=== PATIENT | female | born 1935 | race Caucasian/White ===

== ENCOUNTER 2018-09-18 17:06 | Inpatient (IN) | payer MEDICARE, BC ==
[2018-09-18] MEDS ORDERED: SODIUM CHLORIDE 0.9% 1,000 ML IV ONE (17:15)
[2018-09-18] MEDS ORDERED: ONDANSETRON 4 MG/2 ML VIAL IVP STA (17:35)
--- NOTE | 2018-09-18 17:48 | ED ---
Altered Mental Status HPI - General Chief Complaint: Altered Mental Status Stated Complaint: Altered Mental Status Time Seen by Provider: 09/18/18 17:08 Source: EMS, RN notes reviewed, old records reviewed Mode of arrival: EMS Limitations: altered mental status - History of Present Illness Initial Comments: This is a 83-year-old female the ER for evaluation of altered mental status, patient is a poor historian and unable to give any history secondary to dementia here for Change in mental status, history of CVA. Otherwise history is obtained from EMS and patient's transferring charting, patient comes with a care facility.( MD Complaint: altered mental status, decreased responsiveness, weakness -: hour(s) Severity: moderate Consistency of Symptoms: getting worse Context: history of similar presentation Associated Symptoms: denies other symptoms - Related Data Home Medications Medication Instructions Recorded Confirmed Acetaminophen Tab [Tylenol Tab] 650 mg PO Q6H PRN 09/18/18 09/18/18 Ascorbic Acid [Vitamin C] 1,000 mg PO BID 09/18/18 09/18/18 Aspirin 81 mg PO HS 09/18/18 09/18/18 Baclofen [Lioresal] 20 mg PO BID 09/18/18 09/18/18 Cholecalciferol [Vitamin D3] 5,000 unit PO MO 09/18/18 09/18/18 Divalproex [Depakote] 250 mg PO BID@0700,1600 09/18/18 09/18/18 Ferrous Sulfate [Feosol] 325 mg PO TID@0700,1300,1900 09/18/18 09/18/18 Ipratropium-Albuterol Nebulize 3 ml INHALATION RT-Q4H PRN 09/18/18 09/18/18 [Duoneb 0.5 mg-3 mg/3 ml Soln] Levothyroxine Sodium [Synthroid] 50 mcg PO DAILY 09/18/18 09/18/18 Lisinopril [Zestril] 5 mg PO DAILY 09/18/18 09/18/18 Melatonin 9 mg PO HS PRN 09/18/18 09/18/18 Methenamine Hippurate 1 gm PO BID 09/18/18 09/18/18 Omeprazole [PriLOSEC] 20 mg PO DAILY 09/18/18 09/18/18 Sertraline [Zoloft] 100 mg PO DAILY 09/18/18 09/18/18 amLODIPine [Norvasc] 10 mg PO DAILY 09/18/18 09/18/18 rOPINIRole HCL [Requip] 0.25 mg PO DAILY 09/18/18 09/18/18 Allergies Allergy/AdvReac Type Severity Reaction Status Date / Time codeine AdvReac Unknown Verified 09/18/18 18:08 Review of Systems ROS Statement: Those systems with pertinent positive or pertinent negative responses have been documented in the HPI. ROS Other: All systems not noted in ROS Statement are negative. Past Medical History Past Medical History: CVA/TIA, GERD/Reflux, Hypertension, Memory Impairment, Osteoarthritis (OA), Thyroid Disorder Additional Past Medical History / Comment(s): restless leg syndrome, hemiplegia, hemiparesis, anemia, History of Any Multi-Drug Resistant Organisms: Unobtainable Additional Past Surgical History / Comment(s): ileostomy Past Psychological History: Unable to Obtain Smoking Status: Unknown if ever smoked Past Alcohol Use History: Unable to Obtain Past Drug Use History: Unable to Obtain General Exam Limitations: altered mental status General appearance: alert, in no apparent distress Head exam: Present: atraumatic, normocephalic, normal inspection Eye exam: Present: normal appearance, PERRL, EOMI. Absent: scleral icterus, conjunctival injection, periorbital swelling ENT exam: Present: normal exam, mucous membranes moist Neck exam: Present: normal inspection. Absent: tenderness, meningismus, lympha denopathy Respiratory exam: Present: normal lung sounds bilaterally. Absent: respiratory distress, wheezes, rales, rhonchi, stridor Cardiovascular Exam: Present: regular rate, normal rhythm, normal heart sounds. Absent: systolic murmur, diastolic murmur, rubs, gallop, clicks GI/Abdominal exam: Present: soft, normal bowel sounds. Absent: distended, tenderness, guarding, rebound, rigid Extremities exam: Present: normal inspection, full ROM, normal capillary refill. Absent: tenderness, pedal edema, joint swelling, calf tenderness Back exam: Present: normal inspection Neurological exam: Present: alert, oriented X3, CN II-XII intact Psychiatric exam: Present: normal affect, normal mood Skin exam: Present: warm, dry, intact, normal color. Absent: rash Course Vital Signs 09/18/18 17:13 Temperature 99.1 F Pulse Rate 89 Respiratory 18 Rate Blood Pressure 146/61 O2 Sat by Pulse 98 Oximetry - Reevaluation(s) Reevaluation #1: 09/18/18 18:12 Medical record reviewed as well as transfer paperwork Reevaluation #2: 09/18/18 18:12 No current improvement in patient's mental state Medical Decision Making - Medical Decision Making 83 female the ER for evaluation of altered mental status, significant urinary t ract infection dehydration with a lecture abnormalities. Patient will admit for rehydration and IV antibiotics - Lab Data Result diagrams: 09/18/18 17:18 09/18/18 17:18 Lab Results 09/18/18 09/18/18 09/18/18 Range/Units 17:18 17:18 17:18 WBC 12.5 H (3.8-10.6) k/uL RBC 3.24 L (3.80-5.40) m/uL Hgb 10.5 L (11.4-16.0) gm/dL Hct 32.5 L (34.0-46.0) % MCV 100.3 H (80.0-100.0) fL MCH 32.3 (25.0-35.0) pg MCHC 32.2 (31.0-37.0) g/dL RDW 14.6 (11.5-15.5) % Plt Count 169 (150-450) k/uL Neutrophils % 65 % Lymphocytes % 20 % Monocytes % 8 % Eosinophils % 4 % Basophils % 0 % Neutrophils # 8.1 H (1.3-7.7) k/uL Lymphocytes # 2.5 (1.0-4.8) k/uL Monocytes # 1.1 H (0-1.0) k/uL Eosinophils # 0.5 (0-0.7) k/uL Basophils # 0.0 (0-0.2) k/uL Hypochromasia Slight Macrocytosis Slight PT (9.0-12.0) sec INR (<1.2) APTT (22.0-30.0) sec Sodium 143 (137-145) mmol/L Potassium 6.4 H* (3.5-5.1) mmol/L Chloride 118 H (98-107) mmol/L Carbon Dioxide 15 L (22-30) mmol/L Anion Gap 10 mmol/L BUN 76 H (7-17) mg/dL Creatinine 1.40 H (0.52-1.04) mg/dL Est GFR (CKD-EPI)AfAm 40 (>60 ml/min/1.73 sqM) Est GFR (CKD-EPI)NonAf 35 (>60 ml/min/1.73 sqM) Glucose 101 H (74-99) mg/dL Calcium 10.5 H (8.4-10.2) mg/dL Total Bilirubin 0.3 (0.2-1.3) mg/dL AST 21 (14-36) U/L ALT 20 (9-52) U/L Alkaline Phosphatase 84 (38-126) U/L Ammonia 22 (<30) umol/L Troponin I (0.000-0.034) ng/mL Total Protein 8.5 H (6.3-8.2) g/dL Albumin 4.2 (3.5-5.0) g/dL Urine Color Urine Appearance (Clear) Urine pH (5.0-8.0) Ur Specific [place] (1.001-1.035) Urine Protein (Negative) Urine Glucose (UA) (Negative) Urine Ketones (Negative) Urine Blood (Negative) Urine Nitrite (Negative) Urine Bilirubin (Negative) Urine Urobilinogen (<2.0) mg/dL Ur Leukocyte Esterase (Negative) Urine RBC (0-5) /hpf Urine WBC (0-5) /hpf Urine WBC Clumps (None) /hpf Urine Bacteria (None) /hpf Urine Opiates Screen (NotDetected) Ur Oxycodone Screen (NotDetected) Urine Methadone Screen (NotDetected) Ur Propoxyphene Screen (NotDetected) Ur Barbiturates Screen (NotDetected) U Tricyclic Antidepress (NotDetected) Ur Phencyclidine Scrn (NotDetected) Ur Amphetamines Screen (NotDetected) U Methamphetamines Scrn (NotDetected) U Benzodiazepines Scrn (NotDetected) Urine Cocaine Screen (NotDetected) U Marijuana (THC) Screen (NotDetected) 09/18/18 09/18/18 09/18/18 Range/Units 17:18 17:18 17:56 WBC (3.8-10.6) k/uL RBC (3.80-5.40) m/uL Hgb (11.4-16.0) gm/dL Hct (34.0-46.0) % MCV (80.0-100.0) fL MCH (25.0-35.0) pg MCHC (31.0-37.0) g/dL RDW (11.5-15.5) % Plt Count (150-450) k/uL Neutrophils % % Lymphocytes % % Monocytes % % Eosinophils % % Basophils % % Neutrophils # (1.3-7.7) k/uL Lymphocytes # (1.0-4.8) k/uL Monocytes # (0-1.0) k/uL Eosinophils # (0-0.7) k/uL Basophils # (0-0.2) k/uL Hypochromasia Macrocytosis PT 10.3 (9.0-12.0) sec INR 1.0 (<1.2) APTT 20.9 L (22.0-30.0) sec Sodium (137-145) mmol/L Potassium (3.5-5.1) mmol/L Chloride (98-107) mmol/L Carbon Dioxide (22-30) mmol/L Anion Gap mmol/L BUN (7-17) mg/dL Creatinine (0.52-1.04) mg/dL Est GFR (CKD-EPI)AfAm (>60 ml/min/1.73 sqM) Est GFR (CKD-EPI)NonAf (>60 ml/min/1.73 sqM) Glucose (74-99) mg/dL Calcium (8.4-10.2) mg/dL Total Bilirubin (0.2-1.3) mg/dL AST (14-36) U/L ALT (9-52) U/L Alkaline Phosphatase (38-126) U/L Ammonia (<30) umol/L Troponin I <0.012 (0.000-0.034) ng/mL Total Protein (6.3-8.2) g/dL Albumin (3.5-5.0) g/dL Urine Color Light Yellow Urine Appearance Cloudy H (Clear) Urine pH 5.0 (5.0-8.0) Ur Specific [place] 1.013 (1.001-1.035) Urine Protein Trace H (Negative) Urine Glucose (UA) Negative (Negative) Urine Ketones Negative (Negative) Urine Blood Moderate H (Negative) Urine Nitrite Negative (Negative) Urine Bilirubin Negative (Negative) Urine Urobilinogen <2.0 (<2.0) mg/dL Ur Leukocyte Esterase Large H (Negative) Urine RBC 29 H (0-5) /hpf Urine WBC >182 H (0-5) /hpf Urine WBC Clumps Many H (None) /hpf Urine Bacteria Rare H (None) /hpf Urine Opiates Screen Not Detected (NotDetected) Ur Oxycodone Screen Not Detected (NotDetected) Urine Methadone Screen Not Detected (NotDetected) Ur Propoxyphene Screen Not Detected (NotDetected) Ur Barbiturates Screen Not Detected (NotDetected) U Tricyclic Antidepress Not Detected (NotDetected) Ur Phencyclidine Scrn Not Detected (NotDetected) Ur Amphetamines Screen Not Detected (NotDetected) U Methamphetamines Scrn Not Detected (NotDetected) U Benzodiazepines Scrn Not Detected (NotDetected) Urine Cocaine Screen Not Detected (NotDetected) U Marijuana (THC) Screen Not Detected (NotDetected) - EKG Data -: EKG Interpreted by Me (EKG shows sinus rhythm rate of 80, OR 180, QRS 90, QTc 408) Disposition Clinical Impression: Altered mental status, UTI (urinary tract infection), ARF (acute renal failure) Disposition: ADMITTED IP TO THIS [facility] Condition: Fair Is patient prescribed a controlled substance at d/c from ED?: No Referrals: Miguel Newton MD [Primary Care Provider] - 1-2 days
[2018-09-18 17:54] LABS: Albumin 4.2 g/dL (3.5-5.0); Basophils % (A) 0 %; Calcium 10.5 mg/dL (8.4-10.2); Eosinophils # (A) 0.5 k/uL (0-0.7); Eosinophils % (A) 4 %; HCT 32.5 % (34.0-46.0); HGB 10.5 gm/dL (11.4-16.0); Hypochromasia Slight; Lymphocytes # (A) 2.5 k/uL (1.0-4.8); Lymphocytes % (A) 20 %; MCH 32.3 pg (25.0-35.0); MCHC 32.2 g/dL (31.0-37.0); MCV 100.3 fL (80.0-100.0); Macrocytosis Slight; Mean Platelet Volume 10.6; Monocytes # (A) 1.1 k/uL (0-1.0); Monocytes % (A) 8 %; Neutrophils # (A) 8.1 k/uL (1.3-7.7); Neutrophils % (A) 65 %; Platelet Count 169 k/uL (150-450); RBC 3.24 m/uL (3.80-5.40); RDW 14.6 % (11.5-15.5); Total Bilirubin 0.3 mg/dL (0.2-1.3); Total Protein 8.5 g/dL (6.3-8.2); WBC 12.5 k/uL (3.8-10.6)
[2018-09-18 18:01] LABS: Potassium 6.4 mmol/L (3.5-5.1)
[2018-09-18 18:09] LABS: Prothrombin Time 10.3 sec (9.0-12.0)
[2018-09-18 18:14] LABS: Partial Thromboplastin Time 20.9 sec (22.0-30.0)
[2018-09-18 18:24] LABS: Appearance,Urine Cloudy (Clear); Bacteria,Urine Rare /hpf; Bilirubin,Urine Negative (Negative); Blood,Urine Moderate (Negative); Color,Urine Light Yellow; Glucose,Urine (UA) Negative (Negative); Ketones,Urine Negative (Negative); Leukocyte Esterase,Urine Large (Negative); Nitrite,Urine Negative (Negative); Protein,Urine Trace (Negative); RBC,Urine 29 /hpf (0-5); Specific Gravity,Urine 1.013 (1.001-1.035); Urobilinogen,Urine <2.0 mg/dL (<2.0); WBC,Urine >182 /hpf (0-5)
[2018-09-18 18:33] LABS: Amphetamine Screen,Urine Not Detected (NotDetected); Barbiturate Screen,Urine Not Detected (NotDetected); Benzodiazepines Screen,Urine Not Detected (NotDetected); Cocaine Screen,Urine Not Detected (NotDetected); Methadone Screen, Urine Not Detected (NotDetected); Opiate Screen,Urine Not Detected (NotDetected); Oxycodone Screen, Urine Not Detected (NotDetected); Phencyclidine Screen,Urine Not Detected (NotDetected); Tricyclic Antidepressant,Urine Not Detected (NotDetected); Urn Cannabinoid Scrn Not Detected (NotDetected)
[2018-09-18] MEDS ORDERED: SODIUM CHLORIDE 0.9% 1,000 ML IV STA (18:39)
[2018-09-18] MEDS ORDERED: SODIUM CHLORIDE 0.9% 500 ML 500 ML IV STA (18:39)
--- NOTE | 2018-09-18 19:57 | CT ---
EXAMINATION: CT brain wo con DATE AND TIME: 09/18/2018 7:32 PM CLINICAL INDICATION: PHH; pain TECHNIQUE: Standard departmental protocol.; 1099.4; COMPARISON: CT 06/09/2009 FINDINGS: The calvarium is intact. There is no intracranial hemorrhage. There is no intracranial mass or mass effect. No definite new intra-axial or extra-axial attenuation defect. The paranasal sinuses, middle ear cavities, and mastoid sinus air cells are clear. The orbits are unremarkable. IMPRESSION: NO ACUTE PROCESS.
[2018-09-18] MEDS ORDERED: DEXTROSE 50% SYRINGE 50 ML IVP STA (20:25)
[2018-09-18] MEDS ORDERED: INSULIN REGULAR 100 UNIT/ML VIAL IV ONE (20:25)
[2018-09-18] MEDS ORDERED: SODIUM BICARB 8.4% 50 ML SYR (1 MEQ/ML) IV STA (20:25)
[2018-09-18 22:07] VITALS: BMI 32.9
[2018-09-18] MEDS ORDERED: IPRATROPIUM-ALBUTEROL 3 ML NEB INHALATION PRN (22:32)
[2018-09-19 06:21] LABS: Glucose,Whole Blood 122 mg/dL (75-99)
[2018-09-19] MEDS: DIVALPROEX 250 MG TABLET.DR PO SCH ×2 (06:27→18:50)
[2018-09-19 07:28] LABS: Calcium 9.7 mg/dL (8.4-10.2)
[2018-09-19 07:29] LABS: Basophils % (A) 0 %; Eosinophils # (A) 0.3 k/uL (0-0.7); Eosinophils % (A) 3 %; HGB 9.5 gm/dL (11.4-16.0); Hypochromasia Slight; Lymphocytes # (A) 2.1 k/uL (1.0-4.8); Lymphocytes % (A) 22 %; MCH 32.2 pg (25.0-35.0); MCHC 31.7 g/dL (31.0-37.0); MCV 101.5 fL (80.0-100.0); Macrocytosis Slight; Mean Platelet Volume 10.1; Monocytes % (A) 10 %; Neutrophils # (A) 5.7 k/uL (1.3-7.7); Neutrophils % (A) 61 %; Platelet Count 145 k/uL (150-450); RBC 2.96 m/uL (3.80-5.40); RDW 14.6 % (11.5-15.5); WBC 9.4 k/uL (3.8-10.6)
[2018-09-19] MEDS: ACETAMINOPHEN TAB 325 MG TAB PO PRN (09:09)
[2018-09-19] MEDS: BACLOFEN 10 MG TAB PO SCH ×2 (09:09→20:00)
[2018-09-19] MEDS: ENOXAPARIN 40 MG/0.4 ML SYRINGE SQ SCH (09:10)
--- NOTE | 2018-09-19 14:10 | P.CNNES ---
History of Present Illness Consult date: 09/19/18 Reason for Consult: AMS Chief complaint: AMS History of Present Illness: Patient is a 83-year-old female,, who is a poor historian due to dementia, was brought to the hospital for altered mental status, probably worse from baseline. Patient tells me that she came to the hospital but was she was "shaking a little". Patient denies any history of Parkinson's disease, although she is on Requip very low dose. Patient is very pleasant, but confused. Patient denies any stroke symptoms, focal deficits. There was some complaints of decreased responsiveness.patient underwent computed tomography scan of the head, which revealed no acute process. blood test shows WBC 12.5 hemoglobin 10.5, with elevated MCV 100.3, platelets 169. INR normal, Chem-7 showed sodium 143 potassium 6.4, which has improved to 6.0. BUNs 76 and creatinine 1.40, which has improved to 56 and 0.79 respectively. calcium is elevated and 0.5 but now normal 9.7.UA showed, WBCs more than 182, rare bacteria. patient is on Depakote for unclear reasons. Patient does not believe she has any history of seizures. Patient has been diagnosed with UTI, started on Rocephin 1 g every 24 hours. she denies headache. Patient denies diabetes. Review of Systems Constitutional: Reports as per HPI, Denies chronic headaches, Denies fever Ears, nose, mouth and throat: Denies dysphagia, Denies headache, Denies vertigo Neurological: Reports weakness, Denies aphasia, Denies headaches, Denies visual changes Endocrine: Reports as per HPI Past Medical History Past Medical History: CVA/TIA, GERD/Reflux, Hypertension, Memory Impairment, Osteoarthritis (OA), Seizure Disorder, Thyroid Disorder Additional Past Medical History / Comment(s): restless leg syndrome, hemiplegia, hemiparesis, anemia, History of Any Multi-Drug Resistant Organisms: MRSA Date of last positivie culture/infection: 2008 MDRO Source:: stool (per pt's daughter) Additional Past Surgical History / Comment(s): ileostomy Past Anesthesia/Blood Transfusion Reactions: No Reported Reaction Past Psychological History: Anxiety Additional Psychological History / Comment(s): per pt's daughter Smoking Status: Never smoker Past Alcohol Use History: Unable to Obtain Past Drug Use History: Unable to Obtain Additional Drug Use History / Comment(s): per patient's daughter, 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 - Past Family History Father Family Medical History: Cancer Additional Family Medical History / Comment(s): lung CA Mother Family Medical History: Cancer Sister(s) Additional Family Medical History / Comment(s): emphysema Medications and Allergies Home Medications Medication Instructions Recorded Confirmed Type Acetaminophen Tab [Tylenol Tab] 650 mg PO Q6H PRN 09/18/18 09/18/18 History Ascorbic Acid [Vitamin C] 1,000 mg PO BID 09/18/18 09/18/18 History Aspirin 81 mg PO HS 09/18/18 09/18/18 History Baclofen [Lioresal] 20 mg PO BID 09/18/18 09/18/18 History Cholecalciferol [Vitamin D3] 5,000 unit PO MO 09/18/18 09/18/18 History Divalproex [Depakote] 250 mg PO BID@0700,1600 09/18/18 09/18/18 History Ferrous Sulfate [Feosol] 325 mg PO TID@0700,1300,1900 09/18/18 09/18/18 History Ipratropium-Albuterol Nebulize 3 ml INHALATION RT-Q4H PRN 09/18/18 09/18/18 History [Duoneb 0.5 mg-3 mg/3 ml Soln] Levothyroxine Sodium [Synthroid] 50 mcg PO DAILY 09/18/18 09/18/18 History Lisinopril [Zestril] 5 mg PO DAILY 09/18/18 09/18/18 History Melatonin 9 mg PO HS PRN 09/18/18 09/18/18 History Methenamine Hippurate 1 gm PO BID 09/18/18 09/18/18 History Omeprazole [PriLOSEC] 20 mg PO DAILY 09/18/18 09/18/18 History Sertraline [Zoloft] 100 mg PO DAILY 09/18/18 09/18/18 History amLODIPine [Norvasc] 10 mg PO DAILY 09/18/18 09/18/18 History rOPINIRole HCL [Requip] 0.25 mg PO DAILY 09/18/18 09/18/18 History Allergies Allergy/AdvReac Type Severity Reaction Status Date / Time codeine AdvReac Unknown Verified 09/18/18 18:08 Physical Examination - Vital Signs Vital Signs: Vital Signs Temp Pulse Pulse Resp BP BP Pulse Ox 09/19/18 12:50 97.7 F 74 16 147/78 94 L 09/19/18 11:49 99 09/19/18 08:30 98.1 F 73 16 144/61 94 L 09/19/18 04:00 98.2 F 75 19 98 09/18/18 23:31 70 19 09/18/18 23:27 98.2 F 70 19 144/65 98 09/18/18 21:59 98.6 F 82 19 149/78 96 09/18/18 21:21 76 18 132/64 99 09/18/18 21:08 77 18 132/64 99 09/18/18 20:14 65 18 104/54 100 09/18/18 17:13 99.1 F 89 18 146/61 98 Intake and Output 09/18/18 09/19/18 09/19/18 22:59 06:59 14:59 Intake Total 1300 360 Output Total 50 250 Balance 1250 110 Intake: Intake, IV Titration 800 Amount cefTRIAXone 1 gm In 800 Sodium Chloride 0.9% 50 ml @ 100 mls/hr IVPB Q24HR [facility] Rx#:[id number] Oral 500 360 Output: Urine 250 Stool 50 Other: Voiding Method Diaper Diaper # Voids 1 Weight 89.811 kg 89.8 kg On examination patient is an elderly female, in no distress. She is alert and awake, pleasantly confused. Patient states that it is year 2018, could not tell the month.. She could not tell what building she is in or the city although states that she is in [facility]. She has 6 children. She knows name of the current president. Her speech and language functions are normal. Attention span, concentration and fund of knowledge is limited. On cranial nerve examination, pupils are round and reacting to light. Visual mcgarry appears full, face is symmetric and tongue protrudes in midline. On muscle strength testing there is nopronator drift in the strength is normal in both arms distally and proximally. Patient's strength is normal in the right leg, although she has left partial foot drop. Patient states she does have chronic back issues, which probably is the cause of left foot weakness. Sensations are equal. Reflexes are diminished and plantars withdrawal. Patient has moderate postural tremor on the right, mild on the left. Patient also has moderate tremors at rest bilaterally, right slightly more than left. Tone of muscles is normal. Bulk of muscles normal. Results - Laboratory Findings CBC and BMP: 09/19/18 06:51 09/19/18 06:51 Abnormal Lab Findings: Abnormal Labs 09/18/18 09/18/18 09/18/18 17:18 17:18 17:18 WBC 12.5 H RBC 3.24 L Hgb 10.5 L Hct 32.5 L MCV 100.3 H Plt Count Neutrophils # 8.1 H Monocytes # 1.1 H APTT 20.9 L Sodium Potassium 6.4 H* Chloride 118 H Carbon Dioxide 15 L BUN 76 H Creatinine 1.40 H Glucose 101 H POC Glucose (mg/dL) Calcium 10.5 H Total Protein 8.5 H Urine Appearance Urine Protein Urine Blood Ur Leukocyte Esterase Urine RBC Urine WBC Urine WBC Clumps Urine Bacteria 09/18/18 09/19/18 09/19/18 17:56 06:20 06:51 WBC RBC 2.96 L Hgb 9.5 L Hct 30.0 L MCV 101.5 H Plt Count 145 L Neutrophils # Monocytes # APTT Sodium Potassium Chloride Carbon Dioxide BUN Creatinine Glucose POC Glucose (mg/dL) 122 H Calcium Total Protein Urine Appearance Cloudy H Urine Protein Trace H Urine Blood Moderate H Ur Leukocyte Esterase Large H Urine RBC 29 H Urine WBC >182 H Urine WBC Clumps Many H Urine Bacteria Rare H 09/19/18 06:51 WBC RBC Hgb Hct MCV Plt Count Neutrophils # Monocytes # APTT Sodium 148 H Potassium 6.0 H Chloride 122 H Carbon Dioxide 21 L BUN 56 H Creatinine Glucose 103 H POC Glucose (mg/dL) Calcium Total Protein Urine Appearance Urine Protein Urine Blood Ur Leukocyte Esterase Urine RBC Urine WBC Urine WBC Clumps Urine Bacteria Assessment and Plan Assessment: * Altered mental status, probably due to mild delirium/metabolic encephalopathy, probability due to reasons mentioned below. * Acute UTI * Acute renal insufficiency, improving. * Electrolyte imbalance, with hyperkalemia, hypocalcemia, improved. * Tremors, possibly metabolic, possible enhanced from Depakote. No definitive parkinsonism. * Dementia, at least moderate degree. Plan: * We will check Depakote level, B12, folate. * EEG to rule out any epileptiform activity and evaluate for encephalopathy. * Your medical management. * Patient has tremors, which could be related to metabolic encephalopathy versus related to Depakote. May need follow-up in the neurology office, once medically stabilized to rule out parkinsonism. * We will follow clinically.
[2018-09-19] MEDS: LISINOPRIL 5 MG TAB PO SCH (18:50)
[2018-09-19] MEDS: amLODIPine 10 MG TAB PO SCH (18:51)
[2018-09-19] MEDS: ASPIRIN 81 MG PO SCH (19:59)
[2018-09-19] MEDS: ASCORBIC ACID 500 MG TAB PO SCH (20:00)
[2018-09-19] MEDS: FAMOTIDINE 20 MG/2 ML VIAL IV SCH (20:52)
[2018-09-19] MEDS: METHENAMINE HIPPURATE 1 GM PO SCH (20:53)
[2018-09-19] MEDS ORDERED: FAMOTIDINE 20 MG/2 ML VIAL IV SCH (21:00)
--- NOTE | 2018-09-19 22:31 | P.HPIM ---
History of Present Illness This is a pleasant 83 years old male with past medical history of CVA/TIA, GERD, hypertension, memory impairment, osteoarthritis, seizure disorder, hypothyroidism, restless leg syndrome Residents with altered mental status, patient could not provide history and information, she has history of dementia, patient was sent from [facility] for altered mental status. Patient is fully awake and some orientation however she is poor historian, she does not know why she is in the hospital. however she feels generally week. Vitals are stable, patient is afebrile. WBC 12.5 on presentation coming down to 9.4 and elements of hemodilution, hemoglobin 9.5, platelets 145. Potassium 6.4 coming down to 6.0, sodium 148, creatinine 1.4, down to 0.7. Urinalysis is suspicious for infection. Urine drug screen is negative. EKG showing normal sinus rhythm at [address]-T changes.brain CT is showing no acute process. There is no chest x-ray done. Patient was started on ceftriaxone, and given intravenous fluids Review of Systems CONSTITUTIONAL: No fever, no malaise, no fatigue. HEENT: No recent visual problems or hearing problems. Denied any sore throat. CARDIOVASCULAR: No orthopnea, PND, no palpitations, no syncope. PULMONARY: No shortness of breath, no cough, no hemoptysis. GASTROINTESTINAL: No diarrhea, no nausea, no vomiting, no abdominal pain. Normoactive bowel sounds. NEUROLOGICAL: No headaches, no weakness, no numbness. HEMATOLOGICAL: Denies any bleeding or petechiae. GENITOURINARY: Denies any burning micturition, frequency, or urgency. MUSCULOSKELETAL/RHEUMATOLOGICAL: Denies any joint pain, swelling, or any muscle pain. ENDOCRINE: Denies any polyuria or polydipsia. Past Medical History Past Medical History: CVA/TIA, GERD/Reflux, Hypertension, Memory Impairment, Osteoarthritis (OA), Seizure Disorder, Thyroid Disorder Additional Past Medical History / Comment(s): restless leg syndrome, hemiplegia, hemiparesis, anemia, History of Any Multi-Drug Resistant Organisms: MRSA Date of last positivie culture/infection: 2008 MDRO Source:: stool (per pt's daughter) Additional Past Surgical History / Comment(s): ileostomy Past Anesthesia/Blood Transfusion Reactions: No Reported Reaction Past Psychological History: Anxiety Additional Psychological History / Comment(s): per pt's daughter Smoking Status: Never smoker Past Alcohol Use History: Unable to Obtain Past Drug Use History: Unable to Obtain Additional Drug Use History / Comment(s): per patient's daughter, 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 - Past Family History Father Family Medical History: Cancer Additional Family Medical History / Comment(s): lung CA Mother Family Medical History: Cancer Sister(s) Additional Family Medical History / Comment(s): emphysema Medications and Allergies Home Medications Medication Instructions Recorded Confirmed Type Acetaminophen Tab [Tylenol Tab] 650 mg PO Q6H PRN 09/18/18 09/18/18 History Ascorbic Acid [Vitamin C] 1,000 mg PO BID 09/18/18 09/18/18 History Aspirin 81 mg PO HS 09/18/18 09/18/18 History Baclofen [Lioresal] 20 mg PO BID 09/18/18 09/18/18 History Cholecalciferol [Vitamin D3] 5,000 unit PO MO 09/18/18 09/18/18 History Divalproex [Depakote] 250 mg PO BID@0700,1600 09/18/18 09/18/18 History Ferrous Sulfate [Feosol] 325 mg PO TID@0700,1300,1900 09/18/18 09/18/18 History Ipratropium-Albuterol Nebulize 3 ml INHALATION RT-Q4H PRN 09/18/18 09/18/18 History [Duoneb 0.5 mg-3 mg/3 ml Soln] Levothyroxine Sodium [Synthroid] 50 mcg PO DAILY 09/18/18 09/18/18 History Lisinopril [Zestril] 5 mg PO DAILY 09/18/18 09/18/18 History Melatonin 9 mg PO HS PRN 09/18/18 09/18/18 History Methenamine Hippurate 1 gm PO BID 09/18/18 09/18/18 History Omeprazole [PriLOSEC] 20 mg PO DAILY 09/18/18 09/18/18 History Sertraline [Zoloft] 100 mg PO DAILY 09/18/18 09/18/18 History amLODIPine [Norvasc] 10 mg PO DAILY 09/18/18 09/18/18 History rOPINIRole HCL [Requip] 0.25 mg PO DAILY 09/18/18 09/18/18 History Allergies Allergy/AdvReac Type Severity Reaction Status Date / Time codeine AdvReac Unknown Verified 09/18/18 18:08 Physical Exam Vitals: Vital Signs Temp Pulse Pulse Resp BP BP Pulse Ox 09/19/18 04:00 98.2 F 75 19 98 09/18/18 23:31 70 19 09/18/18 23:27 98.2 F 70 19 144/65 98 09/18/18 21:59 98.6 F 82 19 149/78 96 09/18/18 21:21 76 18 132/64 99 09/18/18 21:08 77 18 132/64 99 09/18/18 20:14 65 18 104/54 100 09/18/18 17:13 99.1 F 89 18 146/61 98 Intake and Output 09/18/18 09/19/18 09/19/18 22:59 06:59 14:59 Intake Total 1300 Output Total 50 Balance 1250 Intake: Intake, IV Titration 800 Amount cefTRIAXone 1 gm In 800 Sodium Chloride 0.9% 50 ml @ 100 mls/hr IVPB Q24HR [facility] Rx#:[id number] Oral 500 Output: Stool 50 Other: Voiding Method Diaper # Voids 1 Weight 89.811 kg 89.8 kg GENERAL: The patient is alert and oriented x3, not in any acute distress. Well developed, well nourished. HEENT: Pupils are round and equally reacting to light. EOMI. No scleral icterus. No conjunctival pallor. Normocephalic, atraumatic. No pharyngeal erythema. No thyromegaly. CARDIOVASCULAR: S1 and S2 present. No murmurs, rubs, or gallops. PULMONARY: Chest is clear to auscultation, no wheezing or crackles. ABDOMEN: Soft, nontender, nondistended, normoactive bowel sounds. No palpable organomegaly. MUSCULOSKELETAL: No joint swelling or deformity. EXTREMITIES: No cyanosis, clubbing, or pedal edema. NEUROLOGICAL: Gross neurological examination did not reveal any focal deficits. SKIN: No rashes. Results CBC & Chem 7: 09/19/18 06:51 09/19/18 06:51 Labs: Abnormal Lab Results - Last 24 Hours (Table) 09/18/18 09/18/18 09/18/18 Range/Units 17:18 17:18 17:18 WBC 12.5 H (3.8-10.6) k/uL RBC 3.24 L (3.80-5.40) m/uL Hgb 10.5 L (11.4-16.0) gm/dL Hct 32.5 L (34.0-46.0) % MCV 100.3 H (80.0-100.0) fL Plt Count (150-450) k/uL Neutrophils # 8.1 H (1.3-7.7) k/uL Monocytes # 1.1 H (0-1.0) k/uL APTT 20.9 L (22.0-30.0) sec Sodium (137-145) mmol/L Potassium 6.4 H* (3.5-5.1) mmol/L Chloride 118 H (98-107) mmol/L Carbon Dioxide 15 L (22-30) mmol/L BUN 76 H (7-17) mg/dL Creatinine 1.40 H (0.52-1.04) mg/dL Glucose 101 H (74-99) mg/dL POC Glucose (mg/dL) (75-99) mg/dL Calcium 10.5 H (8.4-10.2) mg/dL Total Protein 8.5 H (6.3-8.2) g/dL Urine Appearance (Clear) Urine Protein (Negative) Urine Blood (Negative) Ur Leukocyte Esterase (Negative) Urine RBC (0-5) /hpf Urine WBC (0-5) /hpf Urine WBC Clumps (None) /hpf Urine Bacteria (None) /hpf 09/18/18 09/19/18 09/19/18 Range/Units 17:56 06:20 06:51 WBC (3.8-10.6) k/uL RBC 2.96 L (3.80-5.40) m/uL Hgb 9.5 L (11.4-16.0) gm/dL Hct 30.0 L (34.0-46.0) % MCV 101.5 H (80.0-100.0) fL Plt Count 145 L (150-450) k/uL Neutrophils # (1.3-7.7) k/uL Monocytes # (0-1.0) k/uL APTT (22.0-30.0) sec Sodium (137-145) mmol/L Potassium (3.5-5.1) mmol/L Chloride (98-107) mmol/L Carbon Dioxide (22-30) mmol/L BUN (7-17) mg/dL Creatinine (0.52-1.04) mg/dL Glucose (74-99) mg/dL POC Glucose (mg/dL) 122 H (75-99) mg/dL Calcium (8.4-10.2) mg/dL Total Protein (6.3-8.2) g/dL Urine Appearance Cloudy H (Clear) Urine Protein Trace H (Negative) Urine Blood Moderate H (Negative) Ur Leukocyte Esterase Large H (Negative) Urine RBC 29 H (0-5) /hpf Urine WBC >182 H (0-5) /hpf Urine WBC Clumps Many H (None) /hpf Urine Bacteria Rare H (None) /hpf 09/19/18 Range/Units 06:51 WBC (3.8-10.6) k/uL RBC (3.80-5.40) m/uL Hgb (11.4-16.0) gm/dL Hct (34.0-46.0) % MCV (80.0-100.0) fL Plt Count (150-450) k/uL Neutrophils # (1.3-7.7) k/uL Monocytes # (0-1.0) k/uL APTT (22.0-30.0) sec Sodium 148 H (137-145) mmol/L Potassium 6.0 H (3.5-5.1) mmol/L Chloride 122 H (98-107) mmol/L Carbon Dioxide 21 L (22-30) mmol/L BUN 56 H (7-17) mg/dL Creatinine (0.52-1.04) mg/dL Glucose 103 H (74-99) mg/dL POC Glucose (mg/dL) (75-99) mg/dL Calcium (8.4-10.2) mg/dL Total Protein (6.3-8.2) g/dL Urine Appearance (Clear) Urine Protein (Negative) Urine Blood (Negative) Ur Leukocyte Esterase (Negative) Urine RBC (0-5) /hpf Urine WBC (0-5) /hpf Urine WBC Clumps (None) /hpf Urine Bacteria (None) /hpf Microbiology - Last 24 Hours (Table) 09/18/18 17:56 Urine Culture - Preliminary Urine,Catheterized Thrombosis Risk Factor Assmnt - Choose All That Apply Each Factor Represents 1 point: Obesity (BMI >25) Each Risk Factor Represents 3 Points: Age 75 years or older Thrombosis Risk Factor Assessment Total Risk Factor Score: 4 Thrombosis Risk Factor Assessment Level: Moderate Risk Assessment and Plan Assessment: Altered mental status, mostly metabolic encephalopathy Urinary tract infection Acute kidney injury, resolved Hyperkalemia Hypernatremia History of CVA with residual right hemiparesis Tremor History of GERD Essential hypertension History of memory impairment History of osteoarthritis History of seizure disorder Hypothyroidism Procedures leg syndrome Plan: This is a pleasant 83 years old female who presents with altered mental status, we'll ask for neurological evaluation. We'll do a swallow evaluation continue with IV hydration, monitor potassium level, continue with antibiotics and follow-up urine culture results. Labs and medication were reviewed.. Continue same treatment. Continue with symptomatic treatment. Resume home medication. Monitor lytes and vitals. DVT and GI prophylaxis. Further recommendations of the clinical course of the patient DVT prophylaxis: Subcutaneous Lovenox GI Prophylaxis: Pepcid PT/OT: Pending Prognosis is guarded
[2018-09-19 23:16] LABS: Anion Gap 5 mmol/L; Blood Urea Nitrogen 36 mg/dL (7-17); Calcium 9.6 mg/dL (8.4-10.2); Carbon Dioxide 23 mmol/L (22-30); Chloride 113 mmol/L (98-107); Glucose 85 mg/dL (74-99); Potassium 5.4 mmol/L (3.5-5.1); Sodium 141 mmol/L (137-145)
[2018-09-20] MEDS: PANTOPRAZOLE 40 MG TABLET PO SCH (06:28)
[2018-09-20] MEDS: LEVOTHYROXINE 50 MCG TAB PO SCH (06:29)
[2018-09-20] MEDS: FERROUS SULFATE 325 MG TAB PO SCH ×3 (06:29→18:22)
[2018-09-20] MEDS: DIVALPROEX 250 MG TABLET.DR PO SCH ×2 (06:29→18:22)
[2018-09-20 07:49] LABS: Anion Gap 5 mmol/L; Blood Urea Nitrogen 28 mg/dL (7-17); Calcium 9.7 mg/dL (8.4-10.2); Carbon Dioxide 24 mmol/L (22-30); Chloride 113 mmol/L (98-107); Glucose 108 mg/dL (74-99); Potassium 5.4 mmol/L (3.5-5.1); Sodium 142 mmol/L (137-145)
[2018-09-20 07:52] LABS: Basophils # (A) 0.1 k/uL (0-0.2); Basophils % (A) 1 %; Eosinophils # (A) 0.6 k/uL (0-0.7); Eosinophils % (A) 7 %; HCT 29.9 % (34.0-46.0); HGB 9.2 gm/dL (11.4-16.0); Hypochromasia Slight; Lymphocytes % (A) 25 %; MCH 31.2 pg (25.0-35.0); MCHC 30.6 g/dL (31.0-37.0); MCV 101.7 fL (80.0-100.0); Macrocytosis Slight; Mean Platelet Volume 10.1; Monocytes # (A) 0.7 k/uL (0-1.0); Monocytes % (A) 9 %; Neutrophils # (A) 4.3 k/uL (1.3-7.7); Neutrophils % (A) 55 %; Platelet Count 149 k/uL (150-450); RBC 2.94 m/uL (3.80-5.40); RDW 14.6 % (11.5-15.5); WBC 7.9 k/uL (3.8-10.6)
[2018-09-20] MEDS: METHENAMINE HIPPURATE 1 GM PO SCH ×2 (08:25→21:31)
[2018-09-20] MEDS: BACLOFEN 10 MG TAB PO SCH ×2 (08:27→21:39)
[2018-09-20] MEDS: amLODIPine 10 MG TAB PO SCH (08:27)
[2018-09-20] MEDS: ASCORBIC ACID 500 MG TAB PO SCH ×2 (08:27→21:39)
[2018-09-20] MEDS: LISINOPRIL 5 MG TAB PO SCH (08:28)
[2018-09-20] MEDS: ENOXAPARIN 40 MG/0.4 ML SYRINGE SQ SCH (08:28)
[2018-09-20] MEDS: SERTRALINE 100 MG TAB PO SCH (08:28)
[2018-09-20] MEDS: FAMOTIDINE 20 MG/2 ML VIAL IV SCH (08:28)
--- NOTE | 2018-09-20 10:39 | P.PN ---
Subjective Progress Note Date: 09/20/18 Principal diagnosis: Altered mental status, probably due to mild delirium/metabolic encephalopathy Patient was sleeping, did wake up and was at baseline. Offers no new complaints . Her tremors have improved. Patient's vitamin B12 level is 832 which is normal. Folate 10.0. Depakote level is pending. EEG is still pending. Her blood tests shows sodium 142, potassium 5.4, BUN/creatinine is 28, creatinine 0.57. WBC 7.9 hemoglobin 9.2 with elevated MCV 101.7 and platelets 149. Patient is receiving Rocephin for UTI. Patient also mentions that she has history of 4 back surgeries in the past. She has left foot drop, which I suspect is chronic from previous back issues. Objective - Vital Signs Vital signs: Vital Signs Temp 98.5 F 09/20/18 08:00 Pulse 78 09/20/18 08:00 Resp 18 09/20/18 08:00 BP 139/79 09/20/18 08:00 Pulse Ox 98 09/20/18 08:00 Intake & Output 09/19/18 09/20/18 09/20/18 18:59 06:59 18:59 Intake Total 600 800 118 Output Total 650 300 Balance -50 500 118 Weight 89.7 kg Intake: Oral 600 800 118 Output: Urine 600 Stool 50 Urine/Stool Mix 300 Other: Voiding Method Diaper Diaper Diaper # Voids 600 # Bowel Movements 200 - Exam On examination patient is an elderly female, in no distress. Her mental status is baseline. She is pleasantly confused from dementia. Cranial nerves are normal. Muscle strength is normal except left foot drop. - Labs CBC & Chem 7: 09/20/18 07:07 09/20/18 07:07 Labs: Abnormal Lab Results - Last 24 Hours (Table) 09/19/18 09/20/18 09/20/18 Range/Units 22:37 07:07 07:07 RBC 2.94 L (3.80-5.40) m/uL Hgb 9.2 L (11.4-16.0) gm/dL Hct 29.9 L (34.0-46.0) % MCV 101.7 H (80.0-100.0) fL MCHC 30.6 L (31.0-37.0) g/dL Plt Count 149 L (150-450) k/uL Potassium 5.4 H 5.4 H (3.5-5.1) mmol/L Chloride 113 H 113 H (98-107) mmol/L BUN 36 H 28 H (7-17) mg/dL Glucose 108 H (74-99) mg/dL Assessment and Plan Assessment: * Altered mental status, probably due to mild delirium/metabolic encephalopathy, probability due to reasons mentioned below. * Acute UTI * Acute renal insufficiency, improving. * Electrolyte imbalance, with hyperkalemia, hypocalcemia, improved. * Tremors, possibly metabolic, possible enhanced from Depakote. No definitive parkinsonism. * Dementia, at least moderate degree. Plan: * Await Depakote level * B12, folate are normal. * Await EEG to rule out any epileptiform activity and evaluate for enc ephalopathy. * Your medical management. Patient on Rocephin for UTI. * Patient's tremors have improved. Tremors possibly related to metabolic encephalopathy versus related to Depakote. May need follow-up in the neurology office, once medically stabilized to rule out parkinsonism. * We will follow clinically.
--- NOTE | 2018-09-20 11:34 | P.PN ---
Subjective This is a pleasant 83 years old male with past medical history of CVA/TIA, GERD, hypertension, memory impairment, osteoarthritis, seizure disorder, hypothyroidism, restless leg syndrome Residents with altered mental status, patient could not provide history and information, she has history of dementia, patient was sent from [facility] for altered mental status. Patient is fully awake and some orientation however she is poor historian, she does not know why she is in the hospital. however she feels generally week. Vitals are stable, patient is afebrile. WBC 12.5 on presentation coming down to 9.4 and elements of hemodilution, hemoglobin 9.5, platelets 145. Potassium 6.4 coming down to 6.0, sodium 148, creatinine 1.4, down to 0.7. Urinalysis is suspicious for infection. Urine drug screen is negative. EKG showing normal sinus rhythm at [address]-T changes.brain CT is showing no acute process. There is no chest x-ray done. Patient was started on ceftriaxone, and given intravenous fluids 09/20/2018 Patient remains fully awake, she is partially oriented, she knows in the hospital. Bouts she does not know the city. She is does not know the date, she knows Mr. Smith As the president of [facility]. She does not know where she is in hospital. She still complaining of from dysuria and suprapubic tenderness, patient remains on ceftriaxone for her UTI. Neurology input is appreciated, requesting EEG, checking B12, folate and Depakote level. Vitals are stable. CBC is unremarkable, potassium is coming down, 5.4 today, compared to 6.0 yesterday. Creatinine 0.5. Urine culture still pending My review of systems CONSTITUTIONAL: No fever, no malaise, no fatigue. HEENT: No recent visual problems or hearing problems. Denied any sore throat. CARDIOVASCULAR: No orthopnea, PND, no palpitations, no syncope. PULMONARY: No shortness of breath, no cough, no hemoptysis. GASTROINTESTINAL: No diarrhea, no nausea, no vomiting, no abdominal pain. Normoactive bowel sounds. NEUROLOGICAL: No headaches, no weakness, no numbness. HEMATOLOGICAL: Denies any bleeding or petechiae. GENITOURINARY: Denies any burning micturition, frequency, or urgency. MUSCULOSKELETAL/RHEUMATOLOGICAL: Denies any joint pain, swelling, or any muscle pain. ENDOCRINE: Denies any polyuria or polydipsia. Medication: Tylenol, albuterol, Norvasc, vitamin C, aspirin, baclofen, Rocephin, vitamin D, Depakote, Lovenox, Pepcid, ferrous sulfate, Synthroid, lisinopril, Protonix, Requip, sertraline. Objective - Vital Signs Vital signs: Vital Signs Temp 98.5 F 09/20/18 08:00 Pulse 78 09/20/18 08:00 Resp 18 09/20/18 08:00 BP 139/79 09/20/18 08:00 Pulse Ox 98 09/20/18 08:00 Intake & Output 09/19/18 09/20/18 09/20/18 18:59 06:59 18:59 Intake Total 600 800 118 Output Total 650 300 Balance -50 500 118 Weight 89.7 kg Intake: Oral 600 800 118 Output: Urine 600 Stool 50 Urine/Stool Mix 300 Other: Voiding Method Diaper Diaper Diaper # Voids 600 # Bowel Movements 200 - Exam -GENERAL: The patient is alert and oriented x2-3 partial, since admission, not in any acute distress. Generally weak HEENT: Pupils are round and equally reacting to light. EOMI. No scleral icterus. No conjunctival pallor. Normocephalic, atraumatic. No pharyngeal erythema. No thyromegaly. CARDIOVASCULAR: S1 and S2 present. No murmurs, rubs, or gallops. PULMONARY: Chest is clear to auscultation, no wheezing or crackles. ABDOMEN: Soft, nontender, nondistended, normoactive bowel sounds. No palpable organomegaly. MUSCULOSKELETAL: No joint swelling or deformity. EXTREMITIES: No cyanosis, clubbing, or pedal edema. NEUROLOGICAL: Gross neurological examination did not reveal any focal deficits. SKIN: No rashes. - Labs CBC & Chem 7: 09/20/18 07:07 09/20/18 07:07 Labs: Abnormal Lab Results - Last 24 Hours (Table) 09/19/18 09/20/18 09/20/18 Range/Units 22:37 07:07 07:07 RBC 2.94 L (3.80-5.40) m/uL Hgb 9.2 L (11.4-16.0) gm/dL Hct 29.9 L (34.0-46.0) % MCV 101.7 H (80.0-100.0) fL MCHC 30.6 L (31.0-37.0) g/dL Plt Count 149 L (150-450) k/uL Potassium 5.4 H 5.4 H (3.5-5.1) mmol/L Chloride 113 H 113 H (98-107) mmol/L BUN 36 H 28 H (7-17) mg/dL Glucose 108 H (74-99) mg/dL Assessment and Plan Assessment: Altered mental status, mostly metabolic encephalopathy Urinary tract infection Acute kidney injury, resolved Hyperkalemia Hypernatremia History of CVA with residual right hemiparesis Tremor History of GERD Essential hypertension History of memory impairment History of osteoarthritis History of seizure disorder Hypothyroidism Procedures leg syndrome Plan: This is a pleasant 83 years old female who presents with altered mental status, we'll ask for neurological evaluation. We'll do a swallow evaluation continue with IV hydration, monitor potassium level, continue with antibiotics and follow-up urine culture results. Labs and medication were reviewed.. Continue same treatment. Continue with symptomatic treatment. Resume home medication. Monitor lytes and vitals. DVT and GI prophylaxis. Further recommendations of the clinical course of the patient DVT prophylaxis: Subcutaneous Lovenox GI Prophylaxis: Pepcid PT/OT: Pending Prognosis is guarded
[2018-09-20] MEDS: ASPIRIN 81 MG PO SCH (21:39)
[2018-09-20] MEDS: MELATONIN 5 MG TABLET PO SCH (21:39)
[2018-09-21] MEDS ORDERED: FLUCONAZOLE 150 MG TAB PO STA (02:33)
[2018-09-21] MEDS ORDERED: FLUCONAZOLE 100 MG TAB PO STA (02:43)
[2018-09-21] MEDS: LEVOTHYROXINE 50 MCG TAB PO SCH (06:03)
[2018-09-21] MEDS: FERROUS SULFATE 325 MG TAB PO SCH ×3 (06:03→20:06)
[2018-09-21] MEDS: DIVALPROEX 250 MG TABLET.DR PO SCH ×2 (06:03→17:20)
[2018-09-21 08:18] LABS: Anion Gap 5 mmol/L; Blood Urea Nitrogen 21 mg/dL (7-17); Calcium 9.9 mg/dL (8.4-10.2); Carbon Dioxide 27 mmol/L (22-30); Chloride 110 mmol/L (98-107); Glucose 91 mg/dL (74-99); Sodium 142 mmol/L (137-145)
[2018-09-21] MEDS: ACETAMINOPHEN TAB 325 MG TAB PO PRN (08:30)
[2018-09-21] MEDS: ASCORBIC ACID 500 MG TAB PO SCH ×2 (08:32→20:06)
[2018-09-21] MEDS: FLUCONAZOLE 100 MG TAB PO SCH (08:32)
[2018-09-21] MEDS: SERTRALINE 100 MG TAB PO SCH (08:33)
[2018-09-21] MEDS: ENOXAPARIN 40 MG/0.4 ML SYRINGE SQ SCH (08:33)
[2018-09-21] MEDS: LISINOPRIL 5 MG TAB PO SCH (08:33)
[2018-09-21] MEDS: amLODIPine 10 MG TAB PO SCH (08:33)
[2018-09-21] MEDS: BACLOFEN 10 MG TAB PO SCH ×2 (08:33→20:06)
[2018-09-21] MEDS: PANTOPRAZOLE 40 MG TABLET PO SCH (08:33)
[2018-09-21] MEDS: METHENAMINE HIPPURATE 1 GM PO SCH ×2 (10:12→19:27)
--- NOTE | 2018-09-21 15:09 | P.PN ---
Subjective Progress Note Date: 09/21/18 Principal diagnosis: Altered mental status, probably due to mild delirium/metabolic encephalopathy Patient was awake today. Patient continues to be pleasantly confused. Offers n o new complaints. Wants to go home. Her tremors at rest has been persistent. The tremors are pill rolling, moderate on the right, mild on the left. Patient's vitamin B12 level is 832 which is normal. Folate 10.0. Depakote level is 51.8, which is therapeutic. EEG shows frontal intermittent rhythmic delta activity, suggestive of encephalopathy. Her blood tests shows sodium 142, potassium 5.4, BUN/creatinine is 28, creatinine 0.57. WBC 7.9 hemoglobin 9.2 with elevated MCV 101.7 and platelets 149. Patient is receiving Rocephin for UTI. Patient also mentions that she has history of 4 back surgeries in the past. She has left foot drop, which I suspect is chronic from previous back issues. Patient also states that she has history of seizures many years ago. Her history is somewhat questionable regarding reliability. Patient says that she lives with "many others", perhaps a [facility]. Objective - Vital Signs Vital signs: Vital Signs Temp 98.3 F 09/21/18 08:26 Pulse 82 09/21/18 08:26 Resp 20 09/21/18 08:26 BP 151/67 09/21/18 08:26 Pulse Ox 95 09/21/18 08:26 Intake & Output 09/20/18 09/21/18 09/21/18 18:59 06:59 18:59 Intake Total 168 50 540 Output Total 750 450 Balance 168 -700 90 Intake: IV 50 cefTRIAXone 1 gm In 50 Sodium Chloride 0.9% 50 ml @ 100 mls/hr IVPB Q24HR [facility] Rx#:[id number] Oral 118 50 540 Output: Urine 750 250 Stool 200 Other: Voiding Method Diaper - Exam On examination patient is an elderly female, in no distress. Her mental status is baseline. She is pleasantly confused from dementia. Cranial nerves are normal. Muscle strength is normal except left foot drop. Patient has at least moderate tremors at rest on the right, but mild on the left. - Labs CBC & Chem 7: 09/20/18 07:07 09/21/18 07:37 Labs: Abnormal Lab Results - Last 24 Hours (Table) 09/21/18 Range/Units 07:37 Chloride 110 H (98-107) mmol/L BUN 21 H (7-17) mg/dL Microbiology - Last 24 Hours (Table) 09/18/18 17:56 Urine Culture - Final Urine,Catheterized Nicole sp,not albicans/galbr Assessment and Plan Assessment: * Altered mental status, probably due to mild delirium/metabolic encephalopathy, probability due to reasons mentioned below. * Acute UTI * Acute renal insufficiency, improving. * Electrolyte imbalance, with hyperkalemia, hypocalcemia, improved. * Tremors, possibly parkinsonian. Tremors possible enhanced from Depakote and encephalopathy. * Dementia, at least moderate degree. Plan: * Depakote level therapeutic 51.8. Continue Depakote at current dose. * B12, folate are normal. * EEG showed frontal intermittent rhythmic delta activity, suggestive of encephalopathy. No definite evidence epileptiform activity seen. * Your medical management. Patient on Rocephin for UTI. * Patient's tremors have persisted. May consider starting Sinemet 25/100 one tablet twice a day for parkinsonism. * We will follow clinically.
--- NOTE | 2018-09-21 18:24 | P.PN ---
Subjective This is a pleasant 83 years old male with past medical history of CVA/TIA, GERD, hypertension, memory impairment, osteoarthritis, seizure disorder, hypothyroidism, restless leg syndrome Residents with altered mental status, patient could not provide history and information, she has history of dementia, patient was sent from [facility] for altered mental status. Patient is fully awake and some orientation however she is poor historian, she does not know why she is in the hospital. however she feels generally week. Vitals are stable, patient is afebrile. WBC 12.5 on presentation coming down to 9.4 and elements of hemodilution, hemoglobin 9.5, platelets 145. Potassium 6.4 coming down to 6.0, sodium 148, creatinine 1.4, down to 0.7. Urinalysis is suspicious for infection. Urine drug screen is negative. EKG showing normal sinus rhythm at [address]-T changes.brain CT is showing no acute process. There is no chest x-ray done. Patient was started on ceftriaxone, and given intravenous fluids 09/20/2018 Patient remains fully awake, she is partially oriented, she knows in the hospital. Bouts she does not know the city. She is does not know the date, she knows Mr. Smith As the president of [facility]. She does not know where she is in hospital. She still complaining of from dysuria and suprapubic tenderness, patient remains on ceftriaxone for her UTI. Neurology input is appreciated, requesting EEG, checking B12, folate and Depakote level. Vitals are stable. CBC is unremarkable, potassium is coming down, 5.4 today, compared to 6.0 yesterday. Creatinine 0.5. Urine culture still pending 09/21/2018 Patient looks a little bit disoriented although she is fully awake. Looks like that's close to her baseline. However she is improving regarding her dysuria. No more suprapubic tenderness. She remains hemodynamically stable. Urine culture is growing Nicole not albicans. No more leukocytosis. And her creatinine within normal limits. EKG suggestive of encephalopathy. And her Depakote level is therapeutic. Neurology follow-up is appreciated. May consider Sinemet Objective - Vital Signs Vital signs: Vital Signs Temp 98.5 F 09/21/18 14:28 Pulse 81 09/21/18 14:28 Resp 16 09/21/18 14:28 BP 127/72 09/21/18 14:28 Pulse Ox 96 09/21/18 14:28 Intake & Output 09/20/18 09/21/18 09/21/18 18:59 06:59 18:59 Intake Total 168 50 940 Output Total 750 950 Balance 168 -700 -10 Intake: IV 50 cefTRIAXone 1 gm In 50 Sodium Chloride 0.9% 50 ml @ 100 mls/hr IVPB Q24HR [facility] Rx#:[id number] Oral 118 50 940 Output: Urine 750 550 Stool 400 Other: Voiding Method Diaper Diaper - Exam -GENERAL: The patient is alert and oriented x2-3 partial, since admission, not in any acute distress. Generally weak HEENT: Pupils are round and equally reacting to light. EOMI. No scleral icterus. No conjunctival pallor. Normocephalic, atraumatic. No pharyngeal erythema. No thyromegaly. CARDIOVASCULAR: S1 and S2 present. No murmurs, rubs, or gallops. PULMONARY: Chest is clear to auscultation, no wheezing or crackles. ABDOMEN: Soft, nontender, nondistended, normoactive bowel sounds. No palpable organomegaly. MUSCULOSKELETAL: No joint swelling or deformity. EXTREMITIES: No cyanosis, clubbing, or pedal edema. NEUROLOGICAL: Gross neurological examination did not reveal any focal deficits. SKIN: No rashes. - Labs CBC & Chem 7: 09/20/18 07:07 09/21/18 07:37 Labs: Abnormal Lab Results - Last 24 Hours (Table) 09/21/18 Range/Units 07:37 Chloride 110 H (98-107) mmol/L BUN 21 H (7-17) mg/dL Microbiology - Last 24 Hours (Table) 09/18/18 17:56 Urine Culture - Final Urine,Catheterized Nicole sp,not albicans/galbr Assessment and Plan Assessment: Altered mental status, mostly metabolic encephalopathy Urinary tract infection Acute kidney injury, resolved Hyperkalemia Hypernatremia History of CVA with residual right hemiparesis Tremor History of GERD Essential hypertension History of memory impairment History of osteoarthritis History of seizure disorder Hypothyroidism Procedures leg syndrome Plan: This is a pleasant 83 years old female who presents with altered mental status, we'll ask for neurological evaluation. We'll do a swallow evaluation continue with IV hydration, monitor potassium level, continue with antibiotics and follow-up urine culture results. Labs and medication were reviewed.. Continue same treatment. Continue with symptomatic treatment. Resume home medication. Monitor lytes and vitals. DVT and GI prophylaxis. Further recommendations of the clinical course of the patient DVT prophylaxis: Subcutaneous Lovenox GI Prophylaxis: Pepcid PT/OT: Pending Prognosis is guarded
[2018-09-21] MEDS: MELATONIN 5 MG TABLET PO SCH (20:06)
[2018-09-21] MEDS: ASPIRIN 81 MG PO SCH (20:06)
[2018-09-22] MEDS: LEVOTHYROXINE 50 MCG TAB PO SCH (05:29)
[2018-09-22] MEDS: ACETAMINOPHEN TAB 325 MG TAB PO PRN ×2 (07:58→16:55)
[2018-09-22] MEDS: amLODIPine 10 MG TAB PO SCH (07:59)
[2018-09-22] MEDS: BACLOFEN 10 MG TAB PO SCH ×2 (07:59→21:54)
[2018-09-22] MEDS: SERTRALINE 100 MG TAB PO SCH (07:59)
[2018-09-22] MEDS: DIVALPROEX 250 MG TABLET.DR PO SCH ×2 (08:00→16:32)
[2018-09-22] MEDS: PANTOPRAZOLE 40 MG TABLET PO SCH (08:00)
[2018-09-22] MEDS: FERROUS SULFATE 325 MG TAB PO SCH ×3 (08:00→21:54)
[2018-09-22] MEDS: LISINOPRIL 5 MG TAB PO SCH (08:00)
[2018-09-22] MEDS: ASCORBIC ACID 500 MG TAB PO SCH ×2 (08:00→21:53)
[2018-09-22] MEDS: FLUCONAZOLE 100 MG TAB PO SCH (08:00)
[2018-09-22] MEDS: ENOXAPARIN 40 MG/0.4 ML SYRINGE SQ SCH (08:00)
[2018-09-22 08:01] LABS: Anion Gap 3 mmol/L; Blood Urea Nitrogen 18 mg/dL (7-17); Calcium 10.1 mg/dL (8.4-10.2); Carbon Dioxide 28 mmol/L (22-30); Chloride 111 mmol/L (98-107); Glucose 94 mg/dL (74-99); Potassium 5.2 mmol/L (3.5-5.1); Sodium 142 mmol/L (137-145)
[2018-09-22] MEDS: METHENAMINE HIPPURATE 1 GM PO SCH ×2 (10:33→20:12)
--- NOTE | 2018-09-22 15:13 | P.PN ---
Subjective Progress Note Date: 09/22/18 Principal diagnosis: Altered mental status, probably due to mild delirium/metabolic encephalopathy Patient was awake today. Patient continues to be pleasantly confused. Offers n o new complaints. Her tremors at rest has been persistent. The tremors are pill rolling, moderate on the right, mild on the left. Patient's vitamin B12 level is 832 which is normal. Folate 10.0. Depakote level is 51.8, which is therapeutic. EEG shows frontal intermittent rhythmic delta activity, suggestive of encephalopathy. Her blood tests shows sodium 142, potassium 5.4, BUN/creatinine is 28, creatinine 0.57. WBC 7.9 hemoglobin 9.2 with elevated MCV 101.7 and platelets 149. Patient is receiving Rocephin for UTI. Patient also mentions that she has history of 4 back surgeries in the past. She has left foot drop, which I suspect is chronic from previous back issues. Patient also states that she has history of seizures many years ago. Her history is somewhat questionable regarding reliability. Patient says that she lives with "many others", perhaps a senior living. Objective - Vital Signs Vital signs: Vital Signs Temp 98.9 F 09/22/18 14:50 Pulse 79 09/22/18 14:50 Resp 14 09/22/18 14:50 BP 144/82 09/22/18 14:50 Pulse Ox 93 L 09/22/18 14:50 Intake & Output 09/21/18 09/22/18 09/22/18 18:59 06:59 18:59 Intake Total 940 380 118 Output Total 950 625 Balance -10 -245 118 Intake: Oral 940 380 118 Output: Urine 550 175 Stool 400 450 Other: Voiding Method Diaper Diaper # Voids 1 - Exam On examination patient is an elderly female, in no distress. Her mental status is baseline. She is pleasantly confused from dementia. Cranial nerves are normal. Muscle strength is normal except left foot drop. Patient has at least moderate tremors at rest on the right, but mild on the left. - Labs CBC & Chem 7: 09/20/18 07:07 09/22/18 07:04 Labs: Abnormal Lab Results - Last 24 Hours (Table) 09/22/18 Range/Units 07:04 Potassium 5.2 H (3.5-5.1) mmol/L Chloride 111 H (98-107) mmol/L BUN 18 H (7-17) mg/dL Assessment and Plan Assessment: * Altered mental status, probably due to mild delirium/metabolic encephalopathy, probability due to reasons mentioned below. * Acute UTI * Acute renal insufficiency, improving. * Electrolyte imbalance, with hyperkalemia, hypocalcemia, improved. * Tremors, possibly parkinsonian. Tremors possible enhanced from Depakote and encephalopathy. * Dementia, at least moderate degree. Plan: * Depakote level therapeutic 51.8. Continue Depakote at current dose. * B12, folate are normal. * EEG showed frontal intermittent rhythmic delta activity, suggestive of encephalopathy. No definite evidence epileptiform activity seen. * Your medical management. Patient on Rocephin for UTI. * Patient's tremors have persisted. Will optimize dose of Requip to 0.5 mg 3 times a day for Parkinson's and possible restless legs. * We will follow clinically.
[2018-09-22] MEDS ORDERED: SODIUM POLYSTYRENE SULFONATE 15 GM/60 ML BOTTLE PO STA (15:51)
--- NOTE | 2018-09-22 15:53 | P.PN ---
Subjective This is a pleasant 83 years old male with past medical history of CVA/TIA, GERD, hypertension, memory impairment, osteoarthritis, seizure disorder, hypothyroidism, restless leg syndrome Residents with altered mental status, patient could not provide history and information, she has history of dementia, patient was sent from [facility] for altered mental status. Patient is fully awake and some orientation however she is poor historian, she does not know why she is in the hospital. however she feels generally week. Vitals are stable, patient is afebrile. WBC 12.5 on presentation coming down to 9.4 and elements of hemodilution, hemoglobin 9.5, platelets 145. Potassium 6.4 coming down to 6.0, sodium 148, creatinine 1.4, down to 0.7. Urinalysis is suspicious for infection. Urine drug screen is negative. EKG showing normal sinus rhythm at [address]-T changes.brain CT is showing no acute process. There is no chest x-ray done. Patient was started on ceftriaxone, and given intravenous fluids 09/20/2018 Patient remains fully awake, she is partially oriented, she knows in the hospital. Bouts she does not know the city. She is does not know the date, she knows Mr. Smith As the president of [facility]. She does not know where she is in hospital. She still complaining of from dysuria and suprapubic tenderness, patient remains on ceftriaxone for her UTI. Neurology input is appreciated, requesting EEG, checking B12, folate and Depakote level. Vitals are stable. CBC is unremarkable, potassium is coming down, 5.4 today, compared to 6.0 yesterday. Creatinine 0.5. Urine culture still pending 09/21/2018 Patient looks a little bit disoriented although she is fully awake. Looks like that's close to her baseline. However she is improving regarding her dysuria. No more suprapubic tenderness. She remains hemodynamically stable. Urine culture is growing Nicole not albicans. No more leukocytosis. And her creatinine within normal limits. EKG suggestive of encephalopathy. And her Depakote level is therapeutic. Neurology follow-up is appreciated. May consider Sinemet 09/22/2018 Patient today looks better. Her mentation is improved. She knows where she is at, and she knows why in the hospital just progressed compared to previous days. She remains on ceftriaxone and fluconazole. Urine culture is growing Nicole albicans. Her potassium is 5.2. We will give her 1 dose of Kayexalate. Neurol ogy follow-up and recommendation is appreciated and they adjusted her Requip for her Parkinson and possible restless legs. Physical therapy evaluation recommended ECF upon discharge for inpatient rehab. Objective - Vital Signs Vital signs: Vital Signs Temp 98.9 F 09/22/18 14:50 Pulse 79 09/22/18 14:50 Resp 14 09/22/18 14:50 BP 144/82 09/22/18 14:50 Pulse Ox 93 L 09/22/18 14:50 Intake & Output 09/21/18 09/22/18 09/22/18 18:59 06:59 18:59 Intake Total 940 380 118 Output Total 950 625 Balance -10 -245 118 Intake: Oral 940 380 118 Output: Urine 550 175 Stool 400 450 Other: Voiding Method Diaper Diaper # Voids 1 - Exam -GENERAL: The patient is alert and oriented x2-3 partial, since admission, not in any acute distress. Generally weak HEENT: Pupils are round and equally reacting to light. EOMI. No scleral icterus. No conjunctival pallor. Normocephalic, atraumatic. No pharyngeal erythema. No thyromegaly. CARDIOVASCULAR: S1 and S2 present. No murmurs, rubs, or gallops. PULMONARY: Chest is clear to auscultation, no wheezing or crackles. ABDOMEN: Soft, nontender, nondistended, normoactive bowel sounds. No palpable organomegaly. MUSCULOSKELETAL: No joint swelling or deformity. EXTREMITIES: No cyanosis, clubbing, or pedal edema. NEUROLOGICAL: Gross neurological examination did not reveal any focal deficits. SKIN: No rashes. - Labs CBC & Chem 7: 09/20/18 07:07 09/22/18 07:04 Labs: Abnormal Lab Results - Last 24 Hours (Table) 09/22/18 Range/Units 07:04 Potassium 5.2 H (3.5-5.1) mmol/L Chloride 111 H (98-107) mmol/L BUN 18 H (7-17) mg/dL Assessment and Plan Assessment: Altered mental status, mostly metabolic encephalopathy Urinary tract infection Acute kidney injury, resolved Hyperkalemia Hypernatremia History of CVA with residual right hemiparesis Tremor History of GERD Essential hypertension History of memory impairment History of osteoarthritis History of seizure disorder Hypothyroidism Procedures leg syndrome Plan: This is a pleasant 83 years old female who presents with altered mental status, we'll ask for neurological evaluation. We'll do a swallow evaluation continue with IV hydration, monitor potassium level, continue with antibiotics and follow-up urine culture results. Labs and medication were reviewed.. Continue same treatment. Continue with symptomatic treatment. Resume home medication. Monitor lytes and vitals. DVT and GI prophylaxis. Further recommendations of the clinical course of the patient DVT prophylaxis: Subcutaneous Lovenox GI Prophylaxis: Pepcid PT/OT: Pending Prognosis is guarded
[2018-09-22 15:58] LABS: Basophils # (A) 0.1 k/uL (0-0.2); Basophils % (A) 1 %; Eosinophils # (A) 0.5 k/uL (0-0.7); Eosinophils % (A) 6 %; HCT 31.2 % (34.0-46.0); HGB 9.9 gm/dL (11.4-16.0); Hypochromasia Slight; Lymphocytes # (A) 2.2 k/uL (1.0-4.8); Lymphocytes % (A) 26 %; MCH 32.1 pg (25.0-35.0); MCHC 31.7 g/dL (31.0-37.0); MCV 101.4 fL (80.0-100.0); Macrocytosis Slight; Mean Platelet Volume 11.4; Monocytes # (A) 0.9 k/uL (0-1.0); Monocytes % (A) 11 %; Neutrophils # (A) 4.5 k/uL (1.3-7.7); Neutrophils % (A) 54 %; Platelet Count 161 k/uL (150-450); RBC 3.08 m/uL (3.80-5.40); RDW 14.2 % (11.5-15.5); WBC 8.3 k/uL (3.8-10.6)
[2018-09-22 20:47] VITALS: RESP 18
[2018-09-22] MEDS: ASPIRIN 81 MG PO SCH (21:53)
[2018-09-22] MEDS: MELATONIN 5 MG TABLET PO SCH (21:54)
[2018-09-23] MEDS: LEVOTHYROXINE 50 MCG TAB PO SCH (05:58)
[2018-09-23] MEDS: FERROUS SULFATE 325 MG TAB PO SCH ×2 (05:58→12:33)
[2018-09-23] MEDS: ENOXAPARIN 40 MG/0.4 ML SYRINGE SQ SCH (08:12)
[2018-09-23] MEDS: ASCORBIC ACID 500 MG TAB PO SCH (08:13)
[2018-09-23] MEDS: FLUCONAZOLE 100 MG TAB PO SCH (08:13)
[2018-09-23] MEDS: LISINOPRIL 5 MG TAB PO SCH (08:13)
[2018-09-23] MEDS: amLODIPine 10 MG TAB PO SCH (08:13)
[2018-09-23] MEDS: BACLOFEN 10 MG TAB PO SCH (08:13)
[2018-09-23] MEDS: SERTRALINE 100 MG TAB PO SCH (08:13)
[2018-09-23] MEDS: METHENAMINE HIPPURATE 1 GM PO SCH (08:14)
[2018-09-23] MEDS: PANTOPRAZOLE 40 MG TABLET PO SCH (08:15)
[2018-09-23] MEDS: DIVALPROEX 250 MG TABLET.DR PO SCH ×2 (08:15→15:54)
[2018-09-23 09:37] LABS: Anion Gap 6 mmol/L; Blood Urea Nitrogen 15 mg/dL (7-17); Calcium 10.2 mg/dL (8.4-10.2); Carbon Dioxide 29 mmol/L (22-30); Chloride 105 mmol/L (98-107); Glucose 117 mg/dL (74-99); Potassium 4.4 mmol/L (3.5-5.1); Sodium 140 mmol/L (137-145)
[2018-09-23] MEDS ORDERED: CHOLECALCIFEROL 1,000 UNIT TAB PO SCH (12:00)
--- NOTE | 2018-09-23 12:05 | EEG ---
ELECTROENCEPHALOGRAM REPORT DATE OF STUDY: 09/20/2018 HISTORY: 83 -year-old female with history of dementia, admitted with possible syncopal spell. Study was performed to rule out any seizure activity. DESCRIPTION OF PROCEDURE: A routine 21 channel awake digital EEG recording was accomplished utilizing the 1020 international system with bipolar and referential montages. The background rhythm consists of well developed, well regulated, moderate amplitude activity in 8-9 Hz alpha. Background is posterior dominant and seems to be reactive to eye opening and closing. Photic driving response was not seen on photic stimulation. Intermittent bilaterally symmetric frontally predominant rhythmic delta activity was seen. No definitive epileptiform activity was seen. Different stages of sleep were not seen. IMPRESSION: This is an abnormal EEG due to presence of frontal intermittent rhythm delta activity. This is suggestive of intermittent generalized cerebral dysfunction as can be seen in encephalopathy of various causes. Clinical correlation is recommended. No definitive epileptiform activity was seen. MMODL / IJN: [id number] / MTDD
--- NOTE | 2018-09-23 12:55 | P.PN ---
Subjective Progress Note Date: 09/23/18 Principal diagnosis: Altered mental status, probably due to mild delirium/metabolic encephalopathy Patient was awake today. Patient's dose of Requip was increased to 0.5 mg 3 benedict es a day yesterday. Patient is tolerating it well. Her tremors at rest have improved, but continues to have significant postural tremors, right side worse than left. Patient denies any side effects of Requip. Patient's vitamin B12 level is 832 which is normal. Folate 10.0. Depakote level is 51.8, which is therapeutic. EEG shows frontal intermittent rhythmic delta activity, suggestive of encephalopathy. Her blood tests shows sodium 142, potassium 5.4, BUN/creatinine is 28, creatinine 0.57. WBC 7.9 hemoglobin 9.2 with elevated MCV 101.7 and platelets 149. Patient is receiving Rocephin for UTI. Patient also mentions that she has history of 4 back surgeries in the past. She has left foot drop, which I suspect is chronic from previous back issues. Patient also states that she has history of seizures many years ago. Her history is somewhat questionable regarding reliability. Patient says that she lives with "many others", perhaps a correction. Objective - Vital Signs Vital signs: Vital Signs Temp 98.9 F 09/23/18 07:33 Pulse 78 09/23/18 07:33 Resp 18 09/23/18 01:10 BP 169/84 09/23/18 07:33 Pulse Ox 99 09/23/18 07:33 Intake & Output 09/22/18 09/23/18 09/23/18 18:59 06:59 18:59 Intake Total 754 280 50 Output Total 300 1050 Balance 454 -770 50 Intake: IV 50 cefTRIAXone 1 gm In 50 Sodium Chloride 0.9% 50 ml @ 100 mls/hr IVPB Q24HR [facility] Rx#:[id number] Oral 754 280 Output: Urine 500 Stool 300 550 Other: Voiding Method Diaper Diaper - Exam On examination patient is an elderly female, in no distress. Her mental status is baseline. Cranial nerves are normal. Muscle strength is normal except left foot drop. Patient today has mild tremors at rest on the right, but at least moderate tremors with posture and intention. Tone is mildly increased bilaterally. - Labs CBC & Chem 7: 09/22/18 07:04 09/23/18 08:57 Labs: Abnormal Lab Results - Last 24 Hours (Table) 09/22/18 09/23/18 Range/Units 07:04 08:57 RBC 3.08 L (3.80-5.40) m/uL Hgb 9.9 L (11.4-16.0) gm/dL Hct 31.2 L (34.0-46.0) % MCV 101.4 H (80.0-100.0) fL Glucose 117 H (74-99) mg/dL Assessment and Plan Assessment: * Altered mental status, probably due to mild delirium/metabolic encephalopathy, probability due to reasons mentioned below. Improved. * Acute UTI * Acute renal insufficiency, improving. * Electrolyte imbalance, with hyperkalemia, hypocalcemia, improved. * Tremors, possibly parkinsonian. Tremors possible enhanced from Depakote and encephalopathy. * Dementia, at least moderate degree. Plan: * Depakote level therapeutic 51.8. Continue Depakote at current dose. * B12, folate are normal. * EEG showed frontal intermittent rhythmic delta activity, suggestive of encephalopathy. No definite evidence epileptiform activity seen. * Your medical management. Patient on Rocephin for UTI. * Patient's tremors have persisted. Continue Requip 0.5 mg 3 times a day for Parkinson's and possible restless legs. In the tremors persist, then may consider beta lisa or Mysoline for postural and intention tremors. Suggest switching from Depakote to another medication, as Depakote may enhance these tremors.
--- NOTE | 2018-09-23 14:13 | P.DS ---
Providers Date of admission: 09/18/18 19:28 Attending physician: Radha Phelps Consults: 09/19/18 09:07 Consult Physician Routine Consulting Provider: Be Sung Consult Reason/Comments: AMS Do you want consulting provider notified?: Yes Primary care physician: Miguel Newton [facility] Course: Diagnoses: Altered mental status, mostly metabolic encephalopathy Urinary tract infection Acute kidney injury, resolved Hyperkalemia Hypernatremia History of CVA with residual right hemiparesis Tremor History of GERD Essential hypertension History of memory impairment History of osteoarthritis History of seizure disorder Hypothyroidism Procedures leg syndrome Hospital course This is a pleasant 83 years old male with past medical history of CVA/TIA, GERD, hypertension, memory impairment, osteoarthritis, seizure disorder, hypothyroidism, restless leg syndrome. He presents with altered mental status secondary to UTI. Urine culture came back positive as for Nicole not albicans. Patient was treated with ceftriaxone. Patient showed interval improvement and her mental status came back to her baseline. Denies other symptoms. Patient has been evaluated by neurologist, I recommended EEG which was showing encephalopathy with no definitive epileptiform activity seen. B12 and folate were normal levels as well as Depakote level was therapeutic at 51.8. Neurologist suggested tenths Requip dose from 0.5 mg daily up to 3 times daily for her Parkinson and possible restless leg. Tremors improved. Patient returned to her baseline Problems and management plan was discussed with the patient and she verbalized understanding and acceptance Patient was found stable to be discharging guarded prognosis however she needs follow-up as an outpatient Gen: patient is a AAOx3, no distress CVS: S1-S2, RRR, no murmur Lungs: B/L CTA, no wheezing Abdomen: soft, no distention, no tenderness, positive bowel sounds Extremity: no leg edema or induration Time spent more than 35 minutes Patient Condition at Discharge: Fair Plan - Discharge Summary New Discharge Prescriptions: New Cefuroxime Axetil [Ceftin] 500 mg PO BID #2 tab Fluconazole [Diflucan] 200 mg PO DAILY 10 Days #7 tab rOPINIRole HCL [Requip] 0.5 mg PO TID tab Continue Melatonin 9 mg PO HS PRN PRN Reason: Insomnia Ipratropium-Albuterol Nebulize [Duoneb 0.5 mg-3 mg/3 ml Soln] 3 ml INHALATION RT-Q4H PRN PRN Reason: Shortness Of Breath Acetaminophen Tab [Tylenol] 650 mg PO Q6H PRN PRN Reason: Fever And/ Or Pain Methenamine Hippurate 1 gm PO BID Ferrous Sulfate [Iron (65 MG Elemental)] 325 mg PO TID@0700,1300,1900 Ascorbic Acid [Vitamin C] 1,000 mg PO BID Sertraline [Zoloft] 100 mg PO DAILY Divalproex [Depakote] 250 mg PO BID@0700,1600 Baclofen [Lioresal] 20 mg PO BID Omeprazole [PriLOSEC] 20 mg PO DAILY Cholecalciferol [Vitamin D3 (25 Mcg = 1000 Iu)] 5,000 unit PO MO Aspirin 81 mg PO HS amLODIPine [Norvasc] 10 mg PO DAILY Lisinopril [Zestril] 5 mg PO DAILY Levothyroxine Sodium [Synthroid] 50 mcg PO DAILY Discontinued rOPINIRole HCL [Requip] 0.25 mg PO DAILY Discharge Medication List Acetaminophen Tab [Tylenol] 650 mg PO Q6H PRN 09/18/18 [History] Ascorbic Acid [Vitamin C] 1,000 mg PO BID 09/18/18 [History] Aspirin 81 mg PO HS 09/18/18 [History] Baclofen [Lioresal] 20 mg PO BID 09/18/18 [History] Cholecalciferol [Vitamin D3 (25 Mcg = 1000 Iu)] 5,000 unit PO MO 09/18/18 [History] Divalproex [Depakote] 250 mg PO BID@0700,1600 09/18/18 [History] Ferrous Sulfate [Iron (65 MG Elemental)] 325 mg PO TID@0700,1300,1900 09/18/18 [History] Ipratropium-Albuterol Nebulize [Duoneb 0.5 mg-3 mg/3 ml Soln] 3 ml INHALATION RT-Q4H PRN 09/18/18 [History] Levothyroxine Sodium [Synthroid] 50 mcg PO DAILY 09/18/18 [History] Lisinopril [Zestril] 5 mg PO DAILY 09/18/18 [History] Melatonin 9 mg PO HS PRN 09/18/18 [History] Methenamine Hippurate 1 gm PO BID 09/18/18 [History] Omeprazole [PriLOSEC] 20 mg PO DAILY 09/18/18 [History] Sertraline [Zoloft] 100 mg PO DAILY 09/18/18 [History] amLODIPine [Norvasc] 10 mg PO DAILY 09/18/18 [History] Cefuroxime Axetil [Ceftin] 500 mg PO BID #2 tab 09/23/18 [Rx] Fluconazole [Diflucan] 200 mg PO DAILY 10 Days #7 tab 09/23/18 [Rx] rOPINIRole HCL [Requip] 0.5 mg PO TID tab 09/23/18 [Rx] Follow up Appointment(s)/Referral(s): Miguel Newton MD [Primary Care Provider] - 1-2 days Activity/Diet/Wound Care/Special Instructions: cardiac diet activity is limited till you see your doctor Discharge Disposition: TRANSFER TO SNF/ECF
[2018-09-23 14:50] VITALS: BP 126/61; PULSE 85; TEMP 98.5
== END 2018-09-23 17:20 | DRG 689 ==
LOC: EC 17:06 → 3SCARD 19:28 → 4SSUR 09-20 13:08
PROVIDERS: ADMIT Hospitalist; ATTEND Hospitalist
DX: N39.0 Urinary tract infection, site not specified (principal); G93.41 Metabolic encephalopathy; N17.9 Acute kidney failure, unspecified; E87.0 Hyperosmolality and hypernatremia; I69.351 Hemiplegia and hemiparesis following cerebral infarction affecting right dominant side; E03.9 Hypothyroidism, unspecified; E83.51 Hypocalcemia; E86.0 Dehydration; E87.5 Hyperkalemia; F41.9 Anxiety disorder, unspecified; G25.81 Restless legs syndrome; I10 Essential (primary) hypertension; K21.9 Gastro-esophageal reflux disease without esophagitis; R41.3 Other amnesia; G20 Parkinson's disease; F02.80 Dementia in other diseases classified elsewhere, unspecified severity, without behavioral disturbance, psychotic disturbance, mood disturbance, and anxiety; G25.1 Drug-induced tremor; T42.6X5A Adverse effect of other antiepileptic and sedative-hypnotic drugs, initial encounter; G40.909 Epilepsy, unspecified, not intractable, without status epilepticus; M21.372 Foot drop, left foot; Z79.82 Long term (current) use of aspirin; Z79.890 Hormone replacement therapy; Z79.899 Other long term (current) drug therapy; Z86.14 Personal history of Methicillin resistant Staphylococcus aureus infection; Z80.1 Family history of malignant neoplasm of trachea, bronchus and lung; Z82.5 Family history of asthma and other chronic lower respiratory diseases
CPT/HCPCS: 36415; 70450; 80048; 80053; 80164; 80306; 81001; 82140; 82607; 82746; 84484; 85025; 85610; 85730; 87086; 93005; 94760; 95816; 96361; 96365; 96375; 99285

== ENCOUNTER 2019-06-07 23:13 | Inpatient (IN) | payer MEDICARE, BC, OTHER ==
[2019-06-07] MEDS ORDERED: SODIUM CHLORIDE 0.9% 1,000 ML IV STA ×2 (23:30)
[2019-06-07] MEDS ORDERED: SODIUM CHLORIDE 0.9% 500 ML 500 ML IV STA (23:30)
[2019-06-07] MEDS ORDERED: IPRATROPIUM-ALBUTEROL 3 ML NEB INHALATION STA (23:30)
--- NOTE | 2019-06-07 23:31 | ED ---
Weakness HPI - General Stated complaint: Altered Mental Time Seen by Provider: 06/07/19 23:23 Source: EMS, RN notes reviewed, old records reviewed Mode of arrival: EMS Limitations: altered mental status - History of Present Illness Initial comments: This is an 84-year-old female presents today for evaluation regards to status not acting appropriately patient is a poor historian history obtained patient's chart as well as EMS and transferring nurse report. Patient unable to give history. MD Complaint: generalized weakness, lack of energy, difficulty walking -: unknown Location: generalized Severity: severe Severity scale (1-10): 9 Quality: numbness Consistency: constant Improves with: none Worsens with: none Context: recent illness, history of similar Associated Symptoms: confusion, loss of appetite, nausea/vomiting - Related Data Home Medications Medication Instructions Recorded Confirmed Acetaminophen Tab [Tylenol] 650 mg PO Q6H PRN 09/18/18 09/18/18 Ascorbic Acid [Vitamin C] 1,000 mg PO BID 09/18/18 09/18/18 Aspirin 81 mg PO HS 09/18/18 09/18/18 Baclofen [Lioresal] 20 mg PO BID 09/18/18 09/18/18 Cholecalciferol [Vitamin D3 (25 5,000 unit PO MO 09/18/18 09/18/18 Mcg = 1000 Iu)] Divalproex [Depakote] 250 mg PO BID@0700,1600 09/18/18 09/18/18 Ferrous Sulfate [Iron (65 MG 325 mg PO TID@0700,1300,1900 09/18/18 09/18/18 Elemental)] Ipratropium-Albuterol Nebulize 3 ml INHALATION RT-Q4H PRN 09/18/18 09/18/18 [Duoneb 0.5 mg-3 mg/3 ml Soln] Levothyroxine Sodium [Synthroid] 50 mcg PO DAILY 09/18/18 09/18/18 Lisinopril [Zestril] 5 mg PO DAILY 09/18/18 09/18/18 Melatonin 9 mg PO HS PRN 09/18/18 09/18/18 Methenamine Hippurate 1 gm PO BID 09/18/18 09/18/18 Omeprazole [PriLOSEC] 20 mg PO DAILY 09/18/18 09/18/18 Sertraline [Zoloft] 100 mg PO DAILY 09/18/18 09/18/18 amLODIPine [Norvasc] 10 mg PO DAILY 09/18/18 09/18/18 Previous Rx's Medication Instructions Recorded Cefuroxime Axetil [Ceftin] 500 mg PO BID #2 tab 09/23/18 Fluconazole [Diflucan] 200 mg PO DAILY 10 Days #7 tab 09/23/18 rOPINIRole HCL [Requip] 0.5 mg PO TID tab 09/23/18 Allergies Allergy/AdvReac Type Severity Reaction Status Date / Time codeine AdvReac Unknown Verified 09/18/18 18:08 Review of Systems ROS Statement: Those systems with pertinent positive or pertinent negative responses have been documented in the HPI. ROS Other: All systems not noted in ROS Statement are negative. Past Medical History Past Medical History: CVA/TIA, GERD/Reflux, Hypertension, Memory Impairment, Osteoarthritis (OA), Seizure Disorder, Thyroid Disorder Additional Past Medical History / Comment(s): restless leg syndrome, hemiplegia, hemiparesis, anemia, History of Any Multi-Drug Resistant Organisms: MRSA Date of last positivie culture/infection: 2008 MDRO Source:: stool (per pt's daughter) Additional Past Surgical History / Comment(s): ileostomy Past Anesthesia/Blood Transfusion Reactions: No Reported Reaction Past Psychological History: Anxiety Smoking Status: Never smoker Past Alcohol Use History: Unable to Obtain Past Drug Use History: Unable to Obtain - Past Family History Father Family Medical History: Cancer Additional Family Medical History / Comment(s): lung CA Mother Family Medical History: Cancer Sister(s) Additional Family Medical History / Comment(s): emphysema General Exam Limitations: altered mental status General appearance: alert, lethargic, in distress Head exam: Present: atraumatic, normocephalic, normal inspection Eye exam: Present: normal appearance, PERRL, EOMI. Absent: scleral icterus, conjunctival injection, periorbital swelling ENT exam: Present: normal exam, mucous membranes dry Neck exam: Present: normal inspection. Absent: tenderness, meningismus, lymphadenopathy Respiratory exam: Present: normal lung sounds bilaterally. Absent: respiratory distress, wheezes, rales, rhonchi, stridor Cardiovascular Exam: Present: regular rate, normal rhythm, normal heart sounds. Absent: systolic murmur, diastolic murmur, rubs, gallop, clicks GI/Abdominal exam: Present: soft, normal bowel sounds. Absent: distended, tenderness, guarding, rebound, rigid Extremities exam: Present: normal inspection, full ROM, normal capillary refill. Absent: tenderness, pedal edema, joint swelling, calf tenderness Back exam: Present: normal inspection Neurological exam: Present: alert, oriented X3, CN II-XII intact Psychiatric exam: Present: normal affect, normal mood Skin exam: Present: warm, dry, intact, normal color. Absent: rash Course Vital Signs 06/07/19 06/07/19 06/07/19 23:15 23:30 23:35 Temperature 97.3 F L Pulse Rate 87 82 84 Respiratory 24 24 20 Rate Blood Pressure 79/38 88/62 78/61 O2 Sat by Pulse 95 Oximetry 06/07/19 06/08/19 06/08/19 23:58 00:02 00:30 Temperature Pulse Rate 81 80 75 Respiratory 20 Rate Blood Pressure 82/48 O2 Sat by Pulse Oximetry 06/08/19 06/08/19 06/08/19 00:45 01:00 01:15 Temperature Pulse Rate 74 81 86 Respiratory 24 24 24 Rate Blood Pressure 78/61 90/55 67/43 O2 Sat by Pulse 95 95 Oximetry 06/08/19 06/08/19 06/08/19 01:30 01:45 02:00 Temperature Pulse Rate 86 86 90 Respiratory 20 24 24 Rate Blood Pressure 88/43 104/54 103/52 O2 Sat by Pulse 95 96 96 Oximetry 06/08/19 06/08/19 06/08/19 02:15 02:50 03:33 Temperature Pulse Rate 70 73 89 Respiratory 22 20 24 Rate Blood Pressure 106/55 107/52 87/51 O2 Sat by Pulse 98 99 96 Oximetry - Reevaluation(s) Reevaluation #1: 06/08/19 00:04 Medical record is reviewed Reevaluation #2: 06/08/19 04:14 Despite significant fluid and aggressive fluid therapy here in the area patient remained significantly altered, hypotensive - Consultations Consultation #1: Spoke with vascular surgery Dr Boris MERA for central line to possible need for access dialysis catheter. Spoke with Dr. Kenyon re renal failure, aware of oliguric arf, patient's hyperkalemia and no urine output Consultation #2: spoke w [facility] who is ok for admission Consultation #3: spoke w Dr Canales who is ok for ICU placement EKG Findings - EKG Comments: EKG Findings:: EKG shows rhythm of 86, QRS 84, QTC 437. EKG shows junctional rhythm of 84, QRS 84 QTc 453 Procedures - Central Line Placement Left IJ Consent Obtained: verbal consent Patient Placed on Monitor/Pulse Ox: Yes MD Prep: mask, gown, gloves Central Line Prep: Chlorhexidine scrub, sterile drapes applied Ultrasound Used for Placement: Yes Central Line Lumen Inserted: triple Bloods Obtained for Lab: No Central Line Position: good blood return Dressing Applied: Tegaderm Post Procedure X-Ray: other (no change) Patient Tolerated Procedure: well Complications: none, other (unable to pass guidewire) Right IJ Consent Obtained: emergent situation Patient Placed on Monitor/Pulse Ox: Yes Prep: mask, gown, gloves Central Line Prep: Chlorhexidine scrub Ultrasound Used for Placement: Yes Central Line Lumen Inserted: triple Bloods Obtained for Lab: No Central Line Position: good blood return, all ports aspirated, flushed, capped, sutured in place with 3-0 nylon Dressing Applied: Tegaderm Patient Tolerated Procedure: well Complications: none Medical Decision Making - Medical Decision Making 84 female to the ER for evaluation patient coming in under altered mental status. Patient is arousable and able to respond to commands at times thro ughout ER stay. Patient given sedation here in the ER for central line unable to achieve central line placement, patient will be admitted to the ICU will need to undergo possible kidney stone procedure, continued antibiotics, hemodynamic monitoring, possible dialysis. Patient will go to ICU, central line placed a right IJ here in the ER, patient started on Levophed and placed into the ICU - Lab Data Result diagrams: 06/07/19 23:31 06/07/19 23:31 Lab Results 06/07/19 06/07/19 06/07/19 Range/Units 23:31 23:31 23:31 WBC 14.4 H (3.8-10.6) k/uL RBC 3.75 L (3.80-5.40) m/uL Hgb 11.9 (11.4-16.0) gm/dL Hct 40.0 (34.0-46.0) % MCV 106.5 H (80.0-100.0) fL MCH 31.7 (25.0-35.0) pg MCHC 29.7 L (31.0-37.0) g/dL RDW 13.4 (11.5-15.5) % Plt Count 192 (150-450) k/uL Neutrophils % 69 % Lymphocytes % 17 % Monocytes % 8 % Eosinophils % 2 % Basophils % 1 % Neutrophils # 9.9 H (1.3-7.7) k/uL Lymphocytes # 2.4 (1.0-4.8) k/uL Monocytes # 1.2 H (0-1.0) k/uL Eosinophils # 0.3 (0-0.7) k/uL Basophils # 0.2 (0-0.2) k/uL Manual Slide Review Performed Large Platelets Present Hypochromasia Marked Macrocytosis Moderate PT (9.0-12.0) sec INR (<1.2) APTT (22.0-30.0) sec Sodium 138 (137-145) mmol/L Potassium 7.3 H* (3.5-5.1) mmol/L Chloride 111 H (98-107) mmol/L Carbon Dioxide 13 L (22-30) mmol/L Anion Gap 14 mmol/L BUN 61 H (7-17) mg/dL Creatinine 3.77 H (0.52-1.04) mg/dL Est GFR (CKD-EPI)AfAm 12 (>60 ml/min/1.73 sqM) Est GFR (CKD-EPI)NonAf 10 (>60 ml/min/1.73 sqM) Glucose 109 H (74-99) mg/dL Lactic Ac Sepsis Rflx Plasma Lactic Acid Flo 2.4 H* (0.7-2.0) mmol/L Calcium 9.4 (8.4-10.2) mg/dL Phosphorus 9.8 H* (2.5-4.5) mg/dL Magnesium 2.3 (1.6-2.3) mg/dL Total Bilirubin 0.6 (0.2-1.3) mg/dL AST 23 (14-36) U/L ALT 14 (4-34) U/L Alkaline Phosphatase 123 (38-126) U/L Creatine Kinase 33 (30-135) U/L Troponin I (0.000-0.034) ng/mL NT-Pro-B Natriuret Pep pg/mL Total Protein 9.5 H (6.3-8.2) g/dL Albumin 4.2 (3.5-5.0) g/dL TSH 1.680 (0.465-4.680) mIU/L Urine Color Urine Appearance (Clear) Urine pH (5.0-8.0) Ur Specific [place] (1.001-1.035) Urine Protein (Negative) Urine Glucose (UA) (Negative) Urine Ketones (Negative) Urine Blood (Negative) Urine Nitrite (Negative) Urine Bilirubin (Negative) Urine Urobilinogen (<2.0) mg/dL Ur Leukocyte Esterase (Negative) Urine RBC (0-5) /hpf Urine WBC (0-5) /hpf Urine WBC Clumps (None) /hpf Urine Mucus (None) /hpf Influenza Type A RNA (Not Detectd) Influenza Type B (PCR) (Not Detectd) 06/07/19 06/07/19 06/07/19 Range/Units 23:31 23:31 23:31 WBC (3.8-10.6) k/uL RBC (3.80-5.40) m/uL Hgb (11.4-16.0) gm/dL Hct (34.0-46.0) % MCV (80.0-100.0) fL MCH (25.0-35.0) pg MCHC (31.0-37.0) g/dL RDW (11.5-15.5) % Plt Count (150-450) k/uL Neutrophils % % Lymphocytes % % Monocytes % % Eosinophils % % Basophils % % Neutrophils # (1.3-7.7) k/uL Lymphocytes # (1.0-4.8) k/uL Monocytes # (0-1.0) k/uL Eosinophils # (0-0.7) k/uL Basophils # (0-0.2) k/uL Manual Slide Review Large Platelets Hypochromasia Macrocytosis PT 10.4 (9.0-12.0) sec INR 1.0 (<1.2) APTT 23.2 (22.0-30.0) sec Sodium (137-145) mmol/L Potassium (3.5-5.1) mmol/L Chloride (98-107) mmol/L Carbon Dioxide (22-30) mmol/L Anion Gap mmol/L BUN (7-17) mg/dL Creatinine (0.52-1.04) mg/dL Est GFR (CKD-EPI)AfAm (>60 ml/min/1.73 sqM) Est GFR (CKD-EPI)NonAf (>60 ml/min/1.73 sqM) Glucose (74-99) mg/dL Lactic Ac Sepsis Rflx Plasma Lactic Acid Flo (0.7-2.0) mmol/L Calcium (8.4-10.2) mg/dL Phosphorus (2.5-4.5) mg/dL Magnesium (1.6-2.3) mg/dL Total Bilirubin (0.2-1.3) mg/dL AST (14-36) U/L ALT (4-34) U/L Alkaline Phosphatase (38-126) U/L Creatine Kinase (30-135) U/L Troponin I 0.019 (0.000-0.034) ng/mL NT-Pro-B Natriuret Pep 379 pg/mL Total Protein (6.3-8.2) g/dL Albumin (3.5-5.0) g/dL TSH (0.465-4.680) mIU/L Urine Color Urine Appearance (Clear) Urine pH (5.0-8.0) Ur Specific [place] (1.001-1.035) Urine Protein (Negative) Urine Glucose (UA) (Negative) Urine Ketones (Negative) Urine Blood (Negative) Urine Nitrite (Negative) Urine Bilirubin (Negative) Urine Urobilinogen (<2.0) mg/dL Ur Leukocyte Esterase (Negative) Urine RBC (0-5) /hpf Urine WBC (0-5) /hpf Urine WBC Clumps (None) /hpf Urine Mucus (None) /hpf Influenza Type A RNA (Not Detectd) Influenza Type B (PCR) (Not Detectd) 06/07/19 06/08/19 06/08/19 Range/Units 23:31 00:21 02:18 WBC (3.8-10.6) k/uL RBC (3.80-5.40) m/uL Hgb (11.4-16.0) gm/dL Hct (34.0-46.0) % MCV (80.0-100.0) fL MCH (25.0-35.0) pg MCHC (31.0-37.0) g/dL RDW (11.5-15.5) % Plt Count (150-450) k/uL Neutrophils % % Lymphocytes % % Monocytes % % Eosinophils % % Basophils % % Neutrophils # (1.3-7.7) k/uL Lymphocytes # (1.0-4.8) k/uL Monocytes # (0-1.0) k/uL Eosinophils # (0-0.7) k/uL Basophils # (0-0.2) k/uL Manual Slide Review Large Platelets Hypochromasia Macrocytosis PT (9.0-12.0) sec INR (<1.2) APTT (22.0-30.0) sec Sodium (137-145) mmol/L Potassium (3.5-5.1) mmol/L Chloride (98-107) mmol/L Carbon Dioxide (22-30) mmol/L Anion Gap mmol/L BUN (7-17) mg/dL Creatinine (0.52-1.04) mg/dL Est GFR (CKD-EPI)AfAm (>60 ml/min/1.73 sqM) Est GFR (CKD-EPI)NonAf (>60 ml/min/1.73 sqM) Glucose (74-99) mg/dL Lactic Ac Sepsis Rflx Y Plasma Lactic Acid Flo (0.7-2.0) mmol/L Calcium (8.4-10.2) mg/dL Phosphorus (2.5-4.5) mg/dL Magnesium (1.6-2.3) mg/dL Total Bilirubin (0.2-1.3) mg/dL AST (14-36) U/L ALT (4-34) U/L Alkaline Phosphatase (38-126) U/L Creatine Kinase (30-135) U/L Troponin I (0.000-0.034) ng/mL NT-Pro-B Natriuret Pep pg/mL Total Protein (6.3-8.2) g/dL Albumin (3.5-5.0) g/dL TSH (0.465-4.680) mIU/L Urine Color Yellow Urine Appearance Turbid H (Clear) Urine pH 5.5 (5.0-8.0) Ur Specific [place] 1.012 (1.001-1.035) Urine Protein 2+ H (Negative) Urine Glucose (UA) Negative (Negative) Urine Ketones Negative (Negative) Urine Blood Moderate H (Negative) Urine Nitrite Negative (Negative) Urine Bilirubin Negative (Negative) Urine Urobilinogen <2.0 (<2.0) mg/dL Ur Leukocyte Esterase Large H (Negative) Urine RBC 57 H (0-5) /hpf Urine WBC >182 H (0-5) /hpf Urine WBC Clumps Few H (None) /hpf Urine Mucus Occasional H (None) /hpf Influenza Type A RNA Not Detected (Not Detectd) Influenza Type B (PCR) Not Detected (Not Detectd) - Radiology Data Radiology results: report reviewed (CT brain is negative for acute disease chest x-rays negative for acute disease CT abdomen and pelvis was positive right- sided hydronephrosis and ureteral stone), image reviewed Critical Care Time Critical Care Time: Yes Total Critical Care Time: 95 Disposition Clinical Impression: Altered mental status, UTI (urinary tract infection), ARF (acute renal failure), Hyperkalemia, Delirium due to general medical condition, Sepsis, Right ureteral calculus Disposition: ADMITTED IP TO THIS HOSP Condition: Critical Is patient prescribed a controlled substance at d/c from ED?: No
[2019-06-07 23:39] LABS: Basophils # (A) 0.2 k/uL (0-0.2); Basophils % (A) 1 %; Eosinophils # (A) 0.3 k/uL (0-0.7); Eosinophils % (A) 2 %; HGB 11.9 gm/dL (11.4-16.0); Hypochromasia Marked; Lymphocytes # (A) 2.4 k/uL (1.0-4.8); Lymphocytes % (A) 17 %; MCH 31.7 pg (25.0-35.0); MCHC 29.7 g/dL (31.0-37.0); MCV 106.5 fL (80.0-100.0); Macrocytosis Moderate; Mean Platelet Volume 11.8; Monocytes # (A) 1.2 k/uL (0-1.0); Monocytes % (A) 8 %; Neutrophils # (A) 9.9 k/uL (1.3-7.7); Neutrophils % (A) 69 %; Platelet Count 192 k/uL (150-450); RBC 3.75 m/uL (3.80-5.40); RDW 13.4 % (11.5-15.5); WBC 14.4 k/uL (3.8-10.6)
[2019-06-07 23:49] LABS: Partial Thromboplastin Time 23.2 sec (22.0-30.0); Prothrombin Time 10.4 sec (9.0-12.0)
[2019-06-07 23:54] LABS: Albumin 4.2 g/dL (3.5-5.0); Calcium 9.4 mg/dL (8.4-10.2); Magnesium 2.3 mg/dL (1.6-2.3); Total Bilirubin 0.6 mg/dL (0.2-1.3); Total Protein 9.5 g/dL (6.3-8.2)
[2019-06-07 23:57] LABS: Large Platelets Present
--- NOTE | 2019-06-08 00:05 | XR ---
EXAMINATION TYPE: XR chest 1V portable DATE OF EXAM: 06/07/2019 COMPARISON: 06/07/2019 HISTORY: Syncope TECHNIQUE: FINDINGS: Heart is normal. Lungs are clear of infiltrate. There is no heart failure. Costophrenic ang les are clear. There are chest leads. IMPRESSION: No active cardiopulmonary disease. There is improved inspiration and clearing of mild atelectasis at the lung bases compared to recent exam.
[2019-06-08] MEDS ORDERED: SODIUM CHLORIDE 0.9% 1,000 ML IV STA ×2 (00:06→01:56)
[2019-06-08] MEDS ORDERED: SODIUM CHLORIDE 0.9% 500 ML 500 ML IV STA ×2 (00:06→01:56)
--- NOTE | 2019-06-08 00:07 | XR ---
EXAMINATION TYPE: XR ankle limited RT DATE OF EXAM: 06/07/2019 COMPARISON: NONE HISTORY: Altered mental status Ankle pain. Bruising. TECHNIQUE: 2 views FINDINGS: Ankle mortise is anatomic. I see no fracture nor dislocation. Joint spaces are fairly perry l. IMPRESSION: No fracture seen. There is some osteopenia.
[2019-06-08 00:21] LABS: Potassium 7.3 mmol/L (3.5-5.1)
[2019-06-08 00:23] LABS: Phosphorus 9.8 mg/dL (2.5-4.5)
--- NOTE | 2019-06-08 00:40 | CT ---
EXAMINATION TYPE: CT brain wo con DATE OF EXAM: 06/08/2019 COMPARISON: 09/18/2018 HISTORY: ams CT DLP: 1106.4 mGycm Automated exposure control for dose reduction was used. There is cerebral atrophy. There is no mass effect nor midline shift. There is no sign of intracrania l hemorrhage. Calvarium is intact. There is mucosal thickening and fluid levels in the maxillary sinu ses. IMPRESSION: Cerebral atrophy. No acute intracranial abnormality. There is maxillary sinusitis that is new compare d to old exam.
[2019-06-08] MEDS ORDERED: SODIUM BICARB 8.4% 50 ML SYR (1 MEQ/ML) IV STA ×2 (00:59→07:53)
[2019-06-08] MEDS ORDERED: CALCIUM GLUCONATE 2 GM in SODIUM CHLORIDE 0.9% 100 ML IVPB ONE (00:59)
[2019-06-08] MEDS ORDERED: DEXTROSE 50% SYRINGE 50 ML IVP STA (00:59)
[2019-06-08] MEDS ORDERED: INSULIN REGULAR 100 UNIT/ML VIAL IV ONE ×2 (00:59→09:39)
[2019-06-08] MEDS ORDERED: AMPICILLIN-SULBACTAM 3 GM in SODIUM CHLORIDE 0.9% 100 ML IVPB STA (01:57)
[2019-06-08] MEDS ORDERED: cefTRIAXone IN SWFI 1,000 MG/10 ML SYRINGE IVP STA (01:57)
[2019-06-08 02:38] LABS: Appearance,Urine Turbid (Clear); Bilirubin,Urine Negative (Negative); Blood,Urine Moderate (Negative); Color,Urine Yellow; Glucose,Urine (UA) Negative (Negative); Ketones,Urine Negative (Negative); Leukocyte Esterase,Urine Large (Negative); Mucus,Urine Occasional /hpf; Nitrite,Urine Negative (Negative); PH, Urine 5.5 (5.0-8.0); Protein,Urine 2+ (Negative); RBC,Urine 57 /hpf (0-5); Urobilinogen,Urine <2.0 mg/dL (<2.0); WBC,Urine >182 /hpf (0-5)
[2019-06-08 02:40] LABS: Specific Gravity,Urine 1.012 (1.001-1.035)
[2019-06-08] MEDS ORDERED: SODIUM POLYSTYRENE SULFONATE 15 GM/60 ML BOTTLE PO STA ×2 (03:03→09:38)
--- NOTE | 2019-06-08 03:53 | CT ---
EXAMINATION TYPE: CT abdomen pelvis wo con DATE OF EXAM: 06/08/2019 COMPARISON: 06/12/2009 HISTORY: Patient presents with abdominal pain. CT DLP: 1602.4 mGycm Automated exposure control for dose reduction was used. Multiple axial sections were obtained from the diaphragm to the floor the pelvis with no contrast. There is some patchy atelectasis at the lung bases. There is no pleural effusion. There is no pericar dial effusion. Liver shows no focal defect. Spleen is intact. Stomach is intact. There are surgical clips in the lef t upper quadrant. There is no evidence of pancreatic mass. Bile ducts are not dilated. There is no ad renal mass. There is enlargement of the left and right renal pelvis. Abdominal aorta is atheromatous. There is Arroyo catheter in the urinary bladder. There is probably a 6 mm calculus in the lower right ureter. This is seen on image 117. I see no evidence of the left renal calculus. There is no free fluid in the pelvis. There is no inguinal hernia. There is apparent loop colostomy i n the right upper quadrant. There are spondylotic changes in the lumbar spine. There is no significan t compression deformity. There is osteopenia. There is 10% loss of height of L5 vertebral body. Bony pelvis is intact. There is no sign of a bowel obstruction. There is no mesenteric edema. There is no sign of free air. IMPRESSION: Right-sided hydronephrosis with a obstructing calculus in the distal right ureter. Obstruction is new compared to old exam. Right lower quadrant loop colostomy or ileostomy without evidence of a bowel o bstruction. There is patchy atelectasis at the lung bases that is new compared to old exam.
[2019-06-08] MEDS ORDERED: NALOXONE 0.4 MG/ML 1 ML VIAL IV PRN (04:08)
[2019-06-08] MEDS ORDERED: LORazepam 2 MG/ML INJ IV STA (04:29)
[2019-06-08] MEDS ORDERED: LORazepam 2 MG/ML INJ IV PRN (04:29)
--- NOTE | 2019-06-08 04:37 | US ---
EXAMINATION TYPE: US renals and bladder DATE OF EXAM: 06/08/2019 COMPARISON: CT 06/08/19 CLINICAL HISTORY: renal Fail. Difficult exam due to patient body habitus and patient non-responsive s tatus EXAM MEASUREMENTS: Right Kidney: 11.3 x 4.9 x 3.7 cm Left Kidney: 12.5 x 6.1 x 5.2 cm Right Kidney: Mild fullness of renal pelvis. Hypoechoic area laterally measuring 1.2 x 1.1 x 1.5 cm, possible cyst vs other Left Kidney: No hydronephrosis or masses seen Bladder: Not distended IMPRESSION: There is mild right-sided hydronephrosis. No evidence of solid renal mass. Small right renal cortical cyst. No perinephric fluid.
[2019-06-08] MEDS: SODIUM CHLORIDE 0.9% 1,000 ML IV SCH ×3 (05:00→21:31)
[2019-06-08] MEDS: NOREPINEPHRINE 32 MG in SODIUM CHLORIDE 0.9% 218 ML IV SCH (05:56)
[2019-06-08 06:57] LABS: Glucose,Whole Blood 112 mg/dL (75-99)
[2019-06-08 07:12] LABS: ABG Base Excess -16.8 mmol/L; ABG HCO3 13 mmol/L (21-25); ABG Oxygen Saturation 99.7 % (94-97); ABG PCO2 46 mmHg (35-45); ABG PO2 260 mmHg (83-108); ABG TCO2 15 mmol/L (19-24); Allen Test Performed? Yes
[2019-06-08 07:16] LABS: ABG PH 7.07 (7.35-7.45)
[2019-06-08 07:24] LABS: Partial Thromboplastin Time 24.6 sec (22.0-30.0); Prothrombin Time 10.3 sec (9.0-12.0)
[2019-06-08 08:00] LABS: Basophils # (A) 0.1 k/uL (0-0.2); Basophils % (A) 1 %; Eosinophils # (A) 0.1 k/uL (0-0.7); Eosinophils % (A) 1 %; HCT 34.8 % (34.0-46.0); HGB 10.5 gm/dL (11.4-16.0); Hypochromasia Marked; Lymphocytes # (A) 1.8 k/uL (1.0-4.8); Lymphocytes % (A) 12 %; MCH 32.3 pg (25.0-35.0); MCHC 30.1 g/dL (31.0-37.0); MCV 107.3 fL (80.0-100.0); Macrocytosis Moderate; Mean Platelet Volume 11.7; Monocytes # (A) 1.3 k/uL (0-1.0); Monocytes % (A) 9 %; Neutrophils # (A) 11.3 k/uL (1.3-7.7); Neutrophils % (A) 75 %; Platelet Count 175 k/uL (150-450); RBC 3.24 m/uL (3.80-5.40); RDW 13.5 % (11.5-15.5)
[2019-06-08 08:03] LABS: Albumin 3.2 g/dL (3.5-5.0); Calcium 8.7 mg/dL (8.4-10.2); Magnesium 2.1 mg/dL (1.6-2.3); Total Bilirubin 0.3 mg/dL (0.2-1.3); Total Protein 7.6 g/dL (6.3-8.2)
[2019-06-08] MEDS: PROPOFOL 1,000 MG in EMPTY BAG 1 BAG IV SCH ×4 (08:04→21:38)
[2019-06-08 08:08] LABS: Potassium 6.5 mmol/L (3.5-5.1)
[2019-06-08 08:23] LABS: Large Platelets Present
[2019-06-08 08:24] LABS: Poikilocytosis (M) Present
[2019-06-08] MEDS ORDERED: AMPICILLIN-SULBACTAM 3 GM in SODIUM CHLORIDE 0.9% 100 ML IVPB SCH (08:30)
[2019-06-08 08:45] LABS: ABG Base Excess -11.6 mmol/L; ABG HCO3 18 mmol/L (21-25); ABG Oxygen Saturation 99.9 % (94-97); ABG PCO2 56 mmHg (35-45); ABG PO2 399 mmHg (83-108); ABG TCO2 20 mmol/L (19-24); Allen Test Performed? Yes
[2019-06-08 08:48] LABS: ABG PH 7.11 (7.35-7.45)
[2019-06-08] MEDS ORDERED: ENOXAPARIN 40 MG/0.4 ML SYRINGE SQ SCH (09:00)
[2019-06-08] MEDS: DEXTROSE 5% IN WATER 1,000 ML with SODIUM BICARB (1 MEQ/ML) 150 ML IV SCH (09:15)
[2019-06-08] MEDS: CHLORHEXIDINE GLUCONATE 15 ML CUP MUCOUS MEM SCH ×2 (09:16→21:30)
[2019-06-08] MEDS: PANTOPRAZOLE 40 MG/10 ML VIAL IV SCH (09:16)
--- NOTE | 2019-06-08 09:38 | XR ---
EXAMINATION TYPE: XR chest 1V portable DATE OF EXAM: 06/08/2019 HISTORY: Tube placement. REFERENCE: Previous study dated 06/07/2019. FINDINGS: There is an interval intubation of the patient. ET tube is in satisfactory position with th e tip approximately 2.6 cm from the sukumar. An NG tube is in place and its tip is within the stomach. A right internal jugular catheter has been placed and its tip is in the right atrium. There is increasing opacity of the right lung base. This is likely a combination of atelectasis and p leural fluid. Superimposed pneumonia could not BE excluded. There is also a small left effusion. Ther e is vascular congestion and interstitial change. I could not exclude some degree of congestive heart failure. IMPRESSION: 1. SATISFACTORY TUBE PLACEMENT. 2. FINDINGS CONSISTENT WITH MILD HEART FAILURE. 3. WORSENING OPACITY, RIGHT LUNG BASE.
[2019-06-08] MEDS ORDERED: DEXTROSE 10 % IN WATER 250 ML IV ONE (09:42)
[2019-06-08] MEDS ORDERED: FUROSEMIDE 100 MG in SODIUM CHLORIDE 0.9% 90 ML IV SCH (09:45)
--- NOTE | 2019-06-08 09:59 | P.NPCON ---
History of Present Illness - Reason for Consult Consult date: 06/08/19 acute renal failure - Chief Complaint Obtundation in a patient with dementia and acute kidney injury - History of Present Illness This is an 84-year-old known with dementia, who is a resident of the correction brought here because of weakness and difficulty walking per the ER physician's note. Patient's was subsequently admitted and intubated because of his severe metabolic acidosis with pH of 7.07. Currently she is in the ICU sedated and unable to get any history from her. Her blood pressure on admission was 103/52 and has been recorded as low as 89. She has been afebrile On admission her labs showed a creatinine off 3.77, BUN was 61. Sodium 138 potassium 7.3 chloride 113 bicarb 13 and anion gap was 14. Urinalysis showed specific gravity 1012 2+ protein, large leukocyte Estrace WBCs greater than 182 RBCs 57 and moderate amount of blood. Her troponin was 0.019 CK was 33. TSH 1.68. Normal AST and AST. Lactic acid was 2.4. Calcium 9.4 and phosphorus was 9.8. white count of 14,400, ABGs shows pH 7.07 pCO2 is 46 and pO2 is 260 on 100% FiO2. She is supposedly given 4 L of IV fluids without any urine output. Over the last few hours she is starting to make some urine, 30 mL over the last 2 hours Past Medical History Past Medical History: CVA/TIA, GERD/Reflux, Hypertension, Memory Impairment, Osteoarthritis (OA), Seizure Disorder, Thyroid Disorder Additional Past Medical History / Comment(s): restless leg syndrome, hemiplegia, hemiparesis, anemia, History of Any Multi-Drug Resistant Organisms: MRSA Date of last positivie culture/infection: 2008 MDRO Source:: stool (per pt's daughter) Additional Past Surgical History / Comment(s): ileostomy Past Anesthesia/Blood Transfusion Reactions: No Reported Reaction Past Psychological History: Anxiety Smoking Status: Never smoker Past Alcohol Use History: Unable to Obtain Past Drug Use History: Unable to Obtain - Past Family History Father Family Medical History: Cancer Additional Family Medical History / Comment(s): lung CA Mother Family Medical History: Cancer Sister(s) Additional Family Medical History / Comment(s): emphysema Medications and Allergies Home Medications Medication Instructions Recorded Confirmed Type Acetaminophen Tab [Tylenol] 650 mg PO Q6H PRN 09/18/18 09/18/18 History Ascorbic Acid [Vitamin C] 1,000 mg PO BID 09/18/18 09/18/18 History Aspirin 81 mg PO HS 09/18/18 09/18/18 History Baclofen [Lioresal] 20 mg PO BID 09/18/18 09/18/18 History Cholecalciferol [Vitamin D3 (25 5,000 unit PO MO 09/18/18 09/18/18 History Mcg = 1000 Iu)] Divalproex [Depakote] 250 mg PO BID@0700,1600 09/18/18 09/18/18 History Ferrous Sulfate [Iron (65 MG 325 mg PO TID@0700,1300,1900 09/18/18 09/18/18 H istory Elemental)] Ipratropium-Albuterol Nebulize 3 ml INHALATION RT-Q4H PRN 09/18/18 09/18/18 History [Duoneb 0.5 mg-3 mg/3 ml Soln] Levothyroxine Sodium [Synthroid] 50 mcg PO DAILY 09/18/18 09/18/18 History Lisinopril [Zestril] 5 mg PO DAILY 09/18/18 09/18/18 History Melatonin 9 mg PO HS PRN 09/18/18 09/18/18 History Methenamine Hippurate 1 gm PO BID 09/18/18 09/18/18 History Omeprazole [PriLOSEC] 20 mg PO DAILY 09/18/18 09/18/18 History Sertraline [Zoloft] 100 mg PO DAILY 09/18/18 09/18/18 History amLODIPine [Norvasc] 10 mg PO DAILY 09/18/18 09/18/18 History Cefuroxime Axetil [Ceftin] 500 mg PO BID #2 tab 09/23/18 Rx Fluconazole [Diflucan] 200 mg PO DAILY 10 Days #7 tab 09/23/18 Rx rOPINIRole HCL [Requip] 0.5 mg PO TID tab 09/23/18 Rx Allergies Allergy/AdvReac Type Severity Reaction Status Date / Time codeine AdvReac Unknown Verified 09/18/18 18:08 Physical Exam Vitals: Vital Signs Temp Pulse Resp BP Pulse Ox 06/08/19 09:15 65 14 102/43 100 06/08/19 09:00 65 14 110/41 100 20 08:45 65 14 100/40 100 06/08/19 08:30 63 14 93/42 100 06/08/19 08:15 60 14 101/41 98 06/08/19 08:00 97.6 F 68 14 108/44 99 06/08/19 07:45 61 13 106/45 100 06/08/19 07:30 74 15 106/45 100 06/08/19 07:15 75 18 95/47 100 06/08/19 07:00 78 18 95/47 98 06/08/19 06:50 90 14 110/82 99 06/08/19 06:45 97.4 F L 78 16 99/45 100 06/08/19 06:18 73 24 103/47 98 06/08/19 06:00 77 18 94/55 100 06/08/19 05:50 75 18 90/44 100 06/08/19 05:40 73 18 78/51 100 06/08/19 05:30 74 18 84/49 100 06/08/19 05:20 78 18 100/42 100 06/08/19 05:10 76 16 109/83 100 06/08/19 05:00 90 16 90/60 100 06/08/19 04:50 89 22 110/52 98 06/08/19 04:40 90 15 95/48 99 06/08/19 04:30 82 20 109/66 100 06/08/19 04:20 80 16 93/49 98 06/08/19 04:10 78 18 102/48 99 06/08/19 04:00 82 20 89/50 100 06/08/19 03:33 89 24 87/51 96 06/08/19 02:50 73 20 107/52 99 06/08/19 02:15 70 22 106/55 98 06/08/19 02:00 90 24 103/52 96 06/08/19 01:45 86 24 104/54 96 06/08/19 01:30 86 20 88/43 95 06/08/19 01:15 86 24 67/43 95 06/08/19 01:00 81 24 90/55 95 06/08/19 00:45 74 24 78/61 06/08/19 00:30 75 20 82/48 06/08/19 00:02 80 06/07/19 23:58 81 06/07/19 23:35 84 20 78/61 06/07/19 23:30 82 24 88/62 06/07/19 23:15 97.3 F L 87 24 79/38 95 Intake and Output 06/07/19 06/08/19 06/08/19 22:59 06:59 14:59 Intake Total 412.698 Output Total 180 Balance 232.698 Intake: IV 390 Sodium Chloride 0.9% 1, 390 000 ml @ 130 mls/hr IV . Q7H42M [facility] Rx#:[id number] Intake, IV Titration 22.698 Amount Norepinephrine 32 mg In 8.291 Sodium Chloride 0.9% 218 ml @ 0.05 MCG/KG/MIN 1.98 mls/hr IV .Q24H [facility] Rx#: [id number] Propofol 1,000 mg In 14.407 Empty Bag 1 bag @ Titrate IV .Q0M [facility] Rx#: [id number] Output: Urine 180 Other: Weight 84.5 kg Exams and she is sedated and intubated obtunded HEENT exam no JVP neck is supple no facial asymmetry Pupils are equal Lungs are clear to auscultation fair air entry bilaterally on the ventilation. Currently on 50% FiO2 Heart sounds are unremarkable no murmur rub gallop normal sinus rhythm Abdomen soft nontender no masses felt Extremity exam reveals trace edema. Neurologically obtunded sedated Results - Lab Results Most recent lab results ABG pH 7.11 (7.35-7.45) L* 06/08/19 08:44 ABG pCO2 56 mmHg (35-45) H 06/08/19 08:44 ABG pO2 399 mmHg (83-108) H 06/08/19 08:44 ABG HCO3 18 mmol/L (21-25) L 06/08/19 08:44 ABG O2 Saturation 99.9 % (94-97) H 06/08/19 08:44 Calcium 8.7 mg/dL (8.4-10.2) 06/08/19 07:00 Phosphorus 9.8 mg/dL (2.5-4.5) H* 06/07/19 23:31 Magnesium 2.1 mg/dL (1.6-2.3) 06/08/19 07:00 06/08/19 07:00 06/08/19 07:00 Assessment and Plan Assessment: Impression 1. Acute kidney injury secondary to possibly septic syndrome with slightly high lactic acid, severe non-gap acidosis. Although she has an ostomy that could have caused her to have non-gap acidosis but previously her bicarb has been normal. So this is deemed to be from acute kidney injury. Possibly UTI with pyelonephritis. Ultrasound of the kidney shows right-sided mild hydronephrosis which was not previously noted. Computed tomography scan confirms this. 2. No evidence of any chronic kidney disease with creatinine being normal, on 09/23/2018 was 0.57 3. Dementia documented in September 2018 visit here 4. Likely urinary tract infection. 5. Severe hyperkalemia improved. Admission potassium was 7.3 and now is 6.5 with usual conservative treatment 6. Cause of right-sided hydronephrosis not clear. Urology is on the case. Computed tomography scan does not show any cause of the right hydronephrosis. 7. Obtundation cause not very clear unlikely uremia. A computed tomography scan of the head shows cerebral atrophy Recommendation 1. No indication for dialysis given this mild abnormal labs. The cause of her obtundation and change in mental status needs to be looked into more. 2. She is also making some urine and therefore she might resolve her acute kidney injury without dialysis. 3. Will give her Kayexalate 15 g every 62. 4. Agree with bicarb drip at 50 mL an hour with the D5W with 3 A of sodium bicarb. 5. Will start IV normal saline at 100 and hour, concurrently with IV Lasix drip at 10 minute ramp and hour to induce potassium loss. 6. We'll give her D50 one amp with insulin Humulin or 8 units IV to follow. 7. Will recheck labs in 4 hours from the administration of insulin and D50. 8. Waiting for the chest x-ray to see if there is need for acute dialysis today for congestive heart failure, etc. reported that there isn't new finding of possible pneumonia right lung base and mild CHF 9. If blood and urine cultures have not been drawn with García and she'll his covered with antibiotic broad-spectrum
--- NOTE | 2019-06-08 10:06 | P.HPIM ---
History of Present Illness This is a pleasant 84 years old female with past medical history of CVA with hemiparesis , GERD, hypertension, memory impairment, osteoarthritis , seizure disorder, restless leg syndrome. On the presentation patient was attended and could not provide information. She was acidotic and she got intubated immediately. Information taken from the staff and records. Patient vitals this morning are more stable. On presentation patient was hypertensive with blood pressure 79/38. Leukocytosis with the [place] of 15 K, Improving 10.5, Patient Was Acidotic with pH is 7.0 and 7.1, potassium is elevated at 7.3 and 6.5, creatinine elevated at 3.7 and 2.6. Troponin and liver enzymes are not elevated, proBNP is 379, TSH 1.6. Influenza is negative. Chest x-ray: No acute process.ankle x-ray: No fracture. CT of the brain: No acute process, cerebral atrophy per radiologist. CT of the abdomen and pelvis with no contrast showing right-sided hydronephrosis with obstructing calculus, right lower quadrant ileostomy, no bowel obstruction. On admission patient had several boluses of IV fluids, continue therapy for hyperkalemia per protocol. She was started on ceftriaxone and Unasyn. Also 4 Lovenox for DVT prophylaxis. She is making urine, 30 mL/h Review of Systems N/A Past Medical History Past Medical History: CVA/TIA, GERD/Reflux, Hypertension, Memory Impairment, Osteoarthritis (OA), Seizure Disorder, Thyroid Disorder Additional Past Medical History / Comment(s): restless leg syndrome, hemiplegia, hemiparesis, anemia, History of Any Multi-Drug Resistant Organisms: MRSA Date of last positivie culture/infection: 2008 MDRO Source:: stool (per pt's daughter) Additional Past Surgical History / Comment(s): ileostomy Past Anesthesia/Blood Transfusion Reactions: No Reported Reaction Past Psychological History: Anxiety Smoking Status: Never smoker Past Alcohol Use History: Unable to Obtain Past Drug Use History: Unable to Obtain - Past Family History Father Family Medical History: Cancer Additional Family Medical History / Comment(s): lung CA Mother Family Medical History: Cancer Sister(s) Additional Family Medical History / Comment(s): emphysema Medications and Allergies Home Medications Medication Instructions Recorded Confirmed Type Acetaminophen Tab [Tylenol] 650 mg PO Q6H PRN 09/18/18 09/18/18 History Ascorbic Acid [Vitamin C] 1,000 mg PO BID 09/18/18 09/18/18 History Aspirin 81 mg PO HS 09/18/18 09/18/18 History Baclofen [Lioresal] 20 mg PO BID 09/18/18 09/18/18 History Cholecalciferol [Vitamin D3 (25 5,000 unit PO MO 09/18/18 09/18/18 History Mcg = 1000 Iu)] Divalproex [Depakote] 250 mg PO BID@0700,1600 09/18/18 09/18/18 History Ferrous Sulfate [Iron (65 MG 325 mg PO TID@0700,1300,1900 09/18/18 09/18/18 History Elemental)] Ipratropium-Albuterol Nebulize 3 ml INHALATION RT-Q4H PRN 09/18/18 09/18/18 History [Duoneb 0.5 mg-3 mg/3 ml Soln] Levothyroxine Sodium [Synthroid] 50 mcg PO DAILY 09/18/18 09/18/18 History Lisinopril [Zestril] 5 mg PO DAILY 09/18/18 09/18/18 History Melatonin 9 mg PO HS PRN 09/18/18 09/18/18 History Methenamine Hippurate 1 gm PO BID 09/18/18 09/18/18 History Omeprazole [PriLOSEC] 20 mg PO DAILY 09/18/18 09/18/18 History Sertraline [Zoloft] 100 mg PO DAILY 09/18/18 09/18/18 History amLODIPine [Norvasc] 10 mg PO DAILY 09/18/18 09/18/18 History Cefuroxime Axetil [Ceftin] 500 mg PO BID #2 tab 09/23/18 Rx Fluconazole [Diflucan] 200 mg PO DAILY 10 Days #7 tab 09/23/18 Rx rOPINIRole HCL [Requip] 0.5 mg PO TID tab 09/23/18 Rx Allergies Allergy/AdvReac Type Severity Reaction Status Date / Time codeine AdvReac Unknown Verified 09/18/18 18:08 Physical Exam Vitals: Vital Signs Temp Pulse Resp BP Pulse Ox 06/08/19 09:15 65 14 102/43 100 06/08/19 09:00 65 14 110/41 100 06/08/19 08:45 65 14 100/40 100 20 08:30 63 14 93/42 100 06/08/19 08:15 60 14 101/41 98 06/08/19 08:00 97.6 F 68 14 108/44 99 20 07:45 61 13 106/45 100 06/08/19 07:30 74 15 106/45 100 06/08/19 07:15 75 18 95/47 100 06/08/19 07:00 78 18 95/47 98 06/08/19 06:50 90 14 110/82 99 06/08/19 06:45 97.4 F L 78 16 99/45 100 06/08/19 06:18 73 24 103/47 98 06/08/19 06:00 77 18 94/55 100 06/08/19 05:50 75 18 90/44 100 06/08/19 05:40 73 18 78/51 100 06/08/19 05:30 74 18 84/49 100 06/08/19 05:20 78 18 100/42 100 06/08/19 05:10 76 16 109/83 100 06/08/19 05:00 90 16 90/60 100 06/08/19 04:50 89 22 110/52 98 06/08/19 04:40 90 15 95/48 99 06/08/19 04:30 82 20 109/66 100 06/08/19 04:20 80 16 93/49 98 06/08/19 04:10 78 18 102/48 99 06/08/19 04:00 82 20 89/50 100 06/08/19 03:33 89 24 87/51 96 06/08/19 02:50 73 20 107/52 99 06/08/19 02:15 70 22 106/55 98 06/08/19 02:00 90 24 103/52 96 06/08/19 01:45 86 24 104/54 96 06/08/19 01:30 86 20 88/43 95 06/08/19 01:15 86 24 67/43 95 06/08/19 01:00 81 24 90/55 95 06/08/19 00:45 74 24 78/61 06/08/19 00:30 75 20 82/48 06/08/19 00:02 80 06/07/19 23:58 81 06/07/19 23:35 84 20 78/61 06/07/19 23:30 82 24 88/62 06/07/19 23:15 97.3 F L 87 24 79/38 95 Intake and Output 06/07/19 06/08/19 06/08/19 22:59 06:59 14:59 Intake Total 412.698 Output Total 180 Balance 232.698 Intake: IV 390 Sodium Chloride 0.9% 1, 390 000 ml @ 130 mls/hr IV . Q7H42M [facility] Rx#:[id number] Intake, IV Titration 22.698 Amount Norepinephrine 32 mg In 8.291 Sodium Chloride 0.9% 218 ml @ 0.05 MCG/KG/MIN 1.98 mls/hr IV .Q24H [facility] Rx#: [id number] Propofol 1,000 mg In 14.407 Empty Bag 1 bag @ Titrate IV .Q0M [facility] Rx#: [id number] Output: Urine 180 Other: Weight 84.5 kg -GENERAL: The patient is intubated and sedated HEENT: Pupils are round and equally reacting to light. EOMI. No scleral icterus. No conjunctival pallor. Normocephalic, atraumatic. No pharyngeal erythema. No thyromegaly. CARDIOVASCULAR: S1 and S2 present. No murmurs, rubs, or gallops. PULMONARY: Chest is clear to auscultation, no wheezing or crackles. -ABDOMEN: Soft, nontender, nondistended, normoactive bowel sounds. No palpable organomegaly. Arroyo catheter is in place MUSCULOSKELETAL: No joint swelling or deformity. EXTREMITIES: No cyanosis, clubbing, or pedal edema. NEUROLOGICAL: Gross neurological examination did not reveal any focal deficits. SKIN: No rashes. No petechiae Results CBC & Chem 7: 06/08/19 07:00 06/08/19 07:00 Labs: Abnormal Lab Results - Last 24 Hours (Table) 06/07/19 06/07/19 06/07/19 Range/Units 23:31 23:31 23:31 WBC 14.4 H (3.8-10.6) k/uL RBC 3.75 L (3.80-5.40) m/uL Hgb (11.4-16.0) gm/dL MCV 106.5 H (80.0-100.0) fL MCHC 29.7 L (31.0-37.0) g/dL Neutrophils # 9.9 H (1.3-7.7) k/uL Monocytes # 1.2 H (0-1.0) k/uL ABG pH (7.35-7.45) ABG pCO2 (35-45) mmHg ABG pO2 (83-108) mmHg ABG HCO3 (21-25) mmol/L ABG Total CO2 (19-24) mmol/L ABG O2 Saturation (94-97) % Potassium 7.3 H* (3.5-5.1) mmol/L Chloride 111 H (98-107) mmol/L Carbon Dioxide 13 L (22-30) mmol/L BUN 61 H (7-17) mg/dL Creatinine 3.77 H (0.52-1.04) mg/dL Glucose 109 H (74-99) mg/dL POC Glucose (mg/dL) (75-99) mg/dL Plasma Lactic Acid Flo 2.4 H* (0.7-2.0) mmol/L Phosphorus 9.8 H* (2.5-4.5) mg/dL Total Protein 9.5 H (6.3-8.2) g/dL Albumin (3.5-5.0) g/dL Urine Appearance (Clear) Urine Protein (Negative) Urine Blood (Negative) Ur Leukocyte Esterase (Negative) Urine RBC (0-5) /hpf Urine WBC (0-5) /hpf Urine WBC Clumps (None) /hpf Urine Mucus (None) /hpf 06/08/19 06/08/19 06/08/19 Range/Units 02:18 06:45 07:00 WBC 15.0 H (3.8-10.6) k/uL RBC 3.24 L (3.80-5.40) m/uL Hgb 10.5 L (11.4-16.0) gm/dL MCV 107.3 H (80.0-100.0) fL MCHC 30.1 L (31.0-37.0) g/dL Neutrophils # 11.3 H (1.3-7.7) k/uL Monocytes # 1.3 H (0-1.0) k/uL ABG pH (7.35-7.45) ABG pCO2 (35-45) mmHg ABG pO2 (83-108) mmHg ABG HCO3 (21-25) mmol/L ABG Total CO2 (19-24) mmol/L ABG O2 Saturation (94-97) % Potassium (3.5-5.1) mmol/L Chloride (98-107) mmol/L Carbon Dioxide (22-30) mmol/L BUN (7-17) mg/dL Creatinine (0.52-1.04) mg/dL Glucose (74-99) mg/dL POC Glucose (mg/dL) 112 H (75-99) mg/dL Plasma Lactic Acid Flo (0.7-2.0) mmol/L Phosphorus (2.5-4.5) mg/dL Total Protein (6.3-8.2) g/dL Albumin (3.5-5.0) g/dL Urine Appearance Turbid H (Clear) Urine Protein 2+ H (Negative) Urine Blood Moderate H (Negative) Ur Leukocyte Esterase Large H (Negative) Urine RBC 57 H (0-5) /hpf Urine WBC >182 H (0-5) /hpf Urine WBC Clumps Few H (None) /hpf Urine Mucus Occasional H (None) /hpf 06/08/19 06/08/19 06/08/19 Range/Units 07:00 07:11 08:44 WBC (3.8-10.6) k/uL RBC (3.80-5.40) m/uL Hgb (11.4-16.0) gm/dL MCV (80.0-100.0) fL MCHC (31.0-37.0) g/dL Neutrophils # (1.3-7.7) k/uL Monocytes # (0-1.0) k/uL ABG pH 7.07 L* 7.11 L* (7.35-7.45) ABG pCO2 46 H 56 H (35-45) mmHg ABG pO2 260 H 399 H (83-108) mmHg ABG HCO3 13 L 18 L (21-25) mmol/L ABG Total CO2 15 L (19-24) mmol/L ABG O2 Saturation 99.7 H 99.9 H (94-97) % Potassium 6.5 H* (3.5-5.1) mmol/L Chloride 119 H (98-107) mmol/L Carbon Dioxide 14 L (22-30) mmol/L BUN 52 H (7-17) mg/dL Creatinine 2.63 H (0.52-1.04) mg/dL Glucose 109 H (74-99) mg/dL POC Glucose (mg/dL) (75-99) mg/dL Plasma Lactic Acid Flo (0.7-2.0) mmol/L Phosphorus (2.5-4.5) mg/dL Total Protein (6.3-8.2) g/dL Albumin 3.2 L (3.5-5.0) g/dL Urine Appearance (Clear) Urine Protein (Negative) Urine Blood (Negative) Ur Leukocyte Esterase (Negative) Urine RBC (0-5) /hpf Urine WBC (0-5) /hpf Urine WBC Clumps (None) /hpf Urine Mucus (None) /hpf Assessment and Plan Assessment: Septic shock secondary to UTI Right hydronephrosis secondary to obstructing calculus Fluid overload and pulmonary congestion, could be due to renal failure Acute kidney injury and hyperkalemia, improving. However she is at-risk of hemodialysis Hypotension, on the presentation. Improved With Levothroid Elevated lactic acid came back to normal GERD Hypertension Memory impairment Osteoarthritis Seizure disorder Restless leg syndrome history of CVA with hemiparesis Plan: this is a pleasant 84 years old female who presents with septic shock secondary to UTI and obstructive right side Stone and hydronephrosis. Continue with antibiotics and fluids. Regular to change antibiotics to Zosyn. Follow-up recommendation by critical care team and urology. Follow-up recommendation by equipment application specialist. also started on lasix drip Labs and medication were reviewed.. Continue same treatment. Continue with symptomatic treatment. Resume home medication. Monitor lytes and vitals. DVT and GI prophylaxis. Further recommendations of the clinical course of the patient DVT prophylaxis: Subcutaneous Lovenox GI Prophylaxis: Pepcid PT/OT: Pending Prognosis is guarded
[2019-06-08] MEDS: PIPERACILLIN-TAZOBACTAM 3.375 GM in SODIUM CHLORIDE 0.9% 100 ML IVPB SCH ×2 (10:57→21:30)
[2019-06-08] MEDS: IPRATROPIUM-ALBUTEROL 3 ML NEB INHALATION PRN ×2 (11:04→15:25)
[2019-06-08 11:43] LABS: ABG Base Excess -12.3 mmol/L; ABG HCO3 17 mmol/L (21-25); ABG Oxygen Saturation 99.5 % (94-97); ABG PCO2 49 mmHg (35-45); ABG PO2 186 mmHg (83-108); ABG TCO2 18 mmol/L (19-24); Allen Test Performed? Yes
[2019-06-08 11:45] LABS: ABG PH 7.14 (7.35-7.45)
[2019-06-08 11:51] LABS: Glucose,Whole Blood 198 mg/dL (75-99)
--- NOTE | 2019-06-08 14:25 | P.CNPUL ---
History of Present Illness Consult date: 06/08/19 Requesting physician: Britton E Sheet Reason for consult: other (Septic shock) Chief complaint: Weakness, lack of energy, difficulty walking. Altered mental status History of present illness: This is an 84-year-old female with history of multiple medical problems including hypertension, GERD, history of previous CVA, dementia, seizure disorder, restless leg syndrome, patient lives at a skilled nursing. She was brought into the ER last night mostly complaining of generalized weakness, altered mental status, and she was found to be hypotensive, hyperkalemic with a potassium of 7.3, metabolically acidotic, patient was given fluid boluses, no improvement in the blood pressure. Hence central line was placed by the ER physician and she was started on norepinephrine. Patient was transferred to the intensive care unit, and shortly after she arrived to the ICU, I was notified by the nurse that the patient seems to be up on that, unresponsive, and ABG showed a pO2 of 260, pCO2 of 46, and pH of 7.07. Again considering her obtundation and considering her profound metabolic acidosis, I recommended immediate intubation and recommended immediate bicarb to be given and to start the patient on a bicarb drip. Postintubation ABG showed a pO2 of 399 pCO2 of 56 pH of 7.11. Her ventilator settings were adjusted and repeat ABG showed a pO2 of 186 pCO2 of 49 pH of 7.14 hence the ventilator settings were adjusted again, and she is now on tidal volume of 450 assist-control rate of 20, FiO2 of 35%, and PEEP of 5. Patient was given sodium bicarb drip, started empirically on antibiotics. She w as also placed on Lasix drip because of worsening pulmonary edema noted. Placed on norepinephrine at 0.06 mcg/kg/m, and propofol at 40 mcg/kg/m. Bicarb was continued. Lactic acid on admission was 1.2. Review of Systems ROS unobtainable: due to endotracheal tube Past Medical History Past Medical History: CVA/TIA, GERD/Reflux, Hypertension, Memory Impairment, Osteoarthritis (OA), Seizure Disorder, Thyroid Disorder Additional Past Medical History / Comment(s): restless leg syndrome, hemiplegia, hemiparesis, anemia, History of Any Multi-Drug Resistant Organisms: MRSA Date of last positivie culture/infection: 2008 MDRO Source:: stool (per pt's daughter) Additional Past Surgical History / Comment(s): ileostomy Past Anesthesia/Blood Transfusion Reactions: No Reported Reaction Past Psychological History: Anxiety Smoking Status: Never smoker Past Alcohol Use History: Unable to Obtain Past Drug Use History: Unable to Obtain - Past Family History Father Family Medical History: Cancer Additional Family Medical History / Comment(s): lung CA Mother Family Medical History: Cancer Sister(s) Additional Family Medical History / Comment(s): emphysema Medications and Allergies Home Medications Medication Instructions Recorded Confirmed Type Acetaminophen Tab [Tylenol] 650 mg PO TID@0500,1300,2100 09/18/18 06/08/19 History Ascorbic Acid [Vitamin C] 1,000 mg PO BID 09/18/18 06/08/19 History Aspirin 81 mg PO HS 09/18/18 06/08/19 History Baclofen [Lioresal] 20 mg PO BID 09/18/18 06/08/19 History Cholecalciferol [Vitamin D3 (25 7,000 unit PO MO 09/18/18 06/08/19 History Mcg = 1000 Iu)] Divalproex [Depakote] 250 mg PO BID@0700,1600 09/18/18 06/08/19 History Ipratropium-Albuterol Nebulize 3 ml INHALATION RT-Q4H PRN 09/18/18 06/08/19 History [Duoneb 0.5 mg-3 mg/3 ml Soln] Levothyroxine Sodium [Synthroid] 50 mcg PO DAILY 09/18/18 06/08/19 History Lisinopril [Zestril] 5 mg PO DAILY 09/18/18 06/08/19 History Melatonin 9 mg PO HS PRN 09/18/18 06/08/19 History Methenamine Hippurate 1 gm PO BID 09/18/18 06/08/19 History Sertraline [Zoloft] 100 mg PO DAILY 09/18/18 06/08/19 History amLODIPine [Norvasc] 10 mg PO DAILY 09/18/18 06/08/19 History Fluticasone Nasal [place] [Flonase 2 spr EA NOSTRIL DAILY 06/08/19 06/08/19 History Nasal [place]] Lactulose 30 gm PO BID 06/08/19 06/08/19 History Lansoprazole [Prevacid] 15 mg PO DAILY 06/08/19 06/08/19 History Primidone [Mysoline] 25 mg PO HS 06/08/19 06/08/19 History rOPINIRole HCL [Requip] 0.5 mg PO TID@0700,1300,1900 06/08/19 06/08/19 History traMADol HCL [Ultram] 50 mg PO TID 06/08/19 06/08/19 History Allergies Allergy/AdvReac Type Severity Reaction Status Date / Time codeine AdvReac Unknown Verified 06/08/19 10:54 Physical Exam Vitals: Vital Signs Temp Pulse Resp BP Pulse Ox 06/08/19 14:00 58 L 20 102/45 99 06/08/19 13:45 61 20 102/45 99 06/08/19 13:30 60 20 102/45 99 06/08/19 13:15 62 20 102/45 100 06/08/19 13:00 63 20 116/47 100 06/08/19 12:45 63 20 116/47 99 06/08/19 12:30 65 20 116/47 100 06/08/19 12:15 66 20 116/47 100 06/08/19 12:00 97.8 F 68 20 105/38 100 06/08/19 11:45 70 20 105/38 99 06/08/19 11:30 67 20 125/54 100 06/08/19 11:15 62 20 93/31 100 06/08/19 11:10 64 06/08/19 11:00 64 20 108/35 89 L 06/08/19 10:45 66 20 125/49 100 06/08/19 10:30 63 21 124/47 99 06/08/19 10:15 64 20 122/47 99 06/08/19 10:00 65 20 115/43 99 06/08/19 09:45 65 20 118/44 99 06/08/19 09:30 73 20 113/52 99 06/08/19 09:15 65 14 102/43 100 06/08/19 09:00 65 14 110/41 100 06/08/19 08:45 65 14 100/40 100 06/08/19 08:30 63 14 93/42 100 06/08/19 08:15 60 14 101/41 98 06/08/19 08:00 97.6 F 68 14 108/44 99 06/08/19 07:45 61 13 106/45 100 06/08/19 07:30 74 15 106/45 100 06/08/19 07:15 75 18 95/47 100 06/08/19 07:00 78 18 95/47 98 06/08/19 06:50 90 14 110/82 99 06/08/19 06:45 97.4 F L 78 16 99/45 100 06/08/19 06:18 73 24 103/47 98 06/08/19 06:00 77 18 94/55 100 06/08/19 05:50 75 18 90/44 100 06/08/19 05:40 73 18 78/51 100 06/08/19 05:30 74 18 84/49 100 06/08/19 05:20 78 18 100/42 100 06/08/19 05:10 76 16 109/83 100 06/08/19 05:00 90 16 90/60 100 06/08/19 04:50 89 22 110/52 98 06/08/19 04:40 90 15 95/48 99 06/08/19 04:30 82 20 109/66 100 06/08/19 04:20 80 16 93/49 98 06/08/19 04:10 78 18 102/48 99 06/08/19 04:00 82 20 89/50 100 06/08/19 03:33 89 24 87/51 96 06/08/19 02:50 73 20 107/52 99 06/08/19 02:15 70 22 106/55 98 06/08/19 02:00 90 24 103/52 96 06/08/19 01:45 86 24 104/54 96 06/08/19 01:30 86 20 88/43 95 06/08/19 01:15 86 24 67/43 95 06/08/19 01:00 81 24 90/55 95 06/08/19 00:45 74 24 78/61 06/08/19 00:30 75 20 82/48 06/08/19 00:02 80 06/07/19 23:58 81 06/07/19 23:35 84 20 78/61 06/07/19 23:30 82 24 88/62 06/07/19 23:15 97.3 F L 87 24 79/38 95 Intake and Output 06/07/19 06/08/19 06/08/19 22:59 06:59 14:59 Intake Total 1620.786 Output Total 2105 Balance -484.214 Intake: IV 1430 Ampicillin-Sulbactam 3 gm 100 In Sodium Chloride 0.9% 100 ml @ 200 mls/hr IVPB ONCE STA Rx#:[id number] Dextrose 10 % in Water 250 250 ml @ 999 mls/hr IV ONCE ONE Rx#:[id number] Dextrose 5% in Water 1, 150 000 ml @ 50 mls/hr IV . Q23H [facility] with Sodium Bicarb (1 Meq/ml) 150 ml Rx#:[id number] Furosemide 100 mg In 50 Sodium Chloride 0.9% 90 ml @ 10 MG/HR 10 mls/hr IV .Q10H [facility] Rx#: [id number] Piperacillin-Tazobactam 3 100 .375 gm In Sodium Chloride 0.9% 100 ml @ 25 mls/hr IVPB Q12HR [facility] Rx #:[id number] Sodium Chloride 0.9% 1, 780 000 ml @ 100 mls/hr IV . Q10H [facility] Rx#:[id number] Intake, IV Titration 90.786 Amount Norepinephrine 32 mg In 17.355 Sodium Chloride 0.9% 218 ml @ 0.05 MCG/KG/MIN 1.98 mls/hr IV .Q24H [facility] Rx#: [id number] Propofol 1,000 mg In 73.431 Empty Bag 1 bag @ Titrate IV .Q0M [facility] Rx#: [id number] Other 100 Output: Urine 2105 Other: Weight 84.5 kg ABP, PAP, CO, CI - Last 8 Hours Arterial Blood Pressure 97/42 Arterial Blood Pressure 94/41 Arterial Blood Pressure 119/47 Arterial Blood Pressure 118/48 Arterial Blood Pressure 121/52 Arterial Blood Pressure 113/49 Arterial Blood Pressure 118/49 Arterial Blood Pressure 110/46 Arterial Blood Pressure 140/55 Arterial Blood Pressure 77/31 Arterial Blood Pressure 131/53 GENERAL: Revealed 84-year-old female intubated, sedated, in no distress, on mechanical ventilation. HEENT: PERRLA, EOMI, no icterus, dry mucous membranes noted. Endotracheal tube and orogastric tube are intact. Head: Atraumatic, normocephalic CARDIOVASCULAR: S1 and S2 present. No murmurs, rubs, or gallops. PULMONARY: Diminished breath sounds at the bases, symmetrical chest expansion, no crackles nor rhonchi no wheezes. -ABDOMEN: Obese, Soft, nontender, nondistended, normoactive bowel sounds. No palpable organomegaly. Colostomy in right lower quadrant is noted. MUSCULOSKELETAL: No joint swelling or deformity. EXTREMITIES: No clubbing edema or cyanosis. NEUROLOGICAL: Could not be assessed, patient is sedated, intubated, on propofol. SKIN: No rashes. No petechiae Psychiatric could not be assessed. Results - Laboratory Findings CBC and BMP: 06/08/19 07:00 06/08/19 07:00 ABG ABG pH 7.14 (7.35-7.45) L* 06/08/19 11:42 ABG pCO2 49 mmHg (35-45) H 06/08/19 11:42 ABG pO2 186 mmHg (83-108) H 06/08/19 11:42 ABG O2 Saturation 99.5 % (94-97) H 06/08/19 11:42 PT/INR, D-dimer PT 10.3 sec (9.0-12.0) 06/08/19 07:00 INR 1.0 (<1.2) 06/08/19 07:00 Abnormal lab findings: Abnormal Labs 06/07/19 06/07/19 06/07/19 23:31 23:31 23:31 WBC 14.4 H RBC 3.75 L Hgb MCV 106.5 H MCHC 29.7 L Neutrophils # 9.9 H Monocytes # 1.2 H ABG pH ABG pCO2 ABG pO2 ABG HCO3 ABG Total CO2 ABG O2 Saturation Potassium 7.3 H* Chloride 111 H Carbon Dioxide 13 L BUN 61 H Creatinine 3.77 H Glucose 109 H POC Glucose (mg/dL) Plasma Lactic Acid Flo 2.4 H* Phosphorus 9.8 H* Total Protein 9.5 H Albumin Urine Appearance Urine Protein Urine Blood Ur Leukocyte Esterase Urine RBC Urine WBC Urine WBC Clumps Urine Mucus 06/08/19 06/08/19 06/08/19 02:18 06:45 07:00 WBC 15.0 H RBC 3.24 L Hgb 10.5 L MCV 107.3 H MCHC 30.1 L Neutrophils # 11.3 H Monocytes # 1.3 H ABG pH ABG pCO2 ABG pO2 ABG HCO3 ABG Total CO2 ABG O2 Saturation Potassium Chloride Carbon Dioxide BUN Creatinine Glucose POC Glucose (mg/dL) 112 H Plasma Lactic Acid Flo Phosphorus Total Protein Albumin Urine Appearance Turbid H Urine Protein 2+ H Urine Blood Moderate H Ur Leukocyte Esterase Large H Urine RBC 57 H Urine WBC >182 H Urine WBC Clumps Few H Urine Mucus Occasional H 06/08/19 06/08/19 06/08/19 07:00 07:11 08:44 WBC RBC Hgb MCV MCHC Neutrophils # Monocytes # ABG pH 7.07 L* 7.11 L* ABG pCO2 46 H 56 H ABG pO2 260 H 399 H ABG HCO3 13 L 18 L ABG Total CO2 15 L ABG O2 Saturation 99.7 H 99.9 H Potassium 6.5 H* Chloride 119 H Carbon Dioxide 14 L BUN 52 H Creatinine 2.63 H Glucose 109 H POC Glucose (mg/dL) Plasma Lactic Acid Flo Phosphorus Total Protein Albumin 3.2 L Urine Appearance Urine Protein Urine Blood Ur Leukocyte Esterase Urine RBC Urine WBC Urine WBC Clumps Urine Mucus 06/08/19 06/08/19 11:39 11:42 WBC RBC Hgb MCV MCHC Neutrophils # Monocytes # ABG pH 7.14 L* ABG pCO2 49 H ABG pO2 186 H ABG HCO3 17 L ABG Total CO2 18 L ABG O2 Saturation 99.5 H Potassium Chloride Carbon Dioxide BUN Creatinine Glucose POC Glucose (mg/dL) 198 H Plasma Lactic Acid Flo Phosphorus Total Protein Albumin Urine Appearance Urine Protein Urine Blood Ur Leukocyte Esterase Urine RBC Urine WBC Urine WBC Clumps Urine Mucus - Diagnostic Findings Chest x-ray: image reviewed (Right basilar atelectasis or right basilar pneumonia is suspected.. Endotracheal tube in proper position. Some component of interstitial edema is noted) Additional studies: CT of the abdomen and pelvis showed right-sided hydronephrosis with obstructing calculus in the distal right ureter, however when evaluated by urology did not feel that it was clinically significant. Assessment and Plan Assessment: Impression: Acute hypercapnic respiratory failure secondary to sepsis and septic shock, and severe metabolic acidosis Septic shock due to urinary tract infection. Right hydronephrosis, secondary to obstructing calculus, was not felt to be significant by urology on the case. Fluid overload, mostly iatrogenic, patient received at least 4 L of fluids in the ER. Hence had to be placed on Lasix drip. Very poor urine output in spite of Lasix drip. Acute kidney injury Hypotension secondary to sepsis and septic shock. Acute metabolic acidosis secondary to sepsis/septic shock History of hypertension. History of CVA. History of seizure disorder. Degenerative joint disease. GERD without esophagitis. Recommendation: Continue ventilatory support. Continue antibiotics Continue pressors GI and DVT prophylaxis. Nutritional support. Close renal monitoring may or may not require hemodialysis. Resume home meds. Hemodynamic monitoring, left radial arterial line was placed. We'll continue to follow. Critical care time is 45 minutes. Not including time spent on procedures Time with Patient: Greater than 30
[2019-06-08 14:31] LABS: Calcium 8.3 mg/dL (8.4-10.2); Potassium 4.4 mmol/L (3.5-5.1)
[2019-06-08] MEDS ORDERED: DIVALPROEX 250 MG TABLET.DR PO SCH (16:00)
--- NOTE | 2019-06-08 16:11 | P.GSCN ---
History of Present Illness Consult date: 06/08/19 Reason for Consult: UTI, Right ureteral calculus Requesting physician: Kanu Canales History of present illness: The patient iiog is an 84-year-old white female with history of multiple medical problems including hypertension, GERD, history of previous CVA, dementia, seizure disorder, restless leg syndrome, patient lives at a alf. She was brought into the ER last night with complaints of generalized weakness and altered mental status. She was found to be hypotensive and hyperkalemic with metabolically acidosis. She ws given fluid boluses, but her blood pressure failed to improve. She was admitted and transferred to the ICU. She has been treated with antibiotics, vasopressors, and fluid resuscitation. Her oliguria has improved. I am unable to obtain any urologic history from her. We have no office records pertaining to prior urologic care. Review of Systems ROS unobtainable: due to endotracheal tube Past Medical History Past Medical History: CVA/TIA, GERD/Reflux, Hypertension, Memory Impairment, Osteoarthritis (OA), Seizure Disorder, Thyroid Disorder Additional Past Medical History / Comment(s): restless leg syndrome, hemiplegia, hemiparesis, anemia, History of Any Multi-Drug Resistant Organisms: MRSA Year Discovered:: 2008 MDRO Source:: stool (per pt's daughter) Additional Past Surgical History / Comment(s): ileostomy Past Anesthesia/Blood Transfusion Reactions: No Reported Reaction Past Psychological History: Anxiety Smoking Status: Never smoker Past Alcohol Use History: Unable to Obtain Past Drug Use History: Unable to Obtain - Past Family History Father Family Medical History: Cancer Additional Family Medical History / Comment(s): lung CA Mother Family Medical History: Cancer Sister(s) Additional Family Medical History / Comment(s): emphysema Medications and Allergies Home Medications Medication Instructions Recorded Confirmed Type Acetaminophen Tab [Tylenol] 650 mg PO TID@0500,1300,2100 09/18/18 06/08/19 History Ascorbic Acid [Vitamin C] 1,000 mg PO BID 09/18/18 06/08/19 History Aspirin 81 mg PO HS 09/18/18 06/08/19 History Baclofen [Lioresal] 20 mg PO BID 09/18/18 06/08/19 History Cholecalciferol [Vitamin D3 (25 7,000 unit PO MO 09/18/18 06/08/19 History Mcg = 1000 Iu)] Divalproex [Depakote] 250 mg PO BID@0700,1600 09/18/18 06/08/19 History Ipratropium-Albuterol Nebulize 3 ml INHALATION RT-Q4H PRN 09/18/18 06/08/19 H istory [Duoneb 0.5 mg-3 mg/3 ml Soln] Levothyroxine Sodium [Synthroid] 50 mcg PO DAILY 09/18/18 06/08/19 History Lisinopril [Zestril] 5 mg PO DAILY 09/18/18 06/08/19 History Melatonin 9 mg PO HS PRN 09/18/18 06/08/19 History Methenamine Hippurate 1 gm PO BID 09/18/18 06/08/19 History Sertraline [Zoloft] 100 mg PO DAILY 09/18/18 06/08/19 History amLODIPine [Norvasc] 10 mg PO DAILY 09/18/18 06/08/19 History Fluticasone Nasal [place] [Flonase 2 spr EA NOSTRIL DAILY 06/08/19 06/08/19 History Nasal [place]] Lactulose 30 gm PO BID 06/08/19 06/08/19 History Lansoprazole [Prevacid] 15 mg PO DAILY 06/08/19 06/08/19 History Primidone [Mysoline] 25 mg PO HS 06/08/19 06/08/19 History rOPINIRole HCL [Requip] 0.5 mg PO TID@0700,1300,1900 06/08/19 06/08/19 History traMADol HCL [Ultram] 50 mg PO TID 06/08/19 06/08/19 History Allergies Allergy/AdvReac Type Severity Reaction Status Date / Time codeine AdvReac Unknown Verified 06/08/19 10:54 Surgical - Exam Vital Signs Temp Pulse Resp BP Pulse Ox 97.3 F L 87 24 79/38 95 06/07/19 23:15 06/07/19 23:15 06/07/19 23:15 06/07/19 23:15 06/07/19 23:15 - General well developed, well nourished - Abdomen Abdomen: soft, non tender, no guarding, no rigid, no rebound Results - Labs 06/08/19 07:00 06/08/19 14:10 Abnormal Lab Results - Last 24 Hours (Table) 06/07/19 06/07/19 06/07/19 Range/Units 23:31 23:31 23:31 WBC 14.4 H (3.8-10.6) k/uL RBC 3.75 L (3.80-5.40) m/uL MCV 106.5 H (80.0-100.0) fL MCHC 29.7 L (31.0-37.0) g/dL Neutrophils # 9.9 H (1.3-7.7) k/uL Monocytes # 1.2 H (0-1.0) k/uL ABG pH (7.35-7.45) ABG pCO2 (35-45) mmHg ABG pO2 (83-108) mmHg ABG HCO3 (21-25) mmol/L ABG Total CO2 (19-24) mmol/L ABG O2 Saturation (94-97) % Potassium 7.3 H* (3.5-5.1) mmol/L Chloride 111 H (98-107) mmol/L Carbon Dioxide 13 L (22-30) mmol/L BUN 61 H (7-17) mg/dL Creatinine 3.77 H (0.52-1.04) mg/dL Glucose 109 H (74-99) mg/dL POC Glucose (mg/dL) (75-99) mg/dL Plasma Lactic Acid Flo 2.4 H* (0.7-2.0) mmol/L Phosphorus 9.8 H* (2.5-4.5) mg/dL Total Protein 9.5 H (6.3-8.2) g/dL Urine Appearance (Clear) Urine Protein (Negative) Urine Blood (Negative) Ur Leukocyte Esterase (Negative) Urine RBC (0-5) /hpf Urine WBC (0-5) /hpf Urine WBC Clumps (None) /hpf Urine Mucus (None) /hpf 06/08/19 06/08/19 06/08/19 Range/Units 02:18 06:45 07:11 WBC (3.8-10.6) k/uL RBC (3.80-5.40) m/uL MCV (80.0-100.0) fL MCHC (31.0-37.0) g/dL Neutrophils # (1.3-7.7) k/uL Monocytes # (0-1.0) k/uL ABG pH 7.07 L* (7.35-7.45) ABG pCO2 46 H (35-45) mmHg ABG pO2 260 H (83-108) mmHg ABG HCO3 13 L (21-25) mmol/L ABG Total CO2 15 L (19-24) mmol/L ABG O2 Saturation 99.7 H (94-97) % Potassium (3.5-5.1) mmol/L Chloride (98-107) mmol/L Carbon Dioxide (22-30) mmol/L BUN (7-17) mg/dL Creatinine (0.52-1.04) mg/dL Glucose (74-99) mg/dL POC Glucose (mg/dL) 112 H (75-99) mg/dL Plasma Lactic Acid Flo (0.7-2.0) mmol/L Phosphorus (2.5-4.5) mg/dL Total Protein (6.3-8.2) g/dL Urine Appearance Turbid H (Clear) Urine Protein 2+ H (Negative) Urine Blood Moderate H (Negative) Ur Leukocyte Esterase Large H (Negative) Urine RBC 57 H (0-5) /hpf Urine WBC >182 H (0-5) /hpf Urine WBC Clumps Few H (None) /hpf Urine Mucus Occasional H (None) /hpf Diabetes panel 06/07/19 Range/Units 23:31 Sodium 138 (137-145) mmol/L Potassium 7.3 H* (3.5-5.1) mmol/L Chloride 111 H (98-107) mmol/L Carbon Dioxide 13 L (22-30) mmol/L BUN 61 H (7-17) mg/dL Creatinine 3.77 H (0.52-1.04) mg/dL Glucose 109 H (74-99) mg/dL Calcium 9.4 (8.4-10.2) mg/dL AST 23 (14-36) U/L ALT 14 (4-34) U/L Alkaline Phosphatase 123 (38-126) U/L Total Protein 9.5 H (6.3-8.2) g/dL Albumin 4.2 (3.5-5.0) g/dL Thyroid panel 06/07/19 Range/Units 23:31 TSH 1.680 (0.465-4.680) mIU/L Calcium panel 06/07/19 Range/Units 23:31 Calcium 9.4 (8.4-10.2) mg/dL Phosphorus 9.8 H* (2.5-4.5) mg/dL Albumin 4.2 (3.5-5.0) g/dL Pituitary panel 06/07/19 Range/Units 23:31 Sodium 138 (137-145) mmol/L Potassium 7.3 H* (3.5-5.1) mmol/L Chloride 111 H (98-107) mmol/L Carbon Dioxide 13 L (22-30) mmol/L BUN 61 H (7-17) mg/dL Creatinine 3.77 H (0.52-1.04) mg/dL Glucose 109 H (74-99) mg/dL Calcium 9.4 (8.4-10.2) mg/dL TSH 1.680 (0.465-4.680) mIU/L Adrenal panel 06/07/19 Range/Units 23:31 Sodium 138 (137-145) mmol/L Potassium 7.3 H* (3.5-5.1) mmol/L Chloride 111 H (98-107) mmol/L Carbon Dioxide 13 L (22-30) mmol/L BUN 61 H (7-17) mg/dL Creatinine 3.77 H (0.52-1.04) mg/dL Glucose 109 H (74-99) mg/dL Calcium 9.4 (8.4-10.2) mg/dL Total Bilirubin 0.6 (0.2-1.3) mg/dL AST 23 (14-36) U/L ALT 14 (4-34) U/L Alkaline Phosphatase 123 (38-126) U/L Total Protein 9.5 H (6.3-8.2) g/dL Albumin 4.2 (3.5-5.0) g/dL - Imaging CT scan - abdomen: report reviewed, image reviewed Assessment and Plan (1) UTI (urinary tract infection) Current Visit: Yes Status: Acute Code(s): N39.0 - URINARY TRACT INFECTION, SITE NOT SPECIFIED SNOMED Code(s): 20369631 (2) Right ureteral calculus Current Visit: Yes Status: Acute Code(s): N20.1 - CALCULUS OF URETER SNOMED Code(s): 75173445 Plan: The patient has obvious sepsis, possibly of urinary origin. She is being treated with Zosyn, pending a urine culture result. I have reviewed both the CT scan and renal ultrasound. She appears to have mild right hydronephrosis. The radiologist report suggests the presence of a right distal ureteral calculus, though this is difficult to determine given that the patient has multiple pelvic phleboliths. I have discussed the case with Dr. Canales. She will continue to receive IV antibiotics. If at any point it appears that she is not responding to treatment as expected, we can proceed with cystoscopy, right retrograde pyelogram, and possible right ureteral stent insertion. I do not believe that there is sufficient hydronephrosis to allow for nephrostomy tube placement.
[2019-06-08] MEDS: DIVALPROEX SPRINKLE 125 MG CAP.SPRINK PO SCH (16:28)
--- NOTE | 2019-06-08 16:59 | PCN ---
PROCEDURE NOTE OPERATIVE REPORT: Placement of left radial arterial line. PREOPERATIVE DIAGNOSIS: Acute respiratory failure. POSTOP DIAGNOSIS: Acute respiratory failure. ANESTHESIA: None deployed. PROCEDURE IN DETAIL: The left wrist was prepared in a sterile fashion and drapes were applied. The left radial artery was palpated easily cannulated, and a guidewire was placed. A Cook catheter was inserted over the guidewire, and the guidewire was removed. Good blood flow and good waveform noted, no evidence of any immediate complications. The line was secured using 3.0 silk sutures. MMODL / IJN: [id number] /
[2019-06-08 18:28] LABS: Glucose,Whole Blood 134 mg/dL (75-99)
[2019-06-08] MEDS ORDERED: PRIMIDONE 25 MG TAB PO SCH (21:00)
[2019-06-08] MEDS: ASPIRIN 81 MG PO SCH (21:30)
[2019-06-09 00:08] LABS: Glucose,Whole Blood 118 mg/dL (75-99)
[2019-06-09 04:15] LABS: ABG Base Excess -0.3 mmol/L; ABG HCO3 23 mmol/L (21-25); ABG Oxygen Saturation 98.8 % (94-97); ABG PCO2 32 mmHg (35-45); ABG PH 7.47 (7.35-7.45); ABG PO2 100 mmHg (83-108); ABG TCO2 24 mmol/L (19-24)
[2019-06-09 04:21] LABS: HCT 22.7 % (34.0-46.0); MCH 31.9 pg (25.0-35.0); MCHC 31.9 g/dL (31.0-37.0); Mean Platelet Volume 12.5; RBC 2.27 m/uL (3.80-5.40); RDW 13.8 % (11.5-15.5); WBC 6.9 k/uL (3.8-10.6)
[2019-06-09 04:25] LABS: HGB 7.2 gm/dL (11.4-16.0); MCV 100.1 fL (80.0-100.0)
[2019-06-09 04:30] LABS: Albumin 2.7 g/dL (3.5-5.0); Calcium 8.4 mg/dL (8.4-10.2); Magnesium 1.6 mg/dL (1.6-2.3); Phosphorus 3.1 mg/dL (2.5-4.5); Potassium 3.9 mmol/L (3.5-5.1); Total Bilirubin 0.3 mg/dL (0.2-1.3); Total Protein 6.4 g/dL (6.3-8.2)
[2019-06-09 04:39] LABS: Allen Test Performed? no
[2019-06-09 04:51] LABS: Band Neutrophils % 2 %; Eosinophils # (M) 0.21 k/uL (0-0.7); Lymphocytes # (M) 0.69 k/uL (1.0-4.8); Monocytes # (M) 1.66 k/uL (0-1.0); Myelocytes # (M) 0.07 k/uL (0); Myelocytes % 1 %; Neutrophils % (M) 60 %; Nucleated Red Blood Cells 0 /100 WBC (0-0); Total Cells Counted 200
[2019-06-09 04:52] LABS: Platelet Count 105 k/uL (150-450)
[2019-06-09] MEDS ORDERED: Potassium Replacement Protocol 1 EACH MISC MISCELLANE PRN (05:06)
[2019-06-09] MEDS: LEVOTHYROXINE 50 MCG TAB PO SCH (05:59)
[2019-06-09] MEDS: DIVALPROEX SPRINKLE 125 MG CAP.SPRINK PO SCH ×2 (05:59→16:01)
[2019-06-09] MEDS ORDERED: POTASSIUM BICARBONATE/CIT AC 20 MEQ TABLET.EFF NG-TUBE SCH (06:00)
[2019-06-09 06:20] LABS: Glucose,Whole Blood 133 mg/dL (75-99)
[2019-06-09] MEDS: PROPOFOL 1,000 MG in EMPTY BAG 1 BAG IV SCH ×4 (06:23→18:45)
[2019-06-09] MEDS: NOREPINEPHRINE 32 MG in SODIUM CHLORIDE 0.9% 218 ML IV SCH (07:03)
--- NOTE | 2019-06-09 08:07 | XR ---
EXAMINATION TYPE: XR chest 1V portable DATE OF EXAM: 06/09/2019 COMPARISON: Prior chest x-ray 06/08/2019 HISTORY: Intubated TECHNIQUE: Single frontal view of the chest is obtained. FINDINGS: Endotracheal tube is overlying the tracheal air column, there is an NG tube which is cours ing towards the stomach, distal tip not included on the exam. Epicardial pacing leads are suspected. Right jugular central venous catheter shows the distal tip overlying the right atrium. No evident pne umothorax. Patient is rotated. Heart size is likely stable. Lung volumes are low. There are overlying cardiac leads. Subsegmental basilar atelectatic changes are present. Prominence of the pulmonary art darcy could be indicative of pulmonary artery hypertension. Aorta is dense. IMPRESSION: Expiratory rotated exam. There may be some improvement in volume status, aeration. Proba ble basilar atelectatic changes. Additional findings above.
[2019-06-09] MEDS: DEXTROSE 5% IN WATER 1,000 ML with SODIUM BICARB (1 MEQ/ML) 150 ML IV SCH (08:10)
[2019-06-09] MEDS: PIPERACILLIN-TAZOBACTAM 3.375 GM in SODIUM CHLORIDE 0.9% 100 ML IVPB SCH ×2 (08:11→16:01)
[2019-06-09] MEDS: CHLORHEXIDINE GLUCONATE 15 ML CUP MUCOUS MEM SCH ×2 (08:11→21:10)
[2019-06-09] MEDS: PANTOPRAZOLE 40 MG/10 ML VIAL IV SCH (08:11)
[2019-06-09] MEDS: IPRATROPIUM-ALBUTEROL 3 ML NEB INHALATION PRN ×2 (08:22→12:23)
[2019-06-09] MEDS: SODIUM CHLORIDE 0.9% 1,000 ML IV SCH ×2 (08:30→22:38)
--- NOTE | 2019-06-09 08:59 | P.PN ---
Subjective Patient is seen in follow-up for acute kidney injury and hyperkalemia. Renal function is improved. Potassium level is normal. She is currently maintained on bicarb drip. Acidosis has improved. Maintained on Levophed. Vital signs are stable. General: The patient appeared well nourished and normally developed. HEENT: Head exam is unremarkable. Neck is without jugular venous distension. Intubated. LUNGS: Breath sounds decreased. HEART: Rate and Rhythm are regular. First and second heart sounds normal. No murmurs, rubs or gallops. ABDOMEN: Abdominal exam reveals normal bowel sounds. Non-tender and non- distended. No evidence of peritonitis. EXTREMITITES: No clubbing, cyanosis, or edema. Objective - Vital Signs Vital signs: Vital Signs Temp 98.7 F 06/09/19 04:00 Pulse 95 06/09/19 08:36 Resp 14 06/09/19 08:30 BP 142/59 06/09/19 08:30 Pulse Ox 97 06/09/19 08:30 Intake & Output 06/08/19 06/09/19 06/09/19 18:59 06:59 18:59 Intake Total 2298.104 1681.215 289.873 Output Total 3105 1650 360 Balance -806.896 31.215 -70.127 Weight 84.5 kg 97.8 kg Intake: IV 1830 1130 230 Ampicillin-Sulbactam 3 gm 100 100 In Sodium Chloride 0.9% 100 ml @ 200 mls/hr IVPB ONCE STA Rx#:[id number] Dextrose 10 % in Water 250 250 ml @ 999 mls/hr IV ONCE ONE Rx#:[id number] Dextrose 5% in Water 1, 350 600 100 000 ml @ 50 mls/hr IV . Q23H [facility] with Sodium Bicarb (1 Meq/ml) 150 ml Rx#:[id number] Furosemide 100 mg In 60 Sodium Chloride 0.9% 90 ml @ 10 MG/HR 10 mls/hr IV .Q10H [facility] Rx#: [id number] Piperacillin-Tazobactam 3 100 100 100 .375 gm In Sodium Chloride 0.9% 100 ml @ 25 mls/hr IVPB Q12HR [facility] Rx #:[id number] Sodium Chloride 0.9% 1, 970 330 30 000 ml @ 30 mls/hr IV . Q24H [facility] Rx#:[id number] Intake, IV Titration 208.104 220.215 5.873 Amount Norepinephrine 32 mg In 34.673 30.096 5.873 Sodium Chloride 0.9% 218 ml @ 0.05 MCG/KG/MIN 1.98 mls/hr IV .Q24H [facility] Rx#: [id number] Propofol 1,000 mg In 173.431 190.119 Empty Bag 1 bag @ Titrate IV .Q0M [facility] Rx#: [id number] Tube Feeding 60 241 54 Other 200 90 Output: Gastric Drainage 75 Urine 3105 1505 160 Stool 70 200 Other: Voiding Method Indwelling Catheter Indwelling Catheter ABP, PAP, CO, CI - Last Documented Arterial Blood Pressure 175/70 - Labs CBC & Chem 7: 06/09/19 04:10 06/09/19 04:10 Labs: Abnormal Lab Results - Last 24 Hours (Table) 06/08/19 06/08/19 06/08/19 Range/Units 11:39 11:42 14:10 RBC (3.80-5.40) m/uL Hgb (11.4-16.0) gm/dL Hct (34.0-46.0) % MCV (80.0-100.0) fL Plt Count (150-450) k/uL Lymphocytes # (Manual) (1.0-4.8) k/uL Monocytes # (Manual) (0-1.0) k/uL Myelocytes # (Manual) (0) k/uL ABG pH 7.14 L* (7.35-7.45) ABG pCO2 49 H (35-45) mmHg ABG pO2 186 H (83-108) mmHg ABG HCO3 17 L (21-25) mmol/L ABG Total CO2 18 L (19-24) mmol/L ABG O2 Saturation 99.5 H (94-97) % Chloride 117 H (98-107) mmol/L Carbon Dioxide 16 L (22-30) mmol/L BUN 50 H (7-17) mg/dL Creatinine 1.65 H (0.52-1.04) mg/dL Glucose 147 H (74-99) mg/dL POC Glucose (mg/dL) 198 H (75-99) mg/dL Calcium 8.3 L (8.4-10.2) mg/dL Albumin (3.5-5.0) g/dL 06/08/19 06/08/19 06/09/19 Range/Units 18:17 23:57 04:10 RBC (3.80-5.40) m/uL Hgb (11.4-16.0) gm/dL Hct (34.0-46.0) % MCV (80.0-100.0) fL Plt Count (150-450) k/uL Lymphocytes # (Manual) (1.0-4.8) k/uL Monocytes # (Manual) (0-1.0) k/uL Myelocytes # (Manual) (0) k/uL ABG pH (7.35-7.45) ABG pCO2 (35-45) mmHg ABG pO2 (83-108) mmHg ABG HCO3 (21-25) mmol/L ABG Total CO2 (19-24) mmol/L ABG O2 Saturation (94-97) % Chloride 114 H (98-107) mmol/L Carbon Dioxide (22-30) mmol/L BUN 40 H (7-17) mg/dL Creatinine (0.52-1.04) mg/dL Glucose 134 H (74-99) mg/dL POC Glucose (mg/dL) 134 H 118 H (75-99) mg/dL Calcium (8.4-10.2) mg/dL Albumin 2.7 L (3.5-5.0) g/dL 06/09/19 06/09/19 06/09/19 Range/Units 04:10 04:14 06:09 RBC 2.27 L (3.80-5.40) m/uL Hgb 7.2 L D (11.4-16.0) gm/dL Hct 22.7 L (34.0-46.0) % MCV 100.1 H D (80.0-100.0) fL Plt Count 105 L (150-450) k/uL Lymphocytes # (Manual) 0.69 L (1.0-4.8) k/uL Monocytes # (Manual) 1.66 H (0-1.0) k/uL Myelocytes # (Manual) 0.07 H (0) k/uL ABG pH 7.47 H (7.35-7.45) ABG pCO2 32 L (35-45) mmHg ABG pO2 (83-108) mmHg ABG HCO3 (21-25) mmol/L ABG Total CO2 (19-24) mmol/L ABG O2 Saturation 98.8 H (94-97) % Chloride (98-107) mmol/L Carbon Dioxide (22-30) mmol/L BUN (7-17) mg/dL Creatinine (0.52-1.04) mg/dL Glucose (74-99) mg/dL POC Glucose (mg/dL) 133 H (75-99) mg/dL Calcium (8.4-10.2) mg/dL Albumin (3.5-5.0) g/dL Microbiology - Last 24 Hours (Table) 06/07/19 23:45 Blood Culture - Preliminary Blood No Growth after 24 hours 06/08/19 02:18 Urine Culture - Preliminary Urine,Clean Catch Assessment and Plan Plan: Assessment: 1. Acute kidney injury mostly prerenal secondary to hypotension. Improved. Mild right-sided hydronephrosis noted on ultrasound. 2. Hyperkalemia secondary to acute kidney injury and metabolic acidosis. She was also taking lisinopril outpatient. Improved. 3. Metabolic acidosis secondary to acute kidney injury. Better. 4. Septic shock most likely secondary to UTI. Currently on Levophed. 5. Acute hypercapnic respiratory failure. Currently intubated. Plan: Discontinue bicarbonate drip. Start normal saline at 50 mL an hour. Wean Levophed. Maintain tube feeding. Wean FiO2. Follow-up cultures.
[2019-06-09] MEDS ORDERED: ENOXAPARIN 30 MG/0.3 ML SYRINGE SQ SCH (09:00)
--- NOTE | 2019-06-09 10:45 | PN ---
PROGRESS NOTE PULMONARY/CRITICAL CARE PROGRESS NOTE: DATE OF SERVICE: June 09, 2019. CRITICAL CARE TIME: 34 minutes. This is an 84-year-old female who was admitted on the with acute renal failure, urinary tract infection, sepsis, and depressed level of consciousness. She apparently then developed acute hypercapnic respiratory failure secondary to sepsis and septic shock with severe metabolic acidosis and required intubation and mechanical ventilation on the 08 of June. My partner, Dr. Canales, did a consultation on her yesterday. Please refer to his note for more specific details. Nonetheless, the patient is currently still in the ICU obviously on the ventilator. She now is on the volume assist-control mode with a set rate of 20, and breathing at 20 times a minute, tidal volume 450, FiO2 of 35%, PEEP of 5. Blood gases show a pO2 of 100, pCO2 of 32, and a pH of 7.47. This is consistent with normoxemia and mild respiratory alkalosis. The patient is on saline at 50 mL an hour, Levophed at 5 mcg/minute and Diprivan at 40 mcg/kg per minute. She is also getting Vital high-protein at 27 with a goal of 27 mL an hour. She looks relatively stable. Labs, x-rays and medications were all reviewed. The patient will get a daily interruption of sedation and spontaneous breathing trial today at 5 of pressure support and 5 of CPAP. She may or may not be ready for weaning and extubation. In addition to acute hypercapnic respiratory failure, the patient has a history of sepsis with septic shock and severe metabolic acidosis, sepsis secondary to urinary tract infection, right hydronephrosis secondary to obstructing calculi, fluid overload, acute kidney injury, hypotension, hypertension by history, CVA, seizure disorder, DJD, and GERD without esophagitis. When seen by Dr. Canales yesterday, he recommended ongoing ventilatory support, antibiotics, pressors, GI, DVT prophylaxis, and nutritional support. PHYSICAL EXAMINATION: Currently, she is stable. VITAL SIGNS: Vital signs are reviewed. Temperature 99.8, heart rate 80, respiratory rate 20, blood pressure 147/65, mean 92, saturations are 100% on 35% and 5 of PEEP. GENERAL: Appears in no acute distress. Currently sedated. HEENT: Examination is grossly unremarkable. There is an orally placed endotracheal tube and NG tube. NECK: Supple. Full range of motion. No adenopathy or thyromegaly. Neck veins are flat. CARDIOVASCULAR: Examination reveals regular rhythm and rate. Heart sounds are distant. Heart rate is 80. S1, S2 normal. No murmur. LUNGS: Reveal coarse bilateral rhonchi. No wheezes or crackles. Breath sounds equal. ABDOMEN: Soft. Bowel sounds are noted. EXTREMITIES: Are intact. Minimal edema. SKIN: Without rash. NEUROLOGIC: Examination is difficult to assess given her current level of sedation. Microbiologic studies are thus far negative, that includes both urine and blood. Chest x-ray shows some improvement in volume status with bibasilar atelectatic changes. LAB DATA: Lab data is reviewed. White count 6.9, hemoglobin 7.2, hematocrit 22.7, platelet count is a 105,000. Sodium 143, potassium 3.9, chloride 114, CO2 of 23. Anion gap is 6. BUN and creatinine were 40 and 0.95. The rest of the labs look okay. MEDICATIONS: Current medications are reviewed. The patient is currently on aspirin, Peridex, Depakote Sprinkle, Lovenox, DuoNeb, levothyroxine, Ativan, Narcan, Levophed at 5 mcg/minute, Protonix IV, Zosyn, potassium replacement therapy, Mysoline, and propofol. ASSESSMENT: 1. Acute hypercapnic respiratory failure secondary to sepsis with septic shock and severe metabolic acidosis, from a urinary tract infection, requiring intubation and mechanical ventilation on June 08, 2019. 2. Septic shock secondary to urinary tract infection, cultures currently pending. 3. Right hydronephrosis, secondary to obstructing calculus, Urology consulted. 4. Fluid overload, status post 4 L of fluid in the emergency room. 5. Acute kidney injury. 6. Hypotension, secondary to sepsis. 7. Acute metabolic acidosis, secondary to sepsis/septic shock. 8. History of benign essential hypertension. 9. History of cerebrovascular accident. 10.History of seizure disorder. 11.Degenerative joint disease. 12.Gastroesophageal reflux disease with esophagitis. 13.Anemia. 14.Thrombocytopenia. PLAN: The patient is currently on Zosyn for possible urinary tract infection/urosepsis. Medications are reviewed. Will discontinue the Ativan. The patient currently is on GI and DVT prophylaxis. We will continue to follow closely. The patient is on updrafts q.4 hours around the clock. We will do a daily interruption of sedation and a spontaneous breathing trial today. The patient may not be ready. We will continue to follow. Tube feeds are at goal. Prognosis is guarded. CRITICAL CARE TIME: 34 minutes. ZOHAIBL / IJN: [id number] /
[2019-06-09 12:13] LABS: Glucose,Whole Blood 112 mg/dL (75-99)
[2019-06-09 13:18] LABS: Hepatitis B Surface AB- Quant 3.5 mIU/mL; Hepatitis B Surface Antibody Non-Reactive (Non-Reactive); Hepatitis B Surface Antigen Non-Reactive (Non-Reactive)
[2019-06-09 13:20] LABS: Glucose,Whole Blood 127 mg/dL (75-99)
--- NOTE | 2019-06-09 15:41 | P.OP ---
Date of Procedure: 06/09/19 Preoperative Diagnosis: Sepsis from a urinary tract infection complicated by right hydronephrosis Postoperative Diagnosis: Sepsis from a urinary tract infection complicated by right hydronephrosis Procedure(s) Performed: Cystoscopy and placement of right ureteral catheter Anesthesia: none Surgeon: Stephon Evans Estimated Blood Loss (ml): 0 Pathology: none sent Condition: stable Disposition: ICU Indications for Procedure: The patient is an 84-year-old female admitted with hypotension which has been felt to be related to a urinary tract infection. Patient is currently intubated and on a ventilator. Computed tomography scan identified right hydronephrosis with what appears to be a dilated right ureter down into the region of the pelvis. At that level there appears to be at least 3 ureteral calculi measuring up to 6 or 7 mm in diameter. Placement of a right ureteral catheter is planned to ensure the right kidney is draining adequately. Description of Procedure: The patient was in her ICU bed in the supine position. She was intubated and on the ventilator. The perineum was prepped with iodoform solution and draped in a sterile fashion. The 16-Moroccan flexible cystoscope was passed through the urethra and into the bladder. There was inflammation present within the bladder but no evidence of tumor, foreign body or calculus. The right ureteral orifice was identified with some difficulty. A straight 0.035 Glidewire was advanced t hrough the right ureteral orifice and proximally up to the region of the renal pelvis. The cystoscope was withdrawn leaving the Glidewire in place. An attempt was made to pass an 8-Moroccan open-ended ureteral catheter over the Glidewire at this proved difficult initially. The Glidewire was replaced with a 0.038 straight Glidewire and with this it was easy to pass the ureteral catheter up to the region of the renal pelvis. Blood-tinged urine drained through the ureteral catheter following removal of the Glidewire. An 18-[place]occan Arroyo catheter was inserted. The ureteral catheter was inserted into the hub of the Arroyo catheter and drained through a common drainage tube. The ureteral catheter was secured to the Arroyo catheter with 2-0 silk. The patient tolerated procedure well.
[2019-06-09] MEDS: IPRATROPIUM-ALBUTEROL 3 ML NEB INHALATION SCH ×3 (15:54→23:23)
--- NOTE | 2019-06-09 17:28 | P.PN ---
Subjective This is a pleasant 84 years old female with past medical history of CVA with hemiparesis , GERD, hypertension, memory impairment, osteoarthritis , seizure disorder, restless leg syndrome. On the presentation patient was attended and could not provide information. She was acidotic and she got intubated immediately. Information taken from the staff and records. Patient vitals this morning are more stable. On presentation patient was hypertensive with blood pressure 79/38. Leukocytosis with the [place] of 15 K, Improving 10.5, Patient Was Acidotic with pH is 7.0 and 7.1, potassium is elevated at 7.3 and 6.5, creatinine elevated at 3.7 and 2.6. Troponin and liver enzymes are not elevated, proBNP is 379, TSH 1.6. Influenza is negative. Chest x-ray: No acute process.ankle x-ray: No fracture. CT of the brain: No acute process, cerebral atrophy per radiologist. CT of the abdomen and pelvis with no contrast showing right-sided hydronephrosis with obstructing calculus, right lower quadrant ileostomy, no bowel obstruction. On admission patient had several boluses of IV fluids, continue therapy for hyperkalemia per protocol. She was started on ceftriaxone and Unasyn. Also 4 Lovenox for DVT prophylaxis. She is making urine, 30 mL/h 06/09/19 pt remains in the ICU, she is improving , her vitals are stable, and better, pt is needing less levophed today, and it possible it could be stopped if pt did not need propofol because she remains intubated now, however it felt pt could come out of vent soon, and she keep improving, WBC is back to normal, hemoglobin with some dropping 10.2 down to 7.2, her acidosis is improved. ceratinine within normal limites , rest of BMP is unremarkable, sugar controlled, urologist did cystocopy showing no stone or tumor. Urine culure is growing gram negative bacilli ROS: no applicable Active Medications Generic Name Dose Route Start Last Admin Trade Name Freq PRN Reason Stop Dose Admin Albuterol/Ipratropium 3 ml 06/09/19 16:00 06/09/19 15:54 Duoneb 0.5 Mg-3 Mg/3 Ml Soln INHALATION 3 ml RT-Q4H [facility] Administration Aspirin 81 mg 06/08/19 21:00 06/08/19 21:30 Aspirin PO 81 mg HS [facility] Administration Chlorhexidine Gluconate 15 ml 06/08/19 09:00 06/09/19 08:11 Peridex MUCOUS MEM 15 ml BID [facility] Administration Divalproex Sodium 250 mg 06/08/19 16:00 06/09/19 16:01 Depakote Sprinkle PO 250 mg BID@0700,1600 [facility] Administration Enoxaparin Sodium 40 mg 06/10/19 09:00 Lovenox SQ DAILY [facility] Sodium Chloride 1,000 mls @ 30 mls/hr 06/08/19 04:15 06/08/19 21:31 Saline 0.9% IV 30 mls/hr .Q24H [facility] Administration Norepinephrine Bitartrate 32 250 mls @ 1.98 mls/hr 06/08/19 04:15 06/09/19 13:52 mg/ Sodium Chloride IV 0.07 mcg/kg/min .Q24H [facility] 2.773 mls/hr Titration Protocol 0.05 MCG/KG/MIN Propofol 1,000 mg/ IV Solution 100 mls @ 0 mls/hr 06/08/19 08:00 06/09/19 14:33 IV 40 mcg/kg/min .Q0M [facility] 23.472 mls/hr Administration Protocol Titrate Sodium Chloride 1,000 mls @ 50 mls/hr 06/09/19 08:30 06/09/19 08:30 Saline 0.9% IV 50 mls/hr .Q20H [facility] Administration Piperacillin Sod/Tazobactam 100 mls @ 25 mls/hr 06/09/19 16:00 06/09/19 16:01 Sod 3.375 gm/ Sodium Chloride IVPB 25 mls/hr Q8HR [facility] Administration Levothyroxine Sodium 50 mcg 06/09/19 06:30 06/09/19 05:59 Synthroid PO 50 mcg DAILY@0630 [facility] Administration Miscellaneous Information 1 each 06/09/19 05:06 Potassium Per Protocol MISCELLANE DAILY PRN Per Protocol Protocol Naloxone HCl 0.2 mg 06/08/19 04:08 Narcan IV Q2M PRN Opioid Reversal Pantoprazole Sodium 40 mg 06/08/19 09:00 06/09/19 08:11 Protonix IV 40 mg DAILY [facility] Administration Primidone 25 mg 06/08/19 22:21 Mysoline PO HS [facility] Objective - Vital Signs Vital signs: Vital Signs Temp 99.4 F 06/09/19 13:30 Pulse 70 06/09/19 16:30 Resp 20 06/09/19 16:30 BP 100/52 06/09/19 16:30 Pulse Ox 96 06/09/19 16:30 Intake & Output 06/08/19 06/09/19 06/09/19 18:59 06:59 18:59 Intake Total 2298.104 8235.732 1459.677 Output Total 3105 1650 1035 Balance -806.896 31.215 174.677 Weight 84.5 kg 97.8 kg Intake: IV 1830 1130 630 Ampicillin-Sulbactam 3 gm 100 100 In Sodium Chloride 0.9% 100 ml @ 200 mls/hr IVPB ONCE STA Rx#:[id number] Dextrose 10 % in Water 250 250 ml @ 999 mls/hr IV ONCE ONE Rx#:[id number] Dextrose 5% in Water 1, 350 600 100 000 ml @ 50 mls/hr IV . Q23H [facility] with Sodium Bicarb (1 Meq/ml) 150 ml Rx#:[id number] Furosemide 100 mg In 60 Sodium Chloride 0.9% 90 ml @ 10 MG/HR 10 mls/hr IV .Q10H [facility] Rx#: [id number] Piperacillin-Tazobactam 3 100 100 100 .375 gm In Sodium Chloride 0.9% 100 ml @ 25 mls/hr IVPB Q12HR [facility] Rx #:[id number] Sodium Chloride 0.9% 1, 970 330 30 000 ml @ 30 mls/hr IV . Q24H [facility] Rx#:[id number] Sodium Chloride 0.9% 1, 400 000 ml @ 50 mls/hr IV . Q20H [facility] Rx#:[id number] Intake, IV Titration 208.104 220.215 180.677 Amount Norepinephrine 32 mg In 34.673 30.096 16.492 Sodium Chloride 0.9% 218 ml @ 0.05 MCG/KG/MIN 1.98 mls/hr IV .Q24H [facility] Rx#: [id number] Propofol 1,000 mg In 173.431 190.119 164.185 Empty Bag 1 bag @ Titrate IV .Q0M [facility] Rx#: [id number] Tube Feeding 60 241 309 Other 200 90 90 Output: Gastric Drainage 75 Urine 3105 1505 635 Stool 70 400 Other: Voiding Method Indwelling Catheter Indwelling Catheter Indwelling Catheter ABP, PAP, CO, CI - Last Documented Arterial Blood Pressure 93/44 - Exam -GENERAL: The patient is intubated and sedated HEENT: Pupils are round and equally reacting to light. EOMI. No scleral icterus. No conjunctival pallor. Normocephalic, atraumatic. No pharyngeal erythema. No thyromegaly. CARDIOVASCULAR: S1 and S2 present. No murmurs, rubs, or gallops. PULMONARY: Chest is clear to auscultation, no wheezing or crackles. -ABDOMEN: Soft, nontender, nondistended, normoactive bowel sounds. No palpable organomegaly. Arroyo catheter is in place MUSCULOSKELETAL: No joint swelling or deformity. EXTREMITIES: No cyanosis, clubbing, or pedal edema. NEUROLOGICAL: Gross neurological examination did not reveal any focal deficits. SKIN: No rashes. No petechiae - Labs CBC & Chem 7: 06/09/19 04:10 06/09/19 04:10 Labs: Abnormal Lab Results - Last 24 Hours (Table) 06/08/19 06/08/19 06/09/19 Range/Units 18:17 23:57 04:10 RBC (3.80-5.40) m/uL Hgb (11.4-16.0) gm/dL Hct (34.0-46.0) % MCV (80.0-100.0) fL Plt Count (150-450) k/uL Lymphocytes # (Manual) (1.0-4.8) k/uL Monocytes # (Manual) (0-1.0) k/uL Myelocytes # (Manual) (0) k/uL ABG pH (7.35-7.45) ABG pCO2 (35-45) mmHg ABG O2 Saturation (94-97) % Chloride 114 H (98-107) mmol/L BUN 40 H (7-17) mg/dL Glucose 134 H (74-99) mg/dL POC Glucose (mg/dL) 134 H 118 H (75-99) mg/dL Albumin 2.7 L (3.5-5.0) g/dL 06/09/19 06/09/19 06/09/19 Range/Units 04:10 04:14 06:09 RBC 2.27 L (3.80-5.40) m/uL Hgb 7.2 L D (11.4-16.0) gm/dL Hct 22.7 L (34.0-46.0) % MCV 100.1 H D (80.0-100.0) fL Plt Count 105 L (150-450) k/uL Lymphocytes # (Manual) 0.69 L (1.0-4.8) k/uL Monocytes # (Manual) 1.66 H (0-1.0) k/uL Myelocytes # (Manual) 0.07 H (0) k/uL ABG pH 7.47 H (7.35-7.45) ABG pCO2 32 L (35-45) mmHg ABG O2 Saturation 98.8 H (94-97) % Chloride (98-107) mmol/L BUN (7-17) mg/dL Glucose (74-99) mg/dL POC Glucose (mg/dL) 133 H (75-99) mg/dL Albumin (3.5-5.0) g/dL 06/09/19 06/09/19 Range/Units 12:02 13:10 RBC (3.80-5.40) m/uL Hgb (11.4-16.0) gm/dL Hct (34.0-46.0) % MCV (80.0-100.0) fL Plt Count (150-450) k/uL Lymphocytes # (Manual) (1.0-4.8) k/uL Monocytes # (Manual) (0-1.0) k/uL Myelocytes # (Manual) (0) k/uL ABG pH (7.35-7.45) ABG pCO2 (35-45) mmHg ABG O2 Saturation (94-97) % Chloride (98-107) mmol/L BUN (7-17) mg/dL Glucose (74-99) mg/dL POC Glucose (mg/dL) 112 H 127 H (75-99) mg/dL Albumin (3.5-5.0) g/dL Microbiology - Last 24 Hours (Table) 06/08/19 02:18 Urine Culture - Preliminary Urine,Clean Catch Gram Neg Bacilli 06/07/19 23:45 Blood Culture - Preliminary Blood No Growth after 24 hours Assessment and Plan Assessment: Septic shock secondary to UTI Right hydronephrosis secondary to obstructing calculus Fluid overload and pulmonary congestion, could be due to renal failure Acute kidney injury and hyperkalemia, improving. However she is at-risk of hemodialysis Hypotension, on the presentation. Improved With Levothroid Elevated lactic acid came back to normal GERD Hypertension Memory impairment Osteoarthritis Seizure disorder Restless leg syndrome history of CVA with hemiparesis Plan: this is a pleasant 84 years old female who presents with septic shock secondary to UTI and obstructive right side Stone and hydronephrosis. Continue with a ntibiotics and fluids. Regular to change antibiotics to Zosyn. Follow-up recommendation by critical care team and urology. Follow-up recommendation by medical instructor. [facility] Labs and medication were reviewed. monitor hemoglobin. Continue same treatment. Continue with symptomatic treatment. Resume home medication. Monitor lytes and vitals. DVT and GI prophylaxis. Further recommendations of the clinical course of the patient DVT prophylaxis: Subcutaneous Lovenox GI Prophylaxis: Pepcid Prognosis is guarded
[2019-06-09 18:23] LABS: Glucose,Whole Blood 127 mg/dL (75-99)
[2019-06-09 20:23] LABS: Basophils # (A) 0.1 k/uL (0-0.2); Basophils % (A) 1 %; Eosinophils # (A) 0.4 k/uL (0-0.7); Eosinophils % (A) 4 %; HCT 30.3 % (34.0-46.0); Lymphocytes # (A) 2.8 k/uL (1.0-4.8); Lymphocytes % (A) 24 %; MCH 31.2 pg (25.0-35.0); MCHC 31.4 g/dL (31.0-37.0); MCV 99.3 fL (80.0-100.0); Monocytes # (A) 1.1 k/uL (0-1.0); Monocytes % (A) 10 %; Neutrophils # (A) 6.8 k/uL (1.3-7.7); Neutrophils % (A) 59 %; Platelet Count 143 k/uL (150-450); RBC 3.06 m/uL (3.80-5.40); RDW 13.7 % (11.5-15.5); WBC 11.5 k/uL (3.8-10.6)
[2019-06-09 20:28] LABS: HGB 9.5 gm/dL (11.4-16.0)
[2019-06-09 20:45] LABS: Anisocytosis (M) Present; Hypochromasia (M) Present; Stomatocytes Present
[2019-06-09] MEDS: ASPIRIN 81 MG PO SCH (21:10)
[2019-06-09] MEDS: PRIMIDONE 50 MG TAB PO SCH (21:10)
[2019-06-10] LABS: Glucose,Whole Blood 118 mg/dL (75-99)
[2019-06-10] MEDS: PIPERACILLIN-TAZOBACTAM 3.375 GM in SODIUM CHLORIDE 0.9% 100 ML IVPB SCH ×4 (00:01→23:18)
[2019-06-10] MEDS: PROPOFOL 1,000 MG in EMPTY BAG 1 BAG IV SCH ×2 (02:23→05:45)
[2019-06-10] MEDS: IPRATROPIUM-ALBUTEROL 3 ML NEB INHALATION SCH ×5 (03:06→19:39)
[2019-06-10 04:22] LABS: Basophils # (A) 0.1 k/uL (0-0.2); Basophils % (A) 1 %; Eosinophils # (A) 0.5 k/uL (0-0.7); Eosinophils % (A) 4 %; HCT 29.9 % (34.0-46.0); HGB 9.5 gm/dL (11.4-16.0); Lymphocytes # (A) 2.9 k/uL (1.0-4.8); Lymphocytes % (A) 26 %; MCH 31.4 pg (25.0-35.0); MCHC 31.6 g/dL (31.0-37.0); MCV 99.4 fL (80.0-100.0); Mean Platelet Volume 11.9; Monocytes # (A) 1.3 k/uL (0-1.0); Monocytes % (A) 12 %; Neutrophils # (A) 5.9 k/uL (1.3-7.7); Neutrophils % (A) 53 %; Platelet Count 134 k/uL (150-450); RBC 3.01 m/uL (3.80-5.40); RDW 13.8 % (11.5-15.5); WBC 11.1 k/uL (3.8-10.6)
[2019-06-10 04:33] LABS: ABG Base Excess 1.4 mmol/L; ABG HCO3 25 mmol/L (21-25); ABG PCO2 32 mmHg (35-45); ABG PO2 118 mmHg (83-108); ABG TCO2 26 mmol/L (19-24); Allen Test Performed? Yes
[2019-06-10 04:33] LABS: African American GFR (CKD) >90 (>60 ml/min/1.73 sqM); Anion Gap 4 mmol/L; Blood Urea Nitrogen 26 mg/dL (7-17); Calcium 8.8 mg/dL (8.4-10.2); Carbon Dioxide 25 mmol/L (22-30); Chloride 112 mmol/L (98-107); Glucose 108 mg/dL (74-99); Non-African American GFR(CKD) 83 (>60 ml/min/1.73 sqM); Potassium 4.2 mmol/L (3.5-5.1); Sodium 141 mmol/L (137-145)
[2019-06-10] MEDS: NOREPINEPHRINE 32 MG in SODIUM CHLORIDE 0.9% 218 ML IV SCH (05:46)
[2019-06-10] MEDS: SODIUM CHLORIDE 0.9% 1,000 ML IV SCH ×2 (05:46→23:19)
[2019-06-10] MEDS: DIVALPROEX SPRINKLE 125 MG CAP.SPRINK PO SCH ×2 (06:07→17:36)
[2019-06-10] MEDS: LEVOTHYROXINE 50 MCG TAB PO SCH (06:07)
--- NOTE | 2019-06-10 08:15 | XR ---
EXAMINATION TYPE: XR chest 1V portable DATE OF EXAM: 06/10/2019 COMPARISON: Prior chest x-ray 06/09/2019 HISTORY: Intubated TECHNIQUE: Single frontal view of the chest is obtained. FINDINGS: Endotracheal tube and NG tube are overlying appropriate positions, right jugular central v enous catheter is stable with the distal tip over the right atrium. Patient is rotated and there are overlying cardiac leads. Aorta is dense. No evident pneumothorax. Central vascularity is prominent. H eart remains enlarged. Right hemidiaphragm somewhat elevated, may be technical. Subsegmental basilar atelectatic changes are suspected. IMPRESSION: Cardiomegaly, possible underlying pulmonary artery hypertension. Basilar atelectasis. Ro tated exam.
[2019-06-10] MEDS: CHLORHEXIDINE GLUCONATE 15 ML CUP MUCOUS MEM SCH ×2 (08:29→20:08)
[2019-06-10] MEDS: ENOXAPARIN 40 MG/0.4 ML SYRINGE SQ SCH (08:29)
--- NOTE | 2019-06-10 08:29 | P.PN ---
Subjective This is a pleasant 84 years old female with past medical history of CVA with hemiparesis , GERD, hypertension, memory impairment, osteoarthritis , seizure disorder, restless leg syndrome. On the presentation patient was attended and could not provide information. She was acidotic and she got intubated immediately. Information taken from the staff and records. Patient vitals this morning are more stable. On presentation patient was hypertensive with blood pressure 79/38. Leukocytosis with the [place] of 15 K, Improving 10.5, Patient Was Acidotic with pH is 7.0 and 7.1, potassium is elevated at 7.3 and 6.5, creatinine elevated at 3.7 and 2.6. Troponin and liver enzymes are not elevated, proBNP is 379, TSH 1.6. Influenza is negative. Chest x-ray: No acute process.ankle x-ray: No fracture. CT of the brain: No acute process, cerebral atrophy per radiologist. CT of the abdomen and pelvis with no contrast showing right-sided hydronephrosis with obstructing calculus, right lower quadrant ileostomy, no bowel obstruction. On admission patient had several boluses of IV fluids, continue therapy for hyperkalemia per protocol. She was started on ceftriaxone and Unasyn. Also 4 Lovenox for DVT prophylaxis. She is making urine, 30 mL/h 06/09/19 pt remains in the ICU, she is improving , her vitals are stable, and better, pt is needing less levophed today, and it possible it could be stopped if pt did not need propofol because she remains intubated now, however it felt pt could come out of vent soon, and she keep improving, WBC is back to normal, hemoglobin with some dropping 10.2 down to 7.2, her acidosis is improved. ceratinine within normal limites , rest of BMP is unremarkable, sugar controlled, urologist did cystocopy showing no stone or tumor. Urine culure is growing gram negative bacilli 06/10/2019 Patient remains in the ICU intubated, her vent reading its FiO2 of 30% with PEEP of 5 and tidal volume of 450, pulmonary/critical care team and managing her vent. This is the patient underwent cystoscopy and placement of ureteral catheter right side all the way down to the Arroyo catheter. Discussed with the staff, we need to keep the Arroyo catheter as per the urologist. Patient has normal saline at 50 mL, she is a little dose of Levophed, Arroyo catheter with his right ureteral catheter are in place. Patient is getting tube feeds. Vitals and labs reviewed with no significant change. Urine cultures are growing gram-negative bacilli Patient undergoing weaning trials today ROS: no applicable Active Medications Generic Name Dose Route Start Last Admin Trade Name Freq PRN Reason Stop Dose Admin Albuterol/Ipratropium 3 ml 06/09/19 16:00 06/10/19 07:43 Duoneb 0.5 Mg-3 Mg/3 Ml Soln INHALATION 3 ml RT-Q4H JACINTO Administration Aspirin 81 mg 06/08/19 21:00 06/09/19 21:10 Aspirin PO 81 mg HS JACINTO Administration Chlorhexidine Gluconate 15 ml 06/08/19 09:00 06/09/19 21:10 Peridex MUCOUS MEM 15 ml BID JAC[facility]TO Administration Divalproex Sodium 250 mg 06/08/19 16:00 06/10/19 06:07 Depakote Sprinkle PO 250 mg BID@0700,1600 JAC[facility]TO Administration Enoxaparin Sodium 40 mg 06/10/19 09:00 Lovenox SQ DAILY JACINTO Sodium Chloride 1,000 mls @ 30 mls/hr 06/08/19 04:15 06/09/19 22:38 Saline 0.9% IV 30 mls/hr .Q24H [facility]AC[facility]TO Administration Norepinephrine Bitartrate 32 250 mls @ 1.98 mls/hr 06/08/19 04:15 06/10/19 07:34 mg/ Sodium Chloride IV 0.03 mcg/kg/min .Q24H [facility]TO 1.188 mls/hr Titration Protocol 0.05 MCG/KG/MIN Propofol 1,000 mg/ IV Solution 100 mls @ 0 mls/hr 06/08/19 08:00 06/10/19 07:05 IV 40 mcg/kg/min .Q0M JAC[facility]TO 22.872 mls/hr Titration Protocol Titrate Sodium Chloride 1,000 mls @ 50 mls/hr 06/09/19 08:30 06/10/19 05:46 Saline 0.9% IV 50 mls/hr .Q20H [facility]TO Administration Piperacillin Sod/Tazobactam 100 mls @ 25 mls/hr 06/09/19 16:00 06/10/19 00:01 Sod 3.375 gm/ Sodium Chloride IVPB 25 mls/hr Q8HR [facility]TO Administration Levothyroxine Sodium 50 mcg 06/09/19 06:30 06/10/19 06:07 Synthroid PO 50 mcg DAILY@0630 JACINTO Administration Miscellaneous Information 1 each 06/09/19 05:06 Potassium Per Protocol MISCELLANE DAILY PRN Per Protocol Protocol Naloxone HCl 0.2 mg 06/08/19 04:08 Narcan IV Q2M PRN Opioid Reversal Pantoprazole Sodium 40 mg 06/08/19 09:00 06/09/19 08:11 Protonix IV 40 mg DAILY JACINTO Administration Primidone 25 mg 06/08/19 22:21 06/09/19 21:10 Mysoline PO 25 mg HS JACINTO Administration Objective - Vital Signs Vital signs: Vital Signs Temp 98.6 F 06/10/19 04:00 Pulse 58 L 06/10/19 08:00 Resp 16 06/10/19 07:00 BP 101/46 06/10/19 07:00 Pulse Ox 96 06/10/19 07:00 Intake & Output 06/09/19 06/10/19 06/10/19 18:59 06:59 18:59 Intake Total 5192.402 3659.184 118.199 Output Total 1135 1010 50 Balance 284.721 285.184 68.199 Weight 95.3 kg Intake: IV 730 700 50 Dextrose 5% in Water 1, 100 000 ml @ 50 mls/hr IV . Q23H [facility]TO with Sodium Bicarb (1 Meq/ml) 150 ml Rx#:[id number] Piperacillin-Tazobactam 3 100 100 .375 gm In Sodium Chloride 0.9% 100 ml @ 25 mls/hr IVPB Q12HR [facility] Rx #:[id number] Sodium Chloride 0.9% 1, 30 000 ml @ 30 mls/hr IV . Q24H [facility]TO Rx#:[id number] Sodium Chloride 0.9% 1, 500 600 50 000 ml @ 50 mls/hr IV . Q20H [facility]ACINTO Rx#:[id number] Intake, IV Titration 290.721 208.184 41.199 Amount Norepinephrine 32 mg In 27.954 9.406 2.079 Sodium Chloride 0.9% 218 ml @ 0.05 MCG/KG/MIN 1.98 mls/hr IV .Q24H [facility]AC[facility]TO Rx#: [id number] Propofol 1,000 mg In 262.767 198.778 39.12 Empty Bag 1 bag @ Titrate IV .Q0M [facility] Rx#: [id number] Tube Feeding 309 297 27 Other 90 90 Output: Urine 735 660 50 Stool 400 350 Other: Voiding Method Indwelling Catheter Indwelling Catheter ABP, PAP, CO, CI - Last Documented Arterial Blood Pressure 135/64 - Exam -GENERAL: The patient is intubated and sedated HEENT: Pupils are round and equally reacting to light. EOMI. No scleral icterus. No conjunctival pallor. Normocephalic, atraumatic. No pharyngeal erythema. No thyromegaly. CARDIOVASCULAR: S1 and S2 present. No murmurs, rubs, or gallops. PULMONARY: Chest is clear to auscultation, no wheezing or crackles. -ABDOMEN: Soft, nontender, nondistended, normoactive bowel sounds. No palpable organomegaly. Arroyo catheter is in place MUSCULOSKELETAL: No joint swelling or deformity. EXTREMITIES: No cyanosis, clubbing, or pedal edema. NEUROLOGICAL: Gross neurological examination did not reveal any focal deficits. SKIN: No rashes. No petechiae - Labs CBC & Chem 7: 06/10/19 04:10 06/10/19 04:10 Labs: Abnormal Lab Results - Last 24 Hours (Table) 06/09/19 06/09/19 06/09/19 Range/Units 12:02 13:10 18:12 WBC (3.8-10.6) k/uL RBC (3.80-5.40) m/uL Hgb (11.4-16.0) gm/dL Hct (34.0-46.0) % Plt Count (150-450) k/uL Monocytes # (0-1.0) k/uL ABG pH (7.35-7.45) ABG pCO2 (35-45) mmHg ABG pO2 (83-108) mmHg ABG Total CO2 (19-24) mmol/L ABG O2 Saturation (94-97) % Chloride (98-107) mmol/L BUN (7-17) mg/dL Glucose (74-99) mg/dL POC Glucose (mg/dL) 112 H 127 H 127 H (75-99) mg/dL 06/09/19 06/09/19 06/10/19 Range/Units 20:10 23:48 04:10 WBC 11.5 H 11.1 H (3.8-10.6) k/uL RBC 3.06 L 3.01 L (3.80-5.40) m/uL Hgb 9.5 L D 9.5 L (11.4-16.0) gm/dL Hct 30.3 L 29.9 L (34.0-46.0) % Plt Count 143 L 134 L (150-450) k/uL Monocytes # 1.1 H 1.3 H (0-1.0) k/uL ABG pH (7.35-7.45) ABG pCO2 (35-45) mmHg ABG pO2 (83-108) mmHg ABG Total CO2 (19-24) mmol/L ABG O2 Saturation (94-97) % Chloride (98-107) mmol/L BUN (7-17) mg/dL Glucose (74-99) mg/dL POC Glucose (mg/dL) 118 H (75-99) mg/dL 06/10/19 06/10/19 Range/Units 04:10 04:28 WBC (3.8-10.6) k/uL RBC (3.80-5.40) m/uL Hgb (11.4-16.0) gm/dL Hct (34.0-46.0) % Plt Count (150-450) k/uL Monocytes # (0-1.0) k/uL ABG pH 7.50 H (7.35-7.45) ABG pCO2 32 L (35-45) mmHg ABG pO2 118 H (83-108) mmHg ABG Total CO2 26 H (19-24) mmol/L ABG O2 Saturation 99.0 H (94-97) % Chloride 112 H (98-107) mmol/L BUN 26 H (7-17) mg/dL Glucose 108 H (74-99) mg/dL POC Glucose (mg/dL) (75-99) mg/dL Microbiology - Last 24 Hours (Table) 06/07/19 23:45 Blood Culture - Preliminary Blood No Growth after 48 hours 06/08/19 02:18 Urine Culture - Preliminary Urine,Clean Catch Gram Neg Bacilli Assessment and Plan Assessment: Septic shock secondary to UTI Right hydronephrosis secondary with low suspicion for obstructing calculus by urologist, status post right ureteral catheter placement Fluid overload and pulmonary congestion, could be due to renal failure, improved Acute kidney injury and hyperkalemia, improving. However she is at-risk of hemodialysis Hypotension, on the presentation. Improved With Levophed Elevated lactic acid came back to normal GERD Hypertension Memory impairment Osteoarthritis Seizure disorder Restless leg syndrome history of CVA with hemiparesis Plan: this is a pleasant 84 years old female who presents with septic shock secondary to UTI and obstructive right side Stone and hydronephrosis, status post right ureteral catheter. Continue with antibiotics and fluids. Continue with antibiotics to Zosyn. Follow-up recommendation by critical care team and urology. Follow-up recommendation by statement clerk. Labs and medication were reviewed. monitor hemoglobin. Continue same treatment. Continue with symptomatic treatment. Resume home medication. Monitor lytes and vitals. DVT and GI prophylaxis. Further recommendations of the clinical course of the patient DVT prophylaxis: Subcutaneous Lovenox GI Prophylaxis: Pepcid Prognosis is guarded
[2019-06-10] MEDS: PANTOPRAZOLE 40 MG/10 ML VIAL IV SCH (08:30)
--- NOTE | 2019-06-10 09:14 | PN ---
PROGRESS NOTE PULMONARY/CRITICAL CARE PROGRESS NOTE: DATE OF SERVICE: 06/10/2019 CRITICAL CARE TIME: 34 minutes This is an 84-year-old female admitted on 06/08 with acute renal failure, urinary tract infection, sepsis, and mental status changes. She apparently developed acute hypercapnic respiratory failure secondary to sepsis and septic shock with severe metabolic acidosis and required intubation and mechanical ventilation on 06/08. My partner, Dr. Canales did a consultation on Sunday last. Anyway, the patient remains on the mechanical ventilator. She is on the volume assist-control mode rate of 20, tidal volume 450, FiO2 of 35% to be dropped to 30%, PEEP of 5. Blood gases show a pO2 of 118, pCO2 of 32, pH of 7.5. That was on 35%. Blood gases consistent with hyperoxia and a combination of respiratory and metabolic alkalosis. She is getting saline at 50 mL an hour, Diprivan at 40 mcg/kg/per minute, Levophed at 5 mcg/minute and Vital high- protein at 27 mL and hour which is goal. Today, will try a daily interruption of sedation and spontaneous breathing trial. Yesterday, Dr. Evans, from Urology, placed a right ureteral stent. The patient had a relatively uneventful night according to the nurses. Current vital signs are reviewed, temperature is 98.6, heart rate 58, respiratory rate 20, blood pressure 101/46 mean 64, saturations are 96% on the 30% 5 of PEEP. Appears in no acute distress. Currently sedated. HEENT: Examination is grossly unremarkable. There is an orally placed endotracheal tube and NG tube. NECK: Supple, full range of motion. No adenopathy. Neck veins are flat. CARDIOVASCULAR: Examination reveals regular rhythm and rate. Heart rate 60. S1, S2 normal. No murmur. LUNGS: Reveal coarse rhonchi. Breath sounds are diminished. No crackles. ABDOMEN: Soft, bowel sounds are heard. EXTREMITIES: Intact. No edema. SKIN: Without rash. NEUROLOGIC: Examination could not be properly assessed because of her current level of sedation. Microbiology is reviewed. Urine showing some gram-negative bacilli. It has not yet been identified. There is greater than 100,000 colony-forming units per mL. LAB DATA: Reviewed. White count 11.1, hemoglobin 9.5, hematocrit 29.9, platelet count 134,000, sodium 141, potassium 4.2, chloride 112, CO2 is 25, anion gap is 4. BUN and creatinine were 26 and 0.62. Calcium 8.8. A chest x-ray today shows some cardiomegaly and bibasilar atelectasis. MEDICATIONS: Reviewed. Currently, she is on aspirin, chlorhexidine, Depakote, Lovenox, DuoNeb levothyroxine, Narcan, norepinephrine, Protonix, Zosyn, potassium replacement, Mysoline, propofol and a saline IV. ASSESSMENT: 1. Acute hypercapnic respiratory failure secondary to sepsis with septic shock and severe metabolic acidosis, secondary to urinary tract infection with gram-negative bacilli, yet to be identified, which required intubation and mechanical ventilation on June 08, 2019. 2. Gram-negative bacillary septic shock secondary to urinary tract infection, urosepsis, cultures pending. 3. Right hydronephrosis, secondary to obstructing calculus, status post stent placement on June 09. 4. Fluid overload, status post 4 L of fluid in the emergency room. 5. Acute kidney injury, likely secondary to acute tubular necrosis. 6. Hypotension, secondary to sepsis, improved. 7. Acute metabolic acidosis secondary to sepsis/septic shock. 8. History of benign essential hypertension. 9. History of cerebrovascular accident. 10.History of seizure disorder. 11.History of degenerative joint disease. 12.History of gastroesophageal reflux disease with esophagitis. 13.History of anemia. 14.Thrombocytopenia. PLAN: Currently, the patient is on good antibiotics updrafts, nutrition, and norepinephrine for blood pressure support. Will attempt a daily interruption of sedation and spontaneous breathing trial. Urology was kind enough yesterday placed a right ureteral stent. The patient is not a reasonable blood gases. It does show evidence of both a respiratory and metabolic alkalosis. Additional recommendations and suggestions forthcoming. Prognosis is guarded. We should have a discussion about code status given her age. Additional recommendations and suggestions are forthcoming. CRITICAL CARE TIME: 34 minutes. MMODL / IJN: [id number] /
--- NOTE | 2019-06-10 09:45 | CDI ---
Documentation Clarification Form Date: 06/10/2019 09:14:23 AM From: Isis Warren Admit Date: 06/08/2019 04:11:00 AM Patient Name: Sumaya Yanez Visit Number: [id number] Discharge Date: ATTENTION: The Clinical Documentation Specialists (CDI) and [facility] Coding Staff appreciate your assistance in clarifying documentation. Please respond to the clarification below the line at the bottom and electronically sign. The CDI & [facility] Coding staff will review the response and follow-up if needed. Please note: Queries are made part of the Legal Health Record. If you have any questions, please contact the author of this message via ITS. Dr. Jarquin E Sharad Altered Mental Status was documented in the ED Note History/Risk Factors: 84-year-old female presents to ED via EMS from [facility] for not acting appropriately, confusion, loss of appetite, nausea and vomiting. Medical History - CVA; GERD; HTN; OA; Seizure disorder; Dementia Clinical Indicators: per H & P On the presentation patient was attended and could not provide information Labs: 06/07/2019 Wbc 14.4; Neutrophils 9.9; K 7.3; Lactic acid 2.4; Phosphorus 9.8; 06/08 CT Brain Cerebral atrophy. No acute intracranial abnormality. Treatment: 06/08 Ampicillin IVPB x1 followed by Q6H; Rocephin IVP x1; Zosyn Ivpb x 1 then followed by Zosyn Ivpb Q8Hr; 0.9ns 3L bolus In your professional opinion, please clarify the etiology of the Altered Mental Status, if known. * Metabolic Encephalopathy due to Sepsis * Metabolic Encephalopathy due to (please specify) * Metabolic Encephalopathy Ruled Out * Other condition (please specify) * Unable to determine (Last Revision: August 2017) Metabolic Encephalopathy due to Sepsis , and other eg renal failure (multifatorial) MTDD
[2019-06-10 09:56] LABS: ABG Base Excess 1.1 mmol/L; ABG HCO3 26 mmol/L (21-25); ABG PCO2 46 mmHg (35-45); ABG PH 7.37 (7.35-7.45); ABG PO2 95 mmHg (83-108); ABG TCO2 28 mmol/L (19-24)
[2019-06-10 10:05] LABS: Allen Test Performed? no
--- NOTE | 2019-06-10 10:35 | P.PN ---
Subjective Patient is seen in follow-up for acute kidney injury and hyperkalemia. Renal function is improved. Potassium level is normal. She is currently maintained on . normal saline at 50 mL an hour Acidosis has improved. Off vasopressors. Currently being weaned. Vital signs are stable. General: The patient appeared well nourished and normally developed. HEENT: Head exam is unremarkable. Neck is without jugular venous distension. Intubated. LUNGS: Breath sounds decreased. HEART: Rate and Rhythm are regular. First and second heart sounds normal. No murmurs, rubs or gallops. ABDOMEN: Abdominal exam reveals normal bowel sounds. Non-tender and non- distended. No evidence of peritonitis. EXTREMITITES: No clubbing, cyanosis, or edema. Objective - Vital Signs Vital signs: Vital Signs Temp 98.6 F 06/10/19 08:00 Pulse 69 06/10/19 09:00 Resp 24 06/10/19 09:00 BP 117/57 06/10/19 09:00 Pulse Ox 98 06/10/19 09:00 Intake & Output 06/09/19 06/10/19 06/10/19 18:59 06:59 18:59 Intake Total 0449.851 8664.184 402.107 Output Total 1135 1010 190 Balance 284.721 285.184 212.107 Weight 95.3 kg Intake: IV 730 700 200 Dextrose 5% in Water 1, 100 000 ml @ 50 mls/hr IV . Q23H JACINTO with Sodium Bicarb (1 Meq/ml) 150 ml Rx#:[id number] Piperacillin-Tazobactam 3 100 100 50 .375 gm In Sodium Chloride 0.9% 100 ml @ 25 mls/hr IVPB Q12HR [facility] Rx #:[id number] Sodium Chloride 0.9% 1, 30 000 ml @ 30 mls/hr IV . Q24H [facility] Rx#:[id number] Sodium Chloride 0.9% 1, 500 600 150 000 ml @ 50 mls/hr IV . Q20H [facility]TO Rx#:[id number] Intake, IV Titration 290.721 208.184 88.107 Amount Norepinephrine 32 mg In 27.954 9.406 3.386 Sodium Chloride 0.9% 218 ml @ 0.05 MCG/KG/MIN 1.98 mls/hr IV .Q24H [facility] Rx#: [id number] Propofol 1,000 mg In 262.767 198.778 84.721 Empty Bag 1 bag @ Titrate IV .Q0M [facility] Rx#: [id number] Tube Feeding 309 297 54 Other 90 90 60 Output: Urine 735 660 190 Stool 400 350 Other: Voiding Method Indwelling Catheter Indwelling Catheter Indwelling Catheter ABP, PAP, CO, CI - Last Documented Arterial Blood Pressure 131/44 - Labs CBC & Chem 7: 06/10/19 04:10 06/10/19 04:10 Labs: Abnormal Lab Results - Last 24 Hours (Table) 06/09/19 06/09/19 06/09/19 Range/Units 12:02 13:10 18:12 WBC (3.8-10.6) k/uL RBC (3.80-5.40) m/uL Hgb (11.4-16.0) gm/dL Hct (34.0-46.0) % Plt Count (150-450) k/uL Monocytes # (0-1.0) k/uL ABG pH (7.35-7.45) ABG pCO2 (35-45) mmHg ABG pO2 (83-108) mmHg ABG HCO3 (21-25) mmol/L ABG Total CO2 (19-24) mmol/L ABG O2 Saturation (94-97) % Chloride (98-107) mmol/L BUN (7-17) mg/dL Glucose (74-99) mg/dL POC Glucose (mg/dL) 112 H 127 H 127 H (75-99) mg/dL 06/09/19 06/09/19 06/10/19 Range/Units 20:10 23:48 04:10 WBC 11.5 H 11.1 H (3.8-10.6) k/uL RBC 3.06 L 3.01 L (3.80-5.40) m/uL Hgb 9.5 L D 9.5 L (11.4-16.0) gm/dL Hct 30.3 L 29.9 L (34.0-46.0) % Plt Count 143 L 134 L (150-450) k/uL Monocytes # 1.1 H 1.3 H (0-1.0) k/uL ABG pH (7.35-7.45) ABG pCO2 (35-45) mmHg ABG pO2 (83-108) mmHg ABG HCO3 (21-25) mmol/L ABG Total CO2 (19-24) mmol/L ABG O2 Saturation (94-97) % Chloride (98-107) mmol/L BUN (7-17) mg/dL Glucose (74-99) mg/dL POC Glucose (mg/dL) 118 H (75-99) mg/dL 06/10/19 06/10/19 06/10/19 Range/Units 04:10 04:28 09:52 WBC (3.8-10.6) k/uL RBC (3.80-5.40) m/uL Hgb (11.4-16.0) gm/dL Hct (34.0-46.0) % Plt Count (150-450) k/uL Monocytes # (0-1.0) k/uL ABG pH 7.50 H (7.35-7.45) ABG pCO2 32 L 46 H (35-45) mmHg ABG pO2 118 H (83-108) mmHg ABG HCO3 26 H (21-25) mmol/L ABG Total CO2 26 H 28 H (19-24) mmol/L ABG O2 Saturation 99.0 H (94-97) % Chloride 112 H (98-107) mmol/L BUN 26 H (7-17) mg/dL Glucose 108 H (74-99) mg/dL POC Glucose (mg/dL) (75-99) mg/dL Microbiology - Last 24 Hours (Table) 06/07/19 23:45 Blood Culture - Preliminary Blood No Growth after 48 hours 06/08/19 02:18 Urine Culture - Preliminary Urine,Clean Catch Gram Neg Bacilli Assessment and Plan Plan: Assessment: 1. Acute kidney injury mostly prerenal secondary to hypotension. Resolved. Mild right-sided hydronephrosis noted on ultrasound. 2. Hyperkalemia secondary to acute kidney injury and metabolic acidosis. She was also taking lisinopril outpatient. Improved. 3. Metabolic acidosis secondary to acute kidney injury. Better. 4. Septic shock secondary to UTI. Urine culture positive for gram-negative bacilli. Off Levophed. 5. Acute hypercapnic respiratory failure. Currently intubated. Plan: Maintain normal saline at 50 mL an hour. Wean FiO2. No changes from nephrology standpoint.
[2019-06-10] MEDS ORDERED: HYDROmorphone 0.5 MG/0.5 ML SYRINGE IVP STA (11:02)
[2019-06-10 12:05] LABS: Glucose,Whole Blood 101 mg/dL (75-99)
[2019-06-10] MEDS ORDERED: ACETAMINOPHEN IV (For NPO) 1,000 MG in EMPTY BAG 1 BAG IVPB PRN (12:40)
[2019-06-10] MEDS ORDERED: amLODIPine 10 MG TAB PO PRN (17:56)
[2019-06-10] MEDS: LISINOPRIL 5 MG TAB PO SCH (18:06)
[2019-06-10] MEDS: traMADol 50 MG TAB PO PRN (18:06)
[2019-06-10] MEDS: ASPIRIN 81 MG PO SCH (20:03)
[2019-06-10] MEDS: PRIMIDONE 50 MG TAB PO SCH (20:03)
[2019-06-10] MEDS: ACETAMINOPHEN TAB 325 MG TAB PO PRN (20:10)
[2019-06-10] MEDS ORDERED: LACTULOSE 20 GM/30 ML CUP PO PRN (20:15)
[2019-06-10] MEDS: BACLOFEN 10 MG TAB PO SCH (21:05)
[2019-06-11] MEDS: IPRATROPIUM-ALBUTEROL 3 ML NEB INHALATION SCH ×2 (00:17→03:43)
[2019-06-11] MEDS ORDERED: ONDANSETRON 4 MG/2 ML VIAL IVP STA (00:34)
[2019-06-11] MEDS: NOREPINEPHRINE 32 MG in SODIUM CHLORIDE 0.9% 218 ML IV SCH (03:42)
[2019-06-11 04:45] LABS: HCT 26.7 % (34.0-46.0); HGB 8.4 gm/dL (11.4-16.0); Hypochromasia Moderate; MCHC 31.3 g/dL (31.0-37.0); MCV 102.2 fL (80.0-100.0); Macrocytosis Slight; Mean Platelet Volume 11.8; Platelet Count 123 k/uL (150-450); RBC 2.61 m/uL (3.80-5.40); RDW 13.4 % (11.5-15.5); WBC 8.3 k/uL (3.8-10.6)
[2019-06-11 04:57] LABS: African American GFR (CKD) >90 (>60 ml/min/1.73 sqM); Anion Gap 8 mmol/L; Blood Urea Nitrogen 13 mg/dL (7-17); Calcium 8.3 mg/dL (8.4-10.2); Carbon Dioxide 25 mmol/L (22-30); Chloride 113 mmol/L (98-107); Glucose 82 mg/dL (74-99); Magnesium 1.2 mg/dL (1.6-2.3); Non-African American GFR(CKD) 85 (>60 ml/min/1.73 sqM); Potassium 3.7 mmol/L (3.5-5.1); Sodium 146 mmol/L (137-145)
[2019-06-11] MEDS: LEVOTHYROXINE 50 MCG TAB PO SCH (05:43)
[2019-06-11] MEDS ORDERED: POTASSIUM CHLORIDE ER 20 MEQ TAB.ER PO SCH (06:00)
[2019-06-11] MEDS: DIVALPROEX SPRINKLE 125 MG CAP.SPRINK PO SCH ×2 (06:02→15:07)
[2019-06-11 06:19] LABS: Band Neutrophils % 4 %; Eosinophils # (M) 0.66 k/uL (0-0.7); Lymphocytes # (M) 2.57 k/uL (1.0-4.8); Neutrophils % (M) 51 %; Nucleated Red Blood Cells 0 /100 WBC (0-0); Total Cells Counted 100
[2019-06-11 06:27] LABS: Anisocytosis (M) Present
[2019-06-11 06:28] LABS: Large Platelets Present; Polychromasia Present
[2019-06-11] MEDS ORDERED: Magnesium Replacement Protocol 1 EACH MISC MISCELLANE PRN (07:33)
--- NOTE | 2019-06-11 08:18 | XR ---
EXAMINATION TYPE: XR chest 1V portable DATE OF EXAM: 06/11/2019 COMPARISON: Prior chest x-ray 06/10/2019 HISTORY: Tube placement, abnormal chest x-ray TECHNIQUE: Single frontal view of the chest is obtained. FINDINGS: There is been interval removal of endotracheal and NG tube. Pulmonary artery again is prom inently, aorta is dense and ectatic. Right jugular central venous catheter is stable with the tip in the right atrium. No evident pneumothorax. Interval improved visualization of the right hemidiaphragm . Heart is enlarged and stable. Patient is rotated. There are overlying cardiac leads. IMPRESSION: Interval extubation. Improved aeration. Suspect cardiomegaly with appearance possibly ac centuated due to rotation, correlate for pulmonary artery hypertension
[2019-06-11] MEDS: MAGNESIUM SULFATE-D5W PMX 1 GM in DEXTROSE/WATER 1 100ML.BAG IVPB SCH ×3 (08:22→10:49)
[2019-06-11] MEDS: PIPERACILLIN-TAZOBACTAM 3.375 GM in SODIUM CHLORIDE 0.9% 100 ML IVPB SCH (08:23)
[2019-06-11] MEDS: FLUTICASONE 50MCG/SPRAY NASAL 16GM EA NOSTRIL SCH (08:23)
[2019-06-11] MEDS: BACLOFEN 10 MG TAB PO SCH ×2 (08:23→21:52)
[2019-06-11] MEDS: ENOXAPARIN 40 MG/0.4 ML SYRINGE SQ SCH (08:23)
[2019-06-11] MEDS: PANTOPRAZOLE 40 MG/10 ML VIAL IV SCH (08:24)
[2019-06-11] MEDS: traMADol 50 MG TAB PO PRN ×2 (08:24→22:01)
[2019-06-11] MEDS: LISINOPRIL 5 MG TAB PO SCH (08:24)
[2019-06-11] MEDS: SERTRALINE 100 MG TAB PO SCH (08:24)
--- NOTE | 2019-06-11 08:47 | P.PN ---
Subjective Patient is seen in follow-up for acute kidney injury and hyperkalemia. Renal function is improved. Potassium level is normal. She is currently maintained on normal saline at 50 mL an hour Acidosis has improved. Off vasopressors. Extubated yesterday. Currently on full liquid diet. Vital signs are stable. General: The patient appeared well nourished and normally developed. HEENT: Head exam is unremarkable. Neck is without jugular venous distension. Intubated. LUNGS: Breath sounds decreased. HEART: Rate and Rhythm are regular. First and second heart sounds normal. No murmurs, rubs or gallops. ABDOMEN: Abdominal exam reveals normal bowel sounds. Non-tender and non- distended. No evidence of peritonitis. EXTREMITITES: No clubbing, cyanosis, or edema. Objective - Vital Signs Vital signs: Vital Signs Temp 98.9 F 06/11/19 04:00 Pulse 78 06/11/19 07:00 Resp 12 06/11/19 07:00 BP 119/78 06/11/19 07:00 Pulse Ox 97 06/11/19 07:00 Intake & Output 06/10/19 06/11/19 06/11/19 18:59 06:59 18:59 Intake Total 279.801 5060 Output Total 615 765 Balance 248.833 8095 Weight 96.3 kg Intake: IV 700 850 Piperacillin-Tazobactam 3 100 .375 gm In Sodium Chloride 0.9% 100 ml @ 25 mls/hr IVPB Q12HR [facility] Rx #:[id number] Piperacillin-Tazobactam 3 200 .375 gm In Sodium Chloride 0.9% 100 ml @ 25 mls/hr IVPB Q8HR [facility] Rx# :[id number] Sodium Chloride 0.9% 1, 600 650 000 ml @ 50 mls/hr IV . Q20H [facility] Rx#:[id number] Intake, IV Titration 88.107 Amount Norepinephrine 32 mg In 3.386 Sodium Chloride 0.9% 218 ml @ 0.05 MCG/KG/MIN 1.98 mls/hr IV .Q24H [facility] Rx#: [id number] Propofol 1,000 mg In 84.721 Empty Bag 1 bag @ Titrate IV .Q0M [facility] Rx#: [id number] Oral 930 Tube Feeding 54 Other 60 Output: Urine 615 665 Stool 100 Other: Voiding Method Indwelling Catheter Indwelling Catheter ABP, PAP, CO, CI - Last Documented Arterial Blood Pressure 152/65 - Labs CBC & Chem 7: 06/11/19 04:28 06/11/19 04:28 Labs: Abnormal Lab Results - Last 24 Hours (Table) 06/10/19 06/10/19 06/11/19 Range/Units 09:52 11:53 04:28 RBC 2.61 L (3.80-5.40) m/uL Hgb 8.4 L (11.4-16.0) gm/dL Hct 26.7 L (34.0-46.0) % MCV 102.2 H (80.0-100.0) fL Plt Count 123 L (150-450) k/uL ABG pCO2 46 H (35-45) mmHg ABG HCO3 26 H (21-25) mmol/L ABG Total CO2 28 H (19-24) mmol/L Sodium (137-145) mmol/L Chloride (98-107) mmol/L POC Glucose (mg/dL) 101 H (75-99) mg/dL Calcium (8.4-10.2) mg/dL Magnesium (1.6-2.3) mg/dL 06/11/19 Range/Units 04:28 RBC (3.80-5.40) m/uL Hgb (11.4-16.0) gm/dL Hct (34.0-46.0) % MCV (80.0-100.0) fL Plt Count (150-450) k/uL ABG pCO2 (35-45) mmHg ABG HCO3 (21-25) mmol/L ABG Total CO2 (19-24) mmol/L Sodium 146 H (137-145) mmol/L Chloride 113 H (98-107) mmol/L POC Glucose (mg/dL) (75-99) mg/dL Calcium 8.3 L (8.4-10.2) mg/dL Magnesium 1.2 L (1.6-2.3) mg/dL Microbiology - Last 24 Hours (Table) 06/07/19 23:45 Blood Culture - Preliminary Blood No Growth after 72 hours 06/08/19 02:18 Urine Culture - Final Urine,Clean Catch Escherichia coli Assessment and Plan Plan: Assessment: 1. Acute kidney injury mostly prerenal secondary to hypotension. Resolved. Mild right-sided hydronephrosis noted on ultrasound. 2. Hyperkalemia secondary to acute kidney injury and metabolic acidosis. She was also taking lisinopril outpatient. Improved. 3. Metabolic acidosis secondary to acute kidney injury. Better. 4. Septic shock secondary to UTI. Urine culture positive for E. coli. Off Levophed. 5. Acute hypercapnic respiratory failure. Extubated June 10. 6. Hypomagnesemia from poor oral intake. 7. Mild hypernatremia secondary to lack of oral water intake. Plan: Hep-Lock IV fluids. Encouraged oral intake, including water. Replace magnesium. 3 g IV today. Repeat electrolytes in the morning.
--- NOTE | 2019-06-11 09:10 | PN ---
PROGRESS NOTE PULMONARY/CRITICAL CARE PROGRESS NOTE: DATE OF SERVICE: 06/11/2019 This is an 84-year-old female who was extubated on June 10. She was actually admitted on June 08. She was admitted with acute renal failure, urinary tract infection, sepsis, mental status changes. Yesterday, she had good weaning parameters and blood gases and she was extubated successfully. She was intubated because of acute hypercapnic respiratory failure secondary to sepsis and septic shock. Anyway, currently, she is on between 2 to 3 L of O2 by nasal cannula and a saline IV at 50 mL an hour. Updrafts can be discontinued. Art line can be discontinued. Triple-lumen catheter can also be discontinued. The patient could be transferred out to the general medical floor without telemetry. She is doing much better. She is awake and alert. She is sitting up in bed. She wants to go home. Also, I should point out that on 06/09, Dr. Evans placed a right-sided ureteral stent. Current vital signs are reviewed. Currently, temperature is 98.9, heart rate is 78, respiratory rate 12, blood pressure 119/78 mean 91, saturations are 97% on 3 L. Appears in no acute distress. HEENT: Examination is grossly unremarkable. Mucous membranes are moist. No oral lesions. NECK: Supple. Full range of motion. No adenopathy. Neck veins are flat. CARDIOVASCULAR: Examination reveals regular rhythm and rate. S1, S2 normal. No S3, S4, or murmur. Heart sounds are distant. LUNGS: Reveal mostly clear breath sounds. A few scattered rhonchi. No wheezes or crackles. ABDOMEN: Soft. EXTREMITIES: Intact. Mild edema. SKIN: Without rash. NEUROLOGIC: Examination is brief but nonfocal. Urine cultures from 06/08 were positive for Escherichia coli. LABS: Reviewed. White count 8.3, hemoglobin 8.4, hematocrit 26.7, platelet count 123,000, sodium 146, potassium 3.7, chloride is 113, CO2 of 25, anion gap is 8. BUN and creatinine were 13 and 0.58. Magnesium 1.2. X-RAY: A chest x-ray was done. It shows soft a chest x-ray was done. It shows some minimal basilar atelectasis and small pleural effusions. MEDICATIONS: Reviewed. She is currently on Tylenol, Norvasc, aspirin, baclofen, vitamin D3, Depakote, Lovenox, Flonase nasal spray, lactulose, levothyroxine, lisinopril, magnesium replacement, Narcan, chronic Protonix Zosyn, potassium replacement, Mysoline, Requip, Zoloft, and Ultram. ASSESSMENT: 1. Acute hypercapnic respiratory failure secondary to sepsis with septic shock and severe metabolic acidosis secondary to an Escherichia coli urinary tract infection, which required intubation and mechanical ventilation on 06/08, and successful extubation on 06/10. 2. Escherichia coli septic shock secondary to Escherichia coli urinary tract infection with urosepsis. 3. Right hydronephrosis, secondary to obstructing calculus, status post right-sided ureteral stent on June 09. 4. Fluid overload, status post 4 L of fluid in the emergency room, improved. 5. Acute kidney injury, likely secondary to acute tubular necrosis. 6. History of hypotension secondary to sepsis, improved. 7. Acute metabolic acidosis secondary to septic shock, much improved. 8. Benign essential hypertension. 9. History of cerebrovascular accident. 10.History of seizure disorder. 11.History of degenerative joint disease. 12.History of gastroesophageal reflux disease. 13.Anemia. 14.Thrombocytopenia. PLAN: The patient was extubated successfully on 06/10. We are going to DC the updrafts, DC the art line and DC the triple-lumen catheter. She is getting O2 at 2 to 3 L by nasal cannula and a 0.9 IV at 50 mL an hour. Will transfer her to a general medical floor without telemetry. Additional recommendations and suggestions are forthcoming. The E coli in her urine is sensitive to the ampicillin/states the Bactrim and parentheses Zosyn) medication that she is currently on. No additional recommendations are made. Prognosis is guarded. We do need to address and clarify code status. The patient states that she would not want to be reintubated again. Apparently, the daughter would want her to be reintubated again if it would come to that. MMODL / IJN: [id number] /
[2019-06-11 10:36] VITALS: BMI 36.4
--- NOTE | 2019-06-11 11:08 | P.PN ---
Progress Note - Text Progress Note Date: 06/11/19 The patient is afebrile. She is hemodynamically stable and was extubated yesterday. It is planned that she will be transferred from the intensive care unit today. White blood count has improved and is 8300. BUN/creatinine have also improved and are 13/0.58. She denies any abdominal or flank pain at the present time. I discussed with the patient treatment options for her distal right ureteral calculi. She will require antibiotic treatment for at least another 10-14 days prior to elective right ureteroscopy with lithotripsy. It may be possible to use a more narrow spectrum antibiotic then Zosyn based on her urine culture which grew E. coli which was sensitive to all antibiotics tested. If she is transferred to a shelter it may be possible to leave the Arroyo catheter and right ureteral catheter in place instead of converting the patient to a right double-J catheter.
[2019-06-11 11:21] LABS: Glucose,Whole Blood 118 mg/dL (75-99)
--- NOTE | 2019-06-11 11:54 | P.PN ---
Subjective This is a pleasant 84 years old female with past medical history of CVA with hemiparesis , GERD, hypertension, memory impairment, osteoarthritis , seizure disorder, restless leg syndrome. On the presentation patient was attended and could not provide information. She was acidotic and she got intubated immediately. Information taken from the staff and records. Patient vitals this morning are more stable. On presentation patient was hypertensive with blood pressure 79/38. Leukocytosis with the [place] of 15 K, Improving 10.5, Patient Was Acidotic with pH is 7.0 and 7.1, potassium is elevated at 7.3 and 6.5, creatinine elevated at 3.7 and 2.6. Troponin and liver enzymes are not elevated, proBNP is 379, TSH 1.6. Influenza is negative. Chest x-ray: No acute process.ankle x-ray: No fracture. CT of the brain: No acute process, cerebral atrophy per radiologist. CT of the abdomen and pelvis with no contrast showing right-sided hydronephrosis with obstructing calculus, right lower quadrant ileostomy, no bowel obstruction. On admission patient had several boluses of IV fluids, continue therapy for hyperkalemia per protocol. She was started on ceftriaxone and Unasyn. Also 4 Lovenox for DVT prophylaxis. She is making urine, 30 mL/h 06/09/19 pt remains in the ICU, she is improving , her vitals are stable, and better, pt is needing less levophed today, and it possible it could be stopped if pt did not need propofol because she remains intubated now, however it felt pt could come out of vent soon, and she keep improving, WBC is back to normal, hemoglobin with some dropping 10.2 down to 7.2, her acidosis is improved. ceratinine within normal limites , rest of BMP is unremarkable, sugar controlled, urologist did cystocopy showing no stone or tumor. Urine culure is growing gram negative bacilli 06/10/2019 Patient remains in the ICU intubated, her vent reading its FiO2 of 30% with PEEP of 5 and tidal volume of 450, pulmonary/critical care team and managing her vent. This is the patient underwent cystoscopy and placement of ureteral catheter right side all the way down to the Arroyo catheter. Discussed with the staff, we need to keep the Arroyo catheter as per the urologist. Patient has normal saline at 50 mL, she is a little dose of Levophed, Arroyo catheter with his right ureteral catheter are in place. Patient is getting tube feeds. Vitals and labs reviewed with no significant change. Urine cultures are growing gram-negative bacilli Patient undergoing weaning trials today 06/11/2019 Patient status post extubation, she is fully awake, she is oriented to what she has she knows she has infection in her bladder however she is always confused regarding where she is at. She is eating and drinking with no problems. She was transferred to the general medical floor. She will need follow-up as an outpatient with urologist upon discharge to take the right ureter catheter out. Arroyo catheter is still in place. We going to switch her from Zosyn to Cipro, on monitor her EKG tomorrow. Also we will check her electrolytes and replace her low magnesium of 1.2 today. Possible discharge in 24-48 hours Objective - Vital Signs Vital signs: Vital Signs Temp 98.4 F 06/11/19 10:33 Pulse 72 06/11/19 10:33 Resp 16 06/11/19 10:33 BP 137/72 06/11/19 10:33 Pulse Ox 95 06/11/19 10:33 Intake & Output 06/10/19 06/11/19 06/11/19 18:59 06:59 18:59 Intake Total 093.753 8804 250 Output Total 615 765 180 Balance 885.797 8892 70 Weight 96.3 kg 96.3 kg Intake: IV 700 850 250 Magnesium Sulfate-D5w Pmx 100 1 gm In Dextrose/Water 1 100ml.bag @ 100 mls/hr IVPB Q1H [facility] Rx#: [id number] Piperacillin-Tazobactam 3 100 .375 gm In Sodium Chloride 0.9% 100 ml @ 25 mls/hr IVPB Q12HR [facility] Rx #:[id number] Piperacillin-Tazobactam 3 200 100 .375 gm In Sodium Chloride 0.9% 100 ml @ 25 mls/hr IVPB Q8HR [facility] Rx# :[id number] Sodium Chloride 0.9% 1, 600 650 50 000 ml @ 50 mls/hr IV . Q20H [facility] Rx#:[id number] Intake, IV Titration 88.107 Amount Norepinephrine 32 mg In 3.386 Sodium Chloride 0.9% 218 ml @ 0.05 MCG/KG/MIN 1.98 mls/hr IV .Q24H [facility] Rx#: [id number] Propofol 1,000 mg In 84.721 Empty Bag 1 bag @ Titrate IV .Q0M [facility] Rx#: [id number] Oral 930 Tube Feeding 54 Other 60 Output: Urine 615 665 180 Stool 100 Other: Voiding Method Indwelling Catheter Indwelling Catheter Indwelling Catheter ABP, PAP, CO, CI - Last Documented Arterial Blood Pressure 160/94 - Exam -GENERAL: The patient is intubated and sedated HEENT: Pupils are round and equally reacting to light. EOMI. No scleral icterus. No conjunctival pallor. Normocephalic, atraumatic. No pharyngeal erythema. No thyromegaly. CARDIOVASCULAR: S1 and S2 present. No murmurs, rubs, or gallops. PULMONARY: Chest is clear to auscultation, no wheezing or crackles. -ABDOMEN: Soft, nontender, nondistended, normoactive bowel sounds. No palpable organomegaly. Arroyo catheter is in place MUSCULOSKELETAL: No joint swelling or deformity. EXTREMITIES: No cyanosis, clubbing, or pedal edema. NEUROLOGICAL: Gross neurological examination did not reveal any focal deficits. SKIN: No rashes. No petechiae - Labs CBC & Chem 7: 06/11/19 04:28 06/11/19 04:28 Labs: Abnormal Lab Results - Last 24 Hours (Table) 06/10/19 06/11/19 06/11/19 Range/Units 11:53 04:28 04:28 RBC 2.61 L (3.80-5.40) m/uL Hgb 8.4 L (11.4-16.0) gm/dL Hct 26.7 L (34.0-46.0) % MCV 102.2 H (80.0-100.0) fL Plt Count 123 L (150-450) k/uL Sodium 146 H (137-145) mmol/L Chloride 113 H (98-107) mmol/L POC Glucose (mg/dL) 101 H (75-99) mg/dL Calcium 8.3 L (8.4-10.2) mg/dL Magnesium 1.2 L (1.6-2.3) mg/dL 06/11/19 Range/Units 11:19 RBC (3.80-5.40) m/uL Hgb (11.4-16.0) gm/dL Hct (34.0-46.0) % MCV (80.0-100.0) fL Plt Count (150-450) k/uL Sodium (137-145) mmol/L Chloride (98-107) mmol/L POC Glucose (mg/dL) 118 H (75-99) mg/dL Calcium (8.4-10.2) mg/dL Magnesium (1.6-2.3) mg/dL Microbiology - Last 24 Hours (Table) 06/07/19 23:45 Blood Culture - Preliminary Blood No Growth after 72 hours 06/08/19 02:18 Urine Culture - Final Urine,Clean Catch Escherichia coli Assessment and Plan Assessment: Septic shock secondary to UTI Right hydronephrosis secondary with low suspicion for obstructing calculus by urologist, status post right ureteral catheter placement Fluid overload and pulmonary congestion, could be due to renal failure, improved Acute kidney injury and hyperkalemia, improving. However she is at-risk of hemodialysis Hypotension, on the presentation. Improved With Levophed Elevated lactic acid came back to normal GERD Hypertension Memory impairment Osteoarthritis Seizure disorder Restless leg syndrome history of CVA with hemiparesis Plan: this is a pleasant 84 years old female who presents with septic shock secondary to UTI and obstructive right side Stone and hydronephrosis, status post right ureteral catheter. Continue with antibiotics. Discontinue fluids. Follow-up recommendation by critical care team and urology. Her stop melatonin Labs and medication were reviewed. monitor hemoglobin. Continue same treatment. Continue with symptomatic treatment. Resume home medication. Monitor lytes and vitals. DVT and GI prophylaxis. Further recommendations of the clinical course of the patient DVT prophylaxis: Subcutaneous heparin GI Prophylaxis: Pepcid Possible discharge from 24-48 hours. Patient might benefit from palliative consult as an outpatient
[2019-06-11] MEDS: CIPROFLOXACIN HCL 500 MG TAB PO SCH ×2 (12:09→21:52)
[2019-06-11] MEDS: amLODIPine 5 MG TAB PO SCH (12:09)
[2019-06-11 16:54] LABS: Glucose,Whole Blood 99 mg/dL (75-99)
[2019-06-11 21:22] LABS: Glucose,Whole Blood 103 mg/dL (75-99)
[2019-06-11] MEDS: ASPIRIN 81 MG PO SCH (21:52)
[2019-06-11] MEDS: HEPARIN SODIUM,PORCINE 5,000 UNIT/ML 1 ML VIAL SQ SCH (21:52)
[2019-06-11] MEDS: PRIMIDONE 50 MG TAB PO SCH (21:53)
[2019-06-11 22:32] VITALS: PULSE 76; RESP 20
[2019-06-12] MEDS: LEVOTHYROXINE 50 MCG TAB PO SCH (05:36)
[2019-06-12] MEDS: ACETAMINOPHEN TAB 325 MG TAB PO PRN (05:40)
[2019-06-12 07:30] LABS: Glucose,Whole Blood 90 mg/dL (75-99)
[2019-06-12] MEDS: PANTOPRAZOLE 40 MG/10 ML VIAL IV SCH (07:55)
[2019-06-12] MEDS: amLODIPine 5 MG TAB PO SCH (07:56)
[2019-06-12] MEDS: SERTRALINE 100 MG TAB PO SCH (07:56)
[2019-06-12] MEDS: BACLOFEN 10 MG TAB PO SCH (07:56)
[2019-06-12] MEDS: HEPARIN SODIUM,PORCINE 5,000 UNIT/ML 1 ML VIAL SQ SCH (07:56)
[2019-06-12] MEDS: DIVALPROEX SPRINKLE 125 MG CAP.SPRINK PO SCH ×2 (07:56→17:18)
[2019-06-12] MEDS: LISINOPRIL 5 MG TAB PO SCH (07:57)
[2019-06-12] MEDS: CIPROFLOXACIN HCL 500 MG TAB PO SCH (07:57)
--- NOTE | 2019-06-12 08:54 | US ---
EXAMINATION TYPE: US venous doppler duplex LE DATE OF EXAM: 06/12/2019 7:25 AM COMPARISON: NONE CLINICAL HISTORY: Rule out DVT. No redness or swelling. Exam performed portable. Poor historian. SIDE PERFORMED: Bilateral TECHNIQUE: The lower extremity deep venous system is examined utilizing real time linear array sonog cb with graded compression, doppler sonography and color-flow sonography. VESSELS IMAGED: External Iliac Vein (EIV) Common Femoral Vein Deep Femoral Vein Greater Saphenous Vein * Femoral Vein Popliteal Vein Small Saphenous Vein * Proximal Calf Veins (* superficial vessels) Right Leg: Negative for DVT Left Leg: Negative for DVT. IMPRESSION: 1. No diagnostic evidence of DVT as visualized.
[2019-06-12 09:05] LABS: Magnesium 1.6 mg/dL (1.6-2.3); Potassium 5.2 mmol/L (3.5-5.1)
[2019-06-12] MEDS: FLUTICASONE 50MCG/SPRAY NASAL 16GM EA NOSTRIL SCH (11:36)
--- NOTE | 2019-06-12 12:03 | P.PN ---
Subjective Progress Note Date: 06/12/19 Principal diagnosis: Acute hypercapnic respiratory failure secondary to sepsis with septic shock and severe metabolic acidosis related to E. coli urinary tract infection On 06/12/2019 patient seen in follow-up on general medical floor. She is awake and alert, in no acute distress, she is currently on 2 L of oxygen, maintaining stable oxygenation, her pulse ox is 97%. Denies any difficulty breathing, no fever or chills, she is on ciprofloxacin for E. coli urinary tract infection, Arroyo catheter remains in place, no hematuria, patient is producing adequate amount of urine. Her lung sounds are clear diminished at the bases, no cough or congestion, patient is awake and alert, oriented 3, no altered mentation, she wants to go home. Urology is following in regards to her distal right ureteral calculi, and patient is status post cystoscopy and placement of right ureteral catheter on 06/09/2019. Objective - Vital Signs Vital signs: Vital Signs Temp 98.4 F 06/12/19 05:04 Pulse 76 06/12/19 05:04 Resp 20 06/12/19 08:00 BP 133/78 06/12/19 05:04 Pulse Ox 97 06/12/19 05:04 Intake & Output 06/11/19 06/12/19 06/12/19 18:59 06:59 18:59 Intake Total 790 Output Total 480 1100 Balance 310 -1100 Weight 96.3 kg 95.5 kg Intake: IV 250 Magnesium Sulfate-D5w Pmx 100 1 gm In Dextrose/Water 1 100ml.bag @ 100 mls/hr IVPB Q1H [facility] Rx#: [id number] Piperacillin-Tazobactam 3 100 .375 gm In Sodium Chloride 0.9% 100 ml @ 25 mls/hr IVPB Q8HR [facility] Rx# :[id number] Sodium Chloride 0.9% 1, 50 000 ml @ 50 mls/hr IV . Q20H [facility] Rx#:[id number] Oral 540 Output: Urine 480 800 Stool 300 Other: Voiding Method Indwelling Catheter Indwelling Catheter Indwelling Catheter ABP, PAP, CO, CI - Last Documented Arterial Blood Pressure 160/94 - Exam GENERAL EXAM: Alert, very pleasant, currently on 3 L of oxygen with a pulse ox of 97% comfortable in no apparent distress. HEAD: Normocephalic/atraumatic. EYES: Normal reaction of pupils, equal size. Conjunctiva pink, sclera white. NOSE: Clear with pink turbinates. THROAT: No erythema or exudates. NECK: No masses, no JVD, no thyroid enlargement, no adenopathy. CHEST: No chest wall deformity. Symmetrical expansion. LUNGS: Equal air entry with no crackles, wheeze, rhonchi or dullness. CVS: Regular rate and rhythm, normal S1 and S2, no gallops, no murmurs, no rubs ABDOMEN: Soft, nontender. No hepatosplenomegaly, normal bowel sounds, no guarding or rigidity. EXTREMITIES: No clubbing, no edema, no cyanosis, 2+ pulses and upper and lower extremities. MUSCULOSKELETAL: Muscle strength and tone normal. SPINE: No scoliosis or deformity SKIN: No rashes CENTRAL NERVOUS SYSTEM: Alert and oriented -3. No focal deficits, tone is normal in all 4 extremities. PSYCHIATRIC: Alert and oriented -3. Appropriate affect. Intact judgment and insight. - Labs CBC & Chem 7: 06/11/19 04:28 06/12/19 07:29 Labs: Abnormal Lab Results - Last 24 Hours (Table) 06/11/19 06/12/19 Range/Units 21:21 07:29 Potassium 5.2 H (3.5-5.1) mmol/L POC Glucose (mg/dL) 103 H (75-99) mg/dL Microbiology - Last 24 Hours (Table) 06/07/19 23:45 Blood Culture - Preliminary Blood No Growth after 96 hours Assessment and Plan Plan: Assessment: #1. Acute hypoxic respiratory failure related to septic shock liver due to E. coli urinary tract infection. She required intubation and mechanical ventilation, and she was successfully weaned and extubated on the 06/10/2019 #2. E. coli septic shock related to urinary tract infection #3. Right hydronephrosis, secondary to obstructing calculus, status post right- sided ureteral stent placement on 06/09/2019 #4. Acute kidney injury related to ATN, resolved #5. Acute metabolic acidosis secondary to septic shock improved, resolved #6. Benign essential hypertension #7. History of CVA #8. History of seizure disorder #9. History of degenerative joint disease #10. History of GERD #11. Anemia #12. Thrombocytopenia, likely related to sepsis, Plan: Patient is doing well, continue antibiotics or urology recommendations, hemodynamically stable, no respiratory complaints, wean FiO2, encourage deep breathing and coughing, increase activity as tolerated pulmonary critical care service will sign off and follow on as-needed basis I performed a history & physical examination of the patient and discussed their management with my nurse practitioner, Martha Robertson. I reviewed the nurse practitioner's note and agree with the documented findings and plan of care. Lung sounds are positive for diminished breath sounds. The findings and the impression was discussed with the patient. I attest to the documentation by the nurse practitioner. Time with Patient: Less than 30
[2019-06-12 12:18] LABS: Glucose,Whole Blood 101 mg/dL (75-99)
--- NOTE | 2019-06-12 13:45 | P.PN ---
Subjective Patient is seen in follow-up for acute kidney injury and hyperkalemia. Renal function is improved. Potassium level 5.2 today. Acidosis has improved. No complaints at this time. Vital signs are stable. General: The patient appeared well nourished and normally developed. HEENT: Head exam is unremarkable. Neck is without jugular venous distension. Intubated. LUNGS: Breath sounds decreased. HEART: Rate and Rhythm are regular. First and second heart sounds normal. No murmurs, rubs or gallops. ABDOMEN: Abdominal exam reveals normal bowel sounds. Non-tender and non- distended. No evidence of peritonitis. EXTREMITITES: No clubbing, cyanosis, or edema. Objective - Vital Signs Vital signs: Vital Signs Temp 98.4 F 06/12/19 05:04 Pulse 76 06/12/19 05:04 Resp 20 06/12/19 08:00 BP 133/78 06/12/19 05:04 Pulse Ox 97 06/12/19 05:04 Intake & Output 06/11/19 06/12/19 06/12/19 18:59 06:59 18:59 Intake Total 790 Output Total 480 1100 1000 Balance 310 -1100 -1000 Weight 96.3 kg 95.5 kg Intake: IV 250 Magnesium Sulfate-D5w Pmx 100 1 gm In Dextrose/Water 1 100ml.bag @ 100 mls/hr IVPB Q1H [facility] Rx#: [id number] Piperacillin-Tazobactam 3 100 .375 gm In Sodium Chloride 0.9% 100 ml @ 25 mls/hr IVPB Q8HR [facility] Rx# :[id number] Sodium Chloride 0.9% 1, 50 000 ml @ 50 mls/hr IV . Q20H [facility] Rx#:[id number] Oral 540 Output: Urine [id number] Uretheral (Arroyo) 1000 Stool 300 Other: Voiding Method Indwelling Catheter Indwelling Catheter Indwelling Catheter ABP, PAP, CO, CI - Last Documented Arterial Blood Pressure 160/94 - Labs CBC & Chem 7: 06/11/19 04:28 06/12/19 07:29 Labs: Abnormal Lab Results - Last 24 Hours (Table) 06/11/19 06/12/19 06/12/19 Range/Units 21:21 07:29 12:14 Potassium 5.2 H (3.5-5.1) mmol/L POC Glucose (mg/dL) 103 H 101 H (75-99) mg/dL Microbiology - Last 24 Hours (Table) 06/07/19 23:45 Blood Culture - Preliminary Blood No Growth after 96 hours Assessment and Plan Plan: Assessment: 1. Acute kidney injury mostly prerenal secondary to hypotension. Resolved. Mild right-sided hydronephrosis noted on ultrasound. 2. Hyperkalemia secondary to acute kidney injury and metabolic acidosis. Potassium slightly high today - she is on lisinopril. 3. Metabolic acidosis secondary to acute kidney injury. Better. 4. Septic shock secondary to UTI. Urine culture positive for E. coli. Off Levophed. 5. Acute hypercapnic respiratory failure. Extubated June 10. 6. Hypomagnesemia from poor oral intake. 7. Mild hypernatremia secondary to lack of oral water intake. Plan: Encouraged oral intake, including water. Replace magnesium. 2 g IV today. Repeat electrolytes in the morning. Monitor potassium - will d/c lisinopril if rises further.
[2019-06-12] MEDS ORDERED: MAGNESIUM SULFATE-D5W PMX 1 GM in DEXTROSE/WATER 1 100ML.BAG IVPB SCH (14:00)
[2019-06-12 15:45] VITALS: BP 157/78; TEMP 98.1
--- NOTE | 2019-06-12 17:06 | P.DS ---
Providers Date of admission: 06/08/19 04:11 Attending physician: Radha Phelps Consults: 06/08/19 04:08 Consult Physician Routine Consulting Provider: Heron Zavala Consult Reason/Comments: stone Do you want consulting provider notified?: Yes Consult Physician Routine Consulting Provider: Kanu Canales Consult Reason/Comments: ICU Do you want consulting provider notified?: Yes Consult Physician Urgent Consulting Provider: Jeniffer Kenyon Consult Reason/Comments: renalFail Do you want consulting provider notified?: Yes Primary care physician: [facility] Course: Diagnoses: Septic shock secondary to UTI, improved Right hydronephrosis secondary to and with low suspicion for obstructing calculus by urologist, status post right ureteral catheter placement Fluid overload and pulmonary congestion, could be due to renal failure, improved Acute kidney injury and hyperkalemia, improving. Patient did not need hemodialysis Hypotension, on the presentation. Improved Elevated lactic acid came back to normal GERD Hypertension Memory impairment Osteoarthritis Seizure disorder Restless leg syndrome history of CVA with hemiparesis Hospital course: This is a pleasant 84 years old female with past medical history of CVA with hemiparesis , GERD, hypertension, memory impairment, osteoarthritis , seizure disorder, restless leg syndrome. On the presentation patient was acidotic and she got intubated immediately. Patient was sent to the ICU for septic shock, received IV antibiotics, vasa pressors and IV fluids. Patient initially was treated with Zosyn. She's been followed by several consultants including pulmonary/critical care, urologist and cadd instructor as she had acute kidney injury and hyperkalemia and she was high risk for hemodialysis however she did not need eventually any dialysis. With therapy patient showed improvement, her blood pressure stabilized and she does not need any more pressors, she got extubated. Her mentation is went back to her baseline, she tolerated diet well, she can committed and understands as usual. Her leukocytosis came back to normal. CAT scan of the abdomen on admission showed right hydronephrosis there was possible of right kidney stone and urologist evaluated the patient however he wasn't sure about the kidney stone. Patient underwent cystoscopy with right uteral catheter placed and kept with the Lizama catheter with a recommendation for outpatient follow-up with urologist. Patient's urine culture came back positive for E. coli and patient was switched to Cipro. EKG was checked after started on Cipro and showed normal sinus rhythm at 80 per minute and her QTC was 422 are not prolonged. Patient will need antibiotics for 10-14 days per Urologist. On the day of discharge patient denies chest pain, abdominal pain, no nausea vomiting, no diarrhea. No fever. Lizama catheter and right ureteral catheter are in place. She still complaining of from mild right leg pain.venous doppler was negative for dvt also her potassium was high 5.2 , so dc lisinopril and pt was placed on amlodipine 10 mg daily Patient was cleared for discharge by all consultants including pulmonary, urologist and cadd instructor Problems and management plan were discussed with the patient and he verbalized understanding and acceptance Patient was found stable and can be discharged home however he needs follow-up as an outpatient. Patient was instructed to follow up with PCP within one week and patient agrees. Patient instructed to follow up with urologist in 1-2 weeks, an appointment is made for the pt with his urologist on 07/01 for possible removal of his lizama and ureteral catheter, please keep lizama catheter in till her appointment pt is recommended to have cadd instructor follow up as outpt in 2 week , monitor BP and potassium level Patient might benefit from palliative care consult as an outpatient We're comment a repeat urinalysis after finishing her course of oral antibiotic Gen: patient is a AAOx2-3, no distress CVS: S1-S2, RRR, no murmur Lungs: B/L CTA, no wheezing Abdomen: soft, no distention, no tenderness, positive bowel sounds Extremity: no leg edema or induration Time spent more than 35 minutes Patient Condition at Discharge: Critical Plan - Discharge Summary Discharge Rx Participant: No New Discharge Prescriptions: New Ciprofloxacin HCl [Cipro] 500 mg PO BID #20 tab Heparin Sodium,Porcine [Heparin Sodium] 5,000 unit SQ Q12HR vial amLODIPine [Norvasc] 5 mg PO DAILY tab Magnesium Oxide [Magox 400] 400 mg PO DAILY #60 tablet Continue Melatonin 9 mg PO HS PRN PRN Reason: Insomnia Ipratropium-Albuterol Nebulize [Duoneb 0.5 mg-3 mg/3 ml Soln] 3 ml INHALATION RT-Q4H PRN PRN Reason: Shortness Of Breath Acetaminophen Tab [Tylenol] 650 mg PO TID@0500,1300,2100 Methenamine Hippurate 1 gm PO BID Ascorbic Acid [Vitamin C] 1,000 mg PO BID Sertraline [Zoloft] 100 mg PO DAILY Divalproex [Depakote] 250 mg PO BID@0700,1600 Baclofen [Lioresal] 20 mg PO BID Cholecalciferol [Vitamin D3 (25 Mcg = 1000 Iu)] 7,000 unit PO MO Aspirin 81 mg PO HS Lisinopril [Zestril] 5 mg PO DAILY Levothyroxine Sodium [Synthroid] 50 mcg PO DAILY Lactulose 30 gm PO BID Primidone [Mysoline] 25 mg PO HS Lansoprazole [Prevacid] 15 mg PO DAILY Fluticasone Nasal [place] [Flonase Nasal [place]] 2 spr EA NOSTRIL DAILY rOPINIRole HCL [Requip] 0.5 mg PO TID@0700,1300,1900 traMADol HCL [Ultram] 50 mg PO TID #3 tab Discontinued amLODIPine [Norvasc] 10 mg PO DAILY Discharge Medication List Acetaminophen Tab [Tylenol] 650 mg PO TID@0500,1300,2100 09/18/18 [History] Ascorbic Acid [Vitamin C] 1,000 mg PO BID 09/18/18 [History] Aspirin 81 mg PO HS 09/18/18 [History] Baclofen [Lioresal] 20 mg PO BID 09/18/18 [History] Cholecalciferol [Vitamin D3 (25 Mcg = 1000 Iu)] 7,000 unit PO MO 09/18/18 [History] Divalproex [Depakote] 250 mg PO BID@0700,1600 09/18/18 [History] Ipratropium-Albuterol Nebulize [Duoneb 0.5 mg-3 mg/3 ml Soln] 3 ml INHALATION RT-Q4H PRN 09/18/18 [History] Levothyroxine Sodium [Synthroid] 50 mcg PO DAILY 09/18/18 [History] Melatonin 9 mg PO HS PRN 09/18/18 [History] Methenamine Hippurate 1 gm PO BID 09/18/18 [History] Sertraline [Zoloft] 100 mg PO DAILY 09/18/18 [History] Fluticasone Nasal [place] [Flonase Nasal [place]] 2 spr EA NOSTRIL DAILY 06/08/19 [History] Lactulose 30 gm PO BID 06/08/19 [History] Lansoprazole [Prevacid] 15 mg PO DAILY 06/08/19 [History] Primidone [Mysoline] 25 mg PO HS 06/08/19 [History] rOPINIRole HCL [Requip] 0.5 mg PO TID@0700,1300,1900 06/08/19 [History] Ciprofloxacin HCl [Cipro] 500 mg PO BID #20 tab 06/12/19 [Rx] Heparin Sodium,Porcine [Heparin Sodium] 5,000 unit SQ Q12HR vial 06/12/19 [Rx] Magnesium Oxide [Magox 400] 400 mg PO DAILY #60 tablet 06/12/19 [Rx] amLODIPine [Norvasc] 10 mg PO DAILY #30 tablet 06/12/19 [Rx] traMADol HCL [Ultram] 50 mg PO TID #3 tab 06/12/19 [Rx] Follow up Appointment(s)/Referral(s): Miguel Newton MD [Primary Care Provider] - 1-2 days [facility], [NON-STAFF] - 1 Week Stephon Evans MD [STAFF PHYSICIAN] - 07/01/19 2:20 pm Patient Instructions/Handouts: Ureteral Stones (DC) Activity/Diet/Wound Care/Special Instructions: Heart healthy diet Activity is limited till you see your doctor, fall precautions, up with assist. Turn q 2 hours. Elevate legs at rest. Ileostomy left quadrant Lizama catheter removed 06-12-19 at 1 pm. DNR code status, MRSA precautions. *Patient might benefit from palliative care consult as an outpatient *Follow up closely with urologist as an outpatient *repeat urinalysis after finishing her course of oral antibiotic monitor potassium level, if high then stop lisinopril and monitor BP Discharge Disposition: TRANSFER TO SNF/ECF
[2019-06-12 17:17] LABS: Glucose,Whole Blood 86 mg/dL (75-99)
--- NOTE | 2019-06-12 20:00 | P.PN ---
Progress Note - Text Progress Note Date: 06/12/19 The patient is afebrile and continues to improve clinically. White blood count is 8300. BUN/creatinine are 13/0.58. Unfortunately last night the right ureteral catheter became dislodged and fell out. Her Arroyo catheter was removed this morning. The patient is being transferred to a residential later today. She should be seen back in follow-up in approximately 3 weeks. If her renal function is normal at that time then CT scan of the abdomen and pelvis with IV contrast may be considered as it remains unclear whether the patient has multiple distal left ureteral calculi.
[2019-06-13] MEDS ORDERED: PANTOPRAZOLE 40 MG TABLET PO SCH (09:00)
[2019-06-16] MEDS ORDERED: CHOLECALCIFEROL 1,000 UNIT TAB PO SCH (09:00)
== END 2019-06-12 18:43 | DRG 853 ==
LOC: EC 23:13 → 2SICU 06-08 04:11 → 6NMEDSUR 06-11 10:24
PROVIDERS: ADMIT Hospitalist; ATTEND Hospitalist
PROC: 05HM33Z Insertion of Infusion Device into Right Internal Jugular Vein, Percutaneous Approach (ICD-10-PCS; 2019-06-07)
PROC: 03HC33Z Insertion of Infusion Device into Left Radial Artery, Percutaneous Approach (ICD-10-PCS; 2019-06-08)
PROC: 5A1945Z Respiratory Ventilation, 24-96 Consecutive Hours (ICD-10-PCS; 2019-06-08)
PROC: 0T9380Z Drainage of Right Kidney Pelvis with Drainage Device, Via Natural or Artificial Opening Endoscopic (ICD-10-PCS; principal; 2019-06-09)
DX: A41.51 Sepsis due to Escherichia coli [E. coli] (principal); J96.01 Acute respiratory failure with hypoxia; J96.02 Acute respiratory failure with hypercapnia; N17.0 Acute kidney failure with tubular necrosis; R65.21 Severe sepsis with septic shock; G93.41 Metabolic encephalopathy; E87.0 Hyperosmolality and hypernatremia; E87.4 Mixed disorder of acid-base balance; F05 Delirium due to known physiological condition; I69.359 Hemiplegia and hemiparesis following cerebral infarction affecting unspecified side; J98.11 Atelectasis; N13.6 Pyonephrosis; D69.59 Other secondary thrombocytopenia; F03.90 Unspecified dementia, unspecified severity, without behavioral disturbance, psychotic disturbance, mood disturbance, and anxiety; I11.9 Hypertensive heart disease without heart failure; D64.9 Anemia, unspecified; E83.42 Hypomagnesemia; E87.5 Hyperkalemia; E87.70 Fluid overload, unspecified; F41.9 Anxiety disorder, unspecified; G25.81 Restless legs syndrome; G40.909 Epilepsy, unspecified, not intractable, without status epilepticus; K21.0 Gastro-esophageal reflux disease with esophagitis; M19.90 Unspecified osteoarthritis, unspecified site; E07.9 Disorder of thyroid, unspecified; M79.604 Pain in right leg; Z79.82 Long term (current) use of aspirin; Z79.890 Hormone replacement therapy; Z79.899 Other long term (current) drug therapy; Z86.14 Personal history of Methicillin resistant Staphylococcus aureus infection; Z80.1 Family history of malignant neoplasm of trachea, bronchus and lung; Z82.5 Family history of asthma and other chronic lower respiratory diseases
CPT/HCPCS: 36415; 36556; 36600; 70450; 71045; 74176; 76770; 80048; 80053; 81001; 82550; 82805; 83605; 83735; 83880; 84100; 84132; 84443; 84484; 85025; 85610; 85730; 86704; 86706; 87040; 87077; 87086; 87186; 87340; 87502; 93005; 93970; 94002; 94003; 94640; 96360; 96361; 96365; 96366; 96367; 96375; 99291; 99292

== ENCOUNTER 2020-08-29 18:04 | Inpatient (IN) | payer MEDICARE, BC, OTHER ==
--- NOTE | 2020-08-29 18:50 | ED ---
General Adult HPI - General Chief complaint: Weakness Stated complaint: lethargic Time Seen by Provider: 08/29/20 18:48 Source: patient, EMS Mode of arrival: EMS Limitations: no limitations - History of Present Illness Initial comments: Patient presents to the ED by ambulance from her detention for evaluation. Per EMS, the patient was sent to the ED for evaluation of weakness and lethargy. Patient admits to feeling generally weak. Patient is complaining of having right flank pain, which she states she has had for the past few days. Patient also admits to feeling mildly short of breath. Patient denies trauma or injury, fever or chills, headache, focal numbness/weakness/neuro deficit, cough or cold symptoms, chest pain, palpitations, dizziness, nausea or vomiting, diarrhea or constipation, bloody or melanotic stool, dysuria/hematuria/urinary symptoms, leg or calf swelling or pain, or any other symptoms or complaints. Patient is reportedly being treated for UTI. - Related Data Home Medications Medication Instructions Recorded Confirmed Acetaminophen Tab [Tylenol] 650 mg PO TID@0500,1300,2100 09/18/18 08/29/20 Aspirin 81 mg PO HS@199909/18/18 08/29/20 Levothyroxine Sodium [Synthroid] 50 mcg PO DAILY@0500 09/18/18 08/29/20 Melatonin 3 mg PO HS@199909/18/18 08/29/20 Sertraline [Zoloft] 100 mg PO DAILY 09/18/18 08/29/20 Lactulose 30 gm PO BID 06/08/19 08/29/20 Primidone [Mysoline] 25 mg PO HS@199906/08/19 08/29/20 Allopurinol [Zyloprim] 300 mg PO DAILY 01/12/20 08/29/20 Carbidopa-Levodopa 25-100 mg 1 tab PO AC-BID@0700,1300 01/12/20 08/29/20 [Sinemet 25-100 mg] Mag Hydrox/Aluminum Hyd/Simeth 30 ml PO Q6H PRN 01/12/20 08/29/20 [Mylanta Maximum Strength Liq] Metoprolol Tartrate [Lopressor] 12.5 mg PO BID@0700,1900 01/12/20 08/29/20 rOPINIRole HCL [Requip] 0.5 mg PO TID@0700,1300,1900 01/12/20 08/29/20 Benzocaine [Anbesol] 1 applic MUCOUS MEM TID PRN 08/29/20 08/29/20 Benzocaine/Menthol [Cepacol Sore 1 lozenge MM Q4H PRN 08/29/20 08/29/20 Throat Lozenge] HYDROcodone/APAP 5-325MG [[employer] 1 tab PO Q8H PRN 08/29/20 08/29/20 5-325] Pantoprazole Sodium [Protonix] 40 mg PO DAILY 08/29/20 08/29/20 Simethicone Chew [Mylicon Chew] 80 mg PO AC-TID@07,12,17 08/29/20 08/29/20 amLODIPine [Norvasc] 10 mg PO DAILY@0500 08/29/20 08/29/20 levETIRAcetam [Keppra] 500 mg PO BID@0700,1900 08/29/20 08/29/20 traMADol HCL 50 mg PO Q6H 08/29/20 08/29/20 Previous Rx's Medication Instructions Recorded Baclofen [Lioresal] 10 mg PO DAILY tab 01/16/20 Allergies Allergy/AdvReac Type Severity Reaction Status Date / Time amoxicillin [From Augmentin] Allergy Unknown Verified 08/29/20 20:13 clavulanic acid Allergy Unknown Verified 08/29/20 20:13 [From Augmentin] codeine Allergy Unknown Verified 08/29/20 20:13 Review of Systems ROS Statement: Those systems with pertinent positive or pertinent negative responses have been documented in the HPI. ROS Other: All systems not noted in ROS Statement are negative. Past Medical History Past Medical History: CVA/TIA, GERD/Reflux, Hypertension, Memory Impairment, Osteoarthritis (OA), Seizure Disorder, Thyroid Disorder Additional Past Medical History / Comment(s): restless leg syndrome, hemiplegia, hemiparesis, anemia, History of Any Multi-Drug Resistant Organisms: ESBL, MRSA Date of last positivie culture/infection: 01/12/20 ESBL/ MRSA 2008 MDRO Source:: ESBL URINE MRSA STOOL Past Surgical History: Back Surgery, Cholecystectomy Additional Past Surgical History / Comment(s): ileostomy Past Anesthesia/Blood Transfusion Reactions: No Reported Reaction Past Psychological History: Anxiety Smoking Status: Never smoker Past Alcohol Use History: Unable to Obtain Past Drug Use History: Unable to Obtain - Past Family History Father Family Medical History: Cancer Additional Family Medical History / Comment(s): lung CA Mother Family Medical History: Cancer Sister(s) Additional Family Medical History / Comment(s): emphysema General Exam Limitations: altered mental status General appearance: alert, in no apparent distress Head exam: Present: atraumatic, normocephalic Eye exam: Present: normal appearance, PERRL, EOMI ENT exam: Present: mucous membranes moist Neck exam: Present: other (Trachea is in midline). Absent: tenderness, meningismus Respiratory exam: Present: normal lung sounds bilaterally. Absent: respiratory distress, wheezes, rales, rhonchi, stridor Cardiovascular Exam: Present: regular rate, normal rhythm, normal heart sounds, other (Normal radial pulses bilaterally) GI/Abdominal exam: Present: soft, normal bowel sounds, other (Obese abdomen; moderate epigastric/right upper quadrant abdominal tenderness; colostomy bag is in place). Absent: guarding, rebound Extremities exam: Absent: tenderness, pedal edema, calf tenderness Back exam: Absent: tenderness, CVA tenderness (R), CVA tenderness (L) Neurological exam: Present: alert, other (Patient is oriented to person and place, but not to time). Absent: motor sensory deficit Psychiatric exam: Present: normal affect, normal mood Skin exam: Present: warm, dry, intact, normal color Course Vital Signs 08/29/20 08/29/20 08/29/20 18:23 18:53 20:10 Temperature 99.7 F H 98.4 F Pulse Rate 74 94 Respiratory 16 16 18 Rate Blood Pressure 135/77 126/70 O2 Sat by Pulse 98 97 Oximetry 08/29/20 21:22 Temperature 101.3 F H Pulse Rate 96 Respiratory 18 Rate Blood Pressure 116/60 O2 Sat by Pulse 94 L Oximetry - Reevaluation(s) Reevaluation #1: 08/29/20 22:27 Case, H&P, test results and ED management thus far were discussed with Dr. Zavala (urology). He states that he will plan for ureteral stent placement tonight. He recommends admitting the patient to the patient's primary care service. He has no further recommendations at this time. 08/29/20 22:37 Case, H&P, test results, ED management and my discussion with Dr. Zavala as above were discussed with mid-level provider Meghan. She accepts admission on behalf of herself and Dr. Phelps. She has no further recommendations at this time. 08/29/20 22:53 Patient denies development of any new symptoms while in the ED. Patient states that her pain has improved with ED treatment. Patient remains alert and breathing comfortably. Patient is aware of her test results and my discussions as above. EKG Findings - EKG Comments: EKG Findings:: Normal sinus rhythm, occasional PACs, ventricular rate of 100 bpm, normal [place] and QRS intervals, normal QT interval, normal axis, no ST or T- wave abnormality Medical Decision Making - Medical Decision Making I suspect that the patient's pain and weakness are likely secondary to bilateral ureterolithiasis and urosepsis. Patient's lactic acid level is 2.4. Patient's Covid study is negative, and her chest x-ray is unremarkable. Patient has been treated with IV fluids and IV antibiotics in the ED. Dr. Zavala (urology) has been consulted, and he states that he will be taking the patient to the OR for stent placement. Mid-level provider Meghan has accepted hospital admission on behalf of herself and Dr. Phelps. - Lab Data Result diagrams: 08/29/20 19:48 08/29/20 19:48 Lab Results 08/29/20 08/29/20 08/29/20 Range/Units 19:48 19:48 19:48 WBC 21.1 H (3.8-10.6) k/uL RBC 3.89 (3.80-5.40) m/uL Hgb 12.2 (11.4-16.0) gm/dL Hct 39.0 (34.0-46.0) % MCV 100.2 H (80.0-100.0) fL MCH 31.2 (25.0-35.0) pg MCHC 31.2 (31.0-37.0) g/dL RDW 15.2 (11.5-15.5) % Plt Count 149 L (150-450) k/uL MPV 10.3 Neutrophils % (Manual) 83 % Band Neuts % (Manual) 14 % Lymphocytes % (Manual) 1 % Monocytes % (Manual) 2 % Neutrophils # (Manual) 20.40 H (1.3-7.7) k/uL Lymphocytes # (Manual) 0.21 L (1.0-4.8) k/uL Monocytes # (Manual) 0.42 (0-1.0) k/uL Nucleated RBCs 0 (0-0) /100 WBC Manual Slide Review Performed Toxic Granulation Present Polychromasia Present Hypochromasia Slight Anisocytosis (manual) Present Macrocytosis Slight PT 11.0 (9.0-12.0) sec INR 1.0 (<1.2) APTT 22.2 (22.0-30.0) sec Sodium (137-145) mmol/L Potassium (3.5-5.1) mmol/L Chloride (98-107) mmol/L Carbon Dioxide (22-30) mmol/L Anion Gap mmol/L BUN (7-17) mg/dL Creatinine (0.52-1.04) mg/dL Est GFR (CKD-EPI)AfAm (>60 ml/min/1.73 sqM) Est GFR (CKD-EPI)NonAf (>60 ml/min/1.73 sqM) Glucose (74-99) mg/dL Lactic Ac Sepsis Rflx Plasma Lactic Acid Flo (0.7-2.0) mmol/L Calcium (8.4-10.2) mg/dL Magnesium (1.6-2.3) mg/dL Total Bilirubin (0.2-1.3) mg/dL AST (14-36) U/L ALT (4-34) U/L Alkaline Phosphatase (38-126) U/L Troponin I (0.000-0.034) ng/mL NT-Pro-B Natriuret Pep pg/mL Total Protein (6.3-8.2) g/dL Albumin (3.5-5.0) g/dL Urine Color Yellow Urine Appearance Cloudy H (Clear) Urine pH 8.0 (5.0-8.0) Ur Specific [place] 1.011 (1.001-1.035) Urine Protein 1+ H (Negative) Urine Glucose (UA) Negative (Negative) Urine Ketones Negative (Negative) Urine Blood Moderate H (Negative) Urine Nitrite Negative (Negative) Urine Bilirubin Negative (Negative) Urine Urobilinogen <2.0 (<2.0) mg/dL Ur Leukocyte Esterase Large H (Negative) Urine RBC 53 H (0-5) /hpf Urine WBC 171 H (0-5) /hpf Ur Squamous Epith Cells 1 (0-4) /hpf Urine Bacteria Many H (None) /hpf Urine Mucus Rare H (None) /hpf Valproic Acid ug/mL Coronavirus (PCR) (Not Detectd) 08/29/20 08/29/20 08/29/20 Range/Units 19:48 19:48 19:48 WBC (3.8-10.6) k/uL RBC (3.80-5.40) m/uL Hgb (11.4-16.0) gm/dL Hct (34.0-46.0) % MCV (80.0-100.0) fL MCH (25.0-35.0) pg MCHC (31.0-37.0) g/dL RDW (11.5-15.5) % Plt Count (150-450) k/uL MPV Neutrophils % (Manual) % Band Neuts % (Manual) % Lymphocytes % (Manual) % Monocytes % (Manual) % Neutrophils # (Manual) (1.3-7.7) k/uL Lymphocytes # (Manual) (1.0-4.8) k/uL Monocytes # (Manual) (0-1.0) k/uL Nucleated RBCs (0-0) /100 WBC Manual Slide Review Toxic Granulation Polychromasia Hypochromasia Anisocytosis (manual) Macrocytosis PT (9.0-12.0) sec INR (<1.2) APTT (22.0-30.0) sec Sodium 136 L (137-145) mmol/L Potassium 3.9 (3.5-5.1) mmol/L Chloride 101 (98-107) mmol/L Carbon Dioxide 29 (22-30) mmol/L Anion Gap 6 mmol/L BUN 15 (7-17) mg/dL Creatinine 1.11 H (0.52-1.04) mg/dL Est GFR (CKD-EPI)AfAm 53 (>60 ml/min/1.73 sqM) Est GFR (CKD-EPI)NonAf 46 (>60 ml/min/1.73 sqM) Glucose 118 H (74-99) mg/dL Lactic Ac Sepsis Rflx Plasma Lactic Acid Flo 2.4 H* (0.7-2.0) mmol/L Calcium 9.4 (8.4-10.2) mg/dL Magnesium 1.4 L (1.6-2.3) mg/dL Total Bilirubin 0.9 (0.2-1.3) mg/dL AST 26 (14-36) U/L ALT 6 (4-34) U/L Alkaline Phosphatase 97 (38-126) U/L Troponin I 0.022 (0.000-0.034) ng/mL NT-Pro-B Natriuret Pep pg/mL Total Protein 7.9 (6.3-8.2) g/dL Albumin 3.6 (3.5-5.0) g/dL Urine Color Urine Appearance (Clear) Urine pH (5.0-8.0) Ur Specific [place] (1.001-1.035) Urine Protein (Negative) Urine Glucose (UA) (Negative) Urine Ketones (Negative) Urine Blood (Negative) Urine Nitrite (Negative) Urine Bilirubin (Negative) Urine Urobilinogen (<2.0) mg/dL Ur Leukocyte Esterase (Negative) Urine RBC (0-5) /hpf Urine WBC (0-5) /hpf Ur Squamous Epith Cells (0-4) /hpf Urine Bacteria (None) /hpf Urine Mucus (None) /hpf Valproic Acid <10.0 ug/mL Coronavirus (PCR) (Not Detectd) 08/29/20 08/29/20 08/29/20 Range/Units 19:48 19:48 20:25 WBC (3.8-10.6) k/uL RBC (3.80-5.40) m/uL Hgb (11.4-16.0) gm/dL Hct (34.0-46.0) % MCV (80.0-100.0) fL MCH (25.0-35.0) pg MCHC (31.0-37.0) g/dL RDW (11.5-15.5) % Plt Count (150-450) k/uL MPV Neutrophils % (Manual) % Band Neuts % (Manual) % Lymphocytes % (Manual) % Monocytes % (Manual) % Neutrophils # (Manual) (1.3-7.7) k/uL Lymphocytes # (Manual) (1.0-4.8) k/uL Monocytes # (Manual) (0-1.0) k/uL Nucleated RBCs (0-0) /100 WBC Manual Slide Review Toxic Granulation Polychromasia Hypochromasia Anisocytosis (manual) Macrocytosis PT (9.0-12.0) sec INR (<1.2) APTT (22.0-30.0) sec Sodium (137-145) mmol/L Potassium (3.5-5.1) mmol/L Chloride (98-107) mmol/L Carbon Dioxide (22-30) mmol/L Anion Gap mmol/L BUN (7-17) mg/dL Creatinine (0.52-1.04) mg/dL Est GFR (CKD-EPI)AfAm (>60 ml/min/1.73 sqM) Est GFR (CKD-EPI)NonAf (>60 ml/min/1.73 sqM) Glucose (74-99) mg/dL Lactic Ac Sepsis Rflx Y Plasma Lactic Acid Flo (0.7-2.0) mmol/L Calcium (8.4-10.2) mg/dL Magnesium (1.6-2.3) mg/dL Total Bilirubin (0.2-1.3) mg/dL AST (14-36) U/L ALT (4-34) U/L Alkaline Phosphatase (38-126) U/L Troponin I (0.000-0.034) ng/mL NT-Pro-B Natriuret Pep 1020 pg/mL Total Protein (6.3-8.2) g/dL Albumin (3.5-5.0) g/dL Urine Color Urine Appearance (Clear) Urine pH (5.0-8.0) Ur Specific [place] (1.001-1.035) Urine Protein (Negative) Urine Glucose (UA) (Negative) Urine Ketones (Negative) Urine Blood (Negative) Urine Nitrite (Negative) Urine Bilirubin (Negative) Urine Urobilinogen (<2.0) mg/dL Ur Leukocyte Esterase (Negative) Urine RBC (0-5) /hpf Urine WBC (0-5) /hpf Ur Squamous Epith Cells (0-4) /hpf Urine Bacteria (None) /hpf Urine Mucus (None) /hpf Valproic Acid ug/mL Coronavirus (PCR) Not Detected (Not Detectd) - Radiology Data Radiology results: report reviewed (Chest x-ray: No acute process; noncontrast CT abdomen/pelvis: 5 mm right distal ureter and left proximal ureter obstructing calculi with moderate hydronephrosis) Disposition Clinical Impression: Bilateral ureteral calculi, UTI (urinary tract infection), Sepsis Disposition: ADMITTED IP TO THIS HOSP Condition: Stable Is patient prescribed a controlled substance at d/c from ED?: No Referrals: Miguel Newton MD [Primary Care Provider] - 1-2 days Time of Disposition: 22:38
[2020-08-29] MEDS ORDERED: SODIUM CHLORIDE 0.9% 500 ML 500 ML IV STA (19:03)
[2020-08-29] MEDS ORDERED: MORPHINE SULFATE 4 MG/ML SYRINGE IV STA (19:03)
--- NOTE | 2020-08-29 20:15 | XR ---
EXAMINATION TYPE: XR chest 1V portable DATE OF EXAM: 08/29/2020 COMPARISON: 01/12/2020. HISTORY: Weakness. TECHNIQUE: Single frontal view of the chest is obtained. FINDINGS: There is no focal air space opacity, pleural effusion, or pneumothorax seen. The cardiac silhouette size is within normal limits. Stable hilar prominence may relate to lymphadenopathy versus enlarged pulmonary arteries. The osseous structures are intact. Left upper quadrant surgical clips again seen. IMPRESSION: No acute process.
[2020-08-29 20:18] LABS: Sodium 136 mmol/L (137-145)
[2020-08-29 20:20] LABS: ALT 6 U/L (4-34); AST 26 U/L (14-36); African American GFR (CKD) 53 (>60 ml/min/1.73 sqM); Albumin 3.6 g/dL (3.5-5.0); Alkaline Phosphatase 97 U/L (38-126); Anion Gap 6 mmol/L; Blood Urea Nitrogen 15 mg/dL (7-17); Calcium 9.4 mg/dL (8.4-10.2); Carbon Dioxide 29 mmol/L (22-30); Chloride 101 mmol/L (98-107); Glucose 118 mg/dL (74-99); Magnesium 1.4 mg/dL (1.6-2.3); Non-African American GFR(CKD) 46 (>60 ml/min/1.73 sqM); Potassium 3.9 mmol/L (3.5-5.1); Total Bilirubin 0.9 mg/dL (0.2-1.3); Total Protein 7.9 g/dL (6.3-8.2)
[2020-08-29 20:25] LABS: Valproic Acid (Depakene) <10.0 ug/mL
[2020-08-29 20:34] LABS: HGB 12.2 gm/dL (11.4-16.0); Hypochromasia Slight; MCH 31.2 pg (25.0-35.0); MCHC 31.2 g/dL (31.0-37.0); MCV 100.2 fL (80.0-100.0); Macrocytosis Slight; Mean Platelet Volume 10.3; Platelet Count 149 k/uL (150-450); RBC 3.89 m/uL (3.80-5.40); RDW 15.2 % (11.5-15.5); WBC 21.1 k/uL (3.8-10.6)
[2020-08-29 20:37] LABS: Partial Thromboplastin Time 22.2 sec (22.0-30.0)
--- NOTE | 2020-08-29 21:03 | CT ---
EXAMINATION TYPE: CT abdomen pelvis wo con DATE OF EXAM: 08/29/2020 COMPARISON: None available. HISTORY: abdominal pain, vomiting, fever CT DLP: 1253.4 mGycm Automated exposure control for dose reduction was used. TECHNIQUE: Helical acquisition of images was performed from the lung bases through the pelvis. FINDINGS: LUNG BASES: Trace right pleural effusion with bibasilar atelectasis. LIVER/GB: No significant abnormality is appreciated. Cholecystectomy. PANCREAS: No significant abnormality is seen. SPLEEN: No significant abnormality is seen. ADRENALS: No significant abnormality is seen. KIDNEYS: 5 mm calculus in the right distal ureter with moderate right hydronephrosis. Additional 5 mm calculus in the left proximal ureter with less pronounced moderate hydronephrosis. Also 3 mm layerin g calculus in the urinary bladder just distal to the left ureterovesicular junction. Mild urinary rayne dder wall thickening. FREE AIR: No free air is visualized RETROPERITONEAL ADENOPATHY: None visualized REPRODUCTIVE ORGANS: No significant abnormality is seen URINARY BLADDER: No significant abnormality is seen. PELVIC ADENOPATHY: None visualized. OSSEOUS STRUCTURES: No significant abnormality is seen. BOWEL: Partial colectomy and right ostomy is seen. No bowel obstruction, free air or fluid. Postsurg ical clips in the right. OTHER: Gluteal subcutaneous soft tissue dystrophic calcifications seen. IMPRESSION: 5 MM RIGHT DISTAL URETER AND LEFT PROXIMAL URETER OBSTRUCTING CALCULI WITH MODERATE HYDRONEPHROSIS. ADDITIONAL LAYERING CALCIFICATION IN THE LEFT URINARY BLADDER, COMPATIBLE WITH MILK OF CALCIUM. Chronic and incidental findings as above.
[2020-08-29 21:09] LABS: Band Neutrophils % 14 %; Lymphocytes # (M) 0.21 k/uL (1.0-4.8); Monocytes # (M) 0.42 k/uL (0-1.0); Neutrophils % (M) 83 %; Nucleated Red Blood Cells 0 /100 WBC (0-0); Total Cells Counted 100
[2020-08-29 21:10] LABS: Anisocytosis (M) Present; Polychromasia Present; Toxic Granulation Present
[2020-08-29] MEDS ORDERED: LEVOFLOXACIN 750MG-D5W PMX 750 MG in DEXTROSE/WATER 1 150ML.BAG IVPB STA (21:20)
[2020-08-29 22:23] LABS: Appearance,Urine Cloudy (Clear); Bacteria,Urine Many /hpf; Bilirubin,Urine Negative (Negative); Blood,Urine Moderate (Negative); Color,Urine Yellow; Glucose,Urine (UA) Negative (Negative); Ketones,Urine Negative (Negative); Leukocyte Esterase,Urine Large (Negative); Mucus,Urine Rare /hpf; Nitrite,Urine Negative (Negative); Protein,Urine 1+ (Negative); RBC,Urine 53 /hpf (0-5); Specific Gravity,Urine 1.011 (1.001-1.035); Squamous Epithelial Cell,Urine 1 /hpf (0-4); Urobilinogen,Urine <2.0 mg/dL (<2.0); WBC,Urine 171 /hpf (0-5)
[2020-08-29] MEDS ORDERED: MORPHINE SULFATE 4 MG/ML SYRINGE IV PRN (22:48)
[2020-08-29] MEDS ORDERED: NALOXONE 0.4 MG/ML 1 ML VIAL IV PRN (22:48)
[2020-08-29] MEDS ORDERED: ONDANSETRON 4 MG/2 ML VIAL IVP PRN (22:48)
--- NOTE | 2020-08-29 23:36 | P.GSCN ---
History of Present Illness Consult date: 08/29/20 Reason for Consult: UTI with sepsis Requesting physician: Radha Phelps History of present illness: The patient is an 85-year-old white female who [facility]. She has a history of multiple medical problems including hypertension, GERD, history of previous CVA, dementia, seizure disorder, and restless leg syndrome. She is being treated for a UTI. She has a history of kidney stones. She was transferred to the emergency room for evaluation of weakness and lethargy. She is a vague historian but reports abdominal pain which is predominantly right sided. Evaluation in the emergency room has shown her to be febrile with an elevated WBC count. Urinalysis is consistent with infection, and CT scan shows bilateral ureteral obstructing calculi. Review of Systems - Constitutional Reports fever - Gastrointestinal Reports abdominal pain - Genitourinary Genitourinary: Reports flank pain, Reports kidney stones Past Medical History Past Medical History: CVA/TIA, GERD/Reflux, Hypertension, Memory Impairment, Osteoarthritis (OA), Seizure Disorder, Thyroid Disorder Additional Past Medical History / Comment(s): restless leg syndrome, hemiplegia, hemiparesis, anemia, History of Any Multi-Drug Resistant Organisms: ESBL, MRSA Year Discovered:: 01/12/20 ESBL/ MRSA 2008 MDRO Source:: ESBL URINE MRSA STOOL Past Surgical History: Back Surgery, Cholecystectomy Additional Past Surgical History / Comment(s): ileostomy Past Anesthesia/Blood Transfusion Reactions: No Reported Reaction Past Psychological History: Anxiety Smoking Status: Never smoker Past Alcohol Use History: Unable to Obtain Past Drug Use History: Unable to Obtain - Past Family History Father Family Medical History: Cancer Additional Family Medical History / Comment(s): lung CA Mother Family Medical History: Cancer Sister(s) Additional Family Medical History / Comment(s): emphysema Medications and Allergies Home Medications Medication Instructions Recorded Confirmed Type Acetaminophen Tab [Tylenol] 650 mg PO TID@0500,1300,2100 09/18/18 08/29/20 History Aspirin 81 mg PO HS@199909/18/18 08/29/20 History Levothyroxine Sodium [Synthroid] 50 mcg PO DAILY@0500 09/18/18 08/29/20 History Melatonin 3 mg PO HS@199909/18/18 08/29/20 History Sertraline [Zoloft] 100 mg PO DAILY 09/18/18 08/29/20 History Lactulose 30 gm PO BID 06/08/19 08/29/20 History Primidone [Mysoline] 25 mg PO HS@199906/08/19 08/29/20 History Allopurinol [Zyloprim] 300 mg PO DAILY 01/12/20 08/29/20 History Carbidopa-Levodopa 25-100 mg 1 tab PO AC-BID@0700,1300 01/12/20 08/29/20 History [Sinemet 25-100 mg] Mag Hydrox/Aluminum Hyd/Simeth 30 ml PO Q6H PRN 01/12/20 08/29/20 History [Mylanta Maximum Strength Liq] Metoprolol Tartrate [Lopressor] 12.5 mg PO BID@0700,1900 01/12/20 08/29/20 History rOPINIRole HCL [Requip] 0.5 mg PO TID@0700,1300,1900 01/12/20 08/29/20 History Baclofen [Lioresal] 10 mg PO DAILY tab 01/16/20 08/29/20 Rx Benzocaine [Anbesol] 1 applic MUCOUS MEM TID PRN 08/29/20 08/29/20 History Benzocaine/Menthol [Cepacol Sore 1 lozenge MM Q4H PRN 08/29/20 08/29/20 History Throat Lozenge] HYDROcodone/APAP 5-325MG [[place] 1 tab PO Q8H PRN 08/29/20 08/29/20 History 5-325] Pantoprazole Sodium [Protonix] 40 mg PO DAILY 08/29/20 08/29/20 History Simethicone Chew [Mylicon Chew] 80 mg PO AC-TID@07,12,17 08/29/20 08/29/20 History amLODIPine [Norvasc] 10 mg PO DAILY@0500 08/29/20 08/29/20 History levETIRAcetam [Keppra] 500 mg PO BID@0700,1900 08/29/20 08/29/20 History traMADol HCL 50 mg PO Q6H 08/29/20 08/29/20 History Allergies Allergy/AdvReac Type Severity Reaction Status Date / Time amoxicillin [From Augmentin] Allergy Unknown Verified 08/29/20 20:13 clavulanic acid Allergy Unknown Verified 08/29/20 20:13 [From Augmentin] codeine Allergy Unknown Verified 08/29/20 20:13 Surgical - Exam Vital Signs Temp Pulse Resp BP Pulse Ox 99.7 F H 74 16 135/77 98 08/29/20 18:23 08/29/20 18:23 08/29/20 18:23 08/29/20 18:23 08/29/20 18:23 - General well developed, well nourished, no distress - Respiratory normal respiratory effort - Abdomen Soft, non-distended. Mild right-sided tenderness, no guarding. Right lower quadrant ileostomy. - Psychiatric oriented to time, oriented to person, oriented to place, speech is normal, memory intact Results - Labs 08/29/20 19:48 08/29/20 19:48 Abnormal Lab Results - Last 24 Hours (Table) 08/29/20 08/29/20 08/29/20 Range/Units 19:48 19:48 19:48 WBC 21.1 H (3.8-10.6) k/uL MCV 100.2 H (80.0-100.0) fL Plt Count 149 L (150-450) k/uL Neutrophils # (Manual) 20.40 H (1.3-7.7) k/uL Lymphocytes # (Manual) 0.21 L (1.0-4.8) k/uL Sodium 136 L (137-145) mmol/L Creatinine 1.11 H (0.52-1.04) mg/dL Glucose 118 H (74-99) mg/dL Plasma Lactic Acid Flo (0.7-2.0) mmol/L Magnesium 1.4 L (1.6-2.3) mg/dL Urine Appearance Cloudy H (Clear) Urine Protein 1+ H (Negative) Urine Blood Moderate H (Negative) Ur Leukocyte Esterase Large H (Negative) Urine RBC 53 H (0-5) /hpf Urine WBC 171 H (0-5) /hpf Urine Bacteria Many H (None) /hpf Urine Mucus Rare H (None) /hpf 08/29/20 Range/Units 19:48 WBC (3.8-10.6) k/uL MCV (80.0-100.0) fL Plt Count (150-450) k/uL Neutrophils # (Manual) (1.3-7.7) k/uL Lymphocytes # (Manual) (1.0-4.8) k/uL Sodium (137-145) mmol/L Creatinine (0.52-1.04) mg/dL Glucose (74-99) mg/dL Plasma Lactic Acid Flo 2.4 H* (0.7-2.0) mmol/L Magnesium (1.6-2.3) mg/dL Urine Appearance (Clear) Urine Protein (Negative) Urine Blood (Negative) Ur Leukocyte Esterase (Negative) Urine RBC (0-5) /hpf Urine WBC (0-5) /hpf Urine Bacteria (None) /hpf Urine Mucus (None) /hpf Diabetes panel 08/29/20 Range/Units 19:48 Sodium 136 L (137-145) mmol/L Potassium 3.9 (3.5-5.1) mmol/L Chloride 101 (98-107) mmol/L Carbon Dioxide 29 (22-30) mmol/L BUN 15 (7-17) mg/dL Creatinine 1.11 H (0.52-1.04) mg/dL Glucose 118 H (74-99) mg/dL Calcium 9.4 (8.4-10.2) mg/dL AST 26 (14-36) U/L ALT 6 (4-34) U/L Alkaline Phosphatase 97 (38-126) U/L Total Protein 7.9 (6.3-8.2) g/dL Albumin 3.6 (3.5-5.0) g/dL Calcium panel 08/29/20 Range/Units 19:48 Calcium 9.4 (8.4-10.2) mg/dL Albumin 3.6 (3.5-5.0) g/dL Pituitary panel 08/29/20 Range/Units 19:48 Sodium 136 L (137-145) mmol/L Potassium 3.9 (3.5-5.1) mmol/L Chloride 101 (98-107) mmol/L Carbon Dioxide 29 (22-30) mmol/L BUN 15 (7-17) mg/dL Creatinine 1.11 H (0.52-1.04) mg/dL Glucose 118 H (74-99) mg/dL Calcium 9.4 (8.4-10.2) mg/dL Adrenal panel 08/29/20 Range/Units 19:48 Sodium 136 L (137-145) mmol/L Potassium 3.9 (3.5-5.1) mmol/L Chloride 101 (98-107) mmol/L Carbon Dioxide 29 (22-30) mmol/L BUN 15 (7-17) mg/dL Creatinine 1.11 H (0.52-1.04) mg/dL Glucose 118 H (74-99) mg/dL Calcium 9.4 (8.4-10.2) mg/dL Total Bilirubin 0.9 (0.2-1.3) mg/dL AST 26 (14-36) U/L ALT 6 (4-34) U/L Alkaline Phosphatase 97 (38-126) U/L Total Protein 7.9 (6.3-8.2) g/dL Albumin 3.6 (3.5-5.0) g/dL - Imaging CT scan - abdomen: report reviewed, image reviewed Assessment and Plan (1) Acute pyelonephritis Current Visit: Yes Status: Acute Code(s): N10 - ACUTE PYELONEPHRITIS SNOMED Code(s): 31837234 (2) Bilateral ureteral calculi Current Visit: Yes Status: Acute Code(s): N20.1 - CALCULUS OF URETER SNOMED Code(s): 01795098 (3) Hydronephrosis with renal and ureteral calculous obstruction Current Visit: Yes Status: Acute Code(s): N13.2 - HYDRONEPHROSIS WITH RENAL AND URETERAL CALCULOUS OBSTRUCTION SNOMED Code(s): 953378802 Plan: Urinalysis is consistent with infection. Given the combination of fever, leukocytosis, and elevated lactic acid level, she appears to have acute pyelonephritis complicated by bilateral ureteral calculi. CT scan shows bilateral moderate hydronephrosis. She has a left proximal ureteral calculus which measures approximately 7 mm in size, and a 5 mm right distal ureteral calculus. She will undergo emergent placement of bilateral ureteral stents. I discussed this with her, and I also called her daughter to make her aware of the planned procedure. Time with Patient: Greater than 30
[2020-08-29] MEDS ORDERED: LACTATED RINGERS 1,000 ML IV ONE (23:44)
[2020-08-29] MEDS ORDERED: SUCCINYLCHOLINE CHLORIDE 100 MG/5 ML SYR IV ONE (23:44)
[2020-08-29] MEDS ORDERED: ePHEDrine SULFATE/0.9% NACL/PF 50 MG/5 ML SYRINGE IV ONE (23:44)
[2020-08-29] MEDS ORDERED: LIDOCAINE 1% INJ 10MG/ML (20 ML MDV) ONE (23:44)
[2020-08-29] MEDS ORDERED: PROPOFOL 10 MG/ML 20 ML VIAL IV ONE (23:44)
[2020-08-29] MEDS ORDERED: PHENYLEPHRINE-0.9% NACL SYG 1,000 MCG/10 ML SYRINGE ONE (23:44)
[2020-08-30] MEDS ORDERED: LACTATED RINGERS 1,000 ML IV ONE (00:31)
--- NOTE | 2020-08-30 00:45 | P.OP ---
Date of Procedure: 08/30/20 Preoperative Diagnosis: I lateral hydronephrosis secondary to bilateral ureteral calculi Postoperative Diagnosis: Same Procedure(s) Performed: Cystoscopy, bilateral ureteral stent insertion Anesthesia: PRIYAA Surgeon: Heron Zavala Estimated Blood Loss (ml): 0 IV fluids (ml): 1,000 Pathology: none sent Condition: stable Disposition: PACU Indications for Procedure: The patient is an 85-year-old white female who resides at a long-term. Evaluation in the emergency room has shown her to be febrile with an elevated WBC count. CT scan shows bilateral moderate hydronephrosis. She has a left proximal ureteral calculus which measures approximately 7 mm in size, and a 5 mm right distal ureteral calculus. Urinalysis is consistent with infection, and she thus comes for stent placement. Operative Findings: Successful bilateral ureteral stent placement. Significant right pyonephrosis. Description of Procedure: The patient was taken to the operating room and placed in the dorsolithotomy p osition, with legs supported in Marco Antonio stirrups. The external genitalia was prepped and draped sterilely. The 30 lens was used to introduce the 22-Eritrean Stortz cystoscopic sheath through the urethra and into the bladder under direct vision. The bladder was examined in its entirety. A whitish film covered much of the bladder mucosa. No calculi were seen. No tumors were seen. The right ureteral orifice was identified. It was increased in caliber, with some purulent urine draining from it. A 5-Eritrean open-ended catheter was passed through the cystoscope. An angle-tip 0.035 inch Glidewire was passed through the ureteral catheter. The right ureteral orifice was cannulated, and the Glidewire was slowly advanced up to the renal pelvis. The ureter was somewhat tortuous, extending to the midline within the mid to proximal ureter. A 24 cm, 6-Eritrean double-J ureteral stent was placed over the wire. Proper stent positioning was verified fluoroscopically and endoscopically. Grossly purulent urine drained through the stent. A left ureteral stent was placed in an identical fashion. The stent drained urine from the left renal pelvis which was slightly cloudy in appearance. The beak of the cystoscope was placed immediately adjacent to the distal end of the right ureteral stent. Urine was collected and sent for culture and sensitivity. The cystoscope was removed. A 16-Eritrean Arroyo catheter was placed. The urine draining through the catheter was grossly purulent. The patient tolerated the procedure well was taken to the recovery room in stable condition.
[2020-08-30] MEDS: SODIUM CHLORIDE 0.9% 1,000 ML IV SCH ×3 (01:44→16:25)
[2020-08-30 03:17] LABS: HCT 35.8 % (34.0-46.0); HGB 10.6 gm/dL (11.4-16.0); Hypochromasia Marked; MCH 30.6 pg (25.0-35.0); MCHC 29.6 g/dL (31.0-37.0); MCV 103.3 fL (80.0-100.0); Macrocytosis Slight; Mean Platelet Volume 10.7; Platelet Count 148 k/uL (150-450); RBC 3.46 m/uL (3.80-5.40); RDW 15.2 % (11.5-15.5)
[2020-08-30 03:21] LABS: AST 34 U/L (14-36); African American GFR (CKD) 47 (>60 ml/min/1.73 sqM); Alkaline Phosphatase 65 U/L (38-126); Anion Gap 9 mmol/L; Blood Urea Nitrogen 18 mg/dL (7-17); Calcium 8.8 mg/dL (8.4-10.2); Carbon Dioxide 23 mmol/L (22-30); Chloride 103 mmol/L (98-107); Glucose 110 mg/dL (74-99); Non-African American GFR(CKD) 41 (>60 ml/min/1.73 sqM); Potassium 4.4 mmol/L (3.5-5.1); Sodium 135 mmol/L (137-145); Total Bilirubin 0.7 mg/dL (0.2-1.3); Total Protein 6.8 g/dL (6.3-8.2)
[2020-08-30] MEDS ORDERED: SODIUM CHLORIDE 0.9% 500 ML 500 ML IV ONE ×2 (03:48→07:00)
[2020-08-30 04:34] LABS: ALT <6 U/L (4-34)
[2020-08-30 06:11] LABS: Anisocytosis (M) Present; Band Neutrophils % 20 %; Lymphocytes # (M) 0.84 k/uL (1.0-4.8); Monocytes # (M) 0.84 k/uL (0-1.0); Neutrophils % (M) 74 %; Nucleated Red Blood Cells 0 /100 WBC (0-0); Polychromasia Present; Total Cells Counted 100
--- NOTE | 2020-08-30 06:48 | XR ---
EXAMINATION TYPE: XR chest 1V portable DATE OF EXAM: 08/30/2020 CLINICAL HISTORY: Difficulty breathing progress study. TECHNIQUE: Single AP portable upright view of the chest is obtained. COMPARISON: Chest x-ray from one day earlier and older studies. Chest CT January 13, 2020. FINDINGS: There is background chronic emphysematous change with developing bilateral multifocal opac ities. Stable cardiomegaly with atherosclerotic aorta. Stable increased soft tissue density right par atracheal region. Surgical clips left upper quadrant redemonstrated. Underlying scoliotic curvature r edemonstrated IMPRESSION: Chronic emphysematous and pulmonary fibrotic changes with new bilateral multifocal opacit ies, correlate for covid-19 infection in current environment.
--- NOTE | 2020-08-30 08:45 | P.PN ---
Progress Note - Text Progress Note Date: 08/30/20 The patient is considerably more alert this morning. She is afebrile. She is tolerating breakfast. The urine is slightly cloudy in appearance, much improved. Continue IV antibiotics, pending the culture results. I explained to her that after the infection has cleared, she will undergo cystoscopy, bilateral ureteral stent removal, bilateral ureteroscopy with laser lithotripsy.
[2020-08-30] MEDS ORDERED: LEVOFLOXACIN 500MG-D5W PMX 500 MG in DEXTROSE/WATER 1 100ML.BAG IVPB SCH (09:00)
[2020-08-30] MEDS: HYDROcodone/APAP 5-325MG 1 EACH TAB PO PRN ×2 (09:06→16:25)
--- NOTE | 2020-08-30 09:21 | FL ---
EXAMINATION TYPE: FL guidance operating room DATE OF EXAM: 08/30/2020 HISTORY: Fluoroscopy time Less than 1 minute seconds of fluoroscopy provided. IMPRESSION: 1. Fluoroscopy time.
[2020-08-30] MEDS ORDERED: MAG HYDROX/AL HYDROX/SIMETH 30 ML CUP PO PRN (10:27)
[2020-08-30] MEDS ORDERED: BENZOCAINE/MENTHOL LOZENG 1 EACH LOZENGE MUCOUS MEM PRN (10:27)
[2020-08-30] MEDS ORDERED: BENZOCAINE 20 % GEL 15 GM TUBE MM PRN (10:27)
[2020-08-30 10:33] LABS: African American GFR (CKD) 40 (>60 ml/min/1.73 sqM); Anion Gap 6 mmol/L; Blood Urea Nitrogen 22 mg/dL (7-17); Calcium 8.1 mg/dL (8.4-10.2); Carbon Dioxide 28 mmol/L (22-30); Chloride 101 mmol/L (98-107); Glucose 105 mg/dL (74-99); Non-African American GFR(CKD) 35 (>60 ml/min/1.73 sqM); Potassium 4.3 mmol/L (3.5-5.1); Sodium 135 mmol/L (137-145)
[2020-08-30 10:35] LABS: Basophils % (A) 0 %; Eosinophils # (A) 0.1 k/uL (0-0.7); Eosinophils % (A) 0 %; HCT 30.5 % (34.0-46.0); HGB 9.2 gm/dL (11.4-16.0); Hypochromasia Marked; Lymphocytes # (A) 1.4 k/uL (1.0-4.8); Lymphocytes % (A) 6 %; MCH 31.3 pg (25.0-35.0); MCHC 30.3 g/dL (31.0-37.0); MCV 103.2 fL (80.0-100.0); Macrocytosis Slight; Mean Platelet Volume 11.3; Monocytes # (A) 1.1 k/uL (0-1.0); Monocytes % (A) 5 %; Neutrophils # (A) 20.8 k/uL (1.3-7.7); Neutrophils % (A) 88 %; Platelet Count 161 k/uL (150-450); RBC 2.96 m/uL (3.80-5.40); RDW 15.6 % (11.5-15.5); WBC 23.6 k/uL (3.8-10.6)
[2020-08-30] MEDS: traMADol 50 MG TAB PO SCH ×3 (10:58→23:58)
[2020-08-30] MEDS: PANTOPRAZOLE 40 MG TABLET PO SCH (10:58)
[2020-08-30] MEDS: allopurinoL 300 MG TAB PO SCH (10:58)
[2020-08-30] MEDS ORDERED: MEROPENEM 500 MG in SODIUM CHLORIDE 0.9% 100 ML IVPB SCH (11:00)
[2020-08-30] MEDS ORDERED: MEROPENEM 0.5 GM in SODIUM CHLORIDE 0.9% 100 ML IVPB SCH (11:00)
[2020-08-30] MEDS: CARBIDOPA-LEVODOPA 25-100 MG 1 EACH TAB PO SCH (11:18)
[2020-08-30] MEDS: SIMETHICONE 80 MG CHEWABLE PO SCH ×2 (11:18→16:52)
[2020-08-30] MEDS: SERTRALINE 100 MG TAB PO SCH (11:18)
[2020-08-30 11:44] LABS: Band Neutrophils % 14 %; Lymphocytes # (M) 0.94 k/uL (1.0-4.8); Monocytes # (M) 1.65 k/uL (0-1.0); Neutrophils % (M) 76 %; Nucleated Red Blood Cells 0 /100 WBC (0-0); Total Cells Counted 200
[2020-08-30 11:45] LABS: Basophilic Stippling Present
--- NOTE | 2020-08-30 12:43 | P.HPIM ---
History of Present Illness 85-year-old female [facility] after she started complaining of pain in the right flank area moderate severity sharp and crampy in nature found to have bilateral obstructing ureteral stones from the CT urine analysis significantly abnormal consistent with infection and purulent drainage patient presently has a Arroyo catheter, patient underwent cystoscopy and ureteral stent placement. Patient was febrile with elevated white blood cell count chest x-ray mostly is consistent with pulmonary edema on the BNP is only minimally elevated and patient has lactic acidosis because of which I'm continuing antibiotics patient had lactic as well as on 3.2. Covid 19 was negative patient had ESBL Proteus in the urine in the past because of which patient's levofloxacin is being switched to meropenem and infectious disease will evaluated the patient patient also has a stage II sacral decubitus ulcer for which wound care is being consulted Review of Systems REVIEW OF SYSTEMS: CONSTITUTIONAL: As mentioned in HPI HEENT: No recent visual problems or hearing problems. Denied any sore throat. CARDIOVASCULAR: No chest pain, orthopnea, PND, no palpitations, no syncope. PULMONARY: No shortness of breath, no cough, no hemoptysis. GASTROINTESTINAL: As mentioned in HPI NEUROLOGICAL: No headaches, no weakness, no numbness. HEMATOLOGICAL: Denies any bleeding or petechiae. GENITOURINARY: Denies any burning micturition, frequency, or urgency. MUSCULOSKELETAL/RHEUMATOLOGICAL: Denies any joint pain, swelling, or any muscle pain. ENDOCRINE: Denies any polyuria or polydipsia. The rest of the 14-point review of systems is negative. Past Medical History Past Medical History: CVA/TIA, GERD/Reflux, Hypertension, Memory Impairment, Osteoarthritis (OA), Seizure Disorder, Thyroid Disorder Additional Past Medical History / Comment(s): restless leg syndrome, hemiplegia, hemiparesis, anemia, History of Any Multi-Drug Resistant Organisms: ESBL, MRSA Date of last positivie culture/infection: 01/12/20 ESBL/ MRSA 2009 MDRO Source:: ESBL URINE MRSA STOOL Past Surgical History: Back Surgery, Cholecystectomy Additional Past Surgical History / Comment(s): ileostomy Past Anesthesia/Blood Transfusion Reactions: No Reported Reaction Past Psychological History: Anxiety Smoking Status: Never smoker Past Alcohol Use History: Unable to Obtain Past Drug Use History: Unable to Obtain - Past Family History Father Family Medical History: Cancer Additional Family Medical History / Comment(s): lung CA Mother Family Medical History: Cancer Sister(s) Additional Family Medical History / Comment(s): emphysema Medications and Allergies Home Medications Medication Instructions Recorded Confirmed Type Acetaminophen Tab [Tylenol] 650 mg PO TID@0500,1300,2100 09/18/18 08/29/20 His tory Aspirin 81 mg PO HS@199909/18/18 08/29/20 History Levothyroxine Sodium [Synthroid] 50 mcg PO DAILY@0500 09/18/18 08/29/20 History Melatonin 3 mg PO HS@199909/18/18 08/29/20 History Sertraline [Zoloft] 100 mg PO DAILY 09/18/18 08/29/20 History Lactulose 30 gm PO BID 06/08/19 08/29/20 History Primidone [Mysoline] 25 mg PO HS@199906/08/19 08/29/20 History Allopurinol [Zyloprim] 300 mg PO DAILY 01/12/20 08/29/20 History Carbidopa-Levodopa 25-100 mg 1 tab PO AC-BID@0700,1300 01/12/20 08/29/20 History [Sinemet 25-100 mg] Mag Hydrox/Aluminum Hyd/Simeth 30 ml PO Q6H PRN 01/12/20 08/29/20 History [Mylanta Maximum Strength Liq] Metoprolol Tartrate [Lopressor] 12.5 mg PO BID@0700,1900 01/12/20 08/29/20 History rOPINIRole HCL [Requip] 0.5 mg PO TID@0700,1300,1900 01/12/20 08/29/20 History Baclofen [Lioresal] 10 mg PO DAILY tab 01/16/20 08/29/20 Rx Benzocaine [Anbesol] 1 applic MUCOUS MEM TID PRN 08/29/20 08/29/20 History Benzocaine/Menthol [Cepacol Sore 1 lozenge MM Q4H PRN 08/29/20 08/29/20 History Throat Lozenge] HYDROcodone/APAP 5-325MG [Mallory 1 tab PO Q8H PRN 08/29/20 08/29/20 History 5-325] Pantoprazole Sodium [Protonix] 40 mg PO DAILY 08/29/20 08/29/20 History Simethicone Chew [Mylicon Chew] 80 mg PO AC-TID@07,12,17 08/29/20 08/29/20 History amLODIPine [Norvasc] 10 mg PO DAILY@0500 08/29/20 08/29/20 History levETIRAcetam [Keppra] 500 mg PO BID@0700,1900 08/29/20 08/29/20 History traMADol HCL 50 mg PO Q6H 08/29/20 08/29/20 History Allergies Allergy/AdvReac Type Severity Reaction Status Date / Time amoxicillin [From Augmentin] Allergy Unknown Verified 08/29/20 20:13 clavulanic acid Allergy Unknown Verified 08/29/20 20:13 [From Augmentin] codeine Allergy Unknown Verified 08/29/20 20:13 Physical Exam Vitals: Vital Signs Temp Pulse Pulse Pulse Resp BP BP 08/30/20 11:07 105 H 100/50 08/30/20 10:47 98.8 F 72 20 162/90 08/30/20 07:30 98.3 F 89 94 20 115/63 08/30/20 07:15 08/30/20 03:47 102 H 94/49 08/30/20 03:31 95 101/61 08/30/20 03:16 87 111/69 08/30/20 03:01 97 98/61 08/30/20 02:46 98 94/59 08/30/20 02:31 101 H 109/65 08/30/20 02:15 103 H 96/60 08/30/20 02:01 114 H 119/69 08/30/20 01:46 97.7 F 113 H 32 H 133/58 08/30/20 01:10 98 18 146/62 08/30/20 00:55 96 16 115/56 08/30/20 00:40 98.1 F 95 18 102/51 08/29/20 22:49 101.3 F H 104 H 20 102/68 08/29/20 21:22 101.3 F H 96 18 116/60 08/29/20 20:10 98.4 F 94 18 126/70 08/29/20 18:53 16 08/29/20 18:23 99.7 F H 74 16 135/77 Pulse Ox 08/30/20 11:07 95 08/30/20 10:47 94 L 08/30/20 07:30 99 08/30/20 07:15 96 08/30/20 03:47 08/30/20 03:31 08/30/20 03:16 08/30/20 03:01 08/30/20 02:46 08/30/20 02:31 08/30/20 02:15 08/30/20 02:01 08/30/20 01:46 94 L 08/30/20 01:10 98 08/30/20 00:55 100 08/30/20 00:40 92 L 08/29/20 22:49 98 08/29/20 21:22 94 L 08/29/20 20:10 97 08/29/20 18:53 08/29/20 18:23 98 Intake and Output 08/29/20 08/30/20 08/30/20 22:59 06:59 14:59 Intake Total 2250 Balance 2250 Intake: IV 1100 Intake, IV Titration 900 Amount Sodium Chloride 0.9% 1, 400 000 ml @ 100 mls/hr IV . Q10H [facility], [facility] Rx#:[id number] Sodium Chloride 0.9% 500 500 ml 500 ml @ 999 mls/hr IV .Q31M ONE Rx#:[id number] Oral 250 Other: Voiding Method Indwelling Catheter Indwelling Catheter Weight 120.202 kg 120.202 kg PHYSICAL EXAMINATION: GENERAL: The patient is alert and oriented x3, not in any acute distress. Has generalized weakness, parkinsonian tremor HEENT: Pupils are round and equally reacting to light. EOMI. No scleral icterus. No conjunctival pallor. Normocephalic, atraumatic. No pharyngeal erythema. No thyromegaly. CARDIOVASCULAR: S1 and S2 present. No murmurs, rubs, or gallops. PULMONARY: Chest is clear to auscultation, no wheezing or crackles. ABDOMEN: Soft, nontender, nondistended, normoactive bowel sounds. No palpable o rganomegaly. MUSCULOSKELETAL: No joint swelling or deformity. EXTREMITIES: No cyanosis, clubbing, or pedal edema. NEUROLOGICAL: Gross neurological examination did not reveal any focal deficits. SKIN: No rashes. Results CBC & Chem 7: 08/30/20 10:02 08/30/20 10:02 Labs: Abnormal Lab Results - Last 24 Hours (Table) 08/29/20 08/29/20 08/29/20 Range/Units 19:48 19:48 19:48 WBC 21.1 H (3.8-10.6) k/uL RBC (3.80-5.40) m/uL Hgb (11.4-16.0) gm/dL Hct (34.0-46.0) % MCV 100.2 H (80.0-100.0) fL MCHC (31.0-37.0) g/dL RDW (11.5-15.5) % Plt Count 149 L (150-450) k/uL Neutrophils # (1.3-7.7) k/uL Neutrophils # (Manual) 20.40 H (1.3-7.7) k/uL Lymphocytes # (Manual) 0.21 L (1.0-4.8) k/uL Monocytes # (0-1.0) k/uL Monocytes # (Manual) (0-1.0) k/uL Sodium 136 L (137-145) mmol/L BUN (7-17) mg/dL Creatinine 1.11 H (0.52-1.04) mg/dL Glucose 118 H (74-99) mg/dL Plasma Lactic Acid Flo (0.7-2.0) mmol/L Calcium (8.4-10.2) mg/dL Magnesium 1.4 L (1.6-2.3) mg/dL Albumin (3.5-5.0) g/dL Urine Appearance Cloudy H (Clear) Urine Protein 1+ H (Negative) Urine Blood Moderate H (Negative) Ur Leukocyte Esterase Large H (Negative) Urine RBC 53 H (0-5) /hpf Urine WBC 171 H (0-5) /hpf Urine Bacteria Many H (None) /hpf Urine Mucus Rare H (None) /hpf 08/29/20 08/29/20 08/30/20 Range/Units 19:48 22:38 02:48 WBC 28.0 H (3.8-10.6) k/uL RBC 3.46 L (3.80-5.40) m/uL Hgb 10.6 L (11.4-16.0) gm/dL Hct (34.0-46.0) % MCV 103.3 H (80.0-100.0) fL MCHC 29.6 L (31.0-37.0) g/dL RDW (11.5-15.5) % Plt Count 148 L (150-450) k/uL Neutrophils # (1.3-7.7) k/uL Neutrophils # (Manual) 26.30 H (1.3-7.7) k/uL Lymphocytes # (Manual) 0.84 L (1.0-4.8) k/uL Monocytes # (0-1.0) k/uL Monocytes # (Manual) (0-1.0) k/uL Sodium (137-145) mmol/L BUN (7-17) mg/dL Creatinine (0.52-1.04) mg/dL Glucose (74-99) mg/dL Plasma Lactic Acid Flo 2.4 H* 2.7 H* (0.7-2.0) mmol/L Calcium (8.4-10.2) mg/dL Magnesium (1.6-2.3) mg/dL Albumin (3.5-5.0) g/dL Urine Appearance (Clear) Urine Protein (Negative) Urine Blood (Negative) Ur Leukocyte Esterase (Negative) Urine RBC (0-5) /hpf Urine WBC (0-5) /hpf Urine Bacteria (None) /hpf Urine Mucus (None) /hpf 08/30/20 08/30/20 08/30/20 Range/Units 02:48 02:48 05:13 WBC (3.8-10.6) k/uL RBC (3.80-5.40) m/uL Hgb (11.4-16.0) gm/dL Hct (34.0-46.0) % MCV (80.0-100.0) fL MCHC (31.0-37.0) g/dL RDW (11.5-15.5) % Plt Count (150-450) k/uL Neutrophils # (1.3-7.7) k/uL Neutrophils # (Manual) (1.3-7.7) k/uL Lymphocytes # (Manual) (1.0-4.8) k/uL Monocytes # (0-1.0) k/uL Monocytes # (Manual) (0-1.0) k/uL Sodium 135 L (137-145) mmol/L BUN 18 H (7-17) mg/dL Creatinine 1.22 H (0.52-1.04) mg/dL Glucose 110 H (74-99) mg/dL Plasma Lactic Acid Flo 4.8 H* 4.3 H* (0.7-2.0) mmol/L Calcium (8.4-10.2) mg/dL Magnesium (1.6-2.3) mg/dL Albumin 3.0 L (3.5-5.0) g/dL Urine Appearance (Clear) Urine Protein (Negative) Urine Blood (Negative) Ur Leukocyte Esterase (Negative) Urine RBC (0-5) /hpf Urine WBC (0-5) /hpf Urine Bacteria (None) /hpf Urine Mucus (None) /hpf 08/30/20 08/30/20 08/30/20 Range/Units 10:02 10:02 10:02 WBC 23.6 H (3.8-10.6) k/uL RBC 2.96 L (3.80-5.40) m/uL Hgb 9.2 L (11.4-16.0) gm/dL Hct 30.5 L (34.0-46.0) % MCV 103.2 H (80.0-100.0) fL MCHC 30.3 L (31.0-37.0) g/dL RDW 15.6 H (11.5-15.5) % Plt Count (150-450) k/uL Neutrophils # 20.8 H (1.3-7.7) k/uL Neutrophils # (Manual) 21.20 H (1.3-7.7) k/uL Lymphocytes # (Manual) 0.94 L (1.0-4.8) k/uL Monocytes # 1.1 H (0-1.0) k/uL Monocytes # (Manual) 1.65 H (0-1.0) k/uL Sodium 135 L (137-145) mmol/L BUN 22 H (7-17) mg/dL Creatinine 1.38 H (0.52-1.04) mg/dL Glucose 105 H (74-99) mg/dL Plasma Lactic Acid Flo 3.2 H* (0.7-2.0) mmol/L Calcium 8.1 L (8.4-10.2) mg/dL Magnesium (1.6-2.3) mg/dL Albumin (3.5-5.0) g/dL Urine Appearance (Clear) Urine Protein (Negative) Urine Blood (Negative) Ur Leukocyte Esterase (Negative) Urine RBC (0-5) /hpf Urine WBC (0-5) /hpf Urine Bacteria (None) /hpf Urine Mucus (None) /hpf Microbiology - Last 24 Hours (Table) 08/29/20 19:48 Urine Culture - Preliminary Urine,Voided Thrombosis Risk Factor Assmnt - Choose All That Apply Any of the Below Risk Factors Present?: Yes Each Factor Represents 1 point: Medical pt on bed rest, Obesity (BMI >25), Sepsis (< 1month) Other Risk Factors: Yes Each Risk Factor Represents 3 Points: Age 75 years or older Thrombosis Risk Factor Assessment Total Risk Factor Score: 6 Thrombosis Risk Factor Assessment Level: High Risk Assessment and Plan Plan: Sepsis secondary to urinary tract infection, acute pyelonephritis: Patient has bilateral ureteral calculi patient has had a ureteral stent placement patient will be started on meropenem -Bilateral hydronephrosis, pyelonephritis -Stage II sacral decubitus ulcer wound care will be consulted barrier cream, infectious disease with a valid the patient has a -History of Parkinson's: Patient was resumed on her home medications -CVAT at the past -Gastroesophageal reflux disease Hypertension seizure disorder -Hypothyroidism -DVT prophylaxis with Lovenox for above-mentioned chronic medical problems patient will be resumed on appropriate home medications
--- NOTE | 2020-08-30 13:11 | P.CONS ---
History of Present Illness - Reason for Consult Consult date: 08/30/20 Wound care - History of Present Illness This is an 85-year-old patient being seen on [address] for a nonhealing ulceration to the coccyx. Patient states that the ulceration has been there for multiple months she's been utilizing of cream at home. Patient states that the ulceration has improved significantly. However she had noticed some bleeding from the site just recently. Patient does have tenderness and pain to the site. Ulceration shows a nonhealing pressure ulceration with fatty layer exposure to the coccyx. Maceration and ecchymosis noted to the periwound. Granulation seen throughout the wound bed. Wound edges are attached to the wound base. No undermining or tunneling noted. Patient past medical history significant for CVA, GERD, hypertension, hypothyroidism. Review Of Systems: Constitutional: No fever, no chills, no night sweats. No weight change. No weakness, fatigue or lethargy. No daytime sleepiness. Integumentary:reports wounds, no lesions. No rash or pruritus. No unusual bruising. No change in hair or nails. My wound care physical exam Assessment/plan: 1. Stage II pressure ulcer coccyx. Apply zinc barrier cream daily, turn patient every 2 hours. Utilize a waffle cushion when sitting. May utilize a mattress overlay as needed. Thank you for the consultation any questions please contact the wound care center DNP note has been reviewed and discussed with Dr. Sexton and the impression and plan of care has been directed as dictated. Past Medical History Past Medical History: CVA/TIA, GERD/Reflux, Hypertension, Memory Impairment, Osteoarthritis (OA), Seizure Disorder, Thyroid Disorder Additional Past Medical History / Comment(s): restless leg syndrome, hemiplegia, hemiparesis, anemia, History of Any Multi-Drug Resistant Organisms: ESBL, MRSA Year Discovered:: 01/12/20 ESBL/ MRSA 2009 MDRO Source:: ESBL URINE MRSA STOOL Past Surgical History: Back Surgery, Cholecystectomy Additional Past Surgical History / Comment(s): ileostomy Past Anesthesia/Blood Transfusion Reactions: No Reported Reaction Past Psychological History: Anxiety Smoking Status: Never smoker Past Alcohol Use History: Unable to Obtain Past Drug Use History: Unable to Obtain - Past Family History Father Family Medical History: Cancer Additional Family Medical History / Comment(s): lung CA Mother Family Medical History: Cancer Sister(s) Additional Family Medical History / Comment(s): emphysema Medications and Allergies Home Medications Medication Instructions Recorded Confirmed Type Acetaminophen Tab [Tylenol] 650 mg PO TID@0500,1300,2100 09/18/18 08/29/20 History Aspirin 81 mg PO HS@199909/18/18 08/29/20 History Levothyroxine Sodium [Synthroid] 50 mcg PO DAILY@0500 09/18/18 08/29/20 History Melatonin 3 mg PO HS@199909/18/18 08/29/20 History Sertraline [Zoloft] 100 mg PO DAILY 09/18/18 08/29/20 History Lactulose 30 gm PO BID 06/08/19 08/29/20 History Primidone [Mysoline] 25 mg PO HS@199906/08/19 08/29/20 History Allopurinol [Zyloprim] 300 mg PO DAILY 01/12/20 08/29/20 History Carbidopa-Levodopa 25-100 mg 1 tab PO AC-BID@0700,1300 01/12/20 08/29/20 History [Sinemet 25-100 mg] Mag Hydrox/Aluminum Hyd/Simeth 30 ml PO Q6H PRN 01/12/20 08/29/20 History [Mylanta Maximum Strength Liq] Metoprolol Tartrate [Lopressor] 12.5 mg PO BID@0700,1900 01/12/20 08/29/20 History rOPINIRole HCL [Requip] 0.5 mg PO TID@0700,1300,1900 01/12/20 08/29/20 History Baclofen [Lioresal] 10 mg PO DAILY tab 01/16/20 08/29/20 Rx Benzocaine [Anbesol] 1 applic MUCOUS MEM TID PRN 08/29/20 08/29/20 History Benzocaine/Menthol [Cepacol Sore 1 lozenge MM Q4H PRN 08/29/20 08/29/20 History Throat Lozenge] HYDROcodone/APAP 5-325MG [[place] 1 tab PO Q8H PRN 08/29/20 08/29/20 History 5-325] Pantoprazole Sodium [Protonix] 40 mg PO DAILY 08/29/20 08/29/20 History Simethicone Chew [Mylicon Chew] 80 mg PO AC-TID@07,12,17 08/29/20 08/29/20 History amLODIPine [Norvasc] 10 mg PO DAILY@0500 08/29/20 08/29/20 History levETIRAcetam [Keppra] 500 mg PO BID@0700,1900 08/29/20 08/29/20 History traMADol HCL 50 mg PO Q6H 08/29/20 08/29/20 History Allergies Allergy/AdvReac Type Severity Reaction Status Date / Time amoxicillin [From Augmentin] Allergy Unknown Verified 08/29/20 20:13 clavulanic acid Allergy Unknown Verified 08/29/20 20:13 [From Augmentin] codeine Allergy Unknown Verified 08/29/20 20:13 Physical Exam Vitals: Vital Signs Temp Pulse Pulse Pulse Resp BP BP 08/30/20 12:40 98.3 F 68 19 98/61 08/30/20 11:07 105 H 100/50 08/30/20 10:47 98.8 F 72 20 162/90 08/30/20 07:30 98.3 F 89 94 20 115/63 08/30/20 07:15 08/30/20 03:47 102 H 94/49 08/30/20 03:31 95 101/61 08/30/20 03:16 87 111/69 08/30/20 03:01 97 98/61 08/30/20 02:46 98 94/59 08/30/20 02:31 101 H 109/65 08/30/20 02:15 103 H 96/60 08/30/20 02:01 114 H 119/69 08/30/20 01:46 97.7 F 113 H 32 H 133/58 08/30/20 01:10 98 18 146/62 08/30/20 00:55 96 16 115/56 08/30/20 00:40 98.1 F 95 18 102/51 08/29/20 22:49 101.3 F H 104 H 20 102/68 08/29/20 21:22 101.3 F H 96 18 116/60 08/29/20 20:10 98.4 F 94 18 126/70 08/29/20 18:53 16 08/29/20 18:23 99.7 F H 74 16 135/77 Pulse Ox 08/30/20 12:40 96 08/30/20 11:07 95 08/30/20 10:47 94 L 08/30/20 07:30 99 08/30/20 07:15 96 08/30/20 03:47 08/30/20 03:31 08/30/20 03:16 08/30/20 03:01 08/30/20 02:46 08/30/20 02:31 08/30/20 02:15 08/30/20 02:01 08/30/20 01:46 94 L 08/30/20 01:10 98 08/30/20 00:55 100 08/30/20 00:40 92 L 08/29/20 22:49 98 08/29/20 21:22 94 L 08/29/20 20:10 97 08/29/20 18:53 08/29/20 18:23 98 Intake and Output 08/29/20 08/30/20 08/30/20 22:59 06:59 14:59 Intake Total 2250 Balance 2250 Intake: IV 1100 Intake, IV Titration 900 Amount Sodium Chloride 0.9% 1, 400 000 ml @ 100 mls/hr IV . Q10H JACINTO Rx#:[id number] Sodium Chloride 0.9% 500 500 ml 500 ml @ 999 mls/hr IV .Q31M ONE Rx#:[id number] Oral 250 Other: Voiding Method Indwelling Catheter Indwelling Catheter Weight 120.202 kg 120.202 kg Results CBC & Chem 7: 08/30/20 10:02 08/30/20 10:02 Labs: Abnormal Lab Results - Last 24 Hours (Table) 08/29/20 08/29/20 08/29/20 Range/Units 19:48 19:48 19:48 WBC 21.1 H (3.8-10.6) k/uL RBC (3.80-5.40) m/uL Hgb (11.4-16.0) gm/dL Hct (34.0-46.0) % MCV 100.2 H (80.0-100.0) fL MCHC (31.0-37.0) g/dL RDW (11.5-15.5) % Plt Count 149 L (150-450) k/uL Neutrophils # (1.3-7.7) k/uL Neutrophils # (Manual) 20.40 H (1.3-7.7) k/uL Lymphocytes # (Manual) 0.21 L (1.0-4.8) k/uL Monocytes # (0-1.0) k/uL Monocytes # (Manual) (0-1.0) k/uL Sodium 136 L (137-145) mmol/L BUN (7-17) mg/dL Creatinine 1.11 H (0.52-1.04) mg/dL Glucose 118 H (74-99) mg/dL Plasma Lactic Acid Flo (0.7-2.0) mmol/L Calcium (8.4-10.2) mg/dL Magnesium 1.4 L (1.6-2.3) mg/dL Albumin (3.5-5.0) g/dL Urine Appearance Cloudy H (Clear) Urine Protein 1+ H (Negative) Urine Blood Moderate H (Negative) Ur Leukocyte Esterase Large H (Negative) Urine RBC 53 H (0-5) /hpf Urine WBC 171 H (0-5) /hpf Urine Bacteria Many H (None) /hpf Urine Mucus Rare H (None) /hpf 08/29/20 08/29/20 08/30/20 Range/Units 19:48 22:38 02:48 WBC 28.0 H (3.8-10.6) k/uL RBC 3.46 L (3.80-5.40) m/uL Hgb 10.6 L (11.4-16.0) gm/dL Hct (34.0-46.0) % MCV 103.3 H (80.0-100.0) fL MCHC 29.6 L (31.0-37.0) g/dL RDW (11.5-15.5) % Plt Count 148 L (150-450) k/uL Neutrophils # (1.3-7.7) k/uL Neutrophils # (Manual) 26.30 H (1.3-7.7) k/uL Lymphocytes # (Manual) 0.84 L (1.0-4.8) k/uL Monocytes # (0-1.0) k/uL Monocytes # (Manual) (0-1.0) k/uL Sodium (137-145) mmol/L BUN (7-17) mg/dL Creatinine (0.52-1.04) mg/dL Glucose (74-99) mg/dL Plasma Lactic Acid Flo 2.4 H* 2.7 H* (0.7-2.0) mmol/L Calcium (8.4-10.2) mg/dL Magnesium (1.6-2.3) mg/dL Albumin (3.5-5.0) g/dL Urine Appearance (Clear) Urine Protein (Negative) Urine Blood (Negative) Ur Leukocyte Esterase (Negative) Urine RBC (0-5) /hpf Urine WBC (0-5) /hpf Urine Bacteria (None) /hpf Urine Mucus (None) /hpf 08/30/20 08/30/20 08/30/20 Range/Units 02:48 02:48 05:13 WBC (3.8-10.6) k/uL RBC (3.80-5.40) m/uL Hgb (11.4-16.0) gm/dL Hct (34.0-46.0) % MCV (80.0-100.0) fL MCHC (31.0-37.0) g/dL RDW (11.5-15.5) % Plt Count (150-450) k/uL Neutrophils # (1.3-7.7) k/uL Neutrophils # (Manual) (1.3-7.7) k/uL Lymphocytes # (Manual) (1.0-4.8) k/uL Monocytes # (0-1.0) k/uL Monocytes # (Manual) (0-1.0) k/uL Sodium 135 L (137-145) mmol/L BUN 18 H (7-17) mg/dL Creatinine 1.22 H (0.52-1.04) mg/dL Glucose 110 H (74-99) mg/dL Plasma Lactic Acid Flo 4.8 H* 4.3 H* (0.7-2.0) mmol/L Calcium (8.4-10.2) mg/dL Magnesium (1.6-2.3) mg/dL Albumin 3.0 L (3.5-5.0) g/dL Urine Appearance (Clear) Urine Protein (Negative) Urine Blood (Negative) Ur Leukocyte Esterase (Negative) Urine RBC (0-5) /hpf Urine WBC (0-5) /hpf Urine Bacteria (None) /hpf Urine Mucus (None) /hpf 08/30/20 08/30/20 08/30/20 Range/Units 10:02 10:02 10:02 WBC 23.6 H (3.8-10.6) k/uL RBC 2.96 L (3.80-5.40) m/uL Hgb 9.2 L (11.4-16.0) gm/dL Hct 30.5 L (34.0-46.0) % MCV 103.2 H (80.0-100.0) fL MCHC 30.3 L (31.0-37.0) g/dL RDW 15.6 H (11.5-15.5) % Plt Count (150-450) k/uL Neutrophils # 20.8 H (1.3-7.7) k/uL Neutrophils # (Manual) 21.20 H (1.3-7.7) k/uL Lymphocytes # (Manual) 0.94 L (1.0-4.8) k/uL Monocytes # 1.1 H (0-1.0) k/uL Monocytes # (Manual) 1.65 H (0-1.0) k/uL Sodium 135 L (137-145) mmol/L BUN 22 H (7-17) mg/dL Creatinine 1.38 H (0.52-1.04) mg/dL Glucose 105 H (74-99) mg/dL Plasma Lactic Acid Flo 3.2 H* (0.7-2.0) mmol/L Calcium 8.1 L (8.4-10.2) mg/dL Magnesium (1.6-2.3) mg/dL Albumin (3.5-5.0) g/dL Urine Appearance (Clear) Urine Protein (Negative) Urine Blood (Negative) Ur Leukocyte Esterase (Negative) Urine RBC (0-5) /hpf Urine WBC (0-5) /hpf Urine Bacteria (None) /hpf Urine Mucus (None) /hpf Microbiology - Last 24 Hours (Table) 08/29/20 19:48 Urine Culture - Preliminary Urine,Voided Assessment and Plan (1) Pressure ulcer of sacral region, stage 2 Current Visit: Yes Status: Acute Code(s): L89.152 - PRESSURE ULCER OF SACRAL REGION, STAGE 2 SNOMED Code(s): 252417754
[2020-08-30] MEDS: ACETAMINOPHEN TAB 325 MG TAB PO SCH ×2 (13:28→21:16)
--- NOTE | 2020-08-30 14:39 | CDI ---
Documentation Clarification Form Date: 08/30/2020 02:25:02 PM From: Kaitlin Manuel CCS, CCDS Admit Date: 08/29/2020 10:48:00 PM Patient Name: Sumaya Yanez Visit Number: [id number] Discharge Date: ATTENTION: The Clinical Documentation Specialists (CDI) and [facility] Coding Staff appreciate your assistance in clarifying documentation. Please respond to the clarification below the line at the bottom and electronically sign. The CDI & [facility] Coding staff will review the response and follow-up if needed. Please note: Queries are made part of the Legal Health Record. If you have any questions, please contact the author of this message via ITS. Dr. Heron Zavala: The patient's Hemoglobin was 12.2 with Hematocrit 39.0 on the day of admission 08/29. On 08/30 the patient's Hemoglobin is 9.2, Hematocrit 30.5. The patient also has a documented history of anemia without further specificity in the Past Medical History in the 08/29 ED Note, the 08/30 History & Physical, the 08/29 Urology Consult and the 08/30 Wound Care Consult. Please clarify the type & specificity of the patient's anemia if known. History/Risk Factors Per the Past Medical History: CVA, Hemiparesis, GERD, Hypertension, Osteoarthritis, Seizure Disorder, Hypothyroid, Restless Leg Syndrome, ESBL & MRSA in Urine & Stool and Anemia. Clinical indicators: Presented to the ED on 08/29 via EMS with weakness, lethargy and SOB. Reportedly being treated for UTI per the ED note. ED Clinical Impression: Sepsis, UTI, Bilateral Ureteral Calculi. 08/29 VS: T 99.7, P 74, R 16, BP 135/77, PO 98 2Lnc, BMI: 46.9 LABS: Hgb, Hct per above. 08/29 WBC: 21.1, Pl Ct 149, neut 20.40, Lymph 0.21, Na 136, Cr 1.11, Glucose 118, Lactic Acid 2.4, 2.7; Mag 1.4. 08/29 UA: cloudy, 1+ protein, moderate blood, large esterase, RBC 53, WBC 171. Procedure 08/30: Cystoscopy, Bilateral ureteral stent insertion. Treatment 4/11: IV Morphine, IV fluid 500 mls @ 999 mls/hr q31M, IV Levaquin, IV Zofran, IV fluid 1,000 mls @ 100 mls/hr q10H, IV Lactated Ringers as directed. Please further specify the type, acuity & cause of the patients anemia if known: [ ] Acute blood loss anemia, please specify cause if know: [ ] Acute blood loss anemia, a complication of the patient's procedure [ ] Acute blood loss anemia, not a complication of the patient's procedure [ ] Acute on chronic blood loss anemia [ ] Chronic blood loss anemia [ ] Anemia in chronic disease(s), please specify: [ ] Hemolytic anemia [ ] Drug induced anemia [ ] Nutritional anemia [X] Unable to determine [ ] Other, please specify (Template Last Revised: June 2020) MTDD
[2020-08-30] MEDS ORDERED: CARBIDOPA-LEVODOPA 25-100 MG 1 EACH TAB PO STA (16:13)
[2020-08-30] MEDS: levETIRAcetam 500 MG TAB PO SCH (20:09)
[2020-08-30] MEDS: METOPROLOL TARTRATE 12.5 MG TAB PO SCH (20:09)
[2020-08-30] MEDS: HEPARIN SODIUM,PORCINE/PF 5,000 UNIT/0.5 ML SYRINGE SQ SCH (21:16)
[2020-08-30] MEDS: ASPIRIN 81 MG PO SCH (21:16)
[2020-08-30] MEDS: PRIMIDONE 25 MG TAB PO SCH (21:16)
[2020-08-30] MEDS: LACTULOSE 20 GM/30 ML CUP PO SCH (21:18)
[2020-08-30] MEDS ORDERED: SODIUM CHLORIDE 0.9% 2,000 ML IV ONE (22:09)
--- NOTE | 2020-08-30 22:26 | P.EN ---
A team note Activated at 10:04 PM, arrived on the scene shortly after. Discussed the case in detail with the RN and reviewed the chart. The patient was admitted with urosepsis and underwent stent placement and lithotripsy earlier. Cultures had grown gram-negative bacilli with speciation not yet performed. The patient was noted to be short of breath by the RN with SpO2 low of 78% on 3 L nasal cannula. The RN also obtained a BP reading of 92/58 at which time she activated the A team. The patient reported having chronic lower back and buttock pain. She also reported some shortness of breath. Upon examination, the patient is an elderly female in mild respiratory distress on 100% nonrebreather mask. On lung examination she was noted to have bilateral rales and some scattered rhonchi. Abdomen was soft and nontender with no guarding. The patient was oriented to person and place. The RN noted the patient was receiving 100 mL/h of fluid over the past 2 days. Repeat blood pressure at the bedside was 158/82, temp 98.6, pulse 90, and SpO2 of 96% on 100% nonrebreather mask. Assessment/plan Shortness of breath, hypoxia -Suspicious for possible fluid overload -Obtain chest x-ray -Decrease IV fluids to 50 mL an hour -Plan to order lasix if pulmonary edema noted -Primary team notified -The patient is currently on meropenem for urosepsis with ESBL
--- NOTE | 2020-08-30 22:40 | XR ---
EXAMINATION TYPE: XR chest 1V portable DATE OF EXAM: 08/30/2020 COMPARISON: 08/30/2020 6:30 AM HISTORY: Fluid overload. Hypoxemia. TECHNIQUE: FINDINGS: Heart is enlarged. There is some pulmonary vascular congestion. There is blunting of the co stophrenic angles bilaterally. Thoracic aorta is atheromatous. There are chest leads. IMPRESSION: There is probably congestive heart failure. Bilateral pleural effusions increased compare d to exam this morning..
--- NOTE | 2020-08-30 22:59 | CONS ---
CONSULTATION DATE OF SERVICE: 08/30/2020 REASON FOR CONSULTATION: 1. Complicated urinary tract infection. 2. Bacteremia. HISTORY OF PRESENT ILLNESS: The patient is an 85-year-old female, a prison resident. The patient was sent to the ER at [facility] yesterday for evaluation of weakness, lethargy, generalized feeling weak and right flank pain. The patient said it had been going on for a few days before presenting to the hospital. The patient describes her pain to be more sharp in nature, almost 6 to 7 out of 10. No radiation. There is associated nausea but no vomiting. Denies having any diarrhea. The patient apparently was getting treatment for UTI at the prison. With these symptoms, the patient was evaluated by the ER physician. On arrival in the ER, the patient did have a low- grade fever of 99.7 and a subsequent fever of 101.3 degrees Fahrenheit. The patient did have tachycardia. Her white count was elevated at 21.1. Repeat was 23.6. The patient did have mildly elevated creatinine. Urine was positive. The patient did have a CT of abdomen and pelvis with evidence of bilateral hydronephrosis. Patient was taken to the OR and is status post cystoscopy last night and placement of bilateral ureteral stents. The patient was initially treated with Levaquin. Subsequently the antibiotic has been switched over to meropenem. Previous history of ESBL infection. Infectious Disease was consulted for further management of antibiotic therapy. REVIEW OF SYSTEMS: Positive points have been mentioned in the HPI. Rest of the systems are negative. PAST MEDICAL HISTORY: Recurrent urinary tract infections, CVA, TIA, gastroesophageal reflux disease, hypertension, memory impairment, osteoarthritis, seizure disorder, hypothyroidism, restless leg syndrome, hemiplegia, hemiparesis and ESBL E coli urinary tract infection. PAST SURGICAL HISTORY: Back surgery and cholecystectomy and ileostomy. SOCIAL HISTORY: No history of smoking, drinking or drug use. Currently a prison resident. FAMILY HISTORY: Father with history of lung cancer. ALLERGIES: AMOXICILLIN AND CODEINE. MEDICATIONS: The patient is currently on Tylenol, [place], Maalox, Zyloprim, aspirin, baclofen, Orajel, Cepacol lozenges, Sinemet, heparin, lactulose, Keppra, Synthroid, melatonin, meropenem 500 q.12, Lopressor, Narcan, Zofran, Protonix, Mysoline, Requip, Zoloft, Ultram. PHYSICAL EXAMINATION: Blood pressure 137/70 with a pulse of 81, temperature 98, T-max of 101. She is 93% on 3 L nasal cannula. General description is an elderly female lying in bed in no distress. No tachypnea or accessory muscles of respiration use. HEENT: Examination shows pallor. No scleral icterus. Oral mucous membrane is dry. NECK: Trachea is central. No thyromegaly. LUNGS: Unlabored breathing. Decreased breath sounds at the bases. No wheeze or crackle. HEART: S1, S2. Regular rate and rhythm. ABDOMEN: Soft, mildly tender, left-sided. No guarding. No rigidity. No organomegaly. EXTREMITIES: No edema of the feet. SKIN EXAMINATION: No rash or mass palpable. The patient apparently did have a pressure ulcer to the sacral area; however, RN was not available to help turn the patient, so the wound could not be examined. Wound Care has been consulted, and they will be evaluating the wound. Neurologically the patient is awake, alert, oriented x3. Mood and affect normal. LABS: Hemoglobin 9.2 with white count 23.6, BUN of 22, creatinine 1.38. Lactic acid 4.3. Repeat is 1.5. Urine is positive. Blood culture with Gram-negative bacilli. DIAGNOSTIC IMPRESSION AND PLAN: 1. Patient presented to hospital with sepsis in this patient who did have a fever, tachycardia, elevated white count and elevated lactic acid secondary to complicated urinary tract infection in this patient who did have evidence of bilateral hydronephrosis secondary to the bilateral ureteral stones, status post cystoscopy and bilateral ureteral stent placement with a previous history of ESBL pathogen. Will need to cover for the resistant Gram-negative while waiting for the culture to finalize. 2. Patient with renal insufficiency, high risk of nephrotoxicity. 3. PENICILLIN ALLERGY. That will limit the number of antibiotics safe to use. PLAN: 1. Blood cultures will be repeated to document clearance of bacteremia. 2. Adjust dose of meropenem 1 gram q.12 hours. 3. Will follow her clinical condition and culture to further adjust medication. Thank you for this consultation. Will follow this patient along with you. MMODL / IJN: [id number] /
[2020-08-30] MEDS ORDERED: FUROSEMIDE 10 MG/ML 4 ML VIAL IV ONE (23:16)
[2020-08-31] MEDS: MEROPENEM 1,000 MG in SODIUM CHLORIDE 0.9% 100 ML IVPB SCH ×2 (00:09→13:29)
[2020-08-31] MEDS: ACETAMINOPHEN TAB 325 MG TAB PO SCH ×3 (05:39→19:59)
[2020-08-31] MEDS: LEVOTHYROXINE 50 MCG TAB PO SCH (05:39)
[2020-08-31] MEDS: traMADol 50 MG TAB PO SCH ×4 (05:39→23:16)
[2020-08-31] MEDS: CARBIDOPA-LEVODOPA 25-100 MG 1 EACH TAB PO SCH ×2 (09:29→13:06)
[2020-08-31] MEDS: HEPARIN SODIUM,PORCINE/PF 5,000 UNIT/0.5 ML SYRINGE SQ SCH ×2 (09:29→20:02)
[2020-08-31] MEDS: SIMETHICONE 80 MG CHEWABLE PO SCH ×3 (09:29→17:57)
[2020-08-31] MEDS: allopurinoL 300 MG TAB PO SCH (09:29)
[2020-08-31] MEDS: SERTRALINE 100 MG TAB PO SCH (09:29)
[2020-08-31] MEDS: levETIRAcetam 500 MG TAB PO SCH ×2 (09:29→19:59)
[2020-08-31] MEDS: PANTOPRAZOLE 40 MG TABLET PO SCH (09:29)
[2020-08-31] MEDS: LACTULOSE 20 GM/30 ML CUP PO SCH ×2 (09:30→20:02)
[2020-08-31 10:16] LABS: African American GFR (CKD) 28 (>60 ml/min/1.73 sqM); Anion Gap 7 mmol/L; Basophils % (A) 0 %; Blood Urea Nitrogen 32 mg/dL (7-17); Calcium 8.8 mg/dL (8.4-10.2); Carbon Dioxide 24 mmol/L (22-30); Chloride 100 mmol/L (98-107); Eosinophils # (A) 0.2 k/uL (0-0.7); Eosinophils % (A) 1 %; Glucose 83 mg/dL (74-99); HCT 30.2 % (34.0-46.0); HGB 8.9 gm/dL (11.4-16.0); Hypochromasia Marked; Lymphocytes # (A) 1.5 k/uL (1.0-4.8); Lymphocytes % (A) 7 %; MCH 30.9 pg (25.0-35.0); MCHC 29.6 g/dL (31.0-37.0); MCV 104.3 fL (80.0-100.0); Macrocytosis Moderate; Mean Platelet Volume 11.8; Monocytes # (A) 1.2 k/uL (0-1.0); Monocytes % (A) 6 %; Neutrophils # (A) 18.3 k/uL (1.3-7.7); Neutrophils % (A) 85 %; Non-African American GFR(CKD) 24 (>60 ml/min/1.73 sqM); Platelet Count 144 k/uL (150-450); Potassium 4.7 mmol/L (3.5-5.1); RBC 2.89 m/uL (3.80-5.40); RDW 15.4 % (11.5-15.5); Sodium 131 mmol/L (137-145); WBC 21.5 k/uL (3.8-10.6)
[2020-08-31] MEDS: SODIUM CHLORIDE 0.9% 1,000 ML IV SCH (11:54)
[2020-08-31] MEDS: METOPROLOL TARTRATE 12.5 MG TAB PO SCH ×2 (13:05→20:47)
--- NOTE | 2020-08-31 15:17 | P.PN ---
Subjective Progress Note Date: 08/31/20 85-year-old female was transferred here from [facility] after she started complaining of pain in the right flank area moderate severity sharp and crampy in nature found to have bilateral obstructing ureteral stones from the CT urine analysis significantly abnormal consistent with infection and purulent drainage patient presently has a Arroyo catheter, patient underwent cystoscopy and ureteral stent placement. Patient was febrile with elevated white blood cell count chest x-ray mostly is consistent with pulmonary edema on the BNP is only minimally elevated and patient has lactic acidosis because of which I'm continuing antibiotics patient had lactic as well as on 3.2. Covid 19 was negative patient had ESBL Proteus in the urine in the past because of which patient's levofloxacin is being switched to meropenem and infectious disease will evaluated the patient patient also has a stage II sacral decubitus ulcer for which wound care is being consulted 08/31/2020 Patient is seen and evaluated this morning continues to be lethargic although arousable and continues to be confused when aroused. An Ateam is called on the patient yesterday evening or increasing shortness of breath and patient was placed on nonrebreather and chest x-ray showed probable CHF was given 80 mg of Lasix IV push. Patient is continued on 4 L via nasal cannula. Infectious disease and urology following patient's IV antibiotic have been switched to ceftriaxone while awaiting for cultures to finalized. Blood culture preliminary showing Proteus species and urine culture preliminary was showing gram-negative bacilli with repeat cultures obtained and currently pending. IV fluids have been discontinued and patient is currently on 4 L and denies any shortness of breath. Patient is lethargic although arousable on exam. Review of systems: Unable to obtain as patient is lethargic this morning Objective - Vital Signs Vital signs: Vital Signs Temp 98 F 08/31/20 11:32 Pulse 91 08/31/20 11:32 Resp 20 08/31/20 11:32 BP 138/72 08/31/20 11:32 Pulse Ox 98 08/31/20 11:32 Intake & Output 08/30/20 08/31/20 08/31/20 18:59 06:59 18:59 Intake Total 1600 Output Total 800 Balance 800 Intake: Intake, IV Titration 1100 Amount Levofloxacin 500Mg-D5w 100 Pmx 500 mg In Dextrose/ Water 1 100ml.bag @ 100 mls/hr IVPB Q24H [facility] Rx#: [id number] Sodium Chloride 0.9% 500 1000 ml 500 ml @ 999 mls/hr IV .Q31M ONE Rx#:[id number] Oral 500 Output: Urine 400 Urine/Stool Mix 400 Other: Voiding Method Indwelling Catheter Indwelling Catheter Indwelling Catheter - Exam GENERAL: The patient is alert and oriented x2, not in any acute distress. Lethargic. Has generalized weakness, parkinsonian tremor HEENT: Pupils are round and equally reacting to light. EOMI. No scleral icterus. No conjunctival pallor. Normocephalic, atraumatic. No pharyngeal erythema. No thyromegaly. CARDIOVASCULAR: S1 and S2 present. No murmurs, rubs, or gallops. PULMONARY: Diminished breath sounds bilaterally with some scattered crackles noted. ABDOMEN: Soft, nontender, nondistended, normoactive bowel sounds. No palpable organomegaly. MUSCULOSKELETAL: No joint swelling or deformity. EXTREMITIES: No cyanosis, clubbing, or pedal edema. NEUROLOGICAL: Gross neurological examination did not reveal any focal deficits. SKIN: No rashes. - Labs CBC & Chem 7: 08/31/20 05:50 08/31/20 05:50 Labs: Abnormal Lab Results - Last 24 Hours (Table) 08/31/20 08/31/20 Range/Units 05:50 05:50 WBC 21.5 H (3.8-10.6) k/uL RBC 2.89 L (3.80-5.40) m/uL Hgb 8.9 L (11.4-16.0) gm/dL Hct 30.2 L (34.0-46.0) % MCV 104.3 H (80.0-100.0) fL MCHC 29.6 L (31.0-37.0) g/dL Plt Count 144 L (150-450) k/uL Neutrophils # 18.3 H (1.3-7.7) k/uL Monocytes # 1.2 H (0-1.0) k/uL Sodium 131 L (137-145) mmol/L BUN 32 H (7-17) mg/dL Creatinine 1.86 H (0.52-1.04) mg/dL Microbiology - Last 24 Hours (Table) 08/29/20 22:20 Blood Culture Gram Stain - Preliminary Blood Blood Culture - Preliminary Proteus spec 08/30/20 00:29 Urine Culture - Preliminary Urine,Voided 08/29/20 22:20 Blood Culture - Final Blood 08/29/20 19:48 Urine Culture - Preliminary Urine,Voided Assessment and Plan Assessment: -Lactic acidosis: Secondary to severe sepsis -Acute renal failure secondary to sepsis probably acute tubular necrosis and prerenal azotemia patient will continued on IV fluids -Sepsis secondary to urinary tract infection, acute pyelonephritis: Patient has bilateral ureteral calculi patient has had a ureteral stent placement patient was started on meropenem and has transitioned to ceftriaxone. Infectious disease is following preliminary culture showing ismael-negative bacilli and blood culture showing Proteus species and repeat blood cultures have been obtained and pending at this time. Repeat urine culture pending as well for finalization. -Bilateral hydronephrosis, pyelonephritis -Stage II sacral decubitus ulcer wound care and infectious disease following -History of Parkinson's: Patient was resumed on her home medications -CVA in the past -Gastroesophageal reflux disease -Hypertension -seizure disorder -Hypothyroidism -DVT prophylaxis with Lovenox Plan: For above-mentioned chronic medical problems patient will be resumed on appropriate home medications. IV antibiotics transitioned to ceftriaxone while awaiting for finalization. Repeat blood cultures and urine cultures pending. Infectious disease along with urology following and have consulted nephrology as patient's creatinine is trending up at 1.86. Patient currently maintained on 4 L of oxygen and will continue at this time. an A team was called on the patient last night for increased shortness of breath and was placed on nonrebreather. Chest x-ray showed probably congestive heart failure with bilateral pleural effusions increased compared to previous exam and was given a dose of Lasix. Prognosis is guarded. Will repeat a.m. labs and continue to monitor closely. Social work is following us patient is in ECF return once stabilized and discharged.
[2020-08-31] MEDS: HYDROcodone/APAP 5-325MG 1 EACH TAB PO PRN (16:21)
--- NOTE | 2020-08-31 19:35 | P.PN ---
Progress Note - Text Progress Note Date: 08/31/20 S/P bilateral ureteral stent placement by Dr Zavala for septic stones on 08/29. Patient is still confused, Having increasing shortness of breath and patient was placed on nonrebreather. Blood culture growing Proteus species. WBC down to 21.5 from 23.6. Having adequate urine output -Keep lizama in place -F/U on urine culture and blood culture, ID is onboard -Will eventually need bilateral ureteroscopy to address her ureteral stone once she completes her antibiotics, this will be arranged for her as an outpatient
[2020-08-31] MEDS: PRIMIDONE 25 MG TAB PO SCH (19:59)
[2020-08-31] MEDS: ASPIRIN 81 MG PO SCH (19:59)
--- NOTE | 2020-08-31 22:05 | PN ---
PROGRESS NOTE DATE OF SERVICE: 08/31/2020 REASON FOR FOLLOWUP: Gram-negative UTI and bacteremia. INTERVAL HISTORY: The patient is afebrile. The patient is slightly sleepy and lethargic today but denies having any chest pain or cough. No abdominal pain or diarrhea. PHYSICAL EXAMINATION: Blood pressure 105/56, pulse of 90, temperature 98.5. She is 96% on 4 L nasal cannula. General description is an elderly female lying in bed in no distress. RESPIRATORY SYSTEM: Unlabored breathing. Clear to auscultation anteriorly. HEART: S1, S2. Regular rate and rhythm. ABDOMEN: Soft. No tenderness. LABS: Hemoglobin is 8.9, white count 21.5, BUN of 32, creatinine 1.86. Blood culture with Proteus mirabilis. negative. DIAGNOSTIC IMPRESSION AND PLAN: Patient with Proteus mirabilis bacteremia secondary to complicated urinary tract infection in this patient who is status post cystoscopy and ureteral stent placement. Plan is to switch her antibiotic therapy to Rocephin 2 grams daily and monitor her clinical course closely. Continue with supportive care. MMODL / IJN: [id number] /
[2020-09-01] MEDS: LEVOTHYROXINE 50 MCG TAB PO SCH (04:48)
[2020-09-01] MEDS: traMADol 50 MG TAB PO SCH ×3 (04:48→19:45)
[2020-09-01] MEDS: ACETAMINOPHEN TAB 325 MG TAB PO SCH ×3 (04:49→19:44)
[2020-09-01] MEDS: METOPROLOL TARTRATE 12.5 MG TAB PO SCH ×2 (09:28→19:44)
[2020-09-01] MEDS: levETIRAcetam 500 MG TAB PO SCH ×2 (09:29→19:44)
[2020-09-01] MEDS: SIMETHICONE 80 MG CHEWABLE PO SCH ×3 (09:29→19:43)
[2020-09-01] MEDS: allopurinoL 100 MG TAB PO SCH (09:30)
[2020-09-01] MEDS: PANTOPRAZOLE 40 MG TABLET PO SCH (09:30)
[2020-09-01] MEDS: SERTRALINE 100 MG TAB PO SCH (09:30)
[2020-09-01] MEDS: LACTULOSE 20 GM/30 ML CUP PO SCH ×2 (09:30→19:44)
[2020-09-01] MEDS: HEPARIN SODIUM,PORCINE/PF 5,000 UNIT/0.5 ML SYRINGE SQ SCH ×2 (09:30→20:47)
[2020-09-01] MEDS: CARBIDOPA-LEVODOPA 25-100 MG 1 EACH TAB PO SCH ×2 (09:31→13:02)
[2020-09-01 09:37] LABS: Glucose,Whole Blood 92 mg/dL (75-99)
[2020-09-01 10:27] LABS: African American GFR (CKD) 30 (>60 ml/min/1.73 sqM); Anion Gap 9 mmol/L; Blood Urea Nitrogen 46 mg/dL (7-17); Calcium 9.1 mg/dL (8.4-10.2); Carbon Dioxide 23 mmol/L (22-30); Chloride 102 mmol/L (98-107); Glucose 87 mg/dL (74-99); Magnesium 1.7 mg/dL (1.6-2.3); Non-African American GFR(CKD) 26 (>60 ml/min/1.73 sqM); Potassium 5.2 mmol/L (3.5-5.1); Sodium 134 mmol/L (137-145)
[2020-09-01] MEDS: ERTAPENEM 0.5 GM in SODIUM CHLORIDE 0.9% 50 ML IVPB SCH (11:14)
[2020-09-01] MEDS ORDERED: FUROSEMIDE 10 MG/ML 4 ML VIAL IV STA (11:17)
--- NOTE | 2020-09-01 11:18 | P.NPCON ---
History of Present Illness - Reason for Consult acute renal failure - History of Present Illness Reason for consultation: Acute kidney injury History of present illness: A stent patient is a 85-year-old female seen in consultation for acute kidney injury. Creatinine was 1.11 on admission on 08/29/2020 and peaked at 1.86 yesterday. It is slightly better at 1.76 today. Patient was brought to the hospital by the EMS for generalized weakness and lethargy. She was also having right flank pain. Patient's urine culture as well as blood cultures are positive for Proteus mirabilis. She is maintained on IV antibiotics. CT of the abdomen and pelvis done this admission revealed moderate right-sided hydronephrosis. She underwent cystoscopy with bilateral ureteral stent insertion on August 30. Patient is nonoliguric. Urine output documented is 1100 mL in the last 24 hours. She also had 1500 mL output of urine and stool mix. She is off IV fluids. Chest x-ray yesterday was suggestive of fluid overload. She is currently on 2 L nasal cannula. Blood pressure stable. I don't see any nonsteroidals and her home medications. Vital signs are stable. General: The patient appeared well nourished and normally developed. HEENT: Head exam is unremarkable. Neck is without jugular venous distension. LUNGS: Breath sounds decreased. HEART: Rate and Rhythm are regular. ABDOMEN: Soft, no distention. EXTREMITITES: No edema. Past Medical History Past Medical History: CVA/TIA, GERD/Reflux, Hypertension, Memory Impairment, Osteoarthritis (OA), Seizure Disorder, Thyroid Disorder Additional Past Medical History / Comment(s): restless leg syndrome, hemiplegia, hemiparesis, anemia, History of Any Multi-Drug Resistant Organisms: ESBL, MRSA Date of last positivie culture/infection: 01/12/20 ESBL/ MRSA 2009 MDRO Source:: ESBL URINE MRSA STOOL Past Surgical History: Back Surgery, Cholecystectomy Additional Past Surgical History / Comment(s): ileostomy Past Anesthesia/Blood Transfusion Reactions: No Reported Reaction Past Psychological History: Anxiety Smoking Status: Never smoker Past Alcohol Use History: Unable to Obtain Past Drug Use History: Unable to Obtain - Past Family History Father Family Medical History: Cancer Additional Family Medical History / Comment(s): lung CA Mother Family Medical History: Cancer Sister(s) Additional Family Medical History / Comment(s): emphysema Medications and Allergies Home Medications Medication Instructions Recorded Confirmed Type Acetaminophen Tab [Tylenol] 650 mg PO TID@0500,1300,2100 09/18/18 08/29/20 History Aspirin 81 mg PO HS@199909/18/18 08/29/20 History Levothyroxine Sodium [Synthroid] 50 mcg PO DAILY@0500 09/18/18 08/29/20 History Melatonin 3 mg PO HS@199909/18/18 08/29/20 History Sertraline [Zoloft] 100 mg PO DAILY 09/18/18 08/29/20 History Lactulose 30 gm PO BID 06/08/19 08/29/20 History Primidone [Mysoline] 25 mg PO HS@199906/08/19 08/29/20 History Allopurinol [Zyloprim] 300 mg PO DAILY 01/12/20 08/29/20 History Carbidopa-Levodopa 25-100 mg 1 tab PO AC-BID@0700,1300 01/12/20 08/29/20 History [Sinemet 25-100 mg] Mag Hydrox/Aluminum Hyd/Simeth 30 ml PO Q6H PRN 01/12/20 08/29/20 History [Mylanta Maximum Strength Liq] Metoprolol Tartrate [Lopressor] 12.5 mg PO BID@0700,1900 01/12/20 08/29/20 History rOPINIRole HCL [Requip] 0.5 mg PO TID@0700,1300,1900 01/12/20 08/29/20 History Baclofen [Lioresal] 10 mg PO DAILY tab 01/16/20 08/29/20 Rx Benzocaine [Anbesol] 1 applic MUCOUS MEM TID PRN 08/29/20 08/29/20 History Benzocaine/Menthol [Cepacol Sore 1 lozenge MM Q4H PRN 08/29/20 08/29/20 History Throat Lozenge] HYDROcodone/APAP 5-325MG [[place] 1 tab PO Q8H PRN 08/29/20 08/29/20 History 5-325] Pantoprazole Sodium [Protonix] 40 mg PO DAILY 08/29/20 08/29/20 History Simethicone Chew [Mylicon Chew] 80 mg PO AC-TID@07,12,17 08/29/20 08/29/20 History amLODIPine [Norvasc] 10 mg PO DAILY@0500 08/29/20 08/29/20 History levETIRAcetam [Keppra] 500 mg PO BID@0700,1900 08/29/20 08/29/20 History traMADol HCL 50 mg PO Q6H 08/29/20 08/29/20 History Allergies Allergy/AdvReac Type Severity Reaction Status Date / Time amoxicillin [From Augmentin] Allergy Unknown Verified 08/29/20 20:13 clavulanic acid Allergy Unknown Verified 08/29/20 20:13 [From Augmentin] codeine Allergy Unknown Verified 08/29/20 20:13 Physical Exam Vitals: Vital Signs Temp Pulse Resp BP Pulse Ox 09/01/20 04:55 98.7 F 80 22 130/72 93 L 08/31/20 20:20 98.5 F 90 18 105/56 96 08/31/20 19:55 18 08/31/20 11:32 98 F 91 20 138/72 98 Intake and Output 08/31/20 09/01/20 09/01/20 22:59 06:59 14:59 Intake Total 600 Output Total 1800 800 Balance -1800 -200 Intake: Oral 600 Output: Urine 800 300 Uretheral (Arroyo) 300 Stool 1000 500 Other: Voiding Method Indwelling Catheter Results - Lab Results Most recent lab results Calcium 9.1 mg/dL (8.4-10.2) 09/01/20 08:55 Magnesium 1.7 mg/dL (1.6-2.3) 09/01/20 08:55 08/31/20 05:50 09/01/20 08:55 Assessment and Plan Plan: Assessment: 1. Acute kidney injury secondary to ATN from sepsis and obstructive uropathy. Creatinine peaked at 1.86 this admission and is 1.76 today. Creatinine in December 2019 was 0.8. 2. Hydronephrosis and nephrolithiasis status post bilateral ureteral stent placement on August 30. Urology following. 3. Severe sepsis secondary to Proteus UTI and bacteremia. On IV antibiotics. 4. Volume overload. Effusions noted on chest x-ray. Plan: Strict is and os. Lasix 40 mg IV once today. Check chest x-ray in the morning. Encourage oral intake. Avoid nephrotoxins. Continue to monitor renal function and urine output. Thank you for the consultation. I will continue to follow the patient with you during her hospital stay.
--- NOTE | 2020-09-01 11:41 | XR ---
EXAMINATION TYPE: XR chest 1V portable DATE OF EXAM: 09/01/2020 CLINICAL HISTORY: Shortness of breath and congestion. TECHNIQUE: Single AP portable upright view of the chest is obtained. COMPARISON: Chest x-ray from 2 days earlier and older studies FINDINGS: Suboptimal due to portable technique and patient's large body habitus. There is background chronic emphysematous change with persistent bilateral multifocal opacities. Stable cardiomegaly with atherosclerotic aorta. Stable increased soft tissue density right paratracheal region. Underlying sc oliotic curvature redemonstrated. Suspect small right pleural effusion on current study. IMPRESSION: Chronic emphysematous and pulmonary fibrotic changes with worsening bilateral multifocal opacities, suspect infection progression or worsening CHF exacerbation. Correlate clinically.
[2020-09-01 11:54] LABS: Glucose,Whole Blood 104 mg/dL (75-99)
--- NOTE | 2020-09-01 15:45 | P.PN ---
Subjective Progress Note Date: 09/01/20 85-year-old female [facility] after she started complaining of pain in the right flank area moderate severity sharp and crampy in nature found to have bilateral obstructing ureteral stones from the CT urine analysis significantly abnormal consistent with infection and purulent drainage patient presently has a Arroyo catheter, patient underwent cystoscopy and ureteral stent placement. Patient was febrile with elevated white blood cell count chest x-ray mostly is consistent with pulmonary edema on the BNP is only minimally elevated and patient has lactic acidosis because of which I'm continuing antibiotics patient had lactic as well as on 3.2. Covid 19 was negative patient had ESBL Proteus in the urine in the past because of which patient's levofloxacin is being switched to meropenem and infectious disease will evaluated the patient patient also has a stage II sacral decubitus ulcer for which wound care is being consulted 08/31/2020 Patient is seen and evaluated this morning continues to be lethargic although arousable and continues to be confused when aroused. An Ateam is called on the patient yesterday evening or increasing shortness of breath and patient was placed on nonrebreather and chest x-ray showed probable CHF was given 80 mg of Lasix IV push. Patient is continued on 4 L via nasal cannula. Infectious disease and urology following patient's IV antibiotic have been switched to ceftriaxone while awaiting for cultures to finalized. Blood culture preliminary showing Proteus species and urine culture preliminary was showing gram-negative bacilli with repeat cultures obtained and currently pending. IV fluids have been discontinued and patient is currently on 4 L and denies any shortness of breath. Patient is lethargic although arousable on exam. 09/01/2020 Patient is seen this morning and continues to be lethargic although arousable and fatigues very easily. Chest x-ray was done today showing chronic emphysematous and pulmonary fibrotic changes with worsening bilateral multifocal opacities with suspected infection progression or worsening CHF exacerbation. Infectious disease along with nephrology following and patient is maintained on IV antibiotics which was recently transitioned to Invance. Patient is continued on 4-5 L of oxygen via nasal cannula and per family she normally wears 3 L chronically. Patient will be given a dose of IV Lasix today. IV fluids have been discontinued. Patient is unable to stay awake long enough for oral intake, speech evaluated the patient and unable to do the assessment as patient was ex tremely lethargic and not following commands. Will have speech reevaluate the patient once more awake. Sodium is 134 with a potassium of 5.2 and creatinine slightly improved at 1.76. Magnesium is 1.7. Covid send out was negative. Will repeat a.m. labs and continue to monitor closely. Review of systems: Unable to obtain as patient is lethargic this morning Objective - Vital Signs Vital signs: Vital Signs Temp 98.7 F 09/01/20 04:55 Pulse 80 09/01/20 04:55 Resp 22 09/01/20 04:55 BP 130/72 09/01/20 04:55 Pulse Ox 93 L 09/01/20 04:55 Intake & Output 08/31/20 09/01/20 09/01/20 18:59 06:59 18:59 Intake Total 600 Output Total 1800 800 Balance -1800 -200 Intake: Oral 600 Output: Urine 800 300 Uretheral (Arroyo) 300 Stool 1000 500 Other: Voiding Method Indwelling Catheter Indwelling Catheter - Exam GENERAL: The patient is alert and oriented x1-2, not in any acute distress. Lethargic. Has generalized weakness, parkinsonian tremor HEENT: Pupils are round and equally reacting to light. EOMI. No scleral icterus. No conjunctival pallor. Normocephalic, atraumatic. No pharyngeal erythema. No thyromegaly. CARDIOVASCULAR: S1 and S2 present. No murmurs, rubs, or gallops. PULMONARY: Diminished breath sounds bilaterally with some scattered crackles noted. ABDOMEN: Soft, nontender, nondistended, normoactive bowel sounds. No palpable organomegaly. MUSCULOSKELETAL: No joint swelling or deformity. EXTREMITIES: No cyanosis, clubbing, or pedal edema. NEUROLOGICAL: Gross neurological examination did not reveal any focal deficits. Diffusely weak SKIN: No rashes. - Labs CBC & Chem 7: 08/31/20 05:50 09/01/20 08:55 Labs: Abnormal Lab Results - Last 24 Hours (Table) 09/01/20 Range/Units 08:55 Sodium 134 L (137-145) mmol/L Potassium 5.2 H (3.5-5.1) mmol/L BUN 46 H (7-17) mg/dL Creatinine 1.76 H (0.52-1.04) mg/dL Microbiology - Last 24 Hours (Table) 08/29/20 19:48 Urine Culture - Final Urine,Voided Proteus mirabilis 08/29/20 22:20 Blood Culture Gram Stain - Final Blood Blood Culture - Final Proteus mirabilis 08/31/20 05:50 Blood Culture - Preliminary Blood No Growth after 24 hours 08/30/20 00:29 Urine Culture - Preliminary Urine,Voided Gram Neg Bacilli Assessment and Plan Assessment: -Lactic acidosis: Secondary to severe sepsis -Acute renal failure secondary to sepsis probably acute tubular necrosis and prerenal azotemia, improving -Sepsis secondary to urinary tract infection, acute pyelonephritis: Patient has bilateral ureteral calculi patient has had a ureteral stent placement. IV antibiotics transitioned Invanz. Infectious disease is following preliminary culture showing gram-negative bacilli and blood culture showing Proteus mirabilis and repeat blood cultures have been obtained and pending at this time. Repeat urine culture pending as well for finalization. -Bilateral hydronephrosis, pyelonephritis -Stage II sacral decubitus ulcer wound care and infectious disease following -History of Parkinson's: Patient was resumed on her home medications -CVA in the past -Gastroesophageal reflux disease -Hypertension -seizure disorder -Hypothyroidism -DVT prophylaxis with Lovenox Plan: For above-mentioned chronic medical problems patient will be resumed on appropriate home medications. IV antibiotics transitioned to Invanz while awaiting for finalization. Initial urine and blood culture showing Proteus mirabilis and repeat urine preliminary showing gram-negative bacilli and most recent blood culture is negative. Infectious disease along with urology and nephrology following. Patient currently maintained on 4 L of oxygen and will continue at this time. Discussed with daughters about treatment plan and updated them and per patient's request would like to continue with full CODE STATUS. Prognosis is guarded. Will repeat a.m. labs and continue to monitor closely. Will order 2-D echo. Social work is following us patient is in ECF return once stabilized and discharged.
[2020-09-01 17:10] LABS: Glucose,Whole Blood 91 mg/dL (75-99)
--- NOTE | 2020-09-01 18:39 | PN ---
PROGRESS NOTE DATE OF SERVICE: 09/01/2020 REASON FOR FOLLOWUP: Complicated urinary tract infection. INTERVAL HISTORY: The patient was seen on rounds this morning. The patient was afebrile. The patient was awake, staring at the ceiling and did not answer any question. Symptom apparently started that morning per the nurse taking care of her. The patient did have a normal blood sugar. The patient did not answer any question. No vomiting or diarrhea or any other changes reported by nursing staff. PHYSICAL EXAMINATION: Blood pressure is 94/59 with a pulse of 78, temperature 97.8. She is 100% on 4 L nasal cannula. General description is an elderly female lying in bed in no distress. RESPIRATORY SYSTEM: Unlabored breathing. Clear to auscultation anteriorly. HEART: S1, S2. Regular rate and rhythm. ABDOMEN: Soft. No tenderness. LABS: Hemoglobin is 8.9, white count 21.5, BUN of 26, creatinine 1.76. Urine is showing ESBL E coli. The blood cultures were ESBL pathogen. DIAGNOSTIC IMPRESSION AND PLAN: Patient with a complicated urinary tract infection with on the culture report, both the blood and the urine showing ESBL. Antibiotic will be switched over to Invanz. Blood cultures repeat are pending as well as repeat urine cultures. Monitor clinical course closely. MMODL / IJN: [id number] /
[2020-09-01] MEDS: PRIMIDONE 25 MG TAB PO SCH (19:44)
[2020-09-01] MEDS: ASPIRIN 81 MG PO SCH (19:44)
[2020-09-01 20:31] LABS: Glucose,Whole Blood 97 mg/dL (75-99)
[2020-09-02] MEDS: LEVOTHYROXINE 50 MCG TAB PO SCH (04:18)
[2020-09-02] MEDS: traMADol 50 MG TAB PO SCH ×4 (04:18→23:14)
[2020-09-02] MEDS: ACETAMINOPHEN TAB 325 MG TAB PO SCH ×3 (04:18→19:46)
[2020-09-02 06:35] LABS: Basophils % (A) 0 %; Eosinophils # (A) 0.1 k/uL (0-0.7); Eosinophils % (A) 1 %; HCT 28.5 % (34.0-46.0); HGB 8.7 gm/dL (11.4-16.0); Hypochromasia Marked; Lymphocytes % (A) 8 %; MCH 31.3 pg (25.0-35.0); MCHC 30.5 g/dL (31.0-37.0); MCV 102.8 fL (80.0-100.0); Macrocytosis Slight; Mean Platelet Volume 10.8; Monocytes # (A) 0.9 k/uL (0-1.0); Monocytes % (A) 7 %; Neutrophils # (A) 9.9 k/uL (1.3-7.7); Neutrophils % (A) 80 %; Platelet Count 147 k/uL (150-450); RBC 2.77 m/uL (3.80-5.40); RDW 15.2 % (11.5-15.5); WBC 12.3 k/uL (3.8-10.6)
[2020-09-02 07:27] LABS: Glucose,Whole Blood 96 mg/dL (75-99)
[2020-09-02] MEDS: HYDROcodone/APAP 5-325MG 1 EACH TAB PO PRN ×2 (07:40→19:46)
[2020-09-02] MEDS: PANTOPRAZOLE 40 MG TABLET PO SCH (07:52)
[2020-09-02] MEDS: SIMETHICONE 80 MG CHEWABLE PO SCH ×3 (07:53→16:32)
[2020-09-02] MEDS: levETIRAcetam 500 MG TAB PO SCH ×2 (07:53→19:19)
[2020-09-02] MEDS: METOPROLOL TARTRATE 12.5 MG TAB PO SCH ×2 (07:53→19:19)
[2020-09-02] MEDS: ERTAPENEM 0.5 GM in SODIUM CHLORIDE 0.9% 50 ML IVPB SCH (07:54)
[2020-09-02] MEDS: CARBIDOPA-LEVODOPA 25-100 MG 1 EACH TAB PO SCH ×2 (07:54→12:02)
--- NOTE | 2020-09-02 08:27 | XR ---
EXAMINATION TYPE: XR chest 1V DATE OF EXAM: 09/02/2020 COMPARISON: Chest x-ray 09/01/2020 HISTORY: Shortness of breath TECHNIQUE: Single frontal view of the chest is obtained. FINDINGS: Findings are similar, there is obscured right hemidiaphragm, increased attenuation at the lung bases right greater than left. No evident pneumothorax. Cardiac mediastinal silhouette shows a s imilar appearance, prominence of pulmonary artery may be indicative of pulmonary artery hypertension. Mediastinum shows a widened appearance. The aorta is dense. IMPRESSION: Correlate for pneumonia, possible associated effusion, possible aortic aneurysm, pulmona ry artery hypertension, indeterminate mediastinal widening, patient is rotated
--- NOTE | 2020-09-02 08:52 | ECHOF ---
Referral Reason:Shortness of breath MEASUREMENTS -------- HEIGHT: 160.0 cm WEIGHT: 119.7 kg BP: 94/59 RVIDd: 4.1 cm (< 3.3) IVSd: 1.1 cm (0.6 - 1.1) LVIDd: 3.9 cm (3.9 - 5.3) LVPWd: 1.2 cm (0.6 - 1.1) IVSs: 1.5 cm LVIDs: 2.5 cm LVPWs: 1.5 cm LAESV Index (A-L): 30.58 ml/m Ao Diam: 3.0 cm (2.0 - 3.7) AV Cusp: 1.8 cm (1.5 - 2.6) LA Diam: 5.3 cm (2.7 - 3.8) MV EXCURSION: 17.009 mm (> 18.000) MV EF SLOPE: 85 mm/s (70 - 150) EPSS: 0.4 cm MV E Padilla: 0.96 m/s MV DecT: 216 ms MV A Padilla: 1.16 m/s MV E/A Ratio: 0.83 RAP: 5.00 mmHg RVSP: 49.95 mmHg FINDINGS -------- Sinus rhythm. This was a technically difficult study with suboptimal apical views. The left ventricular size is normal. There is mild concentric left ventricular hypertrophy. Overa ll left ventricular systolic function is low-normal with, an EF between 50 - 55 %. Atypical septal wall motion The right ventricle is moderately enlarged. Paradoxical motion of the right ventricular septum is c onsistent with right ventricular overload and/or elevated right ventricular end-diastolic pressure. Moderator band is visualized in the right ventricular apex. LA is midly dilated 29-33ml/m2. The right atrium was not well visualized. 5.0mg of Lumason was utilized for enhancement of images Interatrial and interventricular septum intact. There is mild aortic valve sclerosis. There is no evidence of aortic regurgitation. There is no e vidence of aortic stenosis. Mild mitral annular calcification present. Mild mitral regurgitation is present. Moderate to severe tricuspid regurgitation present. There is moderate pulmonary hypertension. The right ventricular systolic pressure, as measured by Doppler, is 49.95mmHg. There is no pulmonic regurgitation present. The aortic root size is normal. IVC Not well visulized. There is no pericardial effusion. CONCLUSIONS -------- 1. The left ventricular size is normal. 2. There is mild concentric left ventricular hypertrophy. 3. Overall left ventricular systolic function is low-normal with, an EF between 50 - 55 %. 4. Atypical septal wall motion 5. The right ventricle is moderately enlarged. 6. LA is midly dilated 29-33ml/m2. 7. There is mild aortic valve sclerosis. 8. Mild mitral regurgitation is present. 9. Moderate to severe tricuspid regurgitation present. 10. There is moderate pulmonary hypertension. 11. The right ventricular systolic pressure, as measured by Doppler, is 49.95mmHg. TRUCK SERVICE MANAGER: Melody Lloyd RDCS
[2020-09-02 09:50] LABS: African American GFR (CKD) 29.2 (60.0-200.0); Anion Gap 11.5 mmol/L (4.00-12.00); BUN/Creat Ratio 32.78 Ratio (12.00-20.00); Calcium 8.7 mg/dL (8.7-10.3); Carbon Dioxide 19.5 mmol/L (21.6-31.8); Magnesium 1.7 mg/dL (1.5-2.4); Non-African American GFR(CKD) 25.2 (60.0-200.0); Potassium 5.2 mmol/L (3.5-5.5)
[2020-09-02] MEDS: HEPARIN SODIUM,PORCINE/PF 5,000 UNIT/0.5 ML SYRINGE SQ SCH ×2 (10:49→19:45)
[2020-09-02] MEDS: allopurinoL 100 MG TAB PO SCH (10:50)
[2020-09-02] MEDS: SERTRALINE 100 MG TAB PO SCH (10:50)
[2020-09-02] MEDS: LACTULOSE 20 GM/30 ML CUP PO SCH ×2 (10:50→20:09)
[2020-09-02 11:02] LABS: Glucose,Whole Blood 112 mg/dL (75-99)
[2020-09-02] MEDS ORDERED: FUROSEMIDE 10 MG/ML 4 ML VIAL IV STA (11:02)
--- NOTE | 2020-09-02 11:04 | P.PN ---
Subjective Patient is seen in follow-up for acute kidney injury. Renal function stable. Nonoliguric. Currently on Ventimask. Remains off IV fluids. Did receive a dose of IV Lasix yesterday. Oral intake is poor. Vital signs are stable. General: The patient appeared well nourished and normally developed. HEENT: On Ventimask. LUNGS: Breath sounds decreased. HEART: Rate and Rhythm are regular. ABDOMEN: Soft, no distention. EXTREMITITES: No edema. Objective - Vital Signs Vital signs: Vital Signs Temp 97.8 F 09/02/20 08:05 Pulse 92 09/02/20 08:05 Resp 18 09/02/20 08:05 BP 138/51 09/02/20 08:05 Pulse Ox 95 09/02/20 09:00 Intake & Output 09/01/20 09/02/20 09/02/20 18:59 06:59 18:59 Intake Total 0 Output Total 500 Balance -500 Intake: Oral 0 Output: Urine 500 Uretheral (Arroyo) 200 Other: Voiding Method Indwelling Catheter Indwelling Catheter Indwelling Catheter # Voids 0 # Bowel Movements 1 - Labs CBC & Chem 7: 09/02/20 05:32 09/02/20 05:32 Labs: Abnormal Lab Results - Last 24 Hours (Table) 09/01/20 09/02/20 09/02/20 Range/Units 11:52 05:32 05:32 WBC 12.3 H (3.8-10.6) k/uL RBC 2.77 L (3.80-5.40) m/uL Hgb 8.7 L (11.4-16.0) gm/dL Hct 28.5 L (34.0-46.0) % MCV 102.8 H (80.0-100.0) fL MCHC 30.5 L (31.0-37.0) g/dL Plt Count 147 L (150-450) k/uL Neutrophils # 9.9 H (1.3-7.7) k/uL Sodium 134 L (135-145) mmol/L Carbon Dioxide 19.5 L (21.6-31.8) mmol/L BUN 59.0 H (9.0-27.0) mg/dL Creatinine 1.8 H (0.6-1.5) mg/dL Est GFR (CKD-EPI)AfAm 29.2 L (60.0-200.0) Est GFR (CKD-EPI)NonAf 25.2 L (60.0-200.0) BUN/Creatinine Ratio 32.78 H (12.00-20.00) Ratio POC Glucose (mg/dL) 104 H (75-99) mg/dL Microbiology - Last 24 Hours (Table) 08/29/20 22:20 Blood Culture Gram Stain - Final Blood Blood Culture - Final Proteus mirabilis 08/31/20 05:50 Blood Culture - Preliminary Blood No Growth after 48 hours 08/30/20 00:29 Urine Culture - Final Urine,Voided Proteus mirabilis 08/29/20 19:48 Urine Culture - Final Urine,Voided Proteus mirabilis Assessment and Plan Plan: Assessment: 1. Acute kidney injury secondary to ATN from sepsis and obstructive uropathy. Creatinine peaked at 1.86 this admission and is stable at 1.8 today. Creatinine in December 2019 was 0.8. 2. Hydronephrosis and nephrolithiasis status post bilateral ureteral stent placement on August 30. Urology following. 3. Severe sepsis secondary to Proteus UTI and bacteremia. On IV antibiotics. 4. Volume overload. Effusions noted on chest x-ray. Status post IV Lasix yesterday. 5. Acute on chronic diastolic CHF and moderate to severe tricuspid regurgitation and moderate pulmonary hypertension. 6. Metabolic acidosis secondary to acute kidney injury. Plan: Remains off IV fluids. Encourage oral intake. Repeat Lasix 40 mg IV once today. Avoid nephrotoxins. Continue to monitor renal function and urine output. Wean FiO2. Continue to monitor renal function and urine output. Add oral bicarbonate.
[2020-09-02] MEDS ORDERED: SODIUM BICARBONATE TAB 650 MG TAB PO SCH (11:15)
[2020-09-02 12:34] VITALS: BMI 46.9
[2020-09-02 13:46] LABS: ABG Base Excess -4.2 mmol/L; ABG HCO3 25 mmol/L (21-25); ABG Oxygen Saturation 97.6 % (94-97); ABG PCO2 69 mmHg (35-45); ABG PO2 114 mmHg (83-108); ABG TCO2 27 mmol/L (19-24); Allen Test Performed? Yes
[2020-09-02 13:47] LABS: ABG PH 7.16 (7.35-7.45)
[2020-09-02] MEDS ORDERED: SODIUM BICARB 8.4% 50 ML SYR (1 MEQ/ML) IV STA (14:26)
--- NOTE | 2020-09-02 15:00 | P.CNPUL ---
History of Present Illness Consult date: 09/02/20 Reason for consult: dyspnea Chief complaint: Altered mental status History of present illness: 85-year-old female patient, hospitalized for complications of gram-negative UTI and sepsis. The patient was having right flank pain and CAT scan of the abdomen showed moderate right-sided hydronephrosis and the patient underwent cystoscopy and bilateral ureteral stent insertion on 08/30/2020. I was asked to evaluate this patient as the patient was having some altered mentation and respiratory acidosis. Upon further evaluation, I started the patient has been infected with Proteus mirabilis and this was of a urinary source and the blood culture was also positive. She is currently on IV Invanz. Hemodynamically stable and she was on 2 L. The series of chest x-rays were done on this patient and the patient developed some right lower lobe consolidation/effusion and during the course of her treatment the patient also developed an acute kidney injury. Her serum creatinine came up to 1.8 from a baseline of 1.1. The blood gases from this morning showed a pH of 7.16 with a pCO2 of 69 and pO2 of 114 and this was on FiO2 of 36%. Serum bicarb is 19. Anion gap is 11. Lactic acid level is down to 0.9. Her COVID-19 testing was negative. The patient is morbidly obese. She carries a BMI of 46.5. She has very small lung volumes and a chest x-ray and obviously there is a component of restrictive lung disease and chronic hypercapnic respiratory failure as the patient has some degree of metabolic alkalosis with a serum bicarb of 29 at time of admission. Assessed his blood gases consistent with acute on top of chronic hypercapnic respiratory failure/acidosis contributing factors could be metabolic acidosis and chronic respiratory insufficiency with further complications related to the right lower lobe pneumonia/effusion. She is a residential resident. She is a poor historian. . At the bedside and all of this information was discussed with her. Review of Systems ROS unobtainable: due to mental status Past Medical History Past Medical History: CVA/TIA, GERD/Reflux, Hypertension, Memory Impairment, Osteoarthritis (OA), Seizure Disorder, Thyroid Disorder Additional Past Medical History / Comment(s): restless leg syndrome, hemiplegia, hemiparesis, anemia, History of Any Multi-Drug Resistant Organisms: ESBL, MRSA Date of last positivie culture/infection: 08/30/20 ESBL/ MRSA 2008 MDRO Source:: ESBL URINE MRSA STOOL Past Surgical History: Back Surgery, Cholecystectomy Additional Past Surgical History / Comment(s): ileostomy Past Anesthesia/Blood Transfusion Reactions: No Reported Reaction Past Psychological History: Anxiety Smoking Status: Never smoker Past Alcohol Use History: Unable to Obtain Past Drug Use History: Unable to Obtain - Past Family History Father Family Medical History: Cancer Additional Family Medical History / Comment(s): lung CA Mother Family Medical History: Cancer Sister(s) Additional Family Medical History / Comment(s): emphysema Medications and Allergies Home Medications Medication Instructions Recorded Confirmed Type Acetaminophen Tab [Tylenol] 650 mg PO TID@0500,1300,2100 09/18/18 08/29/20 History Aspirin 81 mg PO HS@199909/18/18 08/29/20 History Levothyroxine Sodium [Synthroid] 50 mcg PO DAILY@0500 09/18/18 08/29/20 History Melatonin 3 mg PO HS@199909/18/18 08/29/20 History Sertraline [Zoloft] 100 mg PO DAILY 09/18/18 08/29/20 History Lactulose 30 gm PO BID 06/08/19 08/29/20 History Primidone [Mysoline] 25 mg PO HS@199906/08/19 08/29/20 History Allopurinol [Zyloprim] 300 mg PO DAILY 01/12/20 08/29/20 History Carbidopa-Levodopa 25-100 mg 1 tab PO AC-BID@0700,1300 01/12/20 08/29/20 History [Sinemet 25-100 mg] Mag Hydrox/Aluminum Hyd/Simeth 30 ml PO Q6H PRN 01/12/20 08/29/20 History [Mylanta Maximum Strength Liq] Metoprolol Tartrate [Lopressor] 12.5 mg PO BID@0700,1900 01/12/20 08/29/20 History rOPINIRole HCL [Requip] 0.5 mg PO TID@0700,1300,1900 01/12/20 08/29/20 History Baclofen [Lioresal] 10 mg PO DAILY tab 01/16/20 08/29/20 Rx Benzocaine [Anbesol] 1 applic MUCOUS MEM TID PRN 08/29/20 08/29/20 History Benzocaine/Menthol [Cepacol Sore 1 lozenge MM Q4H PRN 08/29/20 08/29/20 History Throat Lozenge] HYDROcodone/APAP 5-325MG [[place] 1 tab PO Q8H PRN 08/29/20 08/29/20 History 5-325] Pantoprazole Sodium [Protonix] 40 mg PO DAILY 08/29/20 08/29/20 History Simethicone Chew [Mylicon Chew] 80 mg PO AC-TID@07,12,17 08/29/20 08/29/20 History amLODIPine [Norvasc] 10 mg PO DAILY@0500 08/29/20 08/29/20 History levETIRAcetam [Keppra] 500 mg PO BID@0700,1900 08/29/20 08/29/20 History traMADol HCL 50 mg PO Q6H 08/29/20 08/29/20 History Allergies Allergy/AdvReac Type Severity Reaction Status Date / Time amoxicillin [From Augmentin] Allergy Unknown Verified 08/29/20 20:13 clavulanic acid Allergy Unknown Verified 08/29/20 20:13 [From Augmentin] codeine Allergy Unknown Verified 08/29/20 20:13 Physical Exam Vitals: Vital Signs Temp Pulse Pulse Resp BP Pulse Ox 09/02/20 13:08 98.8 F 71 18 112/51 97 09/02/20 10:21 85 19 09/02/20 09:00 95 09/02/20 08:05 97.8 F 92 18 138/51 95 09/02/20 03:49 98.2 F 90 18 117/64 94 L 09/01/20 20:05 89 78 20 09/01/20 20:04 98 09/01/20 19:30 97.8 F 82 20 100 09/01/20 17:14 100 09/01/20 16:59 94 L Intake and Output 09/01/20 09/02/20 09/02/20 22:59 06:59 14:59 Intake Total 0 Output Total 100 400 Balance -100 -400 Intake: Oral 0 Output: Urine 100 400 Uretheral (Arroyo) 200 Other: Voiding Method Indwelling Catheter Indwelling Catheter # Voids 0 # Bowel Movements 1 Weight 120.202 kg Obese, comfortable, not having any acute respiratory distress, BMI 46.9 Head exam was generally normal. There was no scleral icterus or corneal arcus. Mucous membranes were moist. Neck was supple and without jugular venous distension, thyromegaly, or carotid bruits. Carotids were easily palpable bilaterally. There was no adenopathy. Mallampati class IV Lungs diminished specially in the right lung base along with some dullness to percussion. No wheezes. Cardiac exam revealed the PMI to be normally situated and sized. The rhythm was regular and no extrasystoles were noted during several minutes of auscultation. The first and second heart sounds were normal and physiologic splitting of the second heart sound was noted. There were no murmurs, rubs, clicks, or gallops. Abdomen is obese and orders cannot be accurately palpated. No direct tenderness. No rebound tenderness. No guarding. Examination of the extremities revealed easily palpable radial, femoral and pedal pulses. There was no cyanosis, clubbing or edema. Examination of the skin revealed no evidence of significant rashes, suspicious appearing nevi or other concerning lesions. Neurologically, the patient underlying dementia. She was arousable and she was following some simple commands. She cannot provide any history. She has obvious impairment of the cognitive functions. She does have also some chronic deficits related to previous CVA. Results - Laboratory Findings CBC and BMP: 09/02/20 05:32 09/02/20 05:32 ABG ABG pH 7.16 (7.35-7.45) L* 09/02/20 13:38 ABG pCO2 69 mmHg (35-45) H 09/02/20 13:38 ABG pO2 114 mmHg (83-108) H 09/02/20 13:38 ABG O2 Saturation 97.6 % (94-97) H 09/02/20 13:38 PT/INR, D-dimer PT 11.0 sec (9.0-12.0) 08/29/20 19:48 INR 1.0 (<1.2) 08/29/20 19:48 Abnormal lab findings: Abnormal Labs 08/29/20 08/29/20 08/29/20 19:48 19:48 19:48 WBC 21.1 H RBC Hgb Hct MCV 100.2 H MCHC RDW Plt Count 149 L Neutrophils # Neutrophils # (Manual) 20.40 H Lymphocytes # (Manual) 0.21 L Monocytes # Monocytes # (Manual) ABG pH ABG pCO2 ABG pO2 ABG Total CO2 ABG O2 Saturation Sodium 136 L Potassium Carbon Dioxide BUN Creatinine 1.11 H Est GFR (CKD-EPI)AfAm Est GFR (CKD-EPI)NonAf BUN/Creatinine Ratio Glucose 118 H POC Glucose (mg/dL) Plasma Lactic Acid Flo Calcium Magnesium 1.4 L Albumin Urine Appearance Cloudy H Urine Protein 1+ H Urine Blood Moderate H Ur Leukocyte Esterase Large H Urine RBC 53 H Urine WBC 171 H Urine Bacteria Many H Urine Mucus Rare H 08/29/20 08/29/20 08/30/20 19:48 22:38 02:48 WBC 28.0 H RBC 3.46 L Hgb 10.6 L Hct MCV 103.3 H MCHC 29.6 L RDW Plt Count 148 L Neutrophils # Neutrophils # (Manual) 26.30 H Lymphocytes # (Manual) 0.84 L Monocytes # Monocytes # (Manual) ABG pH ABG pCO2 ABG pO2 ABG Total CO2 ABG O2 Saturation Sodium Potassium Carbon Dioxide BUN Creatinine Est GFR (CKD-EPI)AfAm Est GFR (CKD-EPI)NonAf BUN/Creatinine Ratio Glucose POC Glucose (mg/dL) Plasma Lactic Acid Flo 2.4 H* 2.7 H* Calcium Magnesium Albumin Urine Appearance Urine Protein Urine Blood Ur Leukocyte Esterase Urine RBC Urine WBC Urine Bacteria Urine Mucus 08/30/20 08/30/20 08/30/20 02:48 02:48 05:13 WBC RBC Hgb Hct MCV MCHC RDW Plt Count Neutrophils # Neutrophils # (Manual) Lymphocytes # (Manual) Monocytes # Monocytes # (Manual) ABG pH ABG pCO2 ABG pO2 ABG Total CO2 ABG O2 Saturation Sodium 135 L Potassium Carbon Dioxide BUN 18 H Creatinine 1.22 H Est GFR (CKD-EPI)AfAm Est GFR (CKD-EPI)NonAf BUN/Creatinine Ratio Glucose 110 H POC Glucose (mg/dL) Plasma Lactic Acid Flo 4.8 H* 4.3 H* Calcium Magnesium Albumin 3.0 L Urine Appearance Urine Protein Urine Blood Ur Leukocyte Esterase Urine RBC Urine WBC Urine Bacteria Urine Mucus 08/30/20 08/30/20 08/30/20 10:02 10:02 10:02 WBC 23.6 H RBC 2.96 L Hgb 9.2 L Hct 30.5 L MCV 103.2 H MCHC 30.3 L RDW 15.6 H Plt Count Neutrophils # 20.8 H Neutrophils # (Manual) 21.20 H Lymphocytes # (Manual) 0.94 L Monocytes # 1.1 H Monocytes # (Manual) 1.65 H ABG pH ABG pCO2 ABG pO2 ABG Total CO2 ABG O2 Saturation Sodium 135 L Potassium Carbon Dioxide BUN 22 H Creatinine 1.38 H Est GFR (CKD-EPI)AfAm Est GFR (CKD-EPI)NonAf BUN/Creatinine Ratio Glucose 105 H POC Glucose (mg/dL) Plasma Lactic Acid Flo 3.2 H* Calcium 8.1 L Magnesium Albumin Urine Appearance Urine Protein Urine Blood Ur Leukocyte Esterase Urine RBC Urine WBC Urine Bacteria Urine Mucus 08/31/20 08/31/20 09/01/20 05:50 05:50 08:55 WBC 21.5 H RBC 2.89 L Hgb 8.9 L Hct 30.2 L MCV 104.3 H MCHC 29.6 L RDW Plt Count 144 L Neutrophils # 18.3 H Neutrophils # (Manual) Lymphocytes # (Manual) Monocytes # 1.2 H Monocytes # (Manual) ABG pH ABG pCO2 ABG pO2 ABG Total CO2 ABG O2 Saturation Sodium 131 L 134 L Potassium 5.2 H Carbon Dioxide BUN 32 H 46 H Creatinine 1.86 H 1.76 H Est GFR (CKD-EPI)AfAm Est GFR (CKD-EPI)NonAf BUN/Creatinine Ratio Glucose POC Glucose (mg/dL) Plasma Lactic Acid Flo Calcium Magnesium Albumin Urine Appearance Urine Protein Urine Blood Ur Leukocyte Esterase Urine RBC Urine WBC Urine Bacteria Urine Mucus 09/01/20 09/02/20 09/02/20 11:52 05:32 05:32 WBC 12.3 H RBC 2.77 L Hgb 8.7 L Hct 28.5 L MCV 102.8 H MCHC 30.5 L RDW Plt Count 147 L Neutrophils # 9.9 H Neutrophils # (Manual) Lymphocytes # (Manual) Monocytes # Monocytes # (Manual) ABG pH ABG pCO2 ABG pO2 ABG Total CO2 ABG O2 Saturation Sodium 134 L Potassium Carbon Dioxide 19.5 L BUN 59.0 H Creatinine 1.8 H Est GFR (CKD-EPI)AfAm 29.2 L Est GFR (CKD-EPI)NonAf 25.2 L BUN/Creatinine Ratio 32.78 H Glucose POC Glucose (mg/dL) 104 H Plasma Lactic Acid Flo Calcium Magnesium Albumin Urine Appearance Urine Protein Urine Blood Ur Leukocyte Esterase Urine RBC Urine WBC Urine Bacteria Urine Mucus 09/02/20 09/02/20 10:59 13:38 WBC RBC Hgb Hct MCV MCHC RDW Plt Count Neutrophils # Neutrophils # (Manual) Lymphocytes # (Manual) Monocytes # Monocytes # (Manual) ABG pH 7.16 L* ABG pCO2 69 H ABG pO2 114 H ABG Total CO2 27 H ABG O2 Saturation 97.6 H Sodium Potassium Carbon Dioxide BUN Creatinine Est GFR (CKD-EPI)AfAm Est GFR (CKD-EPI)NonAf BUN/Creatinine Ratio Glucose POC Glucose (mg/dL) 112 H Plasma Lactic Acid Flo Calcium Magnesium Albumin Urine Appearance Urine Protein Urine Blood Ur Leukocyte Esterase Urine RBC Urine WBC Urine Bacteria Urine Mucus Assessment and Plan Plan: 1 altered mental status, multifactorial. The patient has metabolic encephal opathy in addition to that the patient has acute on chronic hypercapnic respiratory failure with respiratory metabolic acidosis or contributing to the altered mentation. Noted the patient has some baseline dementia 2 acute kidney injury with development of an anion gap metabolic acidosis 3 metabolic acidosis of a non-anion gap type in addition to acute on top of chronic hypercapnic respiratory failure. The patient is morbidly obese and probably she has some restrictive lung disease and unable to wash out the carbon dioxide and the patient could've encountered the situation of acute on top of chronic hypercapnic respiratory failure especially with the setting of metabolic acidosis and right lower lobe pneumonia 4 right lower lobe pneumonia/infiltration/consolidation 5 septic shock secondary to Proteus UTI and septicemia/bacteremia 6 right-sided hydronephrosis [id number] stent insertion 7 morbid obesity with a BMI of 46.9 8 previous history of CVA 9 dementia 10 residential resident 11 memory impairment secondary to dementia 12 hypertension 13 14 hypothyroidism 15 osteoarthritis Plan Continue IV Invanz regarding Proteus mirabilis septicemia Monitor renal function The patient has an anion gap metabolic acidosis. We'll correct the bicarb deficit improved acid-base status. I'm going to give the patient to ampules of sodium bicarbonate total of 100 mEq. Following that she will placed on a bicarb infusion over the next 24 hours at the rate of 75 mL an hour of 150 mEq of sodium bicarbonate mixed in D5 water May need to use BiPAP for the next 24 hours and we'll utilize a noninvasive depression of 10/5 We will continue IV Invanz covering UTI and possibly right lower lobe pneumonia Establish CODE STATUS. Advanced directives have been established apparently and would like to have all the paperwork forwarded to us to document and input in the medical record the patient's CODE STATUS and advanced directives Repeat chest x-ray in the morning Repeat blood gases in the morning We'll follow
--- NOTE | 2020-09-02 15:53 | PN ---
PROGRESS NOTE DATE OF SERVICE: 09/02/2020 REASON FOR FOLLOWUP: Urinary tract infection. INTERVAL HISTORY: The patient is afebrile. The patient is slightly more awake and alert today. She is breathing comfortably. No chest pain or cough. Denies any abdominal pain. No diarrhea has been reported. PHYSICAL EXAMINATION: Blood pressure 112/51, pulse of 71, temperature 98.8. She is 97% on 4 L nasal cannula. General description is an elderly female lying in bed in no distress. RESPIRATORY SYSTEM: Unlabored breathing. Clear to auscultation anteriorly. HEART: S1, S2. Regular rate and rhythm. ABDOMEN: Soft. No tenderness. LABS: White count is down to 12.3, BUN of 59, creatinine 1.8. DIAGNOSTIC IMPRESSION AND PLAN: Patient with extended-spectrum beta-lactamase Proteus mirabilis urinary tract infection and bacteremia. Repeat blood culture is negative. She is on Invanz. Recommend getting a midline to continue on the IV Invanz as an outpatient to finish a total 2-week course of therapy. Continue supportive care. MMODL / IJN: [id number] /
--- NOTE | 2020-09-02 15:57 | P.PN ---
Subjective Progress Note Date: 09/02/20 85-year-old female was transferred here from correction after she started complaining of pain in the right flank area moderate severity sharp and crampy in nature found to have bilateral obstructing ureteral stones from the CT urine analysis significantly abnormal consistent with infection and purulent drainage patient presently has a Arroyo catheter, patient underwent cystoscopy and ureteral stent placement. Patient was febrile with elevated white blood cell count chest x-ray mostly is consistent with pulmonary edema on the BNP is only minimally elevated and patient has lactic acidosis because of which I'm continuing antibiotics patient had lactic as well as on 3.2. Covid 19 was negative patient had ESBL Proteus in the urine in the past because of which patient's levofloxacin is being switched to meropenem and infectious disease will evaluated the patient patient also has a stage II sacral decubitus ulcer for which wound care is being consulted 08/31/2020 Patient is seen and evaluated this morning continues to be lethargic although arousable and continues to be confused when aroused. An [facility]team is called on the patient yesterday evening or increasing shortness of breath and patient was placed on nonrebreather and chest x-ray showed probable CHF was given 80 mg of Lasix IV push. Patient is continued on 4 L via nasal cannula. Infectious disease and urology following patient's IV antibiotic have been switched to ceftriaxone while awaiting for cultures to finalized. Blood culture preliminary showing Proteus species and urine culture preliminary was showing gram-negative bacilli with repeat cultures obtained and currently pending. IV fluids have been discontinued and patient is currently on 4 L and denies any shortness of breath. Patient is lethargic although arousable on exam. 09/01/2020 Patient is seen this morning and continues to be lethargic although arousable and fatigues very easily. Chest x-ray was done today showing chronic emphysematous and pulmonary fibrotic changes with worsening bilateral multifocal opacities with suspected infection progression or worsening CHF exacerbation. Infectious disease along with nephrology following and patient is maintained on IV antibiotics which was recently transitioned to Invance. Patient is continued on 4-5 L of oxygen via nasal cannula and per family she normally wears 3 L chronically. Patient will be given a dose of IV Lasix today. IV fluids have been discontinued. Patient is unable to stay awake long enough for oral intake, speech evaluated the patient and unable to do the assessment as patient was ex tremely lethargic and not following commands. Will have speech reevaluate the patient once more awake. Sodium is 134 with a potassium of 5.2 and creatinine slightly improved at 1.76. Magnesium is 1.7. Covid send out was negative. Will repeat a.m. labs and continue to monitor closely. 09/02/2020 Patient is seen this morning appears more awake although continues to be lethargic and falls asleep easily. Patient is maintained on nasal cannula with intermittent Ventimask and chest x-ray today shows to correlate for pneumonia with possible associated effusion, possible aortic aneurysm, pulmonary artery hypertension and indeterminate mediastinal widening. pulmonary was consulted. Nephrology, urology and infectious disease also following. Patient continues on Invanz while awaiting for cultures to finalize. IV fluids have been discontinued and will add sodium bicarb and patient will be placed on BiPAP with another dose of Lasix given today. Review of systems: Unable to obtain as patient is lethargic this morning Objective - Vital Signs Vital signs: Vital Signs Temp 97.8 F 09/02/20 08:05 Pulse 92 09/02/20 08:05 Resp 18 09/02/20 08:05 BP 138/51 09/02/20 08:05 Pulse Ox 95 09/02/20 09:00 Intake & Output 09/01/20 09/02/20 09/02/20 18:59 06:59 18:59 Intake Total 0 Output Total 500 Balance -500 Intake: Oral 0 Output: Urine 500 Uretheral (Arroyo) 200 Other: Voiding Method Indwelling Catheter Indwelling Catheter # Voids 0 # Bowel Movements 1 - Exam GENERAL: The patient is alert and oriented x1-2, not in any acute distress. Lethargic although more awake today. Has generalized weakness, parkinsonian tremor HEENT: Pupils are round and equally reacting to light. EOMI. No scleral icterus. No conjunctival pallor. Normocephalic, atraumatic. No pharyngeal erythema. No thyromegaly. CARDIOVASCULAR: S1 and S2 present. No murmurs, rubs, or gallops. PULMONARY: Diminished breath sounds bilaterally with some scattered crackles noted. ABDOMEN: Soft, nontender, nondistended, normoactive bowel sounds. No palpable organomegaly. MUSCULOSKELETAL: No joint swelling or deformity. EXTREMITIES: No cyanosis, clubbing, or pedal edema. NEUROLOGICAL: Gross neurological examination did not reveal any focal deficits. Diffusely weak SKIN: No rashes. - Labs CBC & Chem 7: 09/02/20 05:32 09/02/20 05:32 Labs: Abnormal Lab Results - Last 24 Hours (Table) 09/01/20 09/01/20 09/02/20 Range/Units 08:55 11:52 05:32 WBC 12.3 H (3.8-10.6) k/uL RBC 2.77 L (3.80-5.40) m/uL Hgb 8.7 L (11.4-16.0) gm/dL Hct 28.5 L (34.0-46.0) % MCV 102.8 H (80.0-100.0) fL MCHC 30.5 L (31.0-37.0) g/dL Plt Count 147 L (150-450) k/uL Neutrophils # 9.9 H (1.3-7.7) k/uL Sodium 134 L (137-145) mmol/L Potassium 5.2 H (3.5-5.1) mmol/L BUN 46 H (7-17) mg/dL Creatinine 1.76 H (0.52-1.04) mg/dL POC Glucose (mg/dL) 104 H (75-99) mg/dL Microbiology - Last 24 Hours (Table) 08/31/20 05:50 Blood Culture - Preliminary Blood No Growth after 48 hours 08/30/20 00:29 Urine Culture - Final Urine,Voided Proteus mirabilis 08/29/20 19:48 Urine Culture - Final Urine,Voided Proteus mirabilis 08/29/20 22:20 Blood Culture Gram Stain - Final Blood Blood Culture - Final Proteus mirabilis Assessment and Plan Assessment: -Lactic acidosis: Secondary to severe sepsis -Acute hypercapnic respiratory failure and currently requiring BiPAP -Right lower lobe pneumonia as noted on x-ray -Acute renal failure secondary to sepsis probably acute tubular necrosis and p rerenal azotemia, improving -Altered mental status, multifactorial secondary to metabolic acidosis, acute hypercapnic respiratory failure, infection, sepsis, underlying dementia -Sepsis secondary to urinary tract infection, acute pyelonephritis: Patient has bilateral ureteral calculi patient has had a ureteral stent placement. IV antibiotics transitioned Invanz. Infectious disease is following and culture showing Proteus mirabilis -Acute on chronic diastolic congestive heart failure, acute exacerbation with effusions noted on x-ray, echo shows LV systolic function is low to normal with an EF between 50 and 55% with some mild mitral regurgitation and moderate to severe tricuspid regurgitation along with moderate pulmonary hypertension present -Bilateral hydronephrosis, pyelonephritis -Stage II sacral decubitus ulcer wound care and infectious disease following -History of Parkinson's: Patient was resumed on her home medications -CVA in the past -Gastroesophageal reflux disease -Hypertension -seizure disorder -Hypothyroidism -DVT prophylaxis with Lovenox Plan: For above-mentioned chronic medical problems patient will be resumed on appropriate home medications. IV antibiotics transitioned to Invanz cultures finalizing showing Proteus mirabilis. His recent blood cultures have been negative. Infectious disease along with urology and nephrology following. Pulmonary consulted for the possibility of pneumonia with volume overload and acute respiratory failure. Patient currently maintained on venti mask and being transitioned to BiPAP. No CODE STATUS was changed. Prognosis is guarded. Will repeat a.m. labs and continue to monitor closely. Social work is following as patient is an ECF return once stabilized and discharged.
[2020-09-02] MEDS: DEXTROSE 5% IN WATER 1,000 ML with SODIUM BICARB (1 MEQ/ML) 150 ML IV SCH (16:32)
[2020-09-02 17:37] LABS: Glucose,Whole Blood 104 mg/dL (75-99)
[2020-09-02] MEDS: IPRATROPIUM-ALBUTEROL 3 ML NEB INHALATION SCH (18:49)
[2020-09-02] MEDS: BUDESONIDE 0.5 MG/2 ML NEBU INHALATION SCH (18:49)
[2020-09-02] MEDS: PRIMIDONE 25 MG TAB PO SCH (19:24)
[2020-09-02] MEDS: ASPIRIN 81 MG PO SCH (19:24)
[2020-09-02 20:14] LABS: Glucose,Whole Blood 146 mg/dL (75-99)
[2020-09-03] MEDS: traMADol 50 MG TAB PO SCH ×4 (05:08→22:12)
[2020-09-03] MEDS: ACETAMINOPHEN TAB 325 MG TAB PO SCH ×3 (05:08→20:10)
[2020-09-03] MEDS: LEVOTHYROXINE 50 MCG TAB PO SCH (05:09)
[2020-09-03] MEDS: DEXTROSE 5% IN WATER 1,000 ML with SODIUM BICARB (1 MEQ/ML) 150 ML IV SCH ×2 (05:54→15:02)
[2020-09-03 07:32] LABS: Glucose,Whole Blood 110 mg/dL (75-99)
[2020-09-03] MEDS: IPRATROPIUM-ALBUTEROL 3 ML NEB INHALATION SCH ×4 (07:40→20:37)
[2020-09-03] MEDS: BUDESONIDE 0.5 MG/2 ML NEBU INHALATION SCH ×2 (07:40→20:37)
[2020-09-03] MEDS: LACTULOSE 20 GM/30 ML CUP PO SCH ×2 (07:50→20:11)
[2020-09-03] MEDS: HYDROcodone/APAP 5-325MG 1 EACH TAB PO PRN (07:51)
[2020-09-03] MEDS: allopurinoL 100 MG TAB PO SCH (07:52)
[2020-09-03] MEDS: SERTRALINE 100 MG TAB PO SCH (07:53)
[2020-09-03] MEDS: HEPARIN SODIUM,PORCINE/PF 5,000 UNIT/0.5 ML SYRINGE SQ SCH ×2 (07:53→20:11)
[2020-09-03] MEDS: ERTAPENEM 0.5 GM in SODIUM CHLORIDE 0.9% 50 ML IVPB SCH (08:47)
[2020-09-03] MEDS: SIMETHICONE 80 MG CHEWABLE PO SCH ×3 (08:51→17:18)
[2020-09-03] MEDS: METOPROLOL TARTRATE 12.5 MG TAB PO SCH ×2 (08:51→20:17)
[2020-09-03] MEDS: PANTOPRAZOLE 40 MG TABLET PO SCH (08:52)
[2020-09-03] MEDS: CARBIDOPA-LEVODOPA 25-100 MG 1 EACH TAB PO SCH ×2 (08:52→12:17)
[2020-09-03] MEDS: levETIRAcetam 500 MG TAB PO SCH ×2 (08:52→20:17)
--- NOTE | 2020-09-03 11:27 | P.PN ---
Subjective Patient is seen in follow-up for acute kidney injury. Renal function stable. Nonoliguric. Now on BiPAP. Oral intake poor. Hemodynamically stable. Vital signs are stable. General: The patient appeared well nourished and normally developed. HEENT: On BiPAP. LUNGS: Breath sounds decreased. HEART: Rate and Rhythm are regular. ABDOMEN: Soft, no distention. EXTREMITITES: No edema. Objective - Vital Signs Vital signs: Vital Signs Temp 97.7 F 09/03/20 08:11 Pulse 68 09/03/20 08:18 Resp 17 09/03/20 08:18 BP 158/87 09/03/20 08:11 Pulse Ox 96 09/03/20 08:11 Intake & Output 09/02/20 09/03/20 09/03/20 18:59 06:59 18:59 Intake Total 150 Output Total 1400 2000 500 Balance -1400 -1850 -500 Weight 120.202 kg Intake: Oral 150 Output: Urine 800 2000 250 Uretheral (Arroyo) 1000 Stool 600 Urine/Stool Mix 250 Other: Voiding Method Indwelling Catheter Indwelling Catheter Indwelling Catheter - Labs CBC & Chem 7: 09/02/20 05:32 09/02/20 05:32 Labs: Abnormal Lab Results - Last 24 Hours (Table) 09/02/20 09/02/20 09/02/20 Range/Units 13:38 17:25 20:10 ABG pH 7.16 L* (7.35-7.45) ABG pCO2 69 H (35-45) mmHg ABG pO2 114 H (83-108) mmHg ABG Total CO2 27 H (19-24) mmol/L ABG O2 Saturation 97.6 H (94-97) % POC Glucose (mg/dL) 104 H 146 H (75-99) mg/dL 09/03/20 Range/Units 07:30 ABG pH (7.35-7.45) ABG pCO2 (35-45) mmHg ABG pO2 (83-108) mmHg ABG Total CO2 (19-24) mmol/L ABG O2 Saturation (94-97) % POC Glucose (mg/dL) 110 H (75-99) mg/dL Microbiology - Last 24 Hours (Table) 08/31/20 05:50 Blood Culture - Preliminary Blood No Growth after 72 hours 08/29/20 22:20 Blood Culture Gram Stain - Final Blood Blood Culture - Final Proteus mirabilis Assessment and Plan Plan: Assessment: 1. Acute kidney injury secondary to ATN from sepsis and obstructive uropathy. Creatinine peaked at 1.86 this admission and stable at 1.8 as of yesterday. Creatinine in December 2019 was 0.8. 2. Hydronephrosis and nephrolithiasis status post bilateral ureteral stent placement on August 30. Urology following. 3. Severe sepsis secondary to Proteus UTI and bacteremia. On IV antibiotics. 4. Volume overload. Effusions noted on chest x-ray. Status post IV Lasix yesterday. 5. Acute on chronic diastolic CHF and moderate to severe tricuspid regurgit ation and moderate pulmonary hypertension. 6. Metabolic acidosis secondary to acute kidney injury. Unable to tolerate oral bicarbonate. Given 2 A of bicarb IV push and now maintained on bicarb drip per pulmonology. Plan: Avoid nephrotoxins. Continue to monitor renal function and urine output. Wean FiO2. Follow-up morning labs. If acidosis improved, Hep-Lock IV fluids.
[2020-09-03 11:51] LABS: Glucose,Whole Blood 105 mg/dL (75-99)
[2020-09-03 14:05] LABS: African American GFR (CKD) 47.7 (60.0-200.0); Anion Gap 10.8 mmol/L (4.00-12.00); BUN/Creat Ratio 46.67 Ratio (12.00-20.00); Calcium 8.9 mg/dL (8.7-10.3); Carbon Dioxide 26.2 mmol/L (21.6-31.8); Magnesium 1.7 mg/dL (1.5-2.4); Non-African American GFR(CKD) 41.2 (60.0-200.0); Potassium 3.9 mmol/L (3.5-5.5)
[2020-09-03 17:00] LABS: Glucose,Whole Blood 148 mg/dL (75-99)
[2020-09-03 17:51] LABS: ABG PCO2 66 mmHg (35-45); ABG PH 7.35 (7.35-7.45); ABG PO2 93 mmHg (83-108); Allen Test Performed? Yes
[2020-09-03 17:52] LABS: ABG Base Excess 10.5 mmol/L; ABG HCO3 36 mmol/L (21-25); ABG Oxygen Saturation 97.3 % (94-97); ABG TCO2 38 mmol/L (19-24)
--- NOTE | 2020-09-03 18:04 | P.PN ---
Subjective Progress Note Date: 09/03/20 85-year-old female was transferred here from snf after she started complaining of pain in the right flank area moderate severity sharp and crampy in nature found to have bilateral obstructing ureteral stones from the CT urine analysis significantly abnormal consistent with infection and purulent drainage patient presently has a Arroyo catheter, patient underwent cystoscopy and ureteral stent placement. Patient was febrile with elevated white blood cell count chest x-ray mostly is consistent with pulmonary edema on the BNP is only minimally elevated and patient has lactic acidosis because of which I'm continuing antibiotics patient had lactic as well as on 3.2. Covid 19 was negative patient had ESBL Proteus in the urine in the past because of which patient's levofloxacin is being switched to meropenem and infectious disease will evaluated the patient patient also has a stage II sacral decubitus ulcer for which wound care is being consulted Objective - Vital Signs Vital signs: Vital Signs Temp 97.7 F 09/03/20 08:11 Pulse 68 09/03/20 08:18 Resp 17 09/03/20 08:18 BP 158/87 09/03/20 08:11 Pulse Ox 96 09/03/20 08:11 Intake & Output 09/02/20 09/03/20 09/03/20 18:59 06:59 18:59 Intake Total 150 Output Total 1400 2000 500 Balance -1400 -1850 -500 Weight 120.202 kg Intake: Oral 150 Output: Urine 800 2000 250 Uretheral (Arroyo) 1000 Stool 600 Urine/Stool Mix 250 Other: Voiding Method Indwelling Catheter Indwelling Catheter Indwelling Catheter - Exam GENERAL: The patient is alert and oriented x1-2, not in any acute distress. Lethargic although more awake today. Has generalized weakness, parkinsonian tremor HEENT: Pupils are round and equally reacting to light. EOMI. No scleral icterus. No conjunctival pallor. Normocephalic, atraumatic. No pharyngeal erythema. No thyromegaly. CARDIOVASCULAR: S1 and S2 present. No murmurs, rubs, or gallops. PULMONARY: Diminished breath sounds bilaterally with some scattered crackles noted. ABDOMEN: Soft, nontender, nondistended, normoactive bowel sounds. No palpable organomegaly. MUSCULOSKELETAL: No joint swelling or deformity. EXTREMITIES: No cyanosis, clubbing, or pedal edema. NEUROLOGICAL: Gross neurological examination did not reveal any focal deficits. Diffusely weak SKIN: No rashes. - Labs CBC & Chem 7: 09/02/20 05:32 09/03/20 06:30 Labs: Abnormal Lab Results - Last 24 Hours (Table) 09/02/20 09/02/20 09/02/20 Range/Units 13:38 17:25 20:10 ABG pH 7.16 L* (7.35-7.45) ABG pCO2 69 H (35-45) mmHg ABG pO2 114 H (83-108) mmHg ABG Total CO2 27 H (19-24) mmol/L ABG O2 Saturation 97.6 H (94-97) % POC Glucose (mg/dL) 104 H 146 H (75-99) mg/dL 09/03/20 Range/Units 07:30 ABG pH (7.35-7.45) ABG pCO2 (35-45) mmHg ABG pO2 (83-108) mmHg ABG Total CO2 (19-24) mmol/L ABG O2 Saturation (94-97) % POC Glucose (mg/dL) 110 H (75-99) mg/dL Microbiology - Last 24 Hours (Table) 08/31/20 05:50 Blood Culture - Preliminary Blood No Growth after 72 hours 08/29/20 22:20 Blood Culture Gram Stain - Final Blood Blood Culture - Final Proteus mirabilis Assessment and Plan Assessment: -Lactic acidosis: Secondary to severe sepsis -Acute hypercapnic respiratory failure and currently requiring BiPAP -Right lower lobe pneumonia as noted on x-ray -Acute renal failure secondary to sepsis probably acute tubular necrosis and prerenal azotemia, improving -Altered mental status, multifactorial secondary to metabolic acidosis, acute hypercapnic respiratory failure, infection, sepsis, underlying dementia -Sepsis secondary to urinary tract infection, acute pyelonephritis: Patient has bilateral ureteral calculi patient has had a ureteral stent placement. IV antibiotics transitioned Invanz. Infectious disease is following and culture showing Proteus mirabilis -Acute on chronic diastolic congestive heart failure, acute exacerbation with effusions noted on x-ray, echo shows LV systolic function is low to normal with an EF between 50 and 55% with some mild mitral regurgitation and moderate to sev ere tricuspid regurgitation along with moderate pulmonary hypertension present -Bilateral hydronephrosis, pyelonephritis -Stage II sacral decubitus ulcer wound care and infectious disease following -History of Parkinson's: Patient was resumed on her home medications -CVA in the past -Gastroesophageal reflux disease -Hypertension -seizure disorder -Hypothyroidism -DVT prophylaxis with Lovenox Plan: For above-mentioned chronic medical problems patient will be resumed on appropriate home medications. IV antibiotics transitioned to Invanz cultures finalizing showing Proteus mirabilis. His recent blood cultures have been negative. Infectious disease along with urology and nephrology following. Pulmonary consulted for the possibility of pneumonia with volume overload and acute respiratory failure. Patient currently maintained on venti mask and being transitioned to BiPAP. No CODE STATUS was changed. Prognosis is guarded. Will repeat a.m. labs and continue to monitor closely. Social work is following as patient is an ECF return once stabilized and discharged.
--- NOTE | 2020-09-03 18:56 | P.PN ---
Subjective Progress Note Date: 09/03/20 85-year-old female patient, hospitalized for complications of gram-negative UTI and sepsis. The patient was having right flank pain and CAT scan of the abdomen showed moderate right-sided hydronephrosis and the patient underwent cystoscopy and bilateral ureteral stent insertion on 08/30/2020. I was asked to evaluate this patient as the patient was having some altered mentation and respiratory acidosis. Upon further evaluation, I started the patient has been infected with Proteus mirabilis and this was of a urinary source and the blood culture was also positive. She is currently on IV Invanz. Hemodynamically stable and she was on 2 L. The series of chest x-rays were done on this patient and the patient developed some right lower lobe consolidation/effusion and during the course of her treatment the patient also developed an acute kidney injury. Her serum creatinine came up to 1.8 from a baseline of 1.1. The blood gases from this morning showed a pH of 7.16 with a pCO2 of 69 and pO2 of 114 and this was on FiO2 of 36%. Serum bicarb is 19. Anion gap is 11. Lactic acid level is bree n to 0.9. Her COVID-19 testing was negative. The patient is morbidly obese. She carries a BMI of 46.5. She has very small lung volumes and a chest x-ray and obviously there is a component of restrictive lung disease and chronic hypercapnic respiratory failure as the patient has some degree of metabolic alkalosis with a serum bicarb of 29 at time of admission. Assessed his blood gases consistent with acute on top of chronic hypercapnic respiratory failure/acidosis contributing factors could be metabolic acidosis and chronic respiratory insufficiency with further complications related to the right lower lobe pneumonia/effusion. She is a [facility] resident. She is a poor historian. . At the bedside and all of this information was discussed with her. On today's evaluation of 09/03/2020, I'm seeing the patient for a follow-up. The patient has remained in the BiPAP all day yesterday and the patient is much more awake and alert. Of course she is a poor historian. Nevertheless, the G and his somnolence is improved. She has been on a bicarb infusion. He'll functions improved and the patient's creatinine is down to 1.0 bicarb is up to 26. Note that the patient has chronic metabolic alkalosis. If her blood gases was done after the patient was taken off the BiPAP and she was placed on a Ventimask. Her pH is 7.35 with a pCO2 of 66 and pO2 of 93 and she seemed to be quite comfortable. As such, I discontinued BiPAP for a while. No other issues for now. She is still on antibiotics to no fever or chills. She is being treated for septic shock. Objective - Vital Signs Vital signs: Vital Signs Temp 98.9 F 09/03/20 12:57 Pulse 60 09/03/20 15:45 Resp 16 09/03/20 15:45 BP 123/82 09/03/20 12:57 Pulse Ox 98 09/03/20 15:31 Intake & Output 09/02/20 09/03/20 09/03/20 18:59 06:59 18:59 Intake Total 150 850 Output Total 1400 2000 500 Balance -1400 -1850 350 Weight 120.202 kg Intake: Intake, IV Titration 850 Amount Dextrose 5% in Water 1, 800 000 ml @ 100 mls/hr IV . [id number] JACINTO with Sodium Bicarb (1 Meq/ml) 150 ml Rx#:[id number] Ertapenem 0.5 gm In 50 Sodium Chloride 0.9% 50 ml @ 100 mls/hr IVPB DAILY JACINTO Rx#:[id number] Oral 150 Output: Urine 800 2000 250 Uretheral (Arroyo) 1000 Stool 600 Urine/Stool Mix 250 Other: Voiding Method Indwelling Catheter Indwelling Catheter Indwelling Catheter # Bowel Movements 3 - Exam Obese, comfortable, not having any acute respiratory distress, BMI 46.9, much more alert and awake Head exam was generally normal. There was no scleral icterus or corneal arcus. Mucous membranes were moist. Neck was supple and without jugular venous distension, thyromegaly, or carotid bruits. Carotids were easily palpable bilaterally. There was no adenopathy. Mal lampati class IV Lungs diminished specially in the right lung base along with some dullness to percussion. No wheezes. Cardiac exam revealed the PMI to be normally situated and sized. The rhythm was regular and no extrasystoles were noted during several minutes of auscultation. The first and second heart sounds were normal and physiologic splitting of the second heart sound was noted. There were no murmurs, rubs, clicks, or gallops. Abdomen is obese and orders cannot be accurately palpated. No direct tenderness. No rebound tenderness. No guarding. Examination of the extremities revealed easily palpable radial, femoral and pedal pulses. There was no cyanosis, clubbing or edema. Examination of the skin revealed no evidence of significant rashes, suspicious appearing nevi or other concerning lesions. Neurologically, the patient underlying dementia. awake and alert and pleasantly confused. Moving all 4 extremities. - Labs CBC & Chem 7: 09/02/20 05:32 09/03/20 06:30 Labs: Abnormal Lab Results - Last 24 Hours (Table) 09/02/20 09/03/20 09/03/20 Range/Units 20:10 06:30 07:30 ABG pCO2 (35-45) mmHg ABG HCO3 (21-25) mmol/L ABG Total CO2 (19-24) mmol/L ABG O2 Saturation (94-97) % BUN 56.0 H (9.0-27.0) mg/dL Est GFR (CKD-EPI)AfAm 47.7 L (60.0-200.0) Est GFR (CKD-EPI)NonAf 41.2 L (60.0-200.0) BUN/Creatinine Ratio 46.67 H (12.00-20.00) Ratio Glucose 120 H (70-110) mg/dL POC Glucose (mg/dL) 146 H 110 H (75-99) mg/dL 09/03/20 09/03/20 09/03/20 Range/Units 11:50 16:57 17:43 ABG pCO2 66 H (35-45) mmHg ABG HCO3 36 H (21-25) mmol/L ABG Total CO2 38 H (19-24) mmol/L ABG O2 Saturation 97.3 H (94-97) % BUN (9.0-27.0) mg/dL Est GFR (CKD-EPI)AfAm (60.0-200.0) Est GFR (CKD-EPI)NonAf (60.0-200.0) BUN/Creatinine Ratio (12.00-20.00) Ratio Glucose (70-110) mg/dL POC Glucose (mg/dL) 105 H 148 H (75-99) mg/dL Microbiology - Last 24 Hours (Table) 08/31/20 05:50 Blood Culture - Preliminary Blood No Growth after 72 hours Assessment and Plan Plan: 1 altered mental status, multifactorial.improved. The patient has metabolic encephalopathy in addition to that the patient has acute on chronic hypercapnic respiratory failure with respiratory metabolic acidosis or contributing to the altered mentation. Noted the patient has some baseline dementia. The patient was treated with a bicarb infusion. Acute kidney injury is improved. Metabolic acidosis improved. Acid base status is also improved and the patient is doing better and she was taken off the BiPAP 2 acute kidney injury with development of an anion gap metabolic acidosis.the renal function is improving and the patient continues to be on a bicarb drip. 3 metabolic acidosis of a non-anion gap type in addition to acute on top of chronic hypercapnic respiratory failure. The patient is morbidly obese and probably she has some restrictive lung disease and unable to wash out the carbon dioxide and the patient could've encountered the situation of acute on top of chronic hypercapnic respiratory failure especially with the setting of metabolic acidosis and right lower lobe pneumonia. The acid base status is improved and please refer to the most recent blood gas. 4 right lower lobe pneumonia/infiltration/consolidation 5 septic shock secondary to Proteus UTI and septicemia/bacteremia 6 right-sided hydronephrosis [id number] stent insertion 7 morbid obesity with a BMI of 46.9 8 previous history of CVA 9 dementia 10 [facility] resident 11 memory impairment secondary to dementia 12 hypertension 13 14 hypothyroidism 15 osteoarthritis Plan Continue IV Invanz regarding Proteus mirabilis septicemia Monitor renal function, creatinine is improving continue the bicarb infusion at 75 mL an hour of 150 mEq of sodium bicarbonate mixed in D5 water May need to use BiPAP for the next 24 hours and we'll utilize a noninvasive depression of 10/5,, continue the BiPAP overnight and for now the patient is an 40% Ventimask. The patient can be gradually weaned off the FiO2. We will continue IV Invanz covering UTI and possibly right lower lobe pneumonia Establish CODE STATUS. Advanced directives have been established apparently and would like to have all the paperwork forwarded to us to document and input in the medical record the patient's CODE STATUS and advanced directives Repeat chest x-ray in the morning We'll follow
[2020-09-03] MEDS: ASPIRIN 81 MG PO SCH (20:10)
[2020-09-03] MEDS: PRIMIDONE 25 MG TAB PO SCH (20:17)
[2020-09-03 20:49] LABS: Glucose,Whole Blood 123 mg/dL (75-99)
--- NOTE | 2020-09-03 20:56 | PN ---
PROGRESS NOTE DATE OF SERVICE: 09/03/2020 REASON FOR FOLLOWUP: ESBL Proteus UTI and bacteremia. INTERVAL HISTORY: The patient is afebrile. The patient did have slight worsening of respiratory status requiring a BiPAP. Slightly sleepy, lethargic. No vomiting or diarrhea or any other changes reported by the nursing staff. PHYSICAL EXAMINATION: Blood pressure 123/82, pulse of 72, temperature 98.9. She is 99% on BiPAP. General description is a middle-aged female lying in bed in no distress. RESPIRATORY SYSTEM: Unlabored breathing. Clear to auscultation anteriorly. HEART: S1, S2. Regular rate and rhythm. ABDOMEN: Soft. No tenderness. LABS: BUN of 56, creatinine 1.2. DIAGNOSTIC IMPRESSION AND PLAN: Patient with ESBL Proteus urinary tract infection bacteremia. Repeat blood culture has been negative. The patient is currently on ertapenem; to continue to finish her total 2-week course of therapy. Monitor clinical course closely. MMMARIPOSAL / IJN: [id number] /
[2020-09-04] MEDS: MELATONIN 3 MG TABLET PO PRN (00:40)
[2020-09-04] MEDS: HYDROcodone/APAP 5-325MG 1 EACH TAB PO PRN ×2 (03:29→14:28)
[2020-09-04] MEDS: DEXTROSE 5% IN WATER 1,000 ML with SODIUM BICARB (1 MEQ/ML) 150 ML IV SCH ×2 (03:30→15:07)
[2020-09-04] MEDS: traMADol 50 MG TAB PO SCH ×4 (06:15→20:12)
[2020-09-04] MEDS: ACETAMINOPHEN TAB 325 MG TAB PO SCH ×3 (06:17→20:09)
[2020-09-04] MEDS: LEVOTHYROXINE 50 MCG TAB PO SCH (06:18)
[2020-09-04 07:04] LABS: Glucose,Whole Blood 109 mg/dL (75-99)
[2020-09-04] MEDS: IPRATROPIUM-ALBUTEROL 3 ML NEB INHALATION SCH ×4 (08:16→20:34)
[2020-09-04] MEDS: BUDESONIDE 0.5 MG/2 ML NEBU INHALATION SCH ×2 (08:16→20:34)
[2020-09-04] MEDS: allopurinoL 100 MG TAB PO SCH (08:43)
[2020-09-04] MEDS: BACLOFEN 10 MG TAB PO PRN (08:44)
[2020-09-04] MEDS: LACTULOSE 20 GM/30 ML CUP PO SCH ×2 (08:45→20:21)
[2020-09-04] MEDS: HEPARIN SODIUM,PORCINE/PF 5,000 UNIT/0.5 ML SYRINGE SQ SCH ×2 (08:45→20:12)
[2020-09-04] MEDS: PANTOPRAZOLE 40 MG TABLET PO SCH (08:45)
[2020-09-04] MEDS: SIMETHICONE 80 MG CHEWABLE PO SCH ×3 (08:46→16:20)
[2020-09-04] MEDS: SERTRALINE 100 MG TAB PO SCH (08:46)
[2020-09-04] MEDS: CARBIDOPA-LEVODOPA 25-100 MG 1 EACH TAB PO SCH ×2 (08:46→12:08)
[2020-09-04] MEDS: levETIRAcetam 500 MG TAB PO SCH ×2 (08:47→20:11)
[2020-09-04] MEDS: METOPROLOL TARTRATE 12.5 MG TAB PO SCH ×2 (08:49→20:11)
[2020-09-04] MEDS: ERTAPENEM 0.5 GM in SODIUM CHLORIDE 0.9% 50 ML IVPB SCH (08:59)
[2020-09-04 09:20] LABS: African American GFR (CKD) 96.3 (60.0-200.0); Anion Gap 4.2 mmol/L (4.00-12.00); BUN/Creat Ratio 48.33 Ratio (12.00-20.00); Calcium 8.6 mg/dL (8.7-10.3); Carbon Dioxide 36.8 mmol/L (21.6-31.8); Magnesium 1.5 mg/dL (1.5-2.4); Non-African American GFR(CKD) 83.1 (60.0-200.0); Potassium 3.5 mmol/L (3.5-5.5)
[2020-09-04 12:00] LABS: Glucose,Whole Blood 120 mg/dL (75-99)
--- NOTE | 2020-09-04 15:47 | P.PN ---
Progress Note - Text Progress Note Date: 09/04/20 S/P bilateral ureteral stent placement by Dr Zavala for septic stones on 08/29. Patient mental status improved today, she is more alert and responsive., Blood culture growing Proteus on Ertapenam. WBC down to 12.5. Having adequate urine output -Will need total of 14 days of abx from urology standpoint -Will eventually need bilateral ureteroscopy to address her ureteral stone once she completes her antibiotics, this will be arranged for her as an outpatient. Please contact Urology once she is ready to be discharged to arrange for outpatient bilateral ureteroscopy
--- NOTE | 2020-09-04 16:00 | P.PN ---
Subjective Progress Note Date: 09/04/20 85-year-old female patient, hospitalized for complications of gram-negative UTI and sepsis. The patient was having right flank pain and CAT scan of the abdomen showed moderate right-sided hydronephrosis and the patient underwent cystoscopy and bilateral ureteral stent insertion on 08/30/2020. I was asked to evaluate this patient as the patient was having some altered mentation and respiratory acidosis. Upon further evaluation, I started the patient has been infected with Proteus mirabilis and this was of a urinary source and the blood culture was also positive. She is currently on IV Invanz. Hemodynamically stable and she was on 2 L. The series of chest x-rays were done on this patient and the patient developed some right lower lobe consolidation/effusion and during the course of her treatment the patient also developed an acute kidney injury. Her serum creatinine came up to 1.8 from a baseline of 1.1. The blood gases from this morning showed a pH of 7.16 with a pCO2 of 69 and pO2 of 114 and this was on FiO2 of 36%. Serum bicarb is 19. Anion gap is 11. Lactic acid level is bree n to 0.9. Her COVID-19 testing was negative. The patient is morbidly obese. She carries a BMI of 46.5. She has very small lung volumes and a chest x-ray and obviously there is a component of restrictive lung disease and chronic hypercapnic respiratory failure as the patient has some degree of metabolic alkalosis with a serum bicarb of 29 at time of admission. Assessed his blood gases consistent with acute on top of chronic hypercapnic respiratory failure/acidosis contributing factors could be metabolic acidosis and chronic respiratory insufficiency with further complications related to the right lower lobe pneumonia/effusion. She is a detention resident. She is a poor historian. . At the bedside and all of this information was discussed with her. On today's evaluation of 09/03/2020, I'm seeing the patient for a follow-up. The patient has remained in the BiPAP all day yesterday and the patient is much more awake and alert. Of course she is a poor historian. Nevertheless, the G and his somnolence is improved. She has been on a bicarb infusion. He'll functions improved and the patient's creatinine is down to 1.0 bicarb is up to 26. Note that the patient has chronic metabolic alkalosis. If her blood gases was done after the patient was taken off the BiPAP and she was placed on a Ventimask. Her pH is 7.35 with a pCO2 of 66 and pO2 of 93 and she seemed to be quite comfortable. As such, I discontinued BiPAP for a while. No other issues for now. She is still on antibiotics to no fever or chills. She is being treated for septic shock. On today's evaluation of 09/04/2020, the patient remains on 40% Ventimask. Doing extremely well. Serum bicarb is up to 34. She remains on a bicarb infusion. No new complaints. She is swallowing. She wants more fluids. No nausea. No emesis. No fever or chills. She still on antibiotics. The patient is recovering from her septic shock. Electrolytes were noted. Serum bicarb is up to 36. Sodium is at 142. Glucose is 120. She has dementia and her mental status in general is impaired as the patient has cognitive impairments. Nevertheless, the neurologic exam is nonfocal. No cough. No sputum production. She has not used the BiPAP overnight. Objective - Vital Signs Vital signs: Vital Signs Temp 98.8 F 09/04/20 11:55 Pulse 69 09/04/20 11:55 Resp 22 09/04/20 11:55 BP 155/85 09/04/20 11:55 Pulse Ox 97 09/04/20 15:08 Intake & Output 09/03/20 09/04/20 09/04/20 18:59 06:59 18:59 Intake Total 850 Output Total 925 447 9836 Balance 350 -150 -1350 Intake: Intake, IV Titration 850 Amount Dextrose 5% in Water 1, 800 000 ml @ 100 mls/hr IV . [id number] JACINTO with Sodium Bicarb (1 Meq/ml) 150 ml Rx#:[id number] Ertapenem 0.5 gm In 50 Sodium Chloride 0.9% 50 ml @ 100 mls/hr IVPB DAILY JACINTO Rx#:[id number] Output: Urine 250 550 Stool 150 800 Urine/Stool Mix 250 Other: Voiding Method Indwelling Catheter Indwelling Catheter # Bowel Movements 3 - Exam Obese, comfortable, not having any acute respiratory distress, BMI 46.9, much more alert and awake, currently on a 40% Ventimask Head exam was generally normal. There was no scleral icterus or corneal arcus. Mucous membranes were moist. Neck was supple and without jugular venous distension, thyromegaly, or carotid bruits. Carotids were easily palpable bilaterally. There was no adenopathy. Mallampati class IV Lungs diminished specially in the right lung base along with some dullness to percussion. No wheezes. Cardiac exam revealed the PMI to be normally situated and sized. The rhythm was regular and no extrasystoles were noted during several minutes of auscultation. The first and second heart sounds were normal and physiologic splitting of the second heart sound was noted. There were no murmurs, rubs, clicks, or gallops. Abdomen is obese and orders cannot be accurately palpated. No direct tenderness. No rebound tenderness. No guarding. Examination of the extremities revealed easily palpable radial, femoral and pedal pulses. There was no cyanosis, clubbing or edema. Examination of the skin revealed no evidence of significant rashes, suspicious appearing nevi or other concerning lesions. Neurologically, the patient underlying dementia. awake and alert and pleasantly confused. Moving all 4 extremities. - Labs CBC & Chem 7: 09/02/20 05:32 09/04/20 05:40 Labs: Abnormal Lab Results - Last 24 Hours (Table) 09/03/20 09/03/20 09/03/20 Range/Units 16:57 17:43 20:48 ABG pCO2 66 H (35-45) mmHg ABG HCO3 36 H (21-25) mmol/L ABG Total CO2 38 H (19-24) mmol/L ABG O2 Saturation 97.3 H (94-97) % Carbon Dioxide (21.6-31.8) mmol/L BUN (9.0-27.0) mg/dL BUN/Creatinine Ratio (12.00-20.00) Ratio POC Glucose (mg/dL) 148 H 123 H (75-99) mg/dL Calcium (8.7-10.3) mg/dL 09/04/20 09/04/20 09/04/20 Range/Units 05:40 06:57 11:57 ABG pCO2 (35-45) mmHg ABG HCO3 (21-25) mmol/L ABG Total CO2 (19-24) mmol/L ABG O2 Saturation (94-97) % Carbon Dioxide 36.8 H (21.6-31.8) mmol/L BUN 29.0 H (9.0-27.0) mg/dL BUN/Creatinine Ratio 48.33 H (12.00-20.00) Ratio POC Glucose (mg/dL) 109 H 120 H (75-99) mg/dL Calcium 8.6 L (8.7-10.3) mg/dL Microbiology - Last 24 Hours (Table) 08/31/20 05:50 Blood Culture - Preliminary Blood No Growth after 96 hours Assessment and Plan Plan: 1 altered mental status, multifactorial.improved. This was related to a combination of hypercapnic encephalopathy and metabolic encephalopathy, both improved. 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 Please refer to the most recent blood gases and there was improvement and acid base status 4 right lower lobe pneumonia/infiltration/consolidation 5 septic shock secondary to Proteus UTI and septicemia/bacteremia 6 right-sided hydronephrosis [id number] stent insertion 7 morbid obesity with a BMI of 46.9 8 previous history of CVA 9 dementia 10 detention resident 11 memory impairment secondary to dementia 12 hypertension 13 14 hypothyroidism 15 osteoarthritis Plan Continue IV Invanz regarding Proteus mirabilis septicemia kidney function is normalized Serum bicarb is up to 36 Discontinue bicarb infusion Wean FiO2 to nasal cannula Consider using the BiPAP overnight Continue IV Invanz Establish CODE STATUS Pulmonary critical care services will sign off
--- NOTE | 2020-09-04 17:00 | P.PN ---
Subjective Progress Note Date: 09/04/20 Principal diagnosis: Altered mental status, multifactorial.improved. This was related to a c ombination of hypercapnic encephalopathy and metabolic encephalopathy, both improved. Acute kidney injury with development of an anion gap metabolic acidosis, recovered Metabolic acidosis of a non-anion gap type in addition to acute on top of chronic hypercapnic respiratory failure. Please refer to the most recent blood gases and there was improvement and acid base status Right lower lobe pneumonia/infiltration/consolidation Septic shock secondary to Proteus UTI and septicemia/bacteremia Right-sided hydronephrosis [id number] stent insertion 85-year-old female was transferred here from snf after she started complaining of pain in the right flank area moderate severity sharp and crampy in nature found to have bilateral obstructing ureteral stones from the CT urine analysis significantly abnormal consistent with infection and purulent drainage patient presently has a Arroyo catheter, patient underwent cystoscopy and ureteral stent placement. Patient was febrile with elevated white blood cell count chest x-ray mostly is consistent with pulmonary edema on the BNP is only minimally elevated and patient has lactic acidosis because of which I'm continuing antibiotics patient had lactic as well as on 3.2. Covid 19 was negative patient had ESBL Proteus in the urine in the past because of which patient's levofloxacin is being switched to meropenem and infectious disease will evaluated the patient patient also has a stage II sacral decubitus ulcer for which wound care is being consulted Objective - Vital Signs Vital signs: Vital Signs Temp 98.0 F 09/04/20 05:00 Pulse 72 09/04/20 08:29 Resp 16 09/04/20 05:00 BP 128/67 09/04/20 05:00 Pulse Ox 94 L 09/04/20 05:00 Intake & Output 09/03/20 09/04/20 09/04/20 18:59 06:59 18:59 Intake Total 850 Output Total 500 150 Balance 350 -150 Intake: Intake, IV Titration 850 Amount Dextrose 5% in Water 1, 800 000 ml @ 100 mls/hr IV . [id number] JACINTO with Sodium Bicarb (1 Meq/ml) 150 ml Rx#:[id number] Ertapenem 0.5 gm In 50 Sodium Chloride 0.9% 50 ml @ 100 mls/hr IVPB DAILY JACINTO Rx#:[id number] Output: Urine 250 Stool 150 Urine/Stool Mix 250 Other: Voiding Method Indwelling Catheter # Bowel Movements 3 - Exam GENERAL: The patient is alert and oriented x1-2, not in any acute distress. Lethargic although more awake today. Has generalized weakness, parkinsonian tremor HEENT: Pupils are round and equally reacting to light. EOMI. No scleral icterus. No conjunctival pallor. Normocephalic, atraumatic. No pharyngeal erythema. No thyromegaly. CARDIOVASCULAR: S1 and S2 present. No murmurs, rubs, or gallops. PULMONARY: Diminished breath sounds bilaterally with some scattered crackles noted. ABDOMEN: Soft, nontender, nondistended, normoactive bowel sounds. No palpable organomegaly. MUSCULOSKELETAL: No joint swelling or deformity. EXTREMITIES: No cyanosis, clubbing, or pedal edema. NEUROLOGICAL: Gross neurological examination did not reveal any focal deficits. Diffusely weak SKIN: No rashes. - Labs CBC & Chem 7: 09/02/20 05:32 09/04/20 05:40 Labs: Abnormal Lab Results - Last 24 Hours (Table) 09/03/20 09/03/20 09/03/20 Range/Units 06:30 11:50 16:57 ABG pCO2 (35-45) mmHg ABG HCO3 (21-25) mmol/L ABG Total CO2 (19-24) mmol/L ABG O2 Saturation (94-97) % Carbon Dioxide (21.6-31.8) mmol/L BUN 56.0 H (9.0-27.0) mg/dL Est GFR (CKD-EPI)AfAm 47.7 L (60.0-200.0) Est GFR (CKD-EPI)NonAf 41.2 L (60.0-200.0) BUN/Creatinine Ratio 46.67 H (12.00-20.00) Ratio Glucose 120 H (70-110) mg/dL POC Glucose (mg/dL) 105 H 148 H (75-99) mg/dL Calcium (8.7-10.3) mg/dL 09/03/20 09/03/20 09/04/20 Range/Units 17:43 20:48 05:40 ABG pCO2 66 H (35-45) mmHg ABG HCO3 36 H (21-25) mmol/L ABG Total CO2 38 H (19-24) mmol/L ABG O2 Saturation 97.3 H (94-97) % Carbon Dioxide 36.8 H (21.6-31.8) mmol/L BUN 29.0 H (9.0-27.0) mg/dL Est GFR (CKD-EPI)AfAm (60.0-200.0) Est GFR (CKD-EPI)NonAf (60.0-200.0) BUN/Creatinine Ratio 48.33 H (12.00-20.00) Ratio Glucose (70-110) mg/dL POC Glucose (mg/dL) 123 H (75-99) mg/dL Calcium 8.6 L (8.7-10.3) mg/dL 09/04/20 Range/Units 06:57 ABG pCO2 (35-45) mmHg ABG HCO3 (21-25) mmol/L ABG Total CO2 (19-24) mmol/L ABG O2 Saturation (94-97) % Carbon Dioxide (21.6-31.8) mmol/L BUN (9.0-27.0) mg/dL Est GFR (CKD-EPI)AfAm (60.0-200.0) Est GFR (CKD-EPI)NonAf (60.0-200.0) BUN/Creatinine Ratio (12.00-20.00) Ratio Glucose (70-110) mg/dL POC Glucose (mg/dL) 109 H (75-99) mg/dL Calcium (8.7-10.3) mg/dL Microbiology - Last 24 Hours (Table) 08/31/20 05:50 Blood Culture - Preliminary Blood No Growth after 96 hours Assessment and Plan Assessment: -Lactic acidosis: Secondary to severe sepsis -Acute hypercapnic respiratory failure and currently requiring BiPAP -Right lower lobe pneumonia as noted on x-ray -Acute renal failure secondary to sepsis probably acute tubular necrosis and prerenal azotemia, improving -Altered mental status, multifactorial secondary to metabolic acidosis, acute hypercapnic respiratory failure, infection, sepsis, underlying dementia -Sepsis secondary to urinary tract infection, acute pyelonephritis: Patient has bilateral ureteral calculi patient has had a ureteral stent placement. IV antib iotics transitioned Invanz. Infectious disease is following and culture showing Proteus mirabilis -Acute on chronic diastolic congestive heart failure, acute exacerbation with effusions noted on x-ray, echo shows LV systolic function is low to normal with an EF between 50 and 55% with some mild mitral regurgitation and moderate to severe tricuspid regurgitation along with moderate pulmonary hypertension present -Bilateral hydronephrosis, pyelonephritis -Stage II sacral decubitus ulcer wound care and infectious disease following -History of Parkinson's: Patient was resumed on her home medications -CVA in the past -Gastroesophageal reflux disease -Hypertension -seizure disorder -Hypothyroidism -DVT prophylaxis with Lovenox Plan: For above-mentioned chronic medical problems patient will be resumed on appropriate home medications. IV antibiotics transitioned to Invanz cultures finalizing showing Proteus mirabilis. His recent blood cultures have been negative. Infectious disease along with urology and nephrology following. Pulmonary consulted for the possibility of pneumonia with volume overload and acute respiratory failure. Patient currently maintained on venti mask and being transitioned to BiPAP. No CODE STATUS was changed. Prognosis is guarded. Will repeat a.m. labs and continue to monitor closely. Social work is following as patient is an ECF return once stabilized and discharged.
[2020-09-04 17:25] LABS: Glucose,Whole Blood 121 mg/dL (75-99)
--- NOTE | 2020-09-04 17:33 | PN ---
PROGRESS NOTE Patient is seen for followup for acute kidney injury, metabolic acidosis, which has improved. Creatinine has improved to 0.6. It peaked at about 1.8 mg/dL. The patient has an indwelling Arroyo catheter. She has had good urine output. PHYSICAL EXAMINATION: On examination today, blood pressure was 115/85, heart rate 69 per minute. Patient is afebrile. She is maintained on nasal cannula. Examination of the heart S1, S2. Examination of the lungs, bilateral breath sounds are heard. Abdomen is soft, nontender. Examination of lower extremities shows no significant edema. 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 LAB: Show sodium 142, potassium 3.5, chloride 101, CO2 is 36.8, BUN 29, serum creatinine 0.6 mg/dL. ASSESSMENT: 1. Acute kidney injury associated with acute tubular necrosis or obstructive uropathy, currently improved. 2. Hydronephrosis, nephrolithiasis, status post bilateral ureteral stent placement on August 30, being followed by Urology. 3. Severe sepsis associated with Proteus urinary tract infection and bacteremia. 4. Volume overload, improved status post IV Lasix. 5. Metabolic acidosis, improved with IV bicarb. 6. Acute on chronic diastolic congestive heart failure with moderate to severe tricuspid regurgitation and moderate pulmonary hypertension. PLAN: Discontinue IV bicarb, encourage increased oral intake. MMODL / IJN: [id number] /
--- NOTE | 2020-09-04 19:01 | PN ---
PROGRESS NOTE DATE OF SERVICE: 09/04/2020 REASON FOR FOLLOWUP: ESBL Proteus UTI and bacteremia. INTERVAL HISTORY: The patient is currently afebrile. Patient is breathing comfortably. The patient denies having any chest pain or cough. No abdominal pain or diarrhea. PHYSICAL EXAMINATION: Blood pressure 155/85, pulse of 69, temperature 98.8. She is 92% on 4 L nasal cannula. General description is an elderly female lying in bed in no distress. Respiratory system: Unlabored breathing, clear to auscultation anteriorly. Heart S1, S2. Regular rate and rhythm. Abdomen soft, no tenderness. LABS: BUN of 29, creatinine 0.6. Blood culture repeat 08/31 so far negative. DIAGNOSTIC IMPRESSION AND PLAN: Patient with ESBL Proteus mirabilis urinary tract infection and bacteremia. Patient is covered with Ertapenem 1 g daily to continue thru midline and continue with antibiotics to finish a total 2 week course of therapy and close outpatient followup. MMODL / IJN: [id number] /
[2020-09-04] MEDS: ASPIRIN 81 MG PO SCH (20:11)
[2020-09-04] MEDS: PRIMIDONE 25 MG TAB PO SCH (20:11)
[2020-09-04 20:48] LABS: Glucose,Whole Blood 100 mg/dL (75-99)
[2020-09-05] MEDS: HYDROcodone/APAP 5-325MG 1 EACH TAB PO PRN ×3 (00:18→17:37)
[2020-09-05] MEDS: LEVOTHYROXINE 50 MCG TAB PO SCH (05:27)
[2020-09-05] MEDS: ACETAMINOPHEN TAB 325 MG TAB PO SCH ×3 (05:28→19:30)
[2020-09-05] MEDS: traMADol 50 MG TAB PO SCH ×4 (05:29→21:31)
[2020-09-05] MEDS: IPRATROPIUM-ALBUTEROL 3 ML NEB INHALATION SCH ×4 (07:00→20:06)
[2020-09-05] MEDS: BUDESONIDE 0.5 MG/2 ML NEBU INHALATION SCH ×2 (07:00→20:06)
[2020-09-05 07:10] LABS: Glucose,Whole Blood 93 mg/dL (75-99)
[2020-09-05] MEDS: PANTOPRAZOLE 40 MG TABLET PO SCH (09:45)
[2020-09-05] MEDS: allopurinoL 100 MG TAB PO SCH (09:45)
[2020-09-05] MEDS: METOPROLOL TARTRATE 12.5 MG TAB PO SCH ×2 (09:47→21:27)
[2020-09-05] MEDS: HEPARIN SODIUM,PORCINE/PF 5,000 UNIT/0.5 ML SYRINGE SQ SCH ×2 (09:47→19:30)
[2020-09-05] MEDS: CARBIDOPA-LEVODOPA 25-100 MG 1 EACH TAB PO SCH ×2 (09:48→15:01)
[2020-09-05] MEDS: levETIRAcetam 500 MG TAB PO SCH ×2 (09:48→19:30)
[2020-09-05] MEDS: LACTULOSE 20 GM/30 ML CUP PO SCH ×2 (09:49→19:29)
[2020-09-05] MEDS: SIMETHICONE 80 MG CHEWABLE PO SCH ×4 (09:49→16:10)
[2020-09-05] MEDS: SERTRALINE 100 MG TAB PO SCH (09:59)
[2020-09-05] MEDS: ERTAPENEM 1 GM in SODIUM CHLORIDE 0.9% 50 ML IVPB SCH (10:10)
[2020-09-05 11:20] LABS: Glucose,Whole Blood 106 mg/dL (75-99)
--- NOTE | 2020-09-05 13:24 | PN ---
PROGRESS NOTE Patient is seen for followup for acute kidney injury. Renal function has improved significantly with creatinine down to 0.6 today. It had peaked at about 1.86 mg/dL. Currently patient is off IV fluids. She has an indwelling Arroyo catheter, 24 hour urine output documented at about 1.2 L. PHYSICAL EXAMINATION: On examination today, blood pressure 166/91, heart rate 70 per minute, she is afebrile. Examination of the heart S1, S2. Examination of the lungs, bilateral breath sounds are heard. Abdomen is soft, nontender. Examination of lower extremities shows no significant edema. LABS: From yesterday show sodium 142, potassium 3.5, CO2 is 36.8, BUN 29, creatinine 0.6. ASSESSMENT: 1. Acute kidney injury, acute tubular necrosis/obstructive uropathy, currently improved. 2. Hydronephrosis/nephrolithiasis, status post bilateral ureteral stent placement on August 30, followed by Urology. 3. Sepsis associated with Proteus urinary tract infection and bacteremia. 4. Volume overload status post Lasix. 5. Acute on chronic diastolic congestive heart failure. 6. Moderate to severe tricuspid regurgitation and moderate pulmonary hypertension. PLAN: Continue off IV fluids. Repeat labs. MMODL / IJN: [id number] /
[2020-09-05] MEDS: BACLOFEN 10 MG TAB PO PRN (16:20)
[2020-09-05 16:55] LABS: Glucose,Whole Blood 137 mg/dL (75-99)
--- NOTE | 2020-09-05 17:30 | P.PN ---
Subjective Progress Note Date: 09/05/20 Principal diagnosis: Altered mental status, multifactorial.improved. This was related to a c ombination of hypercapnic encephalopathy and metabolic encephalopathy, both improved. Acute kidney injury with development of an anion gap metabolic acidosis, recovered Metabolic acidosis of a non-anion gap type in addition to acute on top of chronic hypercapnic respiratory failure. Please refer to the most recent blood gases and there was improvement and acid base status Right lower lobe pneumonia/infiltration/consolidation Septic shock secondary to Proteus UTI and septicemia/bacteremia Right-sided hydronephrosis [id number] stent insertion 85-year-old female was [facility] after she started complaining of pain in the right flank area moderate severity sharp and crampy in nature found to have bilateral obstructing ureteral stones from the CT urine analysis significantly abnormal consistent with infection and purulent drainage patient presently has a Arroyo catheter, patient underwent cystoscopy and ureteral stent placement. Patient was febrile with elevated white blood cell count chest x-ray mostly is consistent with pulmonary edema on the BNP is only minimally elevated and patient has lactic acidosis because of which I'm continuing antibiotics patient had lactic as well as on 3.2. Covid 19 was negative patient had ESBL Proteus in the urine in the past because of which patient's levofloxacin is being switched to meropenem and infectious disease will evaluated the patient patient also has a stage II sacral decubitus ulcer for which wound care is being consulted 09/05/2020 Patient is seen and evaluated for follow-up; patient is awake alert and oriented Vital signs are stable with a temperature of 97.8, pulse 70, and his physician's 16 and blood pressure 166/91, SpO2 of 97% on 3 L Patient was discussed in great detail with daughter and family has opted for hospice care; case management/PORT TRAFFIC MANAGER consulted and await final decision from family regarding plans to take patient home with hospice versus hospice facility versus SNF Objective - Vital Signs Vital signs: Vital Signs Temp 97.8 F 09/05/20 11:09 Pulse 67 09/05/20 11:13 Resp 16 09/05/20 11:09 BP 166/91 09/05/20 11:09 Pulse Ox 97 09/05/20 11:09 Intake & Output 09/04/20 09/05/20 09/05/20 18:59 06:59 18:59 Output Total 1550 750 Balance -1550 -750 Output: Urine 550 550 Stool 1000 200 Other: Voiding Method Indwelling Catheter Indwelling Catheter Indwelling Catheter # Voids 0 - Exam GENERAL: The patient is alert and oriented x1-2, not in any acute distress. Lethargic although more awake today. Has generalized weakness, parkinsonian tremor HEENT: Pupils are round and equally reacting to light. EOMI. No scleral icterus. No conjunctival pallor. Normocephalic, atraumatic. No pharyngeal erythema. No thyromegaly. CARDIOVASCULAR: S1 and S2 present. No murmurs, rubs, or gallops. PULMONARY: Diminished breath sounds bilaterally with some scattered crackles noted. ABDOMEN: Soft, nontender, nondistended, normoactive bowel sounds. No palpable organomegaly. MUSCULOSKELETAL: No joint swelling or deformity. EXTREMITIES: No cyanosis, clubbing, or pedal edema. NEUROLOGICAL: Gross neurological examination did not reveal any focal deficits. Diffusely weak SKIN: No rashes. - Labs CBC & Chem 7: 09/02/20 05:32 09/04/20 05:40 Labs: Abnormal Lab Results - Last 24 Hours (Table) 09/04/20 09/04/20 09/05/20 Range/Units 17:22 20:46 11:09 POC Glucose (mg/dL) 121 H 100 H 106 H (75-99) mg/dL Microbiology - Last 24 Hours (Table) 08/31/20 05:50 Blood Culture - Preliminary Blood No Growth after 120 hours Assessment and Plan Assessment: -Lactic acidosis: Secondary to severe sepsis -Acute hypercapnic respiratory failure and currently requiring BiPAP -Right lower lobe pneumonia as noted on x-ray -Acute renal failure secondary to sepsis probably acute tubular necrosis and prerenal azotemia, improving -Altered mental status, multifactorial secondary to metabolic acidosis, acute hypercapnic respiratory failure, infection, sepsis, underlying dementia -Sepsis secondary to urinary tract infection, acute pyelonephritis: Patient has bilateral ureteral calculi patient has had a ureteral stent placement. IV antibiotics transitioned Invanz. Infectious disease is following and culture showing Proteus mirabilis -Acute on chronic diastolic congestive heart failure, acute exacerbation with effusions noted on x-ray, echo shows LV systolic function is low to normal with an EF between 50 and 55% with some mild mitral regurgitation and moderate to severe tricuspid regurgitation along with moderate pulmonary hypertension present -Bilateral hydronephrosis, pyelonephritis -Stage II sacral decubitus ulcer wound care and infectious disease following -History of Parkinson's: Patient was resumed on her home medications -CVA in the past -Gastroesophageal reflux disease -Hypertension -seizure disorder -Hypothyroidism -DVT prophylaxis with Lovenox Plan: For above-mentioned chronic medical problems patient will be resumed on appropriate home medications. IV antibiotics transitioned to Invanz cultures finalizing showing Proteus mirabilis. His recent blood cultures have been negative. Infectious disease along with urology and nephrology following. Pulmonary consulted for the possibility of pneumonia with volume overload and acute respiratory failure. Patient currently maintained on venti mask and being transitioned to BiPAP. No CODE STATUS was changed. Prognosis is guarded. Will repeat a.m. labs and continue to monitor closely. Social work is following as patient is an ECF return once stabilized and discharged.
--- NOTE | 2020-09-05 18:33 | PN ---
PROGRESS NOTE DATE OF SERVICE: 09/05/2020. REASON FOR FOLLOW UP: ESBL proteus mirabilis, UTI and bacteremia. INTERVAL HISTORY: Patient is currently afebrile. The patient is more awake and alert. She is feeling better. Breathing comfortably and wants to go home. No chest pain or cough. No abdominal pain or diarrhea. PHYSICAL EXAMINATION: Blood pressure 166/91 with a pulse of 70. Temperature is 97.8. She is 97% on 3 L nasal cannula. General description is an elderly female lying in bed in no distress. Respiratory system: Unlabored breathing, clear to auscultation anteriorly. Heart S1, S2. Regular rate and rhythm. Abdomen soft, no tenderness. LABS: No new labs have been obtained today. Blood culture repeat 08/31 has been negative. DIAGNOSTIC IMPRESSION AND PLAN: The patient with ESBL proteus mirabilis urinary tract infection and bacteremia. Repeat blood cultures negative, on Invanz to continue for another 7 days to finish a 2 week course of therapy on discharge. Continue supportive care. MMODL / IJN: [id number] /
[2020-09-05] MEDS: ASPIRIN 81 MG PO SCH (19:29)
[2020-09-05] MEDS: PRIMIDONE 25 MG TAB PO SCH (19:30)
[2020-09-05 20:24] LABS: Glucose,Whole Blood 129 mg/dL (75-99)
[2020-09-05] MEDS: MELATONIN 3 MG TABLET PO PRN (21:35)
[2020-09-06] MEDS: HYDROcodone/APAP 5-325MG 1 EACH TAB PO PRN ×2 (02:29→15:52)
[2020-09-06] MEDS: traMADol 50 MG TAB PO SCH ×4 (04:12→23:37)
[2020-09-06] MEDS: LEVOTHYROXINE 50 MCG TAB PO SCH (04:13)
[2020-09-06] MEDS: ACETAMINOPHEN TAB 325 MG TAB PO SCH ×3 (04:13→20:42)
[2020-09-06 07:20] LABS: Glucose,Whole Blood 84 mg/dL (75-99)
[2020-09-06] MEDS: LACTULOSE 20 GM/30 ML CUP PO SCH ×2 (08:46→22:15)
[2020-09-06] MEDS: CARBIDOPA-LEVODOPA 25-100 MG 1 EACH TAB PO SCH ×2 (08:48→14:16)
[2020-09-06] MEDS: METOPROLOL TARTRATE 12.5 MG TAB PO SCH ×2 (08:48→20:40)
[2020-09-06] MEDS: PANTOPRAZOLE 40 MG TABLET PO SCH (08:48)
[2020-09-06] MEDS: levETIRAcetam 500 MG TAB PO SCH ×2 (08:48→20:40)
[2020-09-06] MEDS: SIMETHICONE 80 MG CHEWABLE PO SCH ×3 (08:49→18:05)
[2020-09-06] MEDS: HEPARIN SODIUM,PORCINE/PF 5,000 UNIT/0.5 ML SYRINGE SQ SCH ×2 (08:50→20:42)
[2020-09-06] MEDS: allopurinoL 100 MG TAB PO SCH (08:50)
[2020-09-06] MEDS: SERTRALINE 100 MG TAB PO SCH (08:50)
[2020-09-06] MEDS: ERTAPENEM 1 GM in SODIUM CHLORIDE 0.9% 50 ML IVPB SCH (08:51)
[2020-09-06] MEDS: IPRATROPIUM-ALBUTEROL 3 ML NEB INHALATION SCH ×4 (09:12→19:40)
[2020-09-06] MEDS: BUDESONIDE 0.5 MG/2 ML NEBU INHALATION SCH ×2 (09:12→19:40)
[2020-09-06 12:04] LABS: Glucose,Whole Blood 85 mg/dL (75-99)
--- NOTE | 2020-09-06 15:53 | P.PN ---
Subjective Progress Note Date: 09/06/20 This is an 85-year-old female who was recently admitted for right flank pain and was found to have bilateral obstructing ureteral stones on CT and recently underwent cystoscopy with bilateral ureteral stent placement with urology and is being closely monitored. Multiple medical consultations following including infectious disease, pulmonary, nephrology, and urology. Patient is maintained on IV Invanz as urine cultures finalized showing Proteus mirabilis with ESBL. Patient will likely need IV antibiotic therapy in the outpatient setting. Patient is also being seen by wound care for a stage II sacral decubitus ulcer. Patient is more alert and awake today and was reevaluated by speech therapy and started on dysphagia 3 chopped diet and tolerating foods more appropriately. Patient is being evaluated by physical therapy. Social work is following as patient is a resident at [facility]. Review of systems: Constitutional: No reports of fatigue, fever, or chills Cardiovascular: No reports of chest pain or palpitations Respiratory: No reports of shortness of breath or cough GI: No reports of nausea, vomiting, or diarrhea : No reports of dysuria or retention Neurovascular:Reports generalized weakness All medications have been reviewed Active Medications Acetaminophen (Acetaminophen Tab 325 Mg Tab) 650 mg PO TID@0500,1300,2100 [facility] Last Admin: 09/06/20 14:15 Dose: 650 mg Documented by: Hydrocodone Bitart/Acetaminophen (Hydrocodone/Apap 5-325mg 1 Each Tab) 1 each PO Q8H PRN PRN Reason: Pain Last Admin: 09/06/20 02:29 Dose: 1 each Documented by: Al Hydroxide/Mg Hydroxide (Mag Hydrox/Al Hydrox/Simeth 30 Ml Cup) 30 ml PO Q6H PRN PRN Reason: Indigestion Last Admin: 09/05/20 22:09 Dose: 30 ml Documented by: Albuterol/Ipratropium (Ipratropium-Albuterol 3 Ml Neb) 3 ml INHALATION RT-QID [facility] Last Admin: 09/06/20 11:51 Dose: 3 ml Documented by: Allopurinol (Allopurinol 100 Mg Tab) 200 mg PO DAILY [facility] Last Admin: 09/06/20 08:50 Dose: 200 mg Documented by: Aspirin (Aspirin 81 Mg) 81 mg PO HS@2000 [facility] Last Admin: 09/05/20 19:29 Dose: 81 mg Documented by: Baclofen (Baclofen 10 Mg Tab) 5 mg PO DAILY PRN PRN Reason: Muscle Spasm Last Admin: 09/05/20 16:20 Dose: 5 mg Documented by: Benzocaine (Benzocaine 20 % Gel 15 Gm Tube) 0.5 gm MM TID PRN PRN Reason: MOUTH PAIN Benzocaine/Menthol (Benzocaine/Menthol Lozeng 1 Each Lozenge) 1 each MUCOUS MEM Q4H PRN PRN Reason: COUGH/CONGESTION Budesonide (Budesonide 0.5 Mg/2 Ml Nebu) 0.5 mg INHALATION RT-BID [facility] Last Admin: 09/06/20 09:12 Dose: 0.5 mg Documented by: Carbidopa/Levodopa (Carbidopa-Levodopa 25-100 Mg 1 Each Tab) 1 each PO AC- BID@0700,1300 [facility] Last Admin: 09/06/20 14:16 Dose: 1 each Documented by: Heparin Sodium (Porcine) (Heparin Sodium,Porcine/Pf 5,000 Unit/0.5 Ml Syringe) 5,000 unit SQ Q12HR [facility] Last Admin: 09/06/20 08:50 Dose: 5,000 unit Documented by: Ertapenem 1 gm/ Sodium (Chloride) 50 mls @ 100 mls/hr IVPB DAILY [facility]; Protocol Last Admin: 09/06/20 08:51 Dose: 100 mls/hr Documented by: Lactulose (Lactulose 20 Gm/30 Ml Cup) 30 gm PO BID [facility] Last Admin: 09/06/20 08:46 Dose: 30 gm Documented by: Levetiracetam (Levetiracetam 500 Mg Tab) 500 mg PO BID@0700,1900 [facility] Last Admin: 09/06/20 08:48 Dose: 500 mg Documented by: Levothyroxine Sodium (Levothyroxine 50 Mcg Tab) 50 mcg PO DAILY@0500 [facility] Last Admin: 09/06/20 04:13 Dose: 50 mcg Documented by: Melatonin (Melatonin 3 Mg Tablet) 3 mg PO HS@2000 PRN PRN Reason: Insomnia Last Admin: 09/05/20 21:35 Dose: 3 mg Documented by: Metoprolol Tartrate (Metoprolol Tartrate 12.5 Mg Tab) 12.5 mg PO BID@0700,1900 [facility] Last Admin: 09/06/20 08:48 Dose: 12.5 mg Documented by: Naloxone HCl (Naloxone 0.4 Mg/Ml 1 Ml Vial) 0.2 mg IV Q2M PRN PRN Reason: Opioid Reversal Ondansetron HCl (Ondansetron 4 Mg/2 Ml Vial) 4 mg IVP Q8HR PRN PRN Reason: Nausea And Vomiting Pantoprazole Sodium (Pantoprazole 40 Mg Tablet) 40 mg PO DAILY@0730 [facility] Last Admin: 09/06/20 08:48 Dose: 40 mg Documented by: Primidone (Primidone 25 Mg Tab) 25 mg PO HS@1999 [facility] Last Admin: 09/05/20 19:30 Dose: 25 mg Documented by: Ropinirole HCl (Ropinirole Hcl 0.25 Mg Tab) 0.5 mg PO TID@0700,1300,1900 [facility] Last Admin: 09/06/20 14:15 Dose: 0.5 mg Documented by: Sertraline HCl (Sertraline 100 Mg Tab) 100 mg PO DAILY [facility] Last Admin: 09/06/20 08:50 Dose: 100 mg Documented by: Simethicone (Simethicone 80 Mg Chewable) 80 mg PO AC-TID@,12,17 [facility] Last Admin: 09/06/20 14:16 Dose: 80 mg Documented by: Tramadol HCl (Tramadol 50 Mg Tab) 50 mg PO Q6H [facility] Last Admin: 09/06/20 11:00 Dose: 50 mg Documented by: Objective - Vital Signs Vital signs: Vital Signs Temp 97.6 F 09/06/20 04:40 Pulse 68 09/06/20 11:51 Resp 20 09/06/20 04:40 BP 155/84 09/06/20 04:40 Pulse Ox 92 L 09/06/20 04:40 Intake & Output 09/05/20 09/06/20 09/06/20 18:59 06:59 18:59 Intake Total 50 100 Output Total 750 600 800 Balance -700 -500 -800 Intake: Intake, IV Titration 50 Amount Ertapenem 1 gm In Sodium 50 Chloride 0.9% 50 ml @ 100 mls/hr IVPB DAILY [facility] Rx #:[id number] Oral 100 Output: Urine 450 400 Uretheral (Arroyo) 200 Stool 300 200 800 Other: Voiding Method Indwelling Catheter Indwelling Catheter # Bowel Movements 2 - Exam GENERAL: The patient is alert and oriented x2, not in any acute distress. more awake today. Has generalized weakness, parkinsonian tremor. Temp is 98.0F, pulse is 68, respirations are 19, blood pressure is 160/81, oxygen saturation is 99% on 3 L via nasal cannula. HEENT: Pupils are round and equally reacting to light. EOMI. No scleral icterus. No conjunctival pallor. Normocephalic, atraumatic. No pharyngeal erythema. No thyromegaly. CARDIOVASCULAR: S1 and S2 muffled PULMONARY: Diminished breath sounds bilaterally with some scattered crackles noted. ABDOMEN: Soft, nontender, nondistended, normoactive bowel sounds. No palpable organomegaly. MUSCULOSKELETAL: No joint swelling or deformity. EXTREMITIES: No cyanosis, clubbing, or pedal edema. NEUROLOGICAL: Gross neurological examination did not reveal any focal deficits. Diffusely weak SKIN: No rashes. - Labs CBC & Chem 7: 09/02/20 05:32 09/04/20 05:40 Labs: Abnormal Lab Results - Last 24 Hours (Table) 09/05/20 09/05/20 Range/Units 16:54 20:19 POC Glucose (mg/dL) 137 H 129 H (75-99) mg/dL Microbiology - Last 24 Hours (Table) 08/31/20 05:50 Blood Culture - Final Blood No Growth after 144 hours Assessment and Plan Assessment: -Lactic acidosis: Secondary to severe sepsis -Acute hypercapnic respiratory failure requiring BiPAP, improving -Right lower lobe pneumonia as noted on x-ray -Acute renal failure secondary to sepsis probably acute tubular necrosis and prerenal azotemia, improving -Altered mental status, multifactorial secondary to a combination of metabolic encephalopathy and acute hypercapnic respiratory failure, improved -Sepsis secondary to urinary tract infection, acute pyelonephritis with bilateral ureteral calculi that is post bilateral ureteral stent placement. -Acute on chronic diastolic congestive heart failure, acute exacerbation, echo shows LV systolic function is low to normal with an EF between 50 and 55% with some mild mitral regurgitation and moderate to severe tricuspid regurgitation along with moderate pulmonary hypertension present -Bilateral hydronephrosis, pyelonephritis -Stage II sacral decubitus ulcer -History of Parkinson's -Parkinsonian tremor -CVA in the past -Gastroesophageal reflux disease -Hypertension -seizure disorder -Hypothyroidism -DVT prophylaxis with Lovenox -No code Recommendations and discussion: Recommend continue with current medications, management, and symptomatic treatment. PT/OT evaluating the patient. Multiple medical consultations following including nephrology, infectious disease, pulmonary, and urology. Patient is maintained on IV Invanz with cultures finalizing showing Proteus mirabilis in the blood and urine and most recent repeat blood cultures have been negative. Patient will need a midline and IV antibiotic therapy for an additional week per infectious disease to finish the course. Family requested an informational hospice meeting although have refused to sign on and they are not ready for hospice at this time. Social Work is following patient will be returning to [facility] where she is a resident once stabilized and discharged. Due to multiple complex medical issues, prognosis is guarded. Possible discharge in 24-48 hours.
--- NOTE | 2020-09-06 16:48 | PN ---
PROGRESS NOTE DATE OF SERVICE: 09/06/2020 REASON FOR FOLLOWUP: ESBL Proteus mirabilis UTI and bacteremia. INTERVAL HISTORY: The patient is currently afebrile. The patient is breathing comfortably. Denies having any chest pain or cough. No abdominal pain or diarrhea. PHYSICAL EXAMINATION: Blood pressure 160/81, pulse of 58, temperature 98. She is 99% on 3 L nasal cannula. General description is an elderly female lying in bed in no distress. RESPIRATORY SYSTEM: Unlabored breathing. Clear to auscultation anteriorly. HEART: S1, S2. Regular rate and rhythm. ABDOMEN: Soft. No tenderness. LABS: Repeat blood culture negative. No blood work was done today. DIAGNOSTIC IMPRESSION AND PLAN: Patient with extended-spectrum beta-lactamase Proteus mirabilis urinary tract infection and bacteremia. The patient has clinically responded to Rocephin and plan was a total of 2 weeks of antibiotic. However, possible plan for hospice; if that is the case, we will hold off asking for the midline. Plan of care was discussed with the admitting physician. HU / JANEY: [id number] /
[2020-09-06 16:49] LABS: Glucose,Whole Blood 102 mg/dL (75-99)
[2020-09-06 17:19] LABS: African American GFR (CKD) >90 (>60 ml/min/1.73 sqM); Blood Urea Nitrogen 15 mg/dL (7-17); Calcium 8.6 mg/dL (8.4-10.2); Chloride 96 mmol/L (98-107); Glucose 117 mg/dL (74-99); Magnesium 1.2 mg/dL (1.6-2.3); Non-African American GFR(CKD) >90 (>60 ml/min/1.73 sqM); Potassium 3.6 mmol/L (3.5-5.1); Sodium 139 mmol/L (137-145)
[2020-09-06 17:25] LABS: Anion Gap 4 mmol/L; Carbon Dioxide 39 mmol/L (22-30)
[2020-09-06] MEDS: ASPIRIN 81 MG PO SCH (20:41)
[2020-09-06] MEDS: PRIMIDONE 25 MG TAB PO SCH (20:42)
[2020-09-07] MEDS: traMADol 50 MG TAB PO SCH ×3 (04:59→16:38)
[2020-09-07] MEDS: ACETAMINOPHEN TAB 325 MG TAB PO SCH ×2 (05:42→11:36)
[2020-09-07] MEDS: LEVOTHYROXINE 50 MCG TAB PO SCH (05:42)
[2020-09-07 06:13] VITALS: BP 174/79; TEMP 98
[2020-09-07] MEDS: IPRATROPIUM-ALBUTEROL 3 ML NEB INHALATION SCH ×3 (07:27→15:15)
[2020-09-07 07:28] LABS: Glucose,Whole Blood 82 mg/dL (75-99)
[2020-09-07] MEDS: BUDESONIDE 0.5 MG/2 ML NEBU INHALATION SCH (07:28)
[2020-09-07] MEDS: HEPARIN SODIUM,PORCINE/PF 5,000 UNIT/0.5 ML SYRINGE SQ SCH (07:41)
[2020-09-07] MEDS: allopurinoL 100 MG TAB PO SCH (07:41)
[2020-09-07] MEDS: PANTOPRAZOLE 40 MG TABLET PO SCH (07:41)
[2020-09-07] MEDS: SIMETHICONE 80 MG CHEWABLE PO SCH ×3 (07:42→16:38)
[2020-09-07] MEDS: CARBIDOPA-LEVODOPA 25-100 MG 1 EACH TAB PO SCH ×2 (07:42→11:35)
[2020-09-07] MEDS: levETIRAcetam 500 MG TAB PO SCH (07:43)
[2020-09-07] MEDS: METOPROLOL TARTRATE 12.5 MG TAB PO SCH (07:43)
[2020-09-07] MEDS: SERTRALINE 100 MG TAB PO SCH (07:43)
[2020-09-07] MEDS: LACTULOSE 20 GM/30 ML CUP PO SCH (07:45)
[2020-09-07] MEDS: HYDROcodone/APAP 5-325MG 1 EACH TAB PO PRN ×2 (07:54→15:44)
[2020-09-07] MEDS: ERTAPENEM 1 GM in SODIUM CHLORIDE 0.9% 50 ML IVPB SCH (07:54)
[2020-09-07] MEDS ORDERED: Magnesium Replacement Protocol 1 EACH MISC MISCELLANE PRN (09:31)
[2020-09-07 11:13] VITALS: RESP 18
[2020-09-07] MEDS: MAGNESIUM SULFATE-D5W PMX 1 GM in DEXTROSE/WATER 1 100ML.BAG IVPB SCH ×3 (11:36→16:55)
--- NOTE | 2020-09-07 14:06 | P.DS ---
Providers Date of admission: 08/29/20 22:48 Expected date of discharge: 09/07/20 Attending physician: Radha Phelps Consults: 08/29/20 22:49 Consult Physician Urgent Consulting Provider: Heron Zavala Consult Reason/Comments: Bilateral obstructing ureteral calculi, UTI, sepsis Do you want consulting provider notified?: Already Contacted 08/30/20 10:32 Consult Physician Routine Consulting Provider: Mahad Mix Consult Reason/Comments: UTI Do you want consulting provider notified?: Yes 08/31/20 14:04 Consult Physician Urgent Consulting Provider: Alfredo Rod Consult Reason/Comments: Hydronephrosis, DEEPAK, recent ureteral stent placement Do you want consulting provider notified?: Yes 09/02/20 09:13 Consult Physician Urgent Consulting Provider: Bita Marsh Consult Reason/Comments: pulm HTN, effusion, PNA? Do you want consulting provider notified?: Yes Primary care physician: Miguel Newton Hospital Course: Final diagnosis -Lactic acidosis: Secondary to severe sepsis -Acute hypercapnic respiratory failure requiring BiPAP, improving -Right lower lobe pneumonia as noted on x-ray -Acute renal failure secondary to sepsis probably acute tubular necrosis and prerenal azotemia, improving -Altered mental status, multifactorial secondary to a combination of metabolic encephalopathy and acute hypercapnic respiratory failure, improved -Sepsis secondary to urinary tract infection, acute pyelonephritis with bilateral ureteral calculi that is post bilateral ureteral stent placement. -Acute on chronic diastolic congestive heart failure, acute exacerbation, echo shows LV systolic function is low to normal with an EF between 50 and 55% with some mild mitral regurgitation and moderate to severe tricuspid regurgitation along with moderate pulmonary hypertension present -Bilateral hydronephrosis, pyelonephritis -Stage II sacral decubitus ulcer -History of Parkinson's -Parkinsonian tremor -CVA in the past -Gastroesophageal reflux disease -Hypertension -seizure disorder -Hypothyroidism -DVT prophylaxis with Lovenox -No code Discharge disposition Patient is being discharged in a stable condition with guarded prognosis to [facility] where she is a resident. Patient will follow-up with Dr. Newton in the outpatient setting upon discharge. Patient will need to follow- up with urology Dr. Zavala in the outpatient setting in 1 week. Patient will also need to continue with IV antibiotics per infectious disease as directed. Total time taken is greater than 35 minutes. Hospital course This is an 85-year-old female who was recently admitted for right flank pain found to have bilateral obstructing ureteral stones and underwent cystoscopy with bilateral ureteral stent placement and will need follow-up with Dr. Zavala in the outpatient setting in 1 week. Patient will continue on IV antibiotic therapy per infectious disease as directed. Patient is to receive a midline for IV antibiotics. Patient also to continue with local wound care of the sacral decubitus ulcer. Patient will be continued on dysphagia 3 Diet with strict aspiration precautions, head of the bed elevated 30-45 at all times, supervision with meals and ensures twice daily with meals. Also recommend to continue with nebulizing treatments and patient is currently maintained on 3 L of oxygen. Repeat labs in a few days to monitor CBC, electrolytes, and kidney functions. Patient is more alert and awake today and states like to return home. Currently no reports of chest pain, shortness of breath, or palpitations. Patient is afebrile. No reports of nausea or vomiting and patient is tolerating diet. Patient will be going to [facility] today. On exam vital signs are stable. Cardio S1, S2 are muffled. Respiratory system shows diminished breath sounds at the bases with no wheezing or rhonchi noted. Abdomen is soft and nontender. Nervous system shows diffuse weakness. Please refer to medication reconciliation sheet for a list of medications. Patient Condition at Discharge: Stable Plan - Discharge Summary New Discharge Prescriptions: New allopurinoL [Zyloprim] 200 mg PO DAILY tab Ipratropium-Albuterol Nebulize [Duoneb 0.5 mg-3 mg/3 ml Soln] 3 ml INHALATION RT-QID ml Budesonide [Pulmicort] 0.5 mg INHALATION RT-BID ml Continue Melatonin 3 mg PO HS@2000 Acetaminophen Tab [Tylenol] 650 mg PO TID@0500,1300,2100 Sertraline [Zoloft] 100 mg PO DAILY Aspirin 81 mg PO HS@2000 Levothyroxine Sodium [Synthroid] 50 mcg PO DAILY@0500 Lactulose 30 gm PO BID Primidone [Mysoline] 25 mg PO HS@2000 Mag Hydrox/Aluminum Hyd/Simeth [Mylanta Maximum Strength Liq] 30 ml PO Q6H PRN PRN Reason: Indigestion rOPINIRole HCL [Requip] 0.5 mg PO TID@0700,1300,1900 Metoprolol Tartrate [Lopressor] 12.5 mg PO BID@0700,1900 Carbidopa-Levodopa 25-100 mg [Sinemet 25-100 mg] 1 tab PO AC-BID@0700,1300 Baclofen [Lioresal] 10 mg PO DAILY tab Pantoprazole Sodium [Protonix] 40 mg PO DAILY Simethicone Chew [Mylicon Chew] 80 mg PO AC-TID@,, amLODIPine [Norvasc] 10 mg PO DAILY@0500 Benzocaine/Menthol [Cepacol Sore Throat Lozenge] 1 lozenge MM Q4H PRN PRN Reason: COUGH/CONGESTION Benzocaine [Anbesol] 1 applic MUCOUS MEM TID PRN PRN Reason: MOUTH PAIN levETIRAcetam [Keppra] 500 mg PO BID@0700,1900 HYDROcodone/APAP 5-325MG [[place] 5-325] 1 tab PO Q8H PRN #10 tab PRN Reason: Pain traMADol HCL 50 mg PO Q6H #10 tab Discontinued Allopurinol [Zyloprim] 300 mg PO DAILY Discharge Medication List Acetaminophen Tab [Tylenol] 650 mg PO TID@0500,1300,2100 09/18/18 [History] Aspirin 81 mg PO HS@199909/18/18 [History] Levothyroxine Sodium [Synthroid] 50 mcg PO DAILY@0500 09/18/18 [History] Melatonin 3 mg PO HS@199909/18/18 [History] Sertraline [Zoloft] 100 mg PO DAILY 09/18/18 [History] Lactulose 30 gm PO BID 06/08/19 [History] Primidone [Mysoline] 25 mg PO HS@199906/08/19 [History] Carbidopa-Levodopa 25-100 mg [Sinemet 25-100 mg] 1 tab PO AC-BID@0700,1300 01/12/20 [History] Mag Hydrox/Aluminum Hyd/Simeth [Mylanta Maximum Strength Liq] 30 ml PO Q6H PRN 01/12/20 [History] Metoprolol Tartrate [Lopressor] 12.5 mg PO BID@0700,1900 01/12/20 [History] rOPINIRole HCL [Requip] 0.5 mg PO TID@0700,1300,1900 01/12/20 [History] Baclofen [Lioresal] 10 mg PO DAILY tab 01/16/20 [Rx] Benzocaine [Anbesol] 1 applic MUCOUS MEM TID PRN 08/29/20 [History] Benzocaine/Menthol [Cepacol Sore Throat Lozenge] 1 lozenge MM Q4H PRN 08/29/20 [History] Pantoprazole Sodium [Protonix] 40 mg PO DAILY 08/29/20 [History] Simethicone Chew [Mylicon Chew] 80 mg PO AC-TID@07,12,17 08/29/20 [History] amLODIPine [Norvasc] 10 mg PO DAILY@0500 08/29/20 [History] levETIRAcetam [Keppra] 500 mg PO BID@0700,1900 08/29/20 [History] Budesonide [Pulmicort] 0.5 mg INHALATION RT-BID ml 09/07/20 [Rx] HYDROcodone/APAP 5-325MG [[place] 5-325] 1 tab PO Q8H PRN #10 tab 09/07/20 [Rx] Ipratropium-Albuterol Nebulize [Duoneb 0.5 mg-3 mg/3 ml Soln] 3 ml INHALATION RT-QID ml 09/07/20 [Rx] allopurinoL [Zyloprim] 200 mg PO DAILY tab 09/07/20 [Rx] traMADol HCL 50 mg PO Q6H #10 tab 09/07/20 [Rx] Follow up Appointment(s)/Referral(s): Miguel Newton MD [Primary Care Provider] - 1-2 days Heron Zavala MD [STAFF PHYSICIAN] - 1 Week Ambulatory/Diagnostic Orders: Complete Blood Count w/diff [LAB.AMB] Time Frame: 2 Days, Location: None Selected Patient Instructions/Handouts: Urinary Tract Infection in Women (DC) Activity/Diet/Wound Care/Special Instructions: Per Dr. Dover, catheter is to be removed at time of discharge. Schedule follow- up with Dr. Zavala. Patient is returning to [facility] Activity as tolerated Opinion with IV antibiotics per infectious disease Continue with dysphagia level III chopped diet with aspiration precautions and one-to-one supervision and had of the bed elevated 30-45 Continue with ensure oral supplements twice a day with meals Repeat CBC and CMP in 2-3 days Discharge Disposition: TRANSFER TO SNF/ECF
[2020-09-07 15:19] VITALS: PULSE 65
--- NOTE | 2020-09-07 16:26 | PN ---
PROGRESS NOTE DATE OF SERVICE: 09/07/2020 REASON FOR FOLLOWUP: ESBL Proteus mirabilis UTI and bacteremia. INTERVAL HISTORY: The patient is currently afebrile. The patient is breathing comfortably. The patient denies having any chest pain or shortness of breath or cough. No abdominal pain or diarrhea. PHYSICAL EXAMINATION: Blood pressure is 174/79, pulse of 64, temperature is 98. She is 100% on 3 L nasal cannula. General description is an elderly female lying in bed in no distress. RESPIRATORY SYSTEM: Unlabored breathing clear to auscultation anteriorly. HEART: S1, S2. Regular rate and rhythm. ABDOMEN: Soft, no tenderness. LABS: BUN of 15, creatinine 0.42. Blood culture repeat on the was negative. DIAGNOSTIC IMPRESSION AND PLAN: Patient with ESBL Proteus mirabilis urinary tract infection and bacteremia. Followup blood culture negative. Patient to continue with IV Invanz for another days to finish a 2-week course of therapy and close outpatient followup. MMODL / IJN: [id number] /
== END 2020-09-07 17:21 | DRG 853 ==
LOC: EC 18:04 → 5NMEDONC 22:48
PROVIDERS: ADMIT Hospitalist; ATTEND Hospitalist
PROC: 0T788DZ Dilation of Bilateral Ureters with Intraluminal Device, Via Natural or Artificial Opening Endoscopic (ICD-10-PCS; principal; 2020-08-30)
PROC: 5A09457 Assistance with Respiratory Ventilation, 24-96 Consecutive Hours, Continuous Positive Airway Pressure (ICD-10-PCS; 2020-09-02)
PROC: 05HB33Z Insertion of Infusion Device into Right Basilic Vein, Percutaneous Approach (ICD-10-PCS; 2020-09-07 12:40)
DX: A41.59 Other Gram-negative sepsis (principal); N17.0 Acute kidney failure with tubular necrosis; J96.22 Acute and chronic respiratory failure with hypercapnia; R65.21 Severe sepsis with septic shock; G93.41 Metabolic encephalopathy; I50.33 Acute on chronic diastolic (congestive) heart failure; J18.9 Pneumonia, unspecified organism; E87.4 Mixed disorder of acid-base balance; N13.6 Pyonephrosis; Z68.42 Body mass index [BMI] 45.0-49.9, adult; I69.359 Hemiplegia and hemiparesis following cerebral infarction affecting unspecified side; L89.152 Pressure ulcer of sacral region, stage 2; I27.20 Pulmonary hypertension, unspecified; Z43.2 Encounter for attention to ileostomy; G20 Parkinson's disease; F02.80 Dementia in other diseases classified elsewhere, unspecified severity, without behavioral disturbance, psychotic disturbance, mood disturbance, and anxiety; I11.0 Hypertensive heart disease with heart failure; G40.909 Epilepsy, unspecified, not intractable, without status epilepticus; E66.01 Morbid (severe) obesity due to excess calories; Z66 Do not resuscitate; Z20.822 Contact with and (suspected) exposure to COVID-19; G25.81 Restless legs syndrome; E03.9 Hypothyroidism, unspecified; I08.1 Rheumatic disorders of both mitral and tricuspid valves; D64.9 Anemia, unspecified; K21.9 Gastro-esophageal reflux disease without esophagitis; J98.4 Other disorders of lung; F41.9 Anxiety disorder, unspecified; M19.90 Unspecified osteoarthritis, unspecified site; Z79.82 Long term (current) use of aspirin; Z79.890 Hormone replacement therapy; Z79.891 Long term (current) use of opiate analgesic; Z79.899 Other long term (current) drug therapy; Z86.14 Personal history of Methicillin resistant Staphylococcus aureus infection; Z86.19 Personal history of other infectious and parasitic diseases; Z90.49 Acquired absence of other specified parts of digestive tract; Z87.19 Personal history of other diseases of the digestive system; Z87.39 Personal history of other diseases of the musculoskeletal system and connective tissue; Z71.3 Dietary counseling and surveillance; Z87.440 Personal history of urinary (tract) infections; Z87.442 Personal history of urinary calculi; Z98.890 Other specified postprocedural states; Z88.5 Allergy status to narcotic agent; Z88.0 Allergy status to penicillin; Z80.1 Family history of malignant neoplasm of trachea, bronchus and lung; Z82.5 Family history of asthma and other chronic lower respiratory diseases
CPT/HCPCS: 36410; 36415; 36600; 71045; 74176; 76937; 80048; 80053; 80164; 81001; 82805; 83605; 83735; 83880; 84484; 85025; 85610; 85730; 87040; 87077; 87086; 87186; 87635; 93005; 93306; 94640; 94660; 94760; 96361; 96374; 99285

== ENCOUNTER 2020-09-08 02:11 | Inpatient (IN) | payer MEDICARE, BC, OTHER ==
--- NOTE | 2020-09-08 02:36 | ED ---
General Adult HPI - General Stated complaint: MARLENA Time Seen by Provider: 09/08/20 02:18 Source: patient, EMS, RN notes reviewed, old records reviewed Mode of arrival: EMS Limitations: no limitations - History of Present Illness Initial comments: 85-year-old female presents emergency Department via EMS from [facility] chief complaint of shortness of breath. Patient reportedly was found have some mild difficult to breathing they noted that her pulse ox dropped and they increased her oxygen from 2 L to 6 L. Patient states she has no specific complaints at this time. She was just discharged 09/07/20 for UTI bacteremia.patient denies any chest pain no headache or dizziness. She states she does feel tired. Patient does have an extensive past history. No reported recent fevers. - Related Data Home Medications Medication Instructions Recorded Confirmed Acetaminophen Tab [Tylenol] 650 mg PO TID@0500,1300,2100 09/18/18 08/29/20 Aspirin 81 mg PO HS@199909/18/18 08/29/20 Levothyroxine Sodium [Synthroid] 50 mcg PO DAILY@0500 09/18/18 08/29/20 Melatonin 3 mg PO HS@199909/18/18 08/29/20 Sertraline [Zoloft] 100 mg PO DAILY 09/18/18 08/29/20 Lactulose 30 gm PO BID 06/08/19 08/29/20 Primidone [Mysoline] 25 mg PO HS@199906/08/19 08/29/20 Carbidopa-Levodopa 25-100 mg 1 tab PO AC-BID@0700,1300 01/12/20 08/29/20 [Sinemet 25-100 mg] Mag Hydrox/Aluminum Hyd/Simeth 30 ml PO Q6H PRN 01/12/20 08/29/20 [Mylanta Maximum Strength Liq] Metoprolol Tartrate [Lopressor] 12.5 mg PO BID@0700,1900 01/12/20 08/29/20 rOPINIRole HCL [Requip] 0.5 mg PO TID@0700,1300,1900 01/12/20 08/29/20 Benzocaine [Anbesol] 1 applic MUCOUS MEM TID PRN 08/29/20 08/29/20 Benzocaine/Menthol [Cepacol Sore 1 lozenge MM Q4H PRN 08/29/20 08/29/20 Throat Lozenge] Pantoprazole Sodium [Protonix] 40 mg PO DAILY 08/29/20 08/29/20 Simethicone Chew [Mylicon Chew] 80 mg PO AC-TID@07,12,17 08/29/20 08/29/20 amLODIPine [Norvasc] 10 mg PO DAILY@0500 08/29/20 08/29/20 levETIRAcetam [Keppra] 500 mg PO BID@0700,1900 08/29/20 08/29/20 Previous Rx's Medication Instructions Recorded Baclofen [Lioresal] 10 mg PO DAILY tab 01/16/20 Budesonide [Pulmicort] 0.5 mg INHALATION RT-BID ml 09/07/20 Ertapenem [INVanz] 1 gm IVPB Q24H #8 bag 09/07/20 HYDROcodone/APAP 5-325MG [[place] 1 tab PO Q8H PRN #10 tab 09/07/20 5-325] Ipratropium-Albuterol Nebulize 3 ml INHALATION RT-QID ml 09/07/20 [Duoneb 0.5 mg-3 mg/3 ml Soln] allopurinoL [Zyloprim] 200 mg PO DAILY tab 09/07/20 traMADol HCL 50 mg PO Q6H #10 tab 09/07/20 Allergies Allergy/AdvReac Type Severity Reaction Status Date / Time amoxicillin [From Augmentin] Allergy Unknown Verified 08/29/20 20:13 clavulanic acid Allergy Unknown Verified 08/29/20 20:13 [From Augmentin] codeine Allergy Unknown Verified 08/29/20 20:13 Review of Systems ROS Statement: Those systems with pertinent positive or pertinent negative responses have been documented in the HPI. ROS Other: All systems not noted in ROS Statement are negative. Past Medical History Past Medical History: CVA/TIA, GERD/Reflux, Hypertension, Memory Impairment, Osteoarthritis (OA), Seizure Disorder, Thyroid Disorder Additional Past Medical History / Comment(s): restless leg syndrome, hemiplegia, hemiparesis, anemia, History of Any Multi-Drug Resistant Organisms: ESBL, MRSA Date of last positivie culture/infection: 08/30/20 ESBL/ MRSA 2008 MDRO Source:: ESBL URINE MRSA STOOL Past Surgical History: Back Surgery, Cholecystectomy Additional Past Surgical History / Comment(s): ileostomy Past Anesthesia/Blood Transfusion Reactions: No Reported Reaction Past Psychological History: Anxiety Smoking Status: Never smoker Past Alcohol Use History: Unable to Obtain Past Drug Use History: Unable to Obtain - Past Family History Father Family Medical History: Cancer Additional Family Medical History / Comment(s): lung CA Mother Family Medical History: Cancer Sister(s) Additional Family Medical History / Comment(s): emphysema General Exam Limitations: no limitations General appearance: alert, in no apparent distress, obese Head exam: Present: atraumatic, normocephalic, normal inspection Eye exam: Present: normal appearance, PERRL. Absent: scleral icterus, conjunctival injection, periorbital swelling ENT exam: Present: mucous membranes moist Neck exam: Present: normal inspection, full ROM. Absent: tenderness, meningismus, lymphadenopathy Respiratory exam: Present: normal lung sounds bilaterally. Absent: respiratory distress, wheezes, rales, rhonchi, stridor Cardiovascular Exam: Present: normal rhythm, tachycardia, normal heart sounds. Absent: systolic murmur, diastolic murmur, rubs, gallop, clicks GI/Abdominal exam: Present: soft, normal bowel sounds, other (Colostomy noted). Absent: distended, tenderness, guarding, rebound, rigid Disposition Referrals: Miguel Newton MD [Primary Care Provider] - 1-2 days
[2020-09-08 03:02] LABS: Basophils % (A) 0 %; Eosinophils # (A) 0.1 k/uL (0-0.7); Eosinophils % (A) 0 %; HCT 32.1 % (34.0-46.0); HGB 9.6 gm/dL (11.4-16.0); Hypochromasia Moderate; INR 1.1 (<1.2); Lymphocytes # (A) 0.8 k/uL (1.0-4.8); Lymphocytes % (A) 6 %; MCH 30.2 pg (25.0-35.0); MCV 100.6 fL (80.0-100.0); Macrocytosis Slight; Mean Platelet Volume 9.9; Monocytes # (A) 0.6 k/uL (0-1.0); Monocytes % (A) 5 %; Neutrophils # (A) 10.6 k/uL (1.3-7.7); Neutrophils % (A) 86 %; Partial Thromboplastin Time 23.5 sec (22.0-30.0); Platelet Count 231 k/uL (150-450); Prothrombin Time 11.9 sec (9.0-12.0); RBC 3.19 m/uL (3.80-5.40); RDW 14.9 % (11.5-15.5); WBC 12.3 k/uL (3.8-10.6)
[2020-09-08 03:06] LABS: Albumin 3.3 g/dL (3.5-5.0); Calcium 8.9 mg/dL (8.4-10.2); Magnesium 1.6 mg/dL (1.6-2.3); Potassium 3.7 mmol/L (3.5-5.1); Total Bilirubin 0.5 mg/dL (0.2-1.3); Total Protein 7.4 g/dL (6.3-8.2)
--- NOTE | 2020-09-08 03:34 | XR ---
EXAM: XR Chest, 2 Views CLINICAL HISTORY: ITS.REASON XR Reason: difficulty breathing TECHNIQUE: Frontal and lateral views of the chest. COMPARISON: Chest radiograph on 09/02/2020 FINDINGS: Hardware: None. Lungs/pleura: Similar to slightly increased moderate right pleural effusion. Similar trace left pleural effusion. Associated lower lung atelectasis versus pneumonia. Possible background of pulmonary vasculature congestion/edema. Heart/mediastinum: Similar enlargement of the cardiac silhouette. Atherosclerotic calcifications of the aorta. Soft tissues: Unremarkable. Bones: No acute fracture. Degenerative changes of the spine. Upper abdomen: Cholecystectomy clips in the upper abdomen. IMPRESSION: 1. Similar to slightly increased moderate right pleural effusion. Similar trace left pleural effusion. Associated lower lung atelectasis versus pneumonia. 2. Possible background of pulmonary vasculature congestion/edema.
[2020-09-08] MEDS ORDERED: FUROSEMIDE 10 MG/ML 2 ML VIAL IV ONE (03:45)
[2020-09-08] MEDS ORDERED: FUROSEMIDE 10 MG/ML 4 ML VIAL IV SCH (05:00)
[2020-09-08] MEDS: traMADol 50 MG TAB PO SCH ×4 (06:20→23:08)
[2020-09-08] MEDS: HYDROcodone/APAP 5-325MG 1 EACH TAB PO PRN (06:21)
[2020-09-08] MEDS: CARBIDOPA-LEVODOPA 25-100 MG 1 EACH TAB PO SCH ×2 (06:55→12:18)
[2020-09-08] MEDS: LEVOTHYROXINE 50 MCG TAB PO SCH (06:56)
[2020-09-08] MEDS: PANTOPRAZOLE 40 MG TABLET PO SCH (06:56)
[2020-09-08] MEDS: ACETAMINOPHEN TAB 325 MG TAB PO SCH ×3 (06:56→20:35)
[2020-09-08] MEDS: amLODIPine 10 MG TAB PO SCH (06:56)
[2020-09-08] MEDS: levETIRAcetam 500 MG TAB PO SCH ×2 (06:56→17:22)
[2020-09-08] MEDS: METOPROLOL TARTRATE 12.5 MG TAB PO SCH ×2 (07:00→17:22)
[2020-09-08] MEDS: LACTULOSE 20 GM/30 ML CUP PO SCH ×3 (08:22→21:44)
[2020-09-08] MEDS: SERTRALINE 100 MG TAB PO SCH ×2 (08:22→08:27)
[2020-09-08] MEDS: BUDESONIDE 0.5 MG/2 ML NEBU INHALATION SCH ×2 (08:44→21:28)
[2020-09-08] MEDS: IPRATROPIUM-ALBUTEROL 3 ML NEB INHALATION SCH ×4 (08:44→21:28)
[2020-09-08] MEDS: SIMETHICONE 80 MG CHEWABLE PO SCH ×3 (09:36→17:23)
[2020-09-08 10:37] VITALS: BMI 74.1
[2020-09-08 11:53] LABS: Glucose,Whole Blood 120 mg/dL (75-99)
[2020-09-08] MEDS ORDERED: BENZOCAINE 20 % GEL 15 GM TUBE MM PRN (15:38)
[2020-09-08] MEDS ORDERED: ERTAPENEM 1 GM VIAL IVPB SCH (15:45)
[2020-09-08] MEDS ORDERED: ACETAMINOPHEN TAB 325 MG TAB PO SCH (16:00)
[2020-09-08 16:27] LABS: Glucose,Whole Blood 91 mg/dL (75-99)
--- NOTE | 2020-09-08 16:27 | CT ---
EXAMINATION TYPE: CT chest wo con DATE OF EXAM: 09/08/2020 COMPARISON: CT chest January 13, 2020 HISTORY: right pleural effusion CT DLP: 682.3 mGycm. Automated Exposure Control for Dose Reduction was Utilized. TECHNIQUE: CT scan of the thorax is performed without IV contrast. FINDINGS: Current exam suboptimal as integrated by motion artifact. LUNGS: Bilateral mild underlying emphysematous change. Small to moderate-sized right pleural effusion or fluid collection is increased in size from most recent CT. There is associated right mid to basil ar compressive atelectasis extending to the hilum. Left lung shows tiny left pleural effusion and ass ociated compressive atelectasis. No pneumothorax is seen bilaterally. No new mediastinal shift. MEDIASTINUM: Lack of IV contrast is noted to limit evaluation for mediastinal and especially hilar ad enopathy. There are no definitive new greater than 1 cm mediastinal lymph nodes. Persistent cardiomeg zachary. Persistent lipomatous hypertrophy of the intra-arterial septum. Calcification at level of mitral and aortic valves redemonstrated. No pericardial effusion. OTHER: Surgical clips and sutures in the anterior left upper quadrant redemonstrated. Markedly exagge rated curvature seen on sagittal images. IMPRESSION: Small to moderate-sized right pleural effusion increased in size from prior CT. Associate d right lung compressive atelectasis. Cardiomegaly with tiny left pleural effusion noted. Suboptimal study without IV contrast.
--- NOTE | 2020-09-08 16:42 | HP ---
HISTORY AND PHYSICAL DATE OF SERVICE: 09/08/2020 CHIEF COMPLAINT: Shortness of breath. HISTORY OF PRESENT ILLNESS: This is an 85-year-old woman with a past medical history of multiple medical problems including possibly acute right lobe pneumonia, history of possible UTI and sepsis and multiple medical issues. Patient improved significantly. Patient also had ESBL Proteus mirabilis UTI and bacteremia. Followup blood cultures negative. The patient was started on Invanz and the patient was sent to the [facility]. At [facility], the patient was found to be extremely short of breath and patient subsequently sent to [facility] and was found to have CHF acute exacerbation. Patient given IV Lasix and patient closely monitored at this time. There is no history of fever, rigors, chills. No headache, loss of consciousness, seizures at this time. PAST MEDICAL HISTORY: History of CVA, TIA, GERD, hypertension, memory impairment, DJD, seizure disorder, hemiparesis, hemiplegia, anemia, ESBL Proteus, MRSA. MEDICATIONS ARE: Ultram, Zoloft, Requip, Mylicon, Mysoline, Protonix. Lopressor, Cooks, Keppra, melatonin, DuoNeb, Invanz, Sinemet, Cepacol, Norvasc, Zyloprim, Pulmicort, Doses reviewed. ALLERGIES: AMOXICILLIN, CLAVULANIC ACID, CODEINE. FAMILY HISTORY: History of lung cancer in the family. SOCIAL HISTORY: History of smoking. No alcohol. REVIEW OF SYSTEMS: ENT: No diminished vision or hearing. CARDIOVASCULAR: As mentioned earlier. RESPIRATORY: As mentioned earlier. GI: No nausea or vomiting. : No dysuria. NERVOUS SYSTEM: As mentioned earlier. ALLERGY/IMMUNOLOGY: No asthma or hayfever. MUSCULOSKELETAL: As mentioned earlier. HEMATOLOGY: No history of anemia. ENDOCRINE: No history of diabetes. Hypothyroidism. CONSTITUTIONAL: As mentioned earlier. DERMATOLOGY: Negative. RHEUMATOLOGY: Negative. PSYCHIATRY: As mentioned earlier. PHYSICAL EXAM: GENERAL: Patient is alert and oriented times two. VITAL SIGNS: Pulse 76, blood pressure 153/85, respirations 18, temperature normal, pulse ox 99% on 3 liters. HEENT: Conjunctivae normal. NECK: No jugular venous distention. No carotid bruits. No lymph node enlargement. RESPIRATORY: Breath sounds diminished at the bases. A few scattered rhonchi and crackles. HEART: S1 and S2, muffled. ABDOMEN: Soft, obese, no tenderness. EXTREMITIES: No edema, no swelling. NERVOUS: Higher functions as mentioned earlier. Moves all four limbs. No focal motor or sensory deficits. LYMPHATICS: No lymph nodes palpable in the neck or axillae. SKIN: No rashes. JOINTS: No active deforming arthropathy. LABS: At this time shows WBC 12.2, hemoglobin 9.6, MCV 100.6, sodium 137, potassium 3.7. Troponin 0.087 and 0.146. ASSESSMENT: 1. Congestive heart failure acute exacerbation with acute on chronic diastolic dysfunction, ejection fraction 50-55%. 2. Troponin elevated up to 0.146. Possible acute col-GE-vnbtcaa-elevation myocardial infarction. 3. History of recent ESBL Proteus bacteremia and urinary tract infection .. 4. History of possible right lower pneumonia and right pleural effusion. 5. Increased WBC. 6. Increased MCV. 7. Anemia, chronic of undetermined etiology. 8. History of cerebrovascular accident and transient ischemic attack. 9. Gastroesophageal reflux disease. 10.Hypertension. 11.History of dementia. 12.History of degenerative joint disease. 13.History of seizure disorder. 14.Hypothyroidism. 15.Restless legs syndrome. 16.History of hemiplegia. 17.History of hemiparesis. 18.History of MRSA. 19.History of anxiety. 20.Obesity with body mass index of 74.1. RECOMMENDATIONS AND DISCUSSION: Recommend to continue current management and continue symptomatic treatment. Otherwise at this time continue with IV Lasix. Follow closely with Cardiology and Pulmonology and Infectious Disease. The patient is on Invanz which will be continued. Prognosis guarded because of multiple complex medical issues. Further recommendations to follow. MMODL / IJN: [id number] / [facility]
[2020-09-08 16:59] LABS: ALT <6 U/L (4-34); AST 26 U/L (14-36); African American GFR (CKD) 76 (>60 ml/min/1.73 sqM); Albumin 3.6 g/dL (3.5-5.0); Alkaline Phosphatase 94 U/L (38-126); Anion Gap 10 mmol/L; Blood Urea Nitrogen 16 mg/dL (7-17); Calcium 9.4 mg/dL (8.4-10.2); Carbon Dioxide 34 mmol/L (22-30); Chloride 94 mmol/L (98-107); Glucose 89 mg/dL (74-99); Non-African American GFR(CKD) 66 (>60 ml/min/1.73 sqM); Potassium 4.1 mmol/L (3.5-5.1); Sodium 138 mmol/L (137-145); Total Bilirubin 0.3 mg/dL (0.2-1.3); Total Protein 8.1 g/dL (6.3-8.2)
[2020-09-08] MEDS: ERTAPENEM 1 GM in SODIUM CHLORIDE 0.9% 50 ML IVPB SCH (17:23)
--- NOTE | 2020-09-08 18:08 | P.CRDCN ---
History of Present Illness History of present illness: HISTORY OF PRESENTING ILLNESS Patient is a pleasant 85 year old female with history of CVA, GERD, dementia, altered mental status, hydronephrosis, s/p uretral stent 08/30/20, restless leg syndrome, right lower lobe consolidation, DEEPAK and HTN. She was recently hospitalized for AMS, sepsis with UTI and proteus bacteremia and had hydronephrosis with uretral stent placement. She was discharged yesterday and sent back to [facility] however pet patient her "breathing was off" and therefore was sent back to the hospital. She felt more SOB and reported to have decreased O2 sats requiring increasing oxygen at [facility] and therefore sent to ER. She denies any chest pain or pressure. CT showed small to moderate right pleural effusion increased in size from prior CT with emphysematous changes and compressive atelectasis. Tiny left pleural effusion. Troponins were 0.087, 0.137, 0.146, proBNP 3930, Coronavirus negative, Cr 0.73, BUN 14, WBC 12.3, Hgb 9.6. Troponins previously normal x 1 08/29. Echo from 09/01/2020 showed EF 50- 55%, moderately enlarged RV, paradoxical septal motion consistent with pressure, overload, moderate to severe TR, RVSP 49. She admits she has never really felt back to normal respiratory gagnon since Covid 1.5 yrs ago. No cardiac history in the past and does not follow in the office with a neurophysiologist. REVIEW OF SYSTEMS At the time of my exam: CONSTITUTIONAL: No fatigue and weakness. Denies fever or chills. CARDIOVASCULAR: Denies chest pain, +shortness of breath, no orthopnea, PND or palpitations. RESPIRATORY: Denies cough. GASTROINTESTINAL: Denies abdominal pain, diarrhea, constipation, nausea or vomiting. MUSCULOSKELETAL: Denies myalgias. NEUROLOGIC: Denies numbness, tingling, headacbe or weakness. ENDOCRINE: Denies fatigue, weight change, polydipsia or polyurina. GENITOURINARY: Denies burning, hematuria or urgency with micturation. HEMATOLOGIC: Denies history of anemia or bleeding. PHYSICAL EXAMINATION Vitals reviewed CONSTITUTIONAL: No apparent distress. HEENT: Head is normocephalic. Pupils are equal, round. Mucous membranes of the mouth are dry. No JVD. No carotid bruit. CHEST EXAMINATION:Decreased breath sounds on the right, mild crackles bilaterally HEART EXAMINATION: Regular rate and rhythm. S1, S2 heard. No murmurs, gallops or rub. ABDOMEN: Soft, Positive bowel sounds. EXTREMITIES: 2+ peripheral pulses, no LE edema NEUROLOGIC EXAMINATION: No focal deficits noted ASSESSMENT 1. Acute on chronic hypoxic respiratory failure 2. Right moderate pleural effusion worse then prior CT 3. Mildly elevated troponins, no obvious angina however does have some dyspnea 4. Acute on chronic diastolic heart failure 5. Pulmonary hypertension RVSP of 49 6. Moderate RV dilation 7. Anemia PLAN Patient with worsened SOB, 1 day after discharge and IVF given during prior hospitalization for DEEPAK. Monitor response of diuresis. Monitor Cr closely. If there is some ambiguity of fluid status may consider right heart cath to assess filling pressures as well as to evaluate degree of pulmonary hypertension. If patient not improving may consider thoracentesis for diagnostic and theraputic purposes. Check limited 2D echo as troponins have increased more since last admission. Past Medical History Past Medical History: CVA/TIA, GERD/Reflux, Hypertension, Memory Impairment, Osteoarthritis (OA), Seizure Disorder, Thyroid Disorder Additional Past Medical History / Comment(s): restless leg syndrome, hemiplegia, hemiparesis, anemia, History of Any Multi-Drug Resistant Organisms: ESBL, MRSA Date of last positivie culture/infection: 08/30/20 ESBL/ MRSA 2008 MDRO Source:: ESBL URINE MRSA STOOL Past Surgical History: Back Surgery, Cholecystectomy Additional Past Surgical History / Comment(s): ileostomy Past Anesthesia/Blood Transfusion Reactions: No Reported Reaction Past Psychological History: Anxiety Additional Psychological History / Comment(s): per pt's daughter Smoking Status: Never smoker Past Alcohol Use History: Unable to Obtain Past Drug Use History: Unable to Obtain Additional Drug Use History / Comment(s): per patient's daughter, 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 - Past Family History Father Family Medical History: Cancer Additional Family Medical History / Comment(s): lung CA Mother Family Medical History: Cancer Sister(s) Additional Family Medical History / Comment(s): emphysema Medications and Allergies Home Medications Medication Instructions Recorded Confirmed Type Aspirin 81 mg PO HS@199909/18/18 09/08/20 History Levothyroxine Sodium [Synthroid] 50 mcg PO DAILY@0500 09/18/18 09/08/20 History Melatonin 3 mg PO HS@199909/18/18 09/08/20 History Sertraline [Zoloft] 100 mg PO DAILY 09/18/18 09/08/20 History Lactulose 30 gm PO BID 06/08/19 09/08/20 History Primidone [Mysoline] 25 mg PO HS@199906/08/19 09/08/20 History Carbidopa-Levodopa 25-100 mg 1 tab PO AC-BID@0700,1300 01/12/20 09/08/20 History [Sinemet 25-100 mg] Mag Hydrox/Aluminum Hyd/Simeth 30 ml PO Q6H PRN 01/12/20 09/08/20 History [Mylanta Maximum Strength Liq] Metoprolol Tartrate [Lopressor] 12.5 mg PO BID@0700,1900 01/12/20 09/08/20 History rOPINIRole HCL [Requip] 0.5 mg PO TID@0700,1300,1900 01/12/20 09/08/20 History Baclofen [Lioresal] 10 mg PO DAILY tab 01/16/20 09/08/20 Rx Benzocaine [Anbesol] 1 applic MUCOUS MEM TID PRN 08/29/20 09/08/20 History Benzocaine/Menthol [Cepacol Sore 1 lozenge MM Q4H PRN 08/29/20 09/08/20 History Throat Lozenge] Pantoprazole Sodium [Protonix] 40 mg PO DAILY 08/29/20 09/08/20 History Simethicone Chew [Mylicon Chew] 80 mg PO AC-TID@07,12,17 08/29/20 09/08/20 History amLODIPine [Norvasc] 10 mg PO DAILY@0500 08/29/20 09/08/20 History levETIRAcetam [Keppra] 500 mg PO BID@0700,1900 08/29/20 09/08/20 History Budesonide [Pulmicort] 0.5 mg INHALATION RT-BID ml 09/07/20 09/08/20 Rx Ertapenem [INVanz] 1 gm IVPB Q24H #8 bag 09/07/20 09/08/20 Rx HYDROcodone/APAP 5-325MG [[place] 1 tab PO Q8H PRN #10 tab 09/07/20 09/08/20 Rx 5-325] Ipratropium-Albuterol Nebulize 3 ml INHALATION RT-QID ml 09/07/20 09/08/20 Rx [Duoneb 0.5 mg-3 mg/3 ml Soln] allopurinoL [Zyloprim] 200 mg PO DAILY tab 09/07/20 09/08/20 Rx traMADol HCL 50 mg PO Q6H #10 tab 09/07/20 09/08/20 Rx Acetaminophen [Tylenol 8 Hour] 650 mg PO Q8H 09/08/20 09/08/20 History Allergies Allergy/AdvReac Type Severity Reaction Status Date / Time amoxicillin [From Augmentin] Allergy Unknown Verified 09/08/20 06:36 clavulanic acid Allergy Unknown Verified 09/08/20 06:36 [From Augmentin] codeine Allergy Unknown Verified 09/08/20 06:36 Physical Exam Vitals: Vital Signs Temp Pulse Pulse Resp BP BP Pulse Ox 09/08/20 15:48 93 09/08/20 15:36 79 09/08/20 13:45 76 18 09/08/20 12:05 85 09/08/20 11:48 85 09/08/20 11:00 76 18 153/83 99 09/08/20 08:58 83 09/08/20 08:47 82 09/08/20 08:20 80 16 09/08/20 08:18 97.7 F 80 16 137/86 96 09/08/20 07:52 79 20 133/82 98 09/08/20 07:00 103 H 19 133/85 97 09/08/20 06:00 96 09/08/20 04:00 93 17 111/65 96 09/08/20 03:25 101 H 18 98 09/08/20 03:01 19 09/08/20 02:59 87 19 118/63 96 09/08/20 02:15 98.5 F 101 H 19 120/100 96 Intake and Output 09/08/20 09/08/20 09/08/20 06:59 14:59 22:59 Intake Total 480 Balance 480 Intake: Oral 480 Other: # Voids 1 Weight 202 kg 202 kg 89.5 kg Results 09/08/20 02:43 09/08/20 08:52 Cardiac Enzymes 09/08/20 09/08/20 09/08/20 Range/Units 02:43 02:43 05:44 AST 24 (14-36) U/L Troponin I 0.087 H* 0.137 H* (0.000-0.034) ng/mL 09/08/20 09/08/20 Range/Units 08:52 08:52 AST 26 (14-36) U/L Troponin I 0.146 H* (0.000-0.034) ng/mL Coagulation 09/08/20 Range/Units 02:43 PT 11.9 (9.0-12.0) sec APTT 23.5 (22.0-30.0) sec CBC 09/08/20 Range/Units 02:43 WBC 12.3 H (3.8-10.6) k/uL RBC 3.19 L (3.80-5.40) m/uL Hgb 9.6 L (11.4-16.0) gm/dL Hct 32.1 L (34.0-46.0) % Plt Count 231 (150-450) k/uL Comprehensive Metabolic Panel 09/08/20 09/08/20 Range/Units 02:43 08:52 Sodium 137 138 (137-145) mmol/L Potassium 3.7 4.1 (3.5-5.1) mmol/L Chloride 93 L 94 L (98-107) mmol/L Carbon Dioxide 37 H 34 H (22-30) mmol/L BUN 14 16 (7-17) mg/dL Creatinine 0.73 0.82 (0.52-1.04) mg/dL Glucose 132 H 89 (74-99) mg/dL Calcium 8.9 9.4 (8.4-10.2) mg/dL AST 24 26 (14-36) U/L ALT 7 <6 (4-34) U/L Alkaline Phosphatase 94 94 (38-126) U/L Total Protein 7.4 8.1 (6.3-8.2) g/dL Albumin 3.3 L 3.6 (3.5-5.0) g/dL Current Medications Generic Name Dose Route Start Last Admin Trade Name Freq PRN Reason Stop Dose Admin Acetaminophen 650 mg 09/08/20 05:00 09/08/20 12:19 Acetaminophen Tab 325 Mg Tab PO 650 mg TID@0500,1300,2100 JACINTO Administration Hydrocodone Bitart/Acetaminophen 1 each 09/08/20 05:00 09/08/20 06:21 Hydrocodone/Apap 5-325mg 1 Each Tab PO 1 each Q8H PRN Administration Pain Al Hydroxide/Mg Hydroxide 30 ml 09/08/20 05:00 Mag Hydrox/Al Hydrox/Simeth 30 Ml Cup PO Q6H PRN Indigestion Albuterol/Ipratropium 3 ml 09/08/20 08:00 09/08/20 15:34 Ipratropium-Albuterol 3 Ml Neb INHALATION 3 ml RT-QID JACINTO Administration Allopurinol 200 mg 09/09/20 09:00 Allopurinol 100 Mg Tab PO DAILY JACINTO Alprazolam 0.25 mg 09/08/20 15:43 Alprazolam 0.25 Mg Tab PO TID PRN Anxiety Amlodipine Besylate 10 mg 09/08/20 05:00 09/08/20 06:56 Amlodipine 10 Mg Tab PO 10 mg DAILY@0500 JACINTO Administration Aspirin 81 mg 09/08/20 20:00 Aspirin 81 Mg PO HS@2000 [facility] Baclofen 10 mg 09/09/20 09:00 Baclofen 10 Mg Tab PO DAILY [facility] Benzocaine 1 gm 09/08/20 15:38 Benzocaine 20 % Gel 15 Gm Tube MM TID PRN MOUTH PAIN Budesonide 0.5 mg 09/08/20 08:00 09/08/20 08:44 Budesonide 0.5 Mg/2 Ml Nebu INHALATION 0.5 mg RT-BID JACINTO Administration Carbidopa/Levodopa 1 each 09/08/20 07:00 09/08/20 12:18 Carbidopa-Levodopa 25-100 Mg 1 Each Tab PO 1 each AC-BID@0700,1300 JACINTO Administration Furosemide 40 mg 09/09/20 00:00 Furosemide 10 Mg/Ml 4 Ml Vial IV Q8HR [facility] Ertapenem 1 gm/ Sodium 50 mls @ 100 mls/hr 09/08/20 16:00 09/08/20 17:23 Chloride IVPB 09/15/20 16:01 100 mls/hr Q24H JACINTO Administration Lactulose 30 gm 09/08/20 09:00 09/08/20 08:27 Lactulose 20 Gm/30 Ml Cup PO Not Given BID [facility] Levetiracetam 500 mg 09/08/20 07:00 09/08/20 17:22 Levetiracetam 500 Mg Tab PO 500 mg BID@0700,1900 JACINTO Administration Levothyroxine Sodium 50 mcg 09/08/20 06:30 09/08/20 06:56 Levothyroxine 50 Mcg Tab PO 50 mcg DAILY@0630 JACINTO Administration Melatonin 3 mg 09/08/20 20:00 Melatonin 3 Mg Tablet PO HS@2000 JACINTO Metoprolol Tartrate 12.5 mg 09/08/20 07:00 09/08/20 17:22 Metoprolol Tartrate 12.5 Mg Tab PO 12.5 mg BID@0700,1900 JACINTO Administration Pantoprazole Sodium 40 mg 09/08/20 07:30 09/08/20 06:56 Pantoprazole 40 Mg Tablet PO 40 mg AC-BRKFST JACINTO Administration Primidone 25 mg 09/08/20 20:00 Primidone 25 Mg Tab PO HS@2000 JACNITO Ropinirole HCl 0.5 mg 09/08/20 07:00 09/08/20 17:22 Ropinirole Hcl 0.25 Mg Tab PO 0.5 mg TID@0700,1300,1900 JACINTO Administration Sertraline HCl 100 mg 09/08/20 09:00 09/08/20 08:27 Sertraline 100 Mg Tab PO Not Given DAILY JACINTO Simethicone 80 mg 09/08/20 07:00 09/08/20 17:23 Simethicone 80 Mg Chewable PO 80 mg AC-TID@07,12,17 JACINTO Administration Sodium Chloride 10 ml 09/08/20 09:00 09/08/20 08:22 Sodium Chloride 0.9% Flush 10 Ml Syringe IV 10 ml BID JACINTO Administration Tramadol HCl 50 mg 09/08/20 05:00 09/08/20 17:22 Tramadol 50 Mg Tab PO 50 mg Q6H JACINTO Administration Intake and Output 09/08/20 09/08/20 09/08/20 06:59 14:59 22:59 Intake Total 480 Balance 480 Intake: Oral 480 Other: # Voids 1 Weight 202 kg 202 kg 89.5 kg Patient Weight 09/09/20 06:59 Weight 89.5 kg 09/08/20 02:43 09/08/20 08:52
[2020-09-08 20:27] LABS: Glucose,Whole Blood 82 mg/dL (75-99)
[2020-09-08] MEDS: ALPRAZolam 0.25 MG TAB PO PRN (20:35)
[2020-09-08] MEDS: ASPIRIN 81 MG PO SCH (20:35)
[2020-09-08] MEDS: MELATONIN 3 MG TABLET PO SCH (20:35)
[2020-09-08] MEDS: PRIMIDONE 25 MG TAB PO SCH (22:01)
[2020-09-08] MEDS: FUROSEMIDE 10 MG/ML 4 ML VIAL IV SCH (23:07)
[2020-09-09] MEDS: HYDROcodone/APAP 5-325MG 1 EACH TAB PO PRN (03:14)
[2020-09-09] MEDS: levETIRAcetam 500 MG TAB PO SCH ×2 (06:04→17:43)
[2020-09-09] MEDS: METOPROLOL TARTRATE 12.5 MG TAB PO SCH ×2 (06:04→17:44)
[2020-09-09] MEDS: amLODIPine 10 MG TAB PO SCH (06:05)
[2020-09-09] MEDS: LEVOTHYROXINE 50 MCG TAB PO SCH (06:05)
[2020-09-09] MEDS: SIMETHICONE 80 MG CHEWABLE PO SCH ×3 (06:05→17:43)
[2020-09-09] MEDS: ACETAMINOPHEN TAB 325 MG TAB PO SCH ×3 (06:05→20:33)
[2020-09-09] MEDS: traMADol 50 MG TAB PO SCH ×4 (06:05→22:57)
[2020-09-09] MEDS: CARBIDOPA-LEVODOPA 25-100 MG 1 EACH TAB PO SCH ×2 (06:11→13:11)
[2020-09-09] MEDS: PANTOPRAZOLE 40 MG TABLET PO SCH (06:34)
[2020-09-09] MEDS: IPRATROPIUM-ALBUTEROL 3 ML NEB INHALATION SCH ×4 (07:51→20:33)
[2020-09-09] MEDS: BUDESONIDE 0.5 MG/2 ML NEBU INHALATION SCH ×2 (08:01→20:33)
--- NOTE | 2020-09-09 08:45 | XR ---
EXAMINATION TYPE: XR chest 1V portable DATE OF EXAM: 09/09/2020 COMPARISON: Chest x-ray and chest CT 09/08/2020 HISTORY: Congestive heart failure TECHNIQUE: Single frontal view of the chest is obtained. FINDINGS: Patient is rotated. No evident pneumothorax. Right hemidiaphragm is elevated. There is fidencio e improvement in the prominence of the pulmonary arteries, aeration. No evident pneumothorax. Aorta i s dense. Cardiac mediastinal silhouette likely stable. There are overlying artifacts. There is underl yaw emphysema. IMPRESSION: There is some improvement in aeration, possibly volume status, pneumonia not excluded, c onsider atelectasis, edema, there is a right pleural effusion.
[2020-09-09] MEDS: SERTRALINE 100 MG TAB PO SCH (09:31)
[2020-09-09] MEDS: ALPRAZolam 0.25 MG TAB PO PRN (09:31)
[2020-09-09] MEDS: FUROSEMIDE 10 MG/ML 4 ML VIAL IV SCH ×3 (09:31→22:57)
[2020-09-09] MEDS: allopurinoL 100 MG TAB PO SCH (09:31)
[2020-09-09] MEDS: BACLOFEN 10 MG TAB PO SCH (09:32)
[2020-09-09] MEDS: LACTULOSE 20 GM/30 ML CUP PO SCH ×2 (09:32→20:32)
--- NOTE | 2020-09-09 09:32 | P.PN ---
Subjective HISTORY OF PRESENTING ILLNESS Patient is a pleasant 85 year old female with history of CVA, GERD, dementia, altered mental status, hydronephrosis, s/p uretral stent 08/30/20, restless leg syndrome, right lower lobe consolidation, DEEPAK and HTN. She was recently hospitalized for AMS, sepsis with UTI and proteus bacteremia and had hydronephrosis with uretral stent placement. She was discharged yesterday and sent back to [facility] however pet patient her "breathing was off" and therefore was sent back to the hospital. She felt more SOB and reported to have decreased O2 sats requiring increasing oxygen at [facility] and therefore sent to ER. She denies any chest pain or pressure. CT showed small to moderate right pleural effusion increased in size from prior CT with emphysematous changes and compressive atelectasis. Tiny left pleural effusion. Troponins were 0.087, 0.137, 0.146, proBNP 3930, Coronavirus negative, Cr 0.73, BUN 14, WBC 12.3, Hgb 9.6. Troponins previously normal x 1 08/29. Echo from 09/01/2020 showed EF 50- 55%, moderately enlarged RV, paradoxical septal motion consistent with pressure, overload, moderate to severe TR, RVSP 49. She admits she has never really felt back to normal respiratory gagnon since Covid 1.5 yrs ago. No cardiac history in the past and does not follow in the office with a rivet catcher. 09/09 Patient seen and examined. Patient denies any chest pain or pressure. 2-D echo limited pending. She is continuing with IV diuresis and states she is feeling better in terms of her shortness breath. REVIEW OF SYSTEMS At the time of my exam: CONSTITUTIONAL: No fatigue and weakness. Denies fever or chills. CARDIOVASCULAR: Denies chest pain, +shortness of breath, no orthopnea, PND or palpitations. RESPIRATORY: Denies cough. GASTROINTESTINAL: Denies abdominal pain, diarrhea, constipation, nausea or vomiting. MUSCULOSKELETAL: Denies myalgias. NEUROLOGIC: Denies numbness, tingling, headacbe or weakness. ENDOCRINE: Denies fatigue, weight change, polydipsia or polyurina. GENITOURINARY: Denies burning, hematuria or urgency with micturation. HEMATOLOGIC: Denies history of anemia or bleeding. PHYSICAL EXAMINATION Vitals reviewed CONSTITUTIONAL: No apparent distress. HEENT: Head is normocephalic. Pupils are equal, round. Mucous membranes of the mouth are dry. No JVD. No carotid bruit. CHEST EXAMINATION:Decreased breath sounds on the right, mild crackles bilaterally HEART EXAMINATION: Regular rate and rhythm. S1, S2 heard. No murmurs, gallops or rub. ABDOMEN: Soft, Positive bowel sounds. EXTREMITIES: 2+ peripheral pulses, no LE edema NEUROLOGIC EXAMINATION: No focal deficits noted ASSESSMENT 1. Acute on chronic hypoxic respiratory failure 2. Right moderate pleural effusion worse then prior CT 3. Mildly elevated troponins, no obvious angina however does have some dyspnea 4. Acute on chronic diastolic heart failure 5. Pulmonary hypertension RVSP of 49 6. Moderate RV dilation 7. Anemia PLAN Check limited 2-D echo. Continue with IV diuresis. Monitor creatinine closely. If worsening kidney function or some ambiguity may consider right heart catheterization and may also consider thoracentesis for right-sided pleural effusion however continue with diuresis for now. Continue with supportive care. Objective - Vital Signs Vital signs: Vital Signs Temp 97.8 F 09/09/20 03:17 Pulse 75 09/09/20 08:17 Resp 15 09/09/20 03:17 BP 172/80 09/09/20 03:17 Pulse Ox 97 09/09/20 03:17 Intake & Output 09/08/20 09/09/20 09/09/20 18:59 06:59 18:59 Intake Total 480 550 240 Output Total 600 Balance 480 -50 240 Weight 89.5 kg 94 kg Intake: Oral 480 550 240 Output: Urine 300 Stool 300 Other: Voiding Method External Catheter # Voids 1 - Labs CBC & Chem 7: 09/08/20 02:43 09/08/20 08:52 Labs: Abnormal Lab Results - Last 24 Hours (Table) 09/08/20 09/08/20 09/08/20 Range/Units 08:52 08:52 11:46 Chloride 94 L (98-107) mmol/L Carbon Dioxide 34 H (22-30) mmol/L POC Glucose (mg/dL) 120 H (75-99) mg/dL Magnesium (1.6-2.3) mg/dL Troponin I 0.146 H* (0.000-0.034) ng/mL 09/09/20 Range/Units 07:45 Chloride (98-107) mmol/L Carbon Dioxide (22-30) mmol/L POC Glucose (mg/dL) (75-99) mg/dL Magnesium 1.3 L (1.6-2.3) mg/dL Troponin I (0.000-0.034) ng/mL
[2020-09-09 09:53] LABS: Basophils % (A) 0 %; Eosinophils # (A) 0.3 k/uL (0-0.7); Eosinophils % (A) 4 %; HCT 31.3 % (34.0-46.0); HGB 9.6 gm/dL (11.4-16.0); Hypochromasia Slight; Lymphocytes # (A) 1.2 k/uL (1.0-4.8); Lymphocytes % (A) 18 %; MCH 30.4 pg (25.0-35.0); MCHC 30.6 g/dL (31.0-37.0); MCV 99.3 fL (80.0-100.0); Macrocytosis Slight; Mean Platelet Volume 10.3; Monocytes # (A) 0.4 k/uL (0-1.0); Monocytes % (A) 6 %; Neutrophils # (A) 4.7 k/uL (1.3-7.7); Neutrophils % (A) 70 %; Platelet Count 206 k/uL (150-450); RBC 3.15 m/uL (3.80-5.40); WBC 6.7 k/uL (3.8-10.6)
--- NOTE | 2020-09-09 10:42 | CONS ---
CONSULTATION DATE OF SERVICE: 09/08/2020. REASON FOR CONSULTATION: ESBL and Proteus mirabilis bacteremia, UTI. HISTORY OF PRESENT ILLNESS: The patient is an 85-year-old female who was recently admitted to this facility. The patient was treated for ESBL and Proteus mirabilis UTI and bacteremia. The patient has been on IV Invanz. Patient did get a Midline yesterday and was subsequently discharged to the [facility] on IV Invanz 1 gram daily for another 8 days to finish a total 2 week course of therapy from negative blood cultures. The patient was afebrile and she was breathing comfortably and did not have any respiratory symptoms. The patient has been brought back to [facility] fitness management director with concern for shortness of breath, which apparently started when she was at the [facility]. The patient denies having any chest pain. The patient did have a cough which has been dry in nature and mild. The patient denies having any fever or chills. Denies having any headache. No URI symptoms. Shortness of breath is mild with no chest pain. No nausea, no vomiting. No abdominal pain or any diarrhea. On presentation to the hospital, the patient was afebrile. The patient is currently saturating 96% on 3 L nasal cannula and she was 96% on arrival to the ER. Patient did have a white count of 12.3. Creatinine was normal. Troponins mildly elevated. Faulkner PCR was negative. The patient did have a CT of the chest with evidence of bilateral effusion mostly on the right side with some compressive atelectasis, cardiomegaly. The patient has been continued on ertapenem. Infectious Disease was consulted for further management. REVIEW OF SYSTEMS: Positive points have been mentioned in HPI. Rest of systems are negative. PAST MEDICAL HISTORY: Recurrent urinary tract infection with recent Proteus mirabilis bacteremia and UTI, CVA, TIA, gastroesophageal reflux disease, hypertension, osteoarthritis, seizure disorder, hypothyroidism. PAST SURGICAL HISTORY: Ileostomy, cholecystectomy and back surgery. SOCIAL HISTORY: No history of smoking, drinking or drug use. FAMILY HISTORY: Father with history of lung cancer. Sister with history of emphysema. ALLERGIES: Allergies to AUGMENTIN and CODEINE. MEDICATIONS: Medications include the patient is currently on Tylenol, [place], Maalox, DuoNeb, Zyloprim, Xanax, Norvasc, aspirin, baclofen, ertapenem 1 gram daily, Lasix, lactulose, Keppra, Synthroid, melatonin, Lopressor, Protonix, Requip, Zoloft. PHYSICAL EXAMINATION: Blood pressure is 124/70 with a pulse of 75, temperature 98.1. She is 96% on 3 L nasal cannula. General description is an elderly female lying in bed in no distress. No tachypnea or accessory muscles of respiration use. HEENT: Examination shows pallor, no scleral icterus. Oral mucous membrane is dry. NECK: Trachea central. No thyromegaly. LUNGS: Unlabored breathing, decreased breath sounds at the base. No wheeze or crackles. HEART S1, S2. Regular rate and rhythm. ABDOMEN: Soft, no tenderness. No guarding or rigidity. EXTREMITIES: Some trace edema of feet. SKIN EXAMINATION: No rash or mass palpable. NEUROLOGICAL: Patient is awake, alert, oriented x3. Mood and affect normal. LABS: Hemoglobin 9.6, white count 12.3, BUN of 16, creatinine 0.82. Electrolytes have been normal. Liver enzymes are normal. Troponins are elevated. Faulkner PCR was negative. CT report as mentioned above. DIAGNOSTIC IMPRESSION: 1. Patient presented to the hospital with increasing shortness of breath, more likely underlying cardiac etiology in this patient did have elevated troponin with cardiomegaly and bilateral pleural effusion, right greater than left. Clinically not behaving as pneumonia and faulkner PCR has been negative. 2. Patient with ESBL Proteus mirabilis urinary tract infection and bacteremia for which the patient is currently on ertapenem. PLAN: 1. Patient to continue the ertapenem 1 gram daily to finish a total 2 week course of therapy following negative blood culture. 2. Manage and elevated troponin per admitting and Cardiology team. 3. We will follow on clinical condition to further adjust medication if needed. Thank you for this consultation. Will follow this patient along with you. MMODL / IJN: [id number] /
[2020-09-09 14:16] LABS: Appearance,Urine Clear (Clear); Bacteria,Urine Occasional /hpf; Bilirubin,Urine Negative (Negative); Blood,Urine Large (Negative); Color,Urine Light Yellow; Glucose,Urine (UA) Negative (Negative); Ketones,Urine Negative (Negative); Leukocyte Esterase,Urine Large (Negative); Nitrite,Urine Negative (Negative); Protein,Urine Trace (Negative); RBC,Urine 108 /hpf (0-5); Squamous Epithelial Cell,Urine 1 /hpf (0-4); Urobilinogen,Urine <2.0 mg/dL (<2.0); WBC,Urine 33 /hpf (0-5)
[2020-09-09] MEDS ORDERED: IOPAMIDOL CONTRAST (ORAL USE) VIAL PO PRN (14:36)
[2020-09-09] MEDS ORDERED: Potassium Replacement Protocol 1 EACH MISC MISCELLANE PRN ×2 (14:39→16:34)
[2020-09-09] MEDS ORDERED: Magnesium Replacement Protocol 1 EACH MISC MISCELLANE PRN (14:39)
--- NOTE | 2020-09-09 15:25 | US ---
EXAMINATION TYPE: US chest DATE OF EXAM: 09/09/2020 COMPARISON: CT 09/08/2020 CLINICAL HISTORY: bilateral pleural effusion . TECHNIQUE: Targeted ultrasound of the posterior lower bilateral hemithoraces EXAM MEASUREMENTS: Right Pleural Effusion pocket size: 3.3 cm Right skin surface to fluid distance: 2.9 cm Left Pleural Effusion pocket size: 1.1 cm Right side marked for possible thoracentesis outside the dept. Left side NOT marked for possible thoracentesis outside the dept due to low fluid pocket. Pulmonologists are able to review the images in the patient?s EMR. IMPRESSIONS: Bilateral pleural effusions right greater than left
--- NOTE | 2020-09-09 15:30 | PN ---
PROGRESS NOTE DATE OF SERVICE: 09/09/2020 INTERVAL HISTORY: This is an 85-year-old woman who was admitted with CHF acute exacerbation. Also has a right pleural effusion which is increased compared to the previous x-ray. The patient also had abnormal UTI. The patient is on broad-spectrum IV antibiotics. PAST MEDICAL HISTORY: Reviewed. REVIEW OF SYMPTOMS: CARDIOVASCULAR: No angina. RESPIRATORY: As mentioned earlier. GI: As mentioned earlier. : No dysuria. NERVOUS SYSTEM: No numbness or weakness. MEDICATIONS: Reviewed include Tylenol, [place], Maalox, zyloprim, Xanax, Norvasc, aspirin. Doses are reviewed. PHYSICAL EXAMINATION: GENERAL: Patient is alert and oriented times three. VITAL SIGNS: Pulse 72, blood pressure 149/60, respirations 16, normal, pulse ox 96% on 3 liters. HEENT: Conjunctivae normal. NECK: No jugular venous distention. No carotid bruits. RESPIRATORY: Breath sounds diminished at the bases. A few scattered rhonchi and crackles. HEART: S1 and S2, muffled. ABDOMEN: Soft, obese, no tenderness. EXTREMITIES: No edema, no swelling. NERVOUS: No focal deficits. LAB: Hemoglobin 9.6, magnesium 1.6. ASSESSMENT: 1. Shortness of breath, possibly congestive heart failure acute exacerbation with acute on chronic diastolic dysfunction ejection fraction 50-55%. 2. Troponin elevated up to 0.146, rule out acute [id number]-YR-[id number]-elevation myocardial infarction. 3. Right pleural effusion. 4. History of recent ESBL Proteus bacteremia and urinary tract infection. 5. Possible right lower lobe pneumonia with right pleural effusion. 6. Increased WBC. 7. Increased MCV. 8. Anemia, chronic of undetermined etiology. 9. History of cerebrovascular accident, transient ischemic attack. 10.Gastroesophageal reflux disease. 11.Hypertension. 12.History of dementia. 13.Degenerative joint disease. 14.History of seizure disorder. 15.Hypothyroidism. 16.Restless legs syndrome. 17.History of hemiplegia. 18.History of hemiparesis. 19.History of MRSA. 20.History of anxiety. 21.Obesity with body mass index 74.1. 22.Hypomagnesemia. RECOMMENDATIONS AND DISCUSSION: In this 85-year-old woman who presented with multiple complex medical issues, the patient is started on IV Lasix. The patient is diuresing but however the x-ray showed persistent pleural effusion. At this time I recommend evaluation by Pulmonary and repeat labs. Supplement magnesium. Also recommend pulmonary consultation Dr. Canales. The prognosis is guarded because of multiple complex medical issues. Further recommendations to follow. MMODL / IJN: [id number] /
--- NOTE | 2020-09-09 15:43 | PN ---
PROGRESS NOTE DATE OF SERVICE: 09/09/2020 REASON FOR FOLLOWUP: Proteus mirabilis UTI and bacteremia. INTERVAL HISTORY: The patient is currently afebrile. The patient is breathing more comfortably. The patient denies having any chest pain, shortness breath or cough. No abdominal pain or diarrhea. PHYSICAL EXAMINATION: Blood pressure 139/65, pulse of 72, temperature 98.1. She is 96% on 3 L nasal cannula. General description is an elderly female lying in bed in no distress. RESPIRATORY SYSTEM: Unlabored breathing. Clear to auscultation anteriorly. HEART: S1, S2. Regular rate and rhythm. ABDOMEN: Soft. No tenderness. LABS: Hemoglobin is 9.6, white count 6.7. Repeat UA is slightly positive. DIAGNOSTIC IMPRESSION AND PLAN: Patient with Proteus mirabilis urinary tract infection and bacteremia, covered with ertapenem more likely [place]o colonization. [place] catheter should be changed. No need for further adjustment of antibiotic at this point. Continue supportive care. MMODL / IJN: [id number] /
[2020-09-09 16:04] LABS: ALT <6 U/L (4-34); AST 23 U/L (14-36); African American GFR (CKD) >90 (>60 ml/min/1.73 sqM); Albumin 3.4 g/dL (3.5-5.0); Alkaline Phosphatase 95 U/L (38-126); Blood Urea Nitrogen 17 mg/dL (7-17); Calcium 8.9 mg/dL (8.4-10.2); Chloride 88 mmol/L (98-107); Glucose 167 mg/dL (74-99); Non-African American GFR(CKD) 85 (>60 ml/min/1.73 sqM); Potassium 3.4 mmol/L (3.5-5.1); Sodium 136 mmol/L (137-145); Total Bilirubin 0.3 mg/dL (0.2-1.3); Total Protein 7.4 g/dL (6.3-8.2)
[2020-09-09 16:10] LABS: Anion Gap 9 mmol/L; Carbon Dioxide 39 mmol/L (22-30)
--- NOTE | 2020-09-09 16:23 | P.CNPUL ---
History of Present Illness Consult date: 09/09/20 Reason for consult: pleural effusion Chief complaint: Shortness of breath History of present illness: This is an 85-year-old female with history of multiple medical problems including previous CVA, dementia, hydronephrosis, history of ureteral stent placement on 08/30/2020, history of hypertension, patient was recently hospitalized for sepsis, urinary tract infection secondary to Proteus mirabilis, and she had Proteus mirabilis bacteremia. This was secondary to urinary tract infection, and I believe it was ESBL Proteus mirabilis. Patient was discharged home on 09/07/2020, however while at the medical [place], patient was complaining of shortness of breath, but no cough, no fever, no chills, no hemoptysis, and her O2 saturation was noted to be dropping. Patient was seen in the ER, and her CT of the chest showed small right-sided pleural effusion, associated right basilar atelectasis, troponins where slightly elevated, and her BNP level was elevated almost 4000. Patient was admitted, and this consult was initiated. Echocardiogram from the last admission showed good LV function but it did show moderately enlarged right ventricle, moderate severe tricuspid regurgitation, and right-sided pulmonary hypertension with RVSP of 49. Patient tested negative for COVID-19. Considering the findings and her abnormal chest x-ray and CT of the chest, this consult was initiated. I reviewed the CT of the chest on this patient yesterday, and I recommended aggressive diuresis, follow-up chest x-ray today showed significant improvement with very minimal pleural effusion on the right side compared to the chest x-ray on admission, an ultrasound showed only a 3.0 cm pocket on the right side, and a small tiny pocket of fluid on the left side. Neither one is large enough to perform safe thoracentesis. Hence I will recommend that we continue diuretics, as the presentation seems to be more of a presentation of congestive heart failure and bilateral pleural effusions responding overnight to diuresis. Not to mention the patient had elevated BNP level on admission. Looking at her urinalysis, patient seems to have evidence of urinary tract infection, and final culture is pending, I would not be surprised if the cultures come back positive for Proteus mirabilis again. May have to be seen by infectious disease for her ESBL infection. Review of Systems CONSTITUTIONAL: Negative. CARDIOVASCULAR: Negative. RESPIRATORY: As noted in HPI. GASTROINTESTINAL: Negative. MUSCULOSKELETAL: Negative. NEUROLOGIC: Negative. ENDOCRINE: Negative GENITOURINARY: Negative HEMATOLOGIC: Negative Psychiatric: Negative. Skin: Negative Past Medical History Past Medical History: CVA/TIA, GERD/Reflux, Hypertension, Memory Impairment, Osteoarthritis (OA), Seizure Disorder, Thyroid Disorder Additional Past Medical History / Comment(s): restless leg syndrome, hemiplegia, hemiparesis, anemia, History of Any Multi-Drug Resistant Organisms: ESBL, MRSA Date of last positivie culture/infection: 08/30/20 ESBL/ MRSA 2008 MDRO Source:: ESBL URINE MRSA STOOL Past Surgical History: Back Surgery, Cholecystectomy Additional Past Surgical History / Comment(s): ileostomy Past Anesthesia/Blood Transfusion Reactions: No Reported Reaction Past Psychological History: Anxiety Additional Psychological History / Comment(s): per pt's daughter Smoking Status: Never smoker Past Alcohol Use History: Unable to Obtain Past Drug Use History: Unable to Obtain Additional Drug Use History / Comment(s): per patient's daughter, 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 - Past Family History Father Family Medical History: Cancer Additional Family Medical History / Comment(s): lung CA Mother Family Medical History: Cancer Sister(s) Additional Family Medical History / Comment(s): emphysema Medications and Allergies Home Medications Medication Instructions Recorded Confirmed Type Aspirin 81 mg PO HS@199909/18/18 09/08/20 History Levothyroxine Sodium [Synthroid] 50 mcg PO DAILY@0500 09/18/18 09/08/20 History Melatonin 3 mg PO HS@199909/18/18 09/08/20 History Sertraline [Zoloft] 100 mg PO DAILY 09/18/18 09/08/20 History Lactulose 30 gm PO BID 06/08/19 09/08/20 History Primidone [Mysoline] 25 mg PO HS@199906/08/19 09/08/20 History Carbidopa-Levodopa 25-100 mg 1 tab PO AC-BID@0700,1300 01/12/20 09/08/20 History [Sinemet 25-100 mg] Mag Hydrox/Aluminum Hyd/Simeth 30 ml PO Q6H PRN 01/12/20 09/08/20 History [Mylanta Maximum Strength Liq] Metoprolol Tartrate [Lopressor] 12.5 mg PO BID@0700,1900 01/12/20 09/08/20 History rOPINIRole HCL [Requip] 0.5 mg PO TID@0700,1300,1900 01/12/20 09/08/20 History Baclofen [Lioresal] 10 mg PO DAILY tab 01/16/20 09/08/20 Rx Benzocaine [Anbesol] 1 applic MUCOUS MEM TID PRN 08/29/20 09/08/20 History Benzocaine/Menthol [Cepacol Sore 1 lozenge MM Q4H PRN 08/29/20 09/08/20 History Throat Lozenge] Pantoprazole Sodium [Protonix] 40 mg PO DAILY 08/29/20 09/08/20 History Simethicone Chew [Mylicon Chew] 80 mg PO AC-TID@07,12,17 08/29/20 09/08/20 History amLODIPine [Norvasc] 10 mg PO DAILY@0500 08/29/20 09/08/20 History levETIRAcetam [Keppra] 500 mg PO BID@0700,1900 08/29/20 09/08/20 History Budesonide [Pulmicort] 0.5 mg INHALATION RT-BID ml 09/07/20 09/08/20 Rx Ertapenem [INVanz] 1 gm IVPB Q24H #8 bag 09/07/20 09/08/20 Rx HYDROcodone/APAP 5-325MG [Helen 1 tab PO Q8H PRN #10 tab 09/07/20 09/08/20 Rx 5-325] Ipratropium-Albuterol Nebulize 3 ml INHALATION RT-QID ml 09/07/20 09/08/20 Rx [Duoneb 0.5 mg-3 mg/3 ml Soln] allopurinoL [Zyloprim] 200 mg PO DAILY tab 09/07/20 09/08/20 Rx traMADol HCL 50 mg PO Q6H #10 tab 09/07/20 09/08/20 Rx Acetaminophen [Tylenol 8 Hour] 650 mg PO Q8H 09/08/20 09/08/20 History Allergies Allergy/AdvReac Type Severity Reaction Status Date / Time amoxicillin [From Augmentin] Allergy Unknown Verified 09/08/20 06:36 clavulanic acid Allergy Unknown Verified 09/08/20 06:36 [From Augmentin] codeine Allergy Unknown Verified 09/08/20 06:36 Physical Exam Vitals: Vital Signs Temp Pulse Pulse Resp BP Pulse Ox 09/09/20 15:58 64 09/09/20 15:49 52 L 09/09/20 15:28 98.6 F 61 18 151/99 95 09/09/20 13:26 98.1 F 72 17 139/65 96 09/09/20 11:08 98.2 F 72 16 149/67 96 09/09/20 08:17 75 09/09/20 08:04 70 09/09/20 08:00 98.3 F 62 18 162/84 96 09/09/20 03:17 97.8 F 67 15 172/80 97 09/09/20 02:11 18 09/08/20 23:18 98.1 F 75 18 124/70 96 09/08/20 21:37 88 09/08/20 21:30 80 09/08/20 19:50 98.4 F 77 18 191/84 95 09/08/20 17:54 98.5 F 78 18 177/81 95 Intake and Output 09/09/20 09/09/20 09/09/20 06:59 14:59 22:59 Intake Total 550 480 Output Total 600 1425 Balance -50 -945 Intake: Oral 550 480 Output: Urine 300 1275 Stool 300 150 Other: Voiding Method External Catheter Weight 94 kg Physical Exam revealed 85-year-old female in no distress, on 3 L nasal cannula. Her O2 saturations 95% Head: Atraumatic, normocephalic. HEENT:[Neck is supple.] [No neck masses.] [No thyromegaly.] [No JVD.] Chest: [Symmetrical chest expansion, crackles on the right base. No rhonchi and no wheezes..] Cardiac Exam: Normal S1 and S2, no S3 gallop, 2/6 systolic murmur thought the precordium. Abdomen: [Obese, Soft, nontender, no megaly, no rebound, no guarding, normal bowel sounds.] Extremities: [No clubbing, trace of edema, no cyanosis.] Neurological Exam: Awake, not a great historian, follows simple instructions, no gross focal deficit otherwise. Psychiatric: Normal mood, affect, and slightly confused mental status. Skin: No rashes. Results - Laboratory Findings CBC and BMP: 09/09/20 07:45 09/08/20 08:52 PT/INR, D-dimer PT 11.9 sec (9.0-12.0) 09/08/20 02:43 INR 1.1 (<1.2) 09/08/20 02:43 Abnormal lab findings: Abnormal Labs 09/08/20 09/08/20 09/08/20 02:43 02:43 02:43 WBC 12.3 H RBC 3.19 L Hgb 9.6 L Hct 32.1 L MCV 100.6 H MCHC 30.0 L Neutrophils # 10.6 H Lymphocytes # 0.8 L Chloride 93 L Carbon Dioxide 37 H Glucose 132 H POC Glucose (mg/dL) Magnesium Troponin I 0.087 H* Albumin 3.3 L Urine Protein Urine Blood Ur Leukocyte Esterase Urine RBC Urine WBC Urine Bacteria 09/08/20 09/08/20 09/08/20 05:44 08:52 08:52 WBC RBC Hgb Hct MCV MCHC Neutrophils # Lymphocytes # Chloride 94 L Carbon Dioxide 34 H Glucose POC Glucose (mg/dL) Magnesium Troponin I 0.137 H* 0.146 H* Albumin Urine Protein Urine Blood Ur Leukocyte Esterase Urine RBC Urine WBC Urine Bacteria 09/08/20 09/09/20 09/09/20 11:46 07:45 07:45 WBC RBC 3.15 L Hgb 9.6 L Hct 31.3 L MCV MCHC 30.6 L Neutrophils # Lymphocytes # Chloride Carbon Dioxide Glucose POC Glucose (mg/dL) 120 H Magnesium 1.3 L Troponin I Albumin Urine Protein Urine Blood Ur Leukocyte Esterase Urine RBC Urine WBC Urine Bacteria 09/09/20 12:09 WBC RBC Hgb Hct MCV MCHC Neutrophils # Lymphocytes # Chloride Carbon Dioxide Glucose POC Glucose (mg/dL) Magnesium Troponin I Albumin Urine Protein Trace H Urine Blood Large H Ur Leukocyte Esterase Large H Urine RBC 108 H Urine WBC 33 H Urine Bacteria Occasional H - Diagnostic Findings Chest x-ray: image reviewed (As noted in HPI.) CT scan - chest: image reviewed Additional studies: Ultrasound of the chest was reviewed, and there is no evidence of significant pleural effusion to consider safe thoracentesis. Assessment and Plan Assessment: Impression: Acute on chronic hypoxic respiratory failure. Secondary mostly to bilateral pleural effusions right more so than left, suspect acute on chronic diastolic congestive heart failure. Acute on chronic diastolic congestive heart failure. ESBL Proteus mirabilis/urinary tract infection. Pulmonary hypertension. Chronic anemia. Benign essential hypertension. History of seizure disorder. Degenerative joint disease. History of CVA/TIA. Recurrent urinary tract infection. Recommendation: Continue diuretics. Chest x-ray today showed significant improvement compared the chest x-ray on admission. And obviously the patient is responding to diuretics. Incentive spirometry. Will not recommend thoracentesis after reviewing the ultrasound of the chest. Strongly recommend infectious disease consultation for her recurrent Proteus mirabilis infection in the urine/ESBL. Patient may need to be on [place]. Continue to monitor daily electrolytes and renal profile while on high-dose of diuretics. We'll continue to follow. Time with Patient: Greater than 30
[2020-09-09] MEDS: ERTAPENEM 1 GM in SODIUM CHLORIDE 0.9% 50 ML IVPB SCH (17:43)
[2020-09-09] MEDS: POTASSIUM CHLORIDE ER 20 MEQ TAB.ER PO SCH ×2 (17:44→18:44)
--- NOTE | 2020-09-09 18:40 | CT ---
EXAMINATION TYPE: CT abdomen pelvis wo con DATE OF EXAM: 09/09/2020 COMPARISON: Same day CT chest HISTORY: Nephrolithiasis. CT DLP: 1116.6 mGycm Automated exposure control for dose reduction was used. TECHNIQUE: Helical acquisition of images was performed from the lung bases through the pelvis withou t administration of intravenous contrast. Lack of intravenous contrast limits evaluation of abdominal pelvic viscera and vasculature. CONTRAST: Performed with Oral Contrast and without intravenous contrast. FINDINGS: LUNG BASES: Bilateral pleural effusions. Atelectasis of the right lower lobe and right middle lobe. T here are cystic changes of the left lung base. There is beam hardening and motion artifact of the upper abdomen. LIVER: Calcified granuloma. BILIARY SYSTEM: Patient appears status post cholecystectomy. PANCREAS: No peripancreatic stranding or fluid collection. SPLEEN: Not enlarged. ADRENALS: Normal. KIDNEYS: There is motion artifact of the kidneys. There are bilateral coiled ureteral stents. Right u reteral stent proximally coiled over the renal collecting system. Left ureteral stent proximally coil ed over the ureteropelvic junction. Distally both coils are within the urinary bladder. There is mode rate bilateral hydroureteronephrosis. No urolithiasis is seen. BOWEL: There is some hyperdense fecal debris within the rectal vault. Patient is status post colecto my of the ascending, transverse, and descending colon. The anastomosis at the proximal sigmoid colon appears intact. There is a right lower quadrant ileostomy with a herniated loop of nonobstructed non thickened small bowel. There is no evidence of bowel obstruction. PERITONEUM: No pneumoperitoneum. No free fluid. LYMPH NODES: No lymphadenopathy. PELVIS: Urinary bladder unremarkable. Status post hysterectomy. Pelvic phleboliths. VASCULATURE: Abdominal aorta normal in caliber with marked calcified atherosclerotic disease. MUSCULOSKELETAL: Intrathecal spinal stimulator device with battery pack within the right lateral abd omen. There is anasarca and skin thickening of the right lateral abdomen. Dystrophic calcifications o f the bilateral flanks likely sequela of old trauma or injections. Postsurgical changes of the lumbar spine with left hemilaminectomies at multiple levels. There is decreased osseous mineralization in t he range of osteoporosis. Multiple mild compression fracture deformities of the thoracolumbar spine u nchanged versus 08/29/2020. IMPRESSION: 1. Bilateral coiled ureteral stents with moderate bilateral hydroureteronephrosis. Right proximal travis nt coiled over the renal pelvis. Left proximal stent coiled over the ureteropelvic junction. Both dis william coils are within the urinary bladder. No urolithiasis. 2. Additional findings as above.
[2020-09-09] MEDS: PRIMIDONE 25 MG TAB PO SCH (20:33)
[2020-09-09] MEDS: MELATONIN 3 MG TABLET PO SCH (20:33)
[2020-09-09] MEDS: ASPIRIN 81 MG PO SCH (20:33)
[2020-09-09] MEDS: MAG HYDROX/AL HYDROX/SIMETH 30 ML CUP PO PRN (20:50)
[2020-09-10] MEDS: HYDROcodone/APAP 5-325MG 1 EACH TAB PO PRN (03:26)
[2020-09-10] MEDS: MAG HYDROX/AL HYDROX/SIMETH 30 ML CUP PO PRN ×2 (03:56→22:15)
[2020-09-10] MEDS: LEVOTHYROXINE 50 MCG TAB PO SCH (06:10)
[2020-09-10] MEDS: METOPROLOL TARTRATE 12.5 MG TAB PO SCH ×2 (06:10→18:11)
[2020-09-10] MEDS: PANTOPRAZOLE 40 MG TABLET PO SCH (06:10)
[2020-09-10] MEDS: SIMETHICONE 80 MG CHEWABLE PO SCH ×3 (06:10→16:35)
[2020-09-10] MEDS: traMADol 50 MG TAB PO SCH ×4 (06:11→22:10)
[2020-09-10] MEDS: CARBIDOPA-LEVODOPA 25-100 MG 1 EACH TAB PO SCH ×2 (06:11→12:02)
[2020-09-10] MEDS: levETIRAcetam 500 MG TAB PO SCH ×2 (06:11→18:11)
[2020-09-10] MEDS: ACETAMINOPHEN TAB 325 MG TAB PO SCH ×3 (06:11→21:16)
[2020-09-10] MEDS: amLODIPine 10 MG TAB PO SCH (06:11)
[2020-09-10] MEDS: IPRATROPIUM-ALBUTEROL 3 ML NEB INHALATION SCH ×4 (07:49→20:51)
[2020-09-10] MEDS: BUDESONIDE 0.5 MG/2 ML NEBU INHALATION SCH ×2 (07:49→20:51)
[2020-09-10] MEDS: ALPRAZolam 0.25 MG TAB PO PRN (09:08)
[2020-09-10] MEDS: SERTRALINE 100 MG TAB PO SCH (09:09)
[2020-09-10] MEDS: allopurinoL 100 MG TAB PO SCH (09:09)
[2020-09-10] MEDS: BACLOFEN 10 MG TAB PO SCH (09:09)
[2020-09-10] MEDS: FUROSEMIDE 10 MG/ML 4 ML VIAL IV SCH ×3 (09:10→23:11)
[2020-09-10] MEDS: LACTULOSE 20 GM/30 ML CUP PO SCH ×2 (09:10→21:19)
--- NOTE | 2020-09-10 10:04 | ECHOF ---
Referral Reason:re: new NSTEMI MEASUREMENTS -------- HEIGHT: 165.1 cm WEIGHT: 93.9 kg BP: 172/80 RVIDd: 3.5 cm (< 3.3) Ao Diam: 2.9 cm (2.0 - 3.7) AV Cusp: 1.9 cm (1.5 - 2.6) RAP: 15.00 mmHg RVSP: 51.44 mmHg FINDINGS -------- Atrial fibrillation. Limited Study Overall left ventricular systolic function is low-normal with, an EF between 50 - 55 %. Mid inferos eptal LV wall motion is hypokinetic. The right ventricle is mildly enlarged. Mild tricuspid regurgitation present. There is moderate pulmonary hypertension. The right ventric ular systolic pressure, as measured by Doppler, is 51.44mmHg. CONCLUSIONS -------- 1. Limited Study 2. Overall left ventricular systolic function is low-normal with, an EF between 50 - 55 %. 3. Mid inferoseptal LV wall motion is hypokinetic. 4. The right ventricle is mildly enlarged. 5. Mild tricuspid regurgitation present. 6. There is moderate pulmonary hypertension. 7. The right ventricular systolic pressure, as measured by Doppler, is 51.44mmHg. STRUCTURAL TEST ENGINEER: Angelica Olivas RDCS
--- NOTE | 2020-09-10 11:18 | P.PN ---
Subjective HISTORY OF PRESENTING ILLNESS Patient is a pleasant 85 year old female with history of CVA, GERD, dementia, altered mental status, hydronephrosis, s/p uretral stent 08/30/20, restless leg syndrome, right lower lobe consolidation, DEEPAK and HTN. She was recently hospitalized for AMS, sepsis with UTI and proteus bacteremia and had hydronephrosis with uretral stent placement. She was discharged yesterday and sent back to [facility] however pet patient her "breathing was off" and therefore was sent back to the hospital. She felt more SOB and reported to have decreased O2 sats requiring increasing oxygen at [facility] and therefore sent to ER. She denies any chest pain or pressure. CT showed small to moderate right pleural effusion increased in size from prior CT with emphysematous changes and compressive atelectasis. Tiny left pleural effusion. Troponins were 0.087, 0.137, 0.146, proBNP 3930, Coronavirus negative, Cr 0.73, BUN 14, WBC 12.3, Hgb 9.6. Troponins previously normal x 1 08/29. Echo from 09/01/2020 showed EF 50- 55%, moderately enlarged RV, paradoxical septal motion consistent with pressure, overload, moderate to severe TR, RVSP 49. She admits she has never really felt back to normal respiratory gagnon since Covid 1.5 yrs ago. 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 09/09 Patient seen and examined. Patient denies any chest pain or pressure. 2-D echo limited pending. She is continuing with IV diuresis and states she is feeling better in terms of her shortness breath. 09/10 Echo performed which showed ejection fraction 50-55%, inferior hypokinesis. Patient has been responding to IV diuresis and chest x-ray improved. Pulmonary evaluated patient without much fluid on ultrasound to perform thoracentesis. Additionally she had a CAT scan abdomen and pelvis for her UTI, ureteral stents. She states her shortness breath. Denies chest pain. REVIEW OF SYSTEMS At the time of my exam: CONSTITUTIONAL: No fatigue and weakness. Denies fever or chills. CARDIOVASCULAR: Denies chest pain, +shortness of breath, no orthopnea, PND or palpitations. RESPIRATORY: Denies cough. GASTROINTESTINAL: Denies abdominal pain, diarrhea, constipation, nausea or vomiting. MUSCULOSKELETAL: Denies myalgias. NEUROLOGIC: Denies numbness, tingling, headacbe or weakness. ENDOCRINE: Denies fatigue, weight change, polydipsia or polyurina. GENITOURINARY: Denies burning, hematuria or urgency with micturation. HEMATOLOGIC: Denies history of anemia or bleeding. PHYSICAL EXAMINATION Vitals reviewed CONSTITUTIONAL: No apparent distress. HEENT: Head is normocephalic. Pupils are equal, round. Mucous membranes of the mouth are dry. No JVD. No carotid bruit. CHEST EXAMINATION:Decreased breath sounds on the right, mild crackles bilaterally HEART EXAMINATION: Regular rate and rhythm. S1, S2 heard. No murmurs, gallops or rub. ABDOMEN: Soft, Positive bowel sounds. EXTREMITIES: 2+ peripheral pulses, no LE edema NEUROLOGIC EXAMINATION: No focal deficits noted ASSESSMENT 1. Acute on chronic hypoxic respiratory failure 2. Right moderate pleural effusion worse then prior CT 3. Mildly elevated troponins, no obvious angina however does have some dyspnea 4. Acute on chronic diastolic heart failure 5. Pulmonary hypertension RVSP of 49 6. Moderate RV dilation 7. Anemia PLAN 2-D echo reviewed with predominantly preserved ejection fraction, do not suspect mildly elevated troponins related to acute coronary syndrome denies any chest pain. She has been responding to IV diuresis with creatinine improving. Electrolytes are being replaced. Pulmonary evaluated patient and no significant effusion to perform thoracentesis. Continue with current regimen. Objective - Vital Signs Vital signs: Vital Signs Temp 98 F 09/10/20 08:00 Pulse 80 09/10/20 08:02 Resp 16 09/10/20 08:00 BP 121/66 09/10/20 08:00 Pulse Ox 94 L 09/10/20 08:00 Intake & Output 09/09/20 09/10/20 09/10/20 18:59 06:59 18:59 Intake Total 480 180 Output Total 2350 1600 200 Balance -1869 Weight 74 kg Intake: Oral 480 180 Output: Urine 2024 1000 Stool 325 600 200 Other: Voiding Method External Catheter External Catheter # Bowel Movements 1 - Labs CBC & Chem 7: 09/09/20 07:45 09/09/20 14:51 Labs: Abnormal Lab Results - Last 24 Hours (Table) 09/08/20 09/09/20 09/09/20 Range/Units 02:43 12:09 14:51 Sodium 136 L (137-145) mmol/L Potassium 3.4 L (3.5-5.1) mmol/L Chloride 88 L (98-107) mmol/L Carbon Dioxide 39 H (22-30) mmol/L Glucose 167 H (74-99) mg/dL Albumin 3.4 L (3.5-5.0) g/dL Procalcitonin 0.24 H (0.02-0.09) ng/mL Urine Protein Trace H (Negative) Urine Blood Large H (Negative) Ur Leukocyte Esterase Large H (Negative) Urine RBC 108 H (0-5) /hpf Urine WBC 33 H (0-5) /hpf Urine Bacteria Occasional H (None) /hpf Microbiology - Last 24 Hours (Table) 09/09/20 12:09 Urine Culture - Preliminary Urine,Voided
[2020-09-10 11:43] LABS: Basophils # (A) 0.1 k/uL (0-0.2); Basophils % (A) 1 %; Eosinophils # (A) 0.4 k/uL (0-0.7); Eosinophils % (A) 5 %; HCT 33.1 % (34.0-46.0); HGB 10.3 gm/dL (11.4-16.0); Hypochromasia Slight; Lymphocytes # (A) 1.5 k/uL (1.0-4.8); Lymphocytes % (A) 21 %; MCH 30.9 pg (25.0-35.0); MCV 99.5 fL (80.0-100.0); Macrocytosis Slight; Mean Platelet Volume 9.8; Monocytes # (A) 0.6 k/uL (0-1.0); Monocytes % (A) 7 %; Neutrophils # (A) 4.7 k/uL (1.3-7.7); Neutrophils % (A) 63 %; Platelet Count 200 k/uL (150-450); RBC 3.33 m/uL (3.80-5.40); RDW 14.8 % (11.5-15.5); WBC 7.5 k/uL (3.8-10.6)
[2020-09-10] MEDS ORDERED: Phosphorus Replacement Protoco 1 EACH MISC MISCELLANE PRN (14:27)
[2020-09-10] MEDS ORDERED: Magnesium Replacement Protocol 1 EACH MISC MISCELLANE PRN (14:27)
--- NOTE | 2020-09-10 15:43 | PN ---
PROGRESS NOTE DATE OF SERVICE: 09/10/2020 REASON FOR FOLLOWUP: ESBL Proteus mirabilis UTI and bacteremia. INTERVAL HISTORY: The patient is currently afebrile. The patient is breathing comfortably on room air. Denies any chest pain or cough. No abdominal pain. No diarrhea. PHYSICAL EXAMINATION: Blood pressure 153/79, pulse of 79, temperature 98.3. She is 93% on room air. General description is an elderly female lying in bed in no distress. RESPIRATORY SYSTEM: Unlabored breathing, clear to auscultation anteriorly. HEART: S1, S2. Regular rate and rhythm. ABDOMEN: Soft, no tenderness. LABS: Hemoglobin 10.3, white count 7.5, BUN of 17, creatinine 0.56. Repeat urine is so far negative. DIAGNOSTIC IMPRESSION AND PLAN: Patient with Proteus mirabilis urinary tract infection with bacteremia. A repeat CT scan did show evidence of bilateral coiled ureteral stents with moderate bilateral hydronephrosis. The patient will benefit from Urology evaluation possible replacement of the stents. Patient to continue with Invanz and monitor clinical course closely. MMODL / IJN: [id number] /
[2020-09-10] MEDS: MAGNESIUM OXIDE 400 MG TAB PO SCH ×2 (16:35→22:09)
--- NOTE | 2020-09-10 16:59 | PN ---
PROGRESS NOTE DATE OF SERVICE: 09/10/2020 INTERVAL HISTORY: This 85-year-old woman who was admitted with shortness of breath with CHF, acute exacerbation, also had right pleural effusion. The patient is being closely monitored at this time. CT scan of the abdomen and pelvis was done yesterday which showed bilateral coiled ureteral stents with moderate bilateral hydroureter nephrosis. Distal coils appear to be in place in the bladder. Past medical history reviewed. PHYSICAL EXAMINATION: Patient is alert, oriented x2. Pulse 79, blood pressure 153/70, respiration 18, temperature 98.3, pulse ox 93% on room air. HEENT: Conjunctivae normal. NECK: No jugular venous distention. CARDIOVASCULAR SYSTEM: S1, S2 muffled. RESPIRATORY SYSTEM: Breath sounds diminished at the bases. A few scattered rhonchi. ABDOMEN: Soft. NERVOUS SYSTEM: No focal deficit. LABS: Hemoglobin 10.3, sodium 136, potassium 3.4 and magnesium is 1. REVIEW OF SYSTEMS: CARDIOVASCULAR SYSTEM: No angina, palpitations. RESPIRATORY SYSTEM: As mentioned earlier. GI: As mentioned earlier. : No dysuria or retention. NERVOUS SYSTEM: No numbness, weakness. CURRENT MEDICATIONS: Reviewed. They include Tylenol, [place], Maalox, zyloprim, Xanax, Norvasc, Orajel, ertapenem. Doses are reviewed. ASSESSMENT: 1. Shortness of breath, possibly congestive heart failure, acute exacerbation, with acute on chronic diastolic dysfunction, ejection fraction 50% to 55%. 2. Troponin elevated up to 0.146, possible acute vvk-[id number]-[id number]-elevation myocardial infarction. 3. Right pleural effusion. 4. Change in mental status, acute metabolic encephalopathy, multifactorial; acute on chronic metabolic encephalopathy. 5. History of recent extended-spectrum beta-lactamase Proteus bacteremia and urinary tract infection. 6. Possible right lower lobe pneumonia with right pleural effusion. 7. Increased white count. 8. Increased mean corpuscular volume. 9. Bilateral ureteral stents. 10.Anemia, chronic, of undetermined etiology. 11.History of cerebrovascular accident, transient ischemic attack. 12.Gastroesophageal reflux disease. 13.Hypertension. 14.History of dementia. 15.History of degenerative joint disease. 16.History of seizure disorder. 17.Hypothyroidism. 18.Restless legs syndrome. 19.History of hemiplegia. 20.History of hemiparesis. 21.History of methicillin-resistant Staphylococcus aeruginosa. 22.History of anxiety. 23.Obesity with body mass index of 74.5. 24.Hypomagnesemia. RECOMMENDATIONS AND DISCUSSION: I recommend to continue current medications, continue with the monitoring, symptomatic treatment. Continue with the diuretics. The patient is not a candidate for thoracocentesis on the right pleural tap, according to Dr. Canales. The patient is on ertapenem. Dr. Mix is following the patient closely. Recent urine culture is negative. Continue to monitor. Supplement potassium and magnesium. I would also recommend regular magnesium supplementation as well. Guarded prognosis. Further recommendations to follow. MMODL / IJN: [id number] /
--- NOTE | 2020-09-10 16:59 | P.PN ---
Subjective Progress Note Date: 09/10/20 Principal diagnosis: Acute on chronic hypoxic respiratory failure secondary to bilateral pleural effusions, strongly suspect acute on chronic diastolic congestive heart failure This is an 85-year-old female with history of multiple medical problems including previous CVA, dementia, hydronephrosis, history of ureteral stent placement on 08/30/2020, history of hypertension, patient was recently hospitalized for sepsis, urinary tract infection secondary to Proteus mirabilis, and she had Proteus mirabilis bacteremia. This was secondary to urinary tract infection, and I believe it was ESBL Proteus mirabilis. Patient was discharged home on 09/07/2020, however while at the medical [facility], patient was complaining of shortness of breath, but no cough, no fever, no chills, no hemoptysis, and her O2 saturation was noted to be dropping. Patient was seen in the ER, and her CT of the chest showed small right-sided pleural effusion, associated right basilar atelectasis, troponins where slightly elevated, and her BNP level was elevated almost 4000. Patient was admitted, and this consult was initiated. Echocardiogram from the last admission showed good LV function but it did show moderately enlarged right ventricle, moderate severe tricuspid regurgitation, and right-sided pulmonary hypertension with RVSP of 49. Patient tested negative for COVID-19. Considering the findings and her abnormal chest x-ray and CT of the chest, this consult was initiated. I reviewed the CT of the chest on this patient yesterday, and I recommended aggressive diuresis, follow-up chest x-ray today showed significant improvement with very minimal pleural effusion on the right side compared to the chest x-ray on admission, an ultrasound showed only a 3.0 cm pocket on the right side, and a small tiny pocket of fluid on the left side. Neither one is large enough to perform safe thoracentesis. Hence I will recommend that we continue diuretics, as the presentation seems to be more of a presentation of congestive heart failure and bilateral pleural effusions responding overnight to diuresis. Not to mention the patient had elevated BNP level on admission. Looking at her urinalysis, patient seems to have evidence of urinary tract infection, and final culture is pending, I would not be surprised if the cultures come back positive for Proteus mirabilis again. May have to be seen by infectious disease for her ESBL infection. Patient was reevaluated today on 09/10/2020, patient is feeling better, breathing a lot easier, she is actually on room air, obviously she is responding well to diuretics. O2 saturation is 93% on room air, patient is afebrile, vital signs are stable. CBC is relatively normal, renal profile is normal. Electrolytesenc normal. Urinalysis remains abnormal, I believe cultures are pending. Pro- calcitonin is not significantly or clinically elevated. Objective - Vital Signs Vital signs: Vital Signs Temp 98.3 F 09/10/20 12:01 Pulse 76 09/10/20 15:45 Resp 18 09/10/20 12:01 BP 153/79 09/10/20 12:01 Pulse Ox 93 L 09/10/20 12:01 Intake & Output 09/09/20 09/10/20 09/10/20 18:59 06:59 18:59 Intake Total 480 420 Output Total 2350 1600 850 Balance -1870 -1600 -430 Weight 74 kg Intake: Oral 480 420 Output: Urine 2024 1000 600 Stool 325 600 250 Other: Voiding Method External Catheter External Catheter # Bowel Movements 1 - Exam Physical Exam revealed 85-year-old female in no distress, on room air, O2 saturation 93% Head: Atraumatic, normocephalic. 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 Abdomen: [Obese, Soft, nontender, no megaly, no rebound, no guarding, normal bowel sounds.] Extremities: [No clubbing, trace of edema, no cyanosis.] Neurological Exam: Awake, no gross focal deficits. Psychiatric: Normal mood, affect, normal mental status today. Skin: No rashes. - Labs CBC & Chem 7: 09/10/20 10:17 09/09/20 14:51 Labs: Abnormal Lab Results - Last 24 Hours (Table) 09/08/20 09/10/20 09/10/20 Range/Units 02:43 10:17 10:17 RBC 3.33 L (3.80-5.40) m/uL Hgb 10.3 L (11.4-16.0) gm/dL Hct 33.1 L (34.0-46.0) % Magnesium 1.0 L (1.6-2.3) mg/dL Procalcitonin 0.24 H (0.02-0.09) ng/mL Microbiology - Last 24 Hours (Table) 09/09/20 12:09 Urine Culture - Preliminary Urine,Voided Assessment and Plan Assessment: Impression: Acute on chronic hypoxic respiratory failure. Secondary mostly to bilateral pleural effusions right more so than left, suspect acute on chronic diastolic congestive heart failure. Acute on chronic diastolic congestive heart failure. ESBL Proteus mirabilis/urinary tract infection. Pulmonary hypertension. Chronic anemia. Benign essential hypertension. History of seizure disorder. Degenerative joint disease. History of CVA/TIA. Recurrent urinary tract infection. Recommendation: Continue diuretics. Incentive spirometry. Will not recommend thoracentesis after reviewing the ultrasound of the chest. Continue ertapenem for her ESBL UTI. We'll continue to follow. Time with Patient: Less than 30
[2020-09-10] MEDS: ERTAPENEM 1 GM in SODIUM CHLORIDE 0.9% 50 ML IVPB SCH (17:44)
[2020-09-10] MEDS: ASPIRIN 81 MG PO SCH (21:18)
[2020-09-10] MEDS: MELATONIN 3 MG TABLET PO SCH (21:18)
[2020-09-10] MEDS: PRIMIDONE 25 MG TAB PO SCH (21:19)
[2020-09-11] MEDS: ALPRAZolam 0.25 MG TAB PO PRN (01:38)
[2020-09-11] MEDS: ACETAMINOPHEN TAB 325 MG TAB PO SCH ×3 (05:24→22:08)
[2020-09-11] MEDS: amLODIPine 10 MG TAB PO SCH (05:25)
[2020-09-11] MEDS: traMADol 50 MG TAB PO SCH ×4 (05:25→23:58)
[2020-09-11] MEDS: PANTOPRAZOLE 40 MG TABLET PO SCH (06:39)
[2020-09-11] MEDS: LEVOTHYROXINE 50 MCG TAB PO SCH (06:39)
[2020-09-11] MEDS: CARBIDOPA-LEVODOPA 25-100 MG 1 EACH TAB PO SCH ×2 (06:39→12:22)
[2020-09-11] MEDS: levETIRAcetam 500 MG TAB PO SCH ×2 (06:39→18:56)
[2020-09-11] MEDS: METOPROLOL TARTRATE 12.5 MG TAB PO SCH ×2 (06:39→18:56)
[2020-09-11] MEDS: SIMETHICONE 80 MG CHEWABLE PO SCH ×3 (06:40→16:36)
[2020-09-11] MEDS: BUDESONIDE 0.5 MG/2 ML NEBU INHALATION SCH ×2 (07:58→21:17)
[2020-09-11] MEDS: IPRATROPIUM-ALBUTEROL 3 ML NEB INHALATION SCH ×4 (07:58→21:17)
[2020-09-11] MEDS: FUROSEMIDE 10 MG/ML 4 ML VIAL IV SCH ×3 (09:10→23:59)
[2020-09-11] MEDS: LACTULOSE 20 GM/30 ML CUP PO SCH ×2 (09:11→22:09)
[2020-09-11] MEDS: allopurinoL 100 MG TAB PO SCH (09:11)
[2020-09-11] MEDS: MAGNESIUM OXIDE 400 MG TAB PO SCH ×3 (09:11→22:09)
[2020-09-11] MEDS: SERTRALINE 100 MG TAB PO SCH (09:11)
[2020-09-11] MEDS: BACLOFEN 10 MG TAB PO SCH (09:11)
[2020-09-11] MEDS ORDERED: Magnesium Replacement Protocol 1 EACH MISC MISCELLANE PRN (09:40)
[2020-09-11] MEDS: MAGNESIUM SULFATE-D5W PMX 1 GM in DEXTROSE/WATER 1 100ML.BAG IVPB SCH ×4 (09:53→14:15)
[2020-09-11] MEDS: HYDROcodone/APAP 5-325MG 1 EACH TAB PO PRN (11:22)
[2020-09-11] MEDS: ERTAPENEM 1 GM in SODIUM CHLORIDE 0.9% 50 ML IVPB SCH (16:24)
--- NOTE | 2020-09-11 16:46 | P.PN ---
Subjective Progress Note Date: 09/11/20 Principal diagnosis: Acute on chronic hypoxic respiratory failure secondary to bilateral pleural effusions, strongly suspect acute on chronic diastolic congestive heart failure This is an 85-year-old female with history of multiple medical problems including previous CVA, dementia, hydronephrosis, history of ureteral stent placement on 08/30/2020, history of hypertension, patient was recently hospitalized for sepsis, urinary tract infection secondary to Proteus mirabilis, and she had Proteus mirabilis bacteremia. This was secondary to urinary tract infection, and I believe it was ESBL Proteus mirabilis. Patient was discharged home on 09/07/2020, however while at the medical [facility], patient was complaining of shortness of breath, but no cough, no fever, no chills, no hemoptysis, and her O2 saturation was noted to be dropping. Patient was seen in the ER, and her CT of the chest showed small right-sided pleural effusion, associated right basilar atelectasis, troponins where slightly elevated, and her BNP level was elevated almost 4000. Patient was admitted, and this consult was initiated. Echocardiogram from the last admission showed good LV function but it did show moderately enlarged right ventricle, moderate severe tricuspid regurgitation, and right-sided pulmonary hypertension with RVSP of 49. Patient tested negative for COVID-19. Considering the findings and her abnormal chest x-ray and CT of the chest, this consult was initiated. I reviewed the CT of the chest on this patient yesterday, and I recommended aggressive diuresis, follow-up chest x-ray today showed significant improvement with very minimal pleural effusion on the right side compared to the chest x-ray on admission, an ultrasound showed only a 3.0 cm pocket on the right side, and a small tiny pocket of fluid on the left side. Neither one is large enough to perform safe thoracentesis. Hence I will recommend that we continue diuretics, as the presentation seems to be more of a presentation of congestive heart failure and bilateral pleural effusions responding overnight to diuresis. Not to mention the patient had elevated BNP level on admission. Looking at her urinalysis, patient seems to have evidence of urinary tract infection, and final culture is pending, I would not be surprised if the cultures come back positive for Proteus mirabilis again. May have to be seen by infectious disease for her ESBL infection. Patient was reevaluated today on 09/10/2020, patient is feeling better, breathing a lot easier, she is actually on room air, obviously she is responding well to diuretics. O2 saturation is 93% on room air, patient is afebrile, vital signs are stable. CBC is relatively normal, renal profile is normal. Electrolytesenc normal. Urinalysis remains abnormal, I believe cultures are pending. Pro- calcitonin is not significantly or clinically elevated. Patient was reevaluated today on 09/11/2020, patient is doing great, sitting in bed, in no distress, she is on 3 L nasal cannula with O2 sat showed 95%, patient denies any cough no wheezing no shortness of breath. CT of the abdomen and pelvis showed bilateral cortical ureteral stents with moderate bilateral hydroureteronephrosis, however that is being addressed by the admitting physician. Pulmonary-gagnon patient is doing great. Objective - Vital Signs Vital signs: Vital Signs Temp 98.0 F 09/11/20 12:00 Pulse 76 09/11/20 12:00 Resp 16 09/11/20 14:00 BP 136/72 09/11/20 12:00 Pulse Ox 95 09/11/20 12:00 Intake & Output 09/10/20 09/11/20 09/11/20 18:59 06:59 18:59 Intake Total 660 350 Output Total 1200 800 800 Balance -540 -800 -450 Weight 75.5 kg Intake: Oral 660 350 Output: Urine 600 800 500 Stool 600 300 Other: Voiding Method External Catheter External Catheter # Bowel Movements 1 - Exam Physical Exam revealed 85-year-old female in no distress, on 3 L nasal cannula O2 saturation 95%. Head: Atraumatic, normocephalic. HEENT:[Neck is supple.] [No neck masses.] [No thyromegaly.] [No JVD.] Chest: [Symmetrical chest expansion, stretching machine tender frame breath sounds at the bases no rhonchi no wheezes Cardiac Exam: Normal S1 and S2, no S3 gallop, 2/6 systolic murmur thought the precordium. Abdomen: [Obese, Soft, nontender, no megaly, no rebound, no guarding, normal bowel sounds.] Extremities: [No clubbing, trace of edema, no cyanosis.] Neurological Exam: Awake, no gross focal deficits. Psychiatric: Normal mood, affect, normal mental status today. Skin: No rashes. - Labs CBC & Chem 7: 09/10/20 10:17 09/09/20 14:51 Labs: Abnormal Lab Results - Last 24 Hours (Table) 09/11/20 Range/Units 08:12 Magnesium 0.9 L* (1.6-2.3) mg/dL Microbiology - Last 24 Hours (Table) 09/09/20 12:09 Urine Culture - Preliminary Urine,Voided Group D Enterococcus 09/09/20 14:51 Blood Culture - Preliminary Blood No Growth after 24 hours Assessment and Plan Assessment: Impression: Acute on chronic hypoxic respiratory failure. Secondary mostly to bilateral ple ural effusions right more so than left, suspect acute on chronic diastolic congestive heart failure. Acute on chronic diastolic congestive heart failure. ESBL Proteus mirabilis/urinary tract infection. Being addressed by infectious disease on the case. Bilateral ureteral hydronephrosis being addressed by the admitting physician. And by infectious disease considering her recurrent UTI. Pulmonary hypertension. Chronic anemia. Benign essential hypertension. History of seizure disorder. Degenerative joint disease. History of CVA/TIA. Recurrent urinary tract infection. With bilateral ureteral hydronephrosis. Recommendation: Continue diuretics. Incentive spirometry. Will not recommend thoracentesis after reviewing the ultrasound of the chest. Continue ertapenem for her ESBL UTI. We'll continue to follow. Time with Patient: Less than 30
--- NOTE | 2020-09-11 17:13 | P.PN ---
Subjective HISTORY OF PRESENTING ILLNESS Patient is a pleasant 85 year old female with history of CVA, GERD, dementia, altered mental status, hydronephrosis, s/p uretral stent 08/30/20, restless leg syndrome, right lower lobe consolidation, DEEPAK and HTN. She was recently hospitalized for AMS, sepsis with UTI and proteus bacteremia and had hydronephrosis with uretral stent placement. She was discharged yesterday and sent back to [facility] however pet patient her "breathing was off" and therefore was sent back to the hospital. She felt more SOB and reported to have decreased O2 sats requiring increasing oxygen at [facility] and therefore sent to ER. She denies any chest pain or pressure. CT showed small to moderate right pleural effusion increased in size from prior CT with emphysematous changes and compressive atelectasis. Tiny left pleural effusion. Troponins were 0.087, 0.137, 0.146, proBNP 3930, Coronavirus negative, Cr 0.73, BUN 14, WBC 12.3, Hgb 9.6. Troponins previously normal x 1 08/29. Echo from 09/01/2020 showed EF 50- 55%, moderately enlarged RV, paradoxical septal motion consistent with pressure, overload, moderate to severe TR, RVSP 49. She admits she has never really felt back to normal respiratory gagnon since Covid 1.5 yrs ago. No cardiac history in the past and does not follow in the office with a soap inspector. 09/09 Patient seen and examined. Patient denies any chest pain or pressure. 2-D echo limited pending. She is continuing with IV diuresis and states she is feeling better in terms of her shortness breath. 09/10 Echo performed which showed ejection fraction 50-55%, inferior hypokinesis. Patient has been responding to IV diuresis and chest x-ray improved. Pulmonary evaluated patient without much fluid on ultrasound to perform thoracentesis. Additionally she had a CAT scan abdomen and pelvis for her UTI, ureteral stents. She states her shortness breath. Denies chest pain. 09/11 Patient seen and examined with daughter at bedside. Patient continues to diuresis with IV Lasix. Denies any chest pain or pressure. She continues improved with her shortness breath. She was able to stand up however. Week and walking with a walker a few steps. REVIEW OF SYSTEMS At the time of my exam: CONSTITUTIONAL: No fatigue and weakness. Denies fever or chills. CARDIOVASCULAR: Denies chest pain, +shortness of breath, no orthopnea, PND or palpitations. RESPIRATORY: Denies cough. GASTROINTESTINAL: Denies abdominal pain, diarrhea, constipation, nausea or vomiting. MUSCULOSKELETAL: Denies myalgias. NEUROLOGIC: Denies numbness, tingling, headacbe or weakness. ENDOCRINE: Denies fatigue, weight change, polydipsia or polyurina. GENITOURINARY: Denies burning, hematuria or urgency with micturation. HEMATOLOGIC: Denies history of anemia or bleeding. PHYSICAL EXAMINATION Vitals reviewed CONSTITUTIONAL: No apparent distress. HEENT: Head is normocephalic. Pupils are equal, round. Mucous membranes of the mouth are dry. No JVD. No carotid bruit. CHEST EXAMINATION:Decreased breath sounds on the right, mild crackles bilaterally HEART EXAMINATION: Regular rate and rhythm. S1, S2 heard. No murmurs, gallops or rub. ABDOMEN: Soft, Positive bowel sounds. EXTREMITIES: 2+ peripheral pulses, no LE edema NEUROLOGIC EXAMINATION: No focal deficits noted ASSESSMENT 1. Acute on chronic hypoxic respiratory failure 2. Right moderate pleural effusion worse then prior CT 3. Mildly elevated troponins, no obvious angina however does have some dyspnea 4. Acute on chronic diastolic heart failure 5. Pulmonary hypertension RVSP of 49 6. Moderate RV dilation 7. Anemia PLAN Magnesium noted to be low and receiving replacement. Continues to diuresis with 40 mg Lasix IV every 8 hours. Creatinine has been stable. She denies any chest pain or pressure. We will check repeat chest x-ray for tomorrow and monitor response. Possible decrease in diuretics to twice a day or oral if chest x-ray improving. Echo with preserved ejection fraction predominantly and with continued treat mildly elevated troponin I nuclear as she is not having any current angina. May consider stress test as an outpatient if she develops any angina-type symptoms. Objective - Vital Signs Vital signs: Vital Signs Temp 98.0 F 09/11/20 12:00 Pulse 76 09/11/20 12:00 Resp 16 09/11/20 14:00 BP 136/72 09/11/20 12:00 Pulse Ox 95 09/11/20 12:00 Intake & Output 09/10/20 09/11/20 09/11/20 18:59 06:59 18:59 Intake Total 660 350 Output Total 1200 800 800 Balance -540 -800 -450 Weight 75.5 kg Intake: Oral 660 350 Output: Urine 600 800 500 Stool 600 300 Other: Voiding Method External Catheter External Catheter # Bowel Movements 1 - Labs CBC & Chem 7: 09/10/20 10:17 09/09/20 14:51 Labs: Abnormal Lab Results - Last 24 Hours (Table) 09/11/20 Range/Units 08:12 Magnesium 0.9 L* (1.6-2.3) mg/dL Microbiology - Last 24 Hours (Table) 09/09/20 12:09 Urine Culture - Preliminary Urine,Voided Group D Enterococcus 09/09/20 14:51 Blood Culture - Preliminary Blood No Growth after 24 hours
--- NOTE | 2020-09-11 18:18 | PN ---
PROGRESS NOTE DATE OF SERVICE: 09/11/2020 INTERVAL HISTORY: This is an 85-year-old woman who was admitted with shortness of breath, possible CHF exacerbation, acute on chronic diastolic dysfunction, also had elevated troponin. The patient also had right pleural effusion. Dr. Canales is recommending against any attempted aspiration because of the aspiration at this time. The patient is clinically improving. The patient is still on Lasix. PHYSICAL EXAMINATION: GENERAL: Patient is alert and oriented times three. VITAL SIGNS: Pulse 76, blood pressure 130/72, respirations 16, temperature 98, pulse ox 94% on 2 liters. HEENT: Conjunctivae normal. NECK: No jugular venous distention. No carotid bruits. No lymph node enlargement. RESPIRATORY: Breath sounds diminished at the bases. No rhonchi, no crackles. HEART: S1 and S2, muffled. ABDOMEN: Soft, no tenderness. No masses palpable. EXTREMITIES: No edema, no swelling. NERVOUS: No focal deficits. LAB STUDIES: WBC 10.2, magnesium is 0.9. ASSESSMENT: 1. Shortness of breath, possibly congestive heart failure acute exacerbation with acute on chronic diastolic dysfunction with ejection fraction 50-55%. 2. Troponin elevated up to 0.146, possible acute [id number]-elevation myocardial infarction. 3. Severe hypomagnesemia. 4. Right pleural effusion. 5. Change in mental status, acute metabolic encephalopathy multifactorial acute on chronic metabolic encephalopathy. 6. History of recent ESBL Proteus bacteremia and urinary tract infection. 7. Possible right lower lobe pneumonia with right pleural effusion. 8. Increased WBC. 9. History of increased MCV. 10.Bilateral ureteral stents. 11.Anemia, chronic of undetermined etiology. 12.History of cerebrovascular accident, transient ischemic attack. 13.Gastroesophageal reflux disease. 14.Hypertension. 15.History of dementia. 16.History of degenerative joint disease. 17.History of seizure disorder. 18.Hypothyroidism. 19.History of restless legs syndrome. 20.History of hemiplegia. 21.History of hemiparesis. 22.History of MRSA. 23.History of anxiety. 24.Obesity with body mass index 74.5. RECOMMENDATIONS AND DISCUSSION: I recommend to continue current medications, continue symptomatic treatment. Continue with magnesium protocol replacement. I would also increase the magnesium oxide to 400 mg t.i.d. Guarded prognosis. Further recommendations to follow. MMODL / IJN: [id number] /
--- NOTE | 2020-09-11 18:38 | PN ---
PROGRESS NOTE DATE OF SERVICE: 09/11/2020 REASON FOR FOLLOWUP: ESBL E coli urinary tract infection and bacteremia. INTERVAL HISTORY: Patient is currently afebrile. Patient is breathing comfortably. Denies having any chest pain. No shortness of breath or cough. No abdominal pain or diarrhea. PHYSICAL EXAMINATION: Blood pressure 136/72 with a pulse of 73, temperature 98. She is 95% on 2 L nasal cannula. General description is an elderly female lying in bed in no distress. Respiratory system: Unlabored breathing, clear to auscultation anteriorly. Heart S1, S2. Regular rate and rhythm. Abdomen soft, no tenderness. LABS: Hemoglobin is 10.1, white count 7.5, creatinine 0.56. Repeat showing Enterococcus. DIAGNOSTIC IMPRESSION AND PLAN: Patient with Proteus mirabilis urinary tract infection and bacteremia in this patient with complicated urinary tract infection requiring bilateral stent placement. Repeat CT done did shows hydronephrosis and bilateral ureteral stents. May need evaluation by Urology. Patient to continue with Ertapenem while waiting for the culture to finalize. Family at the bedside. Questions were answered. MMODL / IJN: [id number] /
[2020-09-11] MEDS: MELATONIN 3 MG TABLET PO SCH (22:07)
[2020-09-11] MEDS: PRIMIDONE 25 MG TAB PO SCH (22:08)
[2020-09-11] MEDS: ASPIRIN 81 MG PO SCH (22:08)
[2020-09-12] MEDS: ALPRAZolam 0.25 MG TAB PO PRN (00:16)
[2020-09-12] MEDS: amLODIPine 10 MG TAB PO SCH (05:38)
[2020-09-12] MEDS: ACETAMINOPHEN TAB 325 MG TAB PO SCH ×3 (05:38→21:29)
[2020-09-12] MEDS: traMADol 50 MG TAB PO SCH ×4 (05:39→23:33)
[2020-09-12] MEDS: METOPROLOL TARTRATE 12.5 MG TAB PO SCH ×2 (06:54→20:07)
[2020-09-12] MEDS: SIMETHICONE 80 MG CHEWABLE PO SCH ×3 (06:55→16:52)
[2020-09-12] MEDS: LEVOTHYROXINE 50 MCG TAB PO SCH (06:55)
[2020-09-12] MEDS: CARBIDOPA-LEVODOPA 25-100 MG 1 EACH TAB PO SCH ×2 (06:55→12:34)
[2020-09-12] MEDS: levETIRAcetam 500 MG TAB PO SCH ×2 (06:55→20:07)
[2020-09-12] MEDS: PANTOPRAZOLE 40 MG TABLET PO SCH (06:55)
--- NOTE | 2020-09-12 07:44 | XR ---
EXAMINATION TYPE: XR chest 1V portable DATE OF EXAM: 09/12/2020 COMPARISON: Chest x-ray and CT 09/09/2020 HISTORY: Pleural effusion TECHNIQUE: Single frontal view of the chest is obtained. FINDINGS: Cardiac mediastinal silhouette is stable. There is no evident pneumothorax. Patchy density present in the bilateral lungs, there is persistent obscured right hemidiaphragm. Aorta is dense and ectatic. There are overlying leads. Surgical clips present in the upper abdomen the right hemidiaphr agm is elevated. IMPRESSION: Correlate for lower lobe pneumonia, there is a right pleural effusion.
[2020-09-12] MEDS: IPRATROPIUM-ALBUTEROL 3 ML NEB INHALATION SCH ×4 (08:09→19:41)
[2020-09-12] MEDS: BUDESONIDE 0.5 MG/2 ML NEBU INHALATION SCH ×2 (08:09→19:41)
[2020-09-12 08:54] LABS: Basophils # (A) 0.1 k/uL (0-0.2); Basophils % (A) 1 %; Eosinophils # (A) 0.6 k/uL (0-0.7); Eosinophils % (A) 7 %; HCT 31.6 % (34.0-46.0); HGB 10.3 gm/dL (11.4-16.0); Hypochromasia Slight; Lymphocytes # (A) 2.2 k/uL (1.0-4.8); Lymphocytes % (A) 25 %; MCHC 32.6 g/dL (31.0-37.0); MCV 98.2 fL (80.0-100.0); Mean Platelet Volume 9.5; Monocytes # (A) 0.8 k/uL (0-1.0); Monocytes % (A) 9 %; Neutrophils # (A) 4.6 k/uL (1.3-7.7); Neutrophils % (A) 54 %; Platelet Count 218 k/uL (150-450); RBC 3.21 m/uL (3.80-5.40); RDW 14.4 % (11.5-15.5); WBC 8.6 k/uL (3.8-10.6)
[2020-09-12] MEDS: MAGNESIUM OXIDE 400 MG TAB PO SCH ×3 (09:33→21:30)
[2020-09-12] MEDS: BACLOFEN 10 MG TAB PO SCH (09:33)
[2020-09-12] MEDS: LACTULOSE 20 GM/30 ML CUP PO SCH ×3 (09:34→21:30)
[2020-09-12] MEDS: SERTRALINE 100 MG TAB PO SCH (09:34)
[2020-09-12] MEDS: FUROSEMIDE 10 MG/ML 4 ML VIAL IV SCH ×3 (09:35→23:33)
[2020-09-12] MEDS: allopurinoL 100 MG TAB PO SCH (09:35)
[2020-09-12] MEDS: HYDROcodone/APAP 5-325MG 1 EACH TAB PO PRN (09:37)
[2020-09-12] MEDS: MAG HYDROX/AL HYDROX/SIMETH 30 ML CUP PO PRN (09:53)
[2020-09-12 09:57] LABS: African American GFR (CKD) >90 (>60 ml/min/1.73 sqM); Blood Urea Nitrogen 21 mg/dL (7-17); Chloride 83 mmol/L (98-107); Glucose 92 mg/dL (74-99); Magnesium 1.8 mg/dL (1.6-2.3); Non-African American GFR(CKD) 81 (>60 ml/min/1.73 sqM); Phosphorus 4.7 mg/dL (2.5-4.5); Potassium 3.7 mmol/L (3.5-5.1); Sodium 134 mmol/L (137-145)
[2020-09-12 10:04] LABS: Anion Gap 8 mmol/L
[2020-09-12 10:16] LABS: Carbon Dioxide 43 mmol/L (22-30)
[2020-09-12] MEDS ORDERED: VANCOMYCIN IV PER PHARMACY 1 EACH MISC MISCELLANE PRN (14:37)
[2020-09-12] MEDS ORDERED: VANCOMYCIN 1,500 MG in SODIUM CHLORIDE 0.9% 250 ML IVPB ONE (15:15)
--- NOTE | 2020-09-12 15:41 | P.PN ---
Subjective Progress Note Date: 09/12/20 Principal diagnosis: Acute on chronic hypoxic respiratory failure secondary to bilateral pleural effusions, strongly suspect acute on chronic diastolic congestive heart failure This is an 85-year-old female with history of multiple medical problems including previous CVA, dementia, hydronephrosis, history of ureteral stent placement on 08/30/2020, history of hypertension, patient was recently hospitalized for sepsis, urinary tract infection secondary to Proteus mirabilis, and she had Proteus mirabilis bacteremia. This was secondary to urinary tract infection, and I believe it was ESBL Proteus mirabilis. Patient was discharged home on 09/07/2020, however while at the medical [place], patient was complaining of shortness of breath, but no cough, no fever, no chills, no hemoptysis, and her O2 saturation was noted to be dropping. Patient was seen in the ER, and her CT of the chest showed small right-sided pleural effusion, associated right basilar atelectasis, troponins where slightly elevated, and her BNP level was elevated almost 4000. Patient was admitted, and this consult was initiated. Echocardiogram from the last admission showed good LV function but it did show moderately enlarged right ventricle, moderate severe tricuspid regurgitation, and right-sided pulmonary hypertension with RVSP of 49. Patient tested negative for COVID-19. Considering the findings and her abnormal chest x-ray and CT of the chest, this consult was initiated. I reviewed the CT of the chest on this patient yesterday, and I recommended aggressive diuresis, follow-up chest x-ray today showed significant improvement with very minimal pleural effusion on the right side compared to the chest x-ray on admission, an ultrasound showed only a 3.0 cm pocket on the right side, and a small tiny pocket of fluid on the left side. Neither one is large enough to perform safe thoracentesis. Hence I will recommend that we continue diuretics, as the presentation seems to be more of a presentation of congestive heart failure and bilateral pleural effusions responding overnight to diuresis. Not to mention the patient had elevated BNP level on admission. Looking at her urinalysis, patient seems to have evidence of urinary tract infection, and final culture is pending, I would not be surprised if the cultures come back positive for Proteus mirabilis again. May have to be seen by infectious disease for her ESBL infection. Patient was reevaluated today on 09/10/2020, patient is feeling better, breathing a lot easier, she is actually on room air, obviously she is responding well to diuretics. O2 saturation is 93% on room air, patient is afebrile, vital signs are stable. CBC is relatively normal, renal profile is normal. Electrolytesenc normal. Urinalysis remains abnormal, I believe cultures are pending. Pro- calcitonin is not significantly or clinically elevated. Patient was reevaluated today on 09/11/2020, patient is doing great, sitting in bed, in no distress, she is on 3 L nasal cannula with O2 sat showed 95%, patient denies any cough no wheezing no shortness of breath. CT of the abdomen and pelvis showed bilateral cortical ureteral stents with moderate bilateral hydroureteronephrosis, however that is being addressed by the admitting physician. Pulmonary-gagnon patient is doing great. Reevaluated today on 09/12/2020, patient continues to do well, she is on 2 L nasal cannula, and her O2 saturation is ranging between 94-96%. Patient is afebrile, not in any distress, she is hemodynamically stable blood pressure is 126/66. CBC is normal basic metabolic profile is normal except elevated bicarb of 43. Renal profile is normal, patient is receiving treatment for urinary tract infection. Her pro calcitonin level was noted to be a bit high could be related to her bacterial infection in the urine. Although right lower lobe pneumonia is not entirely ruled out but felt to be less likely. Objective - Vital Signs Vital signs: Vital Signs Temp 98.2 F 09/12/20 12:28 Pulse 81 09/12/20 12:28 Resp 16 09/12/20 12:28 BP 126/66 09/12/20 12:28 Pulse Ox 94 L 09/12/20 12:28 Intake & Output 09/11/20 09/12/20 09/12/20 18:59 06:59 18:59 Intake Total 550 250 Output Total 800 800 Balance -250 -800 250 Weight 69 kg Intake: Oral 550 250 Output: Urine 500 400 Stool 300 400 Other: Voiding Method External Catheter External Catheter External Catheter # Bowel Movements 1 1 - Exam Physical Exam revealed 85-year-old female in no distress, on 2 L nasal cannula O2 saturation 86% Head: Atraumatic, normocephalic. HEENT:[Neck is supple.] [No neck masses.] [No thyromegaly.] [No JVD.] Chest: [Symmetrical chest expansion, diminished breath sounds at the bases especially at the right base nor rhonchi no wheezes Cardiac Exam: Normal S1 and S2, no S3 gallop, 2/6 systolic murmur thought the precordium. Abdomen: [Obese, Soft, nontender, no megaly, no rebound, no guarding, normal bowel sounds.] Extremities: [No clubbing, trace of edema, no cyanosis.] Neurological Exam: Awake, no gross focal deficits. Psychiatric: Normal mood, affect, normal mental status today. Skin: No rashes. - Labs CBC & Chem 7: 09/12/20 08:20 09/12/20 08:20 Labs: Abnormal Lab Results - Last 24 Hours (Table) 09/12/20 09/12/20 Range/Units 08:20 08:20 RBC 3.21 L (3.80-5.40) m/uL Hgb 10.3 L (11.4-16.0) gm/dL Hct 31.6 L (34.0-46.0) % Sodium 134 L (137-145) mmol/L Chloride 83 L (98-107) mmol/L Carbon Dioxide 43 H* (22-30) mmol/L BUN 21 H (7-17) mg/dL Phosphorus 4.7 H (2.5-4.5) mg/dL Microbiology - Last 24 Hours (Table) 09/09/20 12:09 Urine Culture - Final Urine,Voided Enterococcus faecium 09/09/20 14:51 Blood Culture - Preliminary Blood No Growth after 48 hours Assessment and Plan Assessment: Impression: Acute on chronic hypoxic respiratory failure. Secondary mostly to bilateral pleural effusions right more so than left, suspect acute on chronic diastolic congestive heart failure. Acute on chronic diastolic congestive heart failure. ESBL Proteus mirabilis/urinary tract infection. Being addressed by infectious disease on the case. Bilateral ureteral hydronephrosis being addressed by the admitting physician. And by infectious disease considering her recurrent UTI. Pulmonary hypertension. Chronic anemia. Benign essential hypertension. History of seizure disorder. Degenerative joint disease. History of CVA/TIA. Recurrent urinary tract infection. With bilateral ureteral hydronephrosis. Recommendation: Continue diuretics. Incentive spirometry. Ultrasound of the chest was reviewed again, doubt thoracentesis would be of value at this point. Continue ertapenem for her ESBL UTI. We'll continue to follow. Time with Patient: Less than 30
--- NOTE | 2020-09-12 16:03 | PN ---
PROGRESS NOTE DATE OF SERVICE: 09/12/2020 REASON FOR FOLLOWUP: Urinary tract infection. INTERVAL HISTORY: Patient is currently afebrile. Patient is breathing comfortably. No chest pain. No shortness of breath or cough. No abdominal pain. No diarrhea. PHYSICAL EXAMINATION: Blood pressure 126/56, pulse of 81, temperature 98.2. She is 94% on 2 L nasal cannula. General description is an elderly female lying in bed in no distress. Respiratory system: Unlabored breathing, clear to auscultation anteriorly. Heart S1, S2. Regular rate and rhythm. ABDOMEN: Soft. No tenderness. LABORATORY DATA: Urine currently showing Enterococcus faecium, that is Vancomycin sensitive . DIAGNOSTIC IMPRESSION AND PLAN: Patient with a complicated urinary tract infection in this patient with recent Proteus mirabilis, continued bacteremia for which the patient has received about 12-14 days of antibiotic, now with repeat urine showing Enterococcus faecium. Vancomycin antibiotic adjusted to vancomycin. There was evidence of bilateral hydronephrosis and may benefit from Urology evaluation. Continue supportive care. MMODL / IJN: [id number] /
--- NOTE | 2020-09-12 16:15 | PN ---
PROGRESS NOTE DATE OF SERVICE: 09/12/2020 INTERVAL HISTORY: This 88-year-old woman was admitted with possible right pleural effusion, as well as congestive heart failure acute exacerbation. Patient closely monitored at this time. The patient also has some hypercarbia with elevated CO2. The chest x-ray showed significant effusion on the right side and CO2 was 43 at this time. The patient also has significant hypomagnesemia. PAST MEDICAL HISTORY: Reviewed. REVIEW OF SYSTEMS: CARDIOVASCULAR: No angina or palpitations. RESPIRATORY: No coughing. GI: As mentioned earlier. : No dysuria. NERVOUS SYSTEM: No numbness or weakness. CURRENT MEDICATIONS: Tylenol, [place], Zyloprim, Xanax, aspirin, Lioresal, Lasix 40 IV q.8. PHYSICAL EXAMINATION: GENERAL: Patient is alert and oriented times two. VITAL SIGNS: Pulse 81, blood pressure 126/66, respirations 16, temperature 98.4, pulse ox 94% on 2 liters. HEENT: Conjunctivae normal. Oral mucosa moist. NECK: No jugular venous distention. No carotid bruits. RESPIRATORY: Breath sounds diminished at the bases. A few scattered rhonchi. HEART: S1 and S2, muffled. ABDOMEN: Soft, no tenderness. EXTREMITIES: No edema, no swelling. NERVOUS: No focal deficits. LABS: WBC 8.6, hemoglobin 10.2, sodium 132, potassium 3.7. ASSESSMENT: 1. Shortness of breath, possible congestive heart failure acute exacerbation with acute on chronic diastolic dysfunction, ejection fraction 50-55%. 2. Troponin elevated up to 0.146. Possible acute [id number]-elevation myocardial infarction. 3. Severe hypomagnesemia. 4. Right pleural effusion. 5. Change in mental status, acute metabolic encephalopathy multifactorial acute on chronic metabolic encephalopathy. 6. Hypercarbia. 7. History of recent ESBL Proteus bacteremia and urinary tract infection. 8. Possible right lower lobe pneumonia, as well as right pleural effusion. 9. Increased WBC. 10.History of increased MCV. 11.Bilateral ureteral stents. 12.Anemia of undetermined etiology. 13.History of cerebrovascular accident, transient ischemic attack. 14.Gastroesophageal reflux disease. 15.Hypertension. 16.History of dementia. 17.History of degenerative joint disease. 18.History of seizure disorder. 19.Hypothyroidism. 20.History of cirrhosis. 21.History of hemiplegia. 22.History of hemiparesis. 23.History of MRSA. 24.History of anxiety. 25.Obesity with body mass index 74.4. RECOMMENDATIONS AND DISCUSSION: Recommend to continue current management and continue symptomatic treatment. At this time use BiPAP at night. Repeat labs. Monitor hemoglobin closely. Continue the rest of the medications. Continue the diuretics. Monitor renal function closely. Prognosis guarded. Further recommendations to follow. HU / JASEN: [id number] /
--- NOTE | 2020-09-12 16:16 | P.PN ---
Subjective HISTORY OF PRESENTING ILLNESS Patient is a pleasant 85 year old female with history of CVA, GERD, dementia, altered mental status, hydronephrosis, s/p uretral stent 08/30/20, restless leg syndrome, right lower lobe consolidation, DEEPAK and HTN. She was recently hospitalized for AMS, sepsis with UTI and proteus bacteremia and had hydronephrosis with uretral stent placement. She was discharged yesterday and sent back to [facility] however pet patient her "breathing was off" and therefore was sent back to the hospital. She felt more SOB and reported to have decreased O2 sats requiring increasing oxygen at [facility] and therefore sent to ER. She denies any chest pain or pressure. CT showed small to moderate right pleural effusion increased in size from prior CT with emphysematous changes and compressive atelectasis. Tiny left pleural effusion. Troponins were 0.087, 0.137, 0.146, proBNP 3930, Coronavirus negative, Cr 0.73, BUN 14, WBC 12.3, Hgb 9.6. Troponins previously normal x 1 08/29. Echo from 09/01/2020 showed EF 50- 55%, moderately enlarged RV, paradoxical septal motion consistent with pressure, overload, moderate to severe TR, RVSP 49. She admits she has never really felt back to normal respiratory gagnon since Covid 1.5 yrs ago. No cardiac history in the past and does not follow in the office with a customer support agent. 09/09 Patient seen and examined. Patient denies any chest pain or pressure. 2-D echo limited pending. She is continuing with IV diuresis and states she is feeling better in terms of her shortness breath. 09/10 Echo performed which showed ejection fraction 50-55%, inferior hypokinesis. Patient has been responding to IV diuresis and chest x-ray improved. Pulmonary evaluated patient without much fluid on ultrasound to perform thoracentesis. Additionally she had a CAT scan abdomen and pelvis for her UTI, ureteral stents. She states her shortness breath. Denies chest pain. 09/11 Patient seen and examined with daughter at bedside. Patient continues to diuresis with IV Lasix. Denies any chest pain or pressure. She continues improved with her shortness breath. She was able to stand up however. Week and walking with a walker a few steps. 09/12 Patient seen and examined. Continued attempted diuresis. Chest x-ray performed this morning which does not show much improvement in right pleural effusion and made mention of possible pneumonia. Pulmonary recommendations noted and do not feel that right pleural effusion should be tapped at this point. Still feels somewhat short of breath and is on oxygen. Her BUN and creatinine mildly increased today. She does have some contraction alkalosis and sodium down mildly. REVIEW OF SYSTEMS At the time of my exam: CONSTITUTIONAL: No fatigue and weakness. Denies fever or chills. CARDIOVASCULAR: Denies chest pain, +shortness of breath, no orthopnea, PND or palpitations. RESPIRATORY: Denies cough. GASTROINTESTINAL: Denies abdominal pain, diarrhea, constipation, nausea or vomiting. MUSCULOSKELETAL: Denies myalgias. NEUROLOGIC: Denies numbness, tingling, headacbe or weakness. ENDOCRINE: Denies fatigue, weight change, polydipsia or polyurina. GENITOURINARY: Denies burning, hematuria or urgency with micturation. HEMATOLOGIC: Denies history of anemia or bleeding. PHYSICAL EXAMINATION Vitals reviewed CONSTITUTIONAL: No apparent distress. HEENT: Head is normocephalic. Pupils are equal, round. Mucous membranes of the mouth are dry. No JVD. No carotid bruit. CHEST EXAMINATION:Decreased breath sounds on the right, mild crackles bilate rally HEART EXAMINATION: Regular rate and rhythm. S1, S2 heard. No murmurs, gallops or rub. ABDOMEN: Soft, Positive bowel sounds. EXTREMITIES: 2+ peripheral pulses, no LE edema NEUROLOGIC EXAMINATION: No focal deficits noted ASSESSMENT 1. Acute on chronic hypoxic respiratory failure 2. Right moderate pleural effusion , not much improvement in x-ray 09/12 3. Mildly elevated troponins, no obvious angina 4. Acute on chronic diastolic heart failure 5. Pulmonary hypertension RVSP of 49 6. Moderate RV dilation 7. Anemia PLAN Patient has continued to diuresis however not much improvement in right pleural effusion by chest x-ray 09/12 morning. Chest x-ray mentions possible pneumonia however pro-calcitonin not overly elevated. She does have some contraction alkalosis and we will give Diamox. Additionally mild increases in BUN and creatinine, monitor closely. If right pleural effusion not improving, may consider thoracentesis however we will defer to pulmonology. Objective - Vital Signs Vital signs: Vital Signs Temp 98.2 F 09/12/20 12:28 Pulse 81 09/12/20 12:28 Resp 16 09/12/20 12:28 BP 126/66 09/12/20 12:28 Pulse Ox 94 L 09/12/20 12:28 Intake & Output 09/11/20 09/12/20 09/12/20 18:59 06:59 18:59 Intake Total 550 250 Output Total 800 800 Balance -250 -800 250 Weight 69 kg Intake: Oral 550 250 Output: Urine 500 400 Stool 300 400 Other: Voiding Method External Catheter External Catheter External Catheter # Bowel Movements 1 1 - Labs CBC & Chem 7: 09/12/20 08:20 09/12/20 08:20 Labs: Abnormal Lab Results - Last 24 Hours (Table) 09/12/20 09/12/20 Range/Units 08:20 08:20 RBC 3.21 L (3.80-5.40) m/uL Hgb 10.3 L (11.4-16.0) gm/dL Hct 31.6 L (34.0-46.0) % Sodium 134 L (137-145) mmol/L Chloride 83 L (98-107) mmol/L Carbon Dioxide 43 H* (22-30) mmol/L BUN 21 H (7-17) mg/dL Phosphorus 4.7 H (2.5-4.5) mg/dL Microbiology - Last 24 Hours (Table) 09/09/20 12:09 Urine Culture - Final Urine,Voided Enterococcus faecium 09/09/20 14:51 Blood Culture - Preliminary Blood No Growth after 48 hours
[2020-09-12] MEDS: acetaZOLAMIDE 250 MG TAB PO SCH (16:57)
[2020-09-12] MEDS: ASPIRIN 81 MG PO SCH (20:07)
[2020-09-12] MEDS: MELATONIN 3 MG TABLET PO SCH (20:07)
[2020-09-12] MEDS: PRIMIDONE 25 MG TAB PO SCH (21:29)
[2020-09-13] MEDS: ALPRAZolam 0.25 MG TAB PO PRN ×2 (00:25→22:11)
[2020-09-13] MEDS: amLODIPine 10 MG TAB PO SCH (05:26)
[2020-09-13] MEDS: traMADol 50 MG TAB PO SCH ×4 (05:26→22:06)
[2020-09-13] MEDS: ACETAMINOPHEN TAB 325 MG TAB PO SCH ×3 (05:27→20:20)
[2020-09-13] MEDS: MAG HYDROX/AL HYDROX/SIMETH 30 ML CUP PO PRN ×2 (05:53→20:23)
[2020-09-13] MEDS: VANCOMYCIN 1,250 MG in SODIUM CHLORIDE 0.9% 250 ML IVPB SCH ×2 (05:54→22:06)
[2020-09-13] MEDS: SIMETHICONE 80 MG CHEWABLE PO SCH ×3 (06:30→17:13)
[2020-09-13] MEDS: METOPROLOL TARTRATE 12.5 MG TAB PO SCH ×2 (06:30→20:20)
[2020-09-13] MEDS: CARBIDOPA-LEVODOPA 25-100 MG 1 EACH TAB PO SCH ×2 (06:31→12:09)
[2020-09-13] MEDS: PANTOPRAZOLE 40 MG TABLET PO SCH (06:31)
[2020-09-13] MEDS: LEVOTHYROXINE 50 MCG TAB PO SCH (06:31)
[2020-09-13] MEDS: levETIRAcetam 500 MG TAB PO SCH ×2 (06:31→20:21)
[2020-09-13] MEDS: IPRATROPIUM-ALBUTEROL 3 ML NEB INHALATION SCH ×4 (07:35→19:23)
[2020-09-13] MEDS: BUDESONIDE 0.5 MG/2 ML NEBU INHALATION SCH ×2 (07:35→19:23)
[2020-09-13] MEDS: BACLOFEN 10 MG TAB PO SCH (08:43)
[2020-09-13] MEDS: allopurinoL 100 MG TAB PO SCH (08:43)
[2020-09-13] MEDS: SERTRALINE 100 MG TAB PO SCH (08:43)
[2020-09-13] MEDS: FUROSEMIDE 10 MG/ML 4 ML VIAL IV SCH ×2 (08:43→17:14)
[2020-09-13] MEDS: MAGNESIUM OXIDE 400 MG TAB PO SCH ×3 (08:43→22:06)
[2020-09-13] MEDS: acetaZOLAMIDE 250 MG TAB PO SCH (08:43)
[2020-09-13] MEDS: LACTULOSE 20 GM/30 ML CUP PO SCH ×3 (08:43→20:37)
[2020-09-13 10:49] LABS: Calcium 8.9 mg/dL (8.4-10.2); Potassium 3.1 mmol/L (3.5-5.1)
[2020-09-13 10:59] LABS: Basophils % (A) 1 %; Eosinophils # (A) 0.6 k/uL (0-0.7); Eosinophils % (A) 8 %; HCT 33.8 % (34.0-46.0); Hypochromasia Moderate; Lymphocytes % (A) 28 %; MCHC 29.7 g/dL (31.0-37.0); MCV 101.1 fL (80.0-100.0); Macrocytosis Slight; Mean Platelet Volume 10.9; Monocytes # (A) 0.5 k/uL (0-1.0); Monocytes % (A) 7 %; Neutrophils # (A) 3.9 k/uL (1.3-7.7); Neutrophils % (A) 55 %; Platelet Count 247 k/uL (150-450); RBC 3.34 m/uL (3.80-5.40); RDW 14.6 % (11.5-15.5); WBC 7.1 k/uL (3.8-10.6)
--- NOTE | 2020-09-13 14:18 | PN ---
PROGRESS NOTE DATE OF SERVICE: 09/13/2020 REASON FOR FOLLOWUP: Recurrent urinary tract infection. INTERVAL HISTORY: Patient is currently afebrile. Patient is breathing comfortably on 2 L nasal cannula. Denies any chest pain, shortness of breath or cough. No abdominal pain or diarrhea. PHYSICAL EXAMINATION: Blood pressure 140/50 with a pulse of 62, temperature 97.7. She is 93% on 2 L nasal cannula. General description: Elderly female up in the chair in no distress. Respiratory system: Unlabored breathing, clear to auscultation anteriorly. Heart S1, S2. Regular rate and rhythm. ABDOMEN: Soft. No tenderness. LABS: Hemoglobin is 10 with white count 7.1. BUN of 17, creatinine 0.78. DIAGNOSTIC IMPRESSION AND PLAN: Patient with recurrent urinary tract infection with recent history of Proteus mirabilis urinary tract infection and bacteremia, now with urine showing Enterococcus. Patient repeat urine culture has been ordered. Antibiotic adjusted to daptomycin. Urology evaluation with evidence of hydronephrosis and stents. Continue supportive care. MMODL / IJN: [id number] /
[2020-09-13] MEDS ORDERED: POTASSIUM CHLORIDE ER 20 MEQ TAB.ER PO STA (14:24)
--- NOTE | 2020-09-13 14:39 | P.PN ---
Subjective Progress Note Date: 09/13/20 09/12/2020 Patient is a pleasant 85 year old female with history of CVA, GERD, dementia, altered mental status, hydronephrosis, s/p uretral stent 08/30/20, restless leg syndrome, right lower lobe consolidation, DEEPAK and HTN. She was recently hospitalized for AMS, sepsis with UTI and proteus bacteremia and had hydronephrosis with uretral stent placement. She was discharged yesterday and sent back to [facility] however pet patient her "breathing was off" and therefore was sent back to the hospital. She felt more SOB and reported to have decreased O2 sats requiring increasing oxygen at [facility] and therefore sent to ER. She denies any chest pain or pressure. CT showed small to moderate right pleural effusion increased in size from prior CT with emphysematous changes and compressive atelectasis. Tiny left pleural effusion. Troponins were 0.087, 0.137, 0.146, proBNP 3930, Coronavirus negative, Cr 0.73, BUN 14, WBC 12.3, Hgb 9.6. Troponins previously normal x 1 08/29. Echo from 09/01/2020 showed EF 50-55%, moderately enlarged RV, paradoxical septal motion consistent with pressure, overload, moderate to severe TR, RVSP 49. She admits she has never really felt back to normal respiratory gganon since Covid 1.5 yrs ago. No cardiac history in the past and does not follow in the office with a trial justice. 09/13/2020: This patient is feeling better. She denies any chest pain or sh ortness of breath. In fact she wants to go home. However her lab values showed a hypokalemia with potassium of 3.1. CO2 is 44 and creatinine is 0.78. Vital Signs are stable. Urine output is fair. Recent is still IV Lasix 40 mg every 8 hours. She does have pleural effusion. We'll wait for the recommendation of sandstone splitter regarding pleural tap. Clinically, patient doesn't appear to be in acute distress at this time. Objective - Vital Signs Vital signs: Vital Signs Temp 97.7 F 09/13/20 11:46 Pulse 62 09/13/20 11:46 Resp 20 09/13/20 11:46 BP 140/58 09/13/20 11:46 Pulse Ox 93 L 09/13/20 11:46 Intake & Output 09/12/20 09/13/20 09/13/20 18:59 06:59 18:59 Intake Total 350 360 Output Total 1 860 250 Balance 349 -860 110 Weight 68.5 kg Intake: Oral 350 360 Output: Urine 1 760 250 Stool 100 Other: Voiding Method External Catheter External Catheter # Voids 3 # Bowel Movements 1 - Exam GENERAL EXAM: Patient is alert and oriented and doesn't appear to be in any acute distress HEENT: Normocephalic. Normal reaction of pupils, equal size, normal range of extraocular motion. No erythema or exudates in the throat. NECK: No masses, no nuchal rigidity. CHEST: No chest wall deformity. LUNGS: There appears to be diminished breath sounds at bases, especially on the right side HEART: S1 and S2 normal ABDOMEN: No hepatosplenomegaly, normal bowel sounds, no guarding or rigidity. SKIN: No rashes CENTRAL NERVOUS SYSTEM: No focal deficits. EXTREMITIES: No cyanosis, clubbing or edema. - Labs CBC & Chem 7: 09/13/20 09:26 09/13/20 09:26 Labs: Abnormal Lab Results - Last 24 Hours (Table) 09/13/20 09/13/20 Range/Units 09:26 09:26 RBC 3.34 L (3.80-5.40) m/uL Hgb 10.0 L (11.4-16.0) gm/dL Hct 33.8 L (34.0-46.0) % MCV 101.1 H (80.0-100.0) fL MCHC 29.7 L (31.0-37.0) g/dL Sodium 136 L (137-145) mmol/L Potassium 3.1 L (3.5-5.1) mmol/L Chloride 85 L (98-107) mmol/L Carbon Dioxide 44 H* (22-30) mmol/L Glucose 130 H (74-99) mg/dL Microbiology - Last 24 Hours (Table) 09/09/20 14:51 Blood Culture - Preliminary Blood No Growth after 72 hours Assessment and Plan Plan: This patient is being treated for acute on chronic respiratory failure, pleural effusion and diastolic CHF. Patient has moderate pulmonary hypertension. Mildly elevated. Nonspecific troponin values. Plan: Continue current medical therapy. May switch to by mouth diuretics. We'll follow
--- NOTE | 2020-09-13 14:39 | P.PN ---
Subjective Progress Note Date: 09/13/20 This is an 85-year-old female who was recently admitted with possible right pleural effusion and congestive heart failure acute exacerbation and is being closely monitored. Multiple medical consultations including cardiology, pulmonary, and infectious disease following. Patient is maintained on IV antib iotic therapy for ESBL in the urine and has recently underwent ureteral stent placement bilaterally with urology. Urine culture finalized showing Enterococcus faecium and patient was on ertapenem which was recently changed to vancomycin and infectious disease is following closely. Urology has been consulted for hydronephrosis and patient continues with indwelling Arroyo catheter. Patient is also continued on IV Lasix and will continue. Magnesium replaced and currently 1.8. Potassium today at 3.1 and will replace and repeat electrolytes. White blood count is 7.1 and hemoglobin is 10.0, sodium is 136 current creatinine is 0.78. Review of systems: Constitutional: Reports fatigue, no reports of fever, or chills Cardiovascular: No reports of chest pain or palpitations Respiratory: No reports of shortness of breath or cough GI: No reports of nausea, vomiting, or diarrhea : No reports of dysuria or retention Neurovascular: Reports generalized weakness All medications have been reviewed Active Medications Acetaminophen (Acetaminophen Tab 325 Mg Tab) 650 mg PO TID@0500,1300,2100 [facility] Last Admin: 09/13/20 05:27 Dose: 650 mg Documented by: Hydrocodone Bitart/Acetaminophen (Hydrocodone/Apap 5-325mg 1 Each Tab) 1 each PO Q8H PRN PRN Reason: Pain Last Admin: 09/12/20 09:37 Dose: 1 each Documented by: Al Hydroxide/Mg Hydroxide (Mag Hydrox/Al Hydrox/Simeth 30 Ml Cup) 30 ml PO Q6H PRN PRN Reason: Indigestion Last Admin: 09/13/20 05:53 Dose: 30 ml Documented by: Albuterol/Ipratropium (Ipratropium-Albuterol 3 Ml Neb) 3 ml INHALATION RT-QID [facility] Last Admin: 09/13/20 10:58 Dose: 3 ml Documented by: Allopurinol (Allopurinol 100 Mg Tab) 200 mg PO DAILY [facility] Last Admin: 09/13/20 08:43 Dose: 200 mg Documented by: Alprazolam (Alprazolam 0.25 Mg Tab) 0.25 mg PO TID PRN PRN Reason: Anxiety Last Admin: 09/13/20 00:25 Dose: 0.25 mg Documented by: Amlodipine Besylate (Amlodipine 10 Mg Tab) 10 mg PO DAILY@0500 [facility] Last Admin: 09/13/20 05:26 Dose: 10 mg Documented by: Aspirin (Aspirin 81 Mg) 81 mg PO HS@1999 [facility] Last Admin: 09/12/20 20:07 Dose: 81 mg Documented by: Baclofen (Baclofen 10 Mg Tab) 10 mg PO DAILY [facility] Last Admin: 09/13/20 08:43 Dose: 10 mg Documented by: Benzocaine (Benzocaine 20 % Gel 15 Gm Tube) 1 gm MM TID PRN PRN Reason: MOUTH PAIN Budesonide (Budesonide 0.5 Mg/2 Ml Nebu) 0.5 mg INHALATION RT-BID [facility] Last Admin: 09/13/20 07:35 Dose: 0.5 mg Documented by: Carbidopa/Levodopa (Carbidopa-Levodopa 25-100 Mg 1 Each Tab) 1 each PO AC- BID@0700,1300 [facility] Last Admin: 09/13/20 12:09 Dose: 1 each Documented by: Furosemide (Furosemide 10 Mg/Ml 4 Ml Vial) 40 mg IV Q8HR [facility] Last Admin: 09/13/20 08:43 Dose: 40 mg Documented by: Vancomycin HCl 1,250 mg/ (Sodium Chloride) 250 mls @ 125 mls/hr IVPB Q16H [facility] Last Admin: 09/13/20 05:54 Dose: 125 mls/hr Documented by: Lactulose (Lactulose 20 Gm/30 Ml Cup) 30 gm PO BID [facility] Last Admin: 09/13/20 08:43 Dose: Not Given Documented by: Levetiracetam (Levetiracetam 500 Mg Tab) 500 mg PO BID@0700,1900 [facility] Last Admin: 09/13/20 06:31 Dose: 500 mg Documented by: Levothyroxine Sodium (Levothyroxine 50 Mcg Tab) 50 mcg PO DAILY@0630 [facility] Last Admin: 09/13/20 06:31 Dose: 50 mcg Documented by: Magnesium Oxide (Magnesium Oxide 400 Mg Tab) 400 mg PO TID [facility] Last Admin: 09/13/20 08:43 Dose: 400 mg Documented by: Melatonin (Melatonin 3 Mg Tablet) 3 mg PO HS@1999 [facility] Last Admin: 09/12/20 20:07 Dose: 3 mg Documented by: Metoprolol Tartrate (Metoprolol Tartrate 12.5 Mg Tab) 12.5 mg PO BID@0700,1900 [facility] Last Admin: 09/13/20 06:30 Dose: 12.5 mg Documented by: Miscellaneous Information (Potassium Replacement Protocol 1 Each Misc) 1 each MISCELLANE DAILY PRN; Protocol PRN Reason: Per Protocol Miscellaneous Information (Phosphorus Replacement Protoco 1 Each Misc) 1 each MISCELLANE DAILY PRN; Protocol PRN Reason: Per Protocol Miscellaneous Information (Magnesium Replacement Protocol 1 Each Misc) 1 each MISCELLANE DAILY PRN; Protocol PRN Reason: Per Protocol Pantoprazole Sodium (Pantoprazole 40 Mg Tablet) 40 mg PO AC-BRKFST [facility] Last Admin: 09/13/20 06:31 Dose: 40 mg Documented by: Primidone (Primidone 25 Mg Tab) 25 mg PO HS@2000 [facility] Last Admin: 09/12/20 21:29 Dose: 25 mg Documented by: Ropinirole HCl (Ropinirole Hcl 0.25 Mg Tab) 0.5 mg PO TID@0700,1300,1900 [facility] Last Admin: 09/13/20 12:08 Dose: 0.5 mg Documented by: Sertraline HCl (Sertraline 100 Mg Tab) 100 mg PO DAILY [facility] Last Admin: 09/13/20 08:43 Dose: 100 mg Documented by: Simethicone (Simethicone 80 Mg Chewable) 80 mg PO AC-TID@07,12,17 [facility] Last Admin: 09/13/20 12:06 Dose: 80 mg Documented by: Sodium Chloride (Sodium Chloride 0.9% Flush 10 Ml Syringe) 10 ml IV BID [facility] Last Admin: 09/13/20 08:44 Dose: Not Given Documented by: Tramadol HCl (Tramadol 50 Mg Tab) 50 mg PO Q6H [facility] Last Admin: 09/13/20 12:06 Dose: 50 mg Documented by: Objective - Vital Signs Vital signs: Vital Signs Temp 97.8 F 09/13/20 08:00 Pulse 59 L 09/13/20 08:00 Resp 20 09/13/20 08:00 BP 121/56 09/13/20 08:00 Pulse Ox 95 09/13/20 08:00 Intake & Output 09/12/20 09/13/20 09/13/20 18:59 06:59 18:59 Intake Total 350 Output Total 1 860 250 Balance 349 -860 -250 Weight 68.5 kg Intake: Oral 350 Output: Urine 1 760 250 Stool 100 Other: Voiding Method External Catheter External Catheter # Voids 3 # Bowel Movements 1 - Exam Gen: This is a 85-year-old female awake, alert and oriented 2, well-developed, well-nourished. Temp is 97.8F, pulse is 59, respirations are 20, blood pressure 121/56, oxygen saturation is 95% on 2 L via nasal cannula. HEENT: Head is atraumatic, normocephalic. Pupils equal, round. Sclerae is anicteric. NECK: Supple. No JVD. No lymphadenopathy. No thyromegaly. LUNGS: Diminished breath sounds bilaterally with a few scattered rhonchi noted. No intercostal retractions. HEART: S1, S2 are muffled ABDOMEN: Soft. Bowel sounds are present. No masses. No tenderness. EXTREMITIES: No pedal edema. No calf tenderness. NEUROLOGICAL: Patient is awake, alert and oriented x2. Diffusely weak. - Labs CBC & Chem 7: 09/13/20 09:26 09/13/20 09:26 Labs: Abnormal Lab Results - Last 24 Hours (Table) 09/12/20 Range/Units 08:20 Sodium 134 L (137-145) mmol/L Chloride 83 L (98-107) mmol/L Carbon Dioxide 43 H* (22-30) mmol/L BUN 21 H (7-17) mg/dL Phosphorus 4.7 H (2.5-4.5) mg/dL Microbiology - Last 24 Hours (Table) 09/09/20 14:51 Blood Culture - Preliminary Blood No Growth after 72 hours Assessment and Plan Assessment: Shortness of breath, possible congestive heart failure acute exacerbation with acute on chronic diastolic dysfunction, ejection fraction 50-55% Troponin elevated up to 0.146. Possible acute non-ST segment elevation m yocardial infarction Severe hypomagnesemia Right pleural effusion Change in mental status, acute metabolic encephalopathy, multifactorial with acute on chronic metabolic encephalopathy Hypercarbia History of recent ESBL Proteus bacteremia and urinary tract infection Possible right lower lobe pneumonia, as well as right pleural effusion Increased white blood count History of increased MCV Bilateral ureteral stents [place] anemia of undetermined etiology History of CVA, TIA Gastroesophageal reflux disease Hypertension History of dementia History of degenerative joint disease History of seizure disorder Hypothyroidism History of cirrhosis next line history of hemiplegia next line history of morris paresis History of MRSA History of anxiety Obesity with a body mass index of 25.1 Recommendations and discussion: Recommend to continue with current medications and current management. Multiple medical consultations following including pulmonary, cardiology, infectious disease and urology was consulted as patient had a recent bilateral ureteral stent placement and hydronephrosis with ESBL Proteus species urinary tract infection and is currently pending. Patient is maintained on vancomycin and will continue at this time. Continues with IV Lasix. Magnesium found to be 1.8 and potassium 3.1 today and will replace and repeat a.m. labs. Due to multiple complex medical conditions, prognosis remains guarded. Social work also following as patient will be returning to [facility] as she is a resident there once stabilized and discharged. Time with Patient: Greater than 30
[2020-09-13] MEDS: HYDROcodone/APAP 5-325MG 1 EACH TAB PO PRN (16:13)
--- NOTE | 2020-09-13 16:14 | P.PN ---
Subjective Progress Note Date: 09/13/20 Principal diagnosis: Congestive heart failure. This is an 85-year-old female with history of multiple medical problems including previous CVA, dementia, hydronephrosis, history of ureteral stent placement on 08/30/2020, history of hypertension, patient was recently hospitalized for sepsis, urinary tract infection secondary to Proteus mirabilis, and she had Proteus mirabilis bacteremia. This was secondary to urinary tract infection, and I believe it was ESBL Proteus mirabilis. Patient was discharged home on 09/07/2020, however while at the medical [place], patient was complaining of shortness of breath, but no cough, no fever, no chills, no hemoptysis, and her O2 saturation was noted to be dropping. Patient was seen in the ER, and her CT of the chest showed small right-sided pleural effusion, associated right basilar atelectasis, troponins where slightly elevated, and her BNP level was elevated almost 4000. Patient was admitted, and this consult was initiated. Echocardiogram from the last admission showed good LV function but it did show moderately enlarged right ventricle, moderate severe tricuspid regurgitation, and right-sided pulmonary hypertension with RVSP of 49. Patient tested negative for COVID-19. Considering the findings and her abnormal chest x-ray and CT of the chest, this consult was initiated. I reviewed the CT of the chest on this patient yesterday, and I recommended aggressive diuresis, follow-up chest x-ray today showed significant improvement with very minimal pleural effusion on the right side compared to the chest x-ray on admission, an ultrasound showed only a 3.0 cm pocket on the right side, and a small tiny pocket of fluid on the left side. Neither one is large enough to perform safe thoracentesis. Hence I will recommend that we continue diuretics, as the presentation seems to be more of a presentation of congestive heart failure and bilateral pleural effusions responding overnight to diuresis. Not to mention the patient had elevated BNP level on admission. Looking at her urinalysis, patient seems to have evidence of urinary tract infection, and final culture is pending, I would not be surprised if the cultures come back positive for Proteus mirabilis again. May have to be seen by infectious disease for her ESBL infection. Patient was reevaluated today on 09/10/2020, patient is feeling better, breathing a lot easier, she is actually on room air, obviously she is responding well to diuretics. O2 saturation is 93% on room air, patient is afebrile, vital signs are stable. CBC is relatively normal, renal profile is normal. Electrolytesenc normal. Urinalysis remains abnormal, I believe cultures are pending. Pro- calcitonin is not significantly or clinically elevated. Patient was reevaluated today on 09/11/2020, patient is doing great, sitting in bed, in no distress, she is on 3 L nasal cannula with O2 sat showed 95%, patient denies any cough no wheezing no shortness of breath. CT of the abdomen and pelvis showed bilateral cortical ureteral stents with moderate bilateral hydroureteronephrosis, however that is being addressed by the admitting physician. Pulmonary-gagnon patient is doing great. Reevaluated today on 09/12/2020, patient continues to do well, she is on 2 L nasal cannula, and her O2 saturation is ranging between 94-96%. Patient is afebrile, not in any distress, she is hemodynamically stable blood pressure is 126/66. CBC is normal basic metabolic profile is normal except elevated bicarb of 43. Renal profile is normal, patient is receiving treatment for urinary tract infection. Her pro calcitonin level was noted to be a bit high could be related to her bacterial infection in the urine. Although right lower lobe pneumonia is not entirely ruled out but felt to be less likely. Progress note dated 09/13/2020. The patient is reevaluated. She remains a room 359. The patient remains on 2 L nasal cannula. Her temperature is normal as was her blood pressure place. She is hemodynamically stable. She is in no acute distress. Lab data from today includes a white count of 7.1, hemoglobin 10, hematocrit 33.8, and platelet count 247,000. Sodium 136, potassium 3.1, chlorides 85, CO2 44, anion gap 7, BUN 17, and creatinine 0.78. No recent x-ray today. Urine specimen from September 09 showing enterococcus facecium. It is sensitive to vancomycin, which is what she is on. Stable from the pulmonary standpoint. Objective - Vital Signs Vital signs: Vital Signs Temp 97.7 F 09/13/20 11:46 Pulse 79 09/13/20 15:50 Resp 20 09/13/20 11:46 BP 140/58 09/13/20 11:46 Pulse Ox 93 L 09/13/20 11:46 Intake & Output 09/12/20 09/13/20 09/13/20 18:59 06:59 18:59 Intake Total 350 600 Output Total 1 860 250 Balance 349 -860 350 Weight 68.5 kg Intake: Oral 350 600 Output: Urine 1 760 250 Stool 100 Other: Voiding Method External Catheter External Catheter External Catheter # Voids 3 # Bowel Movements 1 - Exam No acute distress, oriented 3. Currently on 2 L nasal O2. Saturations are in the mid 90s. HEENT examination is grossly unremarkable. Neck supple. Full range of motion. No adenopathy thyromegaly or neck vein distention. Cardiovascular examination reveals regular rhythm rate. S1-S2 normal. No S3 or S4. No discernible murmur noted. Heart rate 79 bpm. Heart sounds are distant. There is a grade 2/6 systolic murmur noted. Lungs reveal scattered rhonchi and crackles. Diminished breath sounds at the right base. Abdomen soft bowel sounds are heard. No masses or tenderness. Extremities are intact. No cyanosis clubbing or edema. Skin is without rash or lesion. Neurologic examination is brief but nonfocal. - Labs CBC & Chem 7: 09/13/20 09:26 09/13/20 09:26 Labs: Abnormal Lab Results - Last 24 Hours (Table) 09/13/20 09/13/20 Range/Units 09:26 09:26 RBC 3.34 L (3.80-5.40) m/uL Hgb 10.0 L (11.4-16.0) gm/dL Hct 33.8 L (34.0-46.0) % MCV 101.1 H (80.0-100.0) fL MCHC 29.7 L (31.0-37.0) g/dL Sodium 136 L (137-145) mmol/L Potassium 3.1 L (3.5-5.1) mmol/L Chloride 85 L (98-107) mmol/L Carbon Dioxide 44 H* (22-30) mmol/L Glucose 130 H (74-99) mg/dL Microbiology - Last 24 Hours (Table) 09/09/20 14:51 Blood Culture - Preliminary Blood No Growth after 72 hours Assessment and Plan Assessment: Acute on chronic hypoxemic respiratory failure, secondary to acute on chronic diastolic CHF. Bilateral pleural effusions, right greater than left. Enterococcus species urinary tract infection, currently on vancomycin. Bilateral ureteral hydronephrosis. Pulmonary hypertension. Chronic anemia. Benign essential hypertension. History of seizure disorder. History of degenerative joint disease. History of CVA. History of recurrent urinary tract sections. Plan: Plan dated 09/13/2020. The patient will continue on diuretics, and incentive spirometry. Ultrasound of the chest was reviewed, and we doubt thoracentesis would be of value at this point. The patient's currently on appropriate antibiotics. The patient's on vancomycin for enterococcus species. We will continue to follow the patient and make recommendations where appropriate. Overall prognosis remains guarded given her age and multiple medical problems. Time with Patient: Less than 30
[2020-09-13] MEDS: MELATONIN 3 MG TABLET PO SCH (20:21)
[2020-09-13] MEDS: PRIMIDONE 25 MG TAB PO SCH (20:21)
[2020-09-13] MEDS: ASPIRIN 81 MG PO SCH (20:21)
[2020-09-14] MEDS: FUROSEMIDE 10 MG/ML 4 ML VIAL IV SCH ×2 (00:04→08:47)
[2020-09-14] MEDS: traMADol 50 MG TAB PO SCH ×3 (06:26→16:41)
[2020-09-14] MEDS: PANTOPRAZOLE 40 MG TABLET PO SCH (06:26)
[2020-09-14] MEDS: levETIRAcetam 500 MG TAB PO SCH (06:27)
[2020-09-14] MEDS: CARBIDOPA-LEVODOPA 25-100 MG 1 EACH TAB PO SCH ×2 (06:27→12:19)
[2020-09-14] MEDS: LEVOTHYROXINE 50 MCG TAB PO SCH (06:27)
[2020-09-14] MEDS: amLODIPine 10 MG TAB PO SCH (06:27)
[2020-09-14] MEDS: METOPROLOL TARTRATE 12.5 MG TAB PO SCH (06:27)
[2020-09-14] MEDS: SIMETHICONE 80 MG CHEWABLE PO SCH ×3 (06:28→16:42)
[2020-09-14] MEDS: ACETAMINOPHEN TAB 325 MG TAB PO SCH ×2 (06:28→12:13)
[2020-09-14] MEDS: BUDESONIDE 0.5 MG/2 ML NEBU INHALATION SCH (08:10)
[2020-09-14] MEDS: IPRATROPIUM-ALBUTEROL 3 ML NEB INHALATION SCH ×3 (08:10→15:55)
[2020-09-14] MEDS: BACLOFEN 10 MG TAB PO SCH (08:48)
[2020-09-14] MEDS: SERTRALINE 100 MG TAB PO SCH (08:48)
[2020-09-14] MEDS: allopurinoL 100 MG TAB PO SCH (08:48)
[2020-09-14] MEDS: MAGNESIUM OXIDE 400 MG TAB PO SCH ×2 (08:48→16:42)
[2020-09-14] MEDS: LACTULOSE 20 GM/30 ML CUP PO SCH (08:48)
--- NOTE | 2020-09-14 09:06 | P.GSCN ---
History of Present Illness Consult date: 09/14/20 Reason for Consult: Bilateral ureteral stents History of present illness: Ms Yanez is a 85 yo female with hx of spetic stones, S/P bilateral ureteral stent placements by Dr aMrk on 08/30, She was [facility]ently [facility], she presented back on 09/09 with shortness of breath, since her admission her respiratory status has improved. She underwent a CT abd/pelvis on presentation, that showed stent in adequate location with bilateral hydronephrosis. Her urine culture on presentation was growing enteroccocus, ID is onboard and she is currently on Vancomycin. At this time she denies any flank pain, gross hematuria or dysuria Review of Systems - Constitutional Denies fever, Denies weight loss - EENT Ears, nose, mouth and throat: Denies dysphagia - Cardiovascular Denies chest pain, Denies shortness of breath - Respiratory Reports dyspnea - Gastrointestinal Reports as per HPI - Genitourinary Genitourinary: Denies dysuria, Denies hematuria Past Medical History Past Medical History: CVA/TIA, GERD/Reflux, Hypertension, Memory Impairment, Osteoarthritis (OA), Seizure Disorder, Thyroid Disorder Additional Past Medical History / Comment(s): restless leg syndrome, hemiplegia, hemiparesis, anemia, History of Any Multi-Drug Resistant Organisms: ESBL, MRSA Year Discovered:: 08/30/20 ESBL/ MRSA 2008 MDRO Source:: ESBL URINE MRSA STOOL Past Surgical History: Back Surgery, Cholecystectomy Additional Past Surgical History / Comment(s): ileostomy Past Anesthesia/Blood Transfusion Reactions: No Reported Reaction Past Psychological History: Anxiety Additional Psychological History / Comment(s): per pt's daughter Smoking Status: Never smoker Past Alcohol Use History: Unable to Obtain Past Drug Use History: Unable to Obtain Additional Drug Use History / Comment(s): per patient's daughter, 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 - Past Family History Father Family Medical History: Cancer Additional Family Medical History / Comment(s): lung CA Mother Family Medical History: Cancer Sister(s) Additional Family Medical History / Comment(s): emphysema Medications and Allergies Home Medications Medication Instructions Recorded Confirmed Type Aspirin 81 mg PO HS@199909/18/18 09/08/20 History Levothyroxine Sodium [Synthroid] 50 mcg PO DAILY@49909/18/18 09/08/20 History Melatonin 3 mg PO HS@199909/18/18 09/08/20 History Sertraline [Zoloft] 100 mg PO DAILY 09/18/18 09/08/20 History Lactulose 30 gm PO BID 06/08/19 09/08/20 History Primidone [Mysoline] 25 mg PO HS@199906/08/19 09/08/20 History Carbidopa-Levodopa 25-100 mg 1 tab PO AC-BID@0700,1300 01/12/20 09/08/20 History [Sinemet 25-100 mg] Mag Hydrox/Aluminum Hyd/Simeth 30 ml PO Q6H PRN 01/12/20 09/08/20 History [Mylanta Maximum Strength Liq] Metoprolol Tartrate [Lopressor] 12.5 mg PO BID@0700,1900 01/12/20 09/08/20 History rOPINIRole HCL [Requip] 0.5 mg PO TID@0700,1300,1900 01/12/20 09/08/20 History Baclofen [Lioresal] 10 mg PO DAILY tab 01/16/20 09/08/20 Rx Benzocaine [Anbesol] 1 applic MUCOUS MEM TID PRN 08/29/20 09/08/20 History Benzocaine/Menthol [Cepacol Sore 1 lozenge MM Q4H PRN 08/29/20 09/08/20 History Throat Lozenge] Pantoprazole Sodium [Protonix] 40 mg PO DAILY 08/29/20 09/08/20 History Simethicone Chew [Mylicon Chew] 80 mg PO AC-TID@07,12,17 08/29/20 09/08/20 History amLODIPine [Norvasc] 10 mg PO DAILY@0500 08/29/20 09/08/20 History levETIRAcetam [Keppra] 500 mg PO BID@0700,1900 08/29/20 09/08/20 History Budesonide [Pulmicort] 0.5 mg INHALATION RT-BID ml 09/07/20 09/08/20 Rx Ertapenem [INVanz] 1 gm IVPB Q24H #8 bag 09/07/20 09/08/20 Rx HYDROcodone/APAP 5-325MG [[place] 1 tab PO Q8H PRN #10 tab 09/07/20 09/08/20 Rx 5-325] Ipratropium-Albuterol Nebulize 3 ml INHALATION RT-QID ml 09/07/20 09/08/20 Rx [Duoneb 0.5 mg-3 mg/3 ml Soln] allopurinoL [Zyloprim] 200 mg PO DAILY tab 09/07/20 09/08/20 Rx traMADol HCL 50 mg PO Q6H #10 tab 09/07/20 09/08/20 Rx Acetaminophen [Tylenol 8 Hour] 650 mg PO Q8H 09/08/20 09/08/20 History Allergies Allergy/AdvReac Type Severity Reaction Status Date / Time amoxicillin [From Augmentin] Allergy Unknown Verified 09/08/20 06:36 clavulanic acid Allergy Unknown Verified 09/08/20 06:36 [From Augmentin] codeine Allergy Unknown Verified 09/08/20 06:36 Surgical - Exam Vital Signs Temp Pulse Resp BP Pulse Ox 98.5 F 101 H 19 120/100 96 09/08/20 02:15 09/08/20 02:15 09/08/20 02:15 09/08/20 02:15 09/08/20 02:15 - General no distress, no pain - Eyes PERRL, normal ocular movement - ENT normal nares, normal mucosa, no hearing loss - Respiratory normal expansion, normal respiratory effort - Abdomen Abdomen: soft, non tender - Psychiatric oriented to person, oriented to place, speech is normal Results - Labs 09/13/20 09:26 09/13/20 09:26 Abnormal Lab Results - Last 24 Hours (Table) 09/13/20 09/13/20 Range/Units 09:26 09:26 RBC 3.34 L (3.80-5.40) m/uL Hgb 10.0 L (11.4-16.0) gm/dL Hct 33.8 L (34.0-46.0) % MCV 101.1 H (80.0-100.0) fL MCHC 29.7 L (31.0-37.0) g/dL Sodium 136 L (137-145) mmol/L Potassium 3.1 L (3.5-5.1) mmol/L Chloride 85 L (98-107) mmol/L Carbon Dioxide 44 H* (22-30) mmol/L Glucose 130 H (74-99) mg/dL Microbiology - Last 24 Hours (Table) 09/09/20 14:51 Blood Culture - Preliminary Blood No Growth after 96 hours Diabetes panel 09/13/20 Range/Units 09:26 Sodium 136 L (137-145) mmol/L Potassium 3.1 L (3.5-5.1) mmol/L Chloride 85 L (98-107) mmol/L Carbon Dioxide 44 H* (22-30) mmol/L BUN 17 (7-17) mg/dL Creatinine 0.78 (0.52-1.04) mg/dL Glucose 130 H (74-99) mg/dL Calcium 8.9 (8.4-10.2) mg/dL Calcium panel 09/13/20 Range/Units 09:26 Calcium 8.9 (8.4-10.2) mg/dL Pituitary panel 09/13/20 Range/Units 09:26 Sodium 136 L (137-145) mmol/L Potassium 3.1 L (3.5-5.1) mmol/L Chloride 85 L (98-107) mmol/L Carbon Dioxide 44 H* (22-30) mmol/L BUN 17 (7-17) mg/dL Creatinine 0.78 (0.52-1.04) mg/dL Glucose 130 H (74-99) mg/dL Calcium 8.9 (8.4-10.2) mg/dL Adrenal panel 09/13/20 Range/Units 09:26 Sodium 136 L (137-145) mmol/L Potassium 3.1 L (3.5-5.1) mmol/L Chloride 85 L (98-107) mmol/L Carbon Dioxide 44 H* (22-30) mmol/L BUN 17 (7-17) mg/dL Creatinine 0.78 (0.52-1.04) mg/dL Glucose 130 H (74-99) mg/dL Calcium 8.9 (8.4-10.2) mg/dL Assessment and Plan Assessment: Ms Yanez is a 85 yo female with hx of spetic stones, S/P bilateral ureteral stent placements by Dr Mark on 08/30, She was [facility]ently [facility], she presented back on 09/09 with shortness of breath, She underwent a CT abd/pelvis on presentation, that showed stent in adequate location with bilateral hydronephrosis. Her urine culture on presentation was growing enteroccocus, ID is onboard and she is currently on Vancomycin. I reviewed the CT stent in adequate location, no need for stent change. At this time recommend to continue abx for her UTI, She will be setup for bilateral ureteroscopy to address her stone as an outpatient with Dr Zavala once her resopiratory status improves
[2020-09-14 09:25] VITALS: RESP 20
[2020-09-14 09:54] LABS: Calcium 9.3 mg/dL (8.4-10.2); Magnesium 1.4 mg/dL (1.6-2.3); Potassium 3.7 mmol/L (3.5-5.1)
[2020-09-14 11:43] LABS: Basophils # (A) 0.1 k/uL (0-0.2); Basophils % (A) 1 %; Eosinophils # (A) 0.7 k/uL (0-0.7); Eosinophils % (A) 10 %; HCT 33.8 % (34.0-46.0); HGB 10.1 gm/dL (11.4-16.0); Hypochromasia Marked; Lymphocytes # (A) 1.8 k/uL (1.0-4.8); Lymphocytes % (A) 27 %; MCH 30.7 pg (25.0-35.0); MCHC 29.8 g/dL (31.0-37.0); Macrocytosis Slight; Mean Platelet Volume 11.2; Monocytes # (A) 0.4 k/uL (0-1.0); Monocytes % (A) 5 %; Neutrophils # (A) 3.7 k/uL (1.3-7.7); Neutrophils % (A) 55 %; Platelet Count 263 k/uL (150-450); RBC 3.29 m/uL (3.80-5.40); RDW 14.7 % (11.5-15.5); WBC 6.8 k/uL (3.8-10.6)
[2020-09-14 11:52] VITALS: TEMP 97.9
[2020-09-14] MEDS: HYDROcodone/APAP 5-325MG 1 EACH TAB PO PRN (12:18)
[2020-09-14] MEDS: MAGNESIUM SULFATE-D5W PMX 1 GM in DEXTROSE/WATER 1 100ML.BAG IVPB SCH ×2 (12:41→13:45)
--- NOTE | 2020-09-14 12:45 | P.PN ---
Subjective Progress Note Date: 09/14/20 Principal diagnosis: Congestive heart failure. This is an 85-year-old female with history of multiple medical problems including previous CVA, dementia, hydronephrosis, history of ureteral stent placement on 08/30/2020, history of hypertension, patient was recently hospitalized for sepsis, urinary tract infection secondary to Proteus mirabilis, and she had Proteus mirabilis bacteremia. This was secondary to urinary tract infection, and I believe it was ESBL Proteus mirabilis. Patient was discharged home on 09/07/2020, however while at the medical [facility], patient was complaining of shortness of breath, but no cough, no fever, no chills, no hemoptysis, and her O2 saturation was noted to be dropping. Patient was seen in the ER, and her CT of the chest showed small right-sided pleural effusion, associated right basilar atelectasis, troponins where slightly elevated, and her BNP level was elevated almost 4000. Patient was admitted, and this consult was initiated. Echocardiogram from the last admission showed good LV function but it did show moderately enlarged right ventricle, moderate severe tricuspid regurgitation, and right-sided pulmonary hypertension with RVSP of 49. Patient tested negative for COVID-19. Considering the findings and her abnormal chest x-ray and CT of the chest, this consult was initiated. I reviewed the CT of the chest on this patient yesterday, and I recommended aggressive diuresis, follow-up chest x-ray today showed significant improvement with very minimal pleural effusion on the right side compared to the chest x-ray on admission, an ultrasound showed only a 3.0 cm pocket on the right side, and a small tiny pocket of fluid on the left side. Neither one is large enough to perform safe thoracentesis. Hence I will recommend that we continue diuretics, as the presentation seems to be more of a presentation of congestive heart failure and bilateral pleural effusions responding overnight to diuresis. Not to mention the patient had elevated BNP level on admission. Looking at her urinalysis, patient seems to have evidence of urinary tract infection, and final culture is pending, I would not be surprised if the cultures come back positive for Proteus mirabilis again. May have to be seen by infectious disease for her ESBL infection. Patient was reevaluated today on 09/10/2020, patient is feeling better, breathing a lot easier, she is actually on room air, obviously she is responding well to diuretics. O2 saturation is 93% on room air, patient is afebrile, vital signs are stable. CBC is relatively normal, renal profile is normal. Electrolytesenc normal. Urinalysis remains abnormal, I believe cultures are pending. Pro- calcitonin is not significantly or clinically elevated. Patient was reevaluated today on 09/11/2020, patient is doing great, sitting in bed, in no distress, she is on 3 L nasal cannula with O2 sat showed 95%, patient denies any cough no wheezing no shortness of breath. CT of the abdomen and pelvis showed bilateral cortical ureteral stents with moderate bilateral hydroureteronephrosis, however that is being addressed by the admitting physician. Pulmonary-gagnon patient is doing great. Reevaluated today on 09/12/2020, patient continues to do well, she is on 2 L nasal cannula, and her O2 saturation is ranging between 94-96%. Patient is afebrile, not in any distress, she is hemodynamically stable blood pressure is 126/66. CBC is normal basic metabolic profile is normal except elevated bicarb of 43. Renal profile is normal, patient is receiving treatment for urinary tract infection. Her pro calcitonin level was noted to be a bit high could be related to her bacterial infection in the urine. Although right lower lobe pneumonia is not entirely ruled out but felt to be less likely. Progress note dated 09/13/2020. The patient is reevaluated. She remains a room 359. The patient remains on 2 L nasal cannula. Her temperature is normal as was her blood pressure place. She is hemodynamically stable. She is in no acute distress. Lab data from today includes a white count of 7.1, hemoglobin 10, hematocrit 33.8, and platelet count 247,000. Sodium 136, potassium 3.1, chlorides 85, CO2 44, anion gap 7, BUN 17, and creatinine 0.78. No recent x-ray today. Urine specimen from September 09 showing enterococcus facecium. It is sensitive to vancomycin, which is what she is on. Stable from the pulmonary standpoint. Progress note dated 09/14/2020. Currently, this 85-year-old female, with history of multiple medical problems including CVA, dementia, hydronephrosis, history of ureteral stent placement, hypertension, among other things, is doing reasonably well. She is on saline at 10 mL an hour. She's getting O2 at 2 L/m by nasal cannula. She tells me that when she gets discharged, she'll be going back to [facility]. She is hoping to be discharged relatively soon. She states that her breathing is fine. She denies any chest pain or chest discomfort. There is no fever or chills. She is not coughing up any phlegm. White count is 6.8, hemoglobin 10.1, hematocrit 33.8, and platelet count 263,000. Sodium 138, potassium 3.7, chlorides 89, CO2 39, anion gap 10, BUN 16, creatinine 0.82. She was again seen by urology today, and nothing new is planned at this point. Objective - Vital Signs Vital signs: Vital Signs Temp 97.9 F 09/14/20 11:51 Pulse 65 09/14/20 11:51 Resp 20 09/14/20 11:51 BP 105/58 09/14/20 11:51 Pulse Ox 96 09/14/20 11:51 Intake & Output 09/13/20 09/14/20 09/14/20 18:59 06:59 18:59 Intake Total 840 240 Output Total 500 1100 Balance 340 -1100 240 Weight 66.5 kg Intake: Oral 840 240 Output: Urine 500 850 Stool 250 Other: Voiding Method External Catheter External Catheter External Catheter - Exam No acute distress, oriented 3. Currently on 2 L nasal O2. Saturations are in the mid 90s. HEENT examination is grossly unremarkable. Neck supple. Full range of motion. No adenopathy thyromegaly or neck vein distention. Cardiovascular examination reveals regular rhythm rate. S1-S2 normal. No S3 or S4. No discernible murmur noted. Heart rate 65 bpm. Heart sounds are distant. There is a grade 2/6 systolic murmur noted. Lungs reveal mostly clear breath sounds. A few scattered bibasilar crackles. No wheezes or rhonchi. Breath sounds equal. Abdomen soft bowel sounds are heard. No masses or tenderness. Extremities are intact. No cyanosis clubbing or edema. Skin is without rash or lesion. Neurologic examination is brief but nonfocal. - Labs CBC & Chem 7: 09/14/20 08:06 09/14/20 08:06 Labs: Abnormal Lab Results - Last 24 Hours (Table) 09/14/20 09/14/20 Range/Units 08:06 08:06 RBC 3.29 L (3.80-5.40) m/uL Hgb 10.1 L (11.4-16.0) gm/dL Hct 33.8 L (34.0-46.0) % MCV 103.0 H (80.0-100.0) fL MCHC 29.8 L (31.0-37.0) g/dL Chloride 89 L (98-107) mmol/L Carbon Dioxide 39 H (22-30) mmol/L Glucose 131 H (74-99) mg/dL Magnesium 1.4 L (1.6-2.3) mg/dL Microbiology - Last 24 Hours (Table) 09/09/20 14:51 Blood Culture - Preliminary Blood No Growth after 96 hours Assessment and Plan Assessment: Acute on chronic hypoxemic respiratory failure, secondary to acute on chronic diastolic CHF. Bilateral pleural effusions, right greater than left. Enterococcus species urinary tract infection, currently on vancomycin. Bilateral ureteral hydronephrosis, status post bilateral ureteral stents on 08/30/2020. Pulmonary hypertension. Chronic anemia. Benign essential hypertension. History of seizure disorder. History of degenerative joint disease. History of CVA. History of recurrent urinary tract sections. Plan: Plan dated 09/13/2020. The patient will continue on diuretics, and incentive spirometry. Ultrasound of the chest was reviewed, and we doubt thoracentesis would be of value at this point. The patient's currently on appropriate antibiotics. The patient's on vancomycin for enterococcus species. We will continue to follow the patient and make recommendations where appropriate. Overall prognosis remains guarded given her age and multiple medical problems. Plan dated 09/14/2020. Currently, the patient's doing well from the pulmonary standpoint. She's on 2 L nasal cannula. She was again seen by urology. Nothing more plan from their [facility] at this time. They recommended additional antibiotics for her urinary tract infection. From the pulmonary standpoint, nothing more to offer this patient at this time. Pleural effusion was rather small and not worth doing a thoracentesis on. We will continue to follow. Prognosis is guarded. No additional recommendations at this time. Time with Patient: Less than 30
--- NOTE | 2020-09-14 13:38 | PN ---
PROGRESS NOTE DATE OF SERVICE: 09/14/2020 REASON FOR FOLLOWUP: Recurrent urinary tract infection. INTERVAL HISTORY: The patient is currently afebrile. Patient is breathing comfortably. Patient denies having any chest pain. No shortness of breath. Occasional cough. No abdominal pain or diarrhea. PHYSICAL EXAMINATION: Blood pressure is 113/67, pulse of 60, temperature 98. She is 95% ON 2 L nasal cannula. General description is an elderly female up in the chair in no distress. RESPIRATORY SYSTEM: Unlabored breathing. Crackles at bases bilaterally. HEART: S1, S2. Regular rate and rhythm. ABDOMEN: Soft, no tenderness. LABS: BUN of 16, creatinine 0.82. DIAGNOSTIC IMPRESSION AND PLAN: Patient with recurrent urinary tract infection with recent initial urine culture positive for ESBL Proteus for which the patient has completed almost 2 weeks of IV Invanz. Now repeat is showing Enterococcus faecium, vancomycin sensitive. Patient is on vancomycin to continue pharmacy to dose, target of 15, for another 7 to 10 days. In view of the complicated urinary tract infection and persistent hydronephrosis, close outpatient followup with Urology. MMODL / IJN: [id number] /
--- NOTE | 2020-09-14 13:40 | P.PN ---
Subjective This is a pleasant 85-year-old female past medical history significant for CVA, GERD, dementia, hydronephrosis status post ureteral stent for 1221, chronic kidney disease and hypertension. She is seen and examined resting comfortably in no acute distress. She has no symptoms of chest pain or shortness of breath. Blood pressure 105/58 heart rate 65 afebrile maintaining oxygen saturation on nasal cannula. Laboratory data reviewed, WBC 6.8, hemoglobin 10.1, platelets 263, sodium 138, potassium 3.7, creatinine 0.82 and magnesium 1.4. Currently maintained on amlodipine 5 mg daily, aspirin 81 mg daily, Lasix IV and Lopressor 12.5 mg twice a day. GENERAL: Well-appearing, well-nourished and in no acute distress. NECK: Supple without JVD or thyromegaly. LUNGS: Breath sounds clear to auscultation bilaterally. Respiration equal and unlabored. No wheezes, rales or rhonchi. Diminished bilaterally. HEART: Regular rate and rhythm without murmurs, rubs or gallops. S1 and S2 heard. EXTREMITIES: Normal range of motion, no edema. No clubbing or cyanosis. Peripheral pulses intact. ASSESSMENT Acute on chronic diastolic heart failure Pulmonary hypertension Acute on chronic hypoxemic respiratory failure Urinary tract infection Hydronephrosis status post bilateral ureteral stents Hypertension History of CVA PLAN Transitioned to oral diuretics. Stable for discharge from a cardiac perspective. Follow-up with Dr. Anderson in 2 weeks. Nurse Practitioner note has been reviewed, I agree with a documented findings and plan of care. Patient was seen and examined. Objective - Vital Signs Vital signs: Vital Signs Temp 97.9 F 09/14/20 11:51 Pulse 65 09/14/20 11:51 Resp 20 09/14/20 11:51 BP 105/58 09/14/20 11:51 Pulse Ox 96 09/14/20 11:51 Intake & Output 09/13/20 09/14/20 09/14/20 18:59 06:59 18:59 Intake Total 840 240 Output Total 500 1100 Balance 340 -1100 240 Weight 66.5 kg Intake: Oral 840 240 Output: Urine 500 850 Stool 250 Other: Voiding Method External Catheter External Catheter External Catheter - Labs CBC & Chem 7: 09/14/20 08:06 09/14/20 08:06 Labs: Abnormal Lab Results - Last 24 Hours (Table) 09/14/20 09/14/20 Range/Units 08:06 08:06 RBC 3.29 L (3.80-5.40) m/uL Hgb 10.1 L (11.4-16.0) gm/dL Hct 33.8 L (34.0-46.0) % MCV 103.0 H (80.0-100.0) fL MCHC 29.8 L (31.0-37.0) g/dL Chloride 89 L (98-107) mmol/L Carbon Dioxide 39 H (22-30) mmol/L Glucose 131 H (74-99) mg/dL Magnesium 1.4 L (1.6-2.3) mg/dL Microbiology - Last 24 Hours (Table) 09/09/20 14:51 Blood Culture - Preliminary Blood No Growth after 96 hours
--- NOTE | 2020-09-14 14:28 | P.DS ---
Providers Date of admission: 09/09/20 15:10 Expected date of discharge: 09/14/20 Attending physician: Radha Phelps Consults: 09/08/20 04:58 Consult Physician Routine Consulting Provider: Asad Wilhelm Consult Reason/Comments: CHF exacerbation Do you want consulting provider notified?: Yes 09/08/20 15:40 Consult Physician Routine Consulting Provider: Kanu Canales Consult Reason/Comments: rt pneumonia Do you want consulting provider notified?: Yes Consult Physician Routine Consulting Provider: Mahad Mix Consult Reason/Comments: esbl history Do you want consulting provider notified?: Yes 09/09/20 14:39 Consult Physician Routine Consulting Provider: Kanu Canales Consult Reason/Comments: rt pleural effusion Do you want consulting provider notified?: Yes 09/13/20 13:20 Consult Physician Routine Consulting Provider: Heron Zavala Consult Reason/Comments: hydronephrosis Do you want consulting provider notified?: Yes Primary care physician: Miguel Newton [facility] Course: Final diagnosis Shortness of breath, possible congestive heart failure acute exacerbation with acute on chronic diastolic dysfunction, ejection fraction 50-55% Troponin elevated up to 0.146. Possible acute non-ST segment elevation myocardial infarction Severe hypomagnesemia Right pleural effusion Change in mental status, acute metabolic encephalopathy, multifactorial with acute on chronic metabolic encephalopathy Hypercarbia History of recent ESBL Proteus bacteremia and urinary tract infection Possible right lower lobe pneumonia, as well as right pleural effusion Increased white blood count History of increased MCV Bilateral ureteral stents anemia of undetermined etiology History of CVA, TIA Gastroesophageal reflux disease Hypertension History of dementia History of degenerative joint disease History of seizure disorder Hypothyroidism History of cirrhosis history of hemiplegia history of hemiparesis History of MRSA History of anxiety Obesity with a body mass index of 25.1 Discharge disposition Patient is being discharged in a stable condition with guarded prognosis to [facility]. Patient will follow-up with Dr. Newton upon discharge. Patient will continue with IV antibiotics per infectious disease recommendations in the form of vancomycin with pharmacy to dose for the next 10 days. Patient also instructed to follow-up with urology in 2 weeks outpatient along with cardiology in [address] Anderson. Total time taken is greater than 35 minutes. Hospital course This is an 85-year-old female who was recently admitted with possible right pleu ral effusion and congestive heart failure acute exacerbation and is being closely monitored. Multiple medical consultations including cardiology, pulmonary, and infectious disease following. Patient is maintained on IV antibiotic therapy for ESBL in the urine and has recently underwent ureteral stent placement bilaterally with urology. Urine culture finalized showing Enterococcus faecium and patient was on ertapenem which was recently changed to vancomycin and infectious disease is following closely. Urology has been consulted for hydronephrosis and patient continues with indwelling Arroyo catheter. Patient is also continued on IV Lasix and will continue. Magnesium replaced and currently 1.8. Potassium today at 3.1 and will replace and repeat electrolytes. White blood count is 7.1 and hemoglobin is 10.0, sodium is 136 current creatinine is 0.78. 09/14/2020 Patient is seen and evaluated and follow-up requesting to go back to her facility. Cardiology and pulmonary following and patient has been transitioned oral Lasix. Patient also has a midline and infectious disease following for urinary tract infection and patient will continue with vancomycin with pharmacy to dose and close outpatient lab monitoring of creatinine. Patient will also follow-up with cardiology in the outpatient setting in [address] Anderson. Repeat labs also to monitor electrolytes along with magnesium in the outpatient setting. Currently no reports of chest pain, shortness of breath, or palpitations. Patient is afebrile. No reports of nausea or vomiting and patient is tolerating diet. Patient and family will further discuss palliative care in the outpatient setting. Guarded prognosis. On exam vital signs are stable. Cardio S1, S2 are muffled. Respiratory shows diminished breath sounds at the bases with no wheezing or rhonchi noted. Abdomen is soft and nontender. Nervous system shows mild diffuse weakness. Please refer to medication reconciliation sheet for a list of medications. Patient Condition at Discharge: Stable Plan - Discharge Summary Discharge Rx Participant: Yes New Discharge Prescriptions: New amLODIPine [Norvasc] 5 mg PO DAILY@0500 tab Furosemide [Lasix] 40 mg PO BID@0900,1600 tab Magnesium Oxide [Mag-Ox] 400 mg PO TID tab Acetaminophen Tab [Tylenol] 650 mg PO TID@0500,1300,2100 tab Vancomycin 1,250 mg IVPB Q16H 10 Days #20 vial ALPRAZolam [Xanax] 0.25 mg PO BID #6 tab Continue Melatonin 3 mg PO HS@1999 Sertraline [Zoloft] 100 mg PO DAILY Aspirin 81 mg PO HS@1999 Levothyroxine Sodium [Synthroid] 50 mcg PO DAILY@0500 Lactulose 30 gm PO BID Primidone [Mysoline] 25 mg PO HS@1999 Mag Hydrox/Aluminum Hyd/Simeth [Mylanta Maximum Strength Liq] 30 ml PO Q6H PRN PRN Reason: Indigestion rOPINIRole HCL [Requip] 0.5 mg PO TID@0700,1300,1900 Metoprolol Tartrate [Lopressor] 12.5 mg PO BID@0700,1900 Carbidopa-Levodopa 25-100 mg [Sinemet 25-100 mg] 1 tab PO AC-BID@0700,1300 Baclofen [Lioresal] 10 mg PO DAILY tab Pantoprazole Sodium [Protonix] 40 mg PO DAILY Simethicone Chew [Mylicon Chew] 80 mg PO AC-TID@07,, Benzocaine/Menthol [Cepacol Sore Throat Lozenge] 1 lozenge MM Q4H PRN PRN Reason: COUGH/CONGESTION allopurinoL [Zyloprim] 200 mg PO DAILY tab Benzocaine [Anbesol] 1 applic MUCOUS MEM TID PRN PRN Reason: MOUTH PAIN levETIRAcetam [Keppra] 500 mg PO BID@0700,1900 Ipratropium-Albuterol Nebulize [Duoneb 0.5 mg-3 mg/3 ml Soln] 3 ml INHALATION RT-QID ml Budesonide [Pulmicort] 0.5 mg INHALATION RT-BID ml Acetaminophen [Tylenol 8 Hour] 650 mg PO Q8H HYDROcodone/APAP 5-325MG [[place] 5-325] 1 tab PO Q8H PRN #10 tab PRN Reason: Pain traMADol HCL 50 mg PO Q6H #10 tab Discontinued amLODIPine [Norvasc] 10 mg PO DAILY@0500 Ertapenem [INVanz] 1 gm IVPB Q24H #8 bag Discharge Medication List Aspirin 81 mg PO HS@199909/18/18 [History] Levothyroxine Sodium [Synthroid] 50 mcg PO DAILY@0500 09/18/18 [History] Melatonin 3 mg PO HS@199909/18/18 [History] Sertraline [Zoloft] 100 mg PO DAILY 05/01/19 [History] Lactulose 30 gm PO BID 06/08/19 [History] Primidone [Mysoline] 25 mg PO HS@199906/08/19 [History] Carbidopa-Levodopa 25-100 mg [Sinemet 25-100 mg] 1 tab PO AC-BID@0700,1300 01/12/20 [History] Mag Hydrox/Aluminum Hyd/Simeth [Mylanta Maximum Strength Liq] 30 ml PO Q6H PRN 01/12/20 [History] Metoprolol Tartrate [Lopressor] 12.5 mg PO BID@0700,1900 01/12/20 [History] rOPINIRole HCL [Requip] 0.5 mg PO TID@0700,1300,1900 01/12/20 [History] Baclofen [Lioresal] 10 mg PO DAILY tab 01/16/20 [Rx] Benzocaine [Anbesol] 1 applic MUCOUS MEM TID PRN 08/29/20 [History] Benzocaine/Menthol [Cepacol Sore Throat Lozenge] 1 lozenge MM Q4H PRN 08/29/20 [History] Pantoprazole Sodium [Protonix] 40 mg PO DAILY 08/29/20 [History] Simethicone Chew [Mylicon Chew] 80 mg PO AC-TID@07,12,17 08/29/20 [History] levETIRAcetam [Keppra] 500 mg PO BID@0700,1900 08/29/20 [History] Budesonide [Pulmicort] 0.5 mg INHALATION RT-BID ml 09/07/20 [Rx] Ipratropium-Albuterol Nebulize [Duoneb 0.5 mg-3 mg/3 ml Soln] 3 ml INHALATION RT-QID ml 09/07/20 [Rx] allopurinoL [Zyloprim] 200 mg PO DAILY tab 09/07/20 [Rx] Acetaminophen [Tylenol 8 Hour] 650 mg PO Q8H 09/08/20 [History] ALPRAZolam [Xanax] 0.25 mg PO BID #6 tab 09/14/20 [Rx] Acetaminophen Tab [Tylenol] 650 mg PO TID@0500,1300,2100 tab 09/14/20 [Rx] Furosemide [Lasix] 40 mg PO BID@0900,1600 tab 09/14/20 [Rx] HYDROcodone/APAP 5-325MG [[place] 5-325] 1 tab PO Q8H PRN #10 tab 09/14/20 [Rx] Magnesium Oxide [Mag-Ox] 400 mg PO TID tab 09/14/20 [Rx] Vancomycin 1,250 mg IVPB Q16H 10 Days #20 vial 09/14/20 [Rx] amLODIPine [Norvasc] 5 mg PO DAILY@0500 tab 09/14/20 [Rx] traMADol HCL 50 mg PO Q6H #10 tab 09/14/20 [Rx] Follow up Appointment(s)/Referral(s): Miguel Newton MD [Primary Care Provider] - 1-2 days Heron Zavala MD [STAFF PHYSICIAN] - 2 Weeks Donn Anderson DO [STAFF PHYSICIAN] - 2 Weeks Ambulatory/Diagnostic Orders: Complete Blood Count w/diff [LAB.AMB] Time Frame: 3 Days, Location: None Selected Activity/Diet/Wound Care/Special Instructions: [email or web address] as tolerated Continue with IV antibiotics in the form of vancomycin with pharmacy to dose for the next 10 days Follow-up with urology outpatient. Repeat labs in 2-3 days to monitor CBC and BMP and magnesium Continue heart healthy diet Discharge Disposition: TRANSFER TO SNF/ECF
[2020-09-14 14:38] LABS: Large Platelets Present
[2020-09-14] MEDS: VANCOMYCIN 1,250 MG in SODIUM CHLORIDE 0.9% 250 ML IVPB SCH (15:27)
[2020-09-14] MEDS ORDERED: FUROSEMIDE 40 MG TAB PO SCH (16:00)
[2020-09-14 16:19] VITALS: BP 142/65; PULSE 62
[2020-09-15] MEDS ORDERED: amLODIPine 5 MG TAB PO SCH (05:00)
[2020-09-15] MEDS ORDERED: VANCOMYCIN TROUGH DUE 1 EACH MISC MISCELLANE ONE (05:00)
== END 2020-09-14 17:42 | DRG 280 ==
LOC: EC 02:11 → 3SCARD 04:58 → OBSVTOIN 09-09 15:10
PROVIDERS: ADMIT Hospitalist; ATTEND Hospitalist
DX: I13.0 Hypertensive heart and chronic kidney disease with heart failure and stage 1 through stage 4 chronic kidney disease, or unspecified chronic kidney disease (principal); J96.21 Acute and chronic respiratory failure with hypoxia; I21.4 Non-ST elevation (NSTEMI) myocardial infarction; J18.9 Pneumonia, unspecified organism; G93.41 Metabolic encephalopathy; I50.33 Acute on chronic diastolic (congestive) heart failure; N13.30 Unspecified hydronephrosis; N17.9 Acute kidney failure, unspecified; N39.0 Urinary tract infection, site not specified; Z68.45 Body mass index [BMI] 70 or greater, adult; J98.11 Atelectasis; Z16.12 Extended spectrum beta lactamase (ESBL) resistance; E87.3 Alkalosis; Z20.822 Contact with and (suspected) exposure to COVID-19; F03.90 Unspecified dementia, unspecified severity, without behavioral disturbance, psychotic disturbance, mood disturbance, and anxiety; G25.81 Restless legs syndrome; K21.9 Gastro-esophageal reflux disease without esophagitis; Z86.73 Personal history of transient ischemic attack (TIA), and cerebral infarction without residual deficits; I07.1 Rheumatic tricuspid insufficiency; I27.20 Pulmonary hypertension, unspecified; D64.9 Anemia, unspecified; B96.4 Proteus (mirabilis) (morganii) as the cause of diseases classified elsewhere; G40.909 Epilepsy, unspecified, not intractable, without status epilepticus; M19.90 Unspecified osteoarthritis, unspecified site; Z87.891 Personal history of nicotine dependence; E03.9 Hypothyroidism, unspecified; Z86.14 Personal history of Methicillin resistant Staphylococcus aureus infection; F41.9 Anxiety disorder, unspecified; E66.9 Obesity, unspecified; Z79.899 Other long term (current) drug therapy; Z87.440 Personal history of urinary (tract) infections; Z79.82 Long term (current) use of aspirin; Z79.890 Hormone replacement therapy; E07.9 Disorder of thyroid, unspecified; E83.42 Hypomagnesemia; B96.20 Unspecified Escherichia coli [E. coli] as the cause of diseases classified elsewhere; K74.60 Unspecified cirrhosis of liver; Z80.1 Family history of malignant neoplasm of trachea, bronchus and lung; Z82.5 Family history of asthma and other chronic lower respiratory diseases; E87.6 Hypokalemia; N18.9 Chronic kidney disease, unspecified
CPT/HCPCS: 36415; 71045; 71046; 71250; 74176; 76604; 80048; 80053; 81001; 82565; 83605; 83735; 83880; 84100; 84145; 84484; 85025; 85610; 85730; 87040; 87077; 87086; 87186; 87635; 93005; 93308; 94640; 94760; 96374; 99285

== ENCOUNTER 2020-10-05 14:58 | Observation (INO) | payer MEDICARE, BC, OTHER ==
--- NOTE | 2020-10-05 15:30 | ED ---
Chest Pain HPI - General Chief Complaint: Chest Pain Stated Complaint: unresponsive Time Seen by Provider: 10/05/20 15:00 Source: patient, EMS, RN notes reviewed Mode of arrival: EMS Limitations: no limitations - History of Present Illness Initial Comments: This is an 85-year-old female history of atrial fibrillation multiple medical problems including CHF who apparently started having retrosternal left-sided chest pain this morning she states it was a tightness moderate in severity throughout the morning. EMS was finally called she was brought here and apparently became unresponsive during the exam was red. She denies any palpitations fevers chills nausea vomiting sweats no shortness breath this time. Minimal chest discomfort she was given aspirin in route to. No other complaints or any other problems at this time MD Complaint: chest pain, other - Related Data Home Medications Medication Instructions Recorded Confirmed Aspirin 81 mg PO HS@199909/18/18 10/05/20 Levothyroxine Sodium [Synthroid] 50 mcg PO DAILY@0500 09/18/18 10/05/20 Melatonin 3 mg PO HS@199909/18/18 10/05/20 Sertraline [Zoloft] 100 mg PO DAILY 09/18/18 10/05/20 Lactulose 20 gm PO BID 06/08/19 10/05/20 Primidone [Mysoline] 25 mg PO HS@199906/08/19 10/05/20 Mag Hydrox/Aluminum Hyd/Simeth 30 ml PO Q6H PRN 01/12/20 10/05/20 [Mylanta Maximum Strength Liq] Metoprolol Tartrate [Lopressor] 12.5 mg PO BID@0700,1900 01/12/20 10/05/20 rOPINIRole HCL [Requip] 0.5 mg PO TID@0700,1300,1900 01/12/20 10/05/20 Benzocaine [Anbesol] 1 applic MUCOUS MEM TID PRN 08/29/20 10/05/20 Benzocaine/Menthol [Cepacol Sore 1 lozenge MM Q4H PRN 08/29/20 10/05/20 Throat Lozenge] Pantoprazole Sodium [Protonix] 40 mg PO DAILY 08/29/20 10/05/20 Simethicone Chew [Mylicon Chew] 80 mg PO AC-TID@07,12,17 08/29/20 10/05/20 levETIRAcetam [Keppra] 500 mg PO BID@0700,1900 08/29/20 10/05/20 ALPRAZolam [Xanax] 0.25 mg PO BID@0700,1900 10/05/20 10/05/20 Carbidopa-Levodopa ER 25-100Mg 1 tab PO BID@0700,1300 10/05/20 10/05/20 [Sinemet ER 25-100] Furosemide [Lasix] 40 mg PO BID@0700,1600 10/05/20 10/05/20 Ipratropium-Albuterol Nebulize 3 ml INHALATION RT-QID@,,,10/05/20 10/05/20 [Duoneb 0.5 mg-3 mg/3 ml Soln] Magnesium Oxide [Mag-Ox] 400 mg PO TID@0700,1300,1900 10/05/20 10/05/20 amLODIPine [Norvasc] 5 mg PO DAILY@0700 10/05/20 10/05/20 traMADol HCL 50 mg PO QID@05,,,10/05/20 10/05/20 Previous Rx's Medication Instructions Recorded Baclofen [Lioresal] 10 mg PO DAILY tab 01/16/20 Budesonide [Pulmicort] 0.5 mg INHALATION RT-BID ml 09/07/20 allopurinoL [Zyloprim] 200 mg PO DAILY tab 09/07/20 Acetaminophen Tab [Tylenol] 650 mg PO TID@0500,1300,2100 tab 09/14/20 HYDROcodone/APAP 5-325MG [[place] 1 tab PO Q8H PRN #10 tab 09/14/20 5-325] Allergies Allergy/AdvReac Type Severity Reaction Status Date / Time amoxicillin [From Augmentin] Allergy Unknown Verified 10/05/20 15:41 clavulanic acid Allergy Unknown Verified 10/05/20 15:41 [From Augmentin] codeine Allergy Unknown Verified 10/05/20 15:41 Review of Systems ROS Statement: Those systems with pertinent positive or pertinent negative responses have been documented in the HPI. ROS Other: All systems not noted in ROS Statement are negative. EKG Findings - EKG Results: EKG: interpreted by ERMD (Atrial fibrillation rate of 85 QRS 70 QT since QTC 432/514 prolonged QT) Past Medical History Past Medical History: CVA/TIA, GERD/Reflux, Hypertension, Memory Impairment, Osteoarthritis (OA), Seizure Disorder, Thyroid Disorder Additional Past Medical History / Comment(s): restless leg syndrome, hemiplegia, hemiparesis, anemia, History of Any Multi-Drug Resistant Organisms: ESBL, MRSA Date of last positivie culture/infection: 08/30/20 ESBL/ MRSA 2008 MDRO Source:: ESBL URINE MRSA STOOL Past Surgical History: Back Surgery, Cholecystectomy Additional Past Surgical History / Comment(s): ileostomy Past Anesthesia/Blood Transfusion Reactions: No Reported Reaction Past Psychological History: Anxiety Smoking Status: Never smoker Past Alcohol Use History: Unable to Obtain Past Drug Use History: Unable to Obtain - Past Family History Father Family Medical History: Cancer Additional Family Medical History / Comment(s): lung CA Mother Family Medical History: Cancer Sister(s) Additional Family Medical History / Comment(s): emphysema General Exam - General Exam Comments Initial Comments: This is a well-developed well-nourished awake alert oriented 3 female Limitations: no limitations General appearance: alert, in no apparent distress Head exam: Present: atraumatic, normocephalic, normal inspection Eye exam: Present: normal appearance, PERRL, EOMI. Absent: scleral icterus, conjunctival injection, periorbital swelling ENT exam: Present: normal exam, mucous membranes moist Neck exam: Present: normal inspection, full ROM, other (activity or bruits). Absent: tenderness, meningismus, lymphadenopathy Respiratory exam: Present: normal lung sounds bilaterally. Absent: respiratory distress, wheezes, rales, rhonchi, stridor, chest wall tenderness Cardiovascular Exam: Present: tachycardia, irregular rhythm. Absent: systolic murmur, diastolic murmur, rubs, gallop, clicks GI/Abdominal exam: Present: soft, normal bowel sounds. Absent: distended, tenderness, guarding, rebound, rigid Extremities exam: Present: normal inspection, full ROM, normal capillary refill. Absent: tenderness, pedal edema, joint swelling, calf tenderness Back exam: Present: normal inspection Neurological exam: Present: alert, oriented X3, CN II-XII intact Psychiatric exam: Present: normal affect, normal mood Skin exam: Present: warm, dry, intact, normal color. Absent: rash Course Vital Signs 10/05/20 10/05/20 15:01 17:23 Temperature 98.1 F Pulse Rate 71 65 Respiratory 16 18 Rate Blood Pressure 146/74 115/59 O2 Sat by Pulse 99 97 Oximetry Chest Pain MDM - MDM Imaging reviewed evidence of increased pulmonary vascular markings consistent with pulmonary hypertension otherwise improved from previous x-rays. Reevaluation patient reveals no evidence of recurrent chest pain he by Dr. Dexter in the emergency department. Patient be admitted for evaluation chest pain. Disposition Clinical Impression: Chest pain, Chronic anemia, Episode of unresponsiveness Disposition: ADMITTED IP TO THIS HOSP Condition: Fair Referrals: Miguel Newton MD [Primary Care Provider] - 1-2 days
[2020-10-05 16:00] LABS: Basophils # (A) 0.1 k/uL (0-0.2); Basophils % (A) 1 %; Eosinophils # (A) 0.6 k/uL (0-0.7); Eosinophils % (A) 7 %; HGB 9.1 gm/dL (11.4-16.0); Lymphocytes # (A) 1.8 k/uL (1.0-4.8); Lymphocytes % (A) 22 %; MCHC 32.5 g/dL (31.0-37.0); MCV 98.4 fL (80.0-100.0); Mean Platelet Volume 8.7; Monocytes # (A) 0.8 k/uL (0-1.0); Monocytes % (A) 10 %; Neutrophils % (A) 59 %; Platelet Count 215 k/uL (150-450); RBC 2.84 m/uL (3.80-5.40); RDW 14.7 % (11.5-15.5); WBC 8.6 k/uL (3.8-10.6)
--- NOTE | 2020-10-05 16:07 | XR ---
EXAMINATION TYPE: XR chest 2V DATE OF EXAM: 10/05/2020 COMPARISON: Chest x-ray 09/12/2020, chest CT 09/08/2020 HISTORY: Chest pain, altered mental status TECHNIQUE: Frontal and lateral views of the chest are obtained. FINDINGS: There is no focal air space opacity, pleural effusion, or pneumothorax seen. The cardiac silhouette size is remarkable for an enlarged heart, heart size may appear accentuated due to rotatio n. The osseous structures are stable, wedge compression deformity present at the midthoracic spine level as on prior CT, bone mineralization is reduced, thoracic spondylosis is present. Surgical clips present in the upper abdomen. The aorta is dense. Prominence of pulmonary artery may be indicative o f pulmonary artery hypertension, prominence of the lung volume is consistent with underlying COPD. In terstitium is mildly increased. Patient is rotated. Right paratracheal density is stable. IMPRESSION: Correlate for possible pulmonary artery hypertension, COPD. There is improved aeration a s compared to prior exam. Patient is rotated. Suspect cardiomegaly. Additional findings above.
[2020-10-05 16:10] LABS: Albumin 3.9 g/dL (3.5-5.0); Calcium 9.2 mg/dL (8.4-10.2); Magnesium 1.6 mg/dL (1.6-2.3); Total Bilirubin 0.4 mg/dL (0.2-1.3); Total Protein 8.4 g/dL (6.3-8.2)
[2020-10-05 16:18] LABS: Partial Thromboplastin Time 22.6 sec (22.0-30.0); Prothrombin Time 10.7 sec (9.0-12.0)
[2020-10-05] MEDS ORDERED: HEPARIN SODIUM 1,000 UN/ML (10ML VL) IV ONE (17:49)
[2020-10-05] MEDS ORDERED: BENZOCAINE 20 % GEL 15 GM TUBE MM PRN (17:49)
[2020-10-05] MEDS ORDERED: MAG HYDROX/AL HYDROX/SIMETH 30 ML CUP PO PRN (17:49)
[2020-10-05] MEDS ORDERED: LACTULOSE 20 GM/30 ML CUP PO PRN (17:49)
[2020-10-05] MEDS ORDERED: NITROGLYCERIN SL TABS 0.4 MG TAB SUBLINGUAL PRN (17:49)
[2020-10-05] MEDS ORDERED: MELATONIN 3 MG TABLET PO PRN (17:49)
[2020-10-05] MEDS ORDERED: BENZOCAINE/MENTHOL LOZENG 1 EACH LOZENGE MUCOUS MEM PRN (17:49)
--- NOTE | 2020-10-05 17:58 | P.HPIM ---
History of Present Illness 85-year-old [facility] resident was brought to ER with complaints of loss of consciousness and patient the did complain of left-sided chest pain mild to moderate pressure like sensation. Before her chest pressure like sensation shady castorena was up ambulating with a walker and just before that patient did eat and usually this chest pressure usually resolves with the Mylanta and patient thought it may be gas pain. Patient apparently became unresponsive and brought to ER. Patient may have had a syncopal episode. Patient appears to be dehydrated with dry patient was treated for heart failure during her last hospitalization patient is being treated for congestive heart failure chronic diastolic dysfunction. Patient had a normal ejection fraction patient is an 40 twice a day 4 Lasix. Patient creatinine did go up to 1.3 baseline around 0.8. X-ray today showed possible pulmonary hypertension. Patient had a BNP of around 1:30. EKG showed A. fib patient appears to be in chronic A. fib but rate controlled patient is not on any anti-coagulation because of her probably fall risk. First set of troponin is negative. Review of Systems R REVIEW OF SYSTEMS: CONSTITUTIONAL: No fever, no malaise, no fatigue. HEENT: No recent visual problems or hearing problems. Denied any sore throat. CARDIOVASCULAR: As mentioned in HPI PULMONARY: No shortness of breath, no cough, no hemoptysis. GASTROINTESTINAL: No diarrhea, no nausea, no vomiting, no abdominal pain. NEUROLOGICAL: No headaches, no weakness, no numbness. HEMATOLOGICAL: Denies any bleeding or petechiae. GENITOURINARY: Denies any burning micturition, frequency, or urgency. MUSCULOSKELETAL/RHEUMATOLOGICAL: Denies any joint pain, swelling, or any muscle pain. ENDOCRINE: Denies any polyuria or polydipsia. The rest of the 14-point review of systems is negative. Past Medical History Past Medical History: CVA/TIA, GERD/Reflux, Hypertension, Memory Impairment, Osteoarthritis (OA), Seizure Disorder, Thyroid Disorder Additional Past Medical History / Comment(s): restless leg syndrome, hemiplegia, hemiparesis, anemia, History of Any Multi-Drug Resistant Organisms: ESBL, MRSA Date of last positivie culture/infection: 08/30/20 ESBL/ MRSA 2008 MDRO Source:: ESBL URINE MRSA STOOL Past Surgical History: Back Surgery, Cholecystectomy Additional Past Surgical History / Comment(s): ileostomy Past Anesthesia/Blood Transfusion Reactions: No Reported Reaction Past Psychological History: Anxiety Smoking Status: Never smoker Past Alcohol Use History: Unable to Obtain Past Drug Use History: Unable to Obtain - Past Family History Father Family Medical History: Cancer Additional Family Medical History / Comment(s): lung CA Mother Family Medical History: Cancer Sister(s) Additional Family Medical History / Comment(s): emphysema Medications and Allergies Home Medications Medication Instructions Recorded Confirmed Type Aspirin 81 mg PO HS@199909/18/18 10/05/20 History Levothyroxine Sodium [Synthroid] 50 mcg PO DAILY@49909/18/18 10/05/20 History Melatonin 3 mg PO HS@199909/18/18 10/05/20 History Sertraline [Zoloft] 100 mg PO DAILY 09/18/18 10/05/20 History Lactulose 20 gm PO BID 06/08/19 10/05/20 History Primidone [Mysoline] 25 mg PO HS@199906/08/19 10/05/20 History Mag Hydrox/Aluminum Hyd/Simeth 30 ml PO Q6H PRN 01/12/20 10/05/20 History [Mylanta Maximum Strength Liq] Metoprolol Tartrate [Lopressor] 12.5 mg PO BID@0700,1900 01/12/20 10/05/20 History rOPINIRole HCL [Requip] 0.5 mg PO TID@0700,1300,1900 01/12/20 10/05/20 History Baclofen [Lioresal] 10 mg PO DAILY tab 01/16/20 10/05/20 Rx Benzocaine [Anbesol] 1 applic MUCOUS MEM TID PRN 08/29/20 10/05/20 History Benzocaine/Menthol [Cepacol Sore 1 lozenge MM Q4H PRN 08/29/20 10/05/20 History Throat Lozenge] Pantoprazole Sodium [Protonix] 40 mg PO DAILY 08/29/20 10/05/20 History Simethicone Chew [Mylicon Chew] 80 mg PO AC-TID@07,12,17 08/29/20 10/05/20 History levETIRAcetam [Keppra] 500 mg PO BID@0700,1900 08/29/20 10/05/20 History Budesonide [Pulmicort] 0.5 mg INHALATION RT-BID ml 09/07/20 10/05/20 Rx allopurinoL [Zyloprim] 200 mg PO DAILY tab 09/07/20 10/05/20 Rx Acetaminophen Tab [Tylenol] 650 mg PO TID@0500,1300,2100 tab 09/14/20 10/05/20 Rx HYDROcodone/APAP 5-325MG [[place] 1 tab PO Q8H PRN #10 tab 09/14/20 10/05/20 Rx 5-325] ALPRAZolam [Xanax] 0.25 mg PO BID@0700,1900 10/05/20 10/05/20 History Carbidopa-Levodopa ER 25-100Mg 1 tab PO BID@0700,1300 10/05/20 10/05/20 History [Sinemet ER 25-100] Furosemide [Lasix] 40 mg PO BID@0700,1600 10/05/20 10/05/20 History Ipratropium-Albuterol Nebulize 3 ml INHALATION RT-QID@05,,,10/05/20 10/05/20 History [Duoneb 0.5 mg-3 mg/3 ml Soln] Magnesium Oxide [Mag-Ox] 400 mg PO TID@0700,1300,1900 10/05/20 10/05/20 History amLODIPine [Norvasc] 5 mg PO DAILY@0700 10/05/20 10/05/20 History traMADol HCL 50 mg PO QID@05,,,10/05/20 10/05/20 History Allergies Allergy/AdvReac Type Severity Reaction Status Date / Time amoxicillin [From Augmentin] Allergy Unknown Verified 10/05/20 15:41 clavulanic acid Allergy Unknown Verified 10/05/20 15:41 [From Augmentin] codeine Allergy Unknown Verified 10/05/20 15:41 Physical Exam Vitals: Vital Signs Temp Pulse Resp BP Pulse Ox 10/05/20 17:23 65 18 115/59 97 10/05/20 15:01 98.1 F 71 16 146/74 99 Intake and Output 10/05/20 10/05/20 10/05/20 06:59 14:59 22:59 Other: Weight 85.275 kg PHYSICAL EXAMINATION: GENERAL: The patient is alert and oriented x3, not in any acute distress. Well developed, well nourished. HEENT: Pupils are round and equally reacting to light. EOMI. No scleral icterus. No conjunctival pallor. Normocephalic, atraumatic. No pharyngeal erythema. No thyromegaly. CARDIOVASCULAR: S1 and S2 present. No murmurs, rubs, or gallops. PULMONARY: Chest is clear to auscultation, no wheezing or crackles. ABDOMEN: Soft, nontender, nondistended, normoactive bowel sounds. No palpable organomegaly. MUSCULOSKELETAL: No joint swelling or deformity. EXTREMITIES: No cyanosis, clubbing, or pedal edema. NEUROLOGICAL: Gross neurological examination did not reveal any focal deficits. SKIN: No rashes. Results CBC & Chem 7: 10/05/20 15:56 10/05/20 15:56 Labs: Abnormal Lab Results - Last 24 Hours (Table) 10/05/20 10/05/20 Range/Units 15:56 15:56 RBC 2.84 L (3.80-5.40) m/uL Hgb 9.1 L (11.4-16.0) gm/dL Hct 28.0 L (34.0-46.0) % BUN 29 H (7-17) mg/dL Creatinine 1.39 H (0.52-1.04) mg/dL Glucose 125 H (74-99) mg/dL AST 39 H (14-36) U/L Total Protein 8.4 H (6.3-8.2) g/dL Lipase 493 H (23-300) U/L Assessment and Plan Plan: 1 chest pain pressure-like sensation: We'll rule out acute coronary syndromes will the due to more sets of troponins and EKGs cardiology will evaluate the patient further management as per cardiology -Episode of unresponsiveness patient may have had a syncopal episode which is again secondary to dehydration hold off on IV Lasix gentle hydration up to a liter. -History of congestive heart failure chronic diastolic dysfunction patient is not in acute exacerbation patient most probably will not require any Lasix at this time are upon discharge. -Mild non specific elevation of lipase no evidence of pancreatitis -Acute renal failure: Secondary to diuretics which will be held next and having gastroesophageal reflux disease next and-seizure disorder -Hypothyroidism -Anxiety disorder. -DVT prophylaxis with heparin subcutaneous -Chronic atrial fibrillation presently not on anticoagulation patient is rate controlled will continue with her metoprolol leave the decision of anticoagulation to patient and cardiology -Generalized deconditioning for which patient is [facility].
[2020-10-05] MEDS ORDERED: SODIUM CHLORIDE 0.9% 1,000 ML IV ONE (18:00)
[2020-10-05] MEDS ORDERED: SODIUM CHLORIDE 0.9% 1,000 ML IV SCH (18:00)
[2020-10-05] MEDS ORDERED: HEPARIN SOD,PORK IN 0.45% NACL 25,000 UNIT in 0.45% NACL 1 250ML.BAG IV SCH (18:00)
[2020-10-05] MEDS: HYDROcodone/APAP 5-325MG 1 EACH TAB PO PRN (18:26)
[2020-10-05] MEDS: MAGNESIUM SULFATE-D5W PMX 1 GM in DEXTROSE/WATER 1 100ML.BAG IVPB SCH ×2 (18:35→19:51)
[2020-10-05] MEDS: HYDROmorphone 0.5 MG/0.5 ML SYRINGE IVP PRN (18:37)
[2020-10-05] MEDS: METOPROLOL TARTRATE 12.5 MG TAB PO SCH (19:52)
[2020-10-05] MEDS: levETIRAcetam 500 MG TAB PO SCH (19:52)
[2020-10-05] MEDS: MAGNESIUM OXIDE 400 MG TAB PO SCH (19:58)
[2020-10-05] MEDS ORDERED: PRIMIDONE 25 MG TAB PO SCH (20:00)
[2020-10-05] MEDS ORDERED: ASPIRIN 81 MG PO SCH (20:00)
[2020-10-05] MEDS ORDERED: HEPARIN SODIUM,PORCINE/PF 5,000 UNIT/0.5 ML SYRINGE SQ SCH (21:00)
[2020-10-05] MEDS: IPRATROPIUM-ALBUTEROL 3 ML NEB INHALATION SCH (22:15)
[2020-10-05] MEDS: BUDESONIDE 0.5 MG/2 ML NEBU INHALATION SCH (22:15)
[2020-10-06] MEDS: ACETAMINOPHEN TAB 325 MG TAB PO SCH ×2 (00:28→04:21)
[2020-10-06] MEDS: traMADol 50 MG TAB PO SCH ×3 (01:03→12:02)
[2020-10-06] MEDS: HYDROcodone/APAP 5-325MG 1 EACH TAB PO PRN (01:03)
[2020-10-06] MEDS ORDERED: HEPARIN SODIUM 1,000 UN/ML (10ML VL) IVP PRN (02:10)
[2020-10-06] MEDS: BACLOFEN 10 MG TAB PO PRN ×2 (04:21→09:05)
[2020-10-06] MEDS ORDERED: LEVOTHYROXINE 50 MCG TAB PO SCH (05:00)
[2020-10-06 06:52] LABS: Calcium 9.3 mg/dL (8.4-10.2); Potassium 4.1 mmol/L (3.5-5.1)
[2020-10-06] MEDS ORDERED: SIMETHICONE 80 MG CHEWABLE PO SCH (07:00)
[2020-10-06] MEDS ORDERED: CARBIDOPA-LEVODOPA ER 25-100MG 1 EACH TABLET.ER PO SCH (07:00)
[2020-10-06] MEDS: IPRATROPIUM-ALBUTEROL 3 ML NEB INHALATION SCH ×2 (07:45→11:14)
[2020-10-06] MEDS: BUDESONIDE 0.5 MG/2 ML NEBU INHALATION SCH (07:47)
[2020-10-06] MEDS: METOPROLOL TARTRATE 12.5 MG TAB PO SCH (08:54)
[2020-10-06] MEDS: levETIRAcetam 500 MG TAB PO SCH (08:54)
[2020-10-06] MEDS: MAGNESIUM OXIDE 400 MG TAB PO SCH (08:54)
[2020-10-06] MEDS ORDERED: allopurinoL 100 MG TAB PO SCH (09:00)
[2020-10-06] MEDS ORDERED: ASPIRIN 325 MG TAB PO SCH (09:00)
[2020-10-06] MEDS ORDERED: SERTRALINE 100 MG TAB PO SCH (09:00)
[2020-10-06] MEDS ORDERED: PANTOPRAZOLE 40 MG TABLET PO SCH (09:00)
[2020-10-06] MEDS ORDERED: SODIUM CHLORIDE 0.9% 1,000 ML IV SCH (09:45)
[2020-10-06 11:26] VITALS: PULSE 78
[2020-10-06] MEDS: HYDROmorphone 0.5 MG/0.5 ML SYRINGE IVP PRN (13:59)
--- NOTE | 2020-10-06 14:23 | P.CRDCN ---
History of Present Illness History of present illness: HISTORY OF PRESENTING ILLNESS Patient is a pleasant 85 year old female with history of atrial fibrillation, CVA, GERD, dementia, altered mental status, hydronephrosis, s/p uretral stent 08/30/20, restless leg syndrome, right lower lobe consolidation, DEEPAK and HTN, diastolic heart failure, recent non-STEMI. She follows in the office with Dr. Anderson. We are being consulted for syncopal episode. Patient was initially hospitalized 08/28/2020 for UTI and hydronephrosis and ureteral stent placed. She was discharged and then presented back to the hospital on 09/08/20 from [facility] secondary to increased shortness of breath was found to have mildly elevated troponins, 0.08, 0.13, 0.14 and proBNP of 3900 with findings consistent with heart failure, she was diuresed with IV diuretics. Elevated troponins were not related to acute coronary syndrome. Echocardiogram on 09/01/2020 revealed ejection fraction 50-55%, moderately enlarged RV, paradoxical septal motion consistent with pressure overload, moderate to severe tricuspid regurgitation, moderate pulmonary hypertension RVSP 49. Patient was stabilized and discharged to nursing facility. Patient presents to the hospital with an episode of loss of consciousness and chest pain. Patient was ambulating with a walker she had left sided chest pain yesterday morning, felt as a tightness. She relates it to a possible gas pain and ususally takes Mylanta for that. EMS was called, apparently the patient became unresponsive. She does not recall this episode. DIAGNOSTICS: EKG- atrial fibrillation, heart rate 85, prolonged QTC 514. Prior EKGs in patient appears to be atrial fibrillation Limited Echo 09/09/20- EF 50-55%, mid inferior septal LV wall hypokinetic, RV is mildly enlarged, mild tricuspid regurgitation, moderate pulmonary hypertension, RVSP 51 mmHg Chest x-ray, patient is rotated. Possible pulmonary hypertension, COPD. Improved aeration as compared to prior exam. Laboratory data reviewedtroponin negative 3, WBC 8.6, hemoglobin 9.1, platelets 2:15, sodium 140, potassium 4.0, serum creatinine 1.39, BNP 162, COVID-19 negative, lipase 493 REVIEW OF SYSTEMS At the time of my exam: CONSTITUTIONAL: No fatigue and weakness. Denies fever or chills. CARDIOVASCULAR: + chest pain, Denies shortness of breath, no orthopnea, PND or palpitations. RESPIRATORY: Denies cough. GASTROINTESTINAL: Denies abdominal pain, diarrhea, constipation, nausea or vomiting. MUSCULOSKELETAL: Denies myalgias. NEUROLOGIC: +syncopal episode/unreponsive episode Denies numbness, tingling, headacbe or weakness. ENDOCRINE: Denies fatigue, weight change, polydipsia or polyurina. GENITOURINARY: Denies burning, hematuria or urgency with micturation. HEMATOLOGIC: Denies history of anemia or bleeding. PHYSICAL EXAMINATION Vitals reviewed CONSTITUTIONAL: No apparent distress. HEENT: Head is normocephalic. Pupils are equal, round. Mucous membranes of the mouth are dry. No JVD. No carotid bruit. CHEST EXAMINATION: Lungs diminished bilaterally. No tenderness to palpation HEART EXAMINATION: Irregular rate and rhythm. S1, S2 heard. No murmurs, gallops or rub. ABDOMEN: Soft, Positive bowel sounds. EXTREMITIES: 2+ peripheral pulses, no LE edema NEUROLOGIC EXAMINATION: No focal deficits noted ASSESSMENT Syncope, unclear etiology, possibly due to dehydration Chest pain, atypical, acute coronary syndrome has been ruled out, negative cardiac enzymes, no evidence of ischemia on EKG Atrial fibrillation - most likely chronic with prior EKGs patient appears to be in A fib. not on anticoagulation due to increased falls outpatient Acute Kidney Injury sCr 1.40 (previously 0.82 in 08/2020) most likely due to dehydration Chronic diastolic heart failure with preserved ejection fraction Pulmonary hypertension RVSP of 49 Moderate RV dilation Anemia Elevated lipase PLAN -Recommend IV fluids -No need for repeat echocardiogram at this time. -Patient is rate controlled -Discussed anticoagulation with patient's daughter, with the patient's acceptance. The daughter states she does remember someone mentioning this to her before, however is not entirely positive it was atrial fibrillation. At this time, she wants to continue aspirin and declines anticoagulation due to falls and safety risk with her mother. This was discussed with the patient and the daughter. -Patient to follow up in the office with Dr. Anderson. Past Medical History Past Medical History: CVA/TIA, GERD/Reflux, Hypertension, Memory Impairment, Osteoarthritis (OA), Seizure Disorder, Thyroid Disorder Additional Past Medical History / Comment(s): restless leg syndrome, hemiplegia, hemiparesis, anemia, History of Any Multi-Drug Resistant Organisms: ESBL, MRSA Date of last positivie culture/infection: 08/30/20 ESBL/ MRSA 2009 MDRO Source:: ESBL URINE MRSA STOOL Past Surgical History: Back Surgery, Cholecystectomy Additional Past Surgical History / Comment(s): ileostomy Past Anesthesia/Blood Transfusion Reactions: No Reported Reaction Past Psychological History: Anxiety Smoking Status: Never smoker Past Alcohol Use History: Unable to Obtain Past Drug Use History: Unable to Obtain - Past Family History Father Family Medical History: Cancer Additional Family Medical History / Comment(s): lung CA Mother Family Medical History: Cancer Sister(s) Additional Family Medical History / Comment(s): emphysema Medications and Allergies Home Medications Medication Instructions Recorded Confirmed Type Aspirin 81 mg PO HS@199909/18/18 10/05/20 History Levothyroxine Sodium [Synthroid] 50 mcg PO DAILY@49909/18/18 10/05/20 History Melatonin 3 mg PO HS@199909/18/18 10/05/20 History Sertraline [Zoloft] 100 mg PO DAILY 09/18/18 10/05/20 History Lactulose 20 gm PO BID 06/08/19 10/05/20 History Primidone [Mysoline] 25 mg PO HS@199906/08/19 10/05/20 History Mag Hydrox/Aluminum Hyd/Simeth 30 ml PO Q6H PRN 01/12/20 10/05/20 History [Mylanta Maximum Strength Liq] Metoprolol Tartrate [Lopressor] 12.5 mg PO BID@0700,1900 01/12/20 10/05/20 History rOPINIRole HCL [Requip] 0.5 mg PO TID@0700,1300,1900 01/12/20 10/05/20 History Benzocaine [Anbesol] 1 applic MUCOUS MEM TID PRN 08/29/20 10/05/20 History Benzocaine/Menthol [Cepacol Sore 1 lozenge MM Q4H PRN 08/29/20 10/05/20 History Throat Lozenge] Pantoprazole Sodium [Protonix] 40 mg PO DAILY 08/29/20 10/05/20 History Simethicone Chew [Mylicon Chew] 80 mg PO AC-TID@07,12,17 08/29/20 10/05/20 History levETIRAcetam [Keppra] 500 mg PO BID@0700,1900 08/29/20 10/05/20 History Budesonide [Pulmicort] 0.5 mg INHALATION RT-BID ml 09/07/20 10/05/20 Rx allopurinoL [Zyloprim] 200 mg PO DAILY tab 09/07/20 10/05/20 Rx Acetaminophen Tab [Tylenol] 650 mg PO TID@0500,1300,2100 tab 09/14/20 10/05/20 Rx HYDROcodone/APAP 5-325MG [[place] 1 tab PO Q8H PRN #10 tab 09/14/20 10/05/20 Rx 5-325] Carbidopa-Levodopa ER 25-100Mg 1 tab PO BID@0700,1300 10/05/20 10/05/20 History [Sinemet CR 25-100 mg] Ipratropium-Albuterol Nebulize 3 ml INHALATION RT-QID@05,,,10/05/20 10/05/20 History [Duoneb 0.5 mg-3 mg/3 ml Soln] Magnesium Oxide [Mag-Ox] 400 mg PO TID@0700,1300,1900 10/05/20 10/05/20 History traMADol HCL 50 mg PO QID@05,,,10/05/20 10/05/20 History Baclofen [Lioresal] 10 mg PO DAILY PRN #0 tab 10/06/20 10/05/20 Rx Allergies Allergy/AdvReac Type Severity Reaction Status Date / Time amoxicillin [From Augmentin] Allergy Unknown Verified 10/05/20 15:41 clavulanic acid Allergy Unknown Verified 10/05/20 15:41 [From Augmentin] codeine Allergy Unknown Verified 10/05/20 15:41 Physical Exam Vitals: Vital Signs Temp Pulse Resp BP Pulse Ox 10/06/20 07:56 70 10/06/20 07:45 77 10/06/20 07:21 98.0 F 69 18 132/65 100 10/06/20 05:26 71 16 112/80 99 10/06/20 04:00 70 18 122/60 99 10/06/20 02:31 71 18 126/90 100 10/05/20 22:30 82 18 142/60 98 10/05/20 22:28 71 10/05/20 22:17 71 10/05/20 19:00 71 18 122/71 97 10/05/20 17:23 65 18 115/59 97 10/05/20 15:01 98.1 F 71 16 146/74 99 Intake and Output 10/05/20 10/06/20 10/06/20 22:59 06:59 14:59 Intake Total 76.856 Balance 76.856 Intake: Intake, IV Titration 76.856 Amount Heparin Sod,Pork in 0.45% 76.856 NaCl 25,000 unit In 0.45 % NaCl 1 250ml.bag @ 11. 73 UNITS/KG/HR 10.003 mls /hr IV .Q24H [facility] Rx#: [id number] Other: Weight 85.275 kg Results 10/05/20 15:56 10/06/20 04:25 Cardiac Enzymes 10/05/20 10/05/20 10/05/20 Range/Units 15:56 15:56 19:09 AST 39 H (14-36) U/L Troponin I <0.012 <0.012 (0.000-0.034) ng/mL 10/05/20 Range/Units 22:20 AST (14-36) U/L Troponin I <0.012 (0.000-0.034) ng/mL Coagulation 10/05/20 10/06/20 10/06/20 Range/Units 15:56 00:47 08:21 PT 10.7 (9.0-12.0) sec APTT 22.6 38.2 H 64.8 H (22.0-30.0) sec CBC 10/05/20 Range/Units 15:56 WBC 8.6 (3.8-10.6) k/uL RBC 2.84 L (3.80-5.40) m/uL Hgb 9.1 L (11.4-16.0) gm/dL Hct 28.0 L (34.0-46.0) % Plt Count 215 (150-450) k/uL Comprehensive Metabolic Panel 10/05/20 10/06/20 Range/Units 15:56 04:25 Sodium 140 139 (137-145) mmol/L Potassium 4.0 4.1 (3.5-5.1) mmol/L Chloride 102 103 (98-107) mmol/L Carbon Dioxide 29 30 (22-30) mmol/L BUN 29 H 26 H (7-17) mg/dL Creatinine 1.39 H 1.40 H (0.52-1.04) mg/dL Glucose 125 H 100 H (74-99) mg/dL Calcium 9.2 9.3 (8.4-10.2) mg/dL AST 39 H (14-36) U/L ALT 6 (4-34) U/L Alkaline Phosphatase 123 (38-126) U/L Total Protein 8.4 H (6.3-8.2) g/dL Albumin 3.9 (3.5-5.0) g/dL Current Medications Generic Name Dose Route Start Last Admin Trade Name Freq PRN Reason Stop Dose Admin Acetaminophen 650 mg 10/05/20 21:00 10/06/20 04:21 Acetaminophen Tab 325 Mg Tab PO 650 mg TID@0500,1300,2100 [facility] Administration Hydrocodone Bitart/Acetaminophen 1 each 10/05/20 17:49 10/06/20 01:03 Hydrocodone/Apap 5-325mg 1 Each Tab PO 1 each Q8H PRN Administration Pain Al Hydroxide/Mg Hydroxide 30 ml 10/05/20 17:49 Mag Hydrox/Al Hydrox/Simeth 30 Ml Cup PO Q6H PRN Indigestion Albuterol/Ipratropium 3 ml 10/05/20 23:00 10/06/20 07:45 Ipratropium-Albuterol 3 Ml Neb INHALATION 3 ml RT-QID@05,11,17,23 [facility] Administration Allopurinol 200 mg 10/06/20 09:00 10/06/20 08:58 Allopurinol 100 Mg Tab PO 200 mg DAILY [facility] Administration Aspirin 81 mg 10/05/20 20:00 10/05/20 19:52 Aspirin 81 Mg PO 81 mg HS@2000 [facility] Administration Baclofen 10 mg 10/05/20 17:49 10/06/20 09:05 Baclofen 10 Mg Tab PO 10 mg DAILY PRN Administration Muscle Spasm Benzocaine 1 gm 10/05/20 17:49 Benzocaine 20 % Gel 15 Gm Tube MM TID PRN MOUTH PAIN Benzocaine/Menthol 1 each 10/05/20 17:49 Benzocaine/Menthol Lozeng 1 Each Lozenge MUCOUS MEM Q4H PRN COUGH/CONGESTION Budesonide 0.5 mg 05/18/21 20:00 10/06/20 07:47 Budesonide 0.5 Mg/2 Ml Nebu INHALATION Not Given RT-BID [facility] Carbidopa/Levodopa 1 each 10/06/20 07:00 10/06/20 08:55 Carbidopa-Levodopa Er 25-100mg 1 Each Tablet.Er PO 1 each BID@0700,1300 [facility] Administration Heparin Sodium (Porcine) 5,000 unit 10/05/20 21:00 10/06/20 00:26 Heparin Sodium,Porcine/Pf 5,000 Unit/0.5 Ml Syringe SQ Not Given Q12HR [facility] Heparin Sodium (Porcine) 0 unit 10/06/20 02:10 10/06/20 02:24 Heparin Sodium 1,000 Un/Ml (10ml Vl) IVP 2,131.75 unit Q6HR PRN Administration Per Protocol Protocol Hydromorphone HCl 0.5 mg 10/05/20 18:31 10/05/20 18:37 Hydromorphone 0.5 Mg/0.5 Ml Syringe IVP 0.5 mg Q6HR PRN Administration Pain Sodium Chloride 1,000 mls @ 75 mls/hr 10/05/20 18:00 10/05/20 19:53 Saline 0.9% IV 20 mls/hr .[id number] [facility] Administration Lactulose 20 gm 10/05/20 17:49 Lactulose 20 Gm/30 Ml Cup PO BID PRN Constipation Levetiracetam 500 mg 10/05/20 19:00 10/06/20 08:54 Levetiracetam 500 Mg Tab PO 500 mg BID@0700,1900 [facility] Administration Levothyroxine Sodium 50 mcg 10/06/20 05:00 10/06/20 04:21 Levothyroxine 50 Mcg Tab PO 50 mcg DAILY@0500 [facility] Administration Magnesium Oxide 400 mg 10/05/20 19:00 10/06/20 08:54 Magnesium Oxide 400 Mg Tab PO 400 mg TID@0700,1300,1900 [facility] Administration Melatonin 3 mg 10/05/20 17:49 Melatonin 3 Mg Tablet PO HS@2000 PRN Insomnia Metoprolol Tartrate 12.5 mg 10/05/20 19:00 10/06/20 08:54 Metoprolol Tartrate 12.5 Mg Tab PO 12.5 mg BID@0700,1900 [facility] Administration Nitroglycerin 0.4 mg 10/05/20 17:49 Nitroglycerin Sl Tabs 0.4 Mg Tab SUBLINGUAL Q5M PRN Chest Pain Pantoprazole Sodium 40 mg 10/06/20 09:00 10/06/20 08:58 Pantoprazole 40 Mg Tablet PO 40 mg DAILY [facility] Administration Primidone 25 mg 10/05/20 20:00 10/05/20 22:53 Primidone 25 Mg Tab PO 25 mg HS@1999 [facility] Administration Ropinirole HCl 0.5 mg 10/05/20 19:00 10/06/20 08:54 Ropinirole Hcl 0.25 Mg Tab PO 0.5 mg TID@0700,1300,1900 [facility] Administration Sertraline HCl 100 mg 10/06/20 09:00 10/06/20 08:56 Sertraline 100 Mg Tab PO 100 mg DAILY [facility] Administration Simethicone 80 mg 10/06/20 07:00 10/06/20 08:55 Simethicone 80 Mg Chewable PO 80 mg AC-TID@, [facility] Administration Tramadol HCl 50 mg 10/05/20 23:00 10/06/20 04:21 Tramadol 50 Mg Tab PO Not Given QID@,,, [facility] Intake and Output 10/05/20 10/06/20 10/06/20 22:59 06:59 14:59 Intake Total 76.856 Balance 76.856 Intake: Intake, IV Titration 76.856 Amount Heparin Sod,Pork in 0.45% 76.856 NaCl 25,000 unit In 0.45 % NaCl 1 250ml.bag @ 11. 73 UNITS/KG/HR 10.003 mls /hr IV .Q24H [facility] Rx#: [id number] Other: Weight 85.275 kg 10/05/20 15:56 10/06/20 04:25
[2020-10-06 14:27] VITALS: BP 129/78; RESP 17; TEMP 98.9
--- NOTE | 2020-10-06 14:27 | P.DS ---
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 Before her chest pressure like sensation patient was up ambulating with a walker and just before that patient did eat and usually this chest pressure usually resolves with the Mylanta and patient thought it may be gas pain. Patient apparently became unresponsive and brought to ER. Patient may have had a syncopal episode. Patient appears to be dehydrated with dry patient was treated for heart failure during her last hospitalization patient is being treated for congestive heart failure chronic d iastolic dysfunction. Patient had a normal ejection fraction patient is an 40 twice a day 4 Lasix. Patient creatinine did go up to 1.3 baseline around 0.8. X-ray today showed possible pulmonary hypertension. Patient had a BNP of around 1:30. EKG showed A. fib patient appears to be in chronic A. fib but rate controlled patient is not on any anti-coagulation because of her probably fall risk. First set of troponin is negative. 10/06/2020 Ruled out acute Syndromes Troponins Were Negative. Patient Was Evaluated by Cardiology. Cleared for Discharge. Patient Doesn't Have Any Evidence of CHF Patient Had Acute Renal Failure Secondary to Diuretics Which Will Be Held at This Time If Needed Can Be Restarted As an Outpatient Patient the Creatinine Did Not Improve Significantly In Spite Of IV Fluids and Expecting to This to Improve with Holding off on the Lasix. Patient Will Be Discharged Today to Follow up with the Primary Care Physician at the Subacute Rehabitation. PHYSICAL EXAMINATION: GENERAL: The patient is alert and oriented x3, not in any acute distress. Well developed, well nourished. HEENT: Pupils are round and equally reacting to light. EOMI. No scleral icterus. No conjunctival pallor. Normocephalic, atraumatic. No pharyngeal erythema. No thyromegaly. CARDIOVASCULAR: S1 and S2 present. No murmurs, rubs, or gallops. PULMONARY: Chest is clear to auscultation, no wheezing or crackles. ABDOMEN: Soft, nontender, nondistended, normoactive bowel sounds. No palpable organomegaly. MUSCULOSKELETAL: No joint swelling or deformity. EXTREMITIES: No cyanosis, clubbing, or pedal edema. NEUROLOGICAL: Gross neurological examination did not reveal any focal deficits. SKIN: No rashes. Assessment and Plan Plan: 1 chest pain pressure-like sensation:ruled out acute coronary syndromes, cardiology evaluated the patient cleared for discharge -Episode of unresponsiveness patient may have had a syncopal episode which is again secondary to dehydration seconded to Lasix -History of congestive heart failure chronic diastolic dysfunction patient is not in acute exacerbation patient most probably will not require any Lasix, can be reassessed and if needed can be restarted back but as of now because of the acute renal failure I'm holding Lasix. -Mild non specific elevation of lipase no evidence of pancreatitis -Acute renal failure: Secondary to diuretics gastroesophageal reflux disease -seizure disorder -Hypothyroidism -Anxiety disorder. -Chronic atrial fibrillation presently not on anticoagulation patient is rate controlled will continue with her metoprolol leave the decision of anticoagulation to patient and cardiology -Generalized deconditioning for which patient is undergoing rehabilitation at sub acute rehabilitation. Patient Condition at Discharge: Fair Plan - Discharge Summary New Discharge Prescriptions: Continue Melatonin 3 mg PO HS@2000 Sertraline [Zoloft] 100 mg PO DAILY Aspirin 81 mg PO HS@2000 Levothyroxine Sodium [Synthroid] 50 mcg PO DAILY@0500 Lactulose 20 gm PO BID Primidone [Mysoline] 25 mg PO HS@2000 Mag Hydrox/Aluminum Hyd/Simeth [Mylanta Maximum Strength Liq] 30 ml PO Q6H PRN PRN Reason: Indigestion rOPINIRole HCL [Requip] 0.5 mg PO TID@0700,1300,1900 Metoprolol Tartrate [Lopressor] 12.5 mg PO BID@0700,1900 Pantoprazole Sodium [Protonix] 40 mg PO DAILY Simethicone Chew [Mylicon Chew] 80 mg PO AC-TID@07,12,17 Benzocaine/Menthol [Cepacol Sore Throat Lozenge] 1 lozenge MM Q4H PRN PRN Reason: COUGH/CONGESTION allopurinoL [Zyloprim] 200 mg PO DAILY tab Magnesium Oxide [Mag-Ox] 400 mg PO TID@0700,1300,1900 traMADol HCL 50 mg PO QID@,,, Benzocaine [Anbesol] 1 applic MUCOUS MEM TID PRN PRN Reason: MOUTH PAIN levETIRAcetam [Keppra] 500 mg PO BID@0700,1900 Budesonide [Pulmicort] 0.5 mg INHALATION RT-BID ml Acetaminophen Tab [Tylenol] 650 mg PO TID@0500,1300,2100 tab HYDROcodone/APAP 5-325MG [[place] 5-325] 1 tab PO Q8H PRN #10 tab PRN Reason: Pain Carbidopa-Levodopa ER 25-100Mg [Sinemet CR 25-100 mg] 1 tab PO BID@0700,1300 Ipratropium-Albuterol Nebulize [Duoneb 0.5 mg-3 mg/3 ml Soln] 3 ml INHALATION RT-QID@,,, Changed Baclofen [Lioresal] 10 mg PO DAILY PRN #0 tab PRN Reason: Mild Spasms Discontinued ALPRAZolam [Xanax] 0.25 mg PO BID@0700,1900 amLODIPine [Norvasc] 5 mg PO DAILY@0700 Furosemide [Lasix] 40 mg PO BID@0700,1600 Discharge Medication List Aspirin 81 mg PO HS@199909/18/18 [History] Levothyroxine Sodium [Synthroid] 50 mcg PO DAILY@0500 09/18/18 [History] Melatonin 3 mg PO HS@199909/18/18 [History] Sertraline [Zoloft] 100 mg PO DAILY 09/18/18 [History] Lactulose 20 gm PO BID 06/08/19 [History] Primidone [Mysoline] 25 mg PO HS@199906/08/19 [History] Mag Hydrox/Aluminum Hyd/Simeth [Mylanta Maximum Strength Liq] 30 ml PO Q6H PRN 01/12/20 [History] Metoprolol Tartrate [Lopressor] 12.5 mg PO BID@0700,1900 01/12/20 [History] rOPINIRole HCL [Requip] 0.5 mg PO TID@0700,1300,1900 01/12/20 [History] Benzocaine [Anbesol] 1 applic MUCOUS MEM TID PRN 08/29/20 [History] Benzocaine/Menthol [Cepacol Sore Throat Lozenge] 1 lozenge MM Q4H PRN 08/29/20 [History] Pantoprazole Sodium [Protonix] 40 mg PO DAILY 08/29/20 [History] Simethicone Chew [Mylicon Chew] 80 mg PO AC-TID@07,12,17 08/29/20 [History] levETIRAcetam [Keppra] 500 mg PO BID@0700,1900 08/29/20 [History] Budesonide [Pulmicort] 0.5 mg INHALATION RT-BID ml 09/07/20 [Rx] allopurinoL [Zyloprim] 200 mg PO DAILY tab 09/07/20 [Rx] Acetaminophen Tab [Tylenol] 650 mg PO TID@0500,1300,2100 tab 09/14/20 [Rx] HYDROcodone/APAP 5-325MG [[place] 5-325] 1 tab PO Q8H PRN #10 tab 09/14/20 [Rx] Carbidopa-Levodopa ER 25-100Mg [Sinemet CR 25-100 mg] 1 tab PO BID@0700,1300 10/05/20 [History] Ipratropium-Albuterol Nebulize [Duoneb 0.5 mg-3 mg/3 ml Soln] 3 ml INHALATION RT-QID@,,,10/05/20 [History] Magnesium Oxide [Mag-Ox] 400 mg PO TID@0700,1300,1900 10/05/20 [History] traMADol HCL 50 mg PO QID@,,,10/05/20 [History] Baclofen [Lioresal] 10 mg PO DAILY PRN #0 tab 10/06/20 [Rx] Follow up Appointment(s)/Referral(s): Miguel Newton MD [Primary Care Provider] - 3 Days Donn Anderson DO [STAFF PHYSICIAN] - 2 Weeks Discharge Disposition: TRANSFER TO SNF/ECF
[2020-10-06 15:14] LABS: Chol/HDL Ratio 2.57; LDL Cholesterol,Calculated 60.2 mg/dL (0.0-131.0); VLDL Calculation 19.8 mg/dL (5.00-40.00)
== END 2020-10-06 14:25 ==
LOC: EC 14:58 → INTOOBSV 17:49 → 6NMEDSUR 17:49 → 1SOBS 19:40
PROVIDERS: ADMIT Internal Medicine; ATTEND Internal Medicine
DX: R07.2 Precordial pain (principal); R55 Syncope and collapse; E86.0 Dehydration; I48.20 Chronic atrial fibrillation, unspecified; N17.9 Acute kidney failure, unspecified; T50.2X5A Adverse effect of carbonic-anhydrase inhibitors, benzothiadiazides and other diuretics, initial encounter; I11.0 Hypertensive heart disease with heart failure; I50.32 Chronic diastolic (congestive) heart failure; R00.0 Tachycardia, unspecified; I27.20 Pulmonary hypertension, unspecified; E03.9 Hypothyroidism, unspecified; I07.1 Rheumatic tricuspid insufficiency; F41.9 Anxiety disorder, unspecified; K21.9 Gastro-esophageal reflux disease without esophagitis; M19.90 Unspecified osteoarthritis, unspecified site; D64.9 Anemia, unspecified; G81.90 Hemiplegia, unspecified affecting unspecified side; F03.90 Unspecified dementia, unspecified severity, without behavioral disturbance, psychotic disturbance, mood disturbance, and anxiety; G40.909 Epilepsy, unspecified, not intractable, without status epilepticus; I25.2 Old myocardial infarction; G25.81 Restless legs syndrome; Z20.822 Contact with and (suspected) exposure to COVID-19; Z79.82 Long term (current) use of aspirin; Z79.899 Other long term (current) drug therapy; Z79.890 Hormone replacement therapy; Z88.5 Allergy status to narcotic agent; Z88.0 Allergy status to penicillin; Z88.1 Allergy status to other antibiotic agents; Z90.49 Acquired absence of other specified parts of digestive tract; Z96.0 Presence of urogenital implants; Z16.12 Extended spectrum beta lactamase (ESBL) resistance; Z86.14 Personal history of Methicillin resistant Staphylococcus aureus infection; Z86.73 Personal history of transient ischemic attack (TIA), and cerebral infarction without residual deficits; Z83.6 Family history of other diseases of the respiratory system; Z80.1 Family history of malignant neoplasm of trachea, bronchus and lung; Z82.5 Family history of asthma and other chronic lower respiratory diseases
CPT/HCPCS: 93005 ×2; 96365; 96366; 96367; 96368; 96375; 96376; 99285; 36415; 94640 ×3; 83880; 80061; 80053; 80048; 82550; 83690; 83735; 84484; 85025; 85610; 85730 ×2; 87635; 71046; G0378 ×2; J1644 ×3; J3475; J1170 ×2

== ENCOUNTER 2020-10-13 11:25 | Inpatient (IN) | payer MEDICARE, BC, OTHER ==
[2020-10-13] MEDS ORDERED: diphenhydrAMINE 25 MG CAP PO STA (13:14)
[2020-10-13] MEDS ORDERED: SODIUM CHLORIDE 0.9% 500 ML 500 ML IV STA (13:14)
[2020-10-13 13:54] LABS: Basophils # (A) 0.1 k/uL (0-0.2); Basophils % (A) 0 %; Eosinophils # (A) 0.5 k/uL (0-0.7); Eosinophils % (A) 3 %; HCT 26.4 % (34.0-46.0); HGB 8.4 gm/dL (11.4-16.0); Hypochromasia Slight; Lymphocytes % (A) 11 %; MCH 31.7 pg (25.0-35.0); MCHC 31.8 g/dL (31.0-37.0); MCV 99.8 fL (80.0-100.0); Macrocytosis Slight; Mean Platelet Volume 9.8; Monocytes # (A) 1.3 k/uL (0-1.0); Monocytes % (A) 7 %; Neutrophils # (A) 14.4 k/uL (1.3-7.7); Neutrophils % (A) 77 %; Platelet Count 231 k/uL (150-450); RBC 2.65 m/uL (3.80-5.40); RDW 14.8 % (11.5-15.5); WBC 18.9 k/uL (3.8-10.6)
[2020-10-13] MEDS ORDERED: diphenhydrAMINE 50 MG/ML 1 ML VIAL IVP STA (13:58)
[2020-10-13 13:59] LABS: ALT <6 U/L (4-34); AST 17 U/L (14-36); African American GFR (CKD) 16 (>60 ml/min/1.73 sqM); Albumin 3.8 g/dL (3.5-5.0); Alkaline Phosphatase 129 U/L (38-126); Anion Gap 10 mmol/L; Appearance,Urine Cloudy (Clear); Bacteria,Urine Moderate /hpf; Bilirubin,Urine Negative (Negative); Blood Urea Nitrogen 42 mg/dL (7-17); Blood,Urine Large (Negative); Calcium 9.3 mg/dL (8.4-10.2); Carbon Dioxide 23 mmol/L (22-30); Chloride 103 mmol/L (98-107); Color,Urine Yellow; Glucose 106 mg/dL (74-99); Glucose,Urine (UA) Negative (Negative); Ketones,Urine Negative (Negative); Leukocyte Esterase,Urine Large (Negative); Magnesium 1.8 mg/dL (1.6-2.3); Mucus,Urine Rare /hpf; Nitrite,Urine Negative (Negative); Non-African American GFR(CKD) 14 (>60 ml/min/1.73 sqM); PH, Urine 7.5 (5.0-8.0); Potassium 4.5 mmol/L (3.5-5.1); Protein,Urine 1+ (Negative); RBC,Urine 4 /hpf (0-5); Sodium 136 mmol/L (137-145); Specific Gravity,Urine 1.011 (1.001-1.035); Total Bilirubin 0.5 mg/dL (0.2-1.3); Total Protein 8.5 g/dL (6.3-8.2); Urobilinogen,Urine <2.0 mg/dL (<2.0); WBC,Urine 14 /hpf (0-5)
--- NOTE | 2020-10-13 14:08 | ED ---
General Adult HPI - General Source: EMS, old records reviewed Mode of arrival: EMS <Joe Camejo - Last Filed: 10/13/20 15:24> <Fish Villa - Last Filed: 10/13/20 16:00> - General Chief complaint: Recheck/Abnormal Lab/Rx Stated complaint: altered mental status Time Seen by Provider: 10/13/20 11:50 - History of Present Illness Initial comments: 85-year-old female with a past medical history of heart failure, CVA, dementia, GERD, hypertension, Parkinson's, encephalopathy presents to the emergency room for increased confusion. [facility] reports that patient is more confused than she has been at baseline over the past several days. She has not been eating or drinking because her tremors have been worse. They report that she has a history of UTI and are concerned that perhaps this could be a cause of her symptoms. No fevers that they're aware of.Patient has no other complaints at this time including shortness of breath, chest pain, abdominal pain, nausea or vomiting, headache, or visual changes. (Joe Camejo) - Related Data Home Medications Medication Instructions Recorded Confirmed Aspirin 81 mg PO DAILY 09/18/18 10/13/20 Levothyroxine Sodium [Synthroid] 50 mcg PO DAILY 09/18/18 10/13/20 Melatonin 3 mg PO HS@199909/18/18 10/13/20 Sertraline [Zoloft] 100 mg PO DAILY@0700 09/18/18 10/13/20 Lactulose 20 gm PO BID 06/08/19 10/13/20 Metoprolol Tartrate [Lopressor] 12.5 mg PO BID@0700,1600 01/12/20 10/13/20 rOPINIRole HCL [Requip] 0.5 mg PO TID@0700,1300,1900 01/12/20 10/13/20 Pantoprazole Sodium [Protonix] 40 mg PO DAILY@0700 08/29/20 10/13/20 levETIRAcetam [Keppra] 500 mg PO BID@0700,1600 08/29/20 10/13/20 Ipratropium-Albuterol Nebulize 3 ml INHALATION RT-QID 10/05/20 10/13/20 [Duoneb 0.5 mg-3 mg/3 ml Soln] Magnesium Oxide [Mag-Ox] 400 mg PO TID@0700,1300,1900 10/05/20 10/13/20 traMADol HCL 50 mg PO Q6H 10/05/20 10/13/20 Acetaminophen Tab [Tylenol] 650 mg PO TID@0500,1300,1900 10/13/20 10/13/20 Baclofen [Lioresal] 10 mg PO TID PRN 10/13/20 10/13/20 Carbidopa/Levodopa [Sinemet 25-100 1 tab PO BID 10/13/20 10/13/20 mg Tablet] Cyanocobalamin [Vitamin B-12] 500 mcg PO DAILY 10/13/20 10/13/20 Folic Acid 0.4 mg PO DAILY 10/13/20 10/13/20 Primidone [Mysoline] 25 mg PO HS 10/13/20 10/13/20 allopurinoL [Zyloprim] 200 mg PO DAILY@0700 10/13/20 10/13/20 Previous Rx's Medication Instructions Recorded Budesonide [Pulmicort] 0.5 mg INHALATION RT-BID ml 09/07/20 HYDROcodone/APAP 5-325MG [[place] 1 tab PO Q8H PRN #10 tab 09/14/20 5-325] Allergies Allergy/AdvReac Type Severity Reaction Status Date / Time amoxicillin [From Augmentin] Allergy Unknown Verified 10/13/20 11:51 clavulanic acid Allergy Unknown Verified 10/13/20 11:51 [From Augmentin] codeine Allergy Unknown Verified 10/13/20 11:51 Review of Systems ROS Other: All systems not noted in ROS Statement are negative. <Joe Camejo - Last Filed: 10/13/20 15:24> ROS Other: All systems not noted in ROS Statement are negative. <Fish Villa - Last Filed: 10/13/20 16:00> ROS Statement: Those systems with pertinent positive or pertinent negative responses have been documented in the HPI. Past Medical History Past Medical History: Heart Failure, CVA/TIA, Dementia, GERD/Reflux, Hypertens ion, Memory Impairment, Osteoarthritis (OA), Pneumonia, Seizure Disorder, Thyroid Disorder Additional Past Medical History / Comment(s): restless leg syndrome, hemiplegia, hemiparesis, anemia, ddd, vascular dementia,renal and urtheral calcculi, essential tremors, metabolic enchelopathy, pleural effusion, parkinsons, oxygen at 3l History of Any Multi-Drug Resistant Organisms: ESBL, MRSA Date of last positivie culture/infection: 08/30/20 ESBL/ MRSA 2008 MDRO Source:: ESBL URINE MRSA STOOL Past Surgical History: Back Surgery, Cholecystectomy Additional Past Surgical History / Comment(s): ileostomy Past Anesthesia/Blood Transfusion Reactions: No Reported Reaction Past Psychological History: Anxiety Smoking Status: Never smoker Past Alcohol Use History: Unable to Obtain Past Drug Use History: Unable to Obtain - Past Family History Father Family Medical History: Cancer Additional Family Medical History / Comment(s): lung CA Mother Family Medical History: Cancer Sister(s) Additional Family Medical History / Comment(s): emphysema <Joe Camejo - Last Filed: 10/13/20 15:24> General Exam General appearance: alert, in no apparent distress Head exam: Present: atraumatic, normocephalic, normal inspection Eye exam: Present: normal appearance, PERRL, EOMI. Absent: scleral icterus, conjunctival injection, periorbital swelling ENT exam: Present: normal exam Neck exam: Present: normal inspection, full ROM Respiratory exam: Present: normal lung sounds bilaterally. Absent: respiratory distress, wheezes Cardiovascular Exam: Present: regular rate, normal rhythm, normal heart sounds GI/Abdominal exam: Present: soft, normal bowel sounds. Absent: distended, tenderness, guarding, rebound, rigid Neurological exam: Present: alert. Absent: oriented X3 (Oriented to person x 1) <Joe Camejo - Last Filed: 10/13/20 15:24> Course <Fish Villa - Last Filed: 10/13/20 16:00> Vital Signs 10/13/20 11:37 Temperature 97.6 F Pulse Rate 73 Respiratory 18 Rate Blood Pressure 113/60 O2 Sat by Pulse 98 Oximetry - Reevaluation(s) Reevaluation #1: 10/13/20 15:59 PA supervision: I did personally evaluate the case and did present with complaints of increased confusion and weakness. Patient does demonstrate evidence on exam with dehydration evidence of UTI. Patient does have leukocytosis. Patient will be admitted for IV fluids IV antibiotics. Patient was discussed with Dr. Dexter. (Fish Villa) EKG Findings - EKG Comments: EKG Findings:: Sinus rhythm, ventricular rate 79, WA interval 182, QTC 444 <Joe Caemjo - Last Filed: 10/13/20 15:24> Medical Decision Making - Lab Data Result diagrams: 10/13/20 13:10/13/20 13:26 <Joe Camejo - Last Filed: 10/13/20 15:24> - Lab Data Result diagrams: 10/13/20 13:10/13/20 13:26 <Fish Villa - Last Filed: 10/13/20 16:00> - Medical Decision Making Vitals are stable. Patient does have leukocytosis of 18.9. Patient also has acute kidney injury with a creatinine of 3 which is above patient's baseline. Chest x-ray reveals a right paratracheal density that is increased since prior exam for one week ago, likely due to differences in technique. Atelectasis versus pneumonia as well. Patient does not have any fevers or cough. Case discussed with Dr. Villa, we will admit for dehydration. I discussed this case with Dr. Dexter, would like to hold antibiotics for now, leukocytosis likely reactive to dehydration. Will be admitted for rehydration therapy. (Joe Camejo) - Lab Data Lab Results 10/13/20 10/13/20 10/13/20 Range/Units 13:26 13: 13:26 WBC 18.9 H (3.8-10.6) k/uL RBC 2.65 L (3.80-5.40) m/uL Hgb 8.4 L (11.4-16.0) gm/dL Hct 26.4 L (34.0-46.0) % MCV 99.8 (80.0-100.0) fL MCH 31.7 (25.0-35.0) pg MCHC 31.8 (31.0-37.0) g/dL RDW 14.8 (11.5-15.5) % Plt Count 231 (150-450) k/uL MPV 9.8 Neutrophils % 77 % Lymphocytes % 11 % Monocytes % 7 % Eosinophils % 3 % Basophils % 0 % Neutrophils # 14.4 H (1.3-7.7) k/uL Lymphocytes # 2.0 (1.0-4.8) k/uL Monocytes # 1.3 H (0-1.0) k/uL Eosinophils # 0.5 (0-0.7) k/uL Basophils # 0.1 (0-0.2) k/uL Hypochromasia Slight Macrocytosis Slight Sodium 136 L (137-145) mmol/L Potassium 4.5 (3.5-5.1) mmol/L Chloride 103 (98-107) mmol/L Carbon Dioxide 23 (22-30) mmol/L Anion Gap 10 mmol/L BUN 42 H (7-17) mg/dL Creatinine 2.96 H (0.52-1.04) mg/dL Est GFR (CKD-EPI)AfAm 16 (>60 ml/min/1.73 sqM) Est GFR (CKD-EPI)NonAf 14 (>60 ml/min/1.73 sqM) Glucose 106 H (74-99) mg/dL Calcium 9.3 (8.4-10.2) mg/dL Magnesium 1.8 (1.6-2.3) mg/dL Total Bilirubin 0.5 (0.2-1.3) mg/dL AST 17 (14-36) U/L ALT <6 (4-34) U/L Alkaline Phosphatase 129 H (38-126) U/L Total Protein 8.5 H (6.3-8.2) g/dL Albumin 3.8 (3.5-5.0) g/dL Urine Color Yellow Urine Appearance Cloudy H (Clear) Urine pH 7.5 (5.0-8.0) Ur Specific [place] 1.011 (1.001-1.035) Urine Protein 1+ H (Negative) Urine Glucose (UA) Negative (Negative) Urine Ketones Negative (Negative) Urine Blood Large H (Negative) Urine Nitrite Negative (Negative) Urine Bilirubin Negative (Negative) Urine Urobilinogen <2.0 (<2.0) mg/dL Ur Leukocyte Esterase Large H (Negative) Urine RBC 4 (0-5) /hpf Urine WBC 14 H (0-5) /hpf Urine Bacteria Moderate H (None) /hpf Urine Mucus Rare H (None) /hpf Disposition Is patient prescribed a controlled substance at d/c from ED?: No Time of Disposition: 15:24 <Joe Camejo P - Last Filed: 10/13/20 15:24> <Fish Villa - Last Filed: 10/13/20 16:00> Clinical Impression: DEEPAK (acute kidney injury), Dehydration, Leukocytosis, Anemia Disposition: ADMITTED IP TO THIS HOSP Referrals: Miguel Newton MD [Primary Care Provider] - 1-2 days
--- NOTE | 2020-10-13 14:51 | XR ---
EXAMINATION TYPE: XR chest 2V DATE OF EXAM: 10/13/2020 COMPARISON: 10/05/2020 HISTORY: Leukocytosis, altered mental status TECHNIQUE: Frontal and lateral views of the chest are obtained. FINDINGS: Heart size is enlarged. Low lung volumes. Bilateral prominence of the pulmonary vasculatur e may be due to pulmonary arterial hypertension. This was seen on a recent 10/05/2020 study but appea rs increased. No pleural effusion or pneumothorax. Prominent right paratracheal density appears more prominent than prior exam. This may be due to differences in technique. There are increasing streaky bibasilar airspace opacities which may represent atelectasis or developing pneumonia best seen on the lateral view. Old wedge compression fracture deformity is again visualized. Bony demineralization. IMPRESSION: 1. Low lung volumes. Prominence of the central pulmonary vasculature may represent pulmonary arterial hypertension. This appears increased since prior exam. A CT of the chest may be helpful for further evaluation. 2. Right paratracheal density has increased since prior exam, which may be due to differences in tech nique. 3. Streaky bibasilar airspace opacities best seen on lateral view may represent atelectasis or develo ping pneumonia.
[2020-10-13] MEDS ORDERED: NALOXONE 0.4 MG/ML 1 ML VIAL IV PRN (15:25)
[2020-10-13] MEDS ORDERED: BACLOFEN 10 MG TAB PO PRN (15:28)
--- NOTE | 2020-10-13 16:47 | P.HPIM ---
History of Present Illness 85-year-old female even because of increasing confusion and increasing encephalopathy patient has not been eating or drinking well. Patient does have parkinsonian dementia. Patient usually is alert and oriented 3 as per the daughter. Patient appeared to be dehydrated patient is in acute renal failure because of which patient is being admitted patient urine is real abnormal but not convincing for urinary tract infection although urine cultures are being obtained patient had a chest x-ray which is showing some bilateral streaky opacities most probably atelectasis but pneumonia cannot be ruled out because of leukocytosis patient was started on Rocephin. Patient is unable to tell me if she has dysuria patient is presently alert oriented 1. Patient is able to tell her name but doesn't know where she is. Patient does have history of Parkinson's was unable to see her neurologist for long time and was having increasing tremor. Review of Systems Rest of the review of systems is negative or unable to obtain due to her clinical condition. Past Medical History Past Medical History: Heart Failure, CVA/TIA, Dementia, GERD/Reflux, Hypertension, Memory Impairment, Osteoarthritis (OA), Pneumonia, Seizure Disorder, Thyroid Disorder Additional Past Medical History / Comment(s): restless leg syndrome, hemiplegia, hemiparesis, anemia, ddd, vascular dementia,renal and urtheral calcculi, essential tremors, metabolic enchelopathy, pleural effusion, parkinsons, oxygen at 3l History of Any Multi-Drug Resistant Organisms: ESBL, MRSA Date of last positivie culture/infection: 08/30/20 ESBL/ MRSA 2008 MDRO Source:: ESBL URINE MRSA STOOL Past Surgical History: Back Surgery, Cholecystectomy Additional Past Surgical History / Comment(s): ileostomy Past Anesthesia/Blood Transfusion Reactions: No Reported Reaction Past Psychological History: Anxiety Smoking Status: Never smoker Past Alcohol Use History: Unable to Obtain Past Drug Use History: Unable to Obtain - Past Family History Father Family Medical History: Cancer Additional Family Medical History / Comment(s): lung CA Mother Family Medical History: Cancer Sister(s) Additional Family Medical History / Comment(s): emphysema Medications and Allergies Home Medications Medication Instructions Recorded Confirmed Type Aspirin 81 mg PO DAILY 09/18/18 10/13/20 History Levothyroxine Sodium [Synthroid] 50 mcg PO DAILY 09/18/18 10/13/20 History Melatonin 3 mg PO @199909/18/18 10/13/20 History Sertraline [Zoloft] 100 mg PO DAILY@0700 09/18/18 10/13/20 History Lactulose 20 gm PO BID 06/08/19 10/13/20 History Metoprolol Tartrate [Lopressor] 12.5 mg PO BID@0700,1600 01/12/20 10/13/20 History rOPINIRole HCL [Requip] 0.5 mg PO TID@0700,1300,1900 01/12/20 10/13/20 History Pantoprazole Sodium [Protonix] 40 mg PO DAILY@0700 08/29/20 10/13/20 History levETIRAcetam [Keppra] 500 mg PO BID@0700,1600 08/29/20 10/13/20 History Budesonide [Pulmicort] 0.5 mg INHALATION RT-BID ml 09/07/20 10/13/20 Rx HYDROcodone/APAP 5-325MG [[place] 1 tab PO Q8H PRN #10 tab 09/14/20 10/13/20 Rx 5-325] Ipratropium-Albuterol Nebulize 3 ml INHALATION RT-QID 10/05/20 10/13/20 History [Duoneb 0.5 mg-3 mg/3 ml Soln] Magnesium Oxide [Mag-Ox] 400 mg PO TID@0700,1300,1900 10/05/20 10/13/20 History traMADol HCL 50 mg PO Q6H 10/05/20 10/13/20 History Acetaminophen Tab [Tylenol] 650 mg PO TID@0500,1300,1900 10/13/20 10/13/20 History Baclofen [Lioresal] 10 mg PO TID PRN 10/13/20 10/13/20 History Carbidopa/Levodopa [Sinemet 25-100 1 tab PO BID 10/13/20 10/13/20 History mg Tablet] Cyanocobalamin [Vitamin B-12] 500 mcg PO DAILY 10/13/20 10/13/20 History Folic Acid 0.4 mg PO DAILY 10/13/20 10/13/20 History Primidone [Mysoline] 25 mg PO HS 10/13/20 10/13/20 History allopurinoL [Zyloprim] 200 mg PO DAILY@0700 10/13/20 10/13/20 History Allergies Allergy/AdvReac Type Severity Reaction Status Date / Time amoxicillin [From Augmentin] Allergy Unknown Verified 10/13/20 11:51 clavulanic acid Allergy Unknown Verified 10/13/20 11:51 [From Augmentin] codeine Allergy Unknown Verified 10/13/20 11:51 Physical Exam Vitals: Vital Signs Temp Pulse Resp BP Pulse Ox 10/13/20 11:37 97.6 F 73 18 113/60 98 Intake and Output 10/13/20 10/13/20 10/13/20 06:59 14:59 22:59 Other: Weight 85.3 kg PHYSICAL EXAMINATION: GENERAL: The patient is alert and oriented x1, not in any acute distress. Well developed, well nourished. Does have tremor HEENT: Pupils are round and equally reacting to light. EOMI. No scleral icterus. No conjunctival pallor. Normocephalic, atraumatic. No pharyngeal erythema. No thyromegaly. CARDIOVASCULAR: S1 and S2 present. No murmurs, rubs, or gallops. PULMONARY: Chest is clear to auscultation, no wheezing or crackles. ABDOMEN: Soft, nontender, nondistended, normoactive bowel sounds. No palpable organomegaly. MUSCULOSKELETAL: No joint swelling or deformity. EXTREMITIES: No cyanosis, clubbing, or pedal edema. NEUROLOGICAL: Parkinsonian tremor and significant generalized weakness. SKIN: No rashes. Results CBC & Chem 7: 10/13/20 13:26 10/13/20 13:26 Labs: Abnormal Lab Results - Last 24 Hours (Table) 10/13/20 10/13/20 10/13/20 Range/Units 13:26 13:26 13:26 WBC 18.9 H (3.8-10.6) k/uL RBC 2.65 L (3.80-5.40) m/uL Hgb 8.4 L (11.4-16.0) gm/dL Hct 26.4 L (34.0-46.0) % Neutrophils # 14.4 H (1.3-7.7) k/uL Monocytes # 1.3 H (0-1.0) k/uL Sodium 136 L (137-145) mmol/L BUN 42 H (7-17) mg/dL Creatinine 2.96 H (0.52-1.04) mg/dL Glucose 106 H (74-99) mg/dL Alkaline Phosphatase 129 H (38-126) U/L Total Protein 8.5 H (6.3-8.2) g/dL Urine Appearance Cloudy H (Clear) Urine Protein 1+ H (Negative) Urine Blood Large H (Negative) Ur Leukocyte Esterase Large H (Negative) Urine WBC 14 H (0-5) /hpf Urine Bacteria Moderate H (None) /hpf Urine Mucus Rare H (None) /hpf Assessment and Plan Plan: -Acute metabolic encephalopathy from acute renal failure which is again secondary to dehydration patient will be started on IV fluids will reassess her tomorrow.I cannot completely rule out the mild left-sided pneumonia because of which I'll last on Rocephin. Possibly a few urinary tract infection is low. -Worsening parkinsonian symptoms that his tremor and generalized weakness: Patient is was unable to see a neurologist for a while will consult neurology here for titration of her parkinsonian medication usually this is outpatient follow-up. -Mild hypovolemic hyponatremia -Leukocytosis due to assessment #1 -Possible worsening parkinsonian dementia. Patient was started on Seroquel as- needed basis for agitation episodes if any. -Generalized deconditioning and chronic weakness: -Gastroesophageal reflux disease next and have an hypertension -Seizure disorder -hyperthyroidism a -DVT prophylaxis with the subcutaneous heparin
[2020-10-13] MEDS: levETIRAcetam 500 MG TAB PO SCH (19:26)
[2020-10-13] MEDS: SODIUM CHLORIDE 0.9% 1,000 ML IV SCH (19:26)
[2020-10-13] MEDS: METOPROLOL TARTRATE 12.5 MG TAB PO SCH (19:26)
[2020-10-13] MEDS: ACETAMINOPHEN TAB 325 MG TAB PO SCH (19:27)
[2020-10-13] MEDS: MAGNESIUM OXIDE 400 MG TAB PO SCH (19:28)
[2020-10-13] MEDS: MELATONIN 3 MG TABLET PO SCH (19:31)
[2020-10-13] MEDS: QUEtiapine 25 MG TAB PO PRN (19:41)
[2020-10-13] MEDS: BUDESONIDE 0.5 MG/2 ML NEBU INHALATION SCH (21:44)
[2020-10-13] MEDS: IPRATROPIUM-ALBUTEROL 3 ML NEB INHALATION SCH ×2 (21:44)
[2020-10-13] MEDS: CARBIDOPA-LEVODOPA 25-100 MG 1 EACH TAB PO SCH (22:55)
[2020-10-13] MEDS: PRIMIDONE 50 MG TAB PO SCH (22:56)
[2020-10-13] MEDS: LACTULOSE 20 GM/30 ML CUP PO SCH (22:56)
[2020-10-14] MEDS: HEPARIN SODIUM,PORCINE/PF 5,000 UNIT/0.5 ML SYRINGE SQ SCH ×4 (02:06→23:33)
[2020-10-14] MEDS: ACETAMINOPHEN TAB 325 MG TAB PO SCH ×3 (04:38→19:11)
[2020-10-14] MEDS: LEVOTHYROXINE 50 MCG TAB PO SCH (06:09)
[2020-10-14] MEDS: HYDROcodone/APAP 5-325MG 1 EACH TAB PO PRN ×2 (06:09→17:25)
[2020-10-14] MEDS: IPRATROPIUM-ALBUTEROL 3 ML NEB INHALATION SCH ×4 (07:21→20:33)
[2020-10-14] MEDS: BUDESONIDE 0.5 MG/2 ML NEBU INHALATION SCH ×2 (07:21→20:33)
[2020-10-14] MEDS: PANTOPRAZOLE 40 MG TABLET PO SCH (08:29)
[2020-10-14] MEDS: CYANOCOBALAMIN 500 MCG TAB PO SCH (08:29)
[2020-10-14] MEDS: ASPIRIN 81 MG PO SCH (08:29)
[2020-10-14] MEDS: allopurinoL 100 MG TAB PO SCH (08:29)
[2020-10-14] MEDS: MAGNESIUM OXIDE 400 MG TAB PO SCH ×3 (08:29→19:11)
[2020-10-14] MEDS: FOLIC ACID 1 MG TAB PO SCH (08:29)
[2020-10-14] MEDS: LACTULOSE 20 GM/30 ML CUP PO SCH ×2 (08:30→20:48)
[2020-10-14 09:51] LABS: HGB 7.2 g/dL (12.0-15.0); MCH 30.8 pg (27.0-32.0); MCHC 28.8 g/dL (32.0-37.0); MCV 106.8 fL (80.0-97.0); Platelet Count 225 X 10*3/uL (140-440); RBC 2.34 X 10*6/uL (4.10-5.20); RDW 14.4 % (11.5-14.5); WBC 13.87 X 10*3/uL (4.50-10.00)
[2020-10-14] MEDS: METOPROLOL TARTRATE 12.5 MG TAB PO SCH ×2 (10:06→14:58)
[2020-10-14] MEDS: levETIRAcetam 500 MG TAB PO SCH ×2 (10:07→14:58)
[2020-10-14] MEDS: SERTRALINE 100 MG TAB PO SCH (10:08)
[2020-10-14] MEDS: CARBIDOPA-LEVODOPA 25-100 MG 1 EACH TAB PO SCH ×3 (10:08→20:48)
[2020-10-14 10:41] VITALS: BMI 31.3
--- NOTE | 2020-10-14 10:46 | P.CNNES ---
History of Present Illness Consult date: 10/14/20 Requesting physician: Thiago Dexter Reason for Consult: Parkinson's disease History of Present Illness: This is a 85 year-old woman with history of Parkinson's disease, seizure, dementia, congestive heart failure, hypertension, restless leg syndrome who presented emergency department on 10/13/2020 with increased confusion. Some of the history is obtained from medical records. It seems that the patient has been the more confused over the past the several days and has not been eating or drinking and her tremors are worse. Seems the patient a sliding orientation is alert oriented 3 that is reported the by the daughter to the primary team. Upon seeing the patient he mentation has improved and she stated she follows-up with Dr. Garrett (Neurologist) and has not seem her neurologist in sometime because of COVID-19 pandemic. She does acknowlege that she was has history of Parkinson's disease and has tremor predominately of the right hand. Some of the patient's home medication includes baclofen 10 mg 1 tablet 3 times a day when necessary, aspirin 81 mg daily, Requip 0.5 mg 1 tablet 3 times a day, tramadol 50 mg every 6 hours, primidone 25 mg daily at bedtime, metoprolol 12.5 mg 1 tablet twice a day, Synthroid, folic acid, vitamin B12, Sinemet 50483 milligram 1 tablet twice a day, Protonix, melatonin 3 mg daily at bedtime, [place] every hours as needed. Upon reviewing the patient's medical record the patient was seen by Dr. Sung (Neuro-Hospitalist) and was seen on 01/15/2020 (progress noted) and he stated that patient also mental status likely related to toxic metabolic encephalopathy as well as the patient has acute urinary tract infection. He said the patient has senile dementia and Parkinson's disease with superimposed intention tremor likely from Depakote as well as that she has seizure disorder at. He recommended the patient continue Keppra 500 mg 1 tablet twice a day and to lower dose of Depakote until Depakote has been stopped at. It seems that the patient declined EEG during that visit. He recommended to avoid tramadol since it can lower seizure threshold. And the patient was to follow-up with Dr. Garrett in January 2020. He also recommended increasing the Sinemet from one tablet twice a day to 1 tablet 3 times a day. Some of the workup in the hospital consisted of: Initial vital signs: Blood pressure of 113/60, heart rate of 73, temperature of 97.6 Fahrenheit, respiratory of 18, pulse ox of 98% on 3 L of nasal cannula. Initial white blood cells 18.9 and it's predominantly neutrophilic which is elevated. Hemoglobin is 8.4 which is low and then the repeated is 7.2 which seems slower than baseline. His sodium is 136 which is mildly low. Creatinine is 2.96 which is elevated them baseline Glucose is 106 and AST of 17 and ALT is less than 6 Urinalysis it's cloudy, urine nitrite is negative, urine leukocyte esterase was large, urine white blood cell is 14, urine bacteria is moderate. Chest x-ray was reported as low lung volume. Prominence of the central pulmonary vascular culture may represent pulmonary arterial hypertension. This appears increased since the prior exam. A CT of the chest may be helpful for further evaluation. Right paratracheal density has increased since prior exam which may be due to difference in technique. And the and the report is mentioned that that patient may have atelectasis or developing pneumonia Review of Systems Review of system: The 12 point system was reviewed and apparent positive and negative per HPI. Past Medical History Past Medical History: Atrial Fibrillation, Heart Failure, CVA/TIA, Dementia, GERD/Reflux, Hypertension, Memory Impairment, Musculoskeletal Disorder, Neurologic Disorder, Osteoarthritis (OA), Pneumonia, Respiratory Disorder, Seizure Disorder, Thyroid Disorder Additional Past Medical History / Comment(s): Pt recently admitted to [facility] on 10/05/20 with loss of consciousness, acute renal failure and generalized deconditioning. Other Hx: O2 at 3L/NC ATC, R side pleural effusion/pneumonia, CVA wtih R sided weakness, parkinsons with increased tremors, metabolic encephalopathy, frequent UTIs, nephrolithiasis, pyelonephritis, hydronephrosis, anemia, gout, bowel blockage with ileostomy, last seizure many years ago, chronic low back pain/DDD, RLS, hypothyroid, sacral wound History of Any Multi-Drug Resistant Organisms: ESBL, MRSA Date of last positivie culture/infection: 08/30/20 ESBL/ MRSA 2008 MDRO Source:: ESBL URINE MRSA STOOL Past Surgical History: Back Surgery, Bowel Resection, Cholecystectomy Additional Past Surgical History / Comment(s): Lumbar back surgeries x4, bowel resection/ileostomy, colonoscopy, cysto/bilateral ureteral stents. Past Anesthesia/Blood Transfusion Reactions: No Reported Reaction Smoking Status: Never smoker - Past Family History Father Family Medical History: Cancer Additional Family Medical History / Comment(s): lung CA Mother Family Medical History: Cancer Additional Family Medical History / Comment(s): Ovarian cancer Sister(s) Additional Family Medical History / Comment(s): emphysema Medications and Allergies Home Medications Medication Instructions Recorded Confirmed Type Aspirin 81 mg PO DAILY 09/18/18 10/13/20 History Levothyroxine Sodium [Synthroid] 50 mcg PO DAILY 09/18/18 10/13/20 History Melatonin 3 mg PO HS@199909/18/18 10/13/20 History Sertraline [Zoloft] 100 mg PO DAILY@0700 09/18/18 10/13/20 History Lactulose 20 gm PO BID 06/08/19 10/13/20 History Metoprolol Tartrate [Lopressor] 12.5 mg PO BID@0700,1600 01/12/20 10/13/20 History rOPINIRole HCL [Requip] 0.5 mg PO TID@0700,1300,1900 01/12/20 10/13/20 History Pantoprazole Sodium [Protonix] 40 mg PO DAILY@0700 08/29/20 10/13/20 History levETIRAcetam [Keppra] 500 mg PO BID@0700,1600 08/29/20 10/13/20 History Budesonide [Pulmicort] 0.5 mg INHALATION RT-BID ml 09/07/20 10/13/20 Rx HYDROcodone/APAP 5-325MG [[place] 1 tab PO Q8H PRN #10 tab 09/14/20 10/13/20 Rx 5-325] Ipratropium-Albuterol Nebulize 3 ml INHALATION RT-QID 10/05/20 10/13/20 History [Duoneb 0.5 mg-3 mg/3 ml Soln] Magnesium Oxide [Mag-Ox] 400 mg PO TID@0700,1300,1900 10/05/20 10/13/20 History traMADol HCL 50 mg PO Q6H 10/05/20 10/13/20 History Acetaminophen Tab [Tylenol] 650 mg PO TID@0500,1300,1900 10/13/20 10/13/20 History Baclofen [Lioresal] 10 mg PO TID PRN 10/13/20 10/13/20 History Carbidopa/Levodopa [Sinemet 25-100 1 tab PO BID 10/13/20 10/13/20 History mg Tablet] Cyanocobalamin [Vitamin B-12] 500 mcg PO DAILY 10/13/20 10/13/20 History Folic Acid 0.4 mg PO DAILY 10/13/20 10/13/20 History Primidone [Mysoline] 25 mg PO HS 10/13/20 10/13/20 History allopurinoL [Zyloprim] 200 mg PO DAILY@0700 10/13/20 10/13/20 History Allergies Allergy/AdvReac Type Severity Reaction Status Date / Time amoxicillin [From Augmentin] Allergy Unknown Verified 10/13/20 11:51 clavulanic acid Allergy Unknown Verified 10/13/20 11:51 [From Augmentin] codeine Allergy Unknown Verified 10/13/20 11:51 Physical Examination - Vital Signs Vital Signs: Vital Signs Temp Pulse Pulse Resp BP BP BP 10/14/20 07:21 55 L 18 10/14/20 04:59 97.7 F 77 20 95/61 10/14/20 02:53 98.9 F 64 20 134/59 10/14/20 01:59 97.8 F 62 16 92/58 10/14/20 00:00 18 10/13/20 22:00 76 18 124/70 10/13/20 21:55 76 10/13/20 21:51 10/13/20 21:49 72 10/13/20 16:30 70 16 117/60 10/13/20 11:37 97.6 F 73 18 113/60 Pulse Ox 10/14/20 07:21 100 10/14/20 04:59 98 10/14/20 02:53 99 10/14/20 01:59 100 10/14/20 00:00 10/13/20 22:00 100 10/13/20 21:55 10/13/20 21:51 100 10/13/20 21:49 10/13/20 16:30 100 10/13/20 11:37 98 Intake and Output 10/13/20 10/14/20 10/14/20 22:59 06:59 14:59 Intake Total 200 Output Total 100 Balance 100 Intake: Oral 200 Output: Stool 100 Other: Voiding Method Diaper Incontinent # Voids 1 Weight 85.3 kg GENERAL: The patient is lying in bed and is not in acute distress. CHEST: The heart rate is regular rate rhythm. No murmurs to auscultation. No carotid bruit bilaterally. LUNG: Clear to auscultation bilaterally no wheezing noted throughout. Not labored breathing. ABDOMEN/GI: Bowel sounds present in all 4 quadrants. No tenderness to palpation throughout. NEUROLOGICAL: Higher mental function: The patient is awake, alert, oriented to self, place and time. Patient is able to identify objects such as pen and phone correctly. Patient is following commands. No aphasia and no neglect. Cranial nerves: The pupils are round, equal and reactive to light. Visual mcgarry are full to confrontation throughout. Extraocular movement is intact no nystagmus is noted. Facial sensation is normal to touch throughout. The facial strength is normal throughout. Hearing is moderately decreased bilaterally to hand rub. Tongue is midline and moved [id number] without any difficulty. No dysarthria is noted. Shoulder shrug is normal bilaterally. Motor: Gait is deferred. The strength is bilateral upper extremities are 5/5 while Right lower extremity is 5- proximally while distally is 4+ (hard to assess because of cooperation). Left lower extremity is 4 proximally and ankle seems 2/5 (according to patient this is chronic and has lower back pain). Normal tone and bulk. She has some resting tremor over the right hand but is more prominent upon raising/lifting the upper extremity and worse with end action movement (finger to nose). Cerebellum: Normal finger to nose bilaterally (has end action tremor with finger to nose over the right). Sensation: Sensation is normal to touch throughout. Reflexes (right/left): 2+ in upper while lowers are 1+ Plantars are downgoing bilaterally. Results Fa[place] virus are is undetected - Laboratory Findings CBC and BMP: 10/14/20 06:03 10/13/20 13:26 Abnormal Lab Findings: Abnormal Labs 10/13/20 10/13/20 10/13/20 13:26 13:26 13:26 WBC 18.9 H RBC 2.65 L Hgb 8.4 L Hct 26.4 L Neutrophils # 14.4 H Monocytes # 1.3 H Sodium 136 L BUN 42 H Creatinine 2.96 H Glucose 106 H Alkaline Phosphatase 129 H Total Protein 8.5 H Urine Appearance Cloudy H Urine Protein 1+ H Urine Blood Large H Ur Leukocyte Esterase Large H Urine WBC 14 H Urine Bacteria Moderate H Urine Mucus Rare H Assessment and Plan Assessment: Altered mental status likely due to multifactorial: Septic encephalopathy from my ureter tract infection also component of toxic-metabolic encephalopathy (Acute kidney isuffiency on CKI, acute on chronic anemia)--mentation improved Parkinson's disease Dementia possibly due multifactoria (Parkinson's and vascular) Seizure disorder that is reported on previous neurology note in our facility Acute on chronic kidney insufficiency Acute on chronic anemia Acute urinary tract infection Congestive heart failure Hypertension Restless leg syndrome Plan: I increased the Sinemet [place] 47492 milligrams 1 tablet twice a day to one t ablet at 3 times a day. Continue Keppra 500 mg 1 tablet twice a day for her history of seizures (as requesed by Dr. Sung's last note on 01/16/2020). Avoid Tramadol since can lower seizure threshold. I recommend TANVIR scan as outpatient for patient history of Parkinson's disease. Recommend EMG with [facility] as outpatient for possibly lumbosacral radiculopathy vs neuropathy on the left lower extremity. Will defer the rest of medical management to the primary team. Patient needs to follow-up with her neurologist (Dr. Garrett) as outpatient within 2 weeks for further care. The plan is discussed with the patient's nurse. Thank you for the consultation. Juanito Glover MD Neuro-Hospitalist Time with Patient: Greater than 30
[2020-10-14 11:45] LABS: African American GFR (CKD) 21.7 (60.0-200.0); Anion Gap 11.9 mmol/L (4.00-12.00); BUN/Creat Ratio 20.43 Ratio (12.00-20.00); Calcium 8.9 mg/dL (8.7-10.3); Carbon Dioxide 22.1 mmol/L (21.6-31.8); Non-African American GFR(CKD) 18.8 (60.0-200.0); Potassium 4.6 mmol/L (3.5-5.5)
--- NOTE | 2020-10-14 11:52 | CDI ---
Documentation Clarification Form Date: 10/14/2020 11:12:03 AM From: Isis Warren RN CCDS Admit Date: 10/13/2020 03:25:00 PM Patient Name: Sumaya Yanez Visit Number: [id number] Discharge Date: ATTENTION: The Clinical Documentation Specialists (CDI) and [facility] Coding Staff appreciate your assistance in clarifying documentation. Please respond to the clarification below the line at the bottom and electronically sign. The CDI & [facility] Coding staff will review the response and follow-up if needed. Please note: Queries are made part of the Legal Health Record. If you have any questions, please contact the author of this message via ITS. Dr. Thiago Dexter Altered mental status likely due to multifactorial: Septic encephalopathy from ureter tract infection also component of toxic-metabolic encephalopathy. Documented in Neurology consult 10/14. The patient presented with the following clinical indicators. Additional clarification regarding the etiology/cause of the clinical indicators is requested. History/Risk Factors: 85-year-old female presents to the ED for increasing confusion and increasing encephalopathy patient has not been eating or drinking well. Medical History: CVA, Dementia, HTN Seizure disorder and Parkinsons. H&P 10/13. Clinical Indicators: WBC 10/13: 18.9 UA 10/13: Leukocyte Esterase: Large; Wbc 14. Vitals signs 10/13: 113/60, HR 73, RR 17, SpO2 98% 3L nasal cannula Treatment: Antibiotics: 10/13 Ceftriaxone Sodium 2gm Q24HR IV Bolus: 10/13 0.9ns 500cc/bolus x1. In your professional opinion, please clarify if these findings signify one of the following conditions: [ ] Sepsis POA [ ] Sepsis ruled out [ ] Other, please specify [ ] Unable to determine SIRS Criteria: 2 or more of the following may indicate SIRS -Temperature < 96.8F (36C) or > 101.0F (38.3C) -Heart Rate > 90 bpm -Respiratory Rate > 20 breaths/min or PaCO2 < 32 mmHg -White Blood Cell Count > 12,000 or < 4,000 cells/mm3 or > 10% bands (Template Last Reviewed: June 2020) -Possible sepsis, present on admission secondary to a component of metabolic encephalopathy, possible left-sided pneumonia, and possible acute urinary tract infection . Documented in Medicine progress note 10/14. JUANITA
--- NOTE | 2020-10-14 12:04 | CDI ---
Documentation Clarification Form Date: 10/14/2020 11:53:48 AM From: Isis Warren RN CCDS Admit Date: 10/13/2020 03:25:00 PM Patient Name: Sumaya Yanez Visit Number: [id number] Discharge Date: ATTENTION: The Clinical Documentation Specialists (CDI) and [facility] Coding Staff appreciate your assistance in clarifying documentation. Please respond to the clarification below the line at the bottom and electronically sign. The CDI & [facility] Coding staff will review the response and follow-up if needed. Please note: Queries are made part of the Legal Health Record. If you have any questions, please contact the author of this message via ITS. Dr. Thiago Dexter Your patient has oxygen at 3L documented in the H&P 10/13. Based on this information and the findings below, is there an additional diagnosis that is clinically appropriate for this patient? History/Risk Factors: Home oxygen: 3L Clinical Indicators: Oxygen at 3L / NC ATC. Neurology consult 10/13. Vitals signs 10/13: 113/60, HR 73, RR 17, SpO2 98% 3L nasal cannula Lung/Breathing assessment: Chest is clear to auscultation, no wheezing or crackles. H&P 10/13. Treatment: Breathing tx: 10/13 Pulmicort 0.5mg Inhalation BID Oxygen: 3L oxygen Is there an additional diagnosis that is clinically appropriate for this patient? [ ] Chronic Respiratory Failure [ ] Other Diagnosis, please specify [ ] Unable to determine (Template Last Revised: July 2020) History of chronic respiratory failure and O2 dependent in the outpatient setting with 3 L via nasal cannula . Documented in Medicine progress note 10/14. MTDD
[2020-10-14] MEDS: SODIUM CHLORIDE 0.9% 1,000 ML IV SCH ×2 (12:41→17:27)
--- NOTE | 2020-10-14 13:19 | P.PN ---
Subjective Progress Note Date: 10/14/20 85-year-old female even because of increasing confusion and increasing encephalopathy patient has not been eating or drinking well. Patient does have parkinsonian dementia. Patient usually is alert and oriented 3 as per the daughter. Patient appeared to be dehydrated patient is in acute renal failure because of which patient is being admitted patient urine is real abnormal but not convincing for urinary tract infection although urine cultures are being obtained patient had a chest x-ray which is showing some bilateral streaky opacities most probably atelectasis but pneumonia cannot be ruled out because of leukocytosis patient was started on Rocephin. Patient is unable to tell me if she has dysuria patient is presently alert oriented 1. Patient is able to tell her name but doesn't know where she is. Patient does have history of Parkinson's was unable to see her neurologist for long time and was having increasing tremor. 10/14/2020 Patient is seen and evaluated this morning in follow-up and is much more awake and alert today responding appropriately to questions and commands. Patient is asking when she can return to [facility]. Patient was seen and evaluated by neurology for her tremors and recommending to continue to follow-up with her neurologist Dr. Garrett outpatient with minor changes in medications. Patient continues on IV ceftriaxone with possible UTI and cultures have not resulted at this time. Patient continues on 3 L of nasal cannula which is her baseline. White blood count trending down and is 13.87 with a hemoglobin of 7.2 with a known history of anemia. Sodium is 137 with a potassium of 4.6 and creatinine improved at 2.3 and will continue with gentle IV fluids. Review of systems: Constitutional: No reports of fatigue, fever, or chills Cardiovascular: No reports of chest pain or palpitations Respiratory: No reports of shortness of breath or cough GI: No reports of nausea, vomiting, or diarrhea : No reports of dysuria or retention Neurovascular: Reports generalized weakness All medications have been reviewed Objective - Vital Signs Vital signs: Vital Signs Temp 97.7 F 10/14/20 04:59 Pulse 55 L 10/14/20 07:21 Resp 18 10/14/20 07:21 BP 95/61 10/14/20 04:59 Pulse Ox 100 10/14/20 07:21 Intake & Output 10/13/20 10/14/20 10/14/20 18:59 06:59 18:59 Intake Total 200 Output Total 100 Balance 100 Weight 85.3 kg Intake: Oral 200 Output: Stool 100 Other: Voiding Method Diaper Incontinent # Voids 1 - Exam GENERAL: The patient is alert and oriented x2-3, not in any acute distress. Well developed, well nourished. Does have tremor which is chronic HEENT: Pupils are round and equally reacting to light. EOMI. No scleral icterus. No conjunctival pallor. Normocephalic, atraumatic. No pharyngeal erythema. No thyromegaly. CARDIOVASCULAR: S1 and S2 present. No murmurs, rubs, or gallops. PULMONARY: Diminished breath sounds bilaterally with no wheezing or rhonchi noted ABDOMEN: Soft, nontender, nondistended, normoactive bowel sounds. No palpable organomegaly. MUSCULOSKELETAL: No joint swelling or deformity. EXTREMITIES: No cyanosis, clubbing, or pedal edema. NEUROLOGICAL: Parkinsonian tremor and significant generalized weakness. SKIN: No rashes. - Labs CBC & Chem 7: 10/14/20 06:03 10/14/20 06:03 Labs: Abnormal Lab Results - Last 24 Hours (Table) 10/13/20 10/13/20 10/13/20 Range/Units 13:26 13:26 13:26 WBC 18.9 H (3.8-10.6) k/uL RBC 2.65 L (3.80-5.40) m/uL Hgb 8.4 L (11.4-16.0) gm/dL Hct 26.4 L (34.0-46.0) % Neutrophils # 14.4 H (1.3-7.7) k/uL Monocytes # 1.3 H (0-1.0) k/uL Sodium 136 L (137-145) mmol/L BUN 42 H (7-17) mg/dL Creatinine 2.96 H (0.52-1.04) mg/dL Glucose 106 H (74-99) mg/dL Alkaline Phosphatase 129 H (38-126) U/L Total Protein 8.5 H (6.3-8.2) g/dL Urine Appearance Cloudy H (Clear) Urine Protein 1+ H (Negative) Urine Blood Large H (Negative) Ur Leukocyte Esterase Large H (Negative) Urine WBC 14 H (0-5) /hpf Urine Bacteria Moderate H (None) /hpf Urine Mucus Rare H (None) /hpf Microbiology - Last 24 Hours (Table) 10/13/20 13:26 Urine Culture - Preliminary Urine,Voided Assessment and Plan Assessment: -Acute metabolic encephalopathy from acute renal failure which is again secondary to dehydration patient will be started on IV fluids will reassess her tomorrow. I cannot completely rule out the mild left-sided pneumonia because of which I'll last on Rocephin. Urine culture pending at this time. -Possible sepsis, present on admission secondary to a component of metabolic encephalopathy, possible left-sided pneumonia, and possible acute urinary tract infection -History of chronic respiratory failure and O2 dependent in the outpatient setting with 3 L via nasal cannula -Worsening parkinsonian symptoms tremor and generalized weakness: Patient was evaluated by neurology with adjustments made to medications and recommending outpatient follow-up with her neurologist Dr. Garrett in the outpatient setting. -Mild hypovolemic hyponatremia, improved sodium is 137 -Leukocytosis due to assessment #1, tending down with a white blood count of 13.87 today -Possible worsening parkinsonian dementia. Patient was started on Seroquel as- needed basis for agitation episodes if any. -Generalized deconditioning and chronic weakness -Gastroesophageal reflux disease -hypertension -Seizure disorder -hyperthyroidism -DVT prophylaxis with the subcutaneous heparin Plan: Continue with gentle IV hydration and repeat BMP in the morning and monitor kidney functions. Urine culture preliminary not resulted at this time and will continue on ceftriaxone. Neurology evaluated the patient and made some minor adjustments. Patient is a resident at [facility] with case management and social work following as patient will be returning there upon discharge.
[2020-10-14] MEDS: traMADol 50 MG TAB PO PRN (20:47)
[2020-10-14] MEDS: MELATONIN 3 MG TABLET PO SCH (20:49)
[2020-10-14] MEDS: PRIMIDONE 50 MG TAB PO SCH (22:01)
[2020-10-15] MEDS: HYDROcodone/APAP 5-325MG 1 EACH TAB PO PRN ×3 (01:07→15:48)
[2020-10-15] MEDS: QUEtiapine 25 MG TAB PO PRN ×2 (01:11→22:45)
[2020-10-15] MEDS: SODIUM CHLORIDE 0.9% 1,000 ML IV SCH ×2 (05:52→15:44)
[2020-10-15] MEDS: LEVOTHYROXINE 50 MCG TAB PO SCH (05:52)
[2020-10-15] MEDS: ACETAMINOPHEN TAB 325 MG TAB PO SCH ×3 (05:52→20:37)
[2020-10-15] MEDS: ASPIRIN 81 MG PO SCH (08:14)
[2020-10-15] MEDS: CARBIDOPA-LEVODOPA 25-100 MG 1 EACH TAB PO SCH ×3 (08:14→22:45)
[2020-10-15] MEDS: SERTRALINE 100 MG TAB PO SCH (08:15)
[2020-10-15] MEDS: LACTULOSE 20 GM/30 ML CUP PO SCH ×3 (08:15→20:36)
[2020-10-15] MEDS: CYANOCOBALAMIN 500 MCG TAB PO SCH (08:15)
[2020-10-15] MEDS: FOLIC ACID 1 MG TAB PO SCH (08:15)
[2020-10-15] MEDS: MAGNESIUM OXIDE 400 MG TAB PO SCH ×3 (08:15→20:36)
[2020-10-15] MEDS: levETIRAcetam 500 MG TAB PO SCH ×2 (08:15→15:45)
[2020-10-15] MEDS: allopurinoL 100 MG TAB PO SCH (08:15)
[2020-10-15] MEDS: PANTOPRAZOLE 40 MG TABLET PO SCH (08:15)
[2020-10-15] MEDS: HEPARIN SODIUM,PORCINE/PF 5,000 UNIT/0.5 ML SYRINGE SQ SCH ×3 (08:15→23:58)
[2020-10-15] MEDS: METOPROLOL TARTRATE 12.5 MG TAB PO SCH ×2 (08:15→15:45)
[2020-10-15] MEDS: IPRATROPIUM-ALBUTEROL 3 ML NEB INHALATION SCH ×4 (08:31→19:37)
[2020-10-15] MEDS: BUDESONIDE 0.5 MG/2 ML NEBU INHALATION SCH ×2 (08:31→19:37)
[2020-10-15] MEDS: traMADol 50 MG TAB PO PRN ×2 (11:45→21:41)
[2020-10-15 12:37] LABS: African American GFR (CKD) 43 (>60 ml/min/1.73 sqM); Anion Gap 5 mmol/L; Blood Urea Nitrogen 32 mg/dL (7-17); Calcium 8.8 mg/dL (8.4-10.2); Carbon Dioxide 23 mmol/L (22-30); Chloride 110 mmol/L (98-107); Glucose 114 mg/dL (74-99); Non-African American GFR(CKD) 37 (>60 ml/min/1.73 sqM); Potassium 4.4 mmol/L (3.5-5.1); Sodium 138 mmol/L (137-145)
[2020-10-15] MEDS: MAG HYDROX/AL HYDROX/SIMETH 30 ML CUP PO PRN (12:58)
[2020-10-15 13:45] LABS: Basophils % (A) 0 %; Eosinophils # (A) 0.7 k/uL (0-0.7); Eosinophils % (A) 9 %; HCT 23.1 % (34.0-46.0); HGB 7.3 gm/dL (11.4-16.0); Hypochromasia Moderate; Lymphocytes # (A) 1.4 k/uL (1.0-4.8); Lymphocytes % (A) 19 %; MCH 31.7 pg (25.0-35.0); MCHC 31.7 g/dL (31.0-37.0); MCV 100.2 fL (80.0-100.0); Macrocytosis Slight; Mean Platelet Volume 9.3; Monocytes # (A) 0.7 k/uL (0-1.0); Monocytes % (A) 9 %; Neutrophils # (A) 4.6 k/uL (1.3-7.7); Neutrophils % (A) 60 %; Platelet Count 233 k/uL (150-450); RDW 14.8 % (11.5-15.5); WBC 7.6 k/uL (3.8-10.6)
--- NOTE | 2020-10-15 16:05 | P.PN ---
Subjective Progress Note Date: 10/15/20 The patient is seen at bedside and states is doing well. Per the patient's nurse her tremor is improving compared to yesterday. Denies of any new neurological problems. Objective - Vital Signs Vital signs: Vital Signs Temp 97.8 F 10/15/20 11:52 Pulse 76 10/15/20 15:49 Resp 14 10/15/20 11:52 BP 153/91 10/15/20 11:52 Pulse Ox 98 10/15/20 11:52 Intake & Output 10/14/20 10/15/20 10/15/20 18:59 06:59 18:59 Intake Total 1000 400 Output Total 320 400 Balance 680 0 Weight 85.3 kg Intake: Oral 1000 400 Output: Stool 320 400 Other: Voiding Method Diaper Diaper Incontinent Incontinent # Voids 2 1 # Bowel Movements 1 - Exam GENERAL: The patient is lying in bed and is not in acute distress. NEUROLOGICAL: Higher mental function: The patient is awake, alert, oriented to self, place and time. Patient is able to identify objects such as pen and phone correctly. Patient is following commands. No aphasia and no neglect. Cranial nerves: The pupils are round, equal and reactive to light. Visual mcgarry are full to confrontation throughout. Extraocular movement is intact no nystagmus is noted. Facial sensation is normal to touch throughout. The facial strength is normal throughout. Hearing is moderately decreased bilaterally to hand rub. Tongue is midline and moved [id number] without any difficulty. No dysarthria is noted. Shoulder shrug is normal bilaterally. Motor: Gait is deferred. The strength is bilateral upper extremities are 5/5 while Right lower extremity is 5- proximally while distally is 4+ (hard to assess because of cooperation). Left lower extremity is 4 proximally and ankle seems 2/5 (according to patient this is chronic and has lower back pain). Normal tone and bulk. She has some resting tremor over the right hand but is more prominent upon raising/lifting the upper extremity and worse with end action movement (finger to nose). Cerebellum: Normal finger to nose bilaterally (has end action tremor with finger to nose over the right). Sensation: Sensation is normal to touch throughout. Reflexes (right/left): 2+ in upper while lowers are 1+ Plantars are downgoing bilaterally. - Labs CBC & Chem 7: 10/15/20 11:30 10/15/20 11:30 Labs: Abnormal Lab Results - Last 24 Hours (Table) 10/15/20 10/15/20 Range/Units 11:30 11:30 RBC 2.30 L (3.80-5.40) m/uL Hgb 7.3 L (11.4-16.0) gm/dL Hct 23.1 L (34.0-46.0) % MCV 100.2 H (80.0-100.0) fL Chloride 110 H (98-107) mmol/L BUN 32 H (7-17) mg/dL Creatinine 1.31 H (0.52-1.04) mg/dL Glucose 114 H (74-99) mg/dL Microbiology - Last 24 Hours (Table) 10/13/20 13:26 Urine Culture - Preliminary Urine,Voided Gram Neg Bacilli Assessment and Plan Assessment: Altered mental status likely due to multifactorial: Septic encephalopathy from my ureter tract infection also component of toxic-metabolic encephalopathy (A cute kidney isuffiency on CKI, acute on chronic anemia)--mentation improved Parkinson's disease Dementia possibly due multifactoria (Parkinson's and vascular) Seizure disorder that is reported on previous neurology note in our facility Acute on chronic kidney insufficiency Acute on chronic anemia Acute urinary tract infection Congestive heart failure Hypertension Restless leg syndrome Plan: Continue Sinemet [id number] milligrams 1 tablet 3 times a day. Continue Keppra 500 mg 1 tablet twice a day for her history of seizures (as requesed by Dr. Sung's last note on 01/16/2020). Avoid Tramadol since can lower seizure threshold. I recommend TANVIR scan as outpatient for patient history of Parkinson's disease. Recommend EMG with [facility] as outpatient for possibly lumbosacral radiculopathy vs neuropathy on the left lower extremity. Will defer the rest of medical management to the primary team. Patient needs to follow-up with her neurologist (Dr. Garrett) as outpatient with in 2 weeks for further care. The plan is discussed with the patient's nurse. There is no further neurological work-up. Neurology will sign off. Please reconsult if needed. Juanito Glover MD Neuro-Hospitalist Time with Patient: Less than 30
--- NOTE | 2020-10-15 16:15 | P.PN ---
Subjective Progress Note Date: 10/15/20 85-year-old female even because of increasing confusion and increasing encephalopathy patient has not been eating or drinking well. Patient does have parkinsonian dementia. Patient usually is alert and oriented 3 as per the daughter. Patient appeared to be dehydrated patient is in acute renal failure because of which patient is being admitted patient urine is real abnormal but not convincing for urinary tract infection although urine cultures are being obtained patient had a chest x-ray which is showing some bilateral streaky opacities most probably atelectasis but pneumonia cannot be ruled out because of leukocytosis patient was started on Rocephin. Patient is unable to tell me if she has dysuria patient is presently alert oriented 1. Patient is able to tell her name but doesn't know where she is. Patient does have history of Parkinson's was unable to see her neurologist for long time and was having increasing tremor. 10/14/2020 Patient is seen and evaluated this morning in follow-up and is much more awake and alert today responding appropriately to questions and commands. Patient is asking when she can return to [facility]. Patient was seen and evaluated by neurology for her tremors and recommending to continue to follow-up with her neurologist Dr. Garrett outpatient with minor changes in medications. Patient continues on IV ceftriaxone with possible UTI and cultures have not resulted at this time. Patient continues on 3 L of nasal cannula which is her baseline. White blood count trending down and is 13.87 with a hemoglobin of 7.2 with a known history of anemia. Sodium is 137 with a potassium of 4.6 and creatinine improved at 2.3 and will continue with gentle IV fluids. 10/15/2020 Patient is seen and evaluated in follow-up and continues to be closely monitored. Creatinine continues to improve and is currently 1.31 with a BUN of 32. Sodium is 138 and potassium is 4.4. White blood count improved at 7.6 and hemoglobin is 7.3 and does have history of chronic anemia. Patient is afebrile and continues to ask when she is returning home. Patient is a resident at [facility] and will be returning there upon discharge. Patient is continued on IV ceftr iaxone and urine cultures are growing gram-negative bacilli preliminary and given her history of ESBL with multiple urinary tract infections will consult infectious disease and appreciate antibiotic recommendations. No reports of chest pain or palpitations. Review of systems: Constitutional: No reports of fatigue, fever, or chills Cardiovascular: No reports of chest pain or palpitations Respiratory: No reports of shortness of breath or cough GI: No reports of nausea, vomiting, or diarrhea : No reports of dysuria or retention Neurovascular: Reports generalized weakness All medications have been reviewed Active Medications Acetaminophen (Acetaminophen Tab 325 Mg Tab) 650 mg PO TID@0500,1300,1900 [facility] Last Admin: 10/15/20 12:59 Dose: 650 mg Documented by: Hydrocodone Bitart/Acetaminophen (Hydrocodone/Apap 5-325mg 1 Each Tab) 1 each PO Q8H PRN PRN Reason: Pain Last Admin: 10/15/20 15:48 Dose: 1 each Documented by: Al Hydroxide/Mg Hydroxide (Mag Hydrox/Al Hydrox/Simeth 30 Ml Cup) 30 ml PO Q4HR PRN PRN Reason: GI Upset Last Admin: 10/15/20 12:58 Dose: 30 ml Documented by: Albuterol/Ipratropium (Ipratropium-Albuterol 3 Ml Neb) 3 ml INHALATION RT-QID [facility] Last Admin: 10/15/20 15:36 Dose: 3 ml Documented by: Allopurinol (Allopurinol 100 Mg Tab) 200 mg PO DAILY@0700 [facility] Last Admin: 10/15/20 08:15 Dose: 200 mg Documented by: Aspirin (Aspirin 81 Mg) 81 mg PO DAILY [facility] Last Admin: 10/15/20 08:14 Dose: 81 mg Documented by: Baclofen (Baclofen 10 Mg Tab) 10 mg PO TID PRN PRN Reason: Mild Spasms Budesonide (Budesonide 0.5 Mg/2 Ml Nebu) 0.5 mg INHALATION RT-BID [facility] Last Admin: 10/15/20 08:31 Dose: 0.5 mg Documented by: Carbidopa/Levodopa (Carbidopa-Levodopa 25-100 Mg 1 Each Tab) 1 each PO TID [facility] Last Admin: 10/15/20 15:45 Dose: 1 each Documented by: Cyanocobalamin (Cyanocobalamin 500 Mcg Tab) 500 mcg PO DAILY [facility] Last Admin: 10/15/20 08:15 Dose: 500 mcg Documented by: Folic Acid (Folic Acid 1 Mg Tab) 1 mg PO DAILY [facility] Last Admin: 10/15/20 08:15 Dose: 1 mg Documented by: Heparin Sodium (Porcine) (Heparin Sodium,Porcine/Pf 5,000 Unit/0.5 Ml Syringe) 5,000 unit SQ Q8HR [facility] Last Admin: 10/15/20 15:45 Dose: 5,000 unit Documented by: Sodium Chloride (Saline 0.9%) 1,000 mls @ 75 mls/hr IV .[id number] [facility] Last Admin: 10/15/20 15:44 Dose: 75 mls/hr Documented by: Ceftriaxone Sodium 2 gm/ (Sodium Chloride) 50 mls @ 100 mls/hr IVPB Q24HR [facility] Last Admin: 10/15/20 08:27 Dose: 100 mls/hr Documented by: Lactulose (Lactulose 20 Gm/30 Ml Cup) 20 gm PO BID [facility] Last Admin: 10/15/20 08:16 Dose: Not Given Documented by: Levetiracetam (Levetiracetam 500 Mg Tab) 500 mg PO BID@0700,1600 [facility] Last Admin: 10/15/20 15:45 Dose: 500 mg Documented by: Levothyroxine Sodium (Levothyroxine 50 Mcg Tab) 50 mcg PO DAILY@0630 [facility] Last Admin: 10/15/20 05:52 Dose: 50 mcg Documented by: Magnesium Oxide (Magnesium Oxide 400 Mg Tab) 400 mg PO TID@0700,1300,1900 [facility] Last Admin: 10/15/20 12:58 Dose: 400 mg Documented by: Melatonin (Melatonin 3 Mg Tablet) 3 mg PO HS@2000 [facility] Last Admin: 10/14/20 20:49 Dose: 3 mg Documented by: Metoprolol Tartrate (Metoprolol Tartrate 12.5 Mg Tab) 12.5 mg PO BID@0700,1600 [facility] Last Admin: 10/15/20 15:45 Dose: 12.5 mg Documented by: Naloxone HCl (Naloxone 0.4 Mg/Ml 1 Ml Vial) 0.2 mg IV Q2M PRN PRN Reason: Opioid Reversal Pantoprazole Sodium (Pantoprazole 40 Mg Tablet) 40 mg PO DAILY@0700 [facility] Last Admin: 10/15/20 08:15 Dose: 40 mg Documented by: Primidone (Primidone 50 Mg Tab) 25 mg PO HS [facility] Last Admin: 10/14/20 22:01 Dose: 25 mg Documented by: Quetiapine Fumarate (Quetiapine 25 Mg Tab) 25 mg PO HS PRN PRN Reason: Agitation Last Admin: 10/15/20 01:11 Dose: 25 mg Documented by: Ropinirole HCl (Ropinirole Hcl 0.25 Mg Tab) 0.5 mg PO TID@0700,1300,1900 [facility] Last Admin: 10/15/20 12:58 Dose: 0.5 mg Documented by: Sertraline HCl (Sertraline 100 Mg Tab) 100 mg PO DAILY@0700 [facility] Last Admin: 10/15/20 08:15 Dose: 100 mg Documented by: Tramadol HCl (Tramadol 50 Mg Tab) 50 mg PO Q6H PRN PRN Reason: Pain Last Admin: 10/15/20 11:45 Dose: 50 mg Documented by: Objective - Vital Signs Vital signs: Vital Signs Temp 97.8 F 10/15/20 11:52 Pulse 76 10/15/20 15:49 Resp 14 10/15/20 11:52 BP 153/91 10/15/20 11:52 Pulse Ox 98 10/15/20 11:52 Intake & Output 10/14/20 10/15/20 10/15/20 18:59 06:59 18:59 Intake Total 1000 400 Output Total 320 400 Balance 680 0 Weight 85.3 kg Intake: Oral 1000 400 Output: Stool 320 400 Other: Voiding Method Diaper Diaper Incontinent Incontinent # Voids 2 1 # Bowel Movements 1 - Exam GENERAL: The patient is alert and oriented x2-3, not in any acute distress. Well developed, well nourished. Does have tremor which is chronic. Temp is 97.8F, pulse is 65, respirations are 14, blood pressure is 153/91, oxygen saturation is 98% on 2 L via nasal cannula. Chronically wears 2-3 L in the outpatient setting. HEENT: Pupils are round and equally reacting to light. EOMI. No scleral icterus. No conjunctival pallor. Normocephalic, atraumatic. No pharyngeal erythema. No thyromegaly. CARDIOVASCULAR: S1 and S2 muffled. PULMONARY: Diminished breath sounds bilaterally with no wheezing or rhonchi not ed ABDOMEN: Soft, obese, nontender, nondistended, normoactive bowel sounds. No palpable organomegaly. MUSCULOSKELETAL: No joint swelling or deformity. EXTREMITIES: No cyanosis, clubbing, or pedal edema. NEUROLOGICAL: Parkinsonian tremor and significant generalized weakness. SKIN: No rashes. - Labs CBC & Chem 7: 10/15/20 11:30 10/15/20 11:30 Labs: Abnormal Lab Results - Last 24 Hours (Table) 10/15/20 10/15/20 Range/Units 11:30 11:30 RBC 2.30 L (3.80-5.40) m/uL Hgb 7.3 L (11.4-16.0) gm/dL Hct 23.1 L (34.0-46.0) % MCV 100.2 H (80.0-100.0) fL Chloride 110 H (98-107) mmol/L BUN 32 H (7-17) mg/dL Creatinine 1.31 H (0.52-1.04) mg/dL Glucose 114 H (74-99) mg/dL Microbiology - Last 24 Hours (Table) 10/13/20 13:26 Urine Culture - Preliminary Urine,Voided Gram Neg Bacilli Assessment and Plan Assessment: -Acute metabolic encephalopathy from acute renal failure which is again secondary to dehydration -Acute urinary tract infection, present on admission growing gram-negative bacilli -Possible sepsis, present on admission secondary to a component of metabolic encephalopathy, and possible acute urinary tract infection -History of chronic respiratory failure and O2 dependent in the outpatient setting with 3 L via nasal cannula -Worsening parkinsonian symptoms tremor and generalized weakness -Mild hypovolemic hyponatremia, improved -Leukocytosis due to assessment #1 -Possible worsening parkinsonian dementia -Generalized deconditioning and chronic weakness -Gastroesophageal reflux disease -hypertension -Seizure disorder -hyperthyroidism -DVT prophylaxis with the subcutaneous heparin Plan: Continue with gentle IV hydration and repeat BMP in the morning and monitor kidney functions. Urine culture preliminary showing gram-negative bacilli and will continue with IV ceftriaxone and will consult infectious disease even her history of multiple history of urinary tract infections with ESBL. Will continue gentle IV hydration and repeat labs with further recommendations to follow. Due to multiple complex medical issues, prognosis is guarded. Patient will be returning to [facility] as she is a resident there.
[2020-10-15] MEDS: MELATONIN 3 MG TABLET PO SCH (20:36)
[2020-10-15] MEDS: PRIMIDONE 50 MG TAB PO SCH (20:37)
[2020-10-16] MEDS: HYDROcodone/APAP 5-325MG 1 EACH TAB PO PRN ×3 (00:43→17:50)
[2020-10-16] MEDS: traMADol 50 MG TAB PO PRN ×3 (03:31→23:29)
[2020-10-16 04:25] LABS: Basophils % (A) 1 %; Eosinophils # (A) 0.6 k/uL (0-0.7); Eosinophils % (A) 9 %; HCT 24.1 % (34.0-46.0); HGB 7.3 gm/dL (11.4-16.0); Hypochromasia Moderate; Lymphocytes # (A) 1.8 k/uL (1.0-4.8); Lymphocytes % (A) 27 %; MCH 30.5 pg (25.0-35.0); MCHC 30.4 g/dL (31.0-37.0); MCV 100.5 fL (80.0-100.0); Macrocytosis Slight; Mean Platelet Volume 9.5; Monocytes # (A) 0.5 k/uL (0-1.0); Monocytes % (A) 8 %; Neutrophils # (A) 3.3 k/uL (1.3-7.7); Neutrophils % (A) 51 %; Platelet Count 250 k/uL (150-450); RDW 15.1 % (11.5-15.5); WBC 6.6 k/uL (3.8-10.6)
[2020-10-16 04:38] LABS: Potassium 4.5 mmol/L (3.5-5.1)
[2020-10-16 04:39] LABS: African American GFR (CKD) 55 (>60 ml/min/1.73 sqM); Anion Gap 5 mmol/L; Blood Urea Nitrogen 24 mg/dL (7-17); Calcium 9.2 mg/dL (8.4-10.2); Carbon Dioxide 23 mmol/L (22-30); Chloride 110 mmol/L (98-107); Glucose 104 mg/dL (74-99); Non-African American GFR(CKD) 48 (>60 ml/min/1.73 sqM); Sodium 138 mmol/L (137-145)
[2020-10-16] MEDS: LEVOTHYROXINE 50 MCG TAB PO SCH (04:56)
[2020-10-16] MEDS: ACETAMINOPHEN TAB 325 MG TAB PO SCH ×3 (04:56→20:17)
--- NOTE | 2020-10-16 06:59 | CONS ---
CONSULTATION DATE OF SERVICE: 10/13/2020 REASON FOR CONSULTATION: Urinary tract infection with concern for possibly ESBL pathogen. HISTORY OF PRESENT ILLNESS: The patient is an 85-year-old female with underlying history significant for recurrent urinary tract infection with recent urine positive for ESBL Klebsiella, for which the patient has completed her antibiotic therapy. Patient is currently undergoing rehab at an inpatient rehab facility. Patient was noticed to be more confused than usual and apparently the patient has not been eating or drinking because of her tremors and the long-term was concerned the patient may have a UTI. With these symptoms, the patient was sent to the ER 2 days ago on . On arrival to the ER the patient was afebrile and no fever has been recorded. Subsequently the patient did have white count 15.9 and came down to 5.7 today. She also has elevated BUN and creatinine and has improvement in her metabolic profile. The patient did have a positive UA. Urine showing a Gram-negative. Patient treated with Rocephin. With concern for history of ESBL pathogen, Infectious Disease was consulted for further management of antibiotic therapy. Patient at the time of my evaluation is more awake and alert. The patient is feeling better. The patient denies having any headache. No chest pain. No shortness of breath, cough, abdominal pain, no diarrhea. REVIEW OF SYSTEMS: Positive points have been mentioned in HPI. Rest of systems are negative. PAST MEDICAL HISTORY: Recurrent UTI infection, dementia, CVA, TIA, gastroesophageal reflux disease , hypertension, osteoarthritis, pneumonia, seizure disorder, hypothyroidism, restless leg syndrome, hemiplegia. PAST SURGICAL HISTORY: Ileostomy, back surgery, and cholecystectomy. SOCIAL HISTORY: No history of smoking, drinking or drug use. FAMILY HISTORY: Father with history of lung cancer. ALLERGIES: AUGMENTIN and CODEINE. MEDICATIONS: The patient is currently on Tylenol, [place], Maalox, DuoNeb, Zyloprim, aspirin, baclofen, Pulmicort, Rocephin 2 g daily, vitamin B12, folic acid, heparin, lactulose, Keppra, Synthroid, Mag oxide, melatonin, Narcan, Protonix, Seroquel and Requip. PHYSICAL EXAMINATION: VITAL SIGNS: Blood pressure is 141/68 with a pulse of 60, temperature 98, she is 98% on 2 L nasal cannula. GENERAL DESCRIPTION: Patient is an elderly female lying in bed in no distress. No tachypnea or accessory muscles of respiration use. HEENT: Examination shows pallor, no scleral icterus. Oral mucous membrane is dry. NECK: Trachea central, no thyromegaly. LUNGS: Unlabored breathing, clear to auscultation anteriorly. HEART: S1-S2, regular rate and rhythm. ABDOMEN: Soft, no tenderness. No guarding or rigidity. EXTREMITIES: No edema of the feet. SKIN: No rash or mass palpable. NEUROLOGICAL: Patient is awake, alert, oriented times two. Mood and affect normal. LABS: Hemoglobin 7.8, white count 7.7, white count 13.9, BUN of 32, creatinine 1.31. Urine now showing Gram-negative. DIAGNOSTIC IMPRESSION: Patient presenting to the hospital with mental status changes, weakness. Did have significantly positive UA and history of recurrent UTI, likely secondary to symptomatic urinary tract infection. Likely from enteric Gram-negative, even though the patient did have a history of ESBL pathogen. However, the patient apparently did have improvement with Rocephin and could be more likely Rocephin sensitive pathogen. PLAN: 1. We will keep the patient on Rocephin 2 grams daily. 2. Gentle IV fluid. 3. We will follow on clinical condition and culture to further adjust medication if needed. Thank you for this consultation. Will follow this patient along with you. MMODL / IJN: [id number] /
[2020-10-16] MEDS: allopurinoL 100 MG TAB PO SCH (07:51)
[2020-10-16] MEDS: MAGNESIUM OXIDE 400 MG TAB PO SCH ×3 (07:52→20:18)
[2020-10-16] MEDS: levETIRAcetam 500 MG TAB PO SCH ×2 (07:52→17:49)
[2020-10-16] MEDS: METOPROLOL TARTRATE 12.5 MG TAB PO SCH ×2 (07:53→17:49)
[2020-10-16] MEDS: SERTRALINE 100 MG TAB PO SCH (07:55)
[2020-10-16] MEDS: HEPARIN SODIUM,PORCINE/PF 5,000 UNIT/0.5 ML SYRINGE SQ SCH ×4 (07:55→23:29)
[2020-10-16] MEDS: ASPIRIN 81 MG PO SCH (07:56)
[2020-10-16] MEDS: CARBIDOPA-LEVODOPA 25-100 MG 1 EACH TAB PO SCH ×3 (07:56→20:19)
[2020-10-16] MEDS: LACTULOSE 20 GM/30 ML CUP PO SCH ×3 (07:57→20:19)
[2020-10-16] MEDS: CYANOCOBALAMIN 500 MCG TAB PO SCH (07:57)
[2020-10-16] MEDS: FOLIC ACID 1 MG TAB PO SCH (07:57)
[2020-10-16] MEDS: PANTOPRAZOLE 40 MG TABLET PO SCH (07:59)
[2020-10-16] MEDS: MAG HYDROX/AL HYDROX/SIMETH 30 ML CUP PO PRN ×2 (08:49→22:30)
[2020-10-16] MEDS: IPRATROPIUM-ALBUTEROL 3 ML NEB INHALATION SCH ×4 (09:07→20:16)
[2020-10-16] MEDS: BUDESONIDE 0.5 MG/2 ML NEBU INHALATION SCH ×2 (09:08→20:17)
[2020-10-16] MEDS: SODIUM CHLORIDE 0.9% 1,000 ML IV SCH (17:57)
--- NOTE | 2020-10-16 18:36 | PN ---
PROGRESS NOTE DATE OF SERVICE: 10/16/2020 This 85-year-old woman who was admitted with acute UTI with sepsis also had Proteus mirabilis grown from the culture. Patient on broad spectrum IV antibiotics. No chest pain. No palpitations. No fever. PHYSICAL EXAMINATION: Alert and oriented x2. Pulse is 74, blood pressure 153/70, respiration 12, temperature 98.2, pulse ox 98% on 2 L. HEENT: Conjunctivae normal. Oral mucosa moist. NECK: No jugular venous distention. No lymph node enlargement. CARDIOVASCULAR: S1, S2, muffled. No S3, no S4, RESPIRATORY: Diminished breath sounds at the bases. A few scattered rhonchi. ABDOMEN: Soft, nontender. LEGS: No edema, no swelling. NERVOUS SYSTEM: No focal deficits. LAB: Hemoglobin 7.2, sodium 130, potassium 4.5. ASSESSMENT: 1. Acute urinary tract infection with sepsis with Proteus mirabilis. 2. Change in mental status, acute metabolic encephalopathy. 3. History of chronic respiratory failure on home oxygen at 3 L nasal cannula. 4. Worsening Parkinson's syndrome, tremor and generalized weakness. 5. Gait dysfunction. 6. Mild hypovolemic hyponatremia. 7. Leukocytosis. 8. Possible worsening Parkinson's dementia. 9. Generalized deconditioning and chronic weakness. 10.GERD. 11.Hypertension. 12.History of seizure disorder. 13.Hypothyroidism. RECOMMENDATION: Recommend to continue current management and continue symptomatic treatment. Otherwise, continue the antibiotics, PT/OT evaluation, possible ECF rehab. Guarded prognosis. Further recommendations to follow. MMODL / IJN: [id number] /
[2020-10-16] MEDS: MELATONIN 3 MG TABLET PO SCH (20:18)
[2020-10-16] MEDS: PRIMIDONE 50 MG TAB PO SCH (20:19)
--- NOTE | 2020-10-17 00:06 | PN ---
PROGRESS NOTE DATE OF SERVICE: 10/16/2020 REASON FOR FOLLOWUP: Urinary tract infection. INTERVAL HISTORY: The patient is currently afebrile. The patient is breathing comfortably. Patient denies having any chest pain, shortness of breath or cough. No nausea, no vomiting. No abdominal pain or diarrhea. PHYSICAL EXAMINATION: Blood pressure 179/69 with a pulse of 70, temperature of 97.8. She is 99% on 2 L nasal cannula. General description is an elderly female lying in bed in no distress. HEENT: Examination shows no pallor or scleral icterus. Oral mucosal membranes are dry. Lungs: Unlabored breathing. Clear to auscultation anteriorly. Heart S1, S2. Regular rate and rhythm. ABDOMEN: Soft, no tenderness. LABS: Hemoglobin is 7.3, white count 6.6, BUN 24, creatinine 1.07. DIAGNOSTIC IMPRESSION AND PLAN: Patient admitted to the hospital with mental status changes multifactorial and did have symptomatic urinary tract infection. Urine has been Proteus mirabilis overall response to the Rocephin to continue. Transition to oral antibiotic on discharge. Continue supportive care. MMODL / IJN: [id number] /
[2020-10-17] MEDS: HYDROcodone/APAP 5-325MG 1 EACH TAB PO PRN ×3 (02:38→20:48)
[2020-10-17] MEDS: SODIUM CHLORIDE 0.9% 1,000 ML IV SCH ×3 (04:12→23:00)
[2020-10-17] MEDS: LEVOTHYROXINE 50 MCG TAB PO SCH (05:09)
[2020-10-17] MEDS: ACETAMINOPHEN TAB 325 MG TAB PO SCH ×3 (05:09→20:04)
[2020-10-17] MEDS: allopurinoL 100 MG TAB PO SCH (07:14)
[2020-10-17] MEDS: MAGNESIUM OXIDE 400 MG TAB PO SCH ×3 (07:15→20:06)
[2020-10-17] MEDS: levETIRAcetam 500 MG TAB PO SCH ×2 (07:15→15:42)
[2020-10-17] MEDS: METOPROLOL TARTRATE 12.5 MG TAB PO SCH ×2 (07:16→15:42)
[2020-10-17] MEDS: PANTOPRAZOLE 40 MG TABLET PO SCH (07:16)
[2020-10-17] MEDS: SERTRALINE 100 MG TAB PO SCH (07:16)
[2020-10-17] MEDS: HEPARIN SODIUM,PORCINE/PF 5,000 UNIT/0.5 ML SYRINGE SQ SCH ×3 (07:17→23:16)
[2020-10-17] MEDS: traMADol 50 MG TAB PO PRN ×2 (07:17→14:57)
[2020-10-17] MEDS: CARBIDOPA-LEVODOPA 25-100 MG 1 EACH TAB PO SCH ×3 (08:44→20:06)
[2020-10-17] MEDS: ASPIRIN 81 MG PO SCH (08:44)
[2020-10-17] MEDS: FOLIC ACID 1 MG TAB PO SCH (08:45)
[2020-10-17] MEDS: CYANOCOBALAMIN 500 MCG TAB PO SCH (08:45)
[2020-10-17] MEDS: MAG HYDROX/AL HYDROX/SIMETH 30 ML CUP PO PRN (08:45)
[2020-10-17] MEDS: IPRATROPIUM-ALBUTEROL 3 ML NEB INHALATION SCH ×4 (08:55→20:23)
[2020-10-17] MEDS: BUDESONIDE 0.5 MG/2 ML NEBU INHALATION SCH ×2 (08:55→20:23)
[2020-10-17] MEDS: LACTULOSE 20 GM/30 ML CUP PO SCH ×2 (08:56→20:07)
--- NOTE | 2020-10-17 14:00 | PN ---
PROGRESS NOTE DATE OF SERVICE: 10/17/2020. This 85-year-old woman who was admitted with acute UTI with sepsis with Proteus mirabilis, is being closely monitored. No chest pain. No palpitations. No fever. The patient had gait dysfunction. ECF rehab is being evaluated. Hemoglobin stable around 7.3 at this time. PHYSICAL EXAMINATION: Alert and oriented x2. Pulse 68, blood pressure 161/69, respiration 18, temperature 98 degrees, pulse ox 99% on 2 L. HEENT: Conjunctivae normal. NECK: No JVD. CARDIOVASCULAR: S1, S2 muffled. RESPIRATION: Breath sounds diminished in the bases. A few rhonchi. ABDOMEN: Soft. NERVOUS SYSTEM: Diffusely weak. ASSESSMENT: 1. Acute urinary tract infection with sepsis with Proteus mirabilis, present on admission. 2. Change in mental status, acute metabolic encephalopathy possibly secondary to sepsis. 3. History of chronic respiratory failure on home oxygen at 3 L nasal cannula. 4. Worsening Parkinson's syndrome, tremor and generalized weakness. 5. Gait dysfunction. 6. Mild hypovolemic hyponatremia. 7. Leukocytosis. 8. Possible worsening of the Parkinson's dementia. 9. Generalized deconditioning and chronic weakness. 10.Gastroesophageal reflux disease. 11.Hypertension. 12.History of seizure disorder. 13.Hypothyroidism. RECOMMENDATIONS AND DISCUSSION: I recommend to continue current medications. Continue to monitor. Symptomatic treatment. Otherwise, at this time, I recommend repeat labs. Continue the hemoglobin. I would also check a serum ferritin and iron. If it is low, I would also recommend serum IV iron. Guarded prognosis. Further recommendations to follow. MMODL / IJN: [id number] /
[2020-10-17] MEDS: SODIUM FERRIC GLUCONAT-SUCROSE 125 MG in SODIUM CHLORIDE 0.9% 100 ML IVPB SCH (14:45)
[2020-10-17 16:51] LABS: % Iron Saturation 22.68 (12.00-45.00); Ferritin 862.3 ng/mL (10.0-291.0)
--- NOTE | 2020-10-17 19:05 | PN ---
PROGRESS NOTE DATE OF SERVICE: 10/17/2020 REASON FOR FOLLOWUP: Proteus mirabilis urinary tract infection. INTERVAL HISTORY: The patient is afebrile. The patient is feeling better. Breathing comfortably. The patient denies having any chest pain or shortness of breath or cough. No nausea, vomiting, abdominal pain, no diarrhea. PHYSICAL EXAMINATION: Blood pressure 131/69, pulse of 73, temperature 98. She is 99% on 2 L nasal cannula. General description is an elderly female lying in in no distress. Respiratory system: Unlabored breathing, clear to auscultation anteriorly. Heart S1, S2. Regular rate and rhythm. ABDOMEN: Soft, no tenderness. LABS: No new labs have been obtained today. DIAGNOSTIC IMPRESSION AND PLAN: Patient with Proteus mirabilis urinary tract infection. Overall improvement on Rocephin, to finish therapy with a short course of oral Ceftin and close outpatient followup. MMODL / IJN: [id number] /
[2020-10-17] MEDS: PRIMIDONE 50 MG TAB PO SCH (20:06)
[2020-10-17] MEDS: MELATONIN 3 MG TABLET PO SCH (20:06)
[2020-10-18] MEDS: traMADol 50 MG TAB PO PRN ×2 (03:31→09:49)
[2020-10-18] MEDS: ACETAMINOPHEN TAB 325 MG TAB PO SCH ×3 (05:54→19:36)
[2020-10-18] MEDS: MAG HYDROX/AL HYDROX/SIMETH 30 ML CUP PO PRN ×2 (05:55→22:47)
[2020-10-18] MEDS: LEVOTHYROXINE 50 MCG TAB PO SCH (06:03)
[2020-10-18] MEDS: BUDESONIDE 0.5 MG/2 ML NEBU INHALATION SCH ×2 (07:27→19:20)
[2020-10-18] MEDS: IPRATROPIUM-ALBUTEROL 3 ML NEB INHALATION SCH ×4 (07:27→19:20)
[2020-10-18 07:30] LABS: Glucose,Whole Blood 98 mg/dL (75-99)
[2020-10-18] MEDS: allopurinoL 100 MG TAB PO SCH (07:48)
[2020-10-18] MEDS: HYDROcodone/APAP 5-325MG 1 EACH TAB PO PRN ×3 (07:48→22:47)
[2020-10-18] MEDS: PANTOPRAZOLE 40 MG TABLET PO SCH (07:48)
[2020-10-18] MEDS: MAGNESIUM OXIDE 400 MG TAB PO SCH ×3 (07:48→19:36)
[2020-10-18] MEDS: HEPARIN SODIUM,PORCINE/PF 5,000 UNIT/0.5 ML SYRINGE SQ SCH ×3 (07:49→22:47)
[2020-10-18] MEDS: levETIRAcetam 500 MG TAB PO SCH ×2 (07:50→15:49)
[2020-10-18] MEDS: METOPROLOL TARTRATE 12.5 MG TAB PO SCH ×2 (07:50→15:49)
[2020-10-18] MEDS: SERTRALINE 100 MG TAB PO SCH (07:51)
[2020-10-18] MEDS: CYANOCOBALAMIN 500 MCG TAB PO SCH (09:35)
[2020-10-18] MEDS: FOLIC ACID 1 MG TAB PO SCH (09:35)
[2020-10-18] MEDS: ASPIRIN 81 MG PO SCH (09:35)
[2020-10-18] MEDS: CARBIDOPA-LEVODOPA 25-100 MG 1 EACH TAB PO SCH ×3 (09:36→20:27)
[2020-10-18] MEDS: LACTULOSE 20 GM/30 ML CUP PO SCH ×2 (09:36→20:28)
[2020-10-18] MEDS: amLODIPine 10 MG TAB PO SCH (10:34)
[2020-10-18 11:15] LABS: Basophils % (A) 0 %; Eosinophils # (A) 0.5 k/uL (0-0.7); Eosinophils % (A) 7 %; HCT 24.9 % (34.0-46.0); HGB 7.6 gm/dL (11.4-16.0); Hypochromasia Moderate; Lymphocytes # (A) 1.4 k/uL (1.0-4.8); Lymphocytes % (A) 20 %; MCH 30.3 pg (25.0-35.0); MCHC 30.3 g/dL (31.0-37.0); MCV 99.9 fL (80.0-100.0); Macrocytosis Slight; Mean Platelet Volume 9.3; Monocytes # (A) 0.4 k/uL (0-1.0); Monocytes % (A) 6 %; Neutrophils # (A) 4.6 k/uL (1.3-7.7); Neutrophils % (A) 66 %; Platelet Count 291 k/uL (150-450); RDW 15.1 % (11.5-15.5)
[2020-10-18 11:20] LABS: African American GFR (CKD) 81 (>60 ml/min/1.73 sqM); Anion Gap 6 mmol/L; Blood Urea Nitrogen 9 mg/dL (7-17); Calcium 8.9 mg/dL (8.4-10.2); Carbon Dioxide 26 mmol/L (22-30); Chloride 108 mmol/L (98-107); Glucose 101 mg/dL (74-99); Non-African American GFR(CKD) 71 (>60 ml/min/1.73 sqM); Potassium 4.4 mmol/L (3.5-5.1); Sodium 140 mmol/L (137-145)
[2020-10-18] MEDS: SODIUM CHLORIDE 0.9% 1,000 ML IV SCH (11:38)
[2020-10-18] MEDS: SODIUM FERRIC GLUCONAT-SUCROSE 125 MG in SODIUM CHLORIDE 0.9% 100 ML IVPB SCH (13:44)
--- NOTE | 2020-10-18 18:27 | PN ---
PROGRESS NOTE DATE OF SERVICE: 10/18/2020 INTERVAL HISTORY: This is an 85-year-old woman who was admitted with acute UTI with sepsis with Proteus mirabilis, also had multiple electrolyte abnormalities. The patient is being closely monitored. No chest pain. No palpitations. No fever. ECF rehab is being planned. Hemoglobin 7.6. PHYSICAL EXAMINATION: GENERAL: Patient is alert and oriented times three. VITAL SIGNS: Pulse 68, blood pressure 174/71, respirations 19, temperature 97.1, pulse ox 100% on 2 liters. HEENT: Conjunctivae normal. NECK: No jugular venous distention. No carotid bruits. No lymph node enlargement. RESPIRATORY: Breath sounds diminished at the bases. A few rhonchi, no crackles. HEART: S1 and S2, muffled. ABDOMEN: Soft, no tenderness. EXTREMITIES: No edema, no swelling. NERVOUS: No focal deficits. LAB STUDIES: Hemoglobin 7.6. Other labs are noted. ASSESSMENT: 1. Acute urinary tract infection with sepsis with Proteus mirabilis, present on admission. 2. Change in mental status acute metabolic encephalopathy possibly secondary to sepsis. 3. History of chronic respiratory failure on home oxygen at 3 L nasal cannula. 4. Worsening Parkinson's syndrome, tremors and generalized weakness. 5. Gait dysfunction. 6. Mild hypovolemic hyponatremia. 7. Leukocytosis. 8. Possible worsening of the Parkinson disease. 9. Generalized deconditioning and chronic weakness. 10.Gastroesophageal reflux disease. 11.Hypertension. 12.History of seizure disorder. 13.Hypothyroidism. RECOMMENDATION AND DISCUSSION: Recommend to continue current management and continue symptomatic treatment. Otherwise, at this time I would recommend repeat labs and PT/OT evaluation, possible ECF rehab. Further recommendations to follow. MMODL / IJN: [id number] /
[2020-10-18] MEDS: MELATONIN 3 MG TABLET PO SCH (19:36)
[2020-10-18] MEDS: PRIMIDONE 50 MG TAB PO SCH (20:27)
--- NOTE | 2020-10-18 21:58 | PN ---
PROGRESS NOTE DATE OF SERVICE: 10/18/2020 REASON FOR FOLLOWUP: Proteus mirabilis urinary tract infection. INTERVAL HISTORY: Patient is afebrile. The patient is breathing comfortably. The patient denies having any chest pain, shortness of breath, cough. No abdominal pain or diarrhea. Wants to go back home. PHYSICAL EXAMINATION: Blood pressure 152/59 with a pulse of 73, temperature is 97.3. She is 98% on 2 L nasal cannula. General description is an elderly female lying in in no distress. Respiratory system: Unlabored breathing, clear to auscultation anteriorly. Heart S1, S2. Regular rate and rhythm. ABDOMEN: Soft, no tenderness. LABS: Hemoglobin is 7.6, white count 7.0. BUN of 9, creatinine 0.77. DIAGNOSTIC IMPRESSION AND PLAN: Patient with Proteus mirabilis urinary tract infection. Overall improvement on Rocephin. Finish therapy with oral Ceftin for about a week and close outpatient followup. MMODL / IJN: [id number] /
[2020-10-19] MEDS: SODIUM CHLORIDE 0.9% 1,000 ML IV SCH (02:31)
[2020-10-19] MEDS: ACETAMINOPHEN TAB 325 MG TAB PO SCH ×2 (05:06→13:25)
[2020-10-19] MEDS: LEVOTHYROXINE 50 MCG TAB PO SCH (05:06)
[2020-10-19 05:21] VITALS: RESP 18
[2020-10-19 07:15] LABS: Basophils % (A) 0 %; Eosinophils # (A) 0.6 k/uL (0-0.7); Eosinophils % (A) 7 %; HCT 25.2 % (34.0-46.0); HGB 7.7 gm/dL (11.4-16.0); Hypochromasia Slight; Lymphocytes # (A) 1.6 k/uL (1.0-4.8); Lymphocytes % (A) 18 %; MCH 30.3 pg (25.0-35.0); MCHC 30.4 g/dL (31.0-37.0); MCV 99.6 fL (80.0-100.0); Macrocytosis Slight; Mean Platelet Volume 8.9; Monocytes # (A) 0.6 k/uL (0-1.0); Monocytes % (A) 6 %; Neutrophils # (A) 5.8 k/uL (1.3-7.7); Neutrophils % (A) 65 %; Platelet Count 333 k/uL (150-450); RBC 2.53 m/uL (3.80-5.40); RDW 15.3 % (11.5-15.5); WBC 8.9 k/uL (3.8-10.6)
[2020-10-19] MEDS: BUDESONIDE 0.5 MG/2 ML NEBU INHALATION SCH (07:26)
[2020-10-19] MEDS: IPRATROPIUM-ALBUTEROL 3 ML NEB INHALATION SCH ×3 (07:26→16:07)
[2020-10-19] MEDS: allopurinoL 100 MG TAB PO SCH (08:03)
[2020-10-19] MEDS: levETIRAcetam 500 MG TAB PO SCH (08:03)
[2020-10-19] MEDS: SERTRALINE 100 MG TAB PO SCH (08:03)
[2020-10-19] MEDS: PANTOPRAZOLE 40 MG TABLET PO SCH (08:03)
[2020-10-19] MEDS: METOPROLOL TARTRATE 12.5 MG TAB PO SCH (08:03)
[2020-10-19] MEDS: MAGNESIUM OXIDE 400 MG TAB PO SCH ×2 (08:04→13:25)
[2020-10-19] MEDS: CARBIDOPA-LEVODOPA 25-100 MG 1 EACH TAB PO SCH (08:05)
[2020-10-19] MEDS: amLODIPine 10 MG TAB PO SCH (08:09)
[2020-10-19] MEDS: FOLIC ACID 1 MG TAB PO SCH (08:10)
[2020-10-19] MEDS: HYDROcodone/APAP 5-325MG 1 EACH TAB PO PRN (08:10)
[2020-10-19] MEDS: CYANOCOBALAMIN 500 MCG TAB PO SCH (08:10)
[2020-10-19] MEDS: ASPIRIN 81 MG PO SCH (08:10)
[2020-10-19] MEDS: HEPARIN SODIUM,PORCINE/PF 5,000 UNIT/0.5 ML SYRINGE SQ SCH (08:13)
[2020-10-19] MEDS: LACTULOSE 20 GM/30 ML CUP PO SCH (09:00)
[2020-10-19 11:38] LABS: African American GFR (CKD) 96.3 (60.0-200.0); Anion Gap 6.2 mmol/L (4.00-12.00); BUN/Creat Ratio 11.67 Ratio (12.00-20.00); Calcium 8.6 mg/dL (8.7-10.3); Carbon Dioxide 24.8 mmol/L (21.6-31.8); Non-African American GFR(CKD) 83.1 (60.0-200.0); Potassium 3.9 mmol/L (3.5-5.5)
[2020-10-19 13:15] VITALS: BP 174/70; PULSE 81; TEMP 97.9
--- NOTE | 2020-10-19 13:57 | P.DS ---
Providers Date of admission: 10/13/20 15:25 Expected date of discharge: 10/19/20 Attending physician: Thiago Dexter Consults: 10/13/20 16:49 Consult Physician Routine Consulting Provider: Juanito Glover Consult Reason/Comments: Parkinsons Do you want consulting provider notified?: Yes 10/15/20 15:42 Consult Physician Routine Consulting Provider: Mahad Mix Consult Reason/Comments: UTI showing gram-negative with history of ESBL Do you want consulting provider notified?: Yes Primary care physician: Miguel Newton Hospital Course: Final diagnosis -Acute metabolic encephalopathy from acute renal failure which is again secondary to dehydration -Acute urinary tract infection, with sepsis with Proteus mirabilis, present on admission -Change in mental status, acute metabolic encephalopathy, possibly secondary to sepsis -History of chronic respiratory failure and O2 dependent in the outpatient setting with 3 L via nasal cannula -Worsening parkinsonian symptoms tremor and generalized weakness -Gait dysfunction -Mild hypovolemic hyponatremia, improved -Leukocytosis due to assessment #1 -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 as she is a resident there. Patient will follow-up with Dr. Newton upon discharge. Patient will continue with a short course of oral antibiotics in the form of Ceftin 500 mg twice daily for the next 7 days and then may discontinue. Total time taken is greater than 35 minutes. Hospital course This is an 85-year-old female who was recently admitted with acute urinary tract infection with sepsis with Proteus mirabilis along with multiple electrolyte abnormalities and was being closely monitored. Infectious disease was following. Patient's urine cultures finalized showing Proteus mirabilis and responded well with IV ceftriaxone and will continue with oral Ceftin 500 mg twice daily for the next 7 days and then may discontinue. Prescriptions also provided for recommended repeat labs in the outpatient setting to continue to monitor hemoglobin along with kidney functions and electrolytes. Patient came in with acute kidney injury and dehydration and was treated with gentle IV hydration and kidney functions improved significantly. Most current creatinine is 0.6 with a potassium of 3.9 and sodium is 138. Hemoglobin today is 7.7 with a history of chronic anemia. Currently no reports of chest pain, shortness of breath, or palpitations. Patient is afebrile. No reports of nausea or vomiting and patient is tolerating diet. Patient will be discharged to [facility]. Guarded prognosis. On exam vital signs are stable. Cardio S1, S2 are muffled. Respiratory shows diminished breath sounds at the bases with a few scattered rhonchi noted. Abdomen is soft and nontender. Nervous system shows mild diffuse weakness. Please refer to medication reconciliation sheet for a list of medications. Patient Condition at Discharge: Stable Plan - Discharge Summary Discharge Rx Participant: No New Discharge Prescriptions: New Cefuroxime Axetil [Ceftin] 500 mg PO BID 7 Days #14 tab amLODIPine [Norvasc] 10 mg PO DAILY tab Ferrous Sulfate [Feosol] 325 mg PO DAILY 30 Days #30 tab Mag Hydrox/Al Hydrox/Simeth [Maalox] 30 ml PO Q4HR PRN ml PRN Reason: Gi Upset QUEtiapine [SEROquel] 25 mg PO HS PRN tab PRN Reason: Agitation Carbidopa-Levodopa 25-100 mg [Sinemet 25-100 mg] 1 each PO TID tab Continue Melatonin 3 mg PO HS@2000 Sertraline [Zoloft] 100 mg PO DAILY@0700 Aspirin 81 mg PO DAILY Levothyroxine Sodium [Synthroid] 50 mcg PO DAILY Lactulose 20 gm PO BID rOPINIRole HCL [Requip] 0.5 mg PO TID@0700,1300,1900 Metoprolol Tartrate [Lopressor] 12.5 mg PO BID@0700,1600 Pantoprazole Sodium [Protonix] 40 mg PO DAILY@0700 Magnesium Oxide [Mag-Ox] 400 mg PO TID@0700,1300,1900 Primidone [Mysoline] 25 mg PO HS Acetaminophen Tab [Tylenol] 650 mg PO TID@0500,1300,1900 Baclofen [Lioresal] 10 mg PO TID PRN PRN Reason: Mild Spasms levETIRAcetam [Keppra] 500 mg PO BID@0700,1600 Budesonide [Pulmicort] 0.5 mg INHALATION RT-BID ml Ipratropium-Albuterol Nebulize [Duoneb 0.5 mg-3 mg/3 ml Soln] 3 ml INHALATION RT-QID Cyanocobalamin [Vitamin B-12] 500 mcg PO DAILY Folic Acid 0.4 mg PO DAILY allopurinoL [Zyloprim] 200 mg PO DAILY@0700 HYDROcodone/APAP 5-325MG [[place] 5-325] 1 tab PO Q8H PRN #10 tab PRN Reason: Pain traMADol HCL 50 mg PO Q6H #6 tab Discontinued Carbidopa/Levodopa [Sinemet 25-100 mg Tablet] 1 tab PO BID Discharge Medication List Aspirin 81 mg PO DAILY 09/18/18 [History] Levothyroxine Sodium [Synthroid] 50 mcg PO DAILY 09/18/18 [History] Melatonin 3 mg PO HS@199909/18/18 [History] Sertraline [Zoloft] 100 mg PO DAILY@0700 09/18/18 [History] Lactulose 20 gm PO BID 06/08/19 [History] Metoprolol Tartrate [Lopressor] 12.5 mg PO BID@0700,1600 01/12/20 [History] rOPINIRole HCL [Requip] 0.5 mg PO TID@0700,1300,1900 01/12/20 [History] Pantoprazole Sodium [Protonix] 40 mg PO DAILY@0700 08/29/20 [History] levETIRAcetam [Keppra] 500 mg PO BID@0700,1600 08/29/20 [History] Budesonide [Pulmicort] 0.5 mg INHALATION RT-BID ml 09/07/20 [Rx] Ipratropium-Albuterol Nebulize [Duoneb 0.5 mg-3 mg/3 ml Soln] 3 ml INHALATION RT-QID 10/05/20 [History] Magnesium Oxide [Mag-Ox] 400 mg PO TID@0700,1300,1900 10/05/20 [History] Acetaminophen Tab [Tylenol] 650 mg PO TID@0500,1300,1900 10/13/20 [History] Baclofen [Lioresal] 10 mg PO TID PRN 10/13/20 [History] Cyanocobalamin [Vitamin B-12] 500 mcg PO DAILY 10/13/20 [History] Folic Acid 0.4 mg PO DAILY 10/13/20 [History] Primidone [Mysoline] 25 mg PO HS 10/13/20 [History] allopurinoL [Zyloprim] 200 mg PO DAILY@0700 10/13/20 [History] Carbidopa-Levodopa 25-100 mg [Sinemet 25-100 mg] 1 each PO TID tab 10/19/20 [Rx] Cefuroxime Axetil [Ceftin] 500 mg PO BID 7 Days #14 tab 10/19/20 [Rx] Ferrous Sulfate [Feosol] 325 mg PO DAILY 30 Days #30 tab 10/19/20 [Rx] HYDROcodone/APAP 5-325MG [[place] 5-325] 1 tab PO Q8H PRN #10 tab 10/19/20 [Rx] Mag Hydrox/Al Hydrox/Simeth [Maalox] 30 ml PO Q4HR PRN ml 10/19/20 [Rx] QUEtiapine [SEROquel] 25 mg PO HS PRN tab 10/19/20 [Rx] amLODIPine [Norvasc] 10 mg PO DAILY tab 10/19/20 [Rx] traMADol HCL 50 mg PO Q6H #6 tab 10/19/20 [Rx] Follow up Appointment(s)/Referral(s): Miguel Newton MD [Primary Care Provider] - 1-2 days Ambulatory/Diagnostic Orders: Complete Blood Count w/diff [LAB.AMB] Time Frame: 3 Days, Location: None Selected Activity/Diet/Wound Care/Special Instructions: She is going to [facility] as tolerated Continue current diet Follow-up with primary care provider upon discharge Repeat labs in 2-3 days to monitor CBC and BMP Continue with antibiotics for 7 days and then may discontinue follow up with infectious disease outpatient Discharge Disposition: TRANSFER TO SNF/F
[2020-10-19] MEDS: traMADol 50 MG TAB PO PRN (14:41)
[2020-10-19] MEDS: SODIUM FERRIC GLUCONAT-SUCROSE 125 MG in SODIUM CHLORIDE 0.9% 100 ML IVPB SCH (14:43)
== END 2020-10-19 16:21 | DRG 871 ==
LOC: EC 11:25 → 4SSUR 15:25 → 5NMEDONC 10-14 01:43
PROVIDERS: ADMIT Internal Medicine; ATTEND Internal Medicine
DX: A41.59 Other Gram-negative sepsis (principal); G92 Toxic encephalopathy; N17.9 Acute kidney failure, unspecified; N39.0 Urinary tract infection, site not specified; E87.1 Hypo-osmolality and hyponatremia; I13.0 Hypertensive heart and chronic kidney disease with heart failure and stage 1 through stage 4 chronic kidney disease, or unspecified chronic kidney disease; J96.10 Chronic respiratory failure, unspecified whether with hypoxia or hypercapnia; J98.11 Atelectasis; F02.80 Dementia in other diseases classified elsewhere, unspecified severity, without behavioral disturbance, psychotic disturbance, mood disturbance, and anxiety; G20 Parkinson's disease; B96.4 Proteus (mirabilis) (morganii) as the cause of diseases classified elsewhere; Z99.81 Dependence on supplemental oxygen; R65.20 Severe sepsis without septic shock; K21.9 Gastro-esophageal reflux disease without esophagitis; N18.9 Chronic kidney disease, unspecified; Z79.82 Long term (current) use of aspirin; Z79.890 Hormone replacement therapy; Z79.899 Other long term (current) drug therapy; Z86.19 Personal history of other infectious and parasitic diseases; E86.0 Dehydration; F01.50 Vascular dementia, unspecified severity, without behavioral disturbance, psychotic disturbance, mood disturbance, and anxiety; I50.9 Heart failure, unspecified; I48.91 Unspecified atrial fibrillation; Z86.73 Personal history of transient ischemic attack (TIA), and cerebral infarction without residual deficits; G89.29 Other chronic pain; D64.9 Anemia, unspecified; E05.90 Thyrotoxicosis, unspecified without thyrotoxic crisis or storm; Z20.822 Contact with and (suspected) exposure to COVID-19
CPT/HCPCS: 36415; 71046; 80048; 80053; 81001; 82728; 83540; 83550; 83735; 85025; 85027; 87077; 87086; 87186; 87635; 93005; 94640; 94760; 96361; 96374; 99285

== ENCOUNTER 2020-12-08 14:13 | Inpatient (IN) | payer MEDICARE, OTHER ==
--- NOTE | 2020-12-08 14:30 | ED ---
General Adult HPI - General Chief complaint: Altered Mental Status Stated complaint: altered mental status Time Seen by Provider: 12/08/20 14:19 Source: patient, EMS, RN notes reviewed Mode of arrival: EMS Limitations: altered mental status - History of Present Illness Initial comments: Patient is a pleasant 85-year-old female presenting to the emergency Department with concerns for change in mental status. Onset is unclear. Patient had reported abnormal white blood cell count and potassium. Patient reportedly has history of similar symptoms previously, unclear why. Patient is a very poor historian and offers no significant history. - Related Data Home Medications Medication Instructions Recorded Confirmed Aspirin 81 mg PO HS 09/18/18 12/08/20 Levothyroxine Sodium [Synthroid] 50 mcg PO HS 09/18/18 12/08/20 Melatonin 3 mg PO HS 09/18/18 12/08/20 Sertraline [Zoloft] 100 mg PO HS 09/18/18 12/08/20 Lactulose 20 gm PO BID 06/08/19 12/08/20 Metoprolol Tartrate [Lopressor] 12.5 mg PO BID 01/12/20 12/08/20 rOPINIRole HCL [Requip] 0.5 mg PO TID@0700,1300,1900 01/12/20 12/08/20 Pantoprazole Sodium [Protonix] 40 mg PO DAILY 08/29/20 12/08/20 levETIRAcetam [Keppra] 500 mg PO BID 08/29/20 12/08/20 Ipratropium-Albuterol Nebulize 3 ml INHALATION RT-QID PRN 10/05/20 12/08/20 [Duoneb 0.5 mg-3 mg/3 ml Soln] Baclofen [Lioresal] 10 mg PO TID PRN 10/13/20 12/08/20 Cyanocobalamin [Vitamin B-12] 500 mcg PO HS 10/13/20 12/08/20 Folic Acid 0.4 mg PO HS 10/13/20 12/08/20 Primidone [Mysoline] 25 mg PO HS 10/13/20 12/08/20 allopurinoL [Zyloprim] 200 mg PO DAILY 10/13/20 12/08/20 Acetaminophen [Tylenol Arthritis] 650 mg PO TID@0500,1300,2100 12/08/20 12/08/20 Carbidopa/Levodopa [Carbidopa-Levo 1 tab PO TID@0700,1300,1900 12/08/20 12/08/20 ER 25-100 Tab] Healthshake 1 dose PO BID 12/08/20 12/08/20 Mag Hydrox/Aluminum Hyd/Simeth 30 ml PO Q4H PRN 12/08/20 12/08/20 [Mylanta Maximum Strength Liq] Sertraline [Zoloft] 25 mg PO HS 12/08/20 12/08/20 Simethicone 80 mg PO TID@0700,1100,1700 12/08/20 12/08/20 Sodium Chloride [Hinds] 1 spray EA NOSTRIL 12/08/20 12/08/20 TID@0700,1300,1900 Previous Rx's Medication Instructions Recorded Budesonide [Pulmicort] 0.5 mg INHALATION RT-BID ml 09/07/20 Ferrous Sulfate [Feosol] 325 mg PO DAILY 30 Days #30 tab 10/19/20 HYDROcodone/APAP 5-325MG [[place] 1 tab PO Q8H PRN #10 tab 10/19/20 5-325] amLODIPine [Norvasc] 10 mg PO DAILY tab 10/19/20 traMADol HCL 50 mg PO Q6H #6 tab 10/19/20 Allergies Allergy/AdvReac Type Severity Reaction Status Date / Time amoxicillin [From Augmentin] Allergy Unknown Verified 12/08/20 16:03 clavulanic acid Allergy Unknown Verified 12/08/20 16:03 [From Augmentin] codeine Allergy Unknown Verified 12/08/20 16:03 Review of Systems ROS Statement: Those systems with pertinent positive or pertinent negative responses have been documented in the HPI. ROS Other: All systems not noted in ROS Statement are negative. Limitations: ROS unobtainable due to patients medical condition Past Medical History Past Medical History: Unable to Obtain, Atrial Fibrillation, Heart Failure, CVA/TIA, Dementia, GERD/Reflux, Hypertension, Memory Impairment, Musculoskeletal Disorder, Neurologic Disorder, Osteoarthritis (OA), Pneumonia, Respiratory Disorder, Seizure Disorder, Thyroid Disorder Additional Past Medical History / Comment(s): Pt recently admitted to [facility] on 10/05/20 with loss of consciousness, acute renal failure and generalized deconditioning. Other Hx: O2 at 3L/NC ATC, R side pleural effusion/pneumonia, CVA wtih R sided weakness, parkinsons with increased tremors, metabolic encephalopathy, frequent UTIs, nephrolithiasis, pyelonep hritis, hydronephrosis, anemia, gout, bowel blockage with ileostomy, last seizure many years ago, chronic low back pain/DDD, RLS, hypothyroid, sacral wound History of Any Multi-Drug Resistant Organisms: ESBL, MRSA Date of last positivie culture/infection: 08/30/20 ESBL/ MRSA 2008 MDRO Source:: ESBL URINE MRSA STOOL Past Surgical History: Unable to Obtain, Back Surgery, Bowel Resection, Cholecystectomy Additional Past Surgical History / Comment(s): Lumbar back surgeries x4, bowel resection/ileostomy, colonoscopy, cysto/bilateral ureteral stents. Past Anesthesia/Blood Transfusion Reactions: No Reported Reaction Past Psychological History: Anxiety Smoking Status: Never smoker Past Alcohol Use History: Unable to Obtain Past Drug Use History: Unable to Obtain - Past Family History Father Family Medical History: Cancer Additional Family Medical History / Comment(s): lung CA Mother Family Medical History: Cancer Additional Family Medical History / Comment(s): Ovarian cancer Sister(s) Additional Family Medical History / Comment(s): emphysema General Exam Limitations: altered mental status General appearance: alert, in no apparent distress Head exam: Present: atraumatic, normocephalic Eye exam: Present: normal appearance, PERRL, EOMI ENT exam: Present: normal oropharynx Neck exam: Present: normal inspection Respiratory exam: Present: normal lung sounds bilaterally Cardiovascular Exam: Present: regular rate, normal rhythm GI/Abdominal exam: Present: soft. Absent: tenderness Extremities exam: Present: normal inspection Neurological exam: Present: alert, altered (Limited verbal response. Not oriented to self.) Expanded Cranial nerves: EOM's Intact: Normal Motor strength exam: RUE: 3, LUE: 3, RLE: 3, LLE: 3 Eye Response: (4) open spontaneously Motor Response: (6) obeys commands Verbal Response: (4) confused conversation Psychiatric exam: Present: flat affect Skin exam: Present: normal color Course Vital Signs 12/08/20 14:15 Temperature 98.0 F Pulse Rate 59 L Respiratory 18 Rate Blood Pressure 111/61 O2 Sat by Pulse 100 Oximetry EKG Findings - EKG Comments: EKG Findings:: Normal sinus rhythm with a rate of 78. WI 168. QRS 80. QT 378. QTC 4:30. Left axis. Low QRS voltage. No acute ST change. Medical Decision Making - Medical Decision Making Patient reevaluated and unchanged. Patient updated. Case discussed with Dr. hoover, covering Dr. Newton, who will admit. - Lab Data Result diagrams: 12/08/20 14:29 12/08/20 14:29 Lab Results 12/08/20 12/08/20 12/08/20 Range/Units 14:29 14:29 14:29 WBC 13.7 H (3.8-10.6) k/uL RBC 2.56 L (3.80-5.40) m/uL Hgb 8.0 L (11.4-16.0) gm/dL Hct 26.2 L (34.0-46.0) % MCV 102.3 H (80.0-100.0) fL MCH 31.1 (25.0-35.0) pg MCHC 30.4 L (31.0-37.0) g/dL RDW 16.9 H (11.5-15.5) % Plt Count 373 (150-450) k/uL MPV 9.3 Neutrophils % 72 % Lymphocytes % 12 % Monocytes % 10 % Eosinophils % 2 % Basophils % 0 % Neutrophils # 9.8 H (1.3-7.7) k/uL Lymphocytes # 1.7 (1.0-4.8) k/uL Monocytes # 1.4 H (0-1.0) k/uL Eosinophils # 0.2 (0-0.7) k/uL Basophils # 0.0 (0-0.2) k/uL Hypochromasia Marked Anisocytosis Slight Macrocytosis Moderate PT 10.9 (9.0-12.0) sec INR 1.0 (<1.2) APTT 27.2 (22.0-30.0) sec Sodium (137-145) mmol/L Potassium (3.5-5.1) mmol/L Chloride (98-107) mmol/L Carbon Dioxide (22-30) mmol/L Anion Gap mmol/L BUN (7-17) mg/dL Creatinine (0.52-1.04) mg/dL Est GFR (CKD-EPI)AfAm (>60 ml/min/1.73 sqM) Est GFR (CKD-EPI)NonAf (>60 ml/min/1.73 sqM) Glucose (74-99) mg/dL POC Glucose (mg/dL) (75-99) mg/dL POC Glu Quarrying Manager ID Calcium (8.4-10.2) mg/dL Total Bilirubin (0.2-1.3) mg/dL AST (14-36) U/L ALT (4-34) U/L Alkaline Phosphatase (38-126) U/L Troponin I (0.000-0.034) ng/mL Total Protein (6.3-8.2) g/dL Albumin (3.5-5.0) g/dL Urine Color Red Urine Appearance Turbid H (Clear) Urine RBC >182 H (0-5) /hpf Urine WBC >182 H (0-5) /hpf Urine WBC Clumps Many H (None) /hpf Ur Squamous Epith Cells 10 H (0-4) /hpf Urine Bacteria Many H (None) /hpf Urine Opiates Screen Detected H (NotDetected) Ur Oxycodone Screen Not Detected (NotDetected) Urine Methadone Screen Not Detected (NotDetected) Ur Propoxyphene Screen Not Detected (NotDetected) Ur Barbiturates Screen Detected H (NotDetected) U Tricyclic Antidepress Not Detected (NotDetected) Ur Phencyclidine Scrn Not Detected (NotDetected) Ur Amphetamines Screen Detected H (NotDetected) U Methamphetamines Scrn Not Detected (NotDetected) U Benzodiazepines Scrn Not Detected (NotDetected) Urine Cocaine Screen Not Detected (NotDetected) U Marijuana (THC) Screen Not Detected (NotDetected) 12/08/20 12/08/20 12/08/20 Range/Units 14:29 14:29 14:32 WBC (3.8-10.6) k/uL RBC (3.80-5.40) m/uL Hgb (11.4-16.0) gm/dL Hct (34.0-46.0) % MCV (80.0-100.0) fL MCH (25.0-35.0) pg MCHC (31.0-37.0) g/dL RDW (11.5-15.5) % Plt Count (150-450) k/uL MPV Neutrophils % % Lymphocytes % % Monocytes % % Eosinophils % % Basophils % % Neutrophils # (1.3-7.7) k/uL Lymphocytes # (1.0-4.8) k/uL Monocytes # (0-1.0) k/uL Eosinophils # (0-0.7) k/uL Basophils # (0-0.2) k/uL Hypochromasia Anisocytosis Macrocytosis PT (9.0-12.0) sec INR (<1.2) APTT (22.0-30.0) sec Sodium 127 L (137-145) mmol/L Potassium 5.8 H (3.5-5.1) mmol/L Chloride 105 (98-107) mmol/L Carbon Dioxide 10 L (22-30) mmol/L Anion Gap 12 mmol/L BUN 59 H (7-17) mg/dL Creatinine 1.59 H (0.52-1.04) mg/dL Est GFR (CKD-EPI)AfAm 34 (>60 ml/min/1.73 sqM) Est GFR (CKD-EPI)NonAf 29 (>60 ml/min/1.73 sqM) Glucose 115 H (74-99) mg/dL POC Glucose (mg/dL) 106 H (75-99) mg/dL POC Glu Quarrying Manager ID Jeri Katz Calcium 9.7 (8.4-10.2) mg/dL Total Bilirubin 0.3 (0.2-1.3) mg/dL AST 20 (14-36) U/L ALT <6 (4-34) U/L Alkaline Phosphatase 200 H (38-126) U/L Troponin I 0.014 (0.000-0.034) ng/mL Total Protein 8.3 H (6.3-8.2) g/dL Albumin 3.5 (3.5-5.0) g/dL Urine Color Urine Appearance (Clear) Urine RBC (0-5) /hpf Urine WBC (0-5) /hpf Urine WBC Clumps (None) /hpf Ur Squamous Epith Cells (0-4) /hpf Urine Bacteria (None) /hpf Urine Opiates Screen (NotDetected) Ur Oxycodone Screen (NotDetected) Urine Methadone Screen (NotDetected) Ur Propoxyphene Screen (NotDetected) Ur Barbiturates Screen (NotDetected) U Tricyclic Antidepress (NotDetected) Ur Phencyclidine Scrn (NotDetected) Ur Amphetamines Screen (NotDetected) U Methamphetamines Scrn (NotDetected) U Benzodiazepines Scrn (NotDetected) Urine Cocaine Screen (NotDetected) U Marijuana (THC) Screen (NotDetected) - Radiology Data Radiology results: report reviewed (Computed tomography scan of the brain shows no acute), image reviewed (Chest x-ray shows no acute process) Disposition Clinical Impression: Altered mental status, DEEPAK (acute kidney injury), UTI (urinary tract infection), Hyponatremia Disposition: ADMITTED IP TO THIS [facility] Condition: Serious Is patient prescribed a controlled substance at d/c from ED?: No Referrals: Miguel Newton MD [Primary Care Provider] - 1-2 days Decision Time: 16:21
[2020-12-08 14:34] LABS: Glucose,Whole Blood 106 mg/dL (75-99)
[2020-12-08 14:49] LABS: ALT <6 U/L (4-34); AST 20 U/L (14-36); African American GFR (CKD) 34 (>60 ml/min/1.73 sqM); Albumin 3.5 g/dL (3.5-5.0); Alkaline Phosphatase 200 U/L (38-126); Anion Gap 12 mmol/L; Blood Urea Nitrogen 59 mg/dL (7-17); Calcium 9.7 mg/dL (8.4-10.2); Carbon Dioxide 10 mmol/L (22-30); Chloride 105 mmol/L (98-107); Glucose 115 mg/dL (74-99); Non-African American GFR(CKD) 29 (>60 ml/min/1.73 sqM); Partial Thromboplastin Time 27.2 sec (22.0-30.0); Potassium 5.8 mmol/L (3.5-5.1); Prothrombin Time 10.9 sec (9.0-12.0); Sodium 127 mmol/L (137-145); Total Bilirubin 0.3 mg/dL (0.2-1.3); Total Protein 8.3 g/dL (6.3-8.2)
[2020-12-08 15:02] LABS: Bacteria,Urine Many /hpf; RBC,Urine >182 /hpf (0-5); Squamous Epithelial Cell,Urine 10 /hpf (0-4); WBC,Urine >182 /hpf (0-5)
[2020-12-08 15:03] LABS: Appearance,Urine Turbid (Clear); Color,Urine Red
[2020-12-08 15:09] LABS: Amphetamine Screen,Urine Detected (NotDetected); Anisocytosis Slight; Barbiturate Screen,Urine Detected (NotDetected); Basophils % (A) 0 %; Benzodiazepines Screen,Urine Not Detected (NotDetected); Cocaine Screen,Urine Not Detected (NotDetected); Eosinophils # (A) 0.2 k/uL (0-0.7); Eosinophils % (A) 2 %; HCT 26.2 % (34.0-46.0); Hypochromasia Marked; Lymphocytes # (A) 1.7 k/uL (1.0-4.8); Lymphocytes % (A) 12 %; MCH 31.1 pg (25.0-35.0); MCHC 30.4 g/dL (31.0-37.0); MCV 102.3 fL (80.0-100.0); Macrocytosis Moderate; Mean Platelet Volume 9.3; Methadone Screen, Urine Not Detected (NotDetected); Monocytes # (A) 1.4 k/uL (0-1.0); Monocytes % (A) 10 %; Neutrophils # (A) 9.8 k/uL (1.3-7.7); Neutrophils % (A) 72 %; Opiate Screen,Urine Detected (NotDetected); Oxycodone Screen, Urine Not Detected (NotDetected); Phencyclidine Screen,Urine Not Detected (NotDetected); Platelet Count 373 k/uL (150-450); RBC 2.56 m/uL (3.80-5.40); RDW 16.9 % (11.5-15.5); Tricyclic Antidepressant,Urine Not Detected (NotDetected); Urn Cannabinoid Scrn Not Detected (NotDetected); WBC 13.7 k/uL (3.8-10.6)
--- NOTE | 2020-12-08 15:16 | CT ---
EXAMINATION TYPE: CT brain wo con DATE OF EXAM: 12/08/2020 COMPARISON: 01/12/2020 HISTORY: Altered mental status CT DLP: 1037.[address] of the brain was performed. The ventricles, basal cisterns and sulci overlying the cerebral convexities demonstrate mild enlargem ent. There is no evidence for intracranial hemorrhage or sulcal effacement. There is decreased attenuation about the periventricular white matter and deep white matter of both c erebral hemispheres, compatible with chronic small vessel ischemia. Differential diagnosis does inclu de demyelination. No mass effects are seen.No midline shift. Osseous calvarium is intact. If symptoms persist consider MRI. IMPRESSION: 1. Age related atrophic and chronic small vessel ischemic change without acute intracranial process s een at this time.
--- NOTE | 2020-12-08 16:05 | XR ---
EXAMINATION TYPE: XR chest 2V DATE OF EXAM: 12/08/2020 COMPARISON: 10/13/2020 HISTORY: Shortness of breath TECHNIQUE: Frontal and lateral views of the chest are obtained. FINDINGS: Scattered senescent parenchymal changes noted. Hyperinflation compatible with COPD. No evidence for infiltrate. No evidence for atelectasis. Heart size is stable. Mediastinal structures are stable and grossly unremarkable. No evidence for hilar prominence. Degenerative changes dorsal spine. IMPRESSION: 1. No evidence for acute pulmonary disease.
[2020-12-08] MEDS ORDERED: SODIUM CHLORIDE 0.9% 500 ML 500 ML IV STA (16:21)
[2020-12-08] MEDS ORDERED: NALOXONE 0.4 MG/ML 1 ML VIAL IV PRN (16:23)
[2020-12-08] MEDS: SODIUM CHLORIDE 0.9% 1,000 ML IV SCH (16:58)
[2020-12-08] MEDS ORDERED: MAG HYDROX/AL HYDROX/SIMETH 30 ML CUP PO PRN (21:43)
[2020-12-08] MEDS: HYDROcodone/APAP 5-325MG 1 EACH TAB PO PRN (22:54)
[2020-12-08] MEDS: MELATONIN 3 MG TABLET PO SCH (22:55)
[2020-12-08] MEDS: HEPARIN SODIUM,PORCINE/PF 5,000 UNIT/0.5 ML SYRINGE SQ SCH (22:55)
[2020-12-08] MEDS: traMADol 50 MG TAB PO SCH (23:01)
[2020-12-09] MEDS: traMADol 50 MG TAB PO SCH ×3 (05:17→16:53)
[2020-12-09] MEDS: SODIUM CHLORIDE 0.9% 1,000 ML IV SCH ×3 (05:17→20:26)
[2020-12-09 06:42] LABS: Anisocytosis Slight; Basophils % (A) 0 %; Eosinophils # (A) 0.2 k/uL (0-0.7); Eosinophils % (A) 2 %; HCT 25.3 % (34.0-46.0); HGB 7.6 gm/dL (11.4-16.0); Hypochromasia Marked; Lymphocytes # (A) 1.3 k/uL (1.0-4.8); Lymphocytes % (A) 11 %; MCH 30.4 pg (25.0-35.0); MCV 101.5 fL (80.0-100.0); Macrocytosis Slight; Mean Platelet Volume 9.1; Monocytes # (A) 1.1 k/uL (0-1.0); Monocytes % (A) 10 %; Neutrophils # (A) 8.7 k/uL (1.3-7.7); Neutrophils % (A) 74 %; Platelet Count 360 k/uL (150-450); RBC 2.49 m/uL (3.80-5.40); RDW 16.5 % (11.5-15.5); WBC 11.8 k/uL (3.8-10.6)
[2020-12-09] MEDS: HEPARIN SODIUM,PORCINE/PF 5,000 UNIT/0.5 ML SYRINGE SQ SCH ×2 (07:32→16:53)
[2020-12-09] MEDS: amLODIPine 10 MG TAB PO SCH (07:33)
[2020-12-09] MEDS: PANTOPRAZOLE 40 MG TABLET PO SCH (07:33)
[2020-12-09] MEDS: levETIRAcetam 500 MG TAB PO SCH ×2 (07:33→20:25)
[2020-12-09] MEDS: METOPROLOL TARTRATE 12.5 MG TAB PO SCH ×2 (07:33→20:24)
[2020-12-09] MEDS: FERROUS SULFATE 325 MG TAB PO SCH (07:33)
[2020-12-09] MEDS: allopurinoL 100 MG TAB PO SCH (07:33)
[2020-12-09] MEDS: CARBIDOPA-LEVODOPA ER 25-100MG 1 EACH TABLET.ER PO SCH ×3 (07:34→20:24)
[2020-12-09] MEDS: SIMETHICONE 80 MG CHEWABLE PO SCH ×3 (07:34→16:53)
[2020-12-09 08:42] LABS: African American GFR (CKD) 51 (>60 ml/min/1.73 sqM); Anion Gap 12 mmol/L; Blood Urea Nitrogen 52 mg/dL (7-17); Carbon Dioxide 10 mmol/L (22-30); Chloride 110 mmol/L (98-107); Glucose 114 mg/dL (74-99); Non-African American GFR(CKD) 45 (>60 ml/min/1.73 sqM); Potassium 5.8 mmol/L (3.5-5.1); Sodium 132 mmol/L (137-145)
[2020-12-09] MEDS: FAMOTIDINE 20 MG TAB PO SCH (09:14)
[2020-12-09 13:39] VITALS: BMI 30.2
--- NOTE | 2020-12-09 13:42 | P.CNNES ---
History of Present Illness Consult date: 12/09/20 Requesting physician: Fritz Rivers Reason for Consult: altered mental status History of Present Illness: This is an 85-year-old woman with medical history of Parkinson's disease, dementia (parkinson's and vascular), reported seizure disorder, chronic kidney insufficiency, ureter tract infection, congestive heart failure, hypertension, restless leg syndrome presented emergency department on 12/08/2020 for altered mental status. Per the ED note it is mentioned the patient had abnormal white blood cells and potassium that was reported to the ED and she had similar symptoms previously. Per the patient nurse her mentation is improving and she feels like she is almost or is at baseline. Of note the patient was seen by our neurology team in the hospital and the last time she was seen was by myself on 10/15/2020 for altered mental status and it was felt was likely due to septic encephalopathy from urinary tract infection as well as component of toxic metabolic encephalopathy in which she had acute kidney insufficiency on chronic kidney insufficiency. Her mentation improved. I recommended that scan as an outpatient for history of Parkinson's disease and recommended EMG with nerve conduction as outpatient for possible lumbosacral radiculopathy versus neuropathy low on the left lower extremity. And she was n otified to follow up with Dr. Garrett her neurologist as outpatient within 2 weeks for further management. Please refer to my note for further details. Workup in the hospital consisted of: On initial presentation the patient's blood pressure is a 111/61, heart rate of 59, respiratory of 18, temperature of 98.0 Fahrenheit and pulse ox of 100% on [address] of nasal [address]. CT of the head is reported as age-related atrophic and chronic small vessel ischemic change without acute intracranial process seen at this time. EKG is reported as normal sinus rhythm. Low voltage QRS. Borderline EKG. Chest x-ray was reported as no evidence of acute pulmonary disease. Her initial white blood cells 13.7 the repeat is 11.8 Initial sodium is 127 which is mild to moderately low in the repeat is 132 so there is improvement. The potassium is 5.8 which is elevated. The creatinine is 1.59 and a repeat is 1.13 and is improvement. Glucose is 115 which is unremarkable. AST of 20 and ALT is less than 6 which is within normal limits. Calcium 7.0 magnesium is 2.0 which is within normal limits. Next Urine analysis is suggestive of ureter tract infection. Urine drug screen is positive for opiates, barbiturates and amphetamines. Review of Systems Review of system: The 12 point system was reviewed and apparent positive and negative per HPI. Past Medical History Past Medical History: Unable to Obtain, Atrial Fibrillation, Heart Failure, CVA/TIA, Dementia, GERD/Reflux, Hypertension, Memory Impairment, Musculoskeletal Disorder, Neurologic Disorder, Osteoarthritis (OA), Pneumonia, Respiratory Disorder, Seizure Disorder, Thyroid Disorder Additional Past Medical History / Comment(s): Pt recently admitted to [facility] on 10/05/20 with loss of consciousness, acute renal failure and generalized deconditioning. Other Hx: O2 at 3L/NC ATC, R side pleural effusion/pneumonia, CVA wtih R sided weakness, parkinsons with increased tremors, metabolic encephalopathy, frequent UTIs, nephrolithiasis, pyelonep hritis, hydronephrosis, anemia, gout, bowel blockage with ileostomy, last seizure many years ago, chronic low back pain/DDD, RLS, hypothyroid, sacral wound History of Any Multi-Drug Resistant Organisms: ESBL, MRSA Date of last positivie culture/infection: 08/30/20 ESBL/ MRSA 2009 MDRO Source:: ESBL URINE MRSA STOOL Past Surgical History: Unable to Obtain, Back Surgery, Bowel Resection, Cholecystectomy Additional Past Surgical History / Comment(s): Lumbar back surgeries x4, bowel resection/ileostomy, colonoscopy, cysto/bilateral ureteral stents. Past Anesthesia/Blood Transfusion Reactions: No Reported Reaction Past Psychological History: Anxiety Additional Psychological History / Comment(s): Pt resides at [facility]. 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 She needs assistance with all ADLs d/t tremors and R sided weakness. Mood disorder. 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 - Past Family History Father Family Medical History: Cancer Additional Family Medical History / Comment(s): lung CA Mother Family Medical History: Cancer Additional Family Medical History / Comment(s): Ovarian cancer Sister(s) Additional Family Medical History / Comment(s): emphysema Medications and Allergies Home Medications Medication Instructions Recorded Confirmed Type Aspirin 81 mg PO HS 09/18/18 12/08/20 History Levothyroxine Sodium [Synthroid] 50 mcg PO HS 09/18/18 12/08/20 History Melatonin 3 mg PO HS 09/18/18 12/08/20 History Sertraline [Zoloft] 100 mg PO HS 09/18/18 12/08/20 History Lactulose 20 gm PO BID 06/08/19 12/08/20 History Metoprolol Tartrate [Lopressor] 12.5 mg PO BID 01/12/20 12/08/20 History rOPINIRole HCL [Requip] 0.5 mg PO TID@0700,1300,1900 01/12/20 12/08/20 History Pantoprazole Sodium [Protonix] 40 mg PO DAILY 08/29/20 12/08/20 History levETIRAcetam [Keppra] 500 mg PO BID 08/29/20 12/08/20 History Budesonide [Pulmicort] 0.5 mg INHALATION RT-BID ml 09/07/20 12/08/20 Rx Ipratropium-Albuterol Nebulize 3 ml INHALATION RT-QID PRN 10/05/20 12/08/20 History [Duoneb 0.5 mg-3 mg/3 ml Soln] Baclofen [Lioresal] 10 mg PO TID PRN 10/13/20 12/08/20 History Cyanocobalamin [Vitamin B-12] 500 mcg PO HS 10/13/20 12/08/20 History Folic Acid 0.4 mg PO HS 10/13/20 12/08/20 History Primidone [Mysoline] 25 mg PO HS 10/13/20 12/08/20 History allopurinoL [Zyloprim] 200 mg PO DAILY 10/13/20 12/08/20 History Ferrous Sulfate [Feosol] 325 mg PO DAILY 30 Days #30 tab 10/19/20 12/08/20 Rx HYDROcodone/APAP 5-325MG [Prentiss 1 tab PO Q8H PRN #10 tab 10/19/20 12/08/20 Rx 5-325] amLODIPine [Norvasc] 10 mg PO DAILY tab 10/19/20 12/08/20 Rx traMADol HCL 50 mg PO Q6H #6 tab 10/19/20 12/08/20 Rx Acetaminophen [Tylenol Arthritis] 650 mg PO TID@0500,1300,2100 12/08/20 12/08/20 History Carbidopa/Levodopa [Carbidopa-Levo 1 tab PO TID@0700,1300,1900 12/08/20 12/08/20 History ER 25-100 Tab] Healthshake 1 dose PO BID 12/08/20 12/08/20 History Mag Hydrox/Aluminum Hyd/Simeth 30 ml PO Q4H PRN 12/08/20 12/08/20 History [Mylanta Maximum Strength Liq] Sertraline [Zoloft] 25 mg PO HS 12/08/20 12/08/20 History Simethicone 80 mg PO TID@0700,1100,1700 12/08/20 12/08/20 History Sodium Chloride [Stickney] 1 spray EA NOSTRIL 12/08/20 12/08/20 History TID@0700,1300,1900 Allergies Allergy/AdvReac Type Severity Reaction Status Date / Time amoxicillin [From Augmentin] Allergy Unknown Verified 12/08/20 16:03 clavulanic acid Allergy Unknown Verified 12/08/20 16:03 [From Augmentin] codeine Allergy Unknown Verified 12/08/20 16:03 Physical Examination - Vital Signs Vital Signs: Vital Signs Temp Pulse Pulse Resp BP BP Pulse Ox 12/09/20 11:40 98.2 F 73 20 122/73 99 12/09/20 05:00 97.8 F 83 16 141/54 96 12/08/20 20:00 96.4 F L 92 20 133/74 100 12/08/20 16:50 75 14 112/62 97 12/08/20 16:40 80 15 112/62 97 12/08/20 16:30 82 15 112/62 94 L 12/08/20 16:20 81 15 112/62 99 12/08/20 16:10 86 22 112/62 100 12/08/20 16:00 81 17 100 12/08/20 15:40 74 14 100 12/08/20 15:30 78 14 100 12/08/20 15:20 75 14 99 12/08/20 15:10 80 18 112/62 98 12/08/20 15:00 107/52 12/08/20 14:50 75 14 107/52 100 12/08/20 14:40 79 20 104/61 100 12/08/20 14:30 81 18 104/61 100 12/08/20 14:20 99 12/08/20 14:15 98.0 F 59 L 18 111/61 100 Intake and Output 12/08/20 12/09/20 12/09/20 22:59 06:59 14:59 Intake Total 1000 Balance 1000 Intake: Intake, IV Titration 1000 Amount Sodium Chloride 0.9% 1, 900 000 ml @ 75 mls/hr IV . [id number] JACINTO Rx#:[id number] cefTRIAXone 1 gm In 100 Sodium Chloride 0.9% 50 ml @ 100 mls/hr IVPB ONCE STA Rx#:[id number] Other: Voiding Method Diaper Incontinent # Voids 1 1 Weight 74.843 kg GENERAL: The patient is lying in bed and is not in acute distress. CHEST: The heart rate is regular rate rhythm. No murmurs to auscultation. No carotid bruit bilaterally. LUNG: Clear to auscultation bilaterally no wheezing noted throughout. Not la bored breathing. ABDOMEN/GI: Bowel sounds present in all 4 quadrants. No tenderness to palpation throughout. NEUROLOGICAL: Higher mental function: The patient is drowsy but is awakeable to voice. Toby ented to self and she stated she is in the hospital. She could not tell me the year or month. She is able to name objects correctly (pen and watch). Patient is following commands. No aphasia and no neglect. Cranial nerves: The pupils are round, equal and reactive to light. Visual mcgarry are difficult to assess because of her cooperation. Has mild to moderat ptosis of left eye. Extraocular movement is intact no nystagmus is noted. Facial sensation is normal to touch throughout. The facial strength is normal throughout. Hearing is moderately decreased bilaterally to hand rub. Tongue is midline and moved [id number] without any difficulty. No dysarthria is noted. Shoulder shrug is normal bilaterally. Motor: The strength is moving bilateral upper and lower extremities above gravi ty (upper > lower). Normal tone and bulk. Cerebellum: Could not assess. Sensation: Sensation is normal to touch throughout. Reflexes (right/left): 2+ throughout upper while 1+ in lowers. Plantars are downgoing bilaterally. Results - Laboratory Findings CBC and BMP: 12/09/20 06:05 12/09/20 05:30 Abnormal Lab Findings: Abnormal Labs 12/08/20 12/08/20 12/08/20 14:29 14:29 14:29 WBC 13.7 H RBC 2.56 L Hgb 8.0 L Hct 26.2 L MCV 102.3 H MCHC 30.4 L RDW 16.9 H Neutrophils # 9.8 H Monocytes # 1.4 H Sodium 127 L Potassium 5.8 H Chloride Carbon Dioxide 10 L BUN 59 H Creatinine 1.59 H Glucose 115 H POC Glucose (mg/dL) Alkaline Phosphatase 200 H Total Protein 8.3 H Urine Appearance Turbid H Urine RBC >182 H Urine WBC >182 H Urine WBC Clumps Many H Ur Squamous Epith Cells 10 H Urine Bacteria Many H Urine Opiates Screen Detected H Ur Barbiturates Screen Detected H Ur Amphetamines Screen Detected H 12/08/20 12/09/20 12/09/20 14:32 05:30 06:05 WBC 11.8 H RBC 2.49 L Hgb 7.6 L Hct 25.3 L MCV 101.5 H MCHC 30.0 L RDW 16.5 H Neutrophils # 8.7 H Monocytes # 1.1 H Sodium 132 L Potassium 5.8 H Chloride 110 H Carbon Dioxide 10 L BUN 52 H Creatinine 1.13 H Glucose 114 H POC Glucose (mg/dL) 106 H Alkaline Phosphatase Total Protein Urine Appearance Urine RBC Urine WBC Urine WBC Clumps Ur Squamous Epith Cells Urine Bacteria Urine Opiates Screen Ur Barbiturates Screen Ur Amphetamines Screen Assessment and Plan Assessment: Altered mental status likely due to toxic metabolic encephalopathy (has acute on chronic kidney insuffiency, electrolyte imbalance) and due to underlying UTI--improving History of Parkinson's disease Dementia possibly due to multifactorial (Parkionson's and vascular) Reported Seizure disorder Acute on chronic kidney insufficiency Acute urinary tract infection with history of recurrent urinary tract infection Congestive heart failure Restless leg syndrome History of hypertension Plan: Patient is restarted on her home dose of sinemet ER 25-100 1 tab tid. She is on Keppra 500mg 1 tab bid (home dose). I highly recommend if patient has not had any seizures for prolonged period of time to be removed off this medication but will defer that to her neurologist as outpatient. Patient is on vitamin B12 500mcg daily, folic acid 0.5 mg daily at bedtime. There is no other additional tests at this time from neurological stand point. We'll defer the rest of medical management to primary team. Next Upon discharge the patient needs to follow-up with her neurologist as outpatient within 1-2 weeks (Dr. Garrett). The plan is discussed with the patient's nurse. Thank you for the consultation. Will follow-up sporadically. Juanito Glover M.D. Neuro-hospitalist Time with Patient: Greater than 30
--- NOTE | 2020-12-09 13:58 | P.HPIM ---
History of Present Illness This is a pleasant 85 years old female with past medical history of atrial fibrillation, heart failure, CVA/TIA with right hemiparesis, Parkinson disease with resting tremor, dementia, GERD, hypertension, memory impairment, osteoart hritis, seizure disorder, hypothyroidism, chronic hypoxic respiratory failure on 3 liters of oxygen per minute, frequent UTI, nephrolithiasis. Hydronephrosis, anemia, gout, bowel obstruction status post ileostomy, degenerative disc disease and chronic low back pain, restless leg syndrome, sacral wound Patient was transferred from [facility] for altered mental status normal labs white cell count and potassium, on admission patient had leukocytosis of 13.7 and hyperkalemia at 5.8. Patient is poor historian When asked about first name she says Bessie and last name she says Bessie again however when I told her it is Morris she confirmed to me that. She no that she came from [facility] but she was disoriented to place. No the year but he was name of the president biting Patient denies any specific complaint to me Vitals show no fever. It looks stable Labs reviewed, leukocytosis of 13.7, and down to 11.8 K, hemoglobin of 7.6. Normal platelet count. BMP showing mild hyponatremia at 127, elevated potassium 5.8, elevated creatinine of 1.59, baseline fluctuates 0.6-1.3. Liver enzymes not elevated. The urinalysis is suspicious for infection with ileal BC more than 182 and looks turbid. Drug screen is positive for opiates, barbiturates and amphetamines EKG showing normal sinus rhythm at 78 with QTC of 4:[address]-T changes Chest x-ray: No acute process CT of the brain: No acute process. Patient was started on ceftriaxone in the emergency room, and normal saline at 75 mL/h Neurology service were consulted from emergency room Review of Systems CONSTITUTIONAL: No fever, no malaise, no fatigue. HEENT: No recent visual problems or hearing problems. Denied any sore throat. CARDIOVASCULAR: No orthopnea, PND, no palpitations, no syncope. PULMONARY: No shortness of breath, no cough, no hemoptysis. GASTROINTESTINAL: No diarrhea, no nausea, no vomiting, no abdominal pain. Normoactive bowel sounds. NEUROLOGICAL: No headaches, no weakness, no numbness. HEMATOLOGICAL: Denies any bleeding or petechiae. GENITOURINARY: Denies any burning micturition, frequency, or urgency. MUSCULOSKELETAL/RHEUMATOLOGICAL: Denies any joint pain, swelling, or any muscle pain. ENDOCRINE: Denies any polyuria or polydipsia. Past Medical History Past Medical History: Unable to Obtain, Atrial Fibrillation, Heart Failure, CVA/TIA, Dementia, GERD/Reflux, Hypertension, Memory Impairment, Musculoskeletal Disorder, Neurologic Disorder, Osteoarthritis (OA), Pneumonia, Respiratory Disorder, Seizure Disorder, Thyroid Disorder Additional Past Medical History / Comment(s): Pt recently admitted to [facility] on 10/05/20 with loss of consciousness, acute renal failure and generalized de conditioning. Other Hx: O2 at 3L/NC ATC, R side pleural effusion/pneumonia, CVA wtih R sided weakness, parkinsons with increased tremors, metabolic encephalopathy, frequent UTIs, nephrolithiasis, pyelonephritis, hydronephrosis, anemia, gout, bowel blockage with ileostomy, last seizure many years ago, chronic low back pain/DDD, RLS, hypothyroid, sacral wound History of Any Multi-Drug Resistant Organisms: ESBL, MRSA Date of last positivie culture/infection: 08/30/20 ESBL/ MRSA 2008 MDRO Source:: ESBL URINE MRSA STOOL Past Surgical History: Unable to Obtain, Back Surgery, Bowel Resection, Ch olecystectomy Additional Past Surgical History / Comment(s): Lumbar back surgeries x4, bowel resection/ileostomy, colonoscopy, cysto/bilateral ureteral stents. Past Anesthesia/Blood Transfusion Reactions: No Reported Reaction Past Psychological History: Anxiety Additional Psychological History / Comment(s): Pt resides at [facility]. 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 She needs assistance with all ADLs d/t tremors and R sided weakness. Mood disorder. 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 - Past Family History Father Family Medical History: Cancer Additional Family Medical History / Comment(s): lung CA Mother Family Medical History: Cancer Additional Family Medical History / Comment(s): Ovarian cancer Sister(s) Additional Family Medical History / Comment(s): emphysema Medications and Allergies Home Medications Medication Instructions Recorded Confirmed Type Aspirin 81 mg PO HS 09/18/18 12/08/20 History Levothyroxine Sodium [Synthroid] 50 mcg PO HS 09/18/18 12/08/20 History Melatonin 3 mg PO HS 09/18/18 12/08/20 History Sertraline [Zoloft] 100 mg PO HS 09/18/18 12/08/20 History Lactulose 20 gm PO BID 06/08/19 12/08/20 History Metoprolol Tartrate [Lopressor] 12.5 mg PO BID 01/12/20 12/08/20 History rOPINIRole HCL [Requip] 0.5 mg PO TID@0700,1300,1900 01/12/20 12/08/20 History Pantoprazole Sodium [Protonix] 40 mg PO DAILY 08/29/20 12/08/20 History levETIRAcetam [Keppra] 500 mg PO BID 08/29/20 12/08/20 History Budesonide [Pulmicort] 0.5 mg INHALATION RT-BID ml 09/07/20 12/08/20 Rx Ipratropium-Albuterol Nebulize 3 ml INHALATION RT-QID PRN 10/05/20 12/08/20 History [Duoneb 0.5 mg-3 mg/3 ml Soln] Baclofen [Lioresal] 10 mg PO TID PRN 10/13/20 12/08/20 History Cyanocobalamin [Vitamin B-12] 500 mcg PO HS 10/13/20 12/08/20 History Folic Acid 0.4 mg PO HS 10/13/20 12/08/20 History Primidone [Mysoline] 25 mg PO HS 10/13/20 12/08/20 History allopurinoL [Zyloprim] 200 mg PO DAILY 10/13/20 12/08/20 History Ferrous Sulfate [Feosol] 325 mg PO DAILY 30 Days #30 tab 10/19/20 12/08/20 Rx HYDROcodone/APAP 5-325MG [[place] 1 tab PO Q8H PRN #10 tab 10/19/20 12/08/20 Rx 5-325] amLODIPine [Norvasc] 10 mg PO DAILY tab 10/19/20 12/08/20 Rx traMADol HCL 50 mg PO Q6H #6 tab 10/19/20 12/08/20 Rx Acetaminophen [Tylenol Arthritis] 650 mg PO TID@0500,1300,2100 12/08/20 12/08/20 History Carbidopa/Levodopa [Carbidopa-Levo 1 tab PO TID@0700,1300,1900 12/08/20 12/08/20 History ER 25-100 Tab] Healthshake 1 dose PO BID 12/08/20 12/08/20 History Mag Hydrox/Aluminum Hyd/Simeth 30 ml PO Q4H PRN 12/08/20 12/08/20 History [Mylanta Maximum Strength Liq] Sertraline [Zoloft] 25 mg PO HS 12/08/20 12/08/20 History Simethicone 80 mg PO TID@0700,1100,1700 12/08/20 12/08/20 History Sodium Chloride [[place]] 1 spray EA NOSTRIL 12/08/20 12/08/20 History TID@0700,1300,1900 Allergies Allergy/AdvReac Type Severity Reaction Status Date / Time amoxicillin [From Augmentin] Allergy Unknown Verified 12/08/20 16:03 clavulanic acid Allergy Unknown Verified 12/08/20 16:03 [From Augmentin] codeine Allergy Unknown Verified 12/08/20 16:03 Physical Exam Vitals: Vital Signs Temp Pulse Pulse Resp BP BP Pulse Ox 12/09/20 05:00 97.8 F 83 16 141/54 96 12/08/20 20:00 96.4 F L 92 20 133/74 100 12/08/20 16:50 75 14 112/62 97 12/08/20 16:40 80 15 112/62 97 12/08/20 16:30 82 15 112/62 94 L 12/08/20 16:20 81 15 112/62 99 12/08/20 16:10 86 22 112/62 100 12/08/20 16:00 81 17 100 12/08/20 15:40 74 14 100 12/08/20 15:30 78 14 100 12/08/20 15:20 75 14 99 12/08/20 15:10 80 18 112/62 98 12/08/20 15:00 107/52 12/08/20 14:50 75 14 107/52 100 12/08/20 14:40 79 20 104/61 100 12/08/20 14:30 81 18 104/61 100 12/08/20 14:20 99 12/08/20 14:15 98.0 F 59 L 18 111/61 100 Intake and Output 12/08/20 12/09/20 12/09/20 22:59 06:59 14:59 Intake Total 1000 Balance 1000 Intake: Intake, IV Titration 1000 Amount Sodium Chloride 0.9% 1, 900 000 ml @ 75 mls/hr IV . [id number] JACINTO Rx#:[id number] cefTRIAXone 1 gm In 100 Sodium Chloride 0.9% 50 ml @ 100 mls/hr IVPB ONCE STA Rx#:[id number] Other: Voiding Method Diaper Incontinent # Voids 1 1 Weight 74.843 kg -GENERAL: The patient is Alert awake oriented 1 to person only partially to place, not in any acute distress. Well developed, well nourished. HEENT: Pupils are round and equally reacting to light. EOMI. No scleral icterus. No conjunctival pallor. Normocephalic, atraumatic. No pharyngeal erythema. No thyromegaly. CARDIOVASCULAR: S1 and S2 present. No murmurs, rubs, or gallops. PULMONARY: Chest is clear to auscultation, no wheezing or crackles. ABDOMEN: Soft, nontender, nondistended, normoactive bowel sounds. No palpable organomegaly. MUSCULOSKELETAL: No joint swelling or deformity. EXTREMITIES: No cyanosis, clubbing, or pedal edema. -NEUROLOGICAL: Gross neurological examination did not reveal any focal deficits. Left-sided hemiparesis especially in the upper extremity which looks chronic SKIN: No rashes. No petechiae Results CBC & Chem 7: 12/09/20 06:05 12/09/20 05:30 Labs: Abnormal Lab Results - Last 24 Hours (Table) 12/08/20 12/08/20 12/08/20 Range/Units 14:29 14:29 14:29 WBC 13.7 H (3.8-10.6) k/uL RBC 2.56 L (3.80-5.40) m/uL Hgb 8.0 L (11.4-16.0) gm/dL Hct 26.2 L (34.0-46.0) % MCV 102.3 H (80.0-100.0) fL MCHC 30.4 L (31.0-37.0) g/dL RDW 16.9 H (11.5-15.5) % Neutrophils # 9.8 H (1.3-7.7) k/uL Monocytes # 1.4 H (0-1.0) k/uL Sodium 127 L (137-145) mmol/L Potassium 5.8 H (3.5-5.1) mmol/L Carbon Dioxide 10 L (22-30) mmol/L BUN 59 H (7-17) mg/dL Creatinine 1.59 H (0.52-1.04) mg/dL Glucose 115 H (74-99) mg/dL POC Glucose (mg/dL) (75-99) mg/dL Alkaline Phosphatase 200 H (38-126) U/L Total Protein 8.3 H (6.3-8.2) g/dL Urine Appearance Turbid H (Clear) Urine RBC >182 H (0-5) /hpf Urine WBC >182 H (0-5) /hpf Urine WBC Clumps Many H (None) /hpf Ur Squamous Epith Cells 10 H (0-4) /hpf Urine Bacteria Many H (None) /hpf Urine Opiates Screen Detected H (NotDetected) Ur Barbiturates Screen Detected H (NotDetected) Ur Amphetamines Screen Detected H (NotDetected) 12/08/20 12/09/20 Range/Units 14:32 06:05 WBC 11.8 H (3.8-10.6) k/uL RBC 2.49 L (3.80-5.40) m/uL Hgb 7.6 L (11.4-16.0) gm/dL Hct 25.3 L (34.0-46.0) % MCV 101.5 H (80.0-100.0) fL MCHC 30.0 L (31.0-37.0) g/dL RDW 16.5 H (11.5-15.5) % Neutrophils # 8.7 H (1.3-7.7) k/uL Monocytes # 1.1 H (0-1.0) k/uL Sodium (137-145) mmol/L Potassium (3.5-5.1) mmol/L Carbon Dioxide (22-30) mmol/L BUN (7-17) mg/dL Creatinine (0.52-1.04) mg/dL Glucose (74-99) mg/dL POC Glucose (mg/dL) 106 H (75-99) mg/dL Alkaline Phosphatase (38-126) U/L Total Protein (6.3-8.2) g/dL Urine Appearance (Clear) Urine RBC (0-5) /hpf Urine WBC (0-5) /hpf Urine WBC Clumps (None) /hpf Ur Squamous Epith Cells (0-4) /hpf Urine Bacteria (None) /hpf Urine Opiates Screen (NotDetected) Ur Barbiturates Screen (NotDetected) Ur Amphetamines Screen (NotDetected) Microbiology - Last 24 Hours (Table) 12/08/20 14:29 Urine Culture - Preliminary Urine,Catheterized Thrombosis Risk Factor Assmnt - Choose All That Apply Any of the Below Risk Factors Present?: Yes Each Factor Represents 1 point: Obesity (BMI >25) Each Risk Factor Represents 3 Points: Age 75 years or older Thrombosis Risk Factor Assessment Total Risk Factor Score: 4 Thrombosis Risk Factor Assessment Level: Moderate Risk Assessment and Plan Assessment: Altered mental status, most likely metabolic encephalopathy, rule out urological causes Acute kidney injury with hyperkalemia Acute urinary tract infection Hypovolemic hyponatremia Chronic kidney disease stage II to 3 atrial fibrillation heart failure History of 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 Continue with ceftriaxone and normal saline, monitor electrolytes and creatinine Follow-up urine culture Follow-up neurology service Labs and medication were reviewed.. Continue same treatment. Continue with symptomatic treatment. Resume home medication. Monitor lytes and vitals. DVT and GI prophylaxis. Further recommendations depends on the clinical course of the patient DVT prophylaxis: Subcutaneous heparin GI Prophylaxis: Pepcid PT/OT: Pending Prognosis is guarded
[2020-12-09] MEDS: LEVOTHYROXINE 50 MCG TAB PO SCH (20:24)
[2020-12-09] MEDS: SERTRALINE 25 MG TAB PO SCH (20:24)
[2020-12-09] MEDS: PRIMIDONE 25 MG TAB PO SCH (20:24)
[2020-12-09] MEDS: CYANOCOBALAMIN 500 MCG TAB PO SCH (20:24)
[2020-12-09] MEDS: FOLIC ACID 1 MG TAB PO SCH (20:25)
[2020-12-09] MEDS: SERTRALINE 100 MG TAB PO SCH (20:25)
[2020-12-09] MEDS: MELATONIN 3 MG TABLET PO SCH (20:26)
[2020-12-09] MEDS: HYDROcodone/APAP 5-325MG 1 EACH TAB PO PRN (20:29)
[2020-12-09] MEDS ORDERED: ASPIRIN 81 MG PO SCH (21:00)
[2020-12-10] MEDS: HEPARIN SODIUM,PORCINE/PF 5,000 UNIT/0.5 ML SYRINGE SQ SCH ×2 (01:24→08:11)
[2020-12-10] MEDS: traMADol 50 MG TAB PO SCH ×4 (01:24→16:59)
[2020-12-10 06:49] LABS: African American GFR (CKD) 64 (>60 ml/min/1.73 sqM); Anion Gap 7 mmol/L; Blood Urea Nitrogen 38 mg/dL (7-17); Calcium 9.8 mg/dL (8.4-10.2); Carbon Dioxide 12 mmol/L (22-30); Chloride 114 mmol/L (98-107); Glucose 102 mg/dL (74-99); Non-African American GFR(CKD) 56 (>60 ml/min/1.73 sqM); Sodium 133 mmol/L (137-145)
[2020-12-10 06:51] LABS: Anisocytosis Slight; Basophils % (A) 0 %; Eosinophils # (A) 0.3 k/uL (0-0.7); Eosinophils % (A) 4 %; HCT 22.9 % (34.0-46.0); Hypochromasia Marked; Lymphocytes # (A) 1.4 k/uL (1.0-4.8); Lymphocytes % (A) 16 %; MCH 30.9 pg (25.0-35.0); MCHC 29.7 g/dL (31.0-37.0); MCV 103.9 fL (80.0-100.0); Macrocytosis Moderate; Mean Platelet Volume 8.7; Monocytes # (A) 0.8 k/uL (0-1.0); Monocytes % (A) 10 %; Neutrophils # (A) 5.6 k/uL (1.3-7.7); Neutrophils % (A) 66 %; Platelet Count 344 k/uL (150-450); RDW 16.9 % (11.5-15.5); WBC 8.4 k/uL (3.8-10.6)
[2020-12-10 06:59] LABS: HGB 6.8 gm/dL (11.4-16.0)
[2020-12-10] MEDS: CARBIDOPA-LEVODOPA ER 25-100MG 1 EACH TABLET.ER PO SCH ×3 (08:07→19:48)
[2020-12-10] MEDS: SIMETHICONE 80 MG CHEWABLE PO SCH ×3 (08:08→16:59)
[2020-12-10] MEDS: METOPROLOL TARTRATE 12.5 MG TAB PO SCH ×2 (08:09→20:51)
[2020-12-10] MEDS: amLODIPine 10 MG TAB PO SCH (08:09)
[2020-12-10] MEDS: FAMOTIDINE 20 MG TAB PO SCH (08:10)
[2020-12-10] MEDS: PANTOPRAZOLE 40 MG TABLET PO SCH (08:10)
[2020-12-10] MEDS: FERROUS SULFATE 325 MG TAB PO SCH (08:10)
[2020-12-10] MEDS: allopurinoL 100 MG TAB PO SCH (08:10)
[2020-12-10] MEDS: levETIRAcetam 500 MG TAB PO SCH ×2 (08:10→20:51)
[2020-12-10] MEDS: SODIUM CHLORIDE 0.9% 1,000 ML IV SCH (11:36)
[2020-12-10] MEDS: PANTOPRAZOLE 40 MG/10 ML VIAL IVP SCH ×2 (11:43→20:52)
--- NOTE | 2020-12-10 15:00 | P.PN ---
Subjective This is a pleasant 85 years old female with past medical history of atrial fibrillation, heart failure, CVA/TIA with right hemiparesis, Parkinson disease with resting tremor, dementia, GERD, hypertension, memory impairment, osteoarthritis, seizure disorder, hypothyroidism, chronic hypoxic respiratory failure on 3 liters of oxygen per minute, frequent UTI, nephrolithiasis. Hydronephrosis, anemia, gout, bowel obstruction status post ileostomy, d egenerative disc disease and chronic low back pain, restless leg syndrome, sacral wound Patient was transferred from [facility] for altered mental status normal labs white cell count and potassium, on admission patient had leukocytosis of 13.7 and hyperkalemia at 5.8. Patient is poor historian When asked about first name she says Bessie and last name she says Bessie again however when I told her it is Arthur she confirmed to me that. She no that she came from [facility] but she was disoriented to place. No the year but he was name of the president biting Patient denies any specific complaint to me Vitals show no fever. It looks stable Labs reviewed, leukocytosis of 13.7, and down to 11.8 K, hemoglobin of 7.6. Normal platelet count. BMP showing mild hyponatremia at 127, elevated potassium 5.8, elevated creatinine of 1.59, baseline fluctuates 0.6-1.3. Liver enzymes not elevated. The urinalysis is suspicious for infection with ileal BC more than 182 and looks turbid. Drug screen is positive for opiates, barbiturates and amphetamines EKG showing normal sinus rhythm at 78 with QTC of 4:[address]-T changes Chest x-ray: No acute process CT of the brain: No acute process. Patient was started on ceftriaxone in the emergency room, and normal saline at 75 mL/h Neurology service were consulted from emergency room 12/10/2020 Patient patient urine culture came back positive ESBL E. coli and Proteus. Blood pressure was on the low side 88/41 this morning. Recheck blood pressure showing SBP of 115. We'll increase to normal saline to 75 mL/h Consults infectious disease team Objective - Vital Signs Vital signs: Vital Signs Temp 96.5 F L 12/10/20 12:09 Pulse 63 12/10/20 12:42 Resp 16 12/10/20 12:42 BP 88/41 12/10/20 12:42 Pulse Ox 100 12/10/20 12:42 Intake & Output 12/09/20 12/10/20 12/10/20 18:59 06:59 18:59 Intake Total 590 310 Output Total 500 Balance 590 -190 Weight 74.843 kg Intake: Oral 590 Blood Product 310 Rc As-1 Unit 310 [id number] Output: Stool 500 Other: Voiding Method Diaper Diaper Diaper Incontinent Incontinent Incontinent # Voids 1 3 1 - Labs CBC & Chem 7: 12/10/20 05:41 12/10/20 05:41 Labs: Abnormal Lab Results - Last 24 Hours (Table) 12/09/20 12/10/20 12/10/20 Range/Units 05:30 05:41 05:41 RBC 2.20 L (3.80-5.40) m/uL Hgb 6.8 L* (11.4-16.0) gm/dL Hct 22.9 L (34.0-46.0) % MCV 103.9 H (80.0-100.0) fL MCHC 29.7 L (31.0-37.0) g/dL RDW 16.9 H (11.5-15.5) % Sodium 133 L (137-145) mmol/L Chloride 114 H (98-107) mmol/L Carbon Dioxide 12 L (22-30) mmol/L BUN 38 H (7-17) mg/dL Glucose 102 H (74-99) mg/dL Procalcitonin 0.48 H (0.02-0.09) ng/mL Crossmatch 12/10/20 Range/Units 08:57 RBC (3.80-5.40) m/uL Hgb (11.4-16.0) gm/dL Hct (34.0-46.0) % MCV (80.0-100.0) fL MCHC (31.0-37.0) g/dL RDW (11.5-15.5) % Sodium (137-145) mmol/L Chloride (98-107) mmol/L Carbon Dioxide (22-30) mmol/L BUN (7-17) mg/dL Glucose (74-99) mg/dL Procalcitonin (0.02-0.09) ng/mL Crossmatch See Detail Microbiology - Last 24 Hours (Table) 12/08/20 14:29 Urine Culture - Final Urine,Catheterized Escherichia coli Proteus mirabilis Assessment and Plan Assessment: Altered mental status, most likely metabolic encephalopathy, rule out neurological causes Acute kidney injury with hyperkalemia, improving Acute urinary tract infection secondary to ESBL Proteus and E. coli. 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 Continue with antibiotic says per ID team and normal saline, monitor electrolytes and cr eatinine Consults infectious disease team Follow-up neurology service Labs and medication were reviewed.. Continue same treatment. Continue with symptomatic treatment. Resume home medication. Monitor lytes and vitals. DVT and GI prophylaxis. Further recommendations depends on the clinical course of the patient DVT prophylaxis: Subcutaneous heparin GI Prophylaxis: Pepcid PT/OT: Pending Prognosis is guarded
--- NOTE | 2020-12-10 16:26 | P.PN ---
Subjective Progress Note Date: 12/10/20 The patient is seen at bedside and she said she is doing the same or slightly better today compared to yesterday. Denies of any new neurological problems. Objective - Vital Signs Vital signs: Vital Signs Temp 96.5 F L 12/10/20 12:09 Pulse 63 12/10/20 12:42 Resp 16 12/10/20 12:42 BP 88/41 12/10/20 12:42 Pulse Ox 100 12/10/20 12:42 Intake & Output 12/09/20 12/10/20 12/10/20 18:59 06:59 18:59 Intake Total 590 310 Output Total 500 Balance 590 -190 Weight 74.843 kg Intake: Oral 590 Blood Product 310 Rc As-1 Unit 310 [id number] Output: Stool 500 Other: Voiding Method Diaper Diaper Diaper Incontinent Incontinent Incontinent # Voids 1 3 1 - Exam GENERAL: The patient is lying in bed and is not in acute distress. NEUROLOGICAL: Higher mental function: The patient is awake oriented to self and place. She said the year is omething. Upon giving her options to month she stated it was not April or January but would not chose November. She is able to name objects correctly (pen and watch). Patient is following commands. No aphasia and no neglect. Cranial nerves: The pupils are round, equal and reactive to light. Visual mcgarry are difficult to assess because of her cooperation. Has mild to moderat ptosis of left eye. Extraocular movement is intact no nystagmus is noted. Facial sensation is normal to touch throughout. The facial strength is normal throughout. Hearing is moderately decreased bilaterally to hand rub. Tongue is midline and moved [id number] without any difficulty. No dysarthria is noted. Shoulder shrug is normal bilaterally. Motor: The strength is moving bilateral upper and lower extremities above gravity (upper > lower). Normal tone and bulk. Cerebellum: Could not assess. Sensation: Sensation is normal to touch throughout. Reflexes (right/left): 2+ throughout upper while 1+ in lowers. Plantars are downgoing bilaterally. - Labs CBC & Chem 7: 12/10/20 05:41 12/10/20 05:41 Labs: Abnormal Lab Results - Last 24 Hours (Table) 12/10/20 12/10/20 12/10/20 Range/Units 05:41 05:41 08:57 RBC 2.20 L (3.80-5.40) m/uL Hgb 6.8 L* (11.4-16.0) gm/dL Hct 22.9 L (34.0-46.0) % MCV 103.9 H (80.0-100.0) fL MCHC 29.7 L (31.0-37.0) g/dL RDW 16.9 H (11.5-15.5) % Sodium 133 L (137-145) mmol/L Chloride 114 H (98-107) mmol/L Carbon Dioxide 12 L (22-30) mmol/L BUN 38 H (7-17) mg/dL Glucose 102 H (74-99) mg/dL Crossmatch See Detail Microbiology - Last 24 Hours (Table) 12/08/20 14:29 Urine Culture - Final Urine,Catheterized Escherichia coli Proteus mirabilis Assessment and Plan Assessment: Altered mental status likely due to toxic metabolic encephalopathy (has acute on chronic kidney insuffiency, electrolyte imbalance) and due to underlying UTI--improving History of Parkinson's disease Dementia possibly due to multifactorial (Parkionson's and vascular) Reported Seizure disorder Acute on chronic kidney insufficiency Acute urinary tract infection with history of recurrent urinary tract infection Congestive heart failure Restless leg syndrome History of hypertension Plan: Patient is restarted on her home dose of sinemet ER 25-100 1 tab tid. She is on Keppra 500mg 1 tab bid (home dose). I highly recommend if patient has not had any seizures for prolonged period of time to be removed off this medication but will defer that to her neurologist as outpatient. Patient is on vitamin B12 500mcg daily, folic acid 0.5 mg daily at bedtime. We'll defer the rest of medical management to primary team. Upon discharge the patient needs to follow-up with her neurologist as outpatient within 1-2 weeks (Dr. Garrett). The plan is discussed with the patient's nurse. There is no other additional tests at this time from neurological stand point. Neurology will sign off. Please reconsult if needed. Juanito Glover M.D. Neuro-hospitalist Time with Patient: Less than 30
[2020-12-10] MEDS: ERTAPENEM 1 GM in SODIUM CHLORIDE 0.9% 50 ML IVPB SCH (16:58)
[2020-12-10 18:04] LABS: Appearance,Urine Turbid (Clear); Bacteria,Urine Many /hpf; Bilirubin,Urine Negative (Negative); Blood,Urine Large (Negative); Color,Urine Light Orange; Glucose,Urine (UA) Negative (Negative); Ketones,Urine Negative (Negative); Leukocyte Esterase,Urine Large (Negative); Mucus,Urine Few /hpf; Nitrite,Urine Positive (Negative); Protein,Urine 2+ (Negative); RBC,Urine >182 /hpf (0-5); Specific Gravity,Urine 1.018 (1.001-1.035); Squamous Epithelial Cell,Urine 3 /hpf (0-4); Urobilinogen,Urine <2.0 mg/dL (<2.0); WBC,Urine >182 /hpf (0-5)
[2020-12-10] MEDS: HYDROcodone/APAP 5-325MG 1 EACH TAB PO PRN (19:48)
--- NOTE | 2020-12-10 20:39 | CONS ---
CONSULTATION DATE OF SERVICE: 12/10/2020 REQUESTING PHYSICIAN: Dr. Hooper. REASON FOR CONSULTATION: Severe anemia. HISTORY OF PRESENT ILLNESS: The patient is an 85-year-old pleasant white female with history of dementia, Parkinson disease, chronic kidney disease, recurrent urinary tract infection, hypertension, congestive heart failure. Apparently was brought in the emergency room because of abnormal labs. She was noted to have leukocytosis and hyperkalemia on her routine outpatient labs, admitted to the hospital for further evaluation. While in the hospital she was noted to have anemia with a hemoglobin of 6.8 g/dL this morning. Yesterday, at the time of admission to the hospital, it was 7.6 g/dL. On review of her records, her baseline hemoglobin has been in the range of 7-9 g/dL and last hemoglobin on October 24 was 7.7 g/dL. The patient is an extremely poor historian and is somewhat confused. She is complaining of pain all over the abdomen. She reports no nausea, vomiting. She has a colostomy in place and stool is brown in color as per the nursing staff. There is no evidence of active GI bleed. The patient has received one unit of PRBC transfusion this morning. On review of her records, there is no endoscopic evaluation in the last few years. PAST MEDICAL HISTORY: Significant for Parkinson's disease, hypertension, dementia, hyperlipidemia, gastroesophageal reflux disease, musculoskeletal disorder, osteoarthritis, hypothyroidism, seizure disorder. PAST SURGICAL HISTORY: Back surgery, some bowel resection, cholecystectomy, bilateral ureteral stents, colostomy in place. MEDICATIONS: Medications at home include aspirin, Synthroid, melatonin, Zoloft, lactulose, Lopressor, Requip, Protonix, Keppra, Pulmicort, Mysoline, Zyloprim, folic acid, vitamin B12, Lioresal, DuoNeb, tramadol, Norvasc, iron sulfate, [place], Mylanta, Zoloft, simethicone, Tylenol Arthritis, carbidopa levodopa. ALLERGIES: AUGMENTIN, CODEINE. SOCIAL HISTORY: Could not be obtained. FAMILY HISTORY: Father had lung cancer. Mother had ovarian cancer. REVIEW OF SYSTEMS: Review of systems could not be obtained as patient is somewhat confused. PHYSICAL EXAMINATION: She appears in no apparent distress. Vital signs are stable. Blood pressure is 88/44, pulse rate 63, temperature 96.5. HEENT examination unremarkable. Conjunctivae pink. Sclerae anicteric. Oral cavity, no lesions. NECK: No JVD or lymph node enlargement. CHEST: Clear to auscultation. HEART: Regular rate and rhythm. ABDOMEN: Soft. There was colostomy in the right lower quadrant area with brown stool noted. Multiple scars on the anterior abdominal wall. EXTREMITIES: No pedal edema. NEUROLOGIC: She is awake but not oriented to name or place. LABS: Labs done at the time of admission the hospital WBC 13.7, and hemoglobin was 8. Today it is 6.8. Platelets normal at 378. BUN 59, creatinine 1.59. Today BUN is 38 and creatinine 0.94. Stool occult blood is negative. Urinalysis showed multiple WBC in clumps. IMPRESSION: 1. Macrocytic anemia with Hemoccult negative stool. Clinically no evidence of active ongoing bleeding, most likely dealing with anemia of chronic disease. Doubt that she has any occult GI bleed but cannot rule out possibility of occult GI blood loss. The patient is status post one unit of PRBC transfusion and repeat hemoglobin is pending. 2. Urinary tract infection on broad-spectrum antibiotics. The patient presently on ceftriaxone. 3. History of Parkinson's disease on Sinemet. 4. History of dementia. 5. History of hypertension and hyperlipidemia. 6. History of colostomy. RECOMMENDATIONS: 1. Obtain iron studies. 2. Monitor CBC daily. 3. Given her overall clinical condition, she is not a candidate for any endoscopic intervention at the present time. 4. We will follow with you closely. 5. Transfuse if needed. Thank you for this consultation. MMODL / IJN: [id number] /
[2020-12-10] MEDS: FOLIC ACID 1 MG TAB PO SCH (20:51)
[2020-12-10] MEDS: SERTRALINE 25 MG TAB PO SCH (20:51)
[2020-12-10] MEDS: SERTRALINE 100 MG TAB PO SCH (20:51)
[2020-12-10] MEDS: MELATONIN 3 MG TABLET PO SCH (20:51)
[2020-12-10] MEDS: PRIMIDONE 25 MG TAB PO SCH (20:51)
[2020-12-10] MEDS: LEVOTHYROXINE 50 MCG TAB PO SCH (20:51)
[2020-12-10] MEDS: CYANOCOBALAMIN 500 MCG TAB PO SCH (20:51)
[2020-12-10 21:09] LABS: % Iron Saturation 21.84 (12.00-45.00)
[2020-12-10 21:23] LABS: Folate, Serum 7.3 ng/mL
[2020-12-10 21:33] LABS: Ferritin 1004.3 ng/mL (10.0-291.0)
[2020-12-11] MEDS: SODIUM CHLORIDE 0.9% 1,000 ML IV SCH ×2 (00:23→11:42)
[2020-12-11] MEDS: traMADol 50 MG TAB PO SCH ×6 (00:23→17:31)
[2020-12-11] MEDS: PANTOPRAZOLE 40 MG/10 ML VIAL IVP SCH ×2 (07:58→20:50)
[2020-12-11] MEDS: FERROUS SULFATE 325 MG TAB PO SCH (07:58)
[2020-12-11] MEDS: levETIRAcetam 500 MG TAB PO SCH ×2 (07:58→20:50)
[2020-12-11] MEDS: allopurinoL 100 MG TAB PO SCH (07:58)
[2020-12-11] MEDS: amLODIPine 10 MG TAB PO SCH (07:59)
[2020-12-11] MEDS: METOPROLOL TARTRATE 12.5 MG TAB PO SCH ×2 (07:59→20:50)
[2020-12-11] MEDS: CARBIDOPA-LEVODOPA ER 25-100MG 1 EACH TABLET.ER PO SCH ×3 (08:00→20:49)
[2020-12-11] MEDS: SIMETHICONE 80 MG CHEWABLE PO SCH ×3 (08:00→17:32)
--- NOTE | 2020-12-11 08:52 | P.CONS ---
History of Present Illness - Reason for Consult Consult date: 12/10/20 ESBL E. coli urinary tract infection Requesting physician: Britton E Sheet - Chief Complaint mental status changes x 1 day - History of Present Illness Patient is 85 female care home resident history of recurrent urine tract infection complicated as patient did have a history of renal stone she was brought to the hospital 2 days ago for evaluation of mental status changes patient was noticed to have abnormal white count and potassium for this reason the patient was brought into the hospital on arrival to the ER the patient was afebrile patient did have a white count of 13.7 BUN and creatinine was mildly elevated liver enzymes are normal patient did have positive UA urine drug screen was positive for barbiturates amphetamines and opiates CT of the brain was negative for any bleed chest x-ray was negative patient was treated with Rocephin with the urine cultures coming positive with ESBL E. coli that has prompted this infectious disease consultation patient evaluation is awake and alert she knows that she in the hospital patient currently denies having any headache no chest pain shortness of breath or cough abdominal pain or diarrhea patient did not have any Arroyo catheter during this admission Review of Systems Positive point has been mentioned in the HPI rest of the systems are negative Past Medical History Past Medical History: Unable to Obtain, Atrial Fibrillation, Heart Failure, CVA/TIA, Dementia, GERD/Reflux, Hypertension, Memory Impairment, Musculoskeletal Disorder, Neurologic Disorder, Osteoarthritis (OA), Pneumonia, Respiratory Disorder, Seizure Disorder, Thyroid Disorder Additional Past Medical History / Comment(s): Pt recently admitted to [facility] on 10/05/20 with loss of consciousness, acute renal failure and generalized deconditioning. Other Hx: O2 at 3L/NC ATC, R side pleural effusion/pneumonia, CVA wtih R sided weakness, parkinsons with increased tremors, metabolic encephalopathy, frequent UTIs, nephrolithiasis, pyeloneph ritis, hydronephrosis, anemia, gout, bowel blockage with ileostomy, last seizure many years ago, chronic low back pain/DDD, RLS, hypothyroid, sacral wound History of Any Multi-Drug Resistant Organisms: ESBL, MRSA Year Discovered:: 08/30/20 ESBL/ MRSA 2008 MDRO Source:: ESBL URINE MRSA STOOL Past Surgical History: Unable to Obtain, Back Surgery, Bowel Resection, Cholecystectomy Additional Past Surgical History / Comment(s): Lumbar back surgeries x4, bowel resection/ileostomy, colonoscopy, cysto/bilateral ureteral stents. Past Anesthesia/Blood Transfusion Reactions: No Reported Reaction Past Psychological History: Anxiety Additional Psychological History / Comment(s): Pt resides at [facility]. 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 She needs assistance with all ADLs d/t tremors and R sided weakness. Mood disorder. 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 - Past Family History Father Family Medical History: Cancer Additional Family Medical History / Comment(s): lung CA Mother Family Medical History: Cancer Additional Family Medical History / Comment(s): Ovarian cancer Sister(s) Additional Family Medical History / Comment(s): emphysema Medications and Allergies Home Medications Medication Instructions Recorded Confirmed Type Aspirin 81 mg PO HS 09/18/18 12/08/20 History Levothyroxine Sodium [Synthroid] 50 mcg PO HS 09/18/18 12/08/20 History Melatonin 3 mg PO HS 09/18/18 12/08/20 History Sertraline [Zoloft] 100 mg PO HS 09/18/18 12/08/20 History Lactulose 20 gm PO BID 06/08/19 12/08/20 History Metoprolol Tartrate [Lopressor] 12.5 mg PO BID 01/12/20 12/08/20 History rOPINIRole HCL [Requip] 0.5 mg PO TID@0700,1300,1900 01/12/20 12/08/20 History Pantoprazole Sodium [Protonix] 40 mg PO DAILY 08/29/20 12/08/20 History levETIRAcetam [Keppra] 500 mg PO BID 08/29/20 12/08/20 History Budesonide [Pulmicort] 0.5 mg INHALATION RT-BID ml 09/07/20 12/08/20 Rx Ipratropium-Albuterol Nebulize 3 ml INHALATION RT-QID PRN 10/05/20 12/08/20 History [Duoneb 0.5 mg-3 mg/3 ml Soln] Baclofen [Lioresal] 10 mg PO TID PRN 10/13/20 12/08/20 History Cyanocobalamin [Vitamin B-12] 500 mcg PO HS 10/13/20 12/08/20 History Folic Acid 0.4 mg PO HS 10/13/20 12/08/20 History Primidone [Mysoline] 25 mg PO HS 10/13/20 12/08/20 History allopurinoL [Zyloprim] 200 mg PO DAILY 10/13/20 12/08/20 History Ferrous Sulfate [Feosol] 325 mg PO DAILY 30 Days #30 tab 10/19/20 12/08/20 Rx HYDROcodone/APAP 5-325MG [[place] 1 tab PO Q8H PRN #10 tab 10/19/20 12/08/20 Rx 5-325] amLODIPine [Norvasc] 10 mg PO DAILY tab 10/19/20 12/08/20 Rx traMADol HCL 50 mg PO Q6H #6 tab 10/19/20 12/08/20 Rx Acetaminophen [Tylenol Arthritis] 650 mg PO TID@0500,1300,2100 12/08/20 12/08/20 History Carbidopa/Levodopa [Carbidopa-Levo 1 tab PO TID@0700,1300,1900 12/08/20 12/08/20 History ER 25-100 Tab] Healthshake 1 dose PO BID 12/08/20 12/08/20 History Mag Hydrox/Aluminum Hyd/Simeth 30 ml PO Q4H PRN 12/08/20 12/08/20 History [Mylanta Maximum Strength Liq] Sertraline [Zoloft] 25 mg PO HS 12/08/20 12/08/20 History Simethicone 80 mg PO TID@0700,1100,1700 12/08/20 12/08/20 History Sodium Chloride [Avery] 1 spray EA NOSTRIL 12/08/20 12/08/20 History TID@0700,1300,1900 Allergies Allergy/AdvReac Type Severity Reaction Status Date / Time amoxicillin [From Augmentin] Allergy Unknown Verified 12/08/20 16:03 clavulanic acid Allergy Unknown Verified 12/08/20 16:03 [From Augmentin] codeine Allergy Unknown Verified 12/08/20 16:03 Physical Exam Vitals: Vital Signs Temp Pulse Pulse Resp BP BP Pulse Ox 12/10/20 12:42 63 16 88/41 100 12/10/20 12:09 96.5 F L 16 105/59 100 12/10/20 11:39 16 94/56 99 12/10/20 11:29 97.5 F L 59 L 16 94/44 100 12/10/20 11:09 97.4 F L 60 20 94/44 100 12/10/20 04:17 98.2 F 75 14 112/68 100 12/09/20 20:22 97.6 F 72 16 122/66 100 12/09/20 20:00 72 16 Intake and Output 12/10/20 12/10/20 12/10/20 06:59 14:59 22:59 Intake Total 590 310 Output Total 500 100 Balance 590 -190 -100 Intake: Oral 590 Blood Product 310 Rc As-1 Unit 310 [id number] Output: Stool 500 100 Other: Voiding Method Diaper Incontinent # Voids 3 1 1 GENERAL DESCRIPTION: Elderly female lying in bed, no distress. No tachypnea or accessory muscle of respiration use. HEENT: Shows Pallor , no scleral icterus. Oral mucous membrane is dry. No pharyngeal erythema or thrush NECK: Trachea central, no thyromegaly. LUNGS: Unlabored breathing. Clear to auscultation anteriorly. No wheeze or crackle. HEART: S1, S2, regular rate and rhythm. No loud murmur ABDOMEN: Soft, no tenderness , guarding or rigidity, no organomegaly EXTREMITIES: No edema of feet. SKIN: No rash, no masses palpable. NEUROLOGICAL: The patient is awake, alert, oriented x2, mood and affect normal. Results CBC & Chem 7: 12/10/20 05:41 12/10/20 05:41 Labs: Abnormal Lab Results - Last 24 Hours (Table) 12/10/20 12/10/20 12/10/20 Range/Units 05:41 05:41 08:57 RBC 2.20 L (3.80-5.40) m/uL Hgb 6.8 L* (11.4-16.0) gm/dL Hct 22.9 L (34.0-46.0) % MCV 103.9 H (80.0-100.0) fL MCHC 29.7 L (31.0-37.0) g/dL RDW 16.9 H (11.5-15.5) % Sodium 133 L (137-145) mmol/L Chloride 114 H (98-107) mmol/L Carbon Dioxide 12 L (22-30) mmol/L BUN 38 H (7-17) mg/dL Glucose 102 H (74-99) mg/dL Crossmatch See Detail Microbiology - Last 24 Hours (Table) 12/08/20 14:29 Urine Culture - Final Urine,Catheterized Escherichia coli Proteus mirabilis Assessment and Plan Assessment: 1-patient presented to hospital with mental status changes which is multifactorial in this patient who did have a positive UA elevated white count and concerning for symptomatic urinary tract infection with a history of infection with resistant bacteria in the past and currently growing ESBL E. coli (1) Infection due to ESBL-producing Escherichia coli Current Visit: Yes Status: Acute Code(s): A49.8 - OTHER BACTERIAL INFECTIONS OF UNSPECIFIED SITE; Z16.12 - EXTENDED SPECTRUM BETA LACTAMASE (ESBL) RESISTANCE SNOMED Code(s): 432566377 (2) UTI (urinary tract infection) Current Visit: Yes Status: Acute Code(s): N39.0 - URINARY TRACT INFECTION, SITE NOT SPECIFIED SNOMED Code(s): 51442611 Plan: 1-we will obtain straight cath urine culture to rule out contamination from the skin alondra 2-discontinue Rocephin 3-start the patient on Invanz 1 g daily 4-check ultrasound of the kidneys to make sure no evidence of any structural abnormality We will follow on clinical condition and cultures to further adjust medication if needed Thank you for this consultation we will follow the patient along with you Time with Patient: Greater than 30
[2020-12-11 10:16] LABS: Anisocytosis Slight; Basophils % (A) 0 %; Eosinophils # (A) 0.3 k/uL (0-0.7); Eosinophils % (A) 4 %; HCT 25.2 % (34.0-46.0); HGB 7.7 gm/dL (11.4-16.0); Hypochromasia Marked; Lymphocytes # (A) 1.2 k/uL (1.0-4.8); Lymphocytes % (A) 14 %; MCH 30.7 pg (25.0-35.0); MCHC 30.5 g/dL (31.0-37.0); MCV 100.5 fL (80.0-100.0); Macrocytosis Slight; Mean Platelet Volume 9.2; Monocytes # (A) 0.9 k/uL (0-1.0); Monocytes % (A) 11 %; Neutrophils # (A) 5.7 k/uL (1.3-7.7); Neutrophils % (A) 68 %; Platelet Count 278 k/uL (150-450); RDW 16.7 % (11.5-15.5); WBC 8.4 k/uL (3.8-10.6)
[2020-12-11 10:35] LABS: African American GFR (CKD) 73 (>60 ml/min/1.73 sqM); Anion Gap 8 mmol/L; Blood Urea Nitrogen 26 mg/dL (7-17); Calcium 9.4 mg/dL (8.4-10.2); Carbon Dioxide 12 mmol/L (22-30); Chloride 113 mmol/L (98-107); Glucose 109 mg/dL (74-99); Magnesium 1.6 mg/dL (1.6-2.3); Non-African American GFR(CKD) 63 (>60 ml/min/1.73 sqM); Potassium 4.2 mmol/L (3.5-5.1); Sodium 133 mmol/L (137-145)
[2020-12-11] MEDS: HYDROcodone/APAP 5-325MG 1 EACH TAB PO PRN (11:41)
[2020-12-11] MEDS: BACLOFEN 10 MG TAB PO PRN (11:42)
[2020-12-11] MEDS ORDERED: Magnesium Replacement Protocol 1 EACH MISC MISCELLANE PRN (11:53)
[2020-12-11] MEDS: MAGNESIUM SULFATE-D5W PMX 1 GM in DEXTROSE/WATER 1 100ML.BAG IVPB SCH ×2 (12:21→13:20)
[2020-12-11] MEDS: ERTAPENEM 1 GM in SODIUM CHLORIDE 0.9% 50 ML IVPB SCH (16:08)
[2020-12-11] MEDS: PRIMIDONE 25 MG TAB PO SCH (20:50)
[2020-12-11] MEDS: CYANOCOBALAMIN 500 MCG TAB PO SCH (20:50)
[2020-12-11] MEDS: FOLIC ACID 1 MG TAB PO SCH (20:50)
[2020-12-11] MEDS: LEVOTHYROXINE 50 MCG TAB PO SCH (20:50)
[2020-12-11] MEDS: MELATONIN 3 MG TABLET PO SCH (20:50)
[2020-12-11] MEDS: SERTRALINE 100 MG TAB PO SCH (20:51)
[2020-12-11] MEDS: SERTRALINE 25 MG TAB PO SCH (20:51)
--- NOTE | 2020-12-11 21:02 | P.PN ---
Subjective This is a pleasant 85 years old female with past medical history of atrial fibrillation, heart failure, CVA/TIA with right hemiparesis, Parkinson disease with resting tremor, dementia, GERD, hypertension, memory impairment, osteoarthritis, seizure disorder, hypothyroidism, chronic hypoxic respiratory failure on 3 liters of oxygen per minute, frequent UTI, nephrolithiasis. Hydronephrosis, anemia, gout, bowel obstruction status post ileostomy, d egenerative disc disease and chronic low back pain, restless leg syndrome, sacral wound Patient was transferred from [facility] for altered mental status normal labs white cell count and potassium, on admission patient had leukocytosis of 13.7 and hyperkalemia at 5.8. Patient is poor historian When asked about first name she says Bessie and last name she says Bessie again however when I told her it is Arthur she confirmed to me that. She no that she came from on license of [facility] but she was disoriented to place. No the year but he was name of the president biting Patient denies any specific complaint to me Vitals show no fever. It looks stable Labs reviewed, leukocytosis of 13.7, and down to 11.8 K, hemoglobin of 7.6. Normal platelet count. BMP showing mild hyponatremia at 127, elevated potassium 5.8, elevated creatinine of 1.59, baseline fluctuates 0.6-1.3. Liver enzymes not elevated. The urinalysis is suspicious for infection with ileal BC more than 182 and looks turbid. Drug screen is positive for opiates, barbiturates and amphetamines EKG showing normal sinus rhythm at 78 with QTC of 4:[address]-T changes Chest x-ray: No acute process CT of the brain: No acute process. Patient was started on ceftriaxone in the emergency room, and normal saline at 75 mL/h Neurology service were consulted from emergency room 12/10/2020 Patient patient urine culture came back positive ESBL E. coli and Proteus. Blood pressure was on the low side 88/41 this morning. Recheck blood pressure showing SBP of 115. We'll increase to normal saline to 75 mL/h Consults infectious disease team 12/11/2020 Patient looks improving, her confusion is better, she is more oriented to the surrounding, more appropriate and follow commands She is hemodynamically stable WBC is back to normal at 8.4, creatinine normal at 0.8, hemoglobin improved to 7.7 with blood transfusion Iron Study showed anemia of chronic disease. Lipase is back close to normal at 72. Liver enzymes not elevated. Objective - Vital Signs Vital signs: Vital Signs Temp 98.4 F 12/11/20 04:43 Pulse 72 12/11/20 04:43 Resp 16 12/11/20 04:43 BP 103/58 12/11/20 04:43 Pulse Ox 93 L 12/11/20 04:43 Intake & Output 12/10/20 12/11/20 12/11/20 18:59 06:59 18:59 Intake Total 310 590 Output Total 600 200 Balance -290 390 Intake: Oral 590 Blood Product 310 Rc As-1 Unit 310 [id number] Output: Stool 600 200 Other: Voiding Method Diaper Diaper Diaper Incontinent Incontinent Incontinent # Voids 1 2 - Exam -GENERAL: The patient confusion is improving, not in any acute distress. Well developed, well nourished. HEENT: Pupils are round and equally reacting to light. EOMI. No scleral icterus. No conjunctival pallor. Normocephalic, atraumatic. No pharyngeal erythema. No thyromegaly. CARDIOVASCULAR: S1 and S2 present. No murmurs, rubs, or gallops. PULMONARY: Chest is clear to auscultation, no wheezing or crackles. ABDOMEN: Soft, nontender, nondistended, normoactive bowel sounds. No palpable organomegaly. MUSCULOSKELETAL: No joint swelling or deformity. EXTREMITIES: No cyanosis, clubbing, or pedal edema. NEUROLOGICAL: Gross neurological examination did not reveal any focal deficits. SKIN: No rashes. no petechiae. - Labs CBC & Chem 7: 12/11/20 09:41 12/11/20 09:41 Labs: Abnormal Lab Results - Last 24 Hours (Table) 12/10/20 12/10/20 12/11/20 Range/Units 05:41 17:45 09:41 RBC 2.50 L (3.80-5.40) m/uL Hgb 7.7 L (11.4-16.0) gm/dL Hct 25.2 L (34.0-46.0) % MCV 100.5 H (80.0-100.0) fL MCHC 30.5 L (31.0-37.0) g/dL RDW 16.7 H (11.5-15.5) % Sodium (137-145) mmol/L Chloride (98-107) mmol/L Carbon Dioxide (22-30) mmol/L BUN (7-17) mg/dL Glucose (74-99) mg/dL Iron 45 L (50-170) ug/dL TIBC 206 L (228-460) ug/dL Ferritin 1004.3 H (10.0-291.0) ng/mL Urine Appearance Turbid H (Clear) Urine Protein 2+ H (Negative) Urine Blood Large H (Negative) Urine Nitrite Positive H (Negative) Ur Leukocyte Esterase Large H (Negative) Urine RBC >182 H (0-5) /hpf Urine WBC >182 H (0-5) /hpf Urine WBC Clumps Many H (None) /hpf Urine Bacteria Many H (None) /hpf Urine Mucus Few H (None) /hpf 12/11/20 Range/Units 09:41 RBC (3.80-5.40) m/uL Hgb (11.4-16.0) gm/dL Hct (34.0-46.0) % MCV (80.0-100.0) fL MCHC (31.0-37.0) g/dL RDW (11.5-15.5) % Sodium 133 L (137-145) mmol/L Chloride 113 H (98-107) mmol/L Carbon Dioxide 12 L (22-30) mmol/L BUN 26 H (7-17) mg/dL Glucose 109 H (74-99) mg/dL Iron (50-170) ug/dL TIBC (228-460) ug/dL Ferritin (10.0-291.0) ng/mL Urine Appearance (Clear) Urine Protein (Negative) Urine Blood (Negative) Urine Nitrite (Negative) Ur Leukocyte Esterase (Negative) Urine RBC (0-5) /hpf Urine WBC (0-5) /hpf Urine WBC Clumps (None) /hpf Urine Bacteria (None) /hpf Urine Mucus (None) /hpf Microbiology - Last 24 Hours (Table) 12/10/20 17:40 Urine Culture - Preliminary Urine,Catheterized 12/08/20 14:29 Urine Culture - Final Urine,Catheterized Escherichia coli Proteus mirabilis Assessment and Plan Assessment: Altered mental status, most likely metabolic encephalopathy, rule out neurological causes Acute kidney injury with hyperkalemia, improving Acute urinary tract infection secondary to ESBL Proteus and E. coli. 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 Continue with antibiotic says per ID team and normal saline, monitor electrolytes and creatinine Consults infectious disease team Continue with Invanz neurology service signed off Labs and medication were reviewed.. Continue same treatment. Continue with symptomatic treatment. Resume home medication. Monitor lytes and vitals. DVT and GI prophylaxis. Further recommendations depends on the clinical course of the patient DVT prophylaxis: Subcutaneous heparin GI Prophylaxis: Pepcid PT/OT: Pending Prognosis is guarded
--- NOTE | 2020-12-11 21:51 | PN ---
PROGRESS NOTE DATE OF SERVICE: 12/11/2020 REASON FOR FOLLOWUP: ESBL E coli UTI. INTERVAL HISTORY: Patient is afebrile. The patient is breathing comfortably. Denies any chest pain, shortness of breath, cough, abdominal pain or diarrhea. PHYSICAL EXAMINATION: Blood pressure 118/60 with a pulse of 73, temperature 98.7. She is 100% on 2 L nasal cannula. GENERAL DESCRIPTION: Is an elderly female lying in bed in no distress. RESPIRATORY SYSTEM: Unlabored breathing, clear to auscultation anteriorly. HEART: S1, S2. Regular rate and rhythm. ABDOMEN: No tenderness. LABS: Hemoglobin 7.7, white count 8.4, BUN 26, creatinine 0.85. DIAGNOSTIC IMPRESSION AND PLAN: Patient with ESBL E coli urinary tract infection. The patient is clinically responding to Invanz, to continue. Waiting for the ultrasound to be completed and monitor clinical course closely. MMMARIPOSAL / IJN: [id number] /
[2020-12-12] MEDS: traMADol 50 MG TAB PO SCH ×5 (02:35→22:44)
[2020-12-12] MEDS: SODIUM CHLORIDE 0.9% 1,000 ML IV SCH ×2 (04:49→17:49)
[2020-12-12] MEDS: FERROUS SULFATE 325 MG TAB PO SCH (07:59)
[2020-12-12] MEDS: BACLOFEN 10 MG TAB PO PRN (07:59)
[2020-12-12] MEDS: HYDROcodone/APAP 5-325MG 1 EACH TAB PO PRN (08:00)
[2020-12-12] MEDS: allopurinoL 100 MG TAB PO SCH (08:00)
[2020-12-12] MEDS: levETIRAcetam 500 MG TAB PO SCH ×2 (08:00→21:11)
[2020-12-12] MEDS: PANTOPRAZOLE 40 MG/10 ML VIAL IVP SCH (08:01)
[2020-12-12] MEDS: CARBIDOPA-LEVODOPA ER 25-100MG 1 EACH TABLET.ER PO SCH ×3 (08:02→17:48)
[2020-12-12] MEDS: SIMETHICONE 80 MG CHEWABLE PO SCH ×3 (08:03→17:47)
[2020-12-12] MEDS: amLODIPine 10 MG TAB PO SCH (08:03)
[2020-12-12] MEDS: METOPROLOL TARTRATE 12.5 MG TAB PO SCH ×2 (08:04→21:10)
--- NOTE | 2020-12-12 09:05 | US ---
EXAMINATION TYPE: US kidneys/renal and bladder DATE OF EXAM: 12/11/2020 COMPARISON: CT & US CLINICAL HISTORY: recurrent UTI. UTI, H/O renal stones EXAM MEASUREMENTS: Right Kidney: 12.6 x 3.9 x 4.4 cm Left Kidney: 11.8 x 5.8 x 5.2 cm Right Kidney: No evidence of hydro, 2 probable calculi 1)= 1.7 cm 2)= 1.5 cm/ Cyst lateral= 1.4 x 1. 2 x 1.2 cm Left Kidney: Mild hydro, possible multiple calculi mid/medial= 1.2, 1.0, and 0.9 cm in size Bladder: Limited visualization, irregular conrad Bilateral Jets seen: No No masses are identified. The urinary bladder is anechoic. IMPRESSION: 1. Nonobstructing right-sided nephrolithiasis. 2. Mild hydronephrosis left kidney with nephrolithiasis as noted.
--- NOTE | 2020-12-12 09:21 | PN ---
PROGRESS NOTE DATE OF SERVICE: 12/12/2020 INTERVAL HISTORY: Patient is an 85-year-old white female admitted to the hospital with urosepsis and presently on broad-spectrum antibiotics. At time of admission to the hospital she had a hemoglobin of 6.8 and received a unit of PRBC transfusion. Iron studies were done. Serum ferritin was elevated at 1000. Iron was 45, TIBC 206, iron saturations 21%. After a unit of blood transfusion hemoglobin is 7.7 g/dL. She remains on broad- spectrum antibiotics. Overall she is doing better. She denies any rectal bleeding or melena. PHYSICAL EXAMINATION: GENERAL: She appears comfortable. VITAL SIGNS: Stable. Blood pressure 91/41, pulse is 67, temperature 97.3. HEENT: Examination unremarkable. Conjunctivae are pink. Sclerae anicteric. Oral cavity no lesions. NECK: No JVD or lymph node enlargement. CHEST: Clear to auscultation. HEART: Regular rate and rhythm. ABDOMEN: Soft, bowel sounds positive, nontender. Colostomy in place. EXTREMITIES: No pedal edema noted. NEURO: She is awake, oriented to name but not to place. LABS: Urinalysis E coli and Proteus mirabilis following the cultures, WBC 8.4, hemoglobin 7.7. Rest of the labs are within normal limits. IMPRESSION: 1. Urosepsis on broad-spectrum antibiotics. 2. Anemia of chronic disease. Hemoglobin of 6.8, status post one unit of PRBC transfusion. Repeat hemoglobin 7.7. Iron indices not consistent with iron deficiency anemia. Clinically no evidence of active bleeding or occult GI blood loss. Stool occult blood was negative. 3. History of hypertension. 4. History of hyperlipidemia. 5. History of hypothyroidism. RECOMMENDATIONS: 1. Continue with broad-spectrum antibiotics. 2. Monitor CBC daily. 3. Since there is no evidence of iron deficiency anemia, no need for any endoscopy intervention at the present time. Will transfuse her if needed based on the hemoglobin, results. We will sign off at this time. Please call us if needed. Thank you for this consultation. MMODL / IJN: [id number] /
[2020-12-12] MEDS ORDERED: FUROSEMIDE 10 MG/ML 4 ML VIAL IV STA (12:52)
--- NOTE | 2020-12-12 12:53 | P.PN ---
Subjective This is a pleasant 85 years old female with past medical history of atrial fibrillation, heart failure, CVA/TIA with right hemiparesis, Parkinson disease with resting tremor, dementia, GERD, hypertension, memory impairment, osteoarthritis, seizure disorder, hypothyroidism, chronic hypoxic respiratory failure on 3 liters of oxygen per minute, frequent UTI, nephrolithiasis. Hydronephrosis, anemia, gout, bowel obstruction status post ileostomy, d egenerative disc disease and chronic low back pain, restless leg syndrome, sacral wound Patient was transferred from [facility] for altered mental status normal labs white cell count and potassium, on admission patient had leukocytosis of 13.7 and hyperkalemia at 5.8. Patient is poor historian When asked about first name she says Bessie and last name she says Bessie again however when I told her it is Arthur she confirmed to me that. She no that she came from [facility] but she was disoriented to place. No the year but he was name of the president biting Patient denies any specific complaint to me Vitals show no fever. It looks stable Labs reviewed, leukocytosis of 13.7, and down to 11.8 K, hemoglobin of 7.6. Normal platelet count. BMP showing mild hyponatremia at 127, elevated potassium 5.8, elevated creatinine of 1.59, baseline fluctuates 0.6-1.3. Liver enzymes not elevated. The urinalysis is suspicious for infection with ileal BC more than 182 and looks turbid. Drug screen is positive for opiates, barbiturates and amphetamines EKG showing normal sinus rhythm at 78 with QTC of 4:[address]-T changes Chest x-ray: No acute process CT of the brain: No acute process. Patient was started on ceftriaxone in the emergency room, and normal saline at 75 mL/h Neurology service were consulted from emergency room 12/10/2020 Patient patient urine culture came back positive ESBL E. coli and Proteus. Blood pressure was on the low side 88/41 this morning. Recheck blood pressure showing SBP of 115. We'll increase to normal saline to 75 mL/h Consults infectious disease team 12/11/2020 Patient looks improving, her confusion is better, she is more oriented to the surrounding, more appropriate and follow commands She is hemodynamically stable WBC is back to normal at 8.4, creatinine normal at 0.8, hemoglobin improved to 7.7 with blood transfusion Iron Study showed anemia of chronic disease. Lipase is back close to normal at 72. Liver enzymes not elevated. 12/12/2020 Patient confused but is improving gradually. She is hemodynamically stable. We will check labs today She eats 25-100% of her meals She remains on Invanz and normal saline 75 mL/h lower to 40 mL per hour. Will give one-time dose of Lasix Possible discharge in 24-48 hours if she remains stable and improved Objective - Vital Signs Vital signs: Vital Signs Temp 97.3 F L 12/12/20 05:00 Pulse 67 12/12/20 05:00 Resp 16 12/12/20 05:00 BP 91/41 12/12/20 05:00 Pulse Ox 100 12/12/20 05:00 Intake & Output 12/11/20 12/12/20 12/12/20 18:59 06:59 18:59 Intake Total 2800 590 Output Total 100 Balance 2800 490 Intake: Intake, IV Titration 950 Amount Ertapenem 1 gm In Sodium 100 Chloride 0.9% 50 ml @ 100 mls/hr IVPB DAILY@1600 [facility] Rx#:[id number] Magnesium Sulfate-D5w Pmx 200 1 gm In Dextrose/Water 1 100ml.bag @ 100 mls/hr IVPB Q1H [facility] Rx#: [id number] Sodium Chloride 0.9% 1, 650 000 ml @ 75 mls/hr IV . [id number] [facility]AC[facility] Rx#:[id number] Oral 1850 590 Output: Stool 100 Other: Voiding Method Diaper Diaper Diaper Incontinent Incontinent Incontinent # Voids 3 3 1 # Bowel Movements 1 - Exam -GENERAL: The patient confusion is improving, not in any acute distress. Well developed, well nourished. HEENT: Pupils are round and equally reacting to light. EOMI. No scleral icterus. No conjunctival pallor. Normocephalic, atraumatic. No pharyngeal erythema. No thyromegaly. CARDIOVASCULAR: S1 and S2 present. No murmurs, rubs, or gallops. PULMONARY: Chest is clear to auscultation, no wheezing or crackles. ABDOMEN: Soft, nontender, nondistended, normoactive bowel sounds. No palpable organomegaly. MUSCULOSKELETAL: No joint swelling or deformity. EXTREMITIES: No cyanosis, clubbing, or pedal edema. NEUROLOGICAL: Gross neurological examination did not reveal any focal deficits. SKIN: No rashes. no petechiae. - Labs CBC & Chem 7: 12/11/20 09:41 12/11/20 09:41 Labs: Microbiology - Last 24 Hours (Table) 12/10/20 17:40 Urine Culture - Preliminary Urine,Catheterized Gram Neg Bacilli Assessment and Plan Assessment: Altered mental status, most likely metabolic encephalopathy, rule out neurological causes Acute kidney injury with hyperkalemia, improving Acute urinary tract infection secondary to ESBL Proteus and E. coli. 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 Continue with antibiotic says per ID team and normal saline, monitor electrolytes and creatinine Consults infectious disease team Continue with [facility] neurology service signed off Labs and medication were reviewed.. Continue same treatment. Continue with symptomatic treatment. Resume home medication. Monitor lytes and vitals. DVT and GI prophylaxis. Further recommendations depends on the clinical course of the patient DVT prophylaxis: Subcutaneous heparin GI Prophylaxis: Pepcid PT/OT: Pending Prognosis is guarded
[2020-12-12 14:51] LABS: Anisocytosis Slight; Basophils % (A) 1 %; Eosinophils # (A) 0.4 k/uL (0-0.7); Eosinophils % (A) 5 %; HCT 28.3 % (34.0-46.0); HGB 8.4 gm/dL (11.4-16.0); Hypochromasia Marked; Lymphocytes # (A) 1.9 k/uL (1.0-4.8); Lymphocytes % (A) 22 %; MCH 30.5 pg (25.0-35.0); MCHC 29.8 g/dL (31.0-37.0); MCV 102.2 fL (80.0-100.0); Macrocytosis Moderate; Mean Platelet Volume 8.9; Monocytes # (A) 0.3 k/uL (0-1.0); Monocytes % (A) 4 %; Neutrophils # (A) 5.7 k/uL (1.3-7.7); Neutrophils % (A) 68 %; Platelet Count 288 k/uL (150-450); RBC 2.76 m/uL (3.80-5.40); RDW 16.4 % (11.5-15.5); WBC 8.4 k/uL (3.8-10.6)
[2020-12-12 15:00] LABS: African American GFR (CKD) 78 (>60 ml/min/1.73 sqM); Anion Gap 9 mmol/L; Blood Urea Nitrogen 20 mg/dL (7-17); Calcium 9.8 mg/dL (8.4-10.2); Carbon Dioxide 12 mmol/L (22-30); Chloride 115 mmol/L (98-107); Glucose 183 mg/dL (74-99); Non-African American GFR(CKD) 68 (>60 ml/min/1.73 sqM); Potassium 3.8 mmol/L (3.5-5.1); Sodium 136 mmol/L (137-145)
[2020-12-12] MEDS: PANTOPRAZOLE 40 MG TABLET PO SCH (17:48)
[2020-12-12] MEDS: ERTAPENEM 1 GM in SODIUM CHLORIDE 0.9% 50 ML IVPB SCH (17:48)
[2020-12-12] MEDS: PRIMIDONE 25 MG TAB PO SCH (21:10)
[2020-12-12] MEDS: SERTRALINE 100 MG TAB PO SCH (21:10)
[2020-12-12] MEDS: CYANOCOBALAMIN 500 MCG TAB PO SCH (21:10)
[2020-12-12] MEDS: MELATONIN 3 MG TABLET PO SCH (21:11)
[2020-12-12] MEDS: LEVOTHYROXINE 50 MCG TAB PO SCH (21:11)
[2020-12-12] MEDS: FOLIC ACID 1 MG TAB PO SCH (21:11)
[2020-12-12] MEDS: SERTRALINE 25 MG TAB PO SCH (21:12)
--- NOTE | 2020-12-12 22:35 | PN ---
PROGRESS NOTE DATE OF SERVICE: 12/12/2020 REASON FOR FOLLOWUP: ESBL E coli urinary tract infection. INTERVAL HISTORY: The patient is afebrile. The patient is breathing comfortably. The patient denies having any chest pain, shortness of breath, abdominal pain or diarrhea. PHYSICAL EXAMINATION: Blood pressure 137/79 with a pulse of 81, temperature 97.7, 96 % on 2 L nasal cannula. GENERAL DESCRIPTION: The patient is an elderly female lying in bed in no distress. RESPIRATORY SYSTEM: Unlabored breathing, clear to auscultation anteriorly. HEART: S1, S2. Regular rate and rhythm. ABDOMEN: Soft, no tenderness. LABS: Repeat urine culture positive for ESBL E coli and Proteus mirabilis. White count 8.4, creatinine 0.80. Ultrasound shows mild hydronephrosis. DIAGNOSTIC IMPRESSION AND PLAN: Patient with a complicated urinary tract infection, urine with ESBL E coli. The patient is on Invanz. She will get a ( ) and recommend another 10 days of IV Invanz on discharge. Continue supportive care. MMODL / IJN: [id number] /
[2020-12-13] MEDS: traMADol 50 MG TAB PO SCH ×4 (04:14→22:29)
[2020-12-13 05:59] LABS: Anisocytosis Slight; Basophils % (A) 0 %; Eosinophils # (A) 0.5 k/uL (0-0.7); Eosinophils % (A) 6 %; HCT 25.1 % (34.0-46.0); HGB 7.6 gm/dL (11.4-16.0); Hypochromasia Marked; Lymphocytes # (A) 1.8 k/uL (1.0-4.8); Lymphocytes % (A) 23 %; MCH 30.4 pg (25.0-35.0); MCHC 30.4 g/dL (31.0-37.0); MCV 100.1 fL (80.0-100.0); Macrocytosis Slight; Mean Platelet Volume 8.4; Monocytes # (A) 0.6 k/uL (0-1.0); Monocytes % (A) 7 %; Neutrophils # (A) 4.8 k/uL (1.3-7.7); Neutrophils % (A) 61 %; Platelet Count 296 k/uL (150-450); RBC 2.51 m/uL (3.80-5.40); RDW 16.8 % (11.5-15.5); WBC 7.8 k/uL (3.8-10.6)
[2020-12-13] MEDS: levETIRAcetam 500 MG TAB PO SCH ×2 (08:21→20:47)
[2020-12-13] MEDS: PANTOPRAZOLE 40 MG TABLET PO SCH ×2 (08:21→16:57)
[2020-12-13] MEDS: allopurinoL 100 MG TAB PO SCH (08:22)
[2020-12-13] MEDS: METOPROLOL TARTRATE 12.5 MG TAB PO SCH ×2 (08:22→20:47)
[2020-12-13] MEDS: SIMETHICONE 80 MG CHEWABLE PO SCH ×3 (08:22→16:57)
[2020-12-13] MEDS: FERROUS SULFATE 325 MG TAB PO SCH (08:22)
[2020-12-13] MEDS: CARBIDOPA-LEVODOPA ER 25-100MG 1 EACH TABLET.ER PO SCH ×3 (08:22→19:01)
[2020-12-13] MEDS: amLODIPine 10 MG TAB PO SCH (08:22)
[2020-12-13] MEDS: ERTAPENEM 1 GM in SODIUM CHLORIDE 0.9% 50 ML IVPB SCH (16:52)
[2020-12-13] MEDS: SODIUM CHLORIDE 0.9% 1,000 ML IV SCH (16:57)
--- NOTE | 2020-12-13 17:27 | PN ---
PROGRESS NOTE DATE OF SERVICE: 12/13/2020 REASON FOR FOLLOWUP: ESBL E coli urinary tract infection. INTERVAL HISTORY: The patient is afebrile. The patient is breathing comfortably. Denies having any chest pain, shortness of breath, abdominal pain or diarrhea. PHYSICAL EXAMINATION: Blood pressure 133/70 with a pulse of 56, temp 97.7. She is 96% on room air. GENERAL DESCRIPTION: The patient is an elderly female up in the chair in no distress. RESPIRATORY SYSTEM: Unlabored breathing. Clear to auscultation anteriorly. HEART: S1, S2. Regular rate and rhythm. ABDOMEN: Soft, no tenderness. LABS: Hemoglobin 7.4, white count is 7.8. DIAGNOSTIC IMPRESSION AND PLAN: Patient with ESBL E coli urinary tract infection. ( ) culture positive as well. She did get a midline. Continue with Invanz 1 g daily for 10 days and close outpatient followup. MMODL / IJN: [id number] /
[2020-12-13] MEDS: PRIMIDONE 25 MG TAB PO SCH (20:47)
[2020-12-13] MEDS: MELATONIN 3 MG TABLET PO SCH (20:48)
[2020-12-13] MEDS: LEVOTHYROXINE 50 MCG TAB PO SCH (20:48)
[2020-12-13] MEDS: FOLIC ACID 1 MG TAB PO SCH (20:48)
[2020-12-13] MEDS: CYANOCOBALAMIN 500 MCG TAB PO SCH (20:48)
[2020-12-13] MEDS: SERTRALINE 100 MG TAB PO SCH (20:49)
[2020-12-13] MEDS: SERTRALINE 25 MG TAB PO SCH (20:49)
--- NOTE | 2020-12-13 21:38 | P.PN ---
Subjective This is a pleasant 85 years old female with past medical history of atrial fibrillation, heart failure, CVA/TIA with right hemiparesis, Parkinson disease with resting tremor, dementia, GERD, hypertension, memory impairment, osteoarthritis, seizure disorder, hypothyroidism, chronic hypoxic respiratory failure on 3 liters of oxygen per minute, frequent UTI, nephrolithiasis. Hydronephrosis, anemia, gout, bowel obstruction status post ileostomy, d egenerative disc disease and chronic low back pain, restless leg syndrome, sacral wound Patient was transferred from [facility] for altered mental status normal labs white cell count and potassium, on admission patient had leukocytosis of 13.7 and hyperkalemia at 5.8. Patient is poor historian When asked about first name she says Bessie and last name she says Bessie again however when I told her it is Arthur she confirmed to me that. She no that she came from [facility] but she was disoriented to place. No the year but he was name of the president biting Patient denies any specific complaint to me Vitals show no fever. It looks stable Labs reviewed, leukocytosis of 13.7, and down to 11.8 K, hemoglobin of 7.6. Normal platelet count. BMP showing mild hyponatremia at 127, elevated potassium 5.8, elevated creatinine of 1.59, baseline fluctuates 0.6-1.3. Liver enzymes not elevated. The urinalysis is suspicious for infection with ileal BC more than 182 and looks turbid. Drug screen is positive for opiates, barbiturates and amphetamines EKG showing normal sinus rhythm at 78 with QTC of 4:[address]-T changes Chest x-ray: No acute process CT of the brain: No acute process. Patient was started on ceftriaxone in the emergency room, and normal saline at 75 mL/h Neurology service were consulted from emergency room 12/10/2020 Patient patient urine culture came back positive ESBL E. coli and Proteus. Blood pressure was on the low side 88/41 this morning. Recheck blood pressure showing SBP of 115. We'll increase to normal saline to 75 mL/h Consults infectious disease team 12/11/2020 Patient looks improving, her confusion is better, she is more oriented to the surrounding, more appropriate and follow commands She is hemodynamically stable WBC is back to normal at 8.4, creatinine normal at 0.8, hemoglobin improved to 7.7 with blood transfusion Iron Study showed anemia of chronic disease. Lipase is back close to normal at 72. Liver enzymes not elevated. 12/12/2020 Patient confused but is improving gradually. She is hemodynamically stable. We will check labs today She eats 25-100% of her meals She remains on Invanz and normal saline 75 mL/h lower to 40 mL per hour. Will give one-time dose of Lasix Possible discharge in 24-48 hours if she remains stable and improved 12/13/2020 Patient continued to improve gradually his mentation is at baseline. Patient also has history of dementia. She is hemodynamically stable Continue with Invanz with the plan to continue 10 days with IV antibiotics upon discharge for her ESBL microorganism and UTI Possible discharge in 24-48 course was cleared by ID team Objective - Vital Signs Vital signs: Vital Signs Temp 97.7 F 12/13/20 17:05 Pulse 80 12/13/20 17:05 Resp 20 12/13/20 17:05 BP 119/68 12/13/20 17:05 Pulse Ox 96 12/13/20 17:05 Intake & Output 12/13/20 12/13/20 12/14/20 06:59 18:59 06:59 Intake Total 1180 50 Output Total 310 Balance 870 50 Weight 74.843 kg Intake: Intake, IV Titration 480 50 Amount Ertapenem 1 gm In Sodium 50 Chloride 0.9% 50 ml @ 100 mls/hr IVPB DAILY@1600 [facility] Rx#:[id number] Sodium Chloride 0.9% 1, 480 000 ml @ 40 mls/hr IV . Q24H [facility] Rx#:[id number] Oral 700 Output: Urine 310 Other: Voiding Method Diaper Diaper Incontinent Incontinent External Catheter # Voids 1 - Exam -GENERAL: The patient confusion is improving, not in any acute distress. Well developed, well nourished. HEENT: Pupils are round and equally reacting to light. EOMI. No scleral icterus. No conjunctival pallor. Normocephalic, atraumatic. No pharyngeal erythema. No thyromegaly. CARDIOVASCULAR: S1 and S2 present. No murmurs, rubs, or gallops. PULMONARY: Chest is clear to auscultation, no wheezing or crackles. ABDOMEN: Soft, nontender, nondistended, normoactive bowel sounds. No palpable organomegaly. MUSCULOSKELETAL: No joint swelling or deformity. EXTREMITIES: No cyanosis, clubbing, or pedal edema. NEUROLOGICAL: Gross neurological examination did not reveal any focal deficits. SKIN: No rashes. no petechiae. - Labs CBC & Chem 7: 12/13/20 04:40 12/12/20 14:20 Labs: Abnormal Lab Results - Last 24 Hours (Table) 12/13/20 Range/Units 04:40 RBC 2.51 L (3.80-5.40) m/uL Hgb 7.6 L (11.4-16.0) gm/dL Hct 25.1 L (34.0-46.0) % MCV 100.1 H (80.0-100.0) fL MCHC 30.4 L (31.0-37.0) g/dL RDW 16.8 H (11.5-15.5) % Microbiology - Last 24 Hours (Table) 12/10/20 17:40 Urine Culture - Final Urine,Catheterized Escherichia coli Proteus mirabilis Assessment and Plan Assessment: Altered mental status, most likely metabolic encephalopathy, rule out neurol ogical causes Acute kidney injury with hyperkalemia, improving Acute urinary tract infection secondary to ESBL Proteus and E. coli. 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 Continue with antibiotic says per ID team and normal saline, monitor electrolytes and creatinine Consults infectious disease team Continue with [facility] neurology service signed off Labs and medication were reviewed.. Continue same treatment. Continue with symptomatic treatment. Resume home medication. Monitor lytes and vitals. DVT and GI prophylaxis. Further recommendations depends on the clinical course of the patient DVT prophylaxis: Subcutaneous heparin GI Prophylaxis: Pepcid PT/OT: Pending Prognosis is guarded
[2020-12-14] MEDS: BACLOFEN 10 MG TAB PO PRN (01:05)
[2020-12-14] MEDS: traMADol 50 MG TAB PO SCH ×2 (05:01→11:39)
[2020-12-14] MEDS: CARBIDOPA-LEVODOPA ER 25-100MG 1 EACH TABLET.ER PO SCH ×3 (09:03→21:46)
[2020-12-14] MEDS: PANTOPRAZOLE 40 MG TABLET PO SCH ×2 (09:04→16:44)
[2020-12-14] MEDS: allopurinoL 100 MG TAB PO SCH (09:04)
[2020-12-14] MEDS: FERROUS SULFATE 325 MG TAB PO SCH (09:04)
[2020-12-14] MEDS: SIMETHICONE 80 MG CHEWABLE PO SCH ×3 (09:04→16:44)
[2020-12-14] MEDS: levETIRAcetam 500 MG TAB PO SCH (09:04)
[2020-12-14] MEDS: amLODIPine 10 MG TAB PO SCH (09:05)
[2020-12-14] MEDS: METOPROLOL TARTRATE 12.5 MG TAB PO SCH ×2 (09:08→21:54)
[2020-12-14] MEDS ORDERED: LORazepam 2 MG/ML INJ ONE (09:53)
[2020-12-14] MEDS ORDERED: LORazepam 2 MG/ML INJ IV STA ×2 (09:53→10:04)
[2020-12-14 09:59] LABS: Glucose,Whole Blood 126 mg/dL (75-99)
[2020-12-14] MEDS: LORazepam 2 MG/ML INJ IV PRN (10:29)
--- NOTE | 2020-12-14 10:56 | CT ---
EXAMINATION TYPE: CT brain wo con DATE OF EXAM: 12/14/2020 COMPARISON: INDICATION: Seizures DLP: 1064.3 mGycm, Automated exposure control for dose reduction was used. CONTRAST: None CT of the brain is performed utilizing 3 mm thick sections through the posterior fossa and 3 mm thick sections through the remaining calvarium. Study is performed within 24 hours of arrival to the hosp [facility]. No abnormal hyperdensity is present to suggest an acute intracranial hemorrhage. No mass lesion is evident. There is vague diminished density through the right watershed region. Sulci at this level appear less prominent than elsewhere within the brain. Early ischemic change could be considered. Correlate with the patient's symptoms. Findings however appears stable from 12/08/2020 suggesting this may be some p reservation. There is some periventricular white matter hypodensity, likely on the basis of chronic w gabby matter ischemic change. Ventricles and sulci elsewhere are slightly prominent for the patient age compatible some age related atrophy.. Paranasal sinuses and mastoid air cells within the [id number]-he-nflm are clear. Appears to be some septal destruction anterior and inferior. Direct visualization is recommended. Rig ht septal deviation is noted. IMPRESSIONS: 1. Chronic appearing periventricular white matter ischemic changes. 2. There is some less focal atrophy within the right watershed region and right occipital lobe than e lsewhere within the brain, however this is stable from 12/08/2020. An acute underlying abnormality is not felt to be present at this level. 3. Cyst anterior-inferior septal destruction with septal deviation noted
[2020-12-14] MEDS: levETIRAcetam IV 1,000 MG in SALINE 1 100ML.BAG IVPB SCH (14:57)
[2020-12-14] MEDS: SODIUM CHLORIDE 0.9% 1,000 ML IV SCH (15:01)
[2020-12-14] MEDS: ERTAPENEM 1 GM in SODIUM CHLORIDE 0.9% 50 ML IVPB SCH (15:26)
[2020-12-14] MEDS ORDERED: PHENYTOIN SODIUM INJ 1,000 MG in SODIUM CHLORIDE 0.9% 100 ML IVPB STA (16:21)
--- NOTE | 2020-12-14 16:21 | P.PN ---
Subjective Progress Note Date: 12/14/20 Patient was initially seen by Dr. Juanito Glover. Please refer to his note for details. Patient was signed off by Dr. Juanito Glover on 12/09/2020. Neurology requested to follow-up. Patient is an 85-year-old female admitted with altered mental status, was felt to be due to toxic metabolic encephalopathy. Apparently patient had 3 witnessed seizure. The first time it happened when physical therapist was with the patient. She was not responding to the physical therapist and then she went into a seizure. Her vitals remained stable. About 10-15 minutes later, patient was still in the bed, head another seizure. This lasted for about 5 minutes. About half an hour later, patient had a third seizure. Patient was given total 3 mg Ativan, 1 mg after each seizure. Patient now is completely sedated/post ictal. No obvious convulsive activity noted. Objective - Vital Signs Vital signs: Vital Signs Temp 97.8 F 12/14/20 11:06 Pulse 89 12/14/20 11:06 Resp 14 12/14/20 11:06 BP 103/61 12/14/20 11:06 Pulse Ox 92 L 12/14/20 11:06 Intake & Output 12/13/20 12/14/20 12/14/20 18:59 06:59 18:59 Intake Total 50 Balance 50 Weight 74.843 kg Intake: Intake, IV Titration 50 Amount Ertapenem 1 gm In Sodium 50 Chloride 0.9% 50 ml @ 100 mls/hr IVPB DAILY@1600 [facility] Rx#:[id number] Other: Voiding Method Diaper Diaper Diaper Incontinent Incontinent Incontinent External Catheter External Catheter External Catheter - Exam Patient is severely obtunded, likely due to receiving Ativan 3 mg. Pupils are round and reacting. Oculocephalics are absent.. Tone is equal. Patient is areflexic. Plantars are flat. - Labs CBC & Chem 7: 12/13/20 04:40 12/12/20 14:20 Labs: Abnormal Lab Results - Last 24 Hours (Table) 12/14/20 Range/Units 09:53 POC Glucose (mg/dL) 126 H (75-99) mg/dL Assessment and Plan Assessment: * Witnessed seizures, now completely post ictal. Rule out nonconvulsive status epilepticus. * Altered mental status likely due to toxic metabolic encephalopathy (has acute on chronic kidney insuffiency, electrolyte imbalance) and due to underlying UTI--improving * History of Parkinson's disease * Dementia possibly due to multifactorial (Parkionson's and vascular) * Reported Seizure disorder * Acute on chronic kidney insufficiency * Acute urinary tract infection with history of recurrent urinary tract infection * Congestive heart failure * Restless leg syndrome * History of hypertension Plan: * Computed tomography scan of head showed chronic appearing periventricular white matter symmetric changes. There is some less focal atrophy within the right watershed region and right occipital lobe than elsewhere within the brain, however this is stable from 12/08/2020. An acute underlying abnormality is not felt to be present at this level. On my review, there is no acute process. * Stat EEG was performed, which revealed periodic (low voltage) epileptiform activity over the left temporal region, suggestive of underlying cortical irritability. Does not appear herpes encephalitis, as patient had normal mentation as of yesterday. * Discontinue tramadol. Patient was getting tramadol every 6 hours. * Increase Keppra to 1000 mg twice a day. * We will give only one loading dose of Dilantin 1000 mg IV. * We will repeat EEG in the morning if no improvement overnight. * I spoke to patient's daughter. Patient has history of seizures after she had a stroke. However she has not had any seizure for long time. She used to be on Depakote, but was switched to Keppra in December 2019. Patient's daughter believes that she was on Dilantin in the past as well. * Patient continues to be severely anemic with hemoglobin 7.6, platelets 296. B12 928, folate 7.3. TSH normal. * Continue sinemet ER 25-100 1 tab tid. Time with Patient: Greater than 30
[2020-12-14] MEDS: CYANOCOBALAMIN 500 MCG TAB PO SCH (21:47)
[2020-12-14] MEDS: FOLIC ACID 1 MG TAB PO SCH (21:53)
[2020-12-14] MEDS: PRIMIDONE 25 MG TAB PO SCH (21:54)
[2020-12-14] MEDS: LEVOTHYROXINE 50 MCG TAB PO SCH (21:54)
[2020-12-14] MEDS: MELATONIN 3 MG TABLET PO SCH (21:54)
--- NOTE | 2020-12-14 21:54 | P.PN ---
Subjective This is a pleasant 85 years old female with past medical history of atrial fibrillation, heart failure, CVA/TIA with right hemiparesis, Parkinson disease with resting tremor, dementia, GERD, hypertension, memory impairment, osteoarthritis, seizure disorder, hypothyroidism, chronic hypoxic respiratory failure on 3 liters of oxygen per minute, frequent UTI, nephrolithiasis. Hydronephrosis, anemia, gout, bowel obstruction status post ileostomy, d egenerative disc disease and chronic low back pain, restless leg syndrome, sacral wound Patient was transferred from [facility] for altered mental status normal labs white cell count and potassium, on admission patient had leukocytosis of 13.7 and hyperkalemia at 5.8. Patient is poor historian When asked about first name she says Bessie and last name she says Bessie again however when I told her it is [place] she confirmed to me that. She no that she came from [facility] but she was disoriented to place. No the year but he was name of the president biting Patient denies any specific complaint to me Vitals show no fever. It looks stable Labs reviewed, leukocytosis of 13.7, and down to 11.8 K, hemoglobin of 7.6. Normal platelet count. BMP showing mild hyponatremia at 127, elevated potassium 5.8, elevated creatinine of 1.59, baseline fluctuates 0.6-1.3. Liver enzymes not elevated. The urinalysis is suspicious for infection with ileal BC more than 182 and looks turbid. Drug screen is positive for opiates, barbiturates and amphetamines EKG showing normal sinus rhythm at 78 with QTC of 4:[address]-T changes Chest x-ray: No acute process CT of the brain: No acute process. Patient was started on ceftriaxone in the emergency room, and normal saline at 75 mL/h Neurology service were consulted from emergency room 12/10/2020 Patient patient urine culture came back positive ESBL E. coli and Proteus. Blood pressure was on the low side 88/41 this morning. Recheck blood pressure showing SBP of 115. We'll increase to normal saline to 75 mL/h Consults infectious disease team 12/11/2020 Patient looks improving, her confusion is better, she is more oriented to the surrounding, more appropriate and follow commands She is hemodynamically stable WBC is back to normal at 8.4, creatinine normal at 0.8, hemoglobin improved to 7.7 with blood transfusion Iron Study showed anemia of chronic disease. Lipase is back close to normal at 72. Liver enzymes not elevated. 12/12/2020 Patient confused but is improving gradually. She is hemodynamically stable. We will check labs today She eats 25-100% of her meals She remains on Invanz and normal saline 75 mL/h lower to 40 mL per hour. Will give one-time dose of Lasix Possible discharge in 24-48 hours if she remains stable and improved 12/13/2020 Patient continued to improve gradually his mentation is at baseline. Patient also has history of dementia. She is hemodynamically stable Continue with Invanz with the plan to continue 10 days with IV antibiotics upon discharge for her ESBL microorganism and UTI Possible discharge in 24-48 course was cleared by ID team 12/14/2020 Patient today had change in her clinical situation when she developed a total of 3 seizure witnessed by Staff and she received a total of 3 mg of Ativan We did a repeat stat CT of the brain: Showing no acute process. There is some this focal atrophy with the right watershed region however this is stable. 12/08 and acute underlying abnormality is not felt to be present at this level. Neurologist team were reconsulted to increase patient Keppra 1000 mg twice a day Herpes encephalitis felt less likely as patient was awakened to the seizure happened EEG was done showing epileptic discharge, another EEG will be repeated tomorrow after increasing Keppra Currently tramadol was discontinued and patient continued on IV Invanz for ESBL bacterial UTI Hemoglobin is 7.3 and we are going to to repeat CBC and BMP Review of systems: N/a, and is sleepy from Ativan and postictal Active Medications Generic Name Dose Route Start Last Admin Trade Name Freq PRN Reason Stop Dose Admin Hydrocodone Bitart/Acetaminophen 1 each 12/08/20 21:43 12/12/20 08:00 Hydrocodone/Apap 5-325mg 1 Each Tab PO 1 each Q8H PRN Administration Pain Al Hydroxide/Mg Hydroxide 30 ml 12/08/20 21:43 Mag Hydrox/Al Hydrox/Simeth 30 Ml Cup PO Q4H PRN Indigestion Allopurinol 200 mg 12/09/20 09:00 12/14/20 09:04 Allopurinol 100 Mg Tab PO 200 mg DAILY JACINTO Administration Amlodipine Besylate 10 mg 12/09/20 09:00 12/14/20 09:05 Amlodipine 10 Mg Tab PO 10 mg DAILY JACINTO Administration Baclofen 10 mg 12/08/20 21:43 12/14/20 01:05 Baclofen 10 Mg Tab PO 10 mg TID PRN Administration Mild Spasms Carbidopa/Levodopa 1 each 12/09/20 07:00 12/14/20 14:40 Carbidopa-Levodopa Er 25-100mg 1 Each Tablet.Er PO Not Given TID@0700,1300,1900 [facility] Cyanocobalamin 500 mcg 12/09/20 21:00 12/13/20 20:48 Cyanocobalamin 500 Mcg Tab PO 500 mcg HS JACINTO Administration Ferrous Sulfate 325 mg 12/09/20 09:00 12/14/20 09:04 Ferrous Sulfate 325 Mg Tab PO 325 mg DAILY JACINTO Administration Folic Acid 0.5 mg 12/09/20 21:00 12/13/20 20:48 Folic Acid 1 Mg Tab PO 0.5 mg HS JACINTO Administration Sodium Chloride 1,000 mls @ 40 mls/hr 12/08/20 16:30 12/14/20 15:01 Saline 0.9% IV 20 mls/hr .Q24H JACINTO Administration Ertapenem 1 gm/ Sodium 50 mls @ 100 mls/hr 12/10/20 16:30 12/14/20 15:26 Chloride IVPB 100 mls/hr DAILY@1600 [facility]TO Administration Protocol Levetiracetam 1,000 mg/ IV 100 mls @ 400 mls/hr 12/14/20 14:45 12/14/20 14:57 Solution IVPB 400 mls/hr Q12H JAC[facility]TO Administration Levothyroxine Sodium 50 mcg 12/09/20 21:00 12/13/20 20:48 Levothyroxine 50 Mcg Tab PO 50 mcg HS JACINTO Administration Lorazepam 1 mg 12/14/20 10:04 12/14/20 10:29 Lorazepam 2 Mg/Ml Inj IV 1 mg Q6HR PRN Administration Seizures Melatonin 3 mg 12/08/20 21:45 12/13/20 20:48 Melatonin 3 Mg Tablet PO 3 mg HS JACINTO Administration Metoprolol Tartrate 12.5 mg 12/09/20 09:00 12/14/20 09:08 Metoprolol Tartrate 12.5 Mg Tab PO Not Given BID JAC[facility]TO Miscellaneous Information 1 each 12/11/20 11:53 Magnesium Replacement Protocol 1 Each Misc MISCELLANE DAILY PRN Per Protocol Protocol Naloxone HCl 0.2 mg 12/08/20 16:23 Naloxone 0.4 Mg/Ml 1 Ml Vial IV Q2M PRN Opioid Reversal Pantoprazole Sodium 40 mg 12/12/20 17:30 12/14/20 16:44 Pantoprazole 40 Mg Tablet PO Not Given AC-BID JACINTO Primidone 25 mg 12/09/20 21:00 12/13/20 20:47 Primidone 25 Mg Tab PO 25 mg HS JACINTO Administration Ropinirole HCl 0.5 mg 12/09/20 07:00 12/14/20 14:40 Ropinirole Hcl 0.25 Mg Tab PO Not Given TID@0700,1300,1900 [facility] Sertraline HCl 25 mg 12/09/20 21:00 12/13/20 20:49 Sertraline 25 Mg Tab PO 25 mg HS JACINTO Administration Sertraline HCl 100 mg 12/09/20 21:00 12/13/20 20:49 Sertraline 100 Mg Tab PO 100 mg HS [facility] Administration Simethicone 80 mg 12/09/20 07:00 12/14/20 16:44 Simethicone 80 Mg Chewable PO Not Given TID@0700,1100,1700 [facility] Objective - Vital Signs Vital signs: Vital Signs Temp 97.8 F 12/14/20 11:06 Pulse 89 12/14/20 11:06 Resp 14 12/14/20 11:06 BP 103/61 12/14/20 11:06 Pulse Ox 92 L 12/14/20 11:06 Intake & Output 12/13/20 12/14/20 12/14/20 18:59 06:59 18:59 Intake Total 50 Balance 50 Weight 74.843 kg Intake: Intake, IV Titration 50 Amount Ertapenem 1 gm In Sodium 50 Chloride 0.9% 50 ml @ 100 mls/hr IVPB DAILY@1600 [facility] Rx#:[id number] Other: Voiding Method Diaper Diaper Diaper Incontinent Incontinent Incontinent External Catheter External Catheter External Catheter - Exam -GENERAL: The patient confusion is improving, not in any acute distress. Well developed, well nourished. HEENT: Pupils are round and equally reacting to light. EOMI. No scleral icterus. No conjunctival pallor. Normocephalic, atraumatic. No pharyngeal erythema. No thyromegaly. CARDIOVASCULAR: S1 and S2 present. No murmurs, rubs, or gallops. PULMONARY: Chest is clear to auscultation, no wheezing or crackles. ABDOMEN: Soft, nontender, nondistended, normoactive bowel sounds. No palpable organomegaly. MUSCULOSKELETAL: No joint swelling or deformity. EXTREMITIES: No cyanosis, clubbing, or pedal edema. NEUROLOGICAL: Gross neurological examination did not reveal any focal deficits. SKIN: No rashes. no petechiae. - Labs CBC & Chem 7: 12/13/20 04:40 12/12/20 14:20 Labs: Abnormal Lab Results - Last 24 Hours (Table) 12/14/20 Range/Units 09:53 POC Glucose (mg/dL) 126 H (75-99) mg/dL Assessment and Plan Assessment: Altered mental status, most likely metabolic encephalopathy, were improving and back to baseline. She developed seizure Breakthrough seizure Acute kidney injury with hyperkalemia, improving Acute urinary tract infection secondary to ESBL Proteus and E. coli. 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 And also had seizure Continue with antibiotic says per ID team and normal saline, monitor electrolytes and creatinine Consults infectious disease team Continue with Invanz neurology service be consulted for seizure, Keppra dose increased and Dilantin 1. DC tramadol Labs and medication were reviewed.. Continue same treatment. Continue with symptomatic treatment. Resume home medication. Monitor lytes and vitals. DVT and GI prophylaxis. Further recommendations depends on the clinical course of the patient DVT prophylaxis: Subcutaneous heparin GI Prophylaxis: Pepcid PT/OT: Pending Prognosis is guarded
[2020-12-14] MEDS: SERTRALINE 25 MG TAB PO SCH (21:55)
[2020-12-14] MEDS: SERTRALINE 100 MG TAB PO SCH (21:55)
[2020-12-14 22:15] LABS: Anisocytosis Slight; Basophils % (A) 0 %; Eosinophils # (A) 0.1 k/uL (0-0.7); Eosinophils % (A) 1 %; HCT 27.4 % (34.0-46.0); HGB 8.3 gm/dL (11.4-16.0); Hypochromasia Marked; Lymphocytes # (A) 1.6 k/uL (1.0-4.8); Lymphocytes % (A) 14 %; MCHC 30.2 g/dL (31.0-37.0); MCV 102.4 fL (80.0-100.0); Macrocytosis Moderate; Mean Platelet Volume 8.7; Monocytes # (A) 0.8 k/uL (0-1.0); Monocytes % (A) 7 %; Neutrophils # (A) 8.7 k/uL (1.3-7.7); Neutrophils % (A) 75 %; Platelet Count 253 k/uL (150-450); RBC 2.67 m/uL (3.80-5.40); RDW 16.3 % (11.5-15.5); WBC 11.6 k/uL (3.8-10.6)
[2020-12-14 22:22] LABS: Potassium 4.5 mmol/L (3.5-5.1)
[2020-12-14 22:23] LABS: African American GFR (CKD) 48 (>60 ml/min/1.73 sqM); Anion Gap 8 mmol/L; Blood Urea Nitrogen 14 mg/dL (7-17); Calcium 9.2 mg/dL (8.4-10.2); Carbon Dioxide 17 mmol/L (22-30); Chloride 111 mmol/L (98-107); Glucose 129 mg/dL (74-99); Non-African American GFR(CKD) 42 (>60 ml/min/1.73 sqM); Sodium 136 mmol/L (137-145)
[2020-12-14] MEDS ORDERED: FUROSEMIDE 10 MG/ML 2 ML VIAL IV ONE (22:48)
--- NOTE | 2020-12-15 05:05 | PN ---
PROGRESS NOTE DATE OF SERVICE: 12/14/2020 REASON FOR FOLLOWUP: ESBL E coli urinary tract infection. INTERVAL HISTORY: Patient is afebrile. The patient is breathing comfortably. The patient denies having any chest pain. No shortness of breath or cough. No nausea, vomiting. No abdominal pain or diarrhea. PHYSICAL EXAMINATION: Blood pressure is 96/47, pulse of 71, temperature 96. She is 96% on 4 L nasal cannula. General description is an elderly female lying in bed in no distress. Respiratory system: Unlabored breathing. Clear to auscultation anteriorly. Heart S1, S2. Regular rate. Abdomen: Soft, no tenderness. LABS: No new labs have been obtained today. DIAGNOSTIC IMPRESSION AND PLAN: Patient with ESBL E coli urinary tract infection. The patient did get a midline. Plan is for another 10 days of IV Invanz to finish a 2 week course of therapy. Continue supportive care. MMODL / IJN: [id number] /
[2020-12-15 05:32] LABS: Anisocytosis Slight; Basophils % (A) 0 %; Eosinophils # (A) 0.2 k/uL (0-0.7); Eosinophils % (A) 2 %; HCT 26.5 % (34.0-46.0); Hypochromasia Marked; Lymphocytes # (A) 1.6 k/uL (1.0-4.8); Lymphocytes % (A) 18 %; MCH 30.5 pg (25.0-35.0); MCHC 30.3 g/dL (31.0-37.0); MCV 100.7 fL (80.0-100.0); Macrocytosis Slight; Mean Platelet Volume 8.6; Monocytes # (A) 0.8 k/uL (0-1.0); Monocytes % (A) 9 %; Neutrophils # (A) 6.3 k/uL (1.3-7.7); Neutrophils % (A) 68 %; Platelet Count 288 k/uL (150-450); RBC 2.63 m/uL (3.80-5.40); RDW 16.4 % (11.5-15.5); WBC 9.2 k/uL (3.8-10.6)
[2020-12-15] MEDS: levETIRAcetam IV 1,000 MG in SALINE 1 100ML.BAG IVPB SCH ×2 (07:59→13:41)
[2020-12-15] MEDS: CARBIDOPA-LEVODOPA ER 25-100MG 1 EACH TABLET.ER PO SCH ×3 (08:08→20:29)
[2020-12-15] MEDS: PANTOPRAZOLE 40 MG TABLET PO SCH ×2 (08:08→15:34)
[2020-12-15] MEDS: SIMETHICONE 80 MG CHEWABLE PO SCH ×3 (08:08→15:33)
--- NOTE | 2020-12-15 08:21 | EEG ---
ELECTROENCEPHALOGRAM REPORT DATE OF SERVICE: 12/14/2020 PREAMBLE: This is an 85-year-old female who had three seizures witnessed by the staff today. Patient was given Ativan, now she is completely unresponsive. This study is performed to evaluate for any epileptiform activity, rule out status. EEG FINDINGS: This is a 21 channel portable EEG recording on patient utilizing 10/20 international system with referential and bipolar montages. The background consists of low voltage diffuse slowing in the 2-3 hertz generalized delta activity, with some intermittent suppressed pattern as well. There is very frequent-periodic epileptiform activity seen over the left temporal region. No electrographic seizure was recorded. A photic driving response was not seen. Background does not seem to be reactive to eye opening or closing. Different stages of sleep are not clearly seen. IMPRESSION: This is a severely abnormal EEG due to: 1. Background slowing, severe degree. This is suggestive of generalized cerebral dysfunction as can be seen with toxic metabolic encephalopathy or due to diffuse structural brain abnormality. 2. The presence of the frequent periodic low amplitude epileptiform activity over the left temporal region. This may suggest focal cortical irritability and tendency for seizures. 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 Clinical correlation and a followup EEG are recommended. MMODL / IJN: [id number] / [facility]ENTERClara
[2020-12-15] MEDS: amLODIPine 10 MG TAB PO SCH (09:20)
[2020-12-15] MEDS: allopurinoL 100 MG TAB PO SCH (09:20)
[2020-12-15] MEDS: FERROUS SULFATE 325 MG TAB PO SCH (09:21)
[2020-12-15] MEDS: METOPROLOL TARTRATE 12.5 MG TAB PO SCH ×2 (09:21→20:30)
--- NOTE | 2020-12-15 10:59 | P.PN ---
Subjective Progress Note Date: 12/15/20 12/15/2020: Patient not improved. Patient is laying in the bed. Continues to be severely encephalopathic, somnolent. Patient does not open her eyes to calling her name. No obvious seizure activity noted. 12/14/2020: Patient was initially seen by Dr. Juanito Glover. Please refer to his note for details. Patient was signed off by Dr. Juanito Glover on 12/09/2020. Neurology requested to follow-up. Patient is an 85-year-old female admitted with altered mental status, was felt to be due to toxic metabolic encephalopathy. Apparently patient had 3 witnessed seizure. The first time it happened when physical therapist was with the patient. She was not responding to the physical therapist and then she went into a seizure. Her vitals remained stable. About 10-15 minutes later, patient was still in the bed, head another seizure. This lasted for about 5 minutes. About half an hour later, patient had a third seizure. Patient was given total 3 mg Ativan, 1 mg after each seizure. Patient now is completely sedated/post ictal. No obvious convulsive activity noted. Objective - Vital Signs Vital signs: Vital Signs Temp 97.7 F 12/15/20 05:00 Pulse 71 12/15/20 05:00 Resp 20 12/15/20 05:00 BP 111/66 12/15/20 05:00 Pulse Ox 100 12/15/20 05:00 Intake & Output 12/14/20 12/15/20 12/15/20 18:59 06:59 18:59 Intake Total 490 0 Output Total 300 Balance 190 0 Intake: Intake, IV Titration 490 Amount Ertapenem 1 gm In Sodium 50 Chloride 0.9% 50 ml @ 100 mls/hr IVPB DAILY@1600 [facility] Rx#:[id number] Phenytoin Sodium Inj 1, 100 000 mg In Sodium Chloride 0.9% 100 ml @ 200 mls/hr IVPB [facility] Rx#: [id number] Sodium Chloride 0.9% 1, 240 000 ml @ 40 mls/hr IV . Q24H [facility] Rx#:[id number] levETIRAcetam IV 1,000 mg 100 In Saline 1 100ml.bag @ 400 mls/hr IVPB Q12H [facility] Rx#:[id number] Oral 0 Output: Stool 300 Other: Voiding Method Diaper Diaper External Catheter Incontinent Incontinent External Catheter External Catheter # Voids 2 - Exam Patient is severely obtunded, snoring, not responsive to loud vocal command. With painful stimuli, patient tries to withdraw, and sometimes starts shaking her right arm, or the left arm, mainly to painful stimuli. Her pupils are round and reacting. Gaze is midline. Oculocephalics absent. Corneals present. Neck is supple for flexion and extension, but appears stiff for [id number] movement. Tone is equal bilaterally. Her left foot tends to be everted. Reflexes are absent and plantars are flat. No obvious rash. Rest of the examination could not be performed. - Labs CBC & Chem 7: 12/15/20 04:45 12/14/20 21:56 Labs: Abnormal Lab Results - Last 24 Hours (Table) 12/14/20 12/14/20 12/15/20 Range/Units 21:56 21:56 04:45 WBC 11.6 H (3.8-10.6) k/uL RBC 2.67 L 2.63 L (3.80-5.40) m/uL Hgb 8.3 L 8.0 L (11.4-16.0) gm/dL Hct 27.4 L 26.5 L (34.0-46.0) % MCV 102.4 H 100.7 H (80.0-100.0) fL MCHC 30.2 L 30.3 L (31.0-37.0) g/dL RDW 16.3 H 16.4 H (11.5-15.5) % Neutrophils # 8.7 H (1.3-7.7) k/uL Sodium 136 L (137-145) mmol/L Chloride 111 H (98-107) mmol/L Carbon Dioxide 17 L (22-30) mmol/L Creatinine 1.19 H (0.52-1.04) mg/dL Glucose 129 H (74-99) mg/dL Assessment and Plan Assessment: * Witnessed seizures, with 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 * Altered mental status likely due to toxic metabolic encephalopathy (has acute on chronic kidney insuffiency, electrolyte imbalance) and due to underlying UTI--improving * History of Parkinson's disease * Dementia possibly due to multifactorial (Parkionson's and vascular) * Reported Seizure disorder * Acute on chronic kidney insufficiency * Acute urinary tract infection with history of recurrent urinary tract infection * Congestive heart failure * Restless leg syndrome * History of hypertension Plan: * Patient has not shown any improvement today. Still very encephalopathic, not responding to vocal commands. We will repeat EEG to rule out status. Lumbar puncture to rule out herpes encephalitis. * Computed tomography scan of head showed chronic appearing periventricular whi te matter symmetric changes. There is some less focal atrophy within the right watershed region and right occipital lobe than elsewhere within the brain, however this is stable from 12/08/2020. An acute underlying abnormality is not felt to be present at this level. On my review, there is no acute process. * EEG 12/14/2020 revealed periodic (low voltage) epileptiform activity over the left temporal region, suggestive of underlying cortical irritability. Does not appear herpes encephalitis, as patient had normal mentation as of yesterday. * Discontinue tramadol. Patient was getting tramadol every 6 hours. * Continue Keppra to 1000 mg twice a day. * We will give only one loading dose of Dilantin 1000 mg IV. * Check stat Dilantin and Keppra levels. * Patient continues to be severely anemic with hemoglobin 7.6, platelets 296. B12 928, folate 7.3. TSH normal. * Continue sinemet ER 25-100 1 tab tid.
[2020-12-15 11:53] LABS: African American GFR (CKD) 39.6 (60.0-200.0); Anion Gap 8.1 mmol/L (4.00-12.00); BUN/Creat Ratio 11.43 Ratio (12.00-20.00); Calcium 8.8 mg/dL (8.7-10.3); Carbon Dioxide 15.9 mmol/L (21.6-31.8); Non-African American GFR(CKD) 34.2 (60.0-200.0); Potassium 4.3 mmol/L (3.5-5.5)
[2020-12-15] MEDS: CEFTAZIDIME/AVIBACTAM 2.5 GM in SODIUM CHLORIDE 0.9% 100 ML IVPB SCH (15:41)
[2020-12-15] MEDS ORDERED: ERTAPENEM 0.5 GM in SODIUM CHLORIDE 0.9% 50 ML IVPB SCH (16:00)
--- NOTE | 2020-12-15 16:46 | PN ---
PROGRESS NOTE DATE OF SERVICE: 12/15/2020 REASON FOR FOLLOWUP: 1. ESBL E coli tract infection. 2. Seizure. INTERVAL HISTORY: The patient did have a seizure activity yesterday. Discharge has been put on hold. The patient did have adjustment of some of her medication and has been started on oral Bactrim. The patient is currently obtunded and is unable to provide any history. No vomiting or diarrhea has been reported by the nursing staff. PHYSICAL EXAMINATION: Blood pressure 138/43 with a pulse of 58, temperature 98.5. She is 100% on 4 L nasal cannula. General description is an elderly female lying in bed in no distress. Respiratory system: Unlabored breathing, decreased intensity of breath sounds. No wheeze. Heart: S1, S2. Regular rate and rhythm. Abdomen: Soft, no tenderness. Sacral did have stage II pressure ulcer, no cellulitis. LABS: Hemoglobin is 8, white count 9.2, BUN of 15, creatinine 1.4. DIAGNOSTIC IMPRESSION AND PLAN: Patient with ESBL E coli urinary tract infection now with complicated factor of seizure activity. The ertepenem is less likely. However, ertapenem has ( ) seizure activity. We will discontinue the ertapenem and start the patient on ( ) and monitor clinical course closely. Prognosis remains to be guarded. MMODL / IJN: [id number] /
--- NOTE | 2020-12-15 17:58 | EEG ---
ELECTROENCEPHALOGRAM REPORT PROCEDURE DATE: 12/15/2020. ELECTROENCEPHALOGRAM (EEG) REPORT: TECHNIQUE: This is a report from a prolonged 2.5 hour continuous digital video EEG performed using the 10/20 international electrode placement system. HISTORY: Altered mental status, hyponatremia, 3 seizures yesterday. CURRENT MEDICATIONS: Maalox, Zyloprim, Norvasc, Sinemet, vitamin B12, folic acid, [place], Keppra, Dilantin, Synthroid, Ativan, melatonin, Lopressor, Protonix, insulin, Requip, Zoloft. FINDINGS: Recording start time: 12/15/2020 at 12:08 pm. Recording end time: 12/15/2020 at 2:38 pm. EVENTS: During this prolonged 2.5 hours continuous video EEG, no clinical or electrographic seizures were recorded. BACKGROUND: The background activity consisted of unsustained 5-6 hertz rhythmic waveforms symmetrically seen over both posterior quadrants. ACTIVATION: Hyperventilation: Not performed. Photic stimulation: No driving seen. Sleep: Stages I and II sleep noted. ABNORMALITIES: 1. Diffuse synchronous and asynchronous 3-6 hertz slow wave activity was seen. 2. Rare low to moderate voltage sharp waves were seen with maximal amplitude at T5. 3. Please note that one of these runs was a frequency of 1 hertz and lasting approximately 8 seconds. This was not associated with clinical symptoms. IMPRESSION: Abnormal 2.5 hour video EEG. No clinical or electrographic seizures were recorded. The rare sharp waves seen over the left posterior temporal region are epileptiform in nature. The diffuse theta delta range slowing mentioned above is not epileptiform in nature. These findings indicate the presence of an epileptiform focus involving the left posterior temporal region. These findings also indicate moderate diffuse cerebral dysfunction. These findings were called to the neurologist taking care of the patient at 5:35 pm on 12/15/2020. MMODL / IJN: [id number] /
--- NOTE | 2020-12-15 18:03 | P.PN ---
Subjective This is a pleasant 85 years old female with past medical history of atrial fibrillation, heart failure, CVA/TIA with right hemiparesis, Parkinson disease with resting tremor, dementia, GERD, hypertension, memory impairment, osteoarthritis, seizure disorder, hypothyroidism, chronic hypoxic respiratory failure on 3 liters of oxygen per minute, frequent UTI, nephrolithiasis. Hydronephrosis, anemia, gout, bowel obstruction status post ileostomy, d egenerative disc disease and chronic low back pain, restless leg syndrome, sacral wound Patient was transferred from [facility] for altered mental status normal labs white cell count and potassium, on admission patient had leukocytosis of 13.7 and hyperkalemia at 5.8. Patient is poor historian When asked about first name she says Bessie and last name she says Bessie again however when I told her it is Banks she confirmed to me that. She no that she came from [facility] but she was disoriented to place. No the year but he was name of the president biting Patient denies any specific complaint to me Vitals show no fever. It looks stable Labs reviewed, leukocytosis of 13.7, and down to 11.8 K, hemoglobin of 7.6. Normal platelet count. BMP showing mild hyponatremia at 127, elevated potassium 5.8, elevated creatinine of 1.59, baseline fluctuates 0.6-1.3. Liver enzymes not elevated. The urinalysis is suspicious for infection with ileal BC more than 182 and looks turbid. Drug screen is positive for opiates, barbiturates and amphetamines EKG showing normal sinus rhythm at 78 with QTC of 4:[address]-T changes Chest x-ray: No acute process CT of the brain: No acute process. Patient was started on ceftriaxone in the emergency room, and normal saline at 75 mL/h Neurology service were consulted from emergency room 12/10/2020 Patient patient urine culture came back positive ESBL E. coli and Proteus. Blood pressure was on the low side 88/41 this morning. Recheck blood pressure showing SBP of 115. We'll increase to normal saline to 75 mL/h Consults infectious disease team 12/11/2020 Patient looks improving, her confusion is better, she is more oriented to the surrounding, more appropriate and follow commands She is hemodynamically stable WBC is back to normal at 8.4, creatinine normal at 0.8, hemoglobin improved to 7.7 with blood transfusion Iron Study showed anemia of chronic disease. Lipase is back close to normal at 72. Liver enzymes not elevated. 12/12/2020 Patient confused but is improving gradually. She is hemodynamically stable. We will check labs today She eats 25-100% of her meals She remains on Invanz and normal saline 75 mL/h lower to 40 mL per hour. Will give one-time dose of Lasix Possible discharge in 24-48 hours if she remains stable and improved 12/13/2020 Patient continued to improve gradually his mentation is at baseline. Patient also has history of dementia. She is hemodynamically stable Continue with Invanz with the plan to continue 10 days with IV antibiotics upon discharge for her ESBL microorganism and UTI Possible discharge in 24-48 course was cleared by ID team 12/14/2020 Patient today had change in her clinical situation when she developed a total of 3 seizure witnessed by Staff and she received a total of 3 mg of Ativan We did a repeat stat CT of the brain: Showing no acute process. There is some this focal atrophy with the right watershed region however this is stable. 12/08 and acute underlying abnormality is not felt to be present at this level. Neurologist team were reconsulted to increase patient Keppra 1000 mg twice a day Herpes encephalitis felt less likely as patient was awakened to the seizure happened EEG was done showing epileptic discharge, another EEG will be repeated tomorrow after increasing Keppra Currently tramadol was discontinued and patient continued on IV Invanz for ESBL bacterial UTI Hemoglobin is 7.3 and we are going to to repeat CBC and BMP 12/15/2020 Patient remains severely confused and sleepy, does not open eyes to verbal or tactile stimuli. No seizure-like activity is noted. No tremor Hemodynamically stable. Labs reviewed hemoglobin is 8.0, WBC is normal at 9.2, creatinine is slightly up at 1.4 which is similar on presentation. Also patient with no fever Antibiotics was changed to ceftazidime/avibactam for concerns that Invanz may contributing to patient's seizure, patient has ESBL bacterial UTI Discussed case with neurology service and their input is appreciated, they recommended repeating EEG, lumbar puncture and check liver for Catarino Ojeda Review of systems: N/a, and is sleepy from Ativan and postictal Active Medications Generic Name Dose Route Start Last Admin Trade Name Freq PRN Reason Stop Dose Admin Hydrocodone Bitart/Acetaminophen 1 each 12/08/20 21:43 12/12/20 08:00 Hydrocodone/Apap 5-325mg 1 Each Tab PO 1 each Q8H PRN Administration Pain Al Hydroxide/Mg Hydroxide 30 ml 12/08/20 21:43 Mag Hydrox/Al Hydrox/Simeth 30 Ml Cup PO Q4H PRN Indigestion Allopurinol 200 mg 12/09/20 09:00 12/15/20 09:20 Allopurinol 100 Mg Tab PO Not Given DAILY [facility] Amlodipine Besylate 10 mg 12/09/20 09:00 12/15/20 09:20 Amlodipine 10 Mg Tab PO Not Given DAILY [facility] Baclofen 10 mg 12/08/20 21:43 12/14/20 01:05 Baclofen 10 Mg Tab PO 10 mg TID PRN Administration Mild Spasms Carbidopa/Levodopa 1 each 12/09/20 07:00 12/15/20 12:57 Carbidopa-Levodopa Er 25-100mg 1 Each Tablet.Er PO Not Given TID@0700,1300,1900 [facility] Cyanocobalamin 500 mcg 12/09/20 21:00 12/14/20 21:47 Cyanocobalamin 500 Mcg Tab PO Not Given HS [facility] Ferrous Sulfate 325 mg 12/09/20 09:00 12/15/20 09:21 Ferrous Sulfate 325 Mg Tab PO Not Given DAILY [facility] Folic Acid 0.5 mg 12/09/20 21:00 12/14/20 21:53 Folic Acid 1 Mg Tab PO Not Given HS [facility] Levetiracetam 1,000 mg/ IV 100 mls @ 400 mls/hr 12/14/20 14:45 12/15/20 13:41 Solution IVPB 400 mls/hr Q12H [facility] Administration Ceftazidime/Avibactam 2.5 gm/ 100 mls @ 50 mls/hr 12/15/20 16:00 12/15/20 15:41 Sodium Chloride IVPB 50 mls/hr Q8HR [facility] Administration Protocol Levothyroxine Sodium 50 mcg 12/09/20 21:00 12/14/20 21:54 Levothyroxine 50 Mcg Tab PO Not Given HS [facility] Lorazepam 1 mg 12/14/20 10:04 12/14/20 10:29 Lorazepam 2 Mg/Ml Inj IV 1 mg Q6HR PRN Administration Seizures Melatonin 3 mg 12/08/20 21:45 12/14/20 21:54 Melatonin 3 Mg Tablet PO Not Given HS [facility] Metoprolol Tartrate 12.5 mg 12/09/20 09:00 12/15/20 09:21 Metoprolol Tartrate 12.5 Mg Tab PO Not Given BID [facility] Miscellaneous Information 1 each 12/11/20 11:53 Magnesium Replacement Protocol 1 Each Misc MISCELLANE DAILY PRN Per Protocol Protocol Naloxone HCl 0.2 mg 12/08/20 16:23 Naloxone 0.4 Mg/Ml 1 Ml Vial IV Q2M PRN Opioid Reversal Pantoprazole Sodium 40 mg 12/12/20 17:30 12/15/20 15:34 Pantoprazole 40 Mg Tablet PO Not Given AC-BID [facility] Primidone 25 mg 12/09/20 21:00 12/14/20 21:54 Primidone 25 Mg Tab PO Not Given HS [facility] Ropinirole HCl 0.5 mg 12/09/20 07:00 12/15/20 12:57 Ropinirole Hcl 0.25 Mg Tab PO Not Given TID@0700,1300,1900 [facility] Sertraline HCl 25 mg 12/09/20 21:00 12/14/20 21:55 Sertraline 25 Mg Tab PO Not Given HS [facility] Sertraline HCl 100 mg 12/09/20 21:00 12/14/20 21:55 Sertraline 100 Mg Tab PO Not Given HS [facility] Simethicone 80 mg 12/09/20 07:00 12/15/20 15:33 Simethicone 80 Mg Chewable PO Not Given TID@0700,1100,1700 [facility] Objective - Vital Signs Vital signs: Vital Signs Temp 97.5 F L 12/15/20 11:24 Pulse 68 12/15/20 11:24 Resp 18 12/15/20 11:24 BP 108/43 12/15/20 11:24 Pulse Ox 100 12/15/20 11:24 Intake & Output 12/14/20 12/15/20 12/15/20 18:59 06:59 18:59 Intake Total 490 0 810 Output Total 300 Balance 190 0 810 Weight 74.843 kg Intake: Intake, IV Titration 490 810 Amount Ceftazidime/Avibactam 2.5 100 gm In Sodium Chloride 0. 9% 100 ml @ 50 mls/hr IVPB Q8HR [facility] Rx#: [id number] Ertapenem 0.5 gm In 50 Sodium Chloride 0.9% 50 ml @ 100 mls/hr IVPB DAILY@1600 [facility] Rx#: [id number] Ertapenem 1 gm In Sodium 50 Chloride 0.9% 50 ml @ 100 mls/hr IVPB DAILY@1600 [facility] Rx#:[id number] Phenytoin Sodium Inj 1, 100 100 000 mg In Sodium Chloride 0.9% 100 ml @ 200 mls/hr IVPB ONCE [facility] Rx#: [id number] Sodium Chloride 0.9% 1, 240 360 000 ml @ 40 mls/hr IV . Q24H [facility] Rx#:[id number] levETIRAcetam IV 1,000 mg 100 200 In Saline 1 100ml.bag @ 400 mls/hr IVPB Q12H [facility] Rx#:[id number] Oral 0 Output: Stool 300 Other: Voiding Method Diaper Diaper External Catheter Incontinent Incontinent External Catheter External Catheter # Voids 2 2 # Bowel Movements 1 - Exam -GENERAL: The patient confusion is improving, not in any acute distress. Well developed, well nourished. HEENT: Pupils are round and equally reacting to light. EOMI. No scleral icterus. No conjunctival pallor. Normocephalic, atraumatic. No pharyngeal erythema. No thyromegaly. CARDIOVASCULAR: S1 and S2 present. No murmurs, rubs, or gallops. PULMONARY: Chest is clear to auscultation, no wheezing or crackles. ABDOMEN: Soft, nontender, nondistended, normoactive bowel sounds. No palpable organomegaly. MUSCULOSKELETAL: No joint swelling or deformity. EXTREMITIES: No cyanosis, clubbing, or pedal edema. NEUROLOGICAL: Gross neurological examination did not reveal any focal deficits. SKIN: No rashes. no petechiae. - Labs CBC & Chem 7: 12/15/20 04:45 12/15/20 04:45 Labs: Abnormal Lab Results - Last 24 Hours (Table) 12/14/20 12/14/20 12/15/20 Range/Units 21:56 21:56 04:45 WBC 11.6 H (3.8-10.6) k/uL RBC 2.67 L 2.63 L (3.80-5.40) m/uL Hgb 8.3 L 8.0 L (11.4-16.0) gm/dL Hct 27.4 L 26.5 L (34.0-46.0) % MCV 102.4 H 100.7 H (80.0-100.0) fL MCHC 30.2 L 30.3 L (31.0-37.0) g/dL RDW 16.3 H 16.4 H (11.5-15.5) % Neutrophils # 8.7 H (1.3-7.7) k/uL Sodium 136 L (137-145) mmol/L Chloride 111 H (98-107) mmol/L Carbon Dioxide 17 L (22-30) mmol/L Creatinine 1.19 H (0.52-1.04) mg/dL Est GFR (CKD-EPI)AfAm (60.0-200.0) Est GFR (CKD-EPI)NonAf (60.0-200.0) BUN/Creatinine Ratio (12.00-20.00) Ratio Glucose 129 H (74-99) mg/dL 12/15/20 Range/Units 04:45 WBC (3.8-10.6) k/uL RBC (3.80-5.40) m/uL Hgb (11.4-16.0) gm/dL Hct (34.0-46.0) % MCV (80.0-100.0) fL MCHC (31.0-37.0) g/dL RDW (11.5-15.5) % Neutrophils # (1.3-7.7) k/uL Sodium 133 L (137-145) mmol/L Chloride (98-107) mmol/L Carbon Dioxide 15.9 L (22-30) mmol/L Creatinine (0.52-1.04) mg/dL Est GFR (CKD-EPI)AfAm 39.6 L (60.0-200.0) Est GFR (CKD-EPI)NonAf 34.2 L (60.0-200.0) BUN/Creatinine Ratio 11.43 L (12.00-20.00) Ratio Glucose (74-99) mg/dL Assessment and Plan Assessment: Altered mental status, most likely metabolic encephalopathy, not improved. She developed seizure on 7/27 Breakthrough seizure Acute kidney injury with hyperkalemia, improving Acute urinary tract infection secondary to ESBL Proteus and E. coli. 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 And also had seizure Continue with antibiotic says per ID team . Discontinue normal saline, monitor electrolytes and creatinine Follow-up recommendation by infectious disease team . Continue with ceftazidime neurology service be consulted for seizure, patient is currently on Keppra. A tivan as needed. Further workup is warranted:repeating EEG, lumbar puncture and check liver for Catarino Ojeda Labs and medication were reviewed.. Continue same treatment. Continue with symptomatic treatment. Resume home medication. Monitor lytes and vitals. DVT and GI prophylaxis. Further recommendations depends on the clinical course of the patient DVT prophylaxis: Subcutaneous heparin GI Prophylaxis: Pepcid Prognosis is guarded
[2020-12-15] MEDS: CYANOCOBALAMIN 500 MCG TAB PO SCH (20:29)
[2020-12-15] MEDS: SERTRALINE 100 MG TAB PO SCH (20:30)
[2020-12-15] MEDS: MELATONIN 3 MG TABLET PO SCH (20:30)
[2020-12-15] MEDS: PRIMIDONE 25 MG TAB PO SCH (20:30)
[2020-12-15] MEDS: LEVOTHYROXINE 50 MCG TAB PO SCH (20:30)
[2020-12-15] MEDS: FOLIC ACID 1 MG TAB PO SCH (20:30)
[2020-12-15] MEDS: SERTRALINE 25 MG TAB PO SCH (20:30)
[2020-12-16] MEDS: CEFTAZIDIME/AVIBACTAM 2.5 GM in SODIUM CHLORIDE 0.9% 100 ML IVPB SCH ×2 (00:37→08:11)
[2020-12-16] MEDS: levETIRAcetam IV 1,000 MG in SALINE 1 100ML.BAG IVPB SCH (03:32)
[2020-12-16] MEDS: PANTOPRAZOLE 40 MG TABLET PO SCH (08:16)
[2020-12-16] MEDS: FERROUS SULFATE 325 MG TAB PO SCH (08:16)
[2020-12-16] MEDS: amLODIPine 10 MG TAB PO SCH (08:16)
[2020-12-16] MEDS: allopurinoL 100 MG TAB PO SCH (08:16)
[2020-12-16] MEDS: CARBIDOPA-LEVODOPA ER 25-100MG 1 EACH TABLET.ER PO SCH ×2 (08:16→13:08)
[2020-12-16] MEDS: METOPROLOL TARTRATE 12.5 MG TAB PO SCH (08:16)
[2020-12-16] MEDS: SIMETHICONE 80 MG CHEWABLE PO SCH ×2 (08:16→13:08)
--- NOTE | 2020-12-16 09:40 | CT ---
EXAMINATION TYPE: CT brain wo con DATE OF EXAM: 12/16/2020 COMPARISON: 12/14/2020 INDICATION: AMS changes DLP: 1956.2 mGycm, Automated exposure control for dose reduction was used. CONTRAST: None CT of the brain is performed utilizing 3 mm thick sections through the posterior fossa and 3 mm thick sections through the remaining calvarium. Study is performed within 24 hours of arrival to the hosp [facility]. No abnormal hyperdensity is present to suggest an acute intracranial hemorrhage. No mass lesion is evident. No acute infarcts are evident. Periventricular white matter hypodensity is present, likely on the bas is of chronic white matter ischemic changes. Ventricles and sulci are mildly prominent for the patient age. Left lateral ventricle is slightly mo re prominent, this is stable finding. No suspicious temporal horn dilatation is evident. Paranasal sinuses and mastoid air cells within the [id number] are clear. IMPRESSIONS: 1. Stable age-related atrophy with chronic stable appearing periventricular white matter ischemic c yajaira.
[2020-12-16] MEDS ORDERED: PHENYTOIN SODIUM INJ 1,000 MG in SODIUM CHLORIDE 0.9% 100 ML IVPB STA (10:34)
[2020-12-16] MEDS ORDERED: LORazepam 2 MG/ML INJ IV STA (10:34)
[2020-12-16] MEDS: LORazepam 2 MG/ML INJ IV PRN ×2 (10:52→10:58)
[2020-12-16] MEDS ORDERED: ACYCLOVIR SODIUM 1,000 MG in SODIUM CHLORIDE 0.9% 250 ML IVPB SCH (11:00)
[2020-12-16 11:10] LABS: Glucose,Whole Blood 110 mg/dL (75-99)
--- NOTE | 2020-12-16 11:12 | P.PN ---
Subjective Progress Note Date: 12/16/20 06/18/2020: Came into see the patient at 10:30 AM, patient actively seizing, grand mal full-body seizure. Call the nurse, give Ativan 1 mg IV. Patient seizure did not stop. After 5 minutes, she was noted to have focal seizure involving the right arm and facial region. Given another (0.5 and then 1.0 mg), total 2.5 mg of Ativan since she was found to have status epilepticus. Per nursing report, she saw the patient at 10:20 AM and she was not seizing. Patient will be empirically started on acyclovir 10 mg/kg every 8 hours. Lumbar puncture is scheduled for 1 PM today. Patient will also be given another loading dose of Dilantin. 12/15/2020: Patient not improved. Patient is laying in the bed. Continues to be severely encephalopathic, somnolent. Patient does not open her eyes to calling her name. No obvious seizure activity noted. 12/14/2020: Patient was initially seen by Dr. Juanito Glover. Please refer to his note for details. Patient was signed off by Dr. Juanito Glover on 12/09/2020. Neurology requested to follow-up. Patient is an 85-year-old female admitted with altered mental status, was felt to be due to toxic metabolic encephalopathy. Apparently patient had 3 witnessed seizure. The first time it happened when physical therapist was with the patient. She was not responding to the physical therapist and then she went into a seizure. Her vitals remained stable. About 10-15 minutes later, patient was still in the bed, head another seizure. This lasted for about 5 minutes. About half an hour later, patient had a third seizure. Patient was given total 3 mg Ativan, 1 mg after each seizure. Patient now is completely sedated/post ictal. No obvious convulsive activity noted. Objective - Vital Signs Vital signs: Vital Signs Temp 98.7 F 12/16/20 04:45 Pulse 90 12/16/20 04:45 Resp 20 12/16/20 08:00 BP 112/60 12/16/20 04:45 Pulse Ox 92 L 12/16/20 04:45 Intake & Output 12/15/20 12/16/20 12/16/20 18:59 06:59 18:59 Intake Total 810 200 Output Total 600 Balance 810 -400 Weight 74.843 kg Intake: Intake, IV Titration 810 200 Amount Ceftazidime/Avibactam 2.5 100 100 gm In Sodium Chloride 0. 9% 100 ml @ 50 mls/hr IVPB Q8HR [facility] Rx#: [id number] Ertapenem 0.5 gm In 50 Sodium Chloride 0.9% 50 ml @ 100 mls/hr IVPB DAILY@1600 [facility] Rx#: [id number] Phenytoin Sodium Inj 1, 100 000 mg In Sodium Chloride 0.9% 100 ml @ 200 mls/hr IVPB ONCE [facility] Rx#: [id number] Sodium Chloride 0.9% 1, 360 000 ml @ 40 mls/hr IV . Q24H [facility] Rx#:[id number] levETIRAcetam IV 1,000 mg 200 100 In Saline 1 100ml.bag @ 400 mls/hr IVPB Q12H [facility] Rx#:[id number] Oral 0 Output: Urine 600 Other: Voiding Method External Catheter External Catheter External Catheter # Voids 2 # Bowel Movements 1 - Exam Patient is actively seizing. Initially was grand mal seizure and after 5 minutes turned to focal seizures involving right side of the body. It was a constant seizure noticed at 10:30 AM, and finally stopped seizing at 10:47 AM. At 10:51 AM, started seizure again mainly focal involving right side. Her pupils are round and reacting. Gaze is midline. Patient is actively seizing pa tient was given another 1 mg Ativan. Blood sugar 110. - Labs CBC & Chem 7: 12/15/20 04:45 12/15/20 04:45 Labs: Abnormal Lab Results - Last 24 Hours (Table) 12/15/20 12/15/20 Range/Units 04:45 04:45 Sodium 133 L (135-145) mmol/L Carbon Dioxide 15.9 L (21.6-31.8) mmol/L Est GFR (CKD-EPI)AfAm 39.6 L (60.0-200.0) Est GFR (CKD-EPI)NonAf 34.2 L (60.0-200.0) BUN/Creatinine Ratio 11.43 L (12.00-20.00) Ratio Levetiracetam 94.5 H (3.0-60.0) ug/mL Assessment and Plan Assessment: * Status epilepticus, exact cause is uncertain. Rule out herpes encephalitis. Patient's temperature is normal, white cells are normal. We will empirically start acyclovir. * Altered mental status likely due to toxic metabolic encephalopathy (has acute on chronic kidney insuffiency, electrolyte imbalance) and due to underlying UTI--improving * History of Seizure disorder * Dementia possibly due to multifactorial (Parkionson's and vascular) * Acute on chronic kidney insufficiency * Acute urinary tract infection with history of recurrent urinary tract infect ion * Congestive heart failure * Restless leg syndrome * History of hypertension Plan: * Patient is actively seizing, in status epilepticus. Patient has received 2.5 mg of Ativan. Dilantin level is 8.0 and Keppra level was 94.5 (3-60) as of yesterday morning. We will give her another 1 g of Dilantin, to bring the levels up to around 20. * Patient started on acyclovir empirically to cover for HSV encephalitis. Discussed with ID, who will adjust the dose according to renal functions. * Decrease Keppra to 500 mg IV twice a day because of very high levels. * Prolonged, 2.5 hour video EEG performed 12/15/2020 showed no clinical or electrographic seizures. There are sharp waves seen over the left posterior temporal region are epileptiform in nature. The diffuse theta and delta range slowing mentioned above is not epileptiform in nature. These findings indicate the presence of an epileptiform focus involving the left posterior temporal region. These findings also indicate moderate diffuse cerebral dysfunction. * Based upon improvement in the EEG pattern yesterday, Dilantin was not continued. Keppra was increased to 1000 mg twice a day. It was felt that patient probably is postictal and hopefully will improve overnight. * Lumbar puncture is still pending. * Repeat computed tomography scan of the head performed today, 12/16/2020 showed no change. No CVA or mass. * EEG 12/14/2020 revealed periodic (low voltage) epileptiform activity over the left temporal region, suggestive of underlying cortical irritability. Does not appear herpes encephalitis, as patient had normal mentation as of yesterday. * Discontinue tramadol. Patient was getting tramadol every 6 hours. * Patient continues to be severely anemic with hemoglobin 7.6, platelets 296. B12 928, folate 7.3. TSH normal. * Transfer to ICU. Probably would need intubation because of status epilepticus for airway protection. Suggest urgent transfer to [facility] for need for continuous EEG monitoring. Spoke to Dr. Lin, who agreed to be transferred to [facility]. If there is any delay in transfer, then would recommend stat EEG. Discussed with Dr. Orourke in detail. Time with Patient: Greater than 30
[2020-12-16 11:21] LABS: Glucose,Whole Blood 110 mg/dL (75-99)
[2020-12-16] MEDS ORDERED: propofoL 100 ML IV ONE (11:46)
[2020-12-16] MEDS ORDERED: CISATRACURIUM 2 MG/ML 5 ML VIAL IV ONE (11:46)
--- NOTE | 2020-12-16 12:03 | P.CNPUL ---
History of Present Illness Consult date: 12/16/20 Chief complaint: status epilepticus History of present illness: This is an 85-year-old [place] [facility] patient who got transferred to the intensive care unit because of having grand mal seizures lasting for 20 min. The patient was given 1 mg of IV Ativan. The seizure did not stop. Following that, the patient started having some focal seizures involving the right upper extremity and the face. She was given another 1 mg of Ativan. She was started on IV acyclovir. She was given another dose of Dilantin, loading dose. Note that the patient was quite encephalopathic for the past 2 days. She was not medicating. However she did not have any obvious seizure activity. Her last seizure was from 2 days ago and at that time she was given 3 mg of Ativan and placed on a combination of Keppra and Dilantin. Please refer to the neurology notes regarding details of her ongoing seizure activity. For now, the patient is completely unresponsive. She'll be intubated for airway protection. Following that she'll be placed on propofol drip and do not believe he'll be obtained. The patient will likely get transferred to [facility]. Her CAT scan of the brain did not show any acute abnormalities. She has multiple medical problems and comorbidities. She has Parkinson's disease. She has dementia with impairment in cognitive function and memory. She has previous history of seizure disorder that has been well controlled over the years. She has chronic hypoxic respiratory failure, previous history of CVA, previous histo ry of atrial fibrillation, previous history of bowel obstruction with a previous ileostomy, degenerative disc disease and chronic back pain and restless leg syndrome. [place] [facility] because of altered mentation and leukocytosis. At that time, the patient was further investigated and she was diagnosed having a ESBL producing urine checked infection with E. coli. The chest x-ray showed no acute process. She ultimately had ESBL producing E. coli and Proteus and she was placed on IV Invanz which was later on switched to IV cefazolin because of her seizure activity. Review of Systems ROS unobtainable: due to mental status Past Medical History Past Medical History: Unable to Obtain, Atrial Fibrillation, Heart Failure, CVA/TIA, Dementia, GERD/Reflux, Hypertension, Memory Impairment, Musculoskeletal Disorder, Neurologic Disorder, Osteoarthritis (OA), Pneumonia, Respiratory Disor sincere, Seizure Disorder, Thyroid Disorder Additional Past Medical History / Comment(s): Pt recently admitted to [facility] on 10/05/20 with loss of consciousness, acute renal failure and generalized deconditioning. Other Hx: O2 at 3L/NC ATC, R side pleural effusion/pneumonia, CVA wtih R sided weakness, parkinsons with increased tremors, metabolic encephalopathy, frequent UTIs, nephrolithiasis, pyelonephritis, hydronephrosis, anemia, gout, bowel blockage with ileostomy, last seizure many years ago, chronic low back pain/DDD, RLS, hypothyroid, sacral wound History of Any Multi-Drug Resistant Organisms: ESBL, MRSA Date of last positivie culture/infection: 12/10/20 ESBL E.Coli; MRSA 2008 MDRO Source:: ESBL Urine; MRSA Stool Past Surgical History: Unable to Obtain, Back Surgery, Bowel Resection, Cholecystectomy Additional Past Surgical History / Comment(s): Lumbar back surgeries x4, bowel resection/ileostomy, colonoscopy, cysto/bilateral ureteral stents. Past Anesthesia/Blood Transfusion Reactions: No Reported Reaction Past Psychological History: Anxiety Additional Psychological History / Comment(s): Pt resides at [facility]. She is up with walker and animal assistant. She needs assistance with all ADLs d/t tremors and R sided weakness. Mood disorder. 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 - Past Family History Father Family Medical History: Cancer Additional Family Medical History / Comment(s): lung CA Mother Family Medical History: Cancer Additional Family Medical History / Comment(s): Ovarian cancer Sister(s) Additional Family Medical History / Comment(s): emphysema Medications and Allergies Home Medications Medication Instructions Recorded Confirmed Type Aspirin 81 mg PO HS 09/18/18 12/08/20 History Levothyroxine Sodium [Synthroid] 50 mcg PO HS 09/18/18 12/08/20 History Melatonin 3 mg PO HS 09/18/18 12/08/20 History Sertraline [Zoloft] 100 mg PO HS 09/18/18 12/08/20 History Lactulose 20 gm PO BID 06/08/19 12/08/20 History Metoprolol Tartrate [Lopressor] 12.5 mg PO BID 01/12/20 12/08/20 History rOPINIRole HCL [Requip] 0.5 mg PO TID@0700,1300,1900 01/12/20 12/08/20 History Pantoprazole Sodium [Protonix] 40 mg PO DAILY 08/29/20 12/08/20 History levETIRAcetam [Keppra] 500 mg PO BID 08/29/20 12/08/20 History Budesonide [Pulmicort] 0.5 mg INHALATION RT-BID ml 09/07/20 12/08/20 Rx Ipratropium-Albuterol Nebulize 3 ml INHALATION RT-QID PRN 10/05/20 12/08/20 History [Duoneb 0.5 mg-3 mg/3 ml Soln] Baclofen [Lioresal] 10 mg PO TID PRN 10/13/20 12/08/20 History Cyanocobalamin [Vitamin B-12] 500 mcg PO HS 10/13/20 12/08/20 History Folic Acid 0.4 mg PO HS 10/13/20 12/08/20 History Primidone [Mysoline] 25 mg PO HS 10/13/20 12/08/20 History allopurinoL [Zyloprim] 200 mg PO DAILY 10/13/20 12/08/20 History Ferrous Sulfate [Iron (65 MG 325 mg PO DAILY 30 Days #30 tab 10/19/20 12/08/20 Rx Elemental)] amLODIPine [Norvasc] 10 mg PO DAILY tab 10/19/20 12/08/20 Rx Acetaminophen [Tylenol Arthritis] 650 mg PO TID@0500,1300,2100 12/08/20 12/08/20 History Carbidopa/Levodopa [Carbidopa-Levo 1 tab PO TID@0700,1300,1900 12/08/20 12/08/20 History ER 25-100 Tab] Healthshake 1 dose PO BID 12/08/20 12/08/20 History Mag Hydrox/Aluminum Hyd/Simeth 30 ml PO Q4H PRN 12/08/20 12/08/20 History [Mylanta Maximum Strength Liq] Sertraline [Zoloft] 25 mg PO HS 12/08/20 12/08/20 History Simethicone 80 mg PO TID@0700,1100,1700 12/08/20 12/08/20 History Sodium Chloride [[place]] 1 spray EA NOSTRIL 12/08/20 12/08/20 History TID@0700,1300,1900 traMADol HCL 50 mg PO Q8H PRN #6 tab 12/13/20 Rx Allergies Allergy/AdvReac Type Severity Reaction Status Date / Time amoxicillin [From Augmentin] Allergy Unknown Verified 12/08/20 16:03 clavulanic acid Allergy Unknown Verified 12/08/20 16:03 [From Augmentin] codeine Allergy Unknown Verified 12/08/20 16:03 Physical Exam Vitals: Vital Signs Temp Pulse Resp BP Pulse Ox 12/16/20 11:01 99.5 F 115 H 20 114/51 94 L 12/16/20 08:00 20 12/16/20 04:45 98.7 F 90 20 112/60 92 L 12/15/20 19:45 97.8 F 68 20 96/57 94 L Intake and Output 12/15/20 12/16/20 12/16/20 22:59 06:59 14:59 Intake Total 810 200 Output Total 600 Balance 810 -400 Intake: Intake, IV Titration 810 200 Amount Ceftazidime/Avibactam 2.5 100 100 gm In Sodium Chloride 0. 9% 100 ml @ 50 mls/hr IVPB Q8HR [facility] Rx#: [id number] Ertapenem 0.5 gm In 50 Sodium Chloride 0.9% 50 ml @ 100 mls/hr IVPB DAILY@1600 [facility] Rx#: [id number] Phenytoin Sodium Inj 1, 100 000 mg In Sodium Chloride 0.9% 100 ml @ 200 mls/hr IVPB ONCE [facility] Rx#: [id number] Sodium Chloride 0.9% 1, 360 000 ml @ 40 mls/hr IV . Q24H [facility] Rx#:[id number] levETIRAcetam IV 1,000 mg 200 100 In Saline 1 100ml.bag @ 400 mls/hr IVPB Q12H [facility] Rx#:[id number] Oral 0 Output: Urine 600 Other: Voiding Method External Catheter External Catheter # Voids 2 # Bowel Movements 1 -GENERAL: The patient unresponsive No active seizure activity or tonic-clonic activity was seen in the intensive care unit. She was probably postictal Head exam was generally normal. There was no scleral icterus or corneal arcus. Mucous membranes were moist. Neck was supple and without jugular venous distension, thyromegaly, or carotid bruits. Carotids were easily palpable bilaterally. There was no adenopathy. Lungs were clear to auscultation and percussion, and with normal diaphragmatic excursion. No wheezes or rales were noted. Cardiac exam revealed the PMI to be normally situated and sized. The rhythm was regular and no extrasystoles were noted during several minutes of auscultation. The first and second heart sounds were normal and physiologic splitting of the second heart sound was noted. There were no murmurs, rubs, clicks, or gallops. Abdominal exam revealed normal bowel sounds. The abdomen was soft, non-tender, and without masses, organomegaly, or appreciable enlargement of the abdominal aorta. Examination of the skin shows a stage II sacral decubitus ulceration. Neurologically the patient is unresponsive. A full neurologic exam cannot be completely done at this point in time. No seizure activity or tonic-clonic acti vity was noted. Pupils are equal and symmetrical, reactive to light. Results - Laboratory Findings CBC and BMP: 12/15/20 04:45 12/15/20 04:45 PT/INR, D-dimer PT 10.9 sec (9.0-12.0) 12/08/20 14:29 INR 1.0 (<1.2) 12/08/20 14:29 Abnormal lab findings: Abnormal Labs 12/08/20 12/08/20 12/08/20 14:29 14:29 14:29 WBC 13.7 H RBC 2.56 L Hgb 8.0 L Hct 26.2 L MCV 102.3 H MCHC 30.4 L RDW 16.9 H Neutrophils # 9.8 H Monocytes # 1.4 H Sodium 127 L Potassium 5.8 H Chloride Carbon Dioxide 10 L BUN 59 H Creatinine 1.59 H Est GFR (CKD-EPI)AfAm Est GFR (CKD-EPI)NonAf BUN/Creatinine Ratio Glucose 115 H POC Glucose (mg/dL) Iron TIBC Ferritin Alkaline Phosphatase 200 H Total Protein 8.3 H Procalcitonin Urine Appearance Turbid H Urine Protein Urine Blood Urine Nitrite Ur Leukocyte Esterase Urine RBC >182 H Urine WBC >182 H Urine WBC Clumps Many H Ur Squamous Epith Cells 10 H Urine Bacteria Many H Urine Mucus Urine Opiates Screen Detected H Ur Barbiturates Screen Detected H Levetiracetam Ur Amphetamines Screen Detected H Crossmatch 12/08/20 12/09/20 12/09/20 14:32 05:30 05:30 WBC RBC Hgb Hct MCV MCHC RDW Neutrophils # Monocytes # Sodium 132 L Potassium 5.8 H Chloride 110 H Carbon Dioxide 10 L BUN 52 H Creatinine 1.13 H Est GFR (CKD-EPI)AfAm Est GFR (CKD-EPI)NonAf BUN/Creatinine Ratio Glucose 114 H POC Glucose (mg/dL) 106 H Iron TIBC Ferritin Alkaline Phosphatase Total Protein Procalcitonin 0.48 H Urine Appearance Urine Protein Urine Blood Urine Nitrite Ur Leukocyte Esterase Urine RBC Urine WBC Urine WBC Clumps Ur Squamous Epith Cells Urine Bacteria Urine Mucus Urine Opiates Screen Ur Barbiturates Screen Levetiracetam Ur Amphetamines Screen Crossmatch 12/09/20 12/10/20 12/10/20 06:05 05:41 05:41 WBC 11.8 H RBC 2.49 L 2.20 L Hgb 7.6 L 6.8 L* Hct 25.3 L 22.9 L MCV 101.5 H 103.9 H MCHC 30.0 L 29.7 L RDW 16.5 H 16.9 H Neutrophils # 8.7 H Monocytes # 1.1 H Sodium 133 L Potassium Chloride 114 H Carbon Dioxide 12 L BUN 38 H Creatinine Est GFR (CKD-EPI)AfAm Est GFR (CKD-EPI)NonAf BUN/Creatinine Ratio Glucose 102 H POC Glucose (mg/dL) Iron TIBC Ferritin Alkaline Phosphatase Total Protein Procalcitonin Urine Appearance Urine Protein Urine Blood Urine Nitrite Ur Leukocyte Esterase Urine RBC Urine WBC Urine WBC Clumps Ur Squamous Epith Cells Urine Bacteria Urine Mucus Urine Opiates Screen Ur Barbiturates Screen Levetiracetam Ur Amphetamines Screen Crossmatch 12/10/20 12/10/20 12/10/20 05:41 08:57 17:45 WBC RBC Hgb Hct MCV MCHC RDW Neutrophils # Monocytes # Sodium Potassium Chloride Carbon Dioxide BUN Creatinine Est GFR (CKD-EPI)AfAm Est GFR (CKD-EPI)NonAf BUN/Creatinine Ratio Glucose POC Glucose (mg/dL) Iron 45 L TIBC 206 L Ferritin 1004.3 H Alkaline Phosphatase Total Protein Procalcitonin Urine Appearance Turbid H Urine Protein 2+ H Urine Blood Large H Urine Nitrite Positive H Ur Leukocyte Esterase Large H Urine RBC >182 H Urine WBC >182 H Urine WBC Clumps Many H Ur Squamous Epith Cells Urine Bacteria Many H Urine Mucus Few H Urine Opiates Screen Ur Barbiturates Screen Levetiracetam Ur Amphetamines Screen Crossmatch See Detail 12/11/20 12/11/20 12/12/20 09:41 09:41 14:20 WBC RBC 2.50 L 2.76 L Hgb 7.7 L 8.4 L Hct 25.2 L 28.3 L MCV 100.5 H 102.2 H MCHC 30.5 L 29.8 L RDW 16.7 H 16.4 H Neutrophils # Monocytes # Sodium 133 L Potassium Chloride 113 H Carbon Dioxide 12 L BUN 26 H Creatinine Est GFR (CKD-EPI)AfAm Est GFR (CKD-EPI)NonAf BUN/Creatinine Ratio Glucose 109 H POC Glucose (mg/dL) Iron TIBC Ferritin Alkaline Phosphatase Total Protein Procalcitonin Urine Appearance Urine Protein Urine Blood Urine Nitrite Ur Leukocyte Esterase Urine RBC Urine WBC Urine WBC Clumps Ur Squamous Epith Cells Urine Bacteria Urine Mucus Urine Opiates Screen Ur Barbiturates Screen Levetiracetam Ur Amphetamines Screen Crossmatch 12/12/20 12/13/20 12/14/20 14:20 04:40 09:53 WBC RBC 2.51 L Hgb 7.6 L Hct 25.1 L MCV 100.1 H MCHC 30.4 L RDW 16.8 H Neutrophils # Monocytes # Sodium 136 L Potassium Chloride 115 H Carbon Dioxide 12 L BUN 20 H Creatinine Est GFR (CKD-EPI)AfAm Est GFR (CKD-EPI)NonAf BUN/Creatinine Ratio Glucose 183 H POC Glucose (mg/dL) 126 H Iron TIBC Ferritin Alkaline Phosphatase Total Protein Procalcitonin Urine Appearance Urine Protein Urine Blood Urine Nitrite Ur Leukocyte Esterase Urine RBC Urine WBC Urine WBC Clumps Ur Squamous Epith Cells Urine Bacteria Urine Mucus Urine Opiates Screen Ur Barbiturates Screen Levetiracetam Ur Amphetamines Screen Crossmatch 12/14/20 12/14/20 12/15/20 21:56 21:56 04:45 WBC 11.6 H RBC 2.67 L 2.63 L Hgb 8.3 L 8.0 L Hct 27.4 L 26.5 L MCV 102.4 H 100.7 H MCHC 30.2 L 30.3 L RDW 16.3 H 16.4 H Neutrophils # 8.7 H Monocytes # Sodium 136 L Potassium Chloride 111 H Carbon Dioxide 17 L BUN Creatinine 1.19 H Est GFR (CKD-EPI)AfAm Est GFR (CKD-EPI)NonAf BUN/Creatinine Ratio Glucose 129 H POC Glucose (mg/dL) Iron TIBC Ferritin Alkaline Phosphatase Total Protein Procalcitonin Urine Appearance Urine Protein Urine Blood Urine Nitrite Ur Leukocyte Esterase Urine RBC Urine WBC Urine WBC Clumps Ur Squamous Epith Cells Urine Bacteria Urine Mucus Urine Opiates Screen Ur Barbiturates Screen Levetiracetam Ur Amphetamines Screen Crossmatch 12/15/20 12/15/20 12/16/20 04:45 04:45 10:55 WBC RBC Hgb Hct MCV MCHC RDW Neutrophils # Monocytes # Sodium 133 L Potassium Chloride Carbon Dioxide 15.9 L BUN Creatinine Est GFR (CKD-EPI)AfAm 39.6 L Est GFR (CKD-EPI)NonAf 34.2 L BUN/Creatinine Ratio 11.43 L Glucose POC Glucose (mg/dL) 110 H Iron TIBC Ferritin Alkaline Phosphatase Total Protein Procalcitonin Urine Appearance Urine Protein Urine Blood Urine Nitrite Ur Leukocyte Esterase Urine RBC Urine WBC Urine WBC Clumps Ur Squamous Epith Cells Urine Bacteria Urine Mucus Urine Opiates Screen Ur Barbiturates Screen Levetiracetam 94.5 H Ur Amphetamines Screen Crossmatch 12/16/20 11:17 WBC RBC Hgb Hct MCV MCHC RDW Neutrophils # Monocytes # Sodium Potassium Chloride Carbon Dioxide BUN Creatinine Est GFR (CKD-EPI)AfAm Est GFR (CKD-EPI)NonAf BUN/Creatinine Ratio Glucose POC Glucose (mg/dL) 110 H Iron TIBC Ferritin Alkaline Phosphatase Total Protein Procalcitonin Urine Appearance Urine Protein Urine Blood Urine Nitrite Ur Leukocyte Esterase Urine RBC Urine WBC Urine WBC Clumps Ur Squamous Epith Cells Urine Bacteria Urine Mucus Urine Opiates Screen Ur Barbiturates Screen Levetiracetam Ur Amphetamines Screen Crossmatch - Diagnostic Findings Chest x-ray: image reviewed Assessment and Plan Plan: 1 Status epilepticus, exact cause is uncertain. Rule out herpes encephalitis. Patient's temperature is normal, white cells are normal. We will empirically start acyclovir. 2 Altered mental status likely due to toxic metabolic encephalopathy (has acute on chronic kidney insuffiency, electrolyte imbalance) and due to underlying U TI-- 3 History of Parkinson's disease 4 Dementia possibly due to multifactorial (Parkionson's and vascular) 5 Reported Seizure disorder 6 Acute on chronic kidney insufficiency 7 Recurrent UTI and the patient has been infected with a ESBL producing E. coli and Proteus and the patient has been initially on IV Invanz and currently she is on IV Fortaz. No Arroyo catheter for now. 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 He was concern of her ability to protect her airway. At that point the patient was immediately intubated and placed on a mechanical ventilator. She is currently she is on assist control mode at the rate of 20 with tidal volume of 400 and FiO2 of 100 and PEEP of 5. Follow-up blood gases are still pending for now. Chest x-ray will be done. Meanwhile, we'll continue the combination of Keppra and Dilantin a monitored antiepileptic level. The patient will need continuous EEG monitoring. We'll repeat an EKG here in our hospital and will make patient for this patient to get transferred to another hospital, likely the one in the care of home. Meanwhile, the patient was started on propofol and currently propofol is running at 20 mcg/kg per minute. Clinically, no overt signs of seizure activity. Orogastric tube was inserted. Arterial line will be established. We'll continue the IV antibiotics for now. Will monitor hemodynamics. We'll continue to follow.CAT scan of the brain has been done and it was negative for any acute abnormalities.Neurology has requested a lumbar puncture. I'm inclined to do the lumbar puncture here in our facility as long as the patient will not get transferred to the otherwise she is better off having the lumbar puncture done at the transferring facility. Meanwhile, continue the acyclovir for now..
[2020-12-16 12:29] LABS: ABG Base Excess -14.3 mmol/L; ABG HCO3 14 mmol/L (21-25); ABG Oxygen Saturation 99.6 % (94-97); ABG PCO2 36 mmHg (35-45); ABG PO2 376 mmHg (83-108); ABG TCO2 15 mmol/L (19-24); Allen Test Performed? Yes
--- NOTE | 2020-12-16 12:31 | XR ---
EXAMINATION TYPE: XR chest 1V portable DATE OF EXAM: 12/16/2020 COMPARISON: 12/08/2020 HISTORY: ET tube placement TECHNIQUE: Single frontal view of the chest is obtained. FINDINGS: ET tube is approximately 1.9 cm above sukumar. Bilateral infiltrate and small effusion grea ter on the right. Heart size stable. There is a lead overlying the vertebral column. NG tube seen cou rsing the left upper quadrant likely within the gastric fundus. There are postsurgical change suspect ed in the left upper quadrant. No sizable pneumothorax. IMPRESSION: 1. ET tube approximately 1.9 cm above sukumar. 2. Bilateral infiltrate and small effusion.
[2020-12-16 12:32] LABS: ABG PH 7.19 (7.35-7.45)
[2020-12-16] MEDS ORDERED: SODIUM BICARB 8.4% 50 ML SYR (1 MEQ/ML) IV STA (12:50)
[2020-12-16 13:53] VITALS: BP 113/57; PULSE 87; RESP 24; TEMP 97
--- NOTE | 2020-12-16 14:53 | P.PCN ---
Date of Procedure: 12/16/20 Preoperative Diagnosis: Status epilepticus Postoperative Diagnosis: Status epilepticus Procedure(s) Performed: 1 intubation 2 insertion of an arterial line Anesthesia: MAC Surgeon: Bita Marsh Nurse Private Duty #1: Martha Robertson Estimated Blood Loss (ml): 0 Pathology: other Condition: critical Disposition: ICU Operative Findings: Intubation Indication: Respiratory compromise. A time-out was completed verifying correct patient, procedure, site, positioning, and implant(s) or special equipment if applicable. The patient was positioned appropriately and a #8 endotracheal tube was placed under direct laryngoscopy. The tube was anchored at 22 cm at the teeth. Correct placement was confirmed by presence of bilateral breath sounds without air sounds in the abdomen on auscultation. An end-tidal CO2 monitor was also used to confirm tracheal placement of the ET tube. A chest x-ray was ordered to assess for pneumothorax and verify endotracheal tube placement. The patient tolerated the procedure well and there were no complications. Arterial line Indication: Hemodynamic monitoring. A time-out was completed verifying correct patient, procedure, site, positioning, and implant(s) or special equipment if applicable. Marco Antonio s test was performed to ensure adequate perfusion. The patients left wrist was prepped and draped in sterile fashion. 1% Lidocaine was used to anesthetize the area. An 18G Arrow arterial line was introduced into the radial artery. The catheter was threaded over the guide wire and the needle was removed with appropriate pulsatile blood return. Blood loss was minimal. The catheter was then sutured in place to the skin and a sterile dressing applied. Perfusion to the extremity distal to the point of catheter insertion was checked and found to be adequate. The patient tolerated the procedure well and there were no complications.
--- NOTE | 2020-12-16 15:53 | PN ---
PROGRESS NOTE DATE OF SERVICE: 12/16/2020 REASON FOR FOLLOWUP: ESBL urinary tract infection. INTERVAL HISTORY: Patient did have another seizure activity and ( ) seizure epilepticus. The patient was transferred to the ICU. The patient got intubated to protect her airway, is hemodynamically stable. No vomiting, diarrhea has been reported by nursing staff. The patient was not able to provide any history. PHYSICAL EXAMINATION: Blood pressure 140/( ), pulse of 79, temperature 98, 99% on 100% ( ). General description is an elderly female lying in bed no distress. Respiratory system: Coarse breath sounds bilaterally. Abdomen: Soft, no tenderness. Extremities: No edema of the feet. LABS: The patient did have an ABG, no CBC or BP has been . DIAGNOSTIC IMPRESSION AND PLAN: Patient with ESBL E coli urinary tract infection. This patient subsequently did have an episode of seizure activity. Did have history of seizure and concern for possible status epilepticus and to be transferred to [facility]. Patient covered with to continue for now. possible , clinically not behaving so we are waiting for the culture to be completed and the patient started on acyclovir. Continue supportive care. MMODL / IJN: [id number] /
[2020-12-16] MEDS ORDERED: levETIRAcetam IV 500 MG in SODIUM CHLORIDE 0.9% 100 ML IVPB SCH (21:00)
[2020-12-16] MEDS ORDERED: CEFTAZIDIME/AVIBACTAM 0.94 GM in SODIUM CHLORIDE 0.9% 50 ML IVPB SCH (21:00)
--- NOTE | 2020-12-16 21:22 | P.DS ---
Providers Date of admission: 12/08/20 16:24 Attending physician: Britton Orourke MD Consults: 12/08/20 16:23 Consult Physician Routine Consulting Provider: Juanito Glover Consult Reason/Comments: ams Do you want consulting provider notified?: Yes 12/10/20 10:49 Consult Physician Routine Consulting Provider: Cathleen Lynn Consult Reason/Comments: possible GI bleed Do you want consulting provider notified?: Yes 12/10/20 14:23 Consult Physician Urgent Consulting Provider: Mahad Mix Consult Reason/Comments: ESBL organism in UTI Do you want consulting provider notified?: Yes 12/14/20 10:01 Consult Physician Urgent Consulting Provider: Be Sung Consult Reason/Comments: seizure Do you want consulting provider notified?: Yes 12/15/20 10:47 Consult to Anesthesia Stat Consulting Provider: Anesthesia,Services Consult Reason/Comments: Focal seizure, altered mental status, rule out herpes encephalitis 12/16/20 11:34 Consult Physician Urgent Consulting Provider: Bita Marsh Consult Reason/Comments: ICU management Do you want consulting provider notified?: Already Contacted Primary care physician: [facility] Course: Diagnoses: Status epilepticus Altered mental status, most likely metabolic encephalopathy, complicated by seizure on 12/14 and in status epilepticus on 12/16 Breakthrough seizure Acute urinary tract infection secondary to ESBL Proteus and E. coli. Acute kidney injury with hyperkalemia, improving Anemia of chronic disease status post one unit of blood transfusion. 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 dementia History of GERD hypertension memory impairment osteoarthritis History of seizure disorder hypothyroidism chronic hypoxic respiratory failure on 3 liters of oxygen per minute frequent UTI History of nephrolithiasis History of Hydronephrosis anemia gout History of bowel obstruction status post ileostomy degenerative disc disease and chronic low back pain, restless leg syndrome History of sacral wound Hospital course: This is a pleasant 85 years old female with past medical history of atrial fibrillation, heart failure, CVA/TIA with right hemiparesis, Parkinson disease with resting tremor, dementia, GERD, hypertension, memory impairment, osteoarthritis, seizure disorder, hypothyroidism, chronic hypoxic respiratory failure on 3 liters of oxygen per minute, frequent UTI, nephrolithiasis. Hydronephrosis, anemia, gout, bowel obstruction status post ileostomy, degenerative disc disease and chronic low back pain, restless leg syndrome, sacral wound Patient was transferred from [facility] for altered mental status found to have acute urinary tract infection secondary to ESBL E. coli and Proteus. Patient has been evaluated by neurology service and infectious disease team since admission and monitored closely. Based on Invanz shows improved gradually however on she developed seizure this was controlled with Ativan IV. She is on home dose of Keppra 500 mg twice a day, it was increased to 1000 twice a day EEG show epileptiform discharge. And today patient developed several tonic or clonic seizures witnessed by neurologist at bedside and status epilepticus is diagnosed. She received Ativan and Dilantin IV, Immediately patient was moved to the intensive care unit with no more seizure activity noted and she was immediately intubated and started on a propofol. The registered recommended to transfer the patient to [facility] I discussed the case with Dr. Sanchez, currently accepted the patient. I talked to the daughter Ms. Pink at [phone]. Her treat with process of intubation and confirmed to me she is full code and she agrees to transfer the patient to [facility] Patient is medically stable to be transferred in guarded prognosis Physical exam -Gen: patient is intubated and sedated. CVS: S1-S2, RRR, no murmur Lungs: B/L CTA, no wheezing Abdomen: soft, no distention, no tenderness, positive bowel sounds Extremity: no leg edema or induration -Neuro: Patient intubated and sedated. Pupils are equal and reactive to light. Neurological examination is limited. No more seizure activity is noted Time spent more than 35 minutes Patient Condition at Discharge: Serious Plan - Discharge Summary Discharge Rx Participant: No New Discharge Prescriptions: Continue Melatonin 3 mg PO HS Sertraline [Zoloft] 100 mg PO HS Aspirin 81 mg PO HS Levothyroxine Sodium [Synthroid] 50 mcg PO HS Lactulose 20 gm PO BID rOPINIRole HCL [Requip] 0.5 mg PO TID@0700,1300,1900 Metoprolol Tartrate [Lopressor] 12.5 mg PO BID Pantoprazole Sodium [Protonix] 40 mg PO DAILY Primidone [Mysoline] 25 mg PO HS Baclofen [Lioresal] 10 mg PO TID PRN PRN Reason: Mild Spasms amLODIPine [Norvasc] 10 mg PO DAILY tab Healthshake 1 dose PO BID Acetaminophen [Tylenol Arthritis] 650 mg PO TID@0500,1300,2100 Sodium Chloride [[place]] 1 spray EA NOSTRIL TID@0700,1300,1900 levETIRAcetam [Keppra] 500 mg PO BID Budesonide [Pulmicort] 0.5 mg INHALATION RT-BID ml Ipratropium-Albuterol Nebulize [Duoneb 0.5 mg-3 mg/3 ml Soln] 3 ml INHALATION RT-QID PRN PRN Reason: Shortness Of Breath Cyanocobalamin [Vitamin B-12] 500 mcg PO HS Folic Acid 0.4 mg PO HS allopurinoL [Zyloprim] 200 mg PO DAILY Ferrous Sulfate [Iron (65 MG Elemental)] 325 mg PO DAILY 30 Days #30 tab Carbidopa/Levodopa [Carbidopa-Levo ER 25-100 Tab] 1 tab PO TID@0700,1300,1900 Mag Hydrox/Aluminum Hyd/Simeth [Mylanta Maximum Strength Liq] 30 ml PO Q4H PRN PRN Reason: Indigestion Sertraline [Zoloft] 25 mg PO HS Simethicone 80 mg PO TID@0700,1100,1700 Changed traMADol HCL 50 mg PO Q8H PRN #6 tab PRN Reason: Pain Discontinued HYDROcodone/APAP 5-325MG [[place] 5-325] 1 tab PO Q8H PRN #10 tab PRN Reason: Pain Discharge Medication List Aspirin 81 mg PO HS 09/18/18 [History] Levothyroxine Sodium [Synthroid] 50 mcg PO HS 09/18/18 [History] Melatonin 3 mg PO HS 09/18/18 [History] Sertraline [Zoloft] 100 mg PO HS 09/18/18 [History] Lactulose 20 gm PO BID 06/08/19 [History] Metoprolol Tartrate [Lopressor] 12.5 mg PO BID 01/12/20 [History] rOPINIRole HCL [Requip] 0.5 mg PO TID@0700,1300,1900 01/12/20 [History] Pantoprazole Sodium [Protonix] 40 mg PO DAILY 08/29/20 [History] levETIRAcetam [Keppra] 500 mg PO BID 08/29/20 [History] Budesonide [Pulmicort] 0.5 mg INHALATION RT-BID ml 09/07/20 [Rx] Ipratropium-Albuterol Nebulize [Duoneb 0.5 mg-3 mg/3 ml Soln] 3 ml INHALATION RT-QID PRN 10/05/20 [History] Baclofen [Lioresal] 10 mg PO TID PRN 10/13/20 [History] Cyanocobalamin [Vitamin B-12] 500 mcg PO HS 10/13/20 [History] Folic Acid 0.4 mg PO HS 10/13/20 [History] Primidone [Mysoline] 25 mg PO HS 10/13/20 [History] allopurinoL [Zyloprim] 200 mg PO DAILY 10/13/20 [History] Ferrous Sulfate [Iron (65 MG Elemental)] 325 mg PO DAILY 30 Days #30 tab 10/19/20 [Rx] amLODIPine [Norvasc] 10 mg PO DAILY tab 10/19/20 [Rx] Acetaminophen [Tylenol Arthritis] 650 mg PO TID@0500,1300,2100 12/08/20 [History] Carbidopa/Levodopa [Carbidopa-Levo ER 25-100 Tab] 1 tab PO TID@0700,1300,1900 12/08/20 [History] Healthshake 1 dose PO BID 12/08/20 [History] Mag Hydrox/Aluminum Hyd/Simeth [Mylanta Maximum Strength Liq] 30 ml PO Q4H PRN 12/08/20 [History] Sertraline [Zoloft] 25 mg PO HS 12/08/20 [History] Simethicone 80 mg PO TID@0700,1100,1700 12/08/20 [History] Sodium Chloride [[place]] 1 spray EA NOSTRIL TID@0700,1300,1900 12/08/20 [History] traMADol HCL 50 mg PO Q8H PRN #6 tab 12/13/20 [Rx] Follow up Appointment(s)/Referral(s): Miguel Newton MD [Primary Care Provider] - 1-2 days Activity/Diet/Wound Care/Special Instructions: Resume previous diet Activities restricted till you see your doctor Discharge Disposition: TRANSFER TO SNF/ECF
[2020-12-17] MEDS ORDERED: ACYCLOVIR SODIUM 1,000 MG in SODIUM CHLORIDE 0.9% 250 ML IVPB SCH (02:00)
== END 2020-12-16 13:57 | disposition short-term general hospital (02) | DRG 689 ==
LOC: EC 14:13 → 5NMEDONC 16:24 → 2SICU 12-16 11:17
PROVIDERS: ADMIT Internal Medicine; ATTEND Internal Medicine
PROC: 5A1935Z Respiratory Ventilation, Less than 24 Consecutive Hours (ICD-10-PCS; principal; 2020-12-08)
PROC: 0BH17EZ Insertion of Endotracheal Airway into Trachea, Via Natural or Artificial Opening (ICD-10-PCS; 2020-12-08)
DX: N13.6 Pyonephrosis (principal); G92 Toxic encephalopathy; R65.20 Severe sepsis without septic shock; Z16.24 Resistance to multiple antibiotics; Z16.12 Extended spectrum beta lactamase (ESBL) resistance; I69.351 Hemiplegia and hemiparesis following cerebral infarction affecting right dominant side; E87.1 Hypo-osmolality and hyponatremia; J96.11 Chronic respiratory failure with hypoxia; I13.0 Hypertensive heart and chronic kidney disease with heart failure and stage 1 through stage 4 chronic kidney disease, or unspecified chronic kidney disease; K56.609 Unspecified intestinal obstruction, unspecified as to partial versus complete obstruction; K21.9 Gastro-esophageal reflux disease without esophagitis; N17.9 Acute kidney failure, unspecified; M54.5 Low back pain; M19.90 Unspecified osteoarthritis, unspecified site; E03.9 Hypothyroidism, unspecified; G89.29 Other chronic pain; G25.81 Restless legs syndrome; N18.30 Chronic kidney disease, stage 3 unspecified; G20 Parkinson's disease; F02.80 Dementia in other diseases classified elsewhere, unspecified severity, without behavioral disturbance, psychotic disturbance, mood disturbance, and anxiety; F39 Unspecified mood [affective] disorder; F41.9 Anxiety disorder, unspecified; E87.5 Hyperkalemia; B96.20 Unspecified Escherichia coli [E. coli] as the cause of diseases classified elsewhere; B96.4 Proteus (mirabilis) (morganii) as the cause of diseases classified elsewhere; I50.9 Heart failure, unspecified; M10.9 Gout, unspecified; E78.5 Hyperlipidemia, unspecified; E86.1 Hypovolemia; G40.401 Other generalized epilepsy and epileptic syndromes, not intractable, with status epilepticus; I48.91 Unspecified atrial fibrillation; Z93.3 Colostomy status; Z93.2 Ileostomy status; Z87.442 Personal history of urinary calculi; Z87.440 Personal history of urinary (tract) infections; Z86.14 Personal history of Methicillin resistant Staphylococcus aureus infection; Z82.5 Family history of asthma and other chronic lower respiratory diseases; Z80.41 Family history of malignant neoplasm of ovary; Z80.1 Family history of malignant neoplasm of trachea, bronchus and lung; Z79.899 Other long term (current) drug therapy; Z79.890 Hormone replacement therapy; Z79.82 Long term (current) use of aspirin
CPT/HCPCS: 36410; 36415; 70450; 71045; 71046; 76770; 76937; 80048; 80053; 80177; 80185; 80306; 81001; 82272; 82607; 82728; 82746; 82805; 83540; 83550; 83735; 84145; 84484; 85025; 85027; 85610; 85730; 86850; 86900; 86901; 86920; 87077; 87086; 87186; 93005; 94002; 94760; 95713; 95816; 99285

== ENCOUNTER 2021-01-04 11:08 | Emergency (ER) | payer MEDICARE, OTHER ==
[2021-01-04 11:25] VITALS: TEMP 98
[2021-01-04 11:31] LABS: Glucose,Whole Blood 119 mg/dL (75-99)
[2021-01-04] MEDS ORDERED: SODIUM CHLORIDE 0.9% 1,000 ML IV STA ×2 (11:37→13:00)
[2021-01-04] MEDS ORDERED: levETIRAcetam IV 1,000 MG in SALINE 1 100ML.BAG IVPB STA (11:37)
[2021-01-04] MEDS ORDERED: LORazepam 2 MG/ML INJ IV STA (11:41)
[2021-01-04] MEDS ORDERED: levETIRAcetam IV 1,500 MG in SALINE 1 100ML.BAG IVPB STA (11:42)
[2021-01-04 11:58] LABS: Basophils # (A) 0.1 k/uL (0-0.2); Basophils % (A) 1 %; Eosinophils # (A) 0.5 k/uL (0-0.7); Eosinophils % (A) 7 %; HCT 33.4 % (34.0-46.0); HGB 10.4 gm/dL (11.4-16.0); Hypochromasia Marked; Lymphocytes # (A) 2.3 k/uL (1.0-4.8); Lymphocytes % (A) 29 %; MCH 30.9 pg (25.0-35.0); MCHC 31.2 g/dL (31.0-37.0); MCV 99.3 fL (80.0-100.0); Macrocytosis Slight; Mean Platelet Volume 9.3; Monocytes # (A) 0.5 k/uL (0-1.0); Monocytes % (A) 7 %; Neutrophils # (A) 4.2 k/uL (1.3-7.7); Neutrophils % (A) 54 %; Platelet Count 335 k/uL (150-450); RBC 3.37 m/uL (3.80-5.40); RDW 15.8 % (11.5-15.5); WBC 7.8 k/uL (3.8-10.6)
[2021-01-04] MEDS ORDERED: LABETALOL 5 MG/ML VIAL MDV IVP STA (12:01)
[2021-01-04 12:07] LABS: ALT 17 U/L (4-34); AST 39 U/L (14-36); African American GFR (CKD) >90 (>60 ml/min/1.73 sqM); Albumin 3.4 g/dL (3.5-5.0); Alkaline Phosphatase 133 U/L (38-126); Anion Gap 11 mmol/L; Blood Urea Nitrogen 9 mg/dL (7-17); Calcium 9.2 mg/dL (8.4-10.2); Carbon Dioxide 24 mmol/L (22-30); Chloride 105 mmol/L (98-107); Glucose 122 mg/dL (74-99); Magnesium 1.2 mg/dL (1.6-2.3); Non-African American GFR(CKD) 82 (>60 ml/min/1.73 sqM); Potassium 3.9 mmol/L (3.5-5.1); Sodium 140 mmol/L (137-145); Total Bilirubin 0.2 mg/dL (0.2-1.3); Total Protein 7.8 g/dL (6.3-8.2)
--- NOTE | 2021-01-04 12:19 | CT ---
EXAMINATION TYPE: CT brain wo con DATE OF EXAM: 01/04/2021 COMPARISON: 12/16/2020 HISTORY: new seizure CT DLP: 2221.4 mGycm Automated exposure control for dose reduction was used. FINDINGS: Moderate generalized degenerative change. Diffuse nonspecific white matter changes most typical of re mote white matter ischemia. No mass effect or midline shift. No acute hemorrhage. Orbits are symmetric. Changes of right mastoiditis are noted. Chronic sphenoidal sinusitis noted. Jamie varium intact. IMPRESSION: 1. Degenerative and nonspecific white matter change with no acute hemorrhage or mass effect. 2. Correlate for right mastoiditis.
[2021-01-04] MEDS ORDERED: MAGNESIUM SULFATE-D5W PMX 1 GM in DEXTROSE/WATER 1 100ML.BAG IVPB SCH (12:30)
[2021-01-04] MEDS ORDERED: PROPOFOL 10 MG/ML 20 ML VIAL IV ONE (13:07)
[2021-01-04] MEDS ORDERED: MIDAZOLAM 1 MG/ML 5 ML VIAL IV STA (13:07)
[2021-01-04] MEDS ORDERED: LACOSAMIDE IV 200 MG in SODIUM CHLORIDE 0.9% 50 ML IVPB STA (13:10)
[2021-01-04] MEDS ORDERED: PHENYTOIN SODIUM INJ 500 MG in SODIUM CHLORIDE 0.9% 100 ML IVPB STA (13:13)
--- NOTE | 2021-01-04 13:15 | ED ---
General Adult HPI - General Chief complaint: Seizure Stated complaint: Seizure Time Seen by Provider: 01/04/21 11:29 Source: EMS, RN notes reviewed, old records reviewed Mode of arrival: EMS Limitations: altered mental status, physical limitation - History of Present Illness Initial comments: 85-year-old female presented from detention with altered mental status, seizure-like activity. Patient is unable to contribute at all to the history. She is altered, rightward gaze, right head deviation and right sided seizure activity. She was recently diagnosed with seizures. Baseline is alert and oriented 3. Seizure-like activity and began just prior to EMS call. Vital signs were stable during transport. - Related Data Home Medications Medication Instructions Recorded Confirmed Aspirin 81 mg PO DAILY 09/18/18 01/04/21 Melatonin 3 mg PO HS PRN 09/18/18 01/04/21 Lactulose 20 gm PO Q12H PRN 06/08/19 01/04/21 Metoprolol Tartrate [Lopressor] 25 mg PO TID 01/12/20 01/04/21 rOPINIRole HCL [Requip] 0.5 mg PO TID@0700,1300,1900 01/12/20 01/04/21 Pantoprazole Sodium [Protonix] 40 mg PO BID@0700,1900 08/29/20 01/04/21 levETIRAcetam [Keppra] 500 mg PO BID@0700,1900 08/29/20 01/04/21 Ipratropium-Albuterol Nebulize 3 ml INHALATION RT-QID PRN 10/05/20 01/04/21 [Duoneb 0.5 mg-3 mg/3 ml Soln] Baclofen [Lioresal] 10 mg PO TID PRN 10/13/20 01/04/21 Cyanocobalamin [Vitamin B-12] 500 mcg PO DAILY 10/13/20 01/04/21 Primidone [Mysoline] 25 mg PO HS 10/13/20 01/04/21 allopurinoL [Zyloprim] 200 mg PO DAILY 10/13/20 01/04/21 Acetaminophen [Tylenol Arthritis] 650 mg PO QID@07,13,19,23 12/08/20 01/04/21 Carbidopa/Levodopa [Carbidopa-Levo 1 tab PO TID@0700,1300,1900 12/08/20 01/04/21 ER 25-100 Tab] Budesonide [Pulmicort Flexhaler] 2 puff INHALATION RT-BID 01/04/21 01/04/21 Levothyroxine Sodium [Synthroid] 100 mcg PO DAILY 01/04/21 01/04/21 Phenytoin Sodium Extended 100 mg PO TID@0700,1300,1900 01/04/21 01/04/21 [Dilantin] Sucralfate [Carafate] 1 gm PO ACHS 01/04/21 01/04/21 Previous Rx's Medication Instructions Recorded Ferrous Sulfate [Iron (65 MG 325 mg PO DAILY 30 Days #30 tab 10/19/20 Elemental)] Allergies Allergy/AdvReac Type Severity Reaction Status Date / Time amoxicillin [From Augmentin] Allergy Unknown Verified 01/04/21 12:27 clavulanic acid Allergy Unknown Verified 01/04/21 12:27 [From Augmentin] codeine Allergy Unknown Verified 01/04/21 12:27 Review of Systems ROS Statement: Those systems with pertinent positive or pertinent negative responses have been documented in the HPI. ROS Other: All systems not noted in ROS Statement are negative. Past Medical History Past Medical History: Unable to Obtain, Atrial Fibrillation, Heart Failure, CVA/TIA, Dementia, GERD/Reflux, Hypertension, Memory Impairment, Musculoskeletal Disorder, Neurologic Disorder, Osteoarthritis (OA), Pneumonia, Respiratory Disorder, Seizure Disorder, Thyroid Disorder Additional Past Medical History / Comment(s): Pt recently admitted to [facility] [place] on 10/05/20 with loss of consciousness, acute renal failure and generalized deconditioning. Other Hx: O2 at 3L/NC ATC, R side pleural effusion/pneumonia, CVA wtih R sided weakness, parkinsons with increased t remors, metabolic encephalopathy, frequent UTIs, nephrolithiasis, pyelonephritis, hydronephrosis, anemia, gout, bowel blockage with ileostomy, last seizure many years ago, chronic low back pain/DDD, RLS, hypothyroid, sacral wound History of Any Multi-Drug Resistant Organisms: ESBL, MRSA Date of last positivie culture/infection: 12/10/20 ESBL E.Coli; MRSA 2008 MDRO Source:: ESBL Urine; MRSA Stool Past Surgical History: Unable to Obtain, Back Surgery, Bowel Resection, Cholecystectomy Additional Past Surgical History / Comment(s): Lumbar back surgeries x4, bowel resection/ileostomy, colonoscopy, cysto/bilateral ureteral stents. Past Anesthesia/Blood Transfusion Reactions: No Reported Reaction Past Psychological History: Anxiety Smoking Status: Never smoker Past Alcohol Use History: Unable to Obtain Past Drug Use History: Unable to Obtain - Past Family History Father Family Medical History: Cancer Additional Family Medical History / Comment(s): lung CA Mother Family Medical History: Cancer Additional Family Medical History / Comment(s): Ovarian cancer Sister(s) Additional Family Medical History / Comment(s): emphysema General Exam Limitations: altered mental status, physical limitation General appearance: obtunded, in distress Head exam: Present: atraumatic, normocephalic Eye exam: Present: normal appearance, PERRL (Pulls are 5 mm bilaterally, rig htward gaze) Neck exam: Present: normal inspection Respiratory exam: Present: other (And has drooling, gag reflex is present but minimal, she does have spontaneous respirations.). Absent: respiratory distress Cardiovascular Exam: Present: regular rate, normal rhythm GI/Abdominal exam: Present: soft. Absent: distended, tenderness, guarding Extremities exam: Present: normal capillary refill. Absent: pedal edema Neurological exam: Present: motor sensory deficit (Patient has focal seizure activity on the right side with right-sided gaze. She is not following commands.). Absent: oriented X3 Skin exam: Present: warm, dry, intact Course Vital Signs 01/04/21 01/04/21 01/04/21 11:17 12:05 13:31 Temperature 98 F Pulse Rate 100 110 H 81 Respiratory 16 20 20 Rate Blood Pressure 205/108 102/77 86/43 O2 Sat by Pulse 96 100 99 Oximetry 01/04/21 14:19 Temperature Pulse Rate 83 Respiratory 18 Rate Blood Pressure 111/58 O2 Sat by Pulse 97 Oximetry - Reevaluation(s) Reevaluation #1: 01/04/21 1145 H and taken immediately to computed tomography scan after initial antiepileptic medications are ordered. She had received 15 mg of Versed by paramedics she received an additional 2 mg of Ativan, she is given 1500 mg of keppra. EKG Findings - EKG Comments: EKG Findings:: EKG: Sinus rhythm with sinus arrhythmia, low voltage, rate of 83, FL interval 182, QRS duration 72, QTC 495. Procedures - Intubation Sedative: Versed Mg Given: 5 Paralytic: Succinylcholine Mg Given: 100 Laryngoscope: Hamilton Size: 3 Assist Device Used: Bougie ET Tube Size: 7.5 ET Tube Uncuffed: No Tube Secured Depth (cm): 21 Tube Secured Location: lips Tube Placement Confirmation: visualized tube passing through cords, equal breath sounds bilaterally, no breath sounds over epigastrium, confirmation by c apnometry Patient Tolerated Procedure: well Intubation Complications: none Medical Decision Making - Medical Decision Making 85-year-old female with altered mental status, right-sided seizure, patient is in status epilepticus, she had been seizing during transport and continued to seize emergency department. She was given additional doses of Versed, Ativan, Keppra, and ultimately intubated for airway protection in status epilepticus. She started on propofol drip. CT had been performed which was negative for intracranial hemorrhage. Chest x-ray confirming bolus and tracheal and oral gas tric tube placement. I review the medical records this patient did have a status epilepticus and r ecent admission which did require intubation at that time. She was discharged to the detention. Also of note he was indicated in the neurology notes that the patient had focal seizure as well as generalized tonic-clonic seizure activity. Did discuss case with Dr. Belen lazo for neurology who recommends the patient be transferred for status epilepticus to an institution where continuous EEG is available. Did recommend both Dilantin and Vimpat. These medications have been ordered. Discussed case with ER physician from [facility]. They will except transfer, accepting physician Dr. Mc. - Lab Data Result diagrams: 01/04/21 11:39 01/04/21 11:39 Lab Results 01/04/21 01/04/21 01/04/21 Range/Units 11:24 11:39 11:39 WBC 7.8 (3.8-10.6) k/uL RBC 3.37 L (3.80-5.40) m/uL Hgb 10.4 L (11.4-16.0) gm/dL Hct 33.4 L (34.0-46.0) % MCV 99.3 (80.0-100.0) fL MCH 30.9 (25.0-35.0) pg MCHC 31.2 (31.0-37.0) g/dL RDW 15.8 H (11.5-15.5) % Plt Count 335 (150-450) k/uL MPV 9.3 Neutrophils % 54 % Lymphocytes % 29 % Monocytes % 7 % Eosinophils % 7 % Basophils % 1 % Neutrophils # 4.2 (1.3-7.7) k/uL Lymphocytes # 2.3 (1.0-4.8) k/uL Monocytes # 0.5 (0-1.0) k/uL Eosinophils # 0.5 (0-0.7) k/uL Basophils # 0.1 (0-0.2) k/uL Hypochromasia Marked Macrocytosis Slight Sample Site ABG pH (7.35-7.45) ABG pCO2 (35-45) mmHg ABG pO2 (83-108) mmHg ABG HCO3 (21-25) mmol/L ABG Total CO2 (19-24) mmol/L ABG O2 Saturation (94-97) % ABG Base Excess mmol/L Marco Antonio Test FiO2 % Sodium 140 (137-145) mmol/L Potassium 3.9 (3.5-5.1) mmol/L Chloride 105 (98-107) mmol/L Carbon Dioxide 24 (22-30) mmol/L Anion Gap 11 mmol/L BUN 9 (7-17) mg/dL Creatinine 0.63 (0.52-1.04) mg/dL Est GFR (CKD-EPI)AfAm >90 (>60 ml/min/1.73 sqM) Est GFR (CKD-EPI)NonAf 82 (>60 ml/min/1.73 sqM) Glucose 122 H (74-99) mg/dL POC Glucose (mg/dL) 119 H (75-99) mg/dL POC Glu Parquetry Floor Layer ID Nat Kaur Calcium 9.2 (8.4-10.2) mg/dL Magnesium 1.2 L (1.6-2.3) mg/dL Total Bilirubin 0.2 (0.2-1.3) mg/dL AST 39 H (14-36) U/L ALT 17 (4-34) U/L Alkaline Phosphatase 133 H (38-126) U/L Total Protein 7.8 (6.3-8.2) g/dL Albumin 3.4 L (3.5-5.0) g/dL Phenytoin ug/mL 01/04/21 01/04/21 Range/Units 13:29 13:59 WBC (3.8-10.6) k/uL RBC (3.80-5.40) m/uL Hgb (11.4-16.0) gm/dL Hct (34.0-46.0) % MCV (80.0-100.0) fL MCH (25.0-35.0) pg MCHC (31.0-37.0) g/dL RDW (11.5-15.5) % Plt Count (150-450) k/uL MPV Neutrophils % % Lymphocytes % % Monocytes % % Eosinophils % % Basophils % % Neutrophils # (1.3-7.7) k/uL Lymphocytes # (1.0-4.8) k/uL Monocytes # (0-1.0) k/uL Eosinophils # (0-0.7) k/uL Basophils # (0-0.2) k/uL Hypochromasia Macrocytosis Sample Site lbrac ABG pH 7.25 L (7.35-7.45) ABG pCO2 66 H (35-45) mmHg ABG pO2 >400 H (83-108) mmHg ABG HCO3 29 H (21-25) mmol/L ABG Total CO2 31 H (19-24) mmol/L ABG O2 Saturation 100.0 H (94-97) % ABG Base Excess 1.2 mmol/L Marco Antonio Test Yes FiO2 100 % Sodium (137-145) mmol/L Potassium (3.5-5.1) mmol/L Chloride (98-107) mmol/L Carbon Dioxide (22-30) mmol/L Anion Gap mmol/L BUN (7-17) mg/dL Creatinine (0.52-1.04) mg/dL Est GFR (CKD-EPI)AfAm (>60 ml/min/1.73 sqM) Est GFR (CKD-EPI)NonAf (>60 ml/min/1.73 sqM) Glucose (74-99) mg/dL POC Glucose (mg/dL) (75-99) mg/dL POC Glu Parquetry Floor Layer ID Calcium (8.4-10.2) mg/dL Magnesium (1.6-2.3) mg/dL Total Bilirubin (0.2-1.3) mg/dL AST (14-36) U/L ALT (4-34) U/L Alkaline Phosphatase (38-126) U/L Total Protein (6.3-8.2) g/dL Albumin (3.5-5.0) g/dL Phenytoin <3.0 ug/mL Critical Care Time Critical Care Time: Yes Total Critical Care Time: 35 Disposition Clinical Impression: Altered mental status, Status epilepticus, Focal seizure Disposition: OTHER INSTITUTION NOT DEFINED Condition: Serious Instructions (If sedation given, give patient instructions): Seizure/Epilepsy Discharge Instructions & Follow-Up Is patient prescribed a controlled substance at d/c from ED?: No Referrals: Miguel Newton MD [Primary Care Provider] - 1-2 days Time of Disposition: 13:18 - Out of Hospital Transfer - Req. Specs Out of Hospital Transfer - Requested Specifics: Other Emergency Center ([facility])
[2021-01-04] MEDS ORDERED: SUCCINYLCHOLINE CHLORIDE VIAL 200 MG/10 ML VIAL IV STA (13:18)
--- NOTE | 2021-01-04 13:19 | XR ---
EXAMINATION TYPE: XR chest 1V DATE OF EXAM: 01/04/2021 COMPARISON: 12/16/2020 HISTORY: Shortness of breath TECHNIQUE: Single frontal view of the chest is obtained. FINDINGS: Bibasilar infiltrate and tiny effusion stable. Prominence the right paratracheal stripe li teddy partially related to rotation. Heart size normal. Cannot exclude underlying COPD. No sizable pne umothorax. ET and NG tube stable. Surgical changes in the abdomen noted. Diffuse osteopenia and arthr opathy shoulders. IMPRESSION: 1. Bilateral infiltrate and small effusion stable.
[2021-01-04] MEDS ORDERED: CEFEPIME 2 GM in SODIUM CHLORIDE 0.9% 100 ML IVPB STA (13:35)
[2021-01-04] MEDS ORDERED: SODIUM CHLORIDE 0.9% 500 ML 500 ML IV ONE (13:43)
[2021-01-04 14:03] LABS: ABG Base Excess 1.2 mmol/L; ABG HCO3 29 mmol/L (21-25); ABG PCO2 66 mmHg (35-45); ABG PH 7.25 (7.35-7.45); ABG PO2 >400 mmHg (83-108); ABG TCO2 31 mmol/L (19-24); Allen Test Performed? Yes
[2021-01-04 14:20] VITALS: BP 111/58; PULSE 83; RESP 18
--- NOTE | 2021-01-04 18:17 | P.PN ---
Progress Note - Text Progress Note Date: 01/04/21 I was notified by the ED attending that the patient has a right sided extremity jerking, right gaze deviation, right head deviation and was in status epilepticus which required her to be given to be 2mg Ativan, 5mg of Versed, Keppra 2500mg in total (per ED team) then requiring her to be intubated and on Propofol drip. I ordered Vimpat 200mg once and Dilantin 500mg once loading. 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 Of note she was last seen by Dr. Sung on 12/16/2020 and during that time she was in status epilepticus and she was transferred to [facility].
[2021-01-04] MEDS ORDERED: levETIRAcetam IV 1,000 MG in SALINE 1 100ML.BAG IVPB SCH (21:00)
[2021-01-04] MEDS ORDERED: LACOSAMIDE IV 50 MG in SODIUM CHLORIDE 0.9% 50 ML IVPB SCH (21:00)
[2021-01-05 08:12] LABS: Levetiracetam (Keppra) 83.2 ug/mL (3.0-60.0)
== END 2021-01-04 14:30 | disposition other institution (70) ==
LOC: EC 11:08
DX: R41.82 Altered mental status, unspecified (principal); G40.101 Localization-related (focal) (partial) symptomatic epilepsy and epileptic syndromes with simple partial seizures, not intractable, with status epilepticus; I11.0 Hypertensive heart disease with heart failure; I50.9 Heart failure, unspecified; I48.91 Unspecified atrial fibrillation; E07.9 Disorder of thyroid, unspecified; K21.9 Gastro-esophageal reflux disease without esophagitis; M19.90 Unspecified osteoarthritis, unspecified site; M10.9 Gout, unspecified; F41.9 Anxiety disorder, unspecified; F02.80 Dementia in other diseases classified elsewhere, unspecified severity, without behavioral disturbance, psychotic disturbance, mood disturbance, and anxiety; Z79.82 Long term (current) use of aspirin; Z88.1 Allergy status to other antibiotic agents; Z88.5 Allergy status to narcotic agent; Z86.73 Personal history of transient ischemic attack (TIA), and cerebral infarction without residual deficits; Z90.49 Acquired absence of other specified parts of digestive tract; Z79.899 Other long term (current) drug therapy; Z87.440 Personal history of urinary (tract) infections; Z87.442 Personal history of urinary calculi
CPT/HCPCS: 99291; 96365; 96375 ×2; 96361; 31500; 36415; 36600; 94002; 93005; 80186; 80053; 80177; 80185; 82805; 83735; 85025; 87070; 87205; 71045; 70450; J0330; J2060; J1165; J2250; J3475; J2704 ×2; C9254; J1953

== ENCOUNTER 2021-01-21 14:49 | Emergency (ER) | payer MEDICARE, OTHER ==
[2021-01-21] MEDS ORDERED: levETIRAcetam IV 1,000 MG in SALINE 1 100ML.BAG IVPB STA (14:59)
[2021-01-21] MEDS ORDERED: ETOMIDATE 2 MG/ML 10 ML VIAL IVP STA (15:04)
[2021-01-21] MEDS ORDERED: LORazepam 2 MG/ML INJ IV STA (15:06)
[2021-01-21 15:07] LABS: Glucose,Whole Blood 182 mg/dL (75-99)
[2021-01-21] MEDS ORDERED: ROCURONIUM 10 MG/ML (5 ML VIAL) IV STA (15:20)
[2021-01-21 15:22] LABS: Anisocytosis Slight; Basophils # (A) 0.1 k/uL (0-0.2); Basophils % (A) 0 %; Eosinophils # (A) 1.3 k/uL (0-0.7); Eosinophils % (A) 11 %; HCT 33.3 % (34.0-46.0); HGB 10.4 gm/dL (11.4-16.0); Hypochromasia Moderate; Lymphocytes # (A) 2.3 k/uL (1.0-4.8); Lymphocytes % (A) 20 %; MCH 31.5 pg (25.0-35.0); MCHC 31.2 g/dL (31.0-37.0); Macrocytosis Moderate; Mean Platelet Volume 8.7; Monocytes # (A) 0.6 k/uL (0-1.0); Monocytes % (A) 5 %; Neutrophils # (A) 7.3 k/uL (1.3-7.7); Neutrophils % (A) 62 %; Platelet Count 273 k/uL (150-450); RBC 3.29 m/uL (3.80-5.40); RDW 17.4 % (11.5-15.5); WBC 11.7 k/uL (3.8-10.6)
[2021-01-21] MEDS ORDERED: NOREPINEPHRINE 32 MG in SODIUM CHLORIDE 0.9% 218 ML IV ONE (15:29)
[2021-01-21] MEDS ORDERED: SODIUM CHLORIDE 0.9% 1,000 ML IV ONE (15:29)
[2021-01-21] MEDS ORDERED: VANCOMYCIN IV PER PHARMACY 1 EACH MISC MISCELLANE PRN (15:37)
--- NOTE | 2021-01-21 15:38 | XR ---
EXAMINATION TYPE: XR chest 1V portable DATE OF EXAM: 01/21/2021 COMPARISON: Chest x-ray 01/04/2021 HISTORY: Intubated TECHNIQUE: Single frontal view of the chest is obtained. FINDINGS: Endotracheal tube is superimposed over the tracheal air column approximately 8 mm from the level of the sukumar. There is no evident pneumothorax. Patient is rotated and exam is expiratory. Pr ominence of pulmonary artery suggests pulmonary hypertension. Aorta is dense. Heart size is stable. P atchy basilar density is noted. There are overlying artifacts. G-tube is present coiled within the st omach. Surgical clips present left upper quadrant. Degenerative disc changes are present visualized s toña. IMPRESSION: Endotracheal tube is in close proximity to the sukumar, report relayed to the referring c linician in the emergency center. Expiratory rotated exam, probable basilar atelectasis. Correlate fo r possible pulmonary artery hypertension.
[2021-01-21 15:40] LABS: ALT 11 U/L (4-34); AST 35 U/L (14-36); African American GFR (CKD) >90 (>60 ml/min/1.73 sqM); Albumin 3.3 g/dL (3.5-5.0); Alkaline Phosphatase 103 U/L (38-126); Anion Gap 11 mmol/L; Blood Urea Nitrogen 6 mg/dL (7-17); Carbon Dioxide 28 mmol/L (22-30); Chloride 103 mmol/L (98-107); Glucose 175 mg/dL (74-99); Magnesium 1.3 mg/dL (1.6-2.3); Non-African American GFR(CKD) 82 (>60 ml/min/1.73 sqM); Phenytoin (Dilantin) <3.0 ug/mL; Potassium 3.1 mmol/L (3.5-5.1); Sodium 142 mmol/L (137-145); Total Bilirubin 0.4 mg/dL (0.2-1.3); Total Protein 7.1 g/dL (6.3-8.2)
[2021-01-21 15:42] VITALS: RESP 12
[2021-01-21] MEDS ORDERED: VANCOMYCIN 1,500 MG in SODIUM CHLORIDE 0.9% 250 ML IVPB STA (15:44)
[2021-01-21 15:50] LABS: Lactic Acid, Venous 5.6 mmol/L (0.7-2.0)
--- NOTE | 2021-01-21 15:54 | XR ---
EXAMINATION TYPE: XR chest 1V confirm line [facility] DATE OF EXAM: 01/21/2021 COMPARISON: Chest x-ray 01/21/2021 HISTORY: Central line placement TECHNIQUE: Single frontal view of the chest is obtained. FINDINGS: There is been interval placement of a left jugular central venous catheter, distal tip is overlying the superior vena cava. Patient is rotated. No evident pneumothorax. Endotracheal tube is a pproximately 1 cm from the sukumar. There are overlying artifacts. IMPRESSION: No evident complication status post central line placement.
[2021-01-21] MEDS ORDERED: PROPOFOL 10 MG/ML 20 ML VIAL IV ONE ×2 (15:56→15:58)
--- NOTE | 2021-01-21 15:59 | ED ---
General Adult HPI - General Chief complaint: Altered Mental Status Stated complaint: Seizure Time Seen by Provider: 01/21/21 15:11 Source: EMS Mode of arrival: EMS Limitations: no limitations - History of Present Illness Initial comments: Dictation was produced using [employer] dictation software. please excuse any grammatical, word or spelling errors. Chief Complaint: 86-year-old female with history of seizure disorder presents to the emergency department for continued seizures. History of Present Illness: Patient is 86-year-old full code patient. She has history of seizure disorder. She is supposedly takes Dilantin and Keppra. There is no concerns about medication noncompliance. Patient was last observed to be normal at 1:30 PM. They live staff noted that patient wasn't seizures EMS was called. Patient was given a total of 10 mg of Versed IV by EMS with no sensation of seizure like activity. Patient has a history of right-sided stroke. They've noted no clonic like activity to the left upper extremity. Unable to obtain secondary to mental status. PHYSICAL EXAM: General Impression: Convulsing HEENT: Normocephalic atraumatic, extra-ocular movements intact, pupils equal and reactive to light bilaterally, dry mucous membranes Cardiovascular: Heart regular rate and rhythm Chest: no retractions, no tachypnea Abdomen: abdomen soft, ostomy bag in place Musculoskeletal: no peripheral edema Motor: no focal deficits noted Neurological: Convulsing does not respond to any stimuli ED course: 86 female with clinical presentation consistent with status epilepticus. She had seizures beginning at 1:30 PM was given 10 mg of IV Versed but no sensation of seizure-like activity. Patient was received intravenous 1. Patient was given 2 mg of Ativan IV. 5 minutes later patient still convulsing. CODE STATUS was discussed with family. They requested patient be full code at this time despite her significant ongoing debility and old age. Rapid sequence intubation was performed using etomidate and rocuronium. Patient seizure like movement stopped likely because patient paralyzed. Patient's blood pressure b reggie to be slightly low. Central line was placed in the left IJ for blood pressure management. She started on levophed. Patient started on quad strength Marlene fed. At 4 PM patient began convulsing again. Patient given mag myself ceftriaxone for concerns of possible NURSING PROGRAM MANAGER infection. EKG interpretation: Ventricular rate 95, sinus rhythm with sinus arrhythmia,. 180, QRS 76, QTC 5:30. No SD prolongation, no ST or T-wave changes noted. Concerning for prolonged QTC. Compared to EKG from 01/04/2021 Evaluation obtained. CBC within acceptable limits. Coag panel is negative. Metabolic panel shows potassium 3.1. Lactic acid was 5.6. Celexa within acceptable limits. Dilantin level is normal. Family were at the bedside states that patient's no longer on Dilantin which is reported in our electronic medical record. She was recently in [facility] for treatment evaluation of seizures. Computed tomography scan of the brain is unremarkable. Chest x-ray shows satisfactory placement of central venous catheter. Endotracheal tube initially was a little to deep and was retracted 1 cm performed by respiratory therapy. Patient's only be accepted by Dr. Guadalupe for ER to ER transfer. - Related Data Home Medications Medication Instructions Recorded Confirmed Aspirin 81 mg PO DAILY@0700 09/18/18 01/21/21 Melatonin 3 mg PO HS PRN 09/18/18 01/21/21 Lactulose 20 gm PO Q12H PRN 06/08/19 01/21/21 rOPINIRole HCL [Requip] 0.5 mg PO TID@0700,1300,0 01/12/20 01/21/21 Pantoprazole Sodium [Protonix] 40 mg PO BID@0700,0 08/29/20 01/21/21 Ipratropium-Albuterol Nebulize 3 ml INHALATION RT-Q6H PRN 10/05/20 01/21/21 [Duoneb 0.5 mg-3 mg/3 ml Soln] Baclofen [Lioresal] 10 mg PO Q8H PRN 10/13/20 01/21/21 Primidone [Mysoline] 25 mg PO HS@199910/13/20 01/21/21 allopurinoL [Zyloprim] 200 mg PO DAILY@69910/13/20 01/21/21 Acetaminophen [Tylenol Arthritis] 650 mg PO QID@07,13,19,23 12/08/20 01/21/21 Carbidopa/Levodopa [Carbidopa-Levo 1 tab PO TID@0700,1300,1900 12/08/20 01/21/21 ER 25-100 Tab] Budesonide [Pulmicort Flexhaler] 2 puff INHALATION RT-BID@0700,1600 01/04/21 01/21/21 Levothyroxine Sodium [Synthroid] 100 mcg PO DAILY@0700 01/04/21 01/21/21 Phenytoin Sodium Extended 100 mg PO TID@0700,1300,1900 01/04/21 01/21/21 [Dilantin] Cyanocobalamin (Vitamin B-12) 1,000 mcg PO DAILY@0700 01/21/21 01/21/21 [Vitamin B-12] Ferrous Sulfate [Iron (65 MG 325 mg PO DAILY@0700 01/21/21 01/21/21 Elemental)] Fluticasone Nasal [place] [Flonase 1 spr EA NOSTRIL DAILY PRN 01/21/21 01/21/21 Nasal [place]] Folic Acid 0.4 mg PO DAILY@0700 01/21/21 01/21/21 Metoprolol Tartrate [Lopressor] 12.5 mg PO TID@0500,1300,2100 01/21/21 01/21/21 levETIRAcetam [Keppra] 1,000 mg PO BID@0700,1900 01/21/21 01/21/21 Allergies Allergy/AdvReac Type Severity Reaction Status Date / Time amoxicillin [From Augmentin] Allergy Unknown Verified 01/21/21 15:11 clavulanic acid Allergy Unknown Verified 01/21/21 15:11 [From Augmentin] codeine Allergy Unknown Verified 01/21/21 15:11 Review of Systems ROS Statement: Those systems with pertinent positive or pertinent negative responses have been documented in the HPI. ROS Other: All systems not noted in ROS Statement are negative. Past Medical History Past Medical History: Unable to Obtain, Atrial Fibrillation, Heart Failure, CVA/TIA, Dementia, GERD/Reflux, Hypertension, Memory Impairment, Musculoskeletal Disorder, Neurologic Disorder, Osteoarthritis (OA), Pneumonia, Respiratory Disorder, Seizure Disorder, Thyroid Disorder Additional Past Medical History / Comment(s): Pt recently admitted to [facility] on 10/05/20 with loss of consciousness, acute renal failure and generalized deconditioning. Other Hx: O2 at 3L/NC ATC, R side pleural effusion/pneumonia, CVA wtih R sided weakness, parkinsons with increased tremors, metabolic encephalopathy, frequent UTIs, nephrolithiasis, pyelonephritis, hydronephrosis, anemia, gout, bowel blockage with ileostomy, last seizure many years ago, chronic low back pain/DDD, RLS, hypothyroid, sacral wound History of Any Multi-Drug Resistant Organisms: ESBL, MRSA Date of last positivie culture/infection: 12/10/20 ESBL E.Coli; MRSA 2008 MDRO Source:: ESBL Urine; MRSA Stool Past Surgical History: Unable to Obtain, Back Surgery, Bowel Resection, Cholecystectomy Additional Past Surgical History / Comment(s): Lumbar back surgeries x4, bowel resection/ileostomy, colonoscopy, cysto/bilateral ureteral stents. Past Anesthesia/Blood Transfusion Reactions: No Reported Reaction Past Psychological History: Anxiety Smoking Status: Never smoker Past Alcohol Use History: Unable to Obtain Past Drug Use History: Unable to Obtain - Past Family History Father Family Medical History: Cancer Additional Family Medical History / Comment(s): lung CA Mother Family Medical History: Cancer Additional Family Medical History / Comment(s): Ovarian cancer Sister(s) Additional Family Medical History / Comment(s): emphysema General Exam Limitations: no limitations Course Vital Signs 01/21/21 01/21/21 01/21/21 14:50 14:54 15:08 Temperature 98.6 F Pulse Rate 71 112 H 105 H Respiratory 18 12 Rate Blood Pressure 88/40 66/50 O2 Sat by Pulse 96 100 Oximetry 01/21/21 01/21/21 01/21/21 15:17 15:25 15:35 Temperature Pulse Rate 123 H 101 H 115 H Respiratory 12 12 12 Rate Blood Pressure 108/67 60/36 67/35 O2 Sat by Pulse 100 100 100 Oximetry 01/21/21 01/21/21 01/21/21 15:47 15:52 16:06 Temperature Pulse Rate 112 H 74 108 H Respiratory 12 12 12 Rate Blood Pressure 89/48 114/59 119/52 O2 Sat by Pulse 99 99 100 Oximetry Procedures - Central Line Placement Left IJ Consent Obtained: verbal consent, emergent situation Patient Placed on Monitor/Pulse Ox: Yes Prep: mask, gown, gloves Central Line Prep: Povidone-Iodine 1%, Chlorhexidine scrub Ultrasound Used for Placement: Yes Central Line Lumen Inserted: triple Bloods Obtained for Lab: No Central Line Position: good blood return, all ports aspirated, flushed, capped, sutured in place with nylon Dressing Applied: Tegaderm Post Procedure X-Ray: tip of catheter in good position Patient Tolerated Procedure: well Complications: none - Intubation Sedative: Etomidate Mg Given: 20 Paralytic: Rocuronium Mg Given: 50 Laryngoscope: [place] Size: 3 ET Tube Size: 7.5 ET Tube Uncuffed: Yes Tube Secured Depth (cm): 24 Tube Secured Location: lips Tube Placement Confirmation: visualized tube passing through cords, equal breath sounds bilaterally, no breath sounds over epigastrium, confirmation by capnometry Patient Tolerated Procedure: well Intubation Complications: none Medical Decision Making - Lab Data Result diagrams: 01/21/21 15:11 01/21/21 15:11 Lab Results 01/21/21 01/21/21 01/21/21 Range/Units 14:56 15:11 15:11 WBC 11.7 H (3.8-10.6) k/uL RBC 3.29 L (3.80-5.40) m/uL Hgb 10.4 L (11.4-16.0) gm/dL Hct 33.3 L (34.0-46.0) % MCV 101.0 H (80.0-100.0) fL MCH 31.5 (25.0-35.0) pg MCHC 31.2 (31.0-37.0) g/dL RDW 17.4 H (11.5-15.5) % Plt Count 273 (150-450) k/uL MPV 8.7 Neutrophils % 62 % Lymphocytes % 20 % Monocytes % 5 % Eosinophils % 11 % Basophils % 0 % Neutrophils # 7.3 (1.3-7.7) k/uL Lymphocytes # 2.3 (1.0-4.8) k/uL Monocytes # 0.6 (0-1.0) k/uL Eosinophils # 1.3 H (0-0.7) k/uL Basophils # 0.1 (0-0.2) k/uL Hypochromasia Moderate Anisocytosis Slight Macrocytosis Moderate PT 11.6 (9.0-12.0) sec INR 1.1 (<1.2) APTT 21.1 L (22.0-30.0) sec Sodium (137-145) mmol/L Potassium (3.5-5.1) mmol/L Chloride (98-107) mmol/L Carbon Dioxide (22-30) mmol/L Anion Gap mmol/L BUN (7-17) mg/dL Creatinine (0.52-1.04) mg/dL Est GFR (CKD-EPI)AfAm (>60 ml/min/1.73 sqM) Est GFR (CKD-EPI)NonAf (>60 ml/min/1.73 sqM) Glucose (74-99) mg/dL POC Glucose (mg/dL) 182 H (75-99) mg/dL POC Glu Correction Officer Supervisor ID [facility] [employer]man Lactic Ac Sepsis Rflx Plasma Lactic Acid Flo (0.7-2.0) mmol/L Calcium (8.4-10.2) mg/dL Magnesium (1.6-2.3) mg/dL Total Bilirubin (0.2-1.3) mg/dL AST (14-36) U/L ALT (4-34) U/L Alkaline Phosphatase (38-126) U/L Ammonia (<30) umol/L Total Protein (6.3-8.2) g/dL Albumin (3.5-5.0) g/dL Phenytoin ug/mL 01/21/21 01/21/21 01/21/21 Range/Units 15:11 15:11 15:50 WBC (3.8-10.6) k/uL RBC (3.80-5.40) m/uL Hgb (11.4-16.0) gm/dL Hct (34.0-46.0) % MCV (80.0-100.0) fL MCH (25.0-35.0) pg MCHC (31.0-37.0) g/dL RDW (11.5-15.5) % Plt Count (150-450) k/uL MPV Neutrophils % % Lymphocytes % % Monocytes % % Eosinophils % % Basophils % % Neutrophils # (1.3-7.7) k/uL Lymphocytes # (1.0-4.8) k/uL Monocytes # (0-1.0) k/uL Eosinophils # (0-0.7) k/uL Basophils # (0-0.2) k/uL Hypochromasia Anisocytosis Macrocytosis PT (9.0-12.0) sec INR (<1.2) APTT (22.0-30.0) sec Sodium 142 (137-145) mmol/L Potassium 3.1 L (3.5-5.1) mmol/L Chloride 103 (98-107) mmol/L Carbon Dioxide 28 (22-30) mmol/L Anion Gap 11 mmol/L BUN 6 L (7-17) mg/dL Creatinine 0.62 (0.52-1.04) mg/dL Est GFR (CKD-EPI)AfAm >90 (>60 ml/min/1.73 sqM) Est GFR (CKD-EPI)NonAf 82 (>60 ml/min/1.73 sqM) Glucose 175 H (74-99) mg/dL POC Glucose (mg/dL) (75-99) mg/dL POC Glu Correction Officer Supervisor ID Lactic Ac Sepsis Rflx Y Plasma Lactic Acid Flo 5.6 H* (0.7-2.0) mmol/L Calcium 9.0 (8.4-10.2) mg/dL Magnesium 1.3 L (1.6-2.3) mg/dL Total Bilirubin 0.4 (0.2-1.3) mg/dL AST 35 (14-36) U/L ALT 11 (4-34) U/L Alkaline Phosphatase 103 (38-126) U/L Ammonia 69 H (<30) umol/L Total Protein 7.1 (6.3-8.2) g/dL Albumin 3.3 L (3.5-5.0) g/dL Phenytoin <3.0 ug/mL Critical Care Time Critical Care Time: Yes Total Critical Care Time: 33 Disposition Clinical Impression: Status epilepticus Disposition: OTHER INSTITUTION NOT DEFINED Condition: Critical Instructions (If sedation given, give patient instructions): Seizure/Epilepsy Discharge Instructions & Follow-Up Referrals: Miguel Newton MD [Primary Care Provider] - 1-2 days - Out of Hospital Transfer - Req. Specs Out of Hospital Transfer - Requested Specifics: Other Emergency Center ([facility]
[2021-01-21 16:10] LABS: INR 1.1 (<1.2); Prothrombin Time 11.6 sec (9.0-12.0)
[2021-01-21 16:16] LABS: Partial Thromboplastin Time 21.1 sec (22.0-30.0)
--- NOTE | 2021-01-21 16:45 | CT ---
EXAMINATION TYPE: CT brain wo con DATE OF EXAM: 01/21/2021 COMPARISON: 01/04/2021 HISTORY: status epilepticus CT DLP: 1025.4 mGycm Automated exposure control for dose reduction was used. There is cerebral cortical atrophy. There is no mass effect nor midline shift. There is no sign of in tracranial hemorrhage. There is asymmetric atrophy of the left temporal lobe compared to the right. C alvarium is intact. Skull base is intact. There is incomplete pneumatization of the right mastoid sin uses. IMPRESSION: Cerebral atrophy. No acute intracranial abnormality. Right side mastoiditis. No change compared to re cent exam.
[2021-01-21 19:51] VITALS: BP 121/71; PULSE 102; TEMP 97.9
[2021-01-22] MEDS ORDERED: VANCOMYCIN 1,500 MG in SODIUM CHLORIDE 0.9% 250 ML IVPB SCH (12:00)
== END 2021-01-21 19:22 | disposition other institution (70) ==
LOC: EC 14:49 → 5NMEDONC 18:07 → UNDOADMIN 18:07 → EC 19:22
DX: G40.911 Epilepsy, unspecified, intractable, with status epilepticus (principal); I11.0 Hypertensive heart disease with heart failure; I50.9 Heart failure, unspecified; I48.91 Unspecified atrial fibrillation; F02.80 Dementia in other diseases classified elsewhere, unspecified severity, without behavioral disturbance, psychotic disturbance, mood disturbance, and anxiety; K21.9 Gastro-esophageal reflux disease without esophagitis; M19.90 Unspecified osteoarthritis, unspecified site; E07.9 Disorder of thyroid, unspecified; F41.9 Anxiety disorder, unspecified; Z79.82 Long term (current) use of aspirin; Z88.0 Allergy status to penicillin; Z88.1 Allergy status to other antibiotic agents; Z86.73 Personal history of transient ischemic attack (TIA), and cerebral infarction without residual deficits; Z87.440 Personal history of urinary (tract) infections; Z90.49 Acquired absence of other specified parts of digestive tract
CPT/HCPCS: 99291; 96374; 96375 ×2; 96361; 36556; 31500; 36415; 36600; 94002; 93005; 80053; 80177; 82140; 80185; 83605; 83735; 85025; 85610; 85730; 71045; 70450; J2060; J2704 ×2; J1953